=== PATIENT | female | born 1965 | race Two or more races ===

== ENCOUNTER 2020-02-09 05:54 | Inpatient (IN) | payer OTHER ==
[~2020-02-09] VITALS: Ht 160 cm; Wt 72.1 kg
[2020-02-09 06:00] VITALS: BP 135/92
--- NOTE | 2020-02-09 06:00 | NUR ---
ED Nurse Note: Pt brought into ED from [facility] by [facility] RA [facility] for c/o respiratory distress and chest pain. Pt is alert and oriented x4 but is unable to verbalized needs due to trach. Pt follows commands and continues to point to her chest indicating pain. Pt is able to mouth words and nod head yes or no to questions. Per [facility], pt was being bagged en route with BVM at 15L oxygen and saturation was 100%. Pt also became diaphoretic en route per dramatic coach. Upon ED arrival, pt is breathing normal and unlabored. Pt connected to monitor and storage bin tender and HR is elevated in 140's. ERMD is aware and bedside. Safety measures in place; will continue to closely monitor pt.
--- NOTE | 2020-02-09 06:05 | NUR ---
ED Nurse Note: RT is bedside and placing pt on mechanical ventilator. Pt vent settings are PEEP 5.0, TV 550, Fi02 30%, set RR 6.
--- NOTE | 2020-02-09 06:14 | Emergency Room Report ---
History of Present Illness General Chief Complaint: Dyspnea/Respdistress Source: Medical Record, EMS Present Illness HPI Disclaimer: Please note that this report is being documented using DRAGON technology. This can lead to erroneous entry secondary to incorrect interpretation by the dictating instrument. HPI: 54-year-old female history of breast cancer status post chemotherapy, anemia, chronic trach and vent dependent for respiratory failure, dysphagia with G-tube feeds presents for evaluation of chest pain. Per EMS, the patient motioned to nursing staff at her convalescent home that she was experiencing chest pain nonverbally approximately 30 minutes prior to arrival. She seemed to have difficulty breathing on EMS arrival causing them to disconnect her from the vent and performed bag mask maneuvers however they stated she was "fighting " in the bag. She was saturating 100% during transport and arrives in stable condition. PMH: Respiratory failure, breast cancer, anemia PSH: Tracheostomy, gastrostomy Allergies: Reviewed Social Hx: Reviewed Allergies: Coded Allergies: No Known Allergies (Unverified , 02/09/20) COVID-19 Screening Contact w/high risk pt: Yes Experienced COVID-19 symptoms?: Yes COVID-19 Testing performed INVENTORY SPECIALIST: No Review of Systems All Other Systems: negative except mentioned in HPI Physical Exam Vital Signs Date Time Temp Pulse Resp B/P (MAP) Pulse Ox O2 Delivery O2 Flow Rate FiO2 02/09/20 05:54 140 24 159/84 (109) 100 Non-Rebreather 15.0 General: Awake and alert, no acute distress HEENT: NC/AT. EOMI. Neck: Supple, trachea midline, tracheostomy tube in place Cardiovascular: Tachycardic. Resp: Trach dependent. Normal work of breathing. Abdomen: Abdomen is soft, nondistended. G-tube in place. : Arrives with Vann catheter Skin: Intact. Multiple discolorations over the face and trunk consistent with vitiligo. No abrasions, laceration or rash over the exposed skin MSK: Normal tone and bulk. No obvious deformity. Neuro: Awake and alert. Appears to be mentating appropriately though is nonverbal. Procedures Critical Care Time Critical Care Time Total critical care time: Approximately 45 minutes Due to a high probability of clinically significant, life threatening deterioration, the patient required the highest level of preparedness to intervene emergently and I personally spent this critical care time directly and personally managing the patient. This critical care time included obtaining a history, examining the patient, pulse oximetry, ordering and reviewing studies , ordering treatments, evaluating response to treatment and updating management plan as needed, frequent reassessment and discussion with other providers as well as arranging for ultimate disposition. This critical to care time was performed to assess and manage the high probability of life-threatening deterioration that could result in multiorgan failure. This critical care time is separate from the separately billable procedures and treating other patients. Medical Decision Making Diagnostic Impression: Primary Impression: Pneumonia Additional Impressions: UTI (urinary tract infection) Sepsis ER Course This a 54-year-old female presenting from convalescent home for complaints of left-sided chest pain beginning this morning. Patient was treated for dependent arrives without evidence of respiratory distress though EMS noted increased work of breathing and diaphoresis prior to arrival. She arrives tachycardic though stable condition. Concern for arrhythmia, ACS, pneumonia, pneumothorax, COVID-19 infection, UTI, sepsis among other differential diagnosis. Broad work-up initiated including cultures, lactate, chest x-ray. EKG shows sinus tachycardia without obvious ischemic changes. Chest x-ray shows patchy bilateral infiltrates concerning for COVID-19. Patient treated with broad-spectrum antibiotics, inflammatory markers and d-dimer sent. She will require admission 0720: Labs showed negative rapid test for COVID-19. Slight elevation in white count at 13.3. Anemia with a hemoglobin of 9.1 and a normal MCV. Elevated lactate at 4.0 and patient receiving 30 cc/kg IV fluid bolus per sepsis protocol. Inflammation markers elevated as is BN peptide though troponin is within normal limits. D-dimer is pending as is urinalysis. Patient received broad-spectrum antibiotics with Zosyn and vancomycin. She will be admitted to her PMD, Dr. Medina, in the SDU. Heart rate improving Sepsis reevaluation: I, Dr. Thad Vasquez, reevaluated the patient Capillary refill: Less than 2 seconds MAP:80 Heart rate: 120 Respiratory rate: 20 Initial Lactate: 4.0 Repeat Lactate: pending Pressors: Not indicated Laboratory Tests Test 02/09/20 06:00 02/09/20 06:20 02/09/20 07:10 White Blood Count 13.3 K/UL (4.8-10.8) H Red Blood Count 3.26 M/UL (4.20-5.40) L Hemoglobin 9.1 G/DL (12.0-16.0) L Hematocrit 30.3 % (37.0-47.0) L Mean Corpuscular Volume 93 FL (80-99) Mean Corpuscular Hemoglobin 28.0 PG (27.0-31.0) Mean Corpuscular Hemoglobin Concent 30.1 G/DL (32.0-36.0) L Red Cell Distribution Width 20.8 % (11.6-14.8) H Platelet Count 345 K/UL (150-450) Mean Platelet Volume 6.5 FL (6.5-10.1) Neutrophils (%) (Auto) 52.7 % (45.0-75.0) Lymphocytes (%) (Auto) 36.7 % (20.0-45.0) Monocytes (%) (Auto) 5.8 % (1.0-10.0) Eosinophils (%) (Auto) 3.4 % (0.0-3.0) H Basophils (%) (Auto) 1.4 % (0.0-2.0) Prothrombin Time 12.1 SEC (9.30-11.50) H Prothrombin Time INR 1.1 (0.9-1.1) Activated Partial Thromboplast Time 30 SEC (23-33) D-Dimer 2.31 mg/L FEU (0.00-0.49) H Sodium Level 131 MMOL/L (136-145) L Potassium Level 4.9 MMOL/L (3.5-5.1) Chloride Level 94 MMOL/L (98-107) L Carbon Dioxide Level 31 MMOL/L (21-32) Anion Gap 6 mmol/L (5-15) Blood Urea Nitrogen 19 mg/dL (7-18) H Creatinine 0.7 MG/DL (0.55-1.30) Estimated Glomerular Filtration Rate > 60 mL/min (>60) Glucose Level 194 MG/DL (74-106) H Lactic Acid Level 4.00 mmol/L (0.4-2.0) H Pending Calcium Level 8.8 MG/DL (8.5-10.1) Phosphorus Level 4.6 MG/DL (2.5-4.9) Magnesium Level 2.2 MG/DL (1.8-2.4) Ferritin 1685 NG/ML (8-388) H Total Bilirubin 0.3 MG/DL (0.2-1.0) Aspartate Amino Transferase (AST) 79 U/L (15-37) H Alanine Aminotransferase (ALT) 35 U/L (12-78) Alkaline Phosphatase 547 U/L (46-116) H Lactate Dehydrogenase 468 U/L (81-234) H Total Creatine Kinase 34 U/L (26-308) Creatine Kinase MB 2.7 NG/ML (0.0-3.6) Creatine Kinase MB Relative Index 7.9 Troponin I 0.042 ng/mL (0.000-0.056) C-Reactive Protein, Quantitative 10.7 mg/dL (0.00-0.90) H Pro-B-Type Natriuretic Peptide 58829 pg/mL (0-125) H Total Protein 9.5 G/DL (6.4-8.2) H Albumin 1.7 G/DL (3.4-5.0) L Globulin 7.8 g/dL Albumin/Globulin Ratio 0.2 (1.0-2.7) L Urine Color Yellow Urine Appearance Very cloudy Urine pH 8.0 (4.5-8.0) Urine Specific Mcclusky 1.005 (1.005-1.035) Urine Protein Negative (NEGATIVE) Urine Glucose (UA) Negative (NEGATIVE) Urine Ketones Negative (NEGATIVE) Urine Blood 2+ (NEGATIVE) H Urine Nitrite Negative (NEGATIVE) Urine Bilirubin Negative (NEGATIVE) Urine Urobilinogen Normal MG/DL (0.0-1.0) Urine Leukocyte Esterase 3+ (NEGATIVE) H Urine RBC 2-4 /HPF (0 - 2) H Urine WBC 15-20 /HPF (0 - 2) H Urine Squamous Epithelial Cells Few /LPF (NONE/OCC) Urine Triple Phosphate Crystals Many /LPF (NONE) H Urine Bacteria Moderate /HPF (NONE) H Microbiology Date/Time Source Procedure Growth Status 02/09/20 06:20 Nasopharynx SARS-CoV-2 RdRp Gene Assay - Final Complete EKG Diagnostic Results EKG Time: 05:53 Rate: tachycardiac Other Impression Sinus tachycardia, right axis deviation, precordial Q waves. No acute ST segment changes. Rhythm Strip Diag. Results Rhythm Strip Time: 05:53 EP Interpretation: yes Rate: 140s Rhythm: no PVC's, no ectopy Chest X-Ray Diagnostic Results Chest X-Ray Diagnostic Results : Chest X-Ray Ordered: Yes # of Views/Limited/Complete: 1 View Indication: Chest Pain EP Interpretation: Yes Interpretation: other - Bilateral patchy infiltrates, tracheostomy appears in place. Impression: Other - Bilateral patchy infiltrates consistent with pneumonia, trach in place Electronically Signed by: Electronically signed by Dr. Thad Vasquez Last Vital Signs Date Time Temp Pulse Resp B/P (MAP) Pulse Ox O2 Delivery O2 Flow Rate FiO2 02/09/20 05:54 140 24 159/84 (109) 100 Non-Rebreather 15.0 Disposition: ADMITTED INPATIENT Condition: Serious Thad Vasquez MD Feb 09, 2020 06:14
[2020-02-09] MEDS ORDERED: METOPROLOL TART25 MG GT (06:17)
[2020-02-09] MEDS ORDERED: BENADRYL25 M3 GT (06:17)
[2020-02-09] MEDS ORDERED: SYNTHROID25 MCG GT (06:17)
[2020-02-09] MEDS ORDERED: EPOGEN10000 UNIT SUBQ (06:17)
[2020-02-09] MEDS ORDERED: CATAPRES0.1 MG GT (06:17)
[2020-02-09] MEDS ORDERED: FAMOTIDINE20 MG GT (06:17)
[2020-02-09 06:30] VITALS: BP 101/77
[2020-02-09] MEDS ORDERED: Vancomycin 1 GM in NS 275 ML IVPB ONE (06:30)
[2020-02-09] MEDS ORDERED: Piperacillin/Tazobactam 4.5 GM in NS 110 ML IVPB ONE (06:30)
--- NOTE | 2020-02-09 06:30 | NUR ---
ED Nurse Note: Pt is tolerating mechanical ventilator well and is not pulling at tubing. Pt oxygen saturation remains at 100% at this time. See vitals flow sheet.
[2020-02-09 06:31] LABS: BASOPHILS % (AUTO) 1.4 % (0.0-2.0); EOSINOPHILS % (AUTO) 3.4 % (0.0-3.0); HEMATOCRIT 30.3 % (37.0-47.0); HEMOGLOBIN 9.1 G/DL (12.0-16.0); LYMPHOCYTES % (AUTO) 36.7 % (20.0-45.0); MEAN CORPUSCULAR VOLUME 93 FL (80-99); MONOCYTES % (AUTO) 5.8 % (1.0-10.0); NEUTROPHILS % (AUTO) 52.7 % (45.0-75.0); PLATELET COUNT 345 K/UL (150-450); RED BLOOD COUNT 3.26 M/UL (4.20-5.40); RED CELL DISTRIBUTION WIDTH 20.8 % (11.6-14.8); WHITE BLOOD COUNT 13.3 K/UL (4.8-10.8)
[2020-02-09 06:42] LABS: ANION GAP 6 mmol/L (5-15); BLOOD UREA NITROGEN 19 mg/dL (7-18); CALCIUM 8.8 MG/DL (8.5-10.1); CARBON DIOXIDE 31 MMOL/L (21-32); CHLORIDE 94 MMOL/L (98-107); CREATININE 0.7 MG/DL (0.55-1.30); POTASSIUM 4.9 MMOL/L (3.5-5.1); SODIUM 131 MMOL/L (136-145)
[2020-02-09 06:44] LABS: INR 1.1 (0.9-1.1)
[2020-02-09 06:54] LABS: ALANINE AMINOTRANSFERASE 35 U/L (12-78); ALBUMIN 1.7 G/DL (3.4-5.0); ALBUMIN/GLOBULIN RATIO 0.2 (1.0-2.7); ALKALINE PHOSPHATASE 547 U/L (46-116); ASPARTATE AMINO TRANSFERASE 79 U/L (15-37); BILIRUBIN,TOTAL 0.3 MG/DL (0.2-1.0); CKMB 2.7 NG/ML (0.0-3.6); CREATINE KINASE 34 U/L (26-308); PHOSPHORUS 4.6 MG/DL (2.5-4.9)
--- NOTE | 2020-02-09 07:08 | Diagnostic Imaging Report ---
EXAM: XR Chest, 1 View CLINICAL HISTORY: CP TECHNIQUE: Frontal view of the chest. COMPARISON: No relevant prior studies available. FINDINGS: Lungs: Patchy bilateral interstitial and airspace opacities. Pleural space: Likely small pleural effusions. Heart: Cardiomegaly. Bones/joints: Unremarkable. Tubes, lines and devices: Tracheostomy cannula in place. IMPRESSION: 1. Patchy bilateral interstitial and airspace opacities. Differential includes multifocal infection and alveolar/interstitial edema. 2. Cardiomegaly. 3. Likely small pleural effusions.
--- NOTE | 2020-02-09 07:10 | NUR ---
HAND-OFF: Report given to MAGI Flowers and endorsed plan of care.
[2020-02-09 07:11] VITALS: BP 108/74
--- NOTE | 2020-02-09 07:11 | NUR ---
ED Nurse Note: Pt VSS, considering pt baseline tachy cardia, at 115. Pt well ventilated at 100% (please view vent settings in interventions). Lactic acid reflex collected, with vre/cre, mrsa swabs. WCP taken and will be uploaded. pt has multiple pressure like ulcers all over upper and lower extremities as well as abdomen. pt has 3-4 pressure ulcers on sacrum. Pt diaper removed, pt defecated and was cleaned.
[2020-02-09 07:27] LABS: COLOR,URINE YELLOW
[2020-02-09 07:28] LABS: APPEARANCE,URINE VERY CLOUDY; BILIRUBIN, URINE NEGATIVE (NEGATIVE); GLUCOSE, URINE (UA) NEGATIVE (NEGATIVE); KETONES,URINE NEGATIVE (NEGATIVE); LEUKOCYTE ESTERASE ,URINE 3+ (NEGATIVE); NITRITE,URINE NEGATIVE (NEGATIVE); PROTEIN,URINE NEGATIVE (NEGATIVE); UROBILINOGEN,URINE NORMAL MG/DL (0.0-1.0)
--- NOTE | 2020-02-09 07:34 | NUR ---
NURSE NOTES: Received report from MAGI Flowers. Waiting for a bed and for room to be cleaned. Will call when ready.
--- NOTE | 2020-02-09 07:34 | NUR ---
ED Nurse Note: Telephone report given to MAGI Hines for continuity of care. Room still being cleaned. per RN will call back when room is availale for pt to be transferred.
[2020-02-09] MEDS ORDERED: Enoxaparin 60mg Inj SUBQ ONE (07:45)
--- NOTE | 2020-02-09 08:15 | NUR ---
ED Nurse Note: Call received will prepare to transport pt.
--- NOTE | 2020-02-09 08:30 | NUR ---
ED Nurse Note: Called RT to help transfer pt to floor
--- NOTE | 2020-02-09 08:34 | NUR ---
ED Nurse Note: RT at bedside, waiting for admission packet to be prepared.
--- NOTE | 2020-02-09 08:55 | NUR ---
NURSE NOTES: Received nurse report from MAGI Hines. Patient's in stable condition, no s/s of distress or SOB, no complains of pain, c/o itchiness all over the body. AAO x 3, dysphagia, tracheostomy noted, dressing dry and intact. IV RH 22g is saline locked, flushed, patent and asymptomatic. Patient's on ventilator , setting at: SIMV 6 VT550 PEEP 5, FiO2 30%. GT noted, flushed, patent. Bed low and locked, call light within reach, side rails x 3, bed alarm is armed, fall education given. ID band checked, ekg monitor applied, changed gown, patient's belonging list went over with two nurses and patient at bedside, signed by both nurses. Wound assessment performed and pictures taken. Suction and oral care provided. Will continue to monitor.
--- NOTE | 2020-02-09 08:55 | NUR ---
TRANSFER TO FLOOR: Patient transferred to SDU as ordered, per ERMD. Report given to jonel petty. pt belongings given to pt.
--- NOTE | 2020-02-09 08:56 | NUR ---
HAND-OFF: Report given to Kyleigh Smith RN. Patient is in bed, vss, no acute distress, and on laboratory monitor. No admitting order at this time. Patient recently transferred to SDU from ED.
--- NOTE | 2020-02-09 10:00 | NUR ---
NURSE NOTES: Called Dr. Dominguez and got admission orders from MD. Orders acknowledged and carried out. VS BP 117/78, HR 116, Temp 96.1, O2 98%, RR 18. [facility]: Glucerna 1.2 at 60cc/hr, no flu and PNA vaccination; patient refused.
--- NOTE | 2020-02-09 10:30 | NUR ---
NURSE NOTES: Left message and made DR. Medina aware that patient has one time of PSVT of 149 beats. Awaiting for response.
[2020-02-09 12:00] VITALS: BP 99/67
[2020-02-09] MEDS ORDERED: Piperacillin/Tazobactam 3.375 GM in NS 110 ML IVPB SCH (12:00)
[2020-02-09] MEDS: DiphenhydrAMINE 25mg/10ml Elixir GT PRN (12:06)
[2020-02-09] MEDS: Acetaminophen 650mg/20.3ml GT PRN (12:06)
--- NOTE | 2020-02-09 12:14 | Consultation ---
DATE OF CONSULTATION: 02/09/2020 INFECTIOUS DISEASES CONSULTATION CONSULTING PHYSICIAN: Hong Camacho MD. REFERRING PHYSICIAN: Stevenson Medina MD. REASON FOR CONSULTATION: Pneumonia. HISTORY OF PRESENTING ILLNESS: This is a 54-year-old lady with history of breast cancer, status post chemotherapy, respiratory failure, status post tracheostomy, status post G-tube placement for dysphagia, who came in from a convalescent facility with chest pain and shortness of breath. There was a concern for pneumonia and a urinary tract infection and an Infectious Diseases consultation has been obtained for antibiotics. PAST MEDICAL HISTORY: 1. History of breast cancer, status post chemotherapy. 2. Respiratory failure, status post tracheostomy. 3. Anemia. 4. Status post G-tube placement. SOCIAL HISTORY: Unknown. FAMILY HISTORY: Unknown. REVIEW OF SYSTEMS: Unable to obtain currently. MEDICATIONS: As an inpatient, she is on levothyroxine, Protonix, subcutaneous heparin, Mylanta, clonidine, Zosyn, famotidine, Benadryl, metoprolol, IV vancomycin, Tylenol. ALLERGIES: No known drug allergies. PHYSICAL EXAMINATION: VITAL SIGNS: Temperature of 98.1, T-max of 98.1, pulse of 117, respiratory rate 22, blood pressure 106/75, O2 saturation of 99%. HEENT: Pupils equally reactive to light and accommodation. Mouth appears clean without thrush. NECK: Supple. No adenopathy. No JVD. Tracheostomy site is clean CARDIOVASCULAR: Regular rate and rhythm. No murmurs. LUNGS: Clear to auscultation bilaterally. No crackles. No wheezes. ABDOMEN: Soft, nontender. G-tube site appears clean. EXTREMITIES: No cyanosis, no clubbing, no edema. LABORATORY AND DIAGNOSTIC DATA: White count 13.3, hemoglobin 9.1, hematocrit 30.3, MCV 93, platelet count 345,000 with neutrophils of %. Sodium 131, potassium 4.9, chloride 94, bicarb 31, BUN 19, creatinine 0.9, glucose 194, calcium 8.8. Ferritin 1685. Total bilirubin 0.3. AST 79, ALT 35, alkaline phosphatase 547. LDH 468. CK 34, CK-MB 2.7. Troponin 0.042. C-reactive protein 10.7. Beta-natriuretic peptide 13,872. Total protein 9.5, albumin 1.7. UA is showing 15 to 20 white cells. COVID-19 test is negative. Chest x-ray is showing patchy bilateral interstitial and airspace opacities, consists multifocal infection, cardiomegaly, likely small pleural effusion. ASSESSMENT: This is a 54-year-old lady with history of breast cancer, status post chemotherapy, who comes in with hypoxia and was found to have. 1. Likely pneumonia, her COVID-19 rapid test was negative. 2. Respiratory failure, status post tracheostomy. 3. Urinary tract infection. PLAN: 1. Continue IV vancomycin and Zosyn. 2. We will follow up cultures and adjust antibiotics accordingly. 3. We will order sputum for Gram stain and culture. I would like to thank, Dr. Medina, for this consultation. Hong Camacho M.D. DR: AUBREY JOB#: [id number] CC: Stevenson Medina MD.; Fax#: [phone]
[2020-02-09] MEDS: Metoprolol Tartrate 12.5mg TAB GT SCH ×2 (12:41→21:11)
--- NOTE | 2020-02-09 14:17 | NUR ---
CASE MANAGEMENT:INITIAL REVIEW 54 YR OLD FEMALE BIBA FROM [facility] [place] CC;DYSPNEA. RESPIRATORY DISTRESS. SI;CHEST PAIN 97.9 140 24 159/84 100% 15L FIO2 @ 30% WBC 13.3 H/H 9.1/30.3 NA 131 BUN 19 BG 194 AST 79 ALK PHOS 547 BNP 07783 ALB 1.7 PT 12.1 D-DIMER 2.31 UA+ BLOOD, LEUKOCYTE ESTERASE, RBC, WBC, TRIPLE PHOS CRYSTALS, BACTERIA COVID-19 ~ NEGATIVE CXR~1. Patchy bilateral interstitial and airspace opacities. Differential includes multifocal infection and alveolar/interstitial edema. 2. Cardiomegaly. 3. Likely small pleural effusions. IS;VANCOMYCIN IV ZOSYN IV IVF NS BOLUS LOVENOX SUBQ ADMITTED TO [facility] 02/09/20 @ 0728 [facility] STATUS DCP;FROM [facility] [place]
--- NOTE | 2020-02-09 14:38 | NUR ---
INSURANCE CLINICALS AND REVIEW HAVE BEEN FAXED TO [facility] P: [phone] F: [phone]
[2020-02-09] MEDS: Zosyn 3.375gm q8h **Extended infusion IVPB SCH ×4 (14:55→21:11)
--- NOTE | 2020-02-09 15:31 | NUR ---
NURSE NOTES:WOUND CARE NOTES:Pt presented on admission with Pressure Injuries, Tracheostomy,Alopecia, Generalized Hypopigmented Skin plaques. Few plaques noted to be open lesions but are pink and dry. Skin assessed under collar of trach and no areas of skin breakdown noted. Full thickness Pressure injury noted to R Buttocks(L)5.7cm x (W)1.7cm x (D)0.3cm. Base of wound is 90% beefy-red,10% slough. Borders are macerated . surrounding dry skin with hypopigmented plaques. Full thickness Pressure injury L Buttocks(L)4.6cm x (W)4.5cm. Base of wound has clusters wounds with intertwining bridges. Wounds have mixed slough and jack appearances. Small amt serous exudate noted. Surrounding dry hypopigmented skin plaques. Proximally and in close proximity skin is denuded. Small pustule with surrounding erythema noted L Hallux(L)0.5cm x (W)0.6cm. NO changes in skin temp periwound. An area of hyperpigmentation from previous wound noted to medial/posterior R Heel. L Heel is otherwise boggy with non-blanching erythema. Reabsorbed DTPI L Heel(L)2.2cm x (W)2cm. Dry brown eschar at base of wound. NO erythema or fluctuance periwound. Unstageable Pressure injury L lateral Malleolus(L)0.7cm x (W)0.9cm. Base of wound has 100% slough.edges dry and adherent to base of wound. No erythema,induration,or fluctuance periwound. Tx.Plan: Cleanse wounds R and L Buttocks with Saline. Apply Therahoney to wounds. Apply Moisture Barrier Paste Periwound. Cover with Optifoam drsg Daily and prn. Apply Betadine to wound R Hallux. Cover with Optifoam drsg every 3 days and prn. Apply Betadine to L lateral Malleolus. Cover with Optifoam drsg. Change every 3 days and prn. Apply Cavilon Skin Barrier to both heels. Cover each heel with Optifoam drsg. Change every 7 days and prn. Reposition at least every 2hours or as tolerated. Off-load heels with pillow. APM/ELIDIA Mattress overlay.
[2020-02-09 16:00] VITALS: BP 93/60
--- NOTE | 2020-02-09 16:00 | NUR ---
NURSE NOTES: Notified and made Dr. Medina aware again of PSVT at 1030 and patient's been sinus tach; no math professor consult. MD ordered NS bolus x1. Order acknowledged and carried out.
--- NOTE | 2020-02-09 18:26 | Consultation ---
History of Present Illness General Date patient seen: Feb 09, 2020 Chief Complaint: Dyspnea/Respdistress Present Illness HPI This is a unfortunate 54-year-old female with history of breast cancer status post chemotherapy, anemia, chronic trach and vent dependent for respiratory failure, dysphagia with G-tube feeds presents for evaluation of chest pain. Per EMS, the patient motioned to nursing staff at her convalescent home that she was experiencing chest pain nonverbally approximately 30 minutes prior to arrival. She seemed to have difficulty breathing on EMS arrival causing them to disconnect her from the vent and performed bag mask maneuvers however they stated she was "fighting" in the bag. She was saturating 100% during transport and arrives in stable condition. admitted for care and management. surgery called to evaluate and assist with care. Allergies: Coded Allergies: No Known Allergies (Unverified , 02/09/20) Medication History Scheduled Clonidine Hcl* (Catapres*), 0.1 MG GT EVERY 6 HOURS, (Reported) Epoetin Liam (Epogen), 10,000 UNIT SUBQ 3XW, (Reported) Famotidine* (Pepcid 20mg tablet*), 20 MG GT TWICE A DAY, (Reported) Levothyroxine Sodium* (Synthroid*), 75 MCG GT DAILY, (Reported) Metoprolol Tartrate* (Metoprolol Tartrate*), 12.5 MG GT EVERY 12 HOURS, ( Reported) Miscellaneous Medications Diphenhydramine HCl (Benadryl), 25 MG GT, (Reported) Patient History Limited by: medical condition History Provided By: Medical Record, PMD Healthcare decision maker N Resuscitation status Advanced Directive on File Past Medical/Surgical History Past Medical/Surgical History: (1) Sepsis (2) UTI (urinary tract infection) (3) Pneumonia Review of Systems ROS Narrative unable to obtain given medical condition Physical Exam General Appearance: no apparent distress, mild distress Lines, tubes and drains: peripheral HEENT: mucous membranes moist Neck: normal inspection, trach Respiratory/Chest: on vent Cardiovascular/Chest: normal peripheral pulses, normal rate, regularly irregular Abdomen: soft, no organomegaly, no mass, feeding tube Genitourinary/Rectal: normal rectal exam Extremities: normal inspection, slow capillary refill Skin Exam: warm/dry, rash, other Neurologic: unresponsiveness Last 24 Hour Vital Signs Date Time Temp Pulse Resp B/P (MAP) Pulse Ox O2 Delivery O2 Flow Rate FiO2 02/09/20 17:07 119 24 30 02/09/20 16:00 30 02/09/20 16:00 98.2 114 21 93/60 (71) 100 02/09/20 15:58 Mechanical Ventilator 02/09/20 15:30 118 23 30 02/09/20 15:26 112 02/09/20 13:23 118 23 100 Mechanical Ventilator 30 02/09/20 13:00 120 23 30 02/09/20 12:41 91 117/78 02/09/20 12:00 30 02/09/20 12:00 97.3 115 18 99/67 (78) 98 02/09/20 12:00 Mechanical Ventilator 02/09/20 12:00 121 02/09/20 11:30 119 22 30 02/09/20 10:36 Mechanical Ventilator 02/09/20 10:22 149 02/09/20 09:19 118 02/09/20 08:50 98.1 117 22 106/75 99 Mechanical Ventilator 15.0 30 02/09/20 08:45 118 19 30 02/09/20 07:11 97.9 115 23 108/74 100 Mechanical Ventilator 15.0 30 02/09/20 06:34 133 22 30 02/09/20 06:30 97.5 119 20 101/77 100 Mechanical Ventilator 30 02/09/20 06:00 97.8 140 24 135/92 100 Ambu-Bag 15.0 02/09/20 06:00 140 24 Ambu-Bag 15.0 02/09/20 05:54 140 24 159/84 (109) 100 Non-Rebreather 15.0 Laboratory Tests Test 02/09/20 06:00 02/09/20 06:20 02/09/20 07:10 02/09/20 11:30 White Blood Count 13.3 K/UL (4.8-10.8) H Red Blood Count 3.26 M/UL (4.20-5.40) L Hemoglobin 9.1 G/DL (12.0-16.0) L Hematocrit 30.3 % (37.0-47.0) L Mean Corpuscular Volume 93 FL (80-99) Mean Corpuscular Hemoglobin 28.0 PG (27.0-31.0) Mean Corpuscular Hemoglobin Concent 30.1 G/DL (32.0-36.0) L Red Cell Distribution Width 20.8 % (11.6-14.8) H Platelet Count 345 K/UL (150-450) Mean Platelet Volume 6.5 FL (6.5-10.1) Neutrophils (%) (Auto) 52.7 % (45.0-75.0) Lymphocytes (%) (Auto) 36.7 % (20.0-45.0) Monocytes (%) (Auto) 5.8 % (1.0-10.0) Eosinophils (%) (Auto) 3.4 % (0.0-3.0) H Basophils (%) (Auto) 1.4 % (0.0-2.0) Prothrombin Time 12.1 SEC (9.30-11.50) H Prothromb Time International Ratio 1.1 (0.9-1.1) Activated Partial Thromboplast Time 30 SEC (23-33) D-Dimer 2.31 mg/L FEU (0.00-0.49) H Sodium Level 131 MMOL/L (136-145) L Potassium Level 4.9 MMOL/L (3.5-5.1) Chloride Level 94 MMOL/L (98-107) L Carbon Dioxide Level 31 MMOL/L (21-32) Anion Gap 6 mmol/L (5-15) Blood Urea Nitrogen 19 mg/dL (7-18) H Creatinine 0.7 MG/DL (0.55-1.30) Estimat Glomerular Filtration Rate > 60 mL/min (>60) Glucose Level 194 MG/DL (74-106) H Lactic Acid Level 4.00 mmol/L (0.4-2.0) H 1.70 mmol/L (0.66-2.22) Calcium Level 8.8 MG/DL (8.5-10.1) Phosphorus Level 4.6 MG/DL (2.5-4.9) Magnesium Level 2.2 MG/DL (1.8-2.4) Ferritin 1685 NG/ML (8-388) H Total Bilirubin 0.3 MG/DL (0.2-1.0) Aspartate Amino Transf (AST/SGOT) 79 U/L (15-37) H Alanine Aminotransferase (ALT/SGPT) 35 U/L (12-78) Alkaline Phosphatase 547 U/L (46-116) H Lactate Dehydrogenase 468 U/L (81-234) H Total Creatine Kinase 34 U/L (26-308) Creatine Kinase MB 2.7 NG/ML (0.0-3.6) Creatine Kinase MB Relative Index 7.9 Troponin I 0.042 ng/mL (0.000-0.056) 0.048 ng/mL (0.000-0.056) C-Reactive Protein, Quantitative 10.7 mg/dL (0.00-0.90) H Pro-B-Type Natriuretic Peptide 28610 pg/mL (0-125) H Total Protein 9.5 G/DL (6.4-8.2) H Albumin 1.7 G/DL (3.4-5.0) L Globulin 7.8 g/dL Albumin/Globulin Ratio 0.2 (1.0-2.7) L Urine Color Yellow Urine Appearance Very cloudy Urine pH 8.0 (4.5-8.0) Urine Specific [place] 1.005 (1.005-1.035) Urine Protein Negative (NEGATIVE) Urine Glucose (UA) Negative (NEGATIVE) Urine Ketones Negative (NEGATIVE) Urine Blood 2+ (NEGATIVE) H Urine Nitrite Negative (NEGATIVE) Urine Bilirubin Negative (NEGATIVE) Urine Urobilinogen Normal MG/DL (0.0-1.0) Urine Leukocyte Esterase 3+ (NEGATIVE) H Urine RBC 2-4 /HPF (0 - 2) H Urine WBC 15-20 /HPF (0 - 2) H Urine Squamous Epithelial Cells Few /LPF (NONE/OCC) Urine Triple Phosphate Crystals Many /LPF (NONE) H Urine Bacteria Moderate /HPF (NONE) H Test 02/09/20 16:10 Troponin I 0.044 ng/mL (0.000-0.056) Microbiology Date/Time Source Procedure Growth Status 02/09/20 06:20 Nasopharynx SARS-CoV-2 RdRp Gene Assay - Final Complete 02/09/20 07:10 Rectum Received Height (Feet): 5 Height (Inches): 3.00 Weight (Pounds): 130 Medications Current Medications Medications (Trade) Dose Ordered Sig/Lucy Route PRN Reason Start Time Stop Time Status Last Admin Dose Admin Acetaminophen (Tylenol) 650 mg Q4H PRN GT Mild Pain (Pain Scale 1-3) 02/09/20 10:30 03/10/20 10:29 02/09/20 12:06 Al Hydroxide/Mg Hydroxide (Mylanta) 30 ml FOUR TIMES A DAY GT 02/09/20 13:00 03/10/20 12:59 02/09/20 18:16 Clonidine HCl (Catapres Tab) 0.1 mg Q4H PRN GT For High Blood Pressure 02/09/20 13:45 05/09/20 13:44 Diphenhydramine HCl (Benadryl) 25 mg Q6H PRN GT ITCHING 02/09/20 10:30 03/10/20 10:29 02/09/20 12:06 Famotidine (Pepcid) 20 mg TWICE A DAY GT 02/09/20 11:00 05/09/20 10:59 02/09/20 18:16 Heparin Sodium (Porcine) (Heparin 5000 units/ml) 5,000 units EVERY 12 HOURS SUBQ 02/09/20 21:00 03/25/20 20:59 Lansoprazole (Prevacid) 30 mg DAILY GT 02/10/20 09:00 03/11/20 08:59 Levothyroxine Sodium (Synthroid) 75 mcg DAILY GT 02/10/20 09:00 03/11/20 08:59 Metoprolol Tartrate (Lopressor) 12.5 mg EVERY 12 HOURS GT 02/09/20 11:15 05/09/20 11:14 02/09/20 12:41 Piperacillin Sod/ Tazobactam Sod 3.375 gm/Sodium Chloride 110 ml @ 27.5 mls/hr EVERY 8 HOURS IVPB 02/09/20 14:00 02/14/20 13:59 02/09/20 14:55 Vancomycin HCl (Vanco pharmacy to dose) 1 ea DAILY PRN MISC Per rx protocol 02/09/20 10:30 03/10/20 10:29 Vancomycin HCl 750 mg/Sodium Chloride 275 ml @ 183.333 mls/hr Q12HR@0600,1800 IVPB 02/09/20 18:00 02/14/20 17:59 Assessment/Plan Problem List: (1) Sepsis Assessment & Plan: Leukocytosis, anemia, lactic acidosis sepsis uro uti likely wounds noted and stable unlikely etiology nutritional optimization tf as tolerated vent support cxr noted ICD Codes: A41.9 - Sepsis, unspecified organism SNOMED: 55685144 (2) UTI (urinary tract infection) ICD Codes: N39.0 - Urinary tract infection, site not specified SNOMED: 68217902 (3) Pneumonia ICD Codes: J18.9 - Pneumonia, unspecified organism SNOMED: 208233795 (4) Decubitus skin ulcer Assessment & Plan: Pt presented on admission with Pressure Injuries, Tracheostomy,Alopecia, Generalized Hypopigmented Skin plaques. Few plaques noted to be open lesions but are pink and dry. Skin assessed under collar of trach and no areas of skin breakdown noted. Full thickness Pressure injury noted to R Buttocks(L)5.7cm x (W)1.7cm x (D) 0.3cm. Base of wound is 90% beefy-red,10% slough. Borders are macerated . surrounding dry skin with hypopigmented plaques. Full thickness Pressure injury L Buttocks(L)4.6cm x (W)4.5cm. Base of wound has clusters wounds with intertwining bridges. Wounds have mixed slough and jack appearances. Small amt serous exudate noted. Surrounding dry hypopigmented skin plaques. Proximally and in close proximity skin is denuded. Small pustule with surrounding erythema noted L Hallux(L)0.5cm x (W)0.6cm. NO changes in skin temp periwound. An area of hyperpigmentation from previous wound noted to medial/posterior R Heel. L Heel is otherwise boggy with non-blanching erythema. Reabsorbed DTPI L Heel(L)2.2cm x (W)2cm. Dry brown eschar at base of wound. NO erythema or fluctuance periwound. Unstageable Pressure injury L lateral Malleolus(L)0.7cm x (W)0.9cm. Base of wound has 100% slough.edges dry and adherent to base of wound. No erythema, induration,or fluctuance periwound. Tx.Plan: Cleanse wounds R and L Buttocks with Saline. Apply Therahoney to wounds. Apply Moisture Barrier Paste Periwound. Cover with Optifoam drsg Daily and prn. Apply Betadine to wound R Hallux. Cover with Optifoam drsg every 3 days and prn. Apply Betadine to L lateral Malleolus. Cover with Optifoam drsg. Change every 3 days and prn. Apply Cavilon Skin Barrier to both heels. Cover each heel with Optifoam drsg. Change every 7 days and prn. Reposition at least every 2hours or as tolerated. Off-load heels with pillow. APM/ELIDIA Mattress overlay. ICD Codes: L89.90 - Pressure ulcer of unspecified site, unspecified stage SNOMED: 483916667 Zia Chung Feb 09, 2020 18:26
[2020-02-09] MEDS: Vancomycin 750mg/NS 275ml IVPB SCH ×2 (18:59)
--- NOTE | 2020-02-09 19:15 | NUR ---
NURSE HAND-OFF REPORT: Important Events on Shift: Multiple wounds, diarrhea, 1 episode of PSVT Patient Status: Fair, anxious Diet: Glucerna 1.2 @ 60cc/hr Pending Orders: n.a Pending Results/Labs:Troponin AM, CMP/CBC AM, Chest Xray AM Pending MD notification: n.a Latest Vital Signs: Temperature 98.2 , Pulse 116 , B/P 93 /60 , Respiratory Rate 23 , O2 SAT 100 , Mechanical Ventilator, O2 Flow Rate 15.0 . Vital Sign Comment: n.a EKG Rhythm: Sinus Tachycardia Rhythm change?: N MD Notified?: - MD Response: Message left await call Latest Hope Fall Score: 35 Fall Risk: Medium Risk Safety Measures: Call light , Bed Alarm Zone 1, Side Rails Side Rails x2, Bed position Low and Locked. Fall Precautions: Report given to Ese Teresa RN
--- NOTE | 2020-02-09 19:15 | NUR ---
NURSE NOTES: Received pt's report from MAGI Iraheta. Pt is on bed with open eyes. A/O X 3, Pt is on vent but able to express what pt needs. SpO2 100%, HR 118 at this moment. Informed that Pt was on sinus tachycardia since admission. Pt is on Vann, yellow urine noted. Pt's skin, all of pt's body has small open wounds but not from the pressure. Pt's sacral-stage 3 wound noted. IV site on the left hand, intact and clean noted. Call-light within reach, bed is low and locked. Will continue to monitor with plan of care.
[2020-02-09 20:00] VITALS: BP 121/69
[2020-02-09] MEDS: Heparin 5000 units/ml inj SUBQ SCH (21:10)
[2020-02-10] VITALS: BP 112/85
--- NOTE | 2020-02-10 00:44 | Consultation ---
DATE OF CONSULTATION: 02/09/2020 CONSULTING PHYSICIAN: Luis Felipe Sorto M.D. REQUESTING PHYSICIAN: Stevenson Medina M.D. REASON FOR CONSULTATION: Cardiomyopathy, severe sepsis, tachycardia, and chest pain. HISTORY OF PRESENT ILLNESS: This 54-year-old resides at a [facility] facility. She has a tracheostomy and has chronic ventilator dependency for respiratory failure as well as a G-tube for nutrition. She apparently complained of chest pain and some shortness of breath. She was noted to have abnormal laboratory studies. She was seen in the emergency room and admitted for further management. The patient had an echocardiogram earlier this afternoon and was noted to have mild left ventricular global hypokinesis with ejection fraction of approximately 45%. I have been asked to assist with cardiovascular care. PAST MEDICAL HISTORY: Breast cancer with history of chemotherapy and anemia due to chronic disease, respiratory failure with trach, dysphagia with gastrostomy tube, and hypothyroidism. ALLERGIES: None. MEDICATIONS: Reviewed and reconciled. SOCIAL HISTORY: No record of smoking, alcohol, or substance abuse. REVIEW OF SYSTEMS: Not obtainable from the patient. According to her son, she was recently hospitalized and just discharged back to the [facility] facility couple of days ago following treatment of infection. PHYSICAL EXAMINATION: VITAL SIGNS: Blood pressure 99/67, heart rate 121, respiratory rate 18, and afebrile. HEENT: Temporal wasting. LUNGS: Bilateral breath sounds with rhonchi. CARDIAC: Regular rhythm. Rapid rate. Normal S1 and S2. ABDOMEN: Soft with G-tube. No skin site infection. EXTREMITIES: Without edema. LABORATORY DATA: White count 13 and hemoglobin 9.1. Sodium 131, potassium 4.9, chloride 94, bicarb 31, BUN 19, and creatinine 0.9. Lactic acid this morning was 4, repeated is 1.7. Troponin is 0.042. Pronatriuretic peptide is almost 14,000, albumin 1.7. IMPRESSION: 1. Probable sepsis. 2. Possible healthcare associated pneumonia. 3. Acute on chronic systolic and diastolic congestive heart failure. 4. Cardiomyopathy, etiology unknown, but may be due to chemotherapy. 5. Ventilator-dependent respiratory failure. 6. Urinary tract infection. 7. Sinus tachycardia. 8. Severe protein calorie malnutrition. 9. Hyponatremia. 10. Hypochloremia. 11. Anemia due to chronic disease. 12. Acute myocardial ischemia. PLAN: 1. Saline hydration. 2. Antimicrobials per Infectious Disease method consultant. 3. Ventilator support. 4. Cardiac monitoring. 5. Thyroid panel. 6. Initiate beta-mingo with hold parameters for low range blood pressure. 7. DVT prophylaxis. 8. Serial troponins. 9. Trend BNP and monitor volume status closely. 10. The patient is high risk. Luis Felipe Sorto M.D. DR: ANGELINA JOB#: [id number] CC: MIRNA
[2020-02-10 04:00] VITALS: BP 113/80
[2020-02-10 04:39] LABS: HEMATOCRIT 26.8 % (37.0-47.0); HEMOGLOBIN 8.1 G/DL (12.0-16.0); MEAN CORPUSCULAR VOLUME 93 FL (80-99); PLATELET COUNT 315 K/UL (150-450); RED BLOOD COUNT 2.89 M/UL (4.20-5.40); RED CELL DISTRIBUTION WIDTH 20.9 % (11.6-14.8); WHITE BLOOD COUNT 8.7 K/UL (4.8-10.8)
[2020-02-10 04:52] LABS: ANION GAP 4 mmol/L (5-15); BLOOD UREA NITROGEN 19 mg/dL (7-18); CALCIUM 8.2 MG/DL (8.5-10.1); CARBON DIOXIDE 29 MMOL/L (21-32); CHLORIDE 103 MMOL/L (98-107); CREATININE 0.7 MG/DL (0.55-1.30); POTASSIUM 4.2 MMOL/L (3.5-5.1); SODIUM 136 MMOL/L (136-145)
--- NOTE | 2020-02-10 05:50 | NUR ---
NURSE NOTES: Called Dr. Medina and left a message regarding Pt's elevated troponin level, 0.065. Awaiting for his response.
[2020-02-10] MEDS: Zosyn 3.375gm q8h **Extended infusion IVPB SCH ×6 (06:11→20:30)
[2020-02-10] MEDS: Vancomycin 750mg/NS 275ml IVPB SCH ×4 (06:11→18:07)
--- NOTE | 2020-02-10 07:32 | NUR ---
NURSE HAND-OFF REPORT: Important Events on Shift:Troponin went up. Patient Status: Sinus tachy. Diet: GT, Glucerna 1.2@60mL/HR Pending Orders: N Pending Results/Labs: Pending MD notification: Notified Dr. Medina, regarding pt's elevated troponin level 0.065. Latest Vital Signs: Temperature 97.3 , Pulse 125 , B/P 113 /80 , Respiratory Rate 23 , O2 SAT 100 , Mechanical Ventilator, O2 Flow Rate 15.0 . Vital Sign Comment: Stable, except sinus tachycardia. EKG Rhythm: Sinus Tachycardia Rhythm change?: N MD Notified?: - MD Response: Message left await call Latest Hope Fall Score: 50 Fall Risk: High Risk Safety Measures: Call light Within Reach, Bed Alarm Zone 3, Side Rails Side Rails x3, Bed position Low and Locked. Fall Precautions: Yellow Socks Yellow Gown Patient Fall Education Report given to MAGI Iraheta.
--- NOTE | 2020-02-10 07:35 | NUR ---
NURSE NOTES: Nurse report given by Shayan Silva RN. Patient's awake, AAO x3, dysphasia, trach presents with ventilator SIMV 6 VT550 FIO2 30% Peeps 5. IV on LH and RAC running fluids, no s/s of tenderness or infiltration. GT noted, tube feeding running, no residuals. Bed low and locked, call light within reach, side rails x 3. Will continue to monitor. Addendum: 02/10/20 at 0938 by Kyleigh Smith RN Continuing note: Edwar noted, draining well, yellow color. Skin assessment performed, dressing changed.
[2020-02-10 08:00] VITALS: BP 118/78
[2020-02-10] MEDS: Levothyroxine 25mcg tab GT SCH (08:29)
[2020-02-10] MEDS: Metoprolol Tartrate 12.5mg TAB GT SCH ×2 (08:29→20:31)
[2020-02-10] MEDS: Heparin 5000 units/ml inj SUBQ SCH ×2 (08:31→20:33)
--- NOTE | 2020-02-10 09:22 | Diagnostic Imaging Report ---
EXAM: XR Chest, 1 View CLINICAL HISTORY: PLEFF TECHNIQUE: Frontal view of the chest. COMPARISON: No relevant prior studies available. FINDINGS/IMPRESSION: EKG leads overlie the patient. Midline tracheostomy tube. Extensive patchy bilateral airspace opacities, consistent with severe multifocal infiltrate. No definite pleural effusion. No pneumothorax. Cardiomegaly.
--- NOTE | 2020-02-10 10:17 | General Progress Note ---
Assessment/Plan Assessment/Plan: diarrhea respiratory failure trach sinus tachycardia anemia wounds dermatitis PLAN Cdif iv antibiotics ID noted IV hydration wound care all consultants appreciated remains ill impression, plan, and exam edited and reviewed in detail care discussed with RN Subjective ROS Limited/Unobtainable: Yes Allergies: Coded Allergies: No Known Allergies (Unverified , 02/09/20) Subjective significant diarrhea Objective Last 24 Hour Vital Signs Date Time Temp Pulse Resp B/P (MAP) Pulse Ox O2 Delivery O2 Flow Rate FiO2 02/10/20 08:29 128 118/78 02/10/20 08:21 128 02/10/20 08:00 97.7 125 23 118/78 (91) 100 02/10/20 08:00 30 02/10/20 07:16 131 22 30 02/10/20 05:00 125 23 30 02/10/20 04:00 97.3 128 24 113/80 (91) 100 02/10/20 04:00 Mechanical Ventilator 02/10/20 04:00 30 02/10/20 03:33 124 02/10/20 03:22 125 23 30 02/10/20 01:10 125 27 30 02/10/20 00:00 97.7 120 25 112/85 (94) 100 02/10/20 00:00 Mechanical Ventilator 02/10/20 00:00 30 02/09/20 23:35 127 02/09/20 22:57 125 19 30 02/09/20 21:20 127 25 30 02/09/20 21:11 128 129/79 02/09/20 20:00 Mechanical Ventilator 02/09/20 20:00 30 02/09/20 20:00 99.5 110 25 121/69 (86) 99 02/09/20 19:23 114 02/09/20 19:00 116 23 30 02/09/20 17:07 119 24 30 02/09/20 16:00 30 02/09/20 16:00 98.2 114 21 93/60 (71) 100 02/09/20 15:58 Mechanical Ventilator 02/09/20 15:30 118 23 30 02/09/20 15:26 112 02/09/20 13:23 118 23 100 Mechanical Ventilator 30 02/09/20 13:00 120 23 30 02/09/20 12:41 91 117/78 8/15/20 12:00 30 02/09/20 12:00 97.3 115 18 99/67 (78) 98 02/09/20 12:00 Mechanical Ventilator 02/09/20 12:00 121 02/09/20 11:30 119 22 30 02/09/20 10:36 Mechanical Ventilator 02/09/20 10:22 149 Intake and Output 02/09/20 02/10/20 19:00 07:00 Intake Total 800 ml 1141.666 ml Output Total 375 ml Balance 800 ml 766.666 ml Intake Free Water 200 ml IV Total 421.666 ml Tube Feeding 600 ml 720 ml Output Urine Total 375 ml # Voids 1 # Bowel Movements 2 4 Laboratory Tests 02/09/20 11:30: Troponin I 0.048 02/09/20 16:10: Troponin I 0.044 02/10/20 02:30: Troponin I 0.065H, White Blood Count 8.7, Red Blood Count 2.89L, Hemoglobin 8.1L , Hematocrit 26.8L, Mean Corpuscular Volume 93, Mean Corpuscular Hemoglobin 28.2 , Mean Corpuscular Hemoglobin Concent 30.4L, Red Cell Distribution Width 20.9H, Platelet Count 315, Mean Platelet Volume 6.5, Neutrophils (%) (Auto) , Lymphocytes (%) (Auto) , Monocytes (%) (Auto) , Eosinophils (%) (Auto) , Basophils (%) (Auto) , Differential Total Cells Counted 100, Neutrophils % ( Manual) 92H, Lymphocytes % (Manual) 3L, Monocytes % (Manual) 4, Eosinophils % ( Manual) 0, Basophils % (Manual) 1, Band Neutrophils 0, Platelet Estimate Adequate, Platelet Morphology Normal, Hypochromasia 2+, Anisocytosis 2+, Sodium Level 136, Potassium Level 4.2, Chloride Level 103, Carbon Dioxide Level 29, Anion Gap 4L, Blood Urea Nitrogen 19H, Creatinine 0.7, Estimat Glomerular Filtration Rate > 60, Glucose Level 190H, Calcium Level 8.2L Height (Feet): 5 Height (Inches): 3.00 Weight (Pounds): 130 Objective WDWN NAD trach clear breath sounds bilaterally without rhonchi or wheeze [id number] without MRG NABS nontender GT no CCE nonfocal chronic rash Stevenson Medina MD Feb 10, 2020 10:17
--- NOTE | 2020-02-10 11:04 | Surgery Progress Note ---
Surgery Progress Note Subjective Additional Comments awake and responsive with movements unable to talk s/s trach looks better today labs noted Objective Last 24 Hour Vital Signs Date Time Temp Pulse Resp B/P (MAP) Pulse Ox O2 Delivery O2 Flow Rate FiO2 02/10/20 08:29 128 118/78 02/10/20 08:21 128 02/10/20 08:00 Mechanical Ventilator 02/10/20 08:00 97.7 125 23 118/78 (91) 100 02/10/20 08:00 30 02/10/20 07:16 131 22 30 02/10/20 05:00 125 23 30 02/10/20 04:00 97.3 128 24 113/80 (91) 100 02/10/20 04:00 Mechanical Ventilator 02/10/20 04:00 30 02/10/20 03:33 124 02/10/20 03:22 125 23 30 02/10/20 01:10 125 27 30 02/10/20 00:00 97.7 120 25 112/85 (94) 100 02/10/20 00:00 Mechanical Ventilator 02/10/20 00:00 30 02/09/20 23:35 127 02/09/20 22:57 125 19 30 02/09/20 21:20 127 25 30 02/09/20 21:11 128 129/79 02/09/20 20:00 Mechanical Ventilator 02/09/20 20:00 30 02/09/20 20:00 99.5 110 25 121/69 (86) 99 02/09/20 19:23 114 02/09/20 19:00 116 23 30 02/09/20 17:07 119 24 30 02/09/20 16:00 30 02/09/20 16:00 98.2 114 21 93/60 (71) 100 02/09/20 15:58 Mechanical Ventilator 02/09/20 15:30 118 23 30 02/09/20 15:26 112 02/09/20 13:23 118 23 100 Mechanical Ventilator 30 02/09/20 13:00 120 23 30 02/09/20 12:41 91 117/78 02/09/20 12:00 30 02/09/20 12:00 97.3 115 18 99/67 (78) 98 02/09/20 12:00 Mechanical Ventilator 02/09/20 12:00 121 02/09/20 11:30 119 22 30 I&O Intake and Output 02/09/20 02/10/20 19:00 07:00 Intake Total 800 ml 1141.666 ml Output Total 375 ml Balance 800 ml 766.666 ml Intake Free Water 200 ml IV Total 421.666 ml Tube Feeding 600 ml 720 ml Output Urine Total 375 ml # Voids 1 # Bowel Movements 2 4 Dressing: dry Cardiovascular: RSR Respiratory: decreased breath sounds Abdomen: soft, non-tender, present bowel sounds Extremities: no edema, no tenderness, no cyanosis, pulses, other Laboratory Tests Test 02/09/20 11:30 02/09/20 16:10 02/10/20 02:30 Troponin I 0.048 ng/mL (0.000-0.056) 0.044 ng/mL (0.000-0.056) 0.065 ng/mL (0.000-0.056) White Blood Count 8.7 K/UL (4.8-10.8) Red Blood Count 2.89 M/UL (4.20-5.40) L Hemoglobin 8.1 G/DL (12.0-16.0) L Hematocrit 26.8 % (37.0-47.0) L Mean Corpuscular Volume 93 FL (80-99) Mean Corpuscular Hemoglobin 28.2 PG (27.0-31.0) Mean Corpuscular Hemoglobin Concent 30.4 G/DL (32.0-36.0) L Red Cell Distribution Width 20.9 % (11.6-14.8) H Platelet Count 315 K/UL (150-450) Mean Platelet Volume 6.5 FL (6.5-10.1) Neutrophils (%) (Auto) % (45.0-75.0) Lymphocytes (%) (Auto) % (20.0-45.0) Monocytes (%) (Auto) % (1.0-10.0) Eosinophils (%) (Auto) % (0.0-3.0) Basophils (%) (Auto) % (0.0-2.0) Differential Total Cells Counted 100 Neutrophils % (Manual) 92 % (45-75) H Lymphocytes % (Manual) 3 % (20-45) L Monocytes % (Manual) 4 % (1-10) Eosinophils % (Manual) 0 % (0-3) Basophils % (Manual) 1 % (0-2) Band Neutrophils 0 % (0-8) Platelet Estimate Adequate Platelet Morphology Normal Hypochromasia 2+ Anisocytosis 2+ Sodium Level 136 MMOL/L (136-145) Potassium Level 4.2 MMOL/L (3.5-5.1) Chloride Level 103 MMOL/L (98-107) Carbon Dioxide Level 29 MMOL/L (21-32) Anion Gap 4 mmol/L (5-15) L Blood Urea Nitrogen 19 mg/dL (7-18) H Creatinine 0.7 MG/DL (0.55-1.30) Estimat Glomerular Filtration Rate > 60 mL/min (>60) Glucose Level 190 MG/DL (74-106) H Calcium Level 8.2 MG/DL (8.5-10.1) L Plan Problems: (1) Sepsis Assessment & Plan: Leukocytosis, anemia, lactic acidosis sepsis uro uti likely wounds noted and stable unlikely etiology nutritional optimization tf as tolerated vent support cxr noted (2) UTI (urinary tract infection) (3) Pneumonia (4) Decubitus skin ulcer Assessment & Plan: Pt presented on admission with Pressure Injuries, Tracheostomy,Alopecia, Generalized Hypopigmented Skin plaques. Few plaques noted to be open lesions but are pink and dry. Skin assessed under collar of trach and no areas of skin breakdown noted. Full thickness Pressure injury noted to R Buttocks(L)5.7cm x (W)1.7cm x (D) 0.3cm. Base of wound is 90% beefy-red,10% slough. Borders are macerated . surrounding dry skin with hypopigmented plaques. Full thickness Pressure injury L Buttocks(L)4.6cm x (W)4.5cm. Base of wound has clusters wounds with intertwining bridges. Wounds have mixed slough and jack appearances. Small amt serous exudate noted. Surrounding dry hypopigmented skin plaques. Proximally and in close proximity skin is denuded. Small pustule with surrounding erythema noted L Hallux(L)0.5cm x (W)0.6cm. NO changes in skin temp periwound. An area of hyperpigmentation from previous wound noted to medial/posterior R Heel. L Heel is otherwise boggy with non-blanching erythema. Reabsorbed DTPI L Heel(L)2.2cm x (W)2cm. Dry brown eschar at base of wound. NO erythema or fluctuance periwound. Unstageable Pressure injury L lateral Malleolus(L)0.7cm x (W)0.9cm. Base of wound has 100% slough.edges dry and adherent to base of wound. No erythema, induration,or fluctuance periwound. Tx.Plan: Cleanse wounds R and L Buttocks with Saline. Apply Therahoney to wounds. Apply Moisture Barrier Paste Periwound. Cover with Optifoam drsg Daily and prn. Apply Betadine to wound R Hallux. Cover with Optifoam drsg every 3 days and prn. Apply Betadine to L lateral Malleolus. Cover with Optifoam drsg. Change every 3 days and prn. Apply Cavilon Skin Barrier to both heels. Cover each heel with Optifoam drsg. Change every 7 days and prn. Reposition at least every 2hours or as tolerated. Off-load heels with pillow. APM/ELIDIA Mattress overlay. Zia Chung Feb 10, 2020 11:04
[2020-02-10 12:00] VITALS: BP 115/83
--- NOTE | 2020-02-10 13:23 | Infectious Diseases Prog Note ---
Assessment/Plan Assessment/Plan A: 1. Likely pneumonia, her COVID-19 rapid test was negative. 2. Respiratory failure, status post tracheostomy. 3. Urinary tract infection. 4. Bacteremia 5. Sinus tachycardia PLAN: 1. Continue IV vancomycin and Zosyn. 2. We will follow up cultures Subjective ROS Limited/Unobtainable: Yes Constitutional: Denies: fever Respiratory: Reports: no symptoms Skin: Reports: other - itching Musculoskeletal: Reports: no symptoms Allergies: Coded Allergies: No Known Allergies (Unverified , 02/09/20) Objective Last 24 Hour Vital Signs Date Time Temp Pulse Resp B/P (MAP) Pulse Ox O2 Delivery O2 Flow Rate FiO2 02/10/20 12:00 30 02/10/20 12:00 98.1 133 21 115/83 (94) 99 02/10/20 12:00 Mechanical Ventilator 02/10/20 11:41 120 02/10/20 11:30 120 24 30 02/10/20 09:01 128 28 30 02/10/20 08:29 128 118/78 02/10/20 08:21 128 02/10/20 08:00 Mechanical Ventilator 02/10/20 08:00 97.7 125 23 118/78 (91) 100 02/10/20 08:00 30 02/10/20 07:16 131 22 30 02/10/20 05:00 125 23 30 02/10/20 04:00 97.3 128 24 113/80 (91) 100 02/10/20 04:00 Mechanical Ventilator 02/10/20 04:00 30 02/10/20 03:33 124 02/10/20 03:22 125 23 30 02/10/20 01:10 125 27 30 02/10/20 00:00 97.7 120 25 112/85 (94) 100 02/10/20 00:00 Mechanical Ventilator 02/10/20 00:00 30 02/09/20 23:35 127 02/09/20 22:57 125 19 30 02/09/20 21:20 127 25 30 02/09/20 21:11 128 129/79 02/09/20 20:00 Mechanical Ventilator 02/09/20 20:00 30 02/09/20 20:00 99.5 110 25 121/69 (86) 99 02/09/20 19:23 114 02/09/20 19:00 116 23 30 02/09/20 17:07 119 24 30 02/09/20 16:00 30 02/09/20 16:00 98.2 114 21 93/60 (71) 100 02/09/20 15:58 Mechanical Ventilator 02/09/20 15:30 118 23 30 02/09/20 15:26 112 02/09/20 13:23 118 23 100 Mechanical Ventilator 30 Height (Feet): 5 Height (Inches): 3.00 Weight (Pounds): 130 HEENT: status post trach Respiratory/Chest: lungs clear, other - on ventilator Cardiovascular: tachycardia Abdomen: soft, non tender, other - GT feeding Extremities: no edema Skin: other - depigmentation, shallow ulcers Neurologic/Psychiatric: alert, responsive Microbiology Date/Time Source Procedure Growth Status 02/09/20 06:15 Blood Blood Culture - Preliminary Resulted 02/09/20 06:20 Nasopharynx SARS-CoV-2 RdRp Gene Assay - Final Complete 02/09/20 22:20 Stool Clostridium difficile Toxin Assay - Final Complete 02/09/20 06:20 Urine,Clean Catch Urine Culture - Preliminary Gram Negative Arthur Resulted 02/09/20 07:10 Rectum Received Laboratory Tests Test 02/09/20 16:10 02/10/20 02:30 Troponin I 0.044 ng/mL (0.000-0.056) 0.065 ng/mL (0.000-0.056) White Blood Count 8.7 K/UL (4.8-10.8) Red Blood Count 2.89 M/UL (4.20-5.40) L Hemoglobin 8.1 G/DL (12.0-16.0) L Hematocrit 26.8 % (37.0-47.0) L Mean Corpuscular Volume 93 FL (80-99) Mean Corpuscular Hemoglobin 28.2 PG (27.0-31.0) Mean Corpuscular Hemoglobin Concent 30.4 G/DL (32.0-36.0) L Red Cell Distribution Width 20.9 % (11.6-14.8) H Platelet Count 315 K/UL (150-450) Mean Platelet Volume 6.5 FL (6.5-10.1) Neutrophils (%) (Auto) % (45.0-75.0) Lymphocytes (%) (Auto) % (20.0-45.0) Monocytes (%) (Auto) % (1.0-10.0) Eosinophils (%) (Auto) % (0.0-3.0) Basophils (%) (Auto) % (0.0-2.0) Differential Total Cells Counted 100 Neutrophils % (Manual) 92 % (45-75) H Lymphocytes % (Manual) 3 % (20-45) L Monocytes % (Manual) 4 % (1-10) Eosinophils % (Manual) 0 % (0-3) Basophils % (Manual) 1 % (0-2) Band Neutrophils 0 % (0-8) Platelet Estimate Adequate Platelet Morphology Normal Hypochromasia 2+ Anisocytosis 2+ Sodium Level 136 MMOL/L (136-145) Potassium Level 4.2 MMOL/L (3.5-5.1) Chloride Level 103 MMOL/L (98-107) Carbon Dioxide Level 29 MMOL/L (21-32) Anion Gap 4 mmol/L (5-15) L Blood Urea Nitrogen 19 mg/dL (7-18) H Creatinine 0.7 MG/DL (0.55-1.30) Estimat Glomerular Filtration Rate > 60 mL/min (>60) Glucose Level 190 MG/DL (74-106) H Calcium Level 8.2 MG/DL (8.5-10.1) L Current Medications Medications (Trade) Dose Ordered Sig/Lucy Route PRN Reason Start Time Stop Time Status Last Admin Dose Admin Acetaminophen (Tylenol) 650 mg Q4H PRN GT Mild Pain (Pain Scale 1-3) 02/09/20 10:30 03/10/20 10:29 02/09/20 12:06 Al Hydroxide/Mg Hydroxide (Mylanta) 30 ml FOUR TIMES A DAY GT 02/09/20 13:00 03/10/20 12:59 02/10/20 08:28 Clonidine HCl (Catapres Tab) 0.1 mg Q4H PRN GT For High Blood Pressure 02/09/20 13:45 05/09/20 13:44 Diphenhydramine HCl (Benadryl) 25 mg Q6H PRN GT ITCHING 02/09/20 10:30 03/10/20 10:29 02/09/20 12:06 Famotidine (Pepcid) 20 mg TWICE A DAY GT 02/09/20 11:00 05/09/20 10:59 02/10/20 08:28 Heparin Sodium (Porcine) (Heparin 5000 units/ml) 5,000 units EVERY 12 HOURS SUBQ 02/09/20 21:00 03/25/20 20:59 02/10/20 08:31 Lansoprazole (Prevacid) 30 mg DAILY GT 02/10/20 09:00 03/11/20 08:59 02/10/20 08:28 Levothyroxine Sodium (Synthroid) 75 mcg DAILY GT 02/10/20 09:00 03/11/20 08:59 02/10/20 08:29 Metoprolol Tartrate (Lopressor) 12.5 mg EVERY 12 HOURS GT 02/09/20 11:15 05/09/20 11:14 02/10/20 08:29 Piperacillin Sod/ Tazobactam Sod 3.375 gm/Sodium Chloride 110 ml @ 27.5 mls/hr EVERY 8 HOURS IVPB 02/09/20 14:00 02/14/20 13:59 02/10/20 06:11 Vancomycin HCl (Vanco pharmacy to dose) 1 ea DAILY PRN MISC Per rx protocol 02/09/20 10:30 03/10/20 10:29 Vancomycin HCl 750 mg/Sodium Chloride 275 ml @ 183.333 mls/hr Q12HR@0600,1800 IVPB 02/09/20 18:00 02/14/20 17:59 02/10/20 06:11 Arnoldo West MD Feb 10, 2020 13:22
--- NOTE | 2020-02-10 13:55 | NUR ---
CASE MANAGEMENT:REVIEW SI;RESPIRATORY FAILURE. SINUS TACHYCARDIA. UTI. BACTEREMIA. 98.1 133 28 115/83 99% TRACH/VENT FIO2 @ 30% H/H 8.1/26.8 BUN 19 BG 190 TROP 0.065 IS;VANCOMYCIN IV Q12 ZOSYN IV Q8 PEPCID GT BID LOPRESSOR GT Q12 HEPARIN SUBQ Q12 PREVACID GT QD SYNTHROID GT QD JAMES STATUS DCP;FROM [facility]
--- NOTE | 2020-02-10 14:04 | NUR ---
INSURANCE CLINICALS AND REVIEW HAVE BEEN FAXED TO [place] [facility] P: [phone] F: [phone]
[2020-02-10] MEDS: DiphenhydrAMINE 25mg/10ml Elixir GT PRN (14:14)
[2020-02-10 16:00] VITALS: BP 100/73
--- NOTE | 2020-02-10 18:59 | NUR ---
NURSE HAND-OFF REPORT: Important Events on Shift: Rectal tube inserted, Cdiff Negative Patient Status: Fair Diet: Glucerna 1.2 at 60cc/hr Pending Orders: n/a Pending Results/Labs: n/a Pending MD notification: n/a Latest Vital Signs: Temperature 98.1 , Pulse 114 , B/P 100 /73 , Respiratory Rate 20 , O2 SAT 100 , Mechanical Ventilator, O2 Flow Rate 15.0 . Vital Sign Comment: EKG Rhythm: Sinus Tachycardia Rhythm change?: N MD Notified?: - MD Response: Message left await call Latest Hope Fall Score: 50 Fall Risk: High Risk Safety Measures: Call light Within Reach, Bed Alarm Zone 1, Side Rails Side Rails x3, Bed position Low and Locked. Fall Precautions: Yellow Socks Yellow Gown Patient Fall Education Report given to Shayan Winslow RN.
--- NOTE | 2020-02-10 19:10 | NUR ---
NURSE NOTES: Received pt's report from Dick RN. Pt is on bed with open eyes. Pt c/o hot room temp. A/O X 3, Pt is on vent. No s/s or respiratory distress noted. SpO2 100%, HR 120 at this moment. Informed that Pt was on sinus tachycardia since admission. Pt is on Vann, yellow urine noted. Pt's skin has small open wounds all over her body but not from the pressure. IV site intact noted, however, due to her rough skin condition, the IV with the tape are not fixed well on her skin. Call-light within reach, bed is low and locked. Will continue to monitor with plan of care.
[2020-02-10 20:00] VITALS: BP 99/67
--- NOTE | 2020-02-10 22:22 | Cardiology Progress Note ---
Subjective DATE OF SERVICE: Feb 10, 2020 On vent support Monitor: sinus tachycardia Troponin up to 0.065 Has moderate secretions from trach. Still with diarrhea Objective Last 24 Hour Vital Signs Date Time Temp Pulse Resp B/P (MAP) Pulse Ox O2 Delivery O2 Flow Rate FiO2 02/10/20 21:18 109 19 30 02/10/20 20:31 134 120/83 02/10/20 19:15 112 20 30 02/10/20 17:30 114 20 30 02/10/20 16:00 30 02/10/20 16:00 98.1 117 27 100/73 (82) 100 02/10/20 16:00 Mechanical Ventilator 02/10/20 15:30 89 02/10/20 14:49 135 31 30 02/10/20 13:14 128 29 30 02/10/20 12:00 30 02/10/20 12:00 98.1 133 21 115/83 (94) 99 02/10/20 12:00 Mechanical Ventilator 02/10/20 11:41 120 02/10/20 11:30 120 24 30 02/10/20 09:01 128 28 30 02/10/20 08:29 128 118/78 02/10/20 08:21 128 02/10/20 08:00 Mechanical Ventilator 02/10/20 08:00 97.7 125 23 118/78 (91) 100 02/10/20 08:00 30 02/10/20 07:16 131 22 30 02/10/20 05:00 125 23 30 02/10/20 04:00 97.3 128 24 113/80 (91) 100 02/10/20 04:00 Mechanical Ventilator 02/10/20 04:00 30 02/10/20 03:33 124 02/10/20 03:22 125 23 30 02/10/20 01:10 125 27 30 02/10/20 00:00 97.7 120 25 112/85 (94) 100 02/10/20 00:00 Mechanical Ventilator 02/10/20 00:00 30 02/09/20 23:35 127 02/09/20 22:57 125 19 30 ROS: unchanged from my note of 02/09/20 HEENT: Mechanically Ventilated, Thick Trach secretions RHYTHM: ST LUNGS: bilateral rhonchi CARDIAC: regular rhythm, normal S1 and S2, rapid rate, gallop/S4 ABDOMEN: normal bowel sounds, non tender, soft, no organomegaly, G-Tube intact EXTREMITIES: non-tender, no calf tenderness, No edema Laboratory Tests Test 02/10/20 02:30 02/10/20 17:20 White Blood Count 8.7 K/UL (4.8-10.8) Red Blood Count 2.89 M/UL (4.20-5.40) L Hemoglobin 8.1 G/DL (12.0-16.0) L Hematocrit 26.8 % (37.0-47.0) L Mean Corpuscular Volume 93 FL (80-99) Mean Corpuscular Hemoglobin 28.2 PG (27.0-31.0) Mean Corpuscular Hemoglobin Concent 30.4 G/DL (32.0-36.0) L Red Cell Distribution Width 20.9 % (11.6-14.8) H Platelet Count 315 K/UL (150-450) Mean Platelet Volume 6.5 FL (6.5-10.1) Neutrophils (%) (Auto) % (45.0-75.0) Lymphocytes (%) (Auto) % (20.0-45.0) Monocytes (%) (Auto) % (1.0-10.0) Eosinophils (%) (Auto) % (0.0-3.0) Basophils (%) (Auto) % (0.0-2.0) Differential Total Cells Counted 100 Neutrophils % (Manual) 92 % (45-75) H Lymphocytes % (Manual) 3 % (20-45) L Monocytes % (Manual) 4 % (1-10) Eosinophils % (Manual) 0 % (0-3) Basophils % (Manual) 1 % (0-2) Band Neutrophils 0 % (0-8) Platelet Estimate Adequate Platelet Morphology Normal Hypochromasia 2+ Anisocytosis 2+ Sodium Level 136 MMOL/L (136-145) Potassium Level 4.2 MMOL/L (3.5-5.1) Chloride Level 103 MMOL/L (98-107) Carbon Dioxide Level 29 MMOL/L (21-32) Anion Gap 4 mmol/L (5-15) L Blood Urea Nitrogen 19 mg/dL (7-18) H Creatinine 0.7 MG/DL (0.55-1.30) Estimat Glomerular Filtration Rate > 60 mL/min (>60) Glucose Level 190 MG/DL (74-106) H Calcium Level 8.2 MG/DL (8.5-10.1) L Troponin I 0.065 ng/mL (0.000-0.056) Vancomycin Level Trough 16.7 ug/mL (5.0-12.0) H Microbiology Date/Time Source Procedure Growth Status 02/09/20 06:15 Blood Blood Culture - Preliminary Resulted 02/09/20 06:00 Blood Blood Culture - Preliminary Resulted 02/09/20 06:20 Nasopharynx SARS-CoV-2 RdRp Gene Assay - Final Complete 02/09/20 22:20 Stool Clostridium difficile Toxin Assay - Final Complete 02/09/20 06:20 Urine,Clean Catch Urine Culture - Preliminary Gram Negative Arthur Resulted 02/09/20 07:10 Rectum Received CHEST XRAY: Bilateral patchy infiltrates Assessment/Plan Assessment/Plan Sepsis Diarrhea [facility] PNA Respiratory failure with trach Sinus tachycardia Acute myocardial ischemia with elevated troponin levels Hypovolemia/dehydration Moderate protein calorie malnutrition Vent support Abx Check CDiff Advance beta mingo DVT prophylaxis Check venous duplex for possible DVT Nutritional support by Luis Felipe Magdaleno MD Feb 10, 2020 22:22
[2020-02-11] VITALS: BP 102/72
[2020-02-11 04:00] VITALS: BP 111/76
--- NOTE | 2020-02-11 04:04 | NUR ---
NURSE NOTES: Ketan from Lab called in, Pt is positive for VRE @ [facility].
[2020-02-11] MEDS: Zosyn 3.375gm q8h **Extended infusion IVPB SCH ×6 (05:48→21:04)
[2020-02-11] MEDS: Vancomycin 750mg/NS 275ml IVPB SCH ×4 (05:50→17:40)
[2020-02-11 06:50] LABS: BASOPHILS % (AUTO) 1.1 % (0.0-2.0); EOSINOPHILS % (AUTO) 0.3 % (0.0-3.0); HEMATOCRIT 28.8 % (37.0-47.0); HEMOGLOBIN 8.3 G/DL (12.0-16.0); LYMPHOCYTES % (AUTO) 10.7 % (20.0-45.0); MEAN CORPUSCULAR VOLUME 96 FL (80-99); MONOCYTES % (AUTO) 4.9 % (1.0-10.0); PLATELET COUNT 358 K/UL (150-450); RED CELL DISTRIBUTION WIDTH 21.2 % (11.6-14.8); WHITE BLOOD COUNT 11.5 K/UL (4.8-10.8)
[2020-02-11 07:18] LABS: ALANINE AMINOTRANSFERASE 35 U/L (12-78); ALBUMIN 1.5 G/DL (3.4-5.0); ALBUMIN/GLOBULIN RATIO 0.2 (1.0-2.7); ALKALINE PHOSPHATASE 447 U/L (46-116); ANION GAP 7 mmol/L (5-15); ASPARTATE AMINO TRANSFERASE 61 U/L (15-37); BILIRUBIN,TOTAL 0.4 MG/DL (0.2-1.0); BLOOD UREA NITROGEN 22 mg/dL (7-18); CALCIUM 8.1 MG/DL (8.5-10.1); CARBON DIOXIDE 29 MMOL/L (21-32); CHLORIDE 106 MMOL/L (98-107); CREATININE 0.8 MG/DL (0.55-1.30); POTASSIUM 4.4 MMOL/L (3.5-5.1); SODIUM 142 MMOL/L (136-145)
--- NOTE | 2020-02-11 07:30 | NUR ---
NURSE HAND-OFF REPORT: Important Events on Shift:n/a Patient Status: stable,but sinus tachycardia. Diet: Glucerna 1.2@60mL/HR for 20hrs Pending Orders: Pending Results/Labs: Pending MD notification: Latest Vital Signs: Temperature 98.2 , Pulse 132 , B/P 111 /76 , Respiratory Rate 21 , O2 SAT 100 , Mechanical Ventilator, O2 Flow Rate 15.0 . Vital Sign Comment: Sinus tachycardia EKG Rhythm: Sinus Tachycardia Rhythm change?: N MD Notified?: - MD Response: Message left await call Latest Hope Fall Score: 50 Fall Risk: High Risk Safety Measures: Call light Within Reach, Bed Alarm Zone 1, Side Rails Side Rails x3, Bed position Low and Locked. Fall Precautions: Yellow Socks Yellow Gown Patient Fall Education Report given to MAGI Iraheta.
--- NOTE | 2020-02-11 07:30 | NUR ---
NURSE NOTES: Nurse report given by Shayan Winslow RN. Patient's sleeping in bed, but easily awaken, AO x 3, aphasic, no s.s of distress or SOB, no s/s of pain. Bed low and locked, call light within reach, dye maker rails x 3, HOB >30. Vent/trach noted, SIMV 6, Vt 550, FIO2 30%, PEEP5. IV is running fluid, no s/s of tenderness or infiltration. Vann noted, draining well, yellow color noted. Rectal tube present, loose stool noted in the bag. GT feeding, running at 60cc/hr, no residual noted. Wounds assessment performed, dressing changed. Suction and oral care provided. Will continue to monitor.
--- NOTE | 2020-02-11 07:45 | NUR ---
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 No new orders from MD.Will continue to monitor.
--- NOTE | 2020-02-11 07:56 | NUR ---
NURSE NOTES: Called and left message to Dr. Sorto and made MD aware that troponin is trending up. From : 0.042 - 0.048 - 0.065 -0.067. Awaiting for response.
[2020-02-11 08:00] VITALS: BP 127/95
--- NOTE | 2020-02-11 08:03 | General Progress Note ---
Assessment/Plan Assessment/Plan: diarrhea respiratory failure trach sinus tachycardia anemia wounds dermatitis bacteremia UTI MRSA and VRE colonized PLAN Cdif negative iv antibiotics ID noted IV hydration wound care all consultants appreciated remains ill monitor heart rate impression, plan, and exam edited and reviewed in detail care discussed with RN Subjective ROS Limited/Unobtainable: Yes Allergies: Coded Allergies: No Known Allergies (Unverified , 02/09/20) Subjective JAMES care reviewed Objective Last 24 Hour Vital Signs Date Time Temp Pulse Resp B/P (MAP) Pulse Ox O2 Delivery O2 Flow Rate FiO2 02/11/20 07:10 132 21 30 02/11/20 04:50 116 17 30 02/11/20 04:00 Mechanical Ventilator 02/11/20 04:00 30 02/11/20 04:00 98.2 118 22 111/76 (88) 100 02/11/20 03:42 119 18 30 02/11/20 03:42 127 02/11/20 01:00 119 18 30 02/11/20 00:00 Mechanical Ventilator 02/11/20 00:00 30 02/11/20 00:00 97.9 119 21 102/72 (82) 100 02/10/20 23:25 109 02/10/20 23:10 120 18 30 02/10/20 21:18 109 19 30 02/10/20 20:31 134 120/83 02/10/20 20:00 Mechanical Ventilator 02/10/20 20:00 97.9 120 24 99/67 (78) 100 02/10/20 20:00 30 02/10/20 19:22 118 02/10/20 19:15 112 20 30 02/10/20 17:30 114 20 30 02/10/20 16:00 30 02/10/20 16:00 98.1 117 27 100/73 (82) 100 02/10/20 16:00 Mechanical Ventilator 02/10/20 15:30 89 02/10/20 14:49 135 31 30 02/10/20 13:14 128 29 30 02/10/20 12:00 30 02/10/20 12:00 98.1 133 21 115/83 (94) 99 02/10/20 12:00 Mechanical Ventilator 02/10/20 11:41 120 02/10/20 11:30 120 24 30 02/10/20 09:01 128 28 30 02/10/20 08:29 128 118/78 02/10/20 08:21 128 Intake and Output 02/10/20 02/11/20 19:00 07:00 Intake Total 990.833 ml 180 ml Output Total 250 ml Balance 740.833 ml 180 ml Intake Free Water 350 ml IV Total 220.833 ml Tube Feeding 420 ml 180 ml Output Urine Total 250 ml # Bowel Movements 4 Laboratory Tests 02/10/20 17:20: Vancomycin Level Trough 16.7H 02/11/20 05:00: White Blood Count 11.5H, Red Blood Count 3.00L, Hemoglobin 8.3L, Hematocrit 28.8L, Mean Corpuscular Volume 96, Mean Corpuscular Hemoglobin 27.8, Mean Corpuscular Hemoglobin Concent 29.0L, Red Cell Distribution Width 21.2H, Platelet Count 358, Mean Platelet Volume 6.0L, Neutrophils (%) (Auto) 83.0H, Lymphocytes (%) (Auto) 10.7L, Monocytes (%) (Auto) 4.9, Eosinophils (%) (Auto) 0.3, Basophils (%) (Auto) 1.1, Sodium Level 142, Potassium Level 4.4, Chloride Level 106, Carbon Dioxide Level 29, Anion Gap 7, Blood Urea Nitrogen 22H, Creatinine 0.8, Estimat Glomerular Filtration Rate > 60, Glucose Level 224H, Calcium Level 8.1L, Magnesium Level 2.3, Total Bilirubin 0.4, Aspartate Amino Transf (AST/SGOT) 61H, Alanine Aminotransferase (ALT/SGPT) 35, Alkaline Phosphatase 447H, Troponin I 0.067H, Total Protein 8.8H, Albumin 1.5L, Globulin 7.3, Albumin/Globulin Ratio 0.2L Height (Feet): 5 Height (Inches): 3.00 Weight (Pounds): 130 Objective WDWN NAD trach clear breath sounds bilaterally without rhonchi or wheeze [id number] without MRG NABS nontender GT no CCE nonfocal chronic rash Stevenson Medina MD Feb 11, 2020 08:03
[2020-02-11] MEDS: Levothyroxine 25mcg tab GT SCH (08:54)
[2020-02-11] MEDS: Heparin 5000 units/ml inj SUBQ SCH ×2 (08:56→20:12)
--- NOTE | 2020-02-11 10:05 | NUR ---
RD ASSESSMENT & RECOMMENDATIONS SEE CARE ACTIVITY FOR COMPLETE ASSESSMENT DAILY ESTIMATED NEEDS: Needs based on Wound, critical care 52.3kg abw 25-30 kcals/kg 8008-7320 total kcals 1.25-2 g protein/kg 65-105 g total protein 25-30 mL/kg 0558-8520 total fluid mLs NUTRITION DIAGNOSIS: Increased kcal and pro needs r/t wound healing as evidenced by pt w/multiple full thickness wounds, refer to wound care eval, pt is bedbound trach and peg dep. CURRENT TF: Glucerna 1.2 @60ml/hr x20 hrs ENTERAL NUTRITION RECOMMENDATIONS: Maintain Glucerna 1.2 w/ goal of 60ml/hr x20 hrs to provide 1200ml, 1440 kcal, 72g pro, 966ml free H2O - Maintain current TF rate to meet 100% est needs - Rec added PROSOURCE 1 pack daily (11g pro) to better meet est pro needs - Flush per MD. HOB over 30 degrees ADDITIONAL RECOMMENDATIONS: 1) Wound care: add GT BID + Vit C 250mg BID 2) Per SNF: 61 inches (5'1") and last wt 145 lbs/65.91kg Maintain calibrated bed scale wts w/ added P200 mattress 3) Rec NISS + accuchecks for improved BG
--- NOTE | 2020-02-11 11:00 | NUR ---
NURSE NOTES: Spoke with Dr. Sorto in person and made MD aware of the troponin trending up. MD aware, no new orders.
--- NOTE | 2020-02-11 11:19 | Infectious Diseases Prog Note ---
"Assessment/Plan Assessment/Plan antibiotics : vancomycin iv, zosyn A 1. pneumonia COVID 19 negative 2. proteus | gram negative UTI 3. gram positive sepsis 4. breast cancer 5. respiratory failure P 1. continue iv vancomycin, zosyn 2. will follow up cultures Subjective ROS Limited/Unobtainable: Yes Allergies: Coded Allergies: No Known Allergies (Unverified , 02/09/20) Objective Last 24 Hour Vital Signs Date Time Temp Pulse Resp B/P (MAP) Pulse Ox O2 Delivery O2 Flow Rate FiO2 02/11/20 11:01 113 21 30 02/11/20 08:55 117 127/95 02/11/20 08:44 117 20 30 02/11/20 08:00 Mechanical Ventilator 02/11/20 08:00 97.9 123 21 127/95 (106) 100 02/11/20 08:00 30 02/11/20 08:00 131 02/11/20 07:10 132 21 30 02/11/20 04:50 116 17 30 02/11/20 04:00 Mechanical Ventilator 02/11/20 04:00 30 02/11/20 04:00 98.2 118 22 111/76 (88) 100 02/11/20 03:42 119 18 30 02/11/20 03:42 127 02/11/20 01:00 119 18 30 02/11/20 00:00 Mechanical Ventilator 02/11/20 00:00 30 02/11/20 00:00 97.9 119 21 102/72 (82) 100 02/10/20 23:25 109 02/10/20 23:10 120 18 30 02/10/20 21:18 109 19 30 02/10/20 20:31 134 120/83 02/10/20 20:00 Mechanical Ventilator 02/10/20 20:00 97.9 120 24 99/67 (78) 100 02/10/20 20:00 30 02/10/20 19:22 118 02/10/20 19:15 112 20 30 02/10/20 17:30 114 20 30 02/10/20 16:00 30 02/10/20 16:00 98.1 117 27 100/73 (82) 100 02/10/20 16:00 Mechanical Ventilator 02/10/20 15:30 89 02/10/20 14:49 135 31 30 02/10/20 13:14 128 29 30 02/10/20 12:00 30 02/10/20 12:00 98.1 133 21 115/83 (94) 99 02/10/20 12:00 Mechanical Ventilator 02/10/20 11:41 120 02/10/20 11:30 120 24 30 Height (Feet): 5 Height (Inches): 3.00 Weight (Pounds): 130 HEENT: status post trach Respiratory/Chest: lungs clear Cardiovascular: normal rate, regular rhythm, no gallop/murmur Abdomen: soft, non tender, other - GT Extremities: no edema Microbiology Date/Time Source Procedure Growth Status 02/09/20 06:15 Blood Blood Culture - Preliminary Gram Positive Cocci Resulted 02/09/20 06:00 Blood Blood Culture - Preliminary Resulted 02/09/20 18:00 Sputum Gram Stain - Final Resulted 02/09/20 18:00 Sputum Sputum Culture Pending Resulted 02/09/20 07:10 Nasal Nares MRSA Culture - Final Staphylococcus Aureus - Mrsa Complete 02/09/20 06:20 Nasopharynx SARS-CoV-2 RdRp Gene Assay - Final Complete 02/09/20 22:20 Stool Clostridium difficile Toxin Assay - Final Complete 02/09/20 06:20 Urine,Clean Catch Urine Culture - Preliminary Gram Negative Arthur Proteus Mirabilis Resulted 02/09/20 07:10 Rectum VRE Culture - Final Enterococcus Faecium - Vre Complete Laboratory Tests Test 02/10/20 17:20 02/11/20 05:00 Vancomycin Level Trough 16.7 ug/mL (5.0-12.0) H White Blood Count 11.5 K/UL (4.8-10.8) H Red Blood Count 3.00 M/UL (4.20-5.40) L Hemoglobin 8.3 G/DL (12.0-16.0) L Hematocrit 28.8 % (37.0-47.0) L Mean Corpuscular Volume 96 FL (80-99) Mean Corpuscular Hemoglobin 27.8 PG (27.0-31.0) Mean Corpuscular Hemoglobin Concent 29.0 G/DL (32.0-36.0) L Red Cell Distribution Width 21.2 % (11.6-14.8) H Platelet Count 358 K/UL (150-450) Mean Platelet Volume 6.0 FL (6.5-10.1) L Neutrophils (%) (Auto) 83.0 % (45.0-75.0) H Lymphocytes (%) (Auto) 10.7 % (20.0-45.0) L Monocytes (%) (Auto) 4.9 % (1.0-10.0) Eosinophils (%) (Auto) 0.3 % (0.0-3.0) Basophils (%) (Auto) 1.1 % (0.0-2.0) Sodium Level 142 MMOL/L (136-145) Potassium Level 4.4 MMOL/L (3.5-5.1) Chloride Level 106 MMOL/L (98-107) Carbon Dioxide Level 29 MMOL/L (21-32) Anion Gap 7 mmol/L (5-15) Blood Urea Nitrogen 22 mg/dL (7-18) H Creatinine 0.8 MG/DL (0.55-1.30) Estimat Glomerular Filtration Rate > 60 mL/min (>60) Glucose Level 224 MG/DL (74-106) H Calcium Level 8.1 MG/DL (8.5-10.1) L Magnesium Level 2.3 MG/DL (1.8-2.4) Total Bilirubin 0.4 MG/DL (0.2-1.0) Aspartate Amino Transf (AST/SGOT) 61 U/L (15-37) H Alanine Aminotransferase (ALT/SGPT) 35 U/L (12-78) Alkaline Phosphatase 447 U/L (46-116) H Troponin I 0.067 ng/mL (0.000-0.056) Total Protein 8.8 G/DL (6.4-8.2) H Albumin 1.5 G/DL (3.4-5.0) L Globulin 7.3 g/dL Albumin/Globulin Ratio 0.2 (1.0-2.7) L Current Medications Medications (Trade) Dose Ordered Sig/Lucy Route PRN Reason Start Time Stop Time Status Last Admin Dose Admin Acetaminophen (Tylenol) 650 mg Q4H PRN GT Mild Pain (Pain Scale 1-3) 02/09/20 10:30 03/10/20 10:29 02/09/20 12:06 Al Hydroxide/Mg Hydroxide (Mylanta) 30 ml FOUR TIMES A DAY GT 02/09/20 13:00 03/10/20 12:59 02/11/20 08:54 Clonidine HCl (Catapres Tab) 0.1 mg Q4H PRN GT For High Blood Pressure 02/09/20 13:45 05/09/20 13:44 Diphenhydramine HCl (Benadryl) 25 mg Q6H PRN GT ITCHING 02/09/20 10:30 03/10/20 10:29 02/10/20 14:14 Famotidine (Pepcid) 20 mg TWICE A DAY GT 02/09/20 11:00 05/09/20 10:59 02/11/20 08:54 Heparin Sodium (Porcine) (Heparin 5000 units/ml) 5,000 units EVERY 12 HOURS SUBQ 02/09/20 21:00 03/25/20 20:59 02/11/20 08:56 Lansoprazole (Prevacid) 30 mg DAILY GT 02/10/20 09:00 03/11/20 08:59 02/11/20 08:54 Levothyroxine Sodium (Synthroid) 75 mcg DAILY GT 02/10/20 09:00 03/11/20 08:59 02/11/20 08:54 Metoprolol Tartrate (Lopressor) 25 mg EVERY 12 HOURS GT 02/11/20 09:00 05/11/20 08:59 02/11/20 08:55 Piperacillin Sod/ Tazobactam Sod 3.375 gm/Sodium Chloride 110 ml @ 27.5 mls/hr EVERY 8 HOURS IVPB 02/09/20 14:00 02/14/20 13:59 02/11/20 05:48 Vancomycin HCl (Vanco pharmacy to dose) 1 ea DAILY PRN MISC Per rx protocol 02/09/20 10:30 03/10/20 10:29 Vancomycin HCl 750 mg/Sodium Chloride 275 ml @ 183.333 mls/hr Q12HR@0600,1800 IVPB 02/09/20 18:00 02/14/20 17:59 02/11/20 05:50 Hong Camacho MD Feb 11, 2020 11:19"
[2020-02-11 12:00] VITALS: BP 117/89
[2020-02-11] MEDS: DiphenhydrAMINE 25mg/10ml Elixir GT PRN (13:46)
--- NOTE | 2020-02-11 14:00 | History and Physical Report ---
DATE OF ADMISSION: 02/09/2020 REASON FOR ADMISSION: Dyspnea. HISTORY OF PRESENT ILLNESS: This is a 54-year-old chronically ill patient with history of breast cancer status post chemotherapy and multiple other medical problems. The patient apparently was having chest pain at the nursing facility. The patient was seen and evaluated. She had some leukocytosis. Troponin was 0.042. The patient does have an elevated C-reactive protein. The patient's swab negative for COVID. The patient now admitted for further care and management and further evaluation. PAST MEDICAL HISTORY: Notable for chronic respiratory failure, chronic dermatitis, history of breast cancer, history of anemia, history of tracheostomy, and history of G-tube. MEDICATIONS: Reviewed. ALLERGIES: Reviewed. REVIEW OF SYSTEMS: Difficult to obtain. PHYSICAL EXAMINATION: GENERAL: A well-developed female, chronically ill-appearing. VITAL SIGNS: Notable for heart rate of 117 to 140, blood pressure noted the patient is saturating adequately. LUNGS: With scattered rhonchi. CARDIAC: Tachycardic. ABDOMEN: Soft. G-tube in place. EXTREMITIES: No cyanosis, clubbing, or edema. LABORATORY DATA: Reviewed. Notable for an albumin of 1.7. Sodium 131. White count 13.3, hemoglobin 9.1, platelets noted IMPRESSION: 1. Tachyarrhythmia. 2. Leukocytosis. 3. Possible sepsis. 4. Anemia. 5. Chronic respiratory failure. 6. Hyponatremia. 7. Severe protein-calorie malnutrition. 8. Elevated C-reactive protein, possibly suggestive of underlying infection. RECOMMENDATION: Resume residential medications. Empiric antibiotics. ID evaluation. Cardiology evaluation. Ventilatory support. Resume residential medications, DVT prophylaxis, and discharge once cleared and stable. Stevenson Medina M.D. DR: HILL JOB#: [id number] CC: MIRNA
--- NOTE | 2020-02-11 14:25 | Surgery Progress Note ---
Surgery Progress Note Subjective Additional Comments no acute events comfortable stable Objective Last 24 Hour Vital Signs Date Time Temp Pulse Resp B/P (MAP) Pulse Ox O2 Delivery O2 Flow Rate FiO2 02/11/20 13:37 109 21 30 02/11/20 12:00 98.9 124 21 117/89 (98) 99 02/11/20 12:00 30 02/11/20 12:00 Mechanical Ventilator 02/11/20 12:00 118 02/11/20 11:01 113 21 30 02/11/20 08:55 117 127/95 02/11/20 08:44 117 20 30 02/11/20 08:00 Mechanical Ventilator 02/11/20 08:00 97.9 123 21 127/95 (106) 100 02/11/20 08:00 30 02/11/20 08:00 131 02/11/20 07:10 132 21 30 02/11/20 04:50 116 17 30 02/11/20 04:00 Mechanical Ventilator 02/11/20 04:00 30 02/11/20 04:00 98.2 118 22 111/76 (88) 100 02/11/20 03:42 119 18 30 02/11/20 03:42 127 02/11/20 01:00 119 18 30 02/11/20 00:00 Mechanical Ventilator 02/11/20 00:00 30 02/11/20 00:00 97.9 119 21 102/72 (82) 100 02/10/20 23:25 109 02/10/20 23:10 120 18 30 02/10/20 21:18 109 19 30 02/10/20 20:31 134 120/83 02/10/20 20:00 Mechanical Ventilator 02/10/20 20:00 97.9 120 24 99/67 (78) 100 02/10/20 20:00 30 02/10/20 19:22 118 02/10/20 19:15 112 20 30 02/10/20 17:30 114 20 30 02/10/20 16:00 30 02/10/20 16:00 98.1 117 27 100/73 (82) 100 02/10/20 16:00 Mechanical Ventilator 02/10/20 15:30 89 02/10/20 14:49 135 31 30 I&O Intake and Output 02/10/20 02/11/20 19:00 07:00 Intake Total 990.833 ml 780 ml Output Total 250 ml 350 ml Balance 740.833 ml 430 ml Intake Free Water 350 ml IV Total 220.833 ml Tube Feeding 420 ml 780 ml Output Urine Total 250 ml 350 ml # Bowel Movements 4 100 Dressing: saturated Wound: clean Cardiovascular: RSR Respiratory: clear, decreased breath sounds Abdomen: soft, non-tender, present bowel sounds Extremities: no edema, no tenderness, no cyanosis, pulses, other Laboratory Tests Test 02/10/20 17:20 02/11/20 05:00 Vancomycin Level Trough 16.7 ug/mL (5.0-12.0) H White Blood Count 11.5 K/UL (4.8-10.8) H Red Blood Count 3.00 M/UL (4.20-5.40) L Hemoglobin 8.3 G/DL (12.0-16.0) L Hematocrit 28.8 % (37.0-47.0) L Mean Corpuscular Volume 96 FL (80-99) Mean Corpuscular Hemoglobin 27.8 PG (27.0-31.0) Mean Corpuscular Hemoglobin Concent 29.0 G/DL (32.0-36.0) L Red Cell Distribution Width 21.2 % (11.6-14.8) H Platelet Count 358 K/UL (150-450) Mean Platelet Volume 6.0 FL (6.5-10.1) L Neutrophils (%) (Auto) 83.0 % (45.0-75.0) H Lymphocytes (%) (Auto) 10.7 % (20.0-45.0) L Monocytes (%) (Auto) 4.9 % (1.0-10.0) Eosinophils (%) (Auto) 0.3 % (0.0-3.0) Basophils (%) (Auto) 1.1 % (0.0-2.0) Sodium Level 142 MMOL/L (136-145) Potassium Level 4.4 MMOL/L (3.5-5.1) Chloride Level 106 MMOL/L (98-107) Carbon Dioxide Level 29 MMOL/L (21-32) Anion Gap 7 mmol/L (5-15) Blood Urea Nitrogen 22 mg/dL (7-18) H Creatinine 0.8 MG/DL (0.55-1.30) Estimat Glomerular Filtration Rate > 60 mL/min (>60) Glucose Level 224 MG/DL (74-106) H Calcium Level 8.1 MG/DL (8.5-10.1) L Magnesium Level 2.3 MG/DL (1.8-2.4) Total Bilirubin 0.4 MG/DL (0.2-1.0) Aspartate Amino Transf (AST/SGOT) 61 U/L (15-37) H Alanine Aminotransferase (ALT/SGPT) 35 U/L (12-78) Alkaline Phosphatase 447 U/L (46-116) H Troponin I 0.067 ng/mL (0.000-0.056) Total Protein 8.8 G/DL (6.4-8.2) H Albumin 1.5 G/DL (3.4-5.0) L Globulin 7.3 g/dL Albumin/Globulin Ratio 0.2 (1.0-2.7) L Plan Problems: (1) Sepsis Assessment & Plan: Leukocytosis, anemia, lactic acidosis sepsis uro uti likely wounds noted and stable unlikely etiology nutritional optimization tf as tolerated vent support cxr noted DAILY ESTIMATED NEEDS: Needs based on Wound, critical care 52.3kg abw 25-30 kcals/kg 0278-5526 total kcals 1.25-2 g protein/kg 65-105 g total protein 25-30 mL/kg 6673-3439 total fluid mLs NUTRITION DIAGNOSIS: Increased kcal and pro needs r/t wound healing as evidenced by pt w/multiple full thickness wounds, refer to wound care eval, pt is bedbound trach and peg dep. CURRENT TF: Glucerna 1.2 @60ml/hr x20 hrs ENTERAL NUTRITION RECOMMENDATIONS: Maintain Glucerna 1.2 w/ goal of 60ml/hr x20 hrs to provide 1200ml, 1440 kcal, 72g pro, 966ml free H2O - Maintain current TF rate to meet 100% est needs - Rec added PROSOURCE 1 pack daily (11g pro) to better meet est pro needs - Flush per MD. HOB over 30 degrees ADDITIONAL RECOMMENDATIONS: 1) Wound care: add GT BID + Vit C 250mg BID 2) Per SNF: 61 inches (5'1") and last wt 145 lbs/65.91kg Maintain calibrated bed scale wts w/ added P200 mattress 3) Rec NISS + accuchecks for improved BG (2) UTI (urinary tract infection) (3) Pneumonia (4) Decubitus skin ulcer Assessment & Plan: Pt presented on admission with Pressure Injuries, Tracheostomy,Alopecia, Generalized Hypopigmented Skin plaques. Few plaques noted to be open lesions but are pink and dry. Skin assessed under collar of trach and no areas of skin breakdown noted. Full thickness Pressure injury noted to R Buttocks(L)5.7cm x (W)1.7cm x (D) 0.3cm. Base of wound is 90% beefy-red,10% slough. Borders are macerated . surrounding dry skin with hypopigmented plaques. Full thickness Pressure injury L Buttocks(L)4.6cm x (W)4.5cm. Base of wound has clusters wounds with intertwining bridges. Wounds have mixed slough and jack appearances. Small amt serous exudate noted. Surrounding dry hypopigmented skin plaques. Proximally and in close proximity skin is denuded. Small pustule with surrounding erythema noted L Hallux(L)0.5cm x (W)0.6cm. NO changes in skin temp periwound. An area of hyperpigmentation from previous wound noted to medial/posterior R Heel. L Heel is otherwise boggy with non-blanching erythema. Reabsorbed DTPI L Heel(L)2.2cm x (W)2cm. Dry brown eschar at base of wound. NO erythema or fluctuance periwound. Unstageable Pressure injury L lateral Malleolus(L)0.7cm x (W)0.9cm. Base of wound has 100% slough.edges dry and adherent to base of wound. No erythema, induration,or fluctuance periwound. Tx.Plan: Cleanse wounds R and L Buttocks with Saline. Apply Therahoney to wounds. Apply Moisture Barrier Paste Periwound. Cover with Optifoam drsg Daily and prn. Apply Betadine to wound R Hallux. Cover with Optifoam drsg every 3 days and prn. Apply Betadine to L lateral Malleolus. Cover with Optifoam drsg. Change every 3 days and prn. Apply Cavilon Skin Barrier to both heels. Cover each heel with Optifoam drsg. Change every 7 days and prn. Reposition at least every 2hours or as tolerated. Off-load heels with pillow. APM/ELIDIA Mattress overlay. Zia Chung Feb 11, 2020 14:25
[2020-02-11] MEDS ORDERED: FERROUS SU220 MG/51 GT (14:34)
[2020-02-11] MEDS ORDERED: ACETAMINOP160 MG/5 M ORAL (14:34)
[2020-02-11] MEDS ORDERED: LEVOTHYROXINE75 MCG ORAL (14:36)
[2020-02-11] MEDS ORDERED: NORCO 5-325 TA1 EAC1 GT (14:38)
[2020-02-11] MEDS ORDERED: VITAMIN C500 M1 GT (14:40)
[2020-02-11] MEDS ORDERED: UTI-STAT L3875 MG/31 PO (14:41)
--- NOTE | 2020-02-11 15:34 | Diagnostic Imaging Report ---
Indication: Bilateral lower extremity pain and edema Technique: Grayscale and duplex images of the bilateral lower extremity veins Comparison: None Findings: Bilaterally, grayscale and duplex images demonstrate no evidence of intraluminal thrombus. Normal phasic Doppler waveforms, demonstrating normal augmentation response and no evidence of valvular insufficiency. Greater saphenous vein(s) and tibial veins are patent. Normal compressibility. Impression: Negative for evidence of lower extremity deep venous thrombosis bilaterally
[2020-02-11 16:00] VITALS: BP 116/69
--- NOTE | 2020-02-11 16:20 | NUR ---
CASE MANAGEMENT: REVIEW SI: TACHYARRHYTHMIA . ELEVATED TROPONIN I . UTI . PNA T 97.9 HR 132 RR 22 BP 111/76 SAT 100% MECH VENT FIO2 30 WBC 11.5 H/H 8.3/28.8 TROP I 0.067 IS: ZOSYN IV Q8HR VANCOMYCIN IV Q12HR LOPRESSOR GT Q12HR STEP DOWN UNIT STATUS DCP: PATIENT IS FROM [facility] Addendum: 02/11/20 at 1628 by KRYSTINA FAN CM VENOUS DUPLEX OF BLE TODAY
--- NOTE | 2020-02-11 16:29 | NUR ---
INSURANCE CLINICALS AND REVIEW HAVE BEEN FAXED TO [place] [employer] P: [phone] F: [phone]
[2020-02-11] MEDS: Ascorbic Acid 500mg tab ORAL SCH (17:40)
[2020-02-11] MEDS ORDERED: NS 275ml ONE (17:56)
--- NOTE | 2020-02-11 19:15 | NUR ---
NURSE HAND-OFF REPORT: Important Events on Shift: N/A Patient Status: FAIR Diet: GT GLUCERNA 1.2 At 60cc/hr Pending Orders: n/a Pending Results/Labs:n/a Pending MD notification:n/a Latest Vital Signs: Temperature 98.9 , Pulse 115 , B/P 116 /69 , Respiratory Rate 23 , O2 SAT 100 , Mechanical Ventilator, O2 Flow Rate 15.0 . Vital Sign Comment: EKG Rhythm: Sinus Tachycardia Rhythm change?: N MD Notified?: - MD Response: Message left await call Latest Hope Fall Score: 50 Fall Risk: High Risk Safety Measures: Call light Within Reach, Bed Alarm Zone 1, Side Rails Side Rails x3, Bed position Low and Locked. Fall Precautions: Yellow Socks Yellow Gown Patient Fall Education Report given to Shayan Winslow RN.
--- NOTE | 2020-02-11 19:17 | NUR ---
NURSE NOTES: Received patient's report from MAGI Iraheta. Pt is on bed and asleep. Pt is on vent. No s/s or respiratory distress noted. SpO2 100%, RR 22, HR 122 at this moment. Pt is on Vann, yellow urine noted. Pt is on rectal tube, yellow and brown stool noted. Pt's skin has small open wounds all over her body but not from the pressure. IV site intact noted. Call-light within reach, bed is low and locked. Will continue to monitor with plan of care.
--- NOTE | 2020-02-11 19:23 | NUR ---
RESPIRATORY NOTE: Received pt on VOLUME SIMV 6, 550VT, PS 8, 30%, PEEP +5. Pt is trach-dependent w/ a cuffed, Shiley 8 tube. Pt alert/awake, follows commands. B/S elina. rhonchi, sxn small amounts of thick, pinkish to mercado-yellow secretions. Vent plugged into red outlet, ambubag at bedside. Pt in no apparent distress at this time. Will continue plan of care.
[2020-02-11 20:00] VITALS: BP 109/75
[2020-02-12] VITALS: BP 108/78
--- NOTE | 2020-02-12 03:04 | Cardiology Progress Note ---
Subjective DATE OF SERVICE: Feb 11, 2020 On vent support Monitor: sinus tachycardia Troponin still elevated Has moderate secretions from trach. Still with diarrhea - CDiff toxin negative Venous Duplex negative for DVT Objective Last 24 Hour Vital Signs Date Time Temp Pulse Resp B/P (MAP) Pulse Ox O2 Delivery O2 Flow Rate FiO2 02/12/20 01:16 114 23 30 02/12/20 00:00 Mechanical Ventilator 02/12/20 00:00 98.6 114 20 108/78 (88) 100 02/11/20 23:32 121 02/11/20 23:04 121 25 30 02/11/20 20:55 138 23 30 02/11/20 20:26 123 117/84 02/11/20 20:00 Mechanical Ventilator 02/11/20 20:00 98.6 117 23 109/75 (86) 100 02/11/20 20:00 30 02/11/20 19:21 122 24 30 02/11/20 19:03 137 02/11/20 16:57 115 23 30 02/11/20 16:00 98.9 122 23 116/69 (85) 100 02/11/20 16:00 Mechanical Ventilator 02/11/20 16:00 30 02/11/20 16:00 119 02/11/20 15:47 118 22 30 02/11/20 13:37 109 21 30 02/11/20 12:00 98.9 124 21 117/89 (98) 99 02/11/20 12:00 30 02/11/20 12:00 Mechanical Ventilator 02/11/20 12:00 118 02/11/20 11:01 113 21 30 02/11/20 08:55 117 127/95 02/11/20 08:44 117 20 30 02/11/20 08:00 Mechanical Ventilator 02/11/20 08:00 97.9 123 21 127/95 (106) 100 02/11/20 08:00 30 02/11/20 08:00 131 02/11/20 07:10 132 21 30 02/11/20 04:50 116 17 30 02/11/20 04:00 Mechanical Ventilator 02/11/20 04:00 30 02/11/20 04:00 98.2 118 22 111/76 (88) 100 02/11/20 03:42 119 18 30 02/11/20 03:42 127 ROS: unchanged from my note of 02/09/20 HEENT: Mechanically Ventilated, Thick Trach secretions RHYTHM: ST LUNGS: bilateral rhonchi CARDIAC: regular rhythm, normal S1 and S2, rapid rate, gallop/S4 ABDOMEN: normal bowel sounds, non tender, soft, no organomegaly, G-Tube intact EXTREMITIES: non-tender, no calf tenderness, No edema Laboratory Tests Test 02/11/20 05:00 White Blood Count 11.5 K/UL (4.8-10.8) H Red Blood Count 3.00 M/UL (4.20-5.40) L Hemoglobin 8.3 G/DL (12.0-16.0) L Hematocrit 28.8 % (37.0-47.0) L Mean Corpuscular Volume 96 FL (80-99) Mean Corpuscular Hemoglobin 27.8 PG (27.0-31.0) Mean Corpuscular Hemoglobin Concent 29.0 G/DL (32.0-36.0) L Red Cell Distribution Width 21.2 % (11.6-14.8) H Platelet Count 358 K/UL (150-450) Mean Platelet Volume 6.0 FL (6.5-10.1) L Neutrophils (%) (Auto) 83.0 % (45.0-75.0) H Lymphocytes (%) (Auto) 10.7 % (20.0-45.0) L Monocytes (%) (Auto) 4.9 % (1.0-10.0) Eosinophils (%) (Auto) 0.3 % (0.0-3.0) Basophils (%) (Auto) 1.1 % (0.0-2.0) Sodium Level 142 MMOL/L (136-145) Potassium Level 4.4 MMOL/L (3.5-5.1) Chloride Level 106 MMOL/L (98-107) Carbon Dioxide Level 29 MMOL/L (21-32) Anion Gap 7 mmol/L (5-15) Blood Urea Nitrogen 22 mg/dL (7-18) H Creatinine 0.8 MG/DL (0.55-1.30) Estimat Glomerular Filtration Rate > 60 mL/min (>60) Glucose Level 224 MG/DL (74-106) H Calcium Level 8.1 MG/DL (8.5-10.1) L Magnesium Level 2.3 MG/DL (1.8-2.4) Total Bilirubin 0.4 MG/DL (0.2-1.0) Aspartate Amino Transf (AST/SGOT) 61 U/L (15-37) H Alanine Aminotransferase (ALT/SGPT) 35 U/L (12-78) Alkaline Phosphatase 447 U/L (46-116) H Troponin I 0.067 ng/mL (0.000-0.056) Total Protein 8.8 G/DL (6.4-8.2) H Albumin 1.5 G/DL (3.4-5.0) L Globulin 7.3 g/dL Albumin/Globulin Ratio 0.2 (1.0-2.7) L Microbiology Date/Time Source Procedure Growth Status 02/09/20 06:15 Blood Blood Culture - Preliminary Gram Positive Cocci Resulted 02/09/20 06:00 Blood Blood Culture - Preliminary Resulted 02/09/20 18:00 Sputum Gram Stain - Final Resulted 02/09/20 18:00 Sputum Sputum Culture Pending Resulted 02/09/20 07:10 Nasal Nares MRSA Culture - Final Staphylococcus Aureus - Mrsa Complete 02/09/20 06:20 Nasopharynx SARS-CoV-2 RdRp Gene Assay - Final Complete 02/09/20 22:20 Stool Clostridium difficile Toxin Assay - Final Complete 02/09/20 06:20 Urine,Clean Catch Urine Culture - Preliminary Gram Negative Arthur Proteus Mirabilis Resulted 02/09/20 07:10 Rectum VRE Culture - Final Enterococcus Faecium - Vre Complete Assessment/Plan Assessment/Plan Sepsis Diarrhea with negative CDiff [facility] PNA Respiratory failure with trach Sinus tachycardia Acute myocardial ischemia with elevated troponin levels Hypovolemia/dehydration Moderate protein calorie malnutrition Vent support Abx Advancing beta mingo DVT prophylaxis Nutritional support by Luis Felipe Magdaleno MD Feb 12, 2020 03:04
[2020-02-12 04:00] VITALS: BP 117/85
[2020-02-12] MEDS: Zosyn 3.375gm q8h **Extended infusion IVPB SCH ×6 (05:15→21:15)
[2020-02-12] MEDS: Vancomycin 750mg/NS 275ml IVPB SCH ×4 (05:16→17:26)
[2020-02-12 06:13] LABS: BASOPHILS % (AUTO) 1.7 % (0.0-2.0); EOSINOPHILS % (AUTO) 0.3 % (0.0-3.0); HEMATOCRIT 30.4 % (37.0-47.0); LYMPHOCYTES % (AUTO) 12.7 % (20.0-45.0); MEAN CORPUSCULAR VOLUME 96 FL (80-99); MONOCYTES % (AUTO) 6.7 % (1.0-10.0); NEUTROPHILS % (AUTO) 78.6 % (45.0-75.0); PLATELET COUNT 374 K/UL (150-450); RED BLOOD COUNT 3.16 M/UL (4.20-5.40); RED CELL DISTRIBUTION WIDTH 21.4 % (11.6-14.8); WHITE BLOOD COUNT 10.1 K/UL (4.8-10.8)
[2020-02-12 06:49] LABS: ALANINE AMINOTRANSFERASE 29 U/L (12-78); ALBUMIN 1.5 G/DL (3.4-5.0); ALBUMIN/GLOBULIN RATIO 0.2 (1.0-2.7); ALKALINE PHOSPHATASE 460 U/L (46-116); ANION GAP 8 mmol/L (5-15); ASPARTATE AMINO TRANSFERASE 59 U/L (15-37); BILIRUBIN,TOTAL 0.4 MG/DL (0.2-1.0); BLOOD UREA NITROGEN 22 mg/dL (7-18); CARBON DIOXIDE 29 MMOL/L (21-32); CHLORIDE 107 MMOL/L (98-107); CREATININE 0.7 MG/DL (0.55-1.30); POTASSIUM 4.4 MMOL/L (3.5-5.1); SODIUM 144 MMOL/L (136-145)
--- NOTE | 2020-02-12 07:06 | NUR ---
NURSE HAND-OFF REPORT: Important Events on Shift: Sinus tachycardia Patient Status: Except, HR, Pt is stable, Pt keep asking water in her mouth. Diet: Glucerna 1.2 @ 60mL/HR Pending Orders: Pending Results/Labs: Routine Lab Pending MD notification:n Latest Vital Signs: Temperature 98.5 , Pulse 122 , B/P 117 /85 , Respiratory Rate 22 , O2 SAT 99 , Mechanical Ventilator, O2 Flow Rate 15.0 . Vital Sign Comment: Except HR and RR, VS stable EKG Rhythm: Sinus Tachycardia Rhythm change?: N MD Notified?: - MD Response: Message left await call Latest Hope Fall Score: 50 Fall Risk: High Risk Safety Measures: Call light Within Reach, Bed Alarm Zone 1, Side Rails Side Rails x3, Bed position Low and Locked. Fall Precautions: Yellow Socks Yellow Gown Patient Fall Education Report given to MAGI Bernard.
--- NOTE | 2020-02-12 07:10 | NUR ---
NURSE NOTES: Received report from Brii Bailey RN.
--- NOTE | 2020-02-12 07:55 | NUR ---
NURSE NOTES: Pt. in bed, sleeping but easy arousable. Pt. on SIMV at 6L/VT550/Fi O2 at 30%/P5. No grimacing noted. HOB elevated at all times. On GTF Glucerna 1.2 at 60cc/hr. Tolerating well. F/C in placed patent/intact draining yellow with little sediments noted. Rectal tube in placed draining yellow colored liquid stool. Pt. (+) at ESBL urine. IV line at right AC #22g. and left hand #22g. in placed. Bed in low position, locked. Call light within reach. Will cont. to monitor.
[2020-02-12 08:00] VITALS: BP 117/86
[2020-02-12] MEDS: Ascorbic Acid 500mg tab ORAL SCH ×2 (09:06→17:25)
--- NOTE | 2020-02-12 09:06 | General Progress Note ---
Assessment/Plan Assessment/Plan: diarrhea respiratory failure trach sinus tachycardia anemia wounds dermatitis bacteremia UTI MRSA and VRE colonized PLAN Cdif negative iv antibiotics ID noted IV hydration wound care all consultants appreciated remains ill monitor heart rate/ still high impression, plan, and exam edited and reviewed in detail care discussed with RN Subjective Allergies: Coded Allergies: No Known Allergies (Unverified , 02/09/20) Subjective JAMES care reviewed Objective Last 24 Hour Vital Signs Date Time Temp Pulse Resp B/P (MAP) Pulse Ox O2 Delivery O2 Flow Rate FiO2 02/12/20 07:24 127 21 30 02/12/20 05:13 122 22 30 02/12/20 04:00 30 02/12/20 04:00 Mechanical Ventilator 02/12/20 04:00 98.5 124 13 117/85 (96) 99 02/12/20 03:30 130 02/12/20 03:05 124 18 30 02/12/20 01:16 114 23 30 02/12/20 00:00 30 02/12/20 00:00 Mechanical Ventilator 02/12/20 00:00 98.6 114 20 108/78 (88) 100 02/11/20 23:32 121 02/11/20 23:04 121 25 30 02/11/20 20:55 138 23 30 02/11/20 20:26 123 117/84 02/11/20 20:00 Mechanical Ventilator 02/11/20 20:00 98.6 117 23 109/75 (86) 100 02/11/20 20:00 30 02/11/20 19:21 122 24 30 02/11/20 19:03 137 02/11/20 16:57 115 23 30 02/11/20 16:00 98.9 122 23 116/69 (85) 100 02/11/20 16:00 Mechanical Ventilator 02/11/20 16:00 30 02/11/20 16:00 119 02/11/20 15:47 118 22 30 02/11/20 13:37 109 21 30 02/11/20 12:00 98.9 124 21 117/89 (98) 99 02/11/20 12:00 30 02/11/20 12:00 Mechanical Ventilator 02/11/20 12:00 118 02/11/20 11:01 113 21 30 Intake and Output 02/11/20 02/12/20 19:00 07:00 Intake Total 621.667 ml 958.333 ml Output Total 500 ml 600 ml Balance 121.667 ml 358.333 ml IV Total 201.667 ml 238.333 ml Tube Feeding 420 ml 720 ml Output Urine Total 300 ml 300 ml Stool Total 200 ml 300 ml Laboratory Tests 02/12/20 05:35: White Blood Count 10.1, Red Blood Count 3.16L, Hemoglobin 9.0L, Hematocrit 30.4L , Mean Corpuscular Volume 96, Mean Corpuscular Hemoglobin 28.5, Mean Corpuscular Hemoglobin Concent 29.6L, Red Cell Distribution Width 21.4H, Platelet Count 374, Mean Platelet Volume 6.4L, Neutrophils (%) (Auto) 78.6H, Lymphocytes (%) (Auto) 12.7L, Monocytes (%) (Auto) 6.7, Eosinophils (%) (Auto) 0.3, Basophils (%) (Auto) 1.7, Sodium Level 144, Potassium Level 4.4, Chloride Level 107, Carbon Dioxide Level 29, Anion Gap 8, Blood Urea Nitrogen 22H, Creatinine 0.7, Estimat Glomerular Filtration Rate > 60, Glucose Level 203H, Calcium Level 8.0L, Magnesium Level 2.3, Total Bilirubin 0.4, Aspartate Amino Transf (AST/SGOT) 59H, Alanine Aminotransferase (ALT/SGPT) 29, Alkaline Phosphatase 460H, Troponin I 0.074H, Pro-B-Type Natriuretic Peptide 00953S, Total Protein 8.6H, Albumin 1.5L, Globulin 7.1, Albumin/Globulin Ratio 0.2L Height (Feet): 5 Height (Inches): 3.00 Weight (Pounds): 140 Objective WDWN NAD trach clear breath sounds bilaterally without rhonchi or wheeze [id number] without MRG NABS nontender GT no CCE nonfocal chronic rash Stevenson Medina MD Feb 12, 2020 09:06
[2020-02-12] MEDS: Heparin 5000 units/ml inj SUBQ SCH ×2 (09:08→21:17)
--- NOTE | 2020-02-12 10:57 | Infectious Diseases Prog Note ---
"Assessment/Plan Assessment/Plan antibiotics : vancomycin iv, zosyn A 1. gram negative pneumonia COVID 19 negative 2. proteus | gram negative UTI 3. MRSA sepsis r/o endocarditis 4. breast cancer 5. respiratory failure P 1. continue iv vancomycin, zosyn 2. 2 d echo 3. will follow up cultures Subjective ROS Limited/Unobtainable: Yes Allergies: Coded Allergies: No Known Allergies (Unverified , 02/09/20) Objective Last 24 Hour Vital Signs Date Time Temp Pulse Resp B/P (MAP) Pulse Ox O2 Delivery O2 Flow Rate FiO2 02/12/20 09:07 118 117/85 02/12/20 08:50 116 21 30 02/12/20 08:00 98.0 94 21 117/86 (96) 98 02/12/20 08:00 Mechanical Ventilator 02/12/20 08:00 30 02/12/20 07:40 119 02/12/20 07:24 127 21 30 02/12/20 05:13 122 22 30 02/12/20 04:00 30 02/12/20 04:00 Mechanical Ventilator 02/12/20 04:00 98.5 124 13 117/85 (96) 99 02/12/20 03:30 130 02/12/20 03:05 124 18 30 02/12/20 01:16 114 23 30 02/12/20 00:00 30 02/12/20 00:00 Mechanical Ventilator 02/12/20 00:00 98.6 114 20 108/78 (88) 100 02/11/20 23:32 121 02/11/20 23:04 121 25 30 02/11/20 20:55 138 23 30 02/11/20 20:26 123 117/84 02/11/20 20:00 Mechanical Ventilator 02/11/20 20:00 98.6 117 23 109/75 (86) 100 02/11/20 20:00 30 02/11/20 19:21 122 24 30 02/11/20 19:03 137 02/11/20 16:57 115 23 30 02/11/20 16:00 98.9 122 23 116/69 (85) 100 02/11/20 16:00 Mechanical Ventilator 02/11/20 16:00 30 02/11/20 16:00 119 02/11/20 15:47 118 22 30 02/11/20 13:37 109 21 30 8/17/20 12:00 98.9 124 21 117/89 (98) 99 02/11/20 12:00 30 02/11/20 12:00 Mechanical Ventilator 02/11/20 12:00 118 02/11/20 11:01 113 21 30 Height (Feet): 5 Height (Inches): 3.00 Weight (Pounds): 140 HEENT: status post trach Respiratory/Chest: lungs clear Cardiovascular: normal rate, regular rhythm, no gallop/murmur Abdomen: soft, non tender, other - GT Extremities: no edema Microbiology Date/Time Source Procedure Growth Status 02/09/20 18:00 Sputum Gram Stain - Final Resulted 02/09/20 18:00 Sputum Culture - Preliminary Gram Negative Bacillus 1 Gram Negative Bacillus 2 Resulted 02/09/20 22:20 Stool Clostridium difficile Toxin Assay - Final Complete Laboratory Tests Test 02/12/20 05:35 White Blood Count 10.1 K/UL (4.8-10.8) Red Blood Count 3.16 M/UL (4.20-5.40) L Hemoglobin 9.0 G/DL (12.0-16.0) L Hematocrit 30.4 % (37.0-47.0) L Mean Corpuscular Volume 96 FL (80-99) Mean Corpuscular Hemoglobin 28.5 PG (27.0-31.0) Mean Corpuscular Hemoglobin Concent 29.6 G/DL (32.0-36.0) L Red Cell Distribution Width 21.4 % (11.6-14.8) H Platelet Count 374 K/UL (150-450) Mean Platelet Volume 6.4 FL (6.5-10.1) L Neutrophils (%) (Auto) 78.6 % (45.0-75.0) H Lymphocytes (%) (Auto) 12.7 % (20.0-45.0) L Monocytes (%) (Auto) 6.7 % (1.0-10.0) Eosinophils (%) (Auto) 0.3 % (0.0-3.0) Basophils (%) (Auto) 1.7 % (0.0-2.0) Sodium Level 144 MMOL/L (136-145) Potassium Level 4.4 MMOL/L (3.5-5.1) Chloride Level 107 MMOL/L (98-107) Carbon Dioxide Level 29 MMOL/L (21-32) Anion Gap 8 mmol/L (5-15) Blood Urea Nitrogen 22 mg/dL (7-18) H Creatinine 0.7 MG/DL (0.55-1.30) Estimat Glomerular Filtration Rate > 60 mL/min (>60) Glucose Level 203 MG/DL (74-106) H Calcium Level 8.0 MG/DL (8.5-10.1) L Magnesium Level 2.3 MG/DL (1.8-2.4) Total Bilirubin 0.4 MG/DL (0.2-1.0) Aspartate Amino Transf (AST/SGOT) 59 U/L (15-37) H Alanine Aminotransferase (ALT/SGPT) 29 U/L (12-78) Alkaline Phosphatase 460 U/L (46-116) H Troponin I 0.074 ng/mL (0.000-0.056) Pro-B-Type Natriuretic Peptide 29348 pg/mL (0-125) H Total Protein 8.6 G/DL (6.4-8.2) H Albumin 1.5 G/DL (3.4-5.0) L Globulin 7.1 g/dL Albumin/Globulin Ratio 0.2 (1.0-2.7) L Current Medications Medications (Trade) Dose Ordered Sig/Lucy Route PRN Reason Start Time Stop Time Status Last Admin Dose Admin Acetaminophen (Tylenol) 650 mg Q4H PRN GT Mild Pain (Pain Scale 1-3) 02/09/20 10:30 03/10/20 10:29 02/09/20 12:06 Al Hydroxide/Mg Hydroxide (Mylanta) 30 ml FOUR TIMES A DAY GT 02/09/20 13:00 03/10/20 12:59 02/12/20 09:06 Ascorbic Acid (Vitamin C) 250 mg TWICE A DAY ORAL 02/11/20 18:00 03/12/20 17:59 02/12/20 09:06 Clonidine HCl (Catapres Tab) 0.1 mg Q4H PRN GT For High Blood Pressure 02/09/20 13:45 05/09/20 13:44 Diphenhydramine HCl (Benadryl) 25 mg Q6H PRN GT ITCHING 02/09/20 10:30 03/10/20 10:29 02/11/20 13:46 Famotidine (Pepcid) 20 mg TWICE A DAY GT 02/09/20 11:00 05/09/20 10:59 02/12/20 09:06 Heparin Sodium (Porcine) (Heparin 5000 units/ml) 5,000 units EVERY 12 HOURS SUBQ 02/09/20 21:00 03/25/20 20:59 02/12/20 09:08 Lansoprazole (Prevacid) 30 mg DAILY GT 02/10/20 09:00 03/11/20 08:59 02/12/20 09:06 Levothyroxine Sodium (Synthroid) 75 mcg DAILY GT 02/12/20 09:00 03/11/20 08:59 02/12/20 09:06 Metoprolol Tartrate (Lopressor) 25 mg EVERY 12 HOURS GT 02/11/20 09:00 05/11/20 08:59 02/12/20 09:07 Piperacillin Sod/ Tazobactam Sod 3.375 gm/Sodium Chloride 110 ml @ 27.5 mls/hr EVERY 8 HOURS IVPB 02/09/20 14:00 02/14/20 13:59 02/12/20 05:15 Vancomycin HCl (Vanco pharmacy to dose) 1 ea DAILY PRN MISC Per rx protocol 02/09/20 10:30 03/10/20 10:29 Vancomycin HCl 750 mg/Sodium Chloride 275 ml @ 183.333 mls/hr Q12HR@0600,1800 IVPB 02/09/20 18:00 02/14/20 17:59 02/12/20 05:16 Hong Camacho MD Feb 12, 2020 10:57"
[2020-02-12 12:00] VITALS: BP 123/85
[2020-02-12] MEDS ORDERED: Tubing IV Secondary IV ONE (13:13)
[2020-02-12] MEDS ORDERED: NS 275ml ONE (13:13)
--- NOTE | 2020-02-12 14:41 | Surgery Progress Note ---
Surgery Progress Note Subjective Additional Comments labs improving no n/v/f/c wbc resolved lft's alk phos noted on abx Objective Last 24 Hour Vital Signs Date Time Temp Pulse Resp B/P (MAP) Pulse Ox O2 Delivery O2 Flow Rate FiO2 02/12/20 14:14 30 02/12/20 12:50 133 24 30 02/12/20 12:00 Mechanical Ventilator 02/12/20 12:00 30 02/12/20 12:00 98.3 133 18 123/85 (98) 98 02/12/20 11:00 131 21 30 02/12/20 09:07 118 117/85 02/12/20 08:50 116 21 30 02/12/20 08:00 98.0 94 21 117/86 (96) 98 02/12/20 08:00 Mechanical Ventilator 02/12/20 08:00 30 02/12/20 07:40 119 02/12/20 07:24 127 21 30 02/12/20 05:13 122 22 30 02/12/20 04:00 30 02/12/20 04:00 Mechanical Ventilator 02/12/20 04:00 98.5 124 13 117/85 (96) 99 02/12/20 03:30 130 02/12/20 03:05 124 18 30 02/12/20 01:16 114 23 30 02/12/20 00:00 30 02/12/20 00:00 Mechanical Ventilator 02/12/20 00:00 98.6 114 20 108/78 (88) 100 02/11/20 23:32 121 02/11/20 23:04 121 25 30 02/11/20 20:55 138 23 30 02/11/20 20:26 123 117/84 02/11/20 20:00 Mechanical Ventilator 02/11/20 20:00 98.6 117 23 109/75 (86) 100 02/11/20 20:00 30 02/11/20 19:21 122 24 30 02/11/20 19:03 137 02/11/20 16:57 115 23 30 02/11/20 16:00 98.9 122 23 116/69 (85) 100 02/11/20 16:00 Mechanical Ventilator 02/11/20 16:00 30 02/11/20 16:00 119 02/11/20 15:47 118 22 30 I&O Intake and Output 02/11/20 02/12/20 19:00 07:00 Intake Total 621.667 ml 958.333 ml Output Total 500 ml 600 ml Balance 121.667 ml 358.333 ml IV Total 201.667 ml 238.333 ml Tube Feeding 420 ml 720 ml Output Urine Total 300 ml 300 ml Stool Total 200 ml 300 ml Dressing: saturated Cardiovascular: RSR Respiratory: decreased breath sounds Abdomen: soft, non-tender, present bowel sounds Extremities: no cyanosis Laboratory Tests Test 02/12/20 05:35 02/12/20 14:00 White Blood Count 10.1 K/UL (4.8-10.8) Red Blood Count 3.16 M/UL (4.20-5.40) L Hemoglobin 9.0 G/DL (12.0-16.0) L Hematocrit 30.4 % (37.0-47.0) L Mean Corpuscular Volume 96 FL (80-99) Mean Corpuscular Hemoglobin 28.5 PG (27.0-31.0) Mean Corpuscular Hemoglobin Concent 29.6 G/DL (32.0-36.0) L Red Cell Distribution Width 21.4 % (11.6-14.8) H Platelet Count 374 K/UL (150-450) Mean Platelet Volume 6.4 FL (6.5-10.1) L Neutrophils (%) (Auto) 78.6 % (45.0-75.0) H Lymphocytes (%) (Auto) 12.7 % (20.0-45.0) L Monocytes (%) (Auto) 6.7 % (1.0-10.0) Eosinophils (%) (Auto) 0.3 % (0.0-3.0) Basophils (%) (Auto) 1.7 % (0.0-2.0) Sodium Level 144 MMOL/L (136-145) Potassium Level 4.4 MMOL/L (3.5-5.1) Chloride Level 107 MMOL/L (98-107) Carbon Dioxide Level 29 MMOL/L (21-32) Anion Gap 8 mmol/L (5-15) Blood Urea Nitrogen 22 mg/dL (7-18) H Creatinine 0.7 MG/DL (0.55-1.30) Estimat Glomerular Filtration Rate > 60 mL/min (>60) Glucose Level 203 MG/DL (74-106) H Calcium Level 8.0 MG/DL (8.5-10.1) L Magnesium Level 2.3 MG/DL (1.8-2.4) Total Bilirubin 0.4 MG/DL (0.2-1.0) Aspartate Amino Transf (AST/SGOT) 59 U/L (15-37) H Alanine Aminotransferase (ALT/SGPT) 29 U/L (12-78) Alkaline Phosphatase 460 U/L (46-116) H Troponin I 0.074 ng/mL (0.000-0.056) Pro-B-Type Natriuretic Peptide 71319 pg/mL (0-125) H Total Protein 8.6 G/DL (6.4-8.2) H Albumin 1.5 G/DL (3.4-5.0) L Globulin 7.1 g/dL Albumin/Globulin Ratio 0.2 (1.0-2.7) L Arterial Blood pH 7.319 (7.350-7.450) Arterial Blood Partial Pressure CO2 52.0 mmHg (35.0-45.0) H Arterial Blood Partial Pressure O2 84.9 mmHg (75.0-100.0) Arterial Blood HCO3 26.1 mmol/L (22.0-26.0) H Arterial Blood Oxygen Saturation 94.1 % (95-100) L Arterial Blood Base Excess -0.3 (-2-2) Leonel Test Positive Plan Problems: (1) Sepsis Assessment & Plan: Leukocytosis, anemia, lactic acidosis sepsis uro uti likely wounds noted and stable unlikely etiology nutritional optimization tf as tolerated vent support cxr noted DAILY ESTIMATED NEEDS: Needs based on Wound, critical care 52.3kg abw 25-30 kcals/kg 5728-2949 total kcals 1.25-2 g protein/kg 65-105 g total protein 25-30 mL/kg 8474-5743 total fluid mLs NUTRITION DIAGNOSIS: Increased kcal and pro needs r/t wound healing as evidenced by pt w/multiple full thickness wounds, refer to wound care eval, pt is bedbound trach and peg dep. CURRENT TF: Glucerna 1.2 @60ml/hr x20 hrs ENTERAL NUTRITION RECOMMENDATIONS: Maintain Glucerna 1.2 w/ goal of 60ml/hr x20 hrs to provide 1200ml, 1440 kcal, 72g pro, 966ml free H2O - Maintain current TF rate to meet 100% est needs - Rec added PROSOURCE 1 pack daily (11g pro) to better meet est pro needs - Flush per MD. HOB over 30 degrees ADDITIONAL RECOMMENDATIONS: 1) Wound care: add GT BID + Vit C 250mg BID 2) Per SNF: 61 inches (5'1") and last wt 145 lbs/65.91kg Maintain calibrated bed scale wts w/ added P200 mattress 3) Rec NISS + accuchecks for improved BG (2) UTI (urinary tract infection) (3) Pneumonia (4) Decubitus skin ulcer Assessment & Plan: Pt presented on admission with Pressure Injuries, Tracheostomy,Alopecia, Generalized Hypopigmented Skin plaques. Few plaques noted to be open lesions but are pink and dry. Skin assessed under collar of trach and no areas of skin breakdown noted. Full thickness Pressure injury noted to R Buttocks(L)5.7cm x (W)1.7cm x (D) 0.3cm. Base of wound is 90% beefy-red,10% slough. Borders are macerated . surrounding dry skin with hypopigmented plaques. Full thickness Pressure injury L Buttocks(L)4.6cm x (W)4.5cm. Base of wound has clusters wounds with intertwining bridges. Wounds have mixed slough and jack appearances. Small amt serous exudate noted. Surrounding dry hypopigmented skin plaques. Proximally and in close proximity skin is denuded. Small pustule with surrounding erythema noted L Hallux(L)0.5cm x (W)0.6cm. NO changes in skin temp periwound. An area of hyperpigmentation from previous wound noted to medial/posterior R Heel. L Heel is otherwise boggy with non-blanching erythema. Reabsorbed DTPI L Heel(L)2.2cm x (W)2cm. Dry brown eschar at base of wound. NO erythema or fluctuance periwound. Unstageable Pressure injury L lateral Malleolus(L)0.7cm x (W)0.9cm. Base of wound has 100% slough.edges dry and adherent to base of wound. No erythema, induration,or fluctuance periwound. Tx.Plan: Cleanse wounds R and L Buttocks with Saline. Apply Therahoney to wounds. Apply Moisture Barrier Paste Periwound. Cover with Optifoam drsg Daily and prn. Apply Betadine to wound R Hallux. Cover with Optifoam drsg every 3 days and prn. Apply Betadine to L lateral Malleolus. Cover with Optifoam drsg. Change every 3 days and prn. Apply Cavilon Skin Barrier to both heels. Cover each heel with Optifoam drsg. Change every 7 days and prn. Reposition at least every 2hours or as tolerated. Off-load heels with pillow. APM/ELIDIA Mattress overlay. Zia Chung Feb 12, 2020 14:41
--- NOTE | 2020-02-12 14:58 | NUR ---
CASE MANAGEMENT: REVIEW SI: TACHYARRHYTHMIA . ELEVATED TROPONIN I . UTI . PNA T 98.3 HR 133 RR 24 BP 123/85 SAT 98% MECH VENT FIO2 30 H/H 9.0/30.4 GLUCOSE 203 TROP I 0.074 BNP 99717 IS: ZOSYN IV Q8HR VANCOMYCIN IV Q12HR LOPRESSOR GT Q12HR 2D ECHO PENDING STEP DOWN UNIT STATUS DCP: PATIENT IS FROM [facility]
--- NOTE | 2020-02-12 15:08 | NUR ---
INSURANCE CLINICALS AND REVIEW HAVE BEEN FAXED TO [facility] P: [phone] F: [phone] Addendum: 02/12/20 at 1608 by KRYSTINA FAN CM [facility]# [id number]
[2020-02-12 16:00] VITALS: BP 100/68
[2020-02-12] MEDS: DiphenhydrAMINE 25mg/10ml Elixir GT PRN (17:26)
--- NOTE | 2020-02-12 18:50 | NUR ---
RESPIRATORY NOTE: Received pt on AC 14, 550VT, 30%, PEEP +5. Pt is trach-dependent w/ a cuffed, Shiley 8 tube. Pt alert/awake, follows commands. B/S elina. rhonchi, sxn small amounts of thick, pale-yellow to mercado-yellow secretions. Vent plugged into red outlet, ambubag at bedside. Pt in no apparent distress at this time. Will continue plan of care.
--- NOTE | 2020-02-12 19:26 | NUR ---
NURSE HAND-OFF REPORT: Important Events on Shift: Pt. remain stable Patient Status: Diet: Pending Orders: Pending Results/Labs: Pending MD notification: Latest Vital Signs: Temperature 98.6 , Pulse 128 , B/P 100 /68 , Respiratory Rate 18 , O2 SAT 100 , Mechanical Ventilator, O2 Flow Rate 15.0 . Vital Sign Comment: stable EKG Rhythm: Sinus Tachycardia Rhythm change?: N MD Notified?: - MD Response: Message left await call Latest Hope Fall Score: 50 Fall Risk: High Risk Safety Measures: Call light Within Reach, Bed Alarm Zone 1, Side Rails Side Rails x3, Bed position Low and Locked. Fall Precautions: Yellow Socks Yellow Gown Patient Fall Education Report given to .
--- NOTE | 2020-02-12 19:27 | NUR ---
NURSE NOTES: received pt from Keith RN., pt is awake and AOx 3 at this moment. vent is on vent, O2sat is at 100% at this time. gtube site intact, clean, and patent. rectal tube in place and cristobal cath in place, both draining well with gravity. no active bleeding noted. pt states no pain at this time.right hand 22G iv site intact, clean, and patent. bed at the lowest position, alarmed, and locked. will continue to monitor pt with plan of care.
[2020-02-12 20:00] VITALS: BP 103/72
--- NOTE | 2020-02-12 21:51 | NUR ---
NURSE NOTES: left voice mail to Dr. Sorto regarding 5seconds episode of juanito cardia 45 per min and new EKG result. EKG done right after, and results shows ST with premature supraventicular complex and Sinus tachycardia with short MT. pt is asymptomatic, VSS, pt states no pain at this time. call light within reach. will continue to monitor pt.
--- NOTE | 2020-02-12 22:27 | Cardiology Progress Note ---
Subjective DATE OF SERVICE: Feb 12, 2020 On vent support Monitor: sinus tachycardia - with short episode of bradycardia Troponin still elevated - but in low range without significant progression Has moderate secretions from trach. Still with diarrhea - CDiff toxin negative Venous Duplex negative for DVT Objective Last 24 Hour Vital Signs Date Time Temp Pulse Resp B/P (MAP) Pulse Ox O2 Delivery O2 Flow Rate FiO2 02/12/20 21:15 133 103/70 02/12/20 21:01 123 18 30 02/12/20 20:00 98.6 112 19 103/72 (82) 100 02/12/20 20:00 Mechanical Ventilator 02/12/20 18:47 128 18 30 02/12/20 16:50 132 19 30 02/12/20 16:00 128 02/12/20 16:00 98.6 95 23 100/68 (79) 100 02/12/20 16:00 30 02/12/20 16:00 Mechanical Ventilator 02/12/20 15:06 137 17 30 02/12/20 14:14 30 02/12/20 12:50 133 24 30 02/12/20 12:00 Mechanical Ventilator 02/12/20 12:00 30 02/12/20 12:00 98.3 133 18 123/85 (98) 98 02/12/20 11:44 117 02/12/20 11:00 131 21 30 02/12/20 09:07 118 117/85 02/12/20 08:50 116 21 30 02/12/20 08:00 98.0 94 21 117/86 (96) 98 02/12/20 08:00 Mechanical Ventilator 02/12/20 08:00 30 02/12/20 07:40 119 02/12/20 07:24 127 21 30 02/12/20 05:13 122 22 30 02/12/20 04:00 30 02/12/20 04:00 Mechanical Ventilator 02/12/20 04:00 98.5 124 13 117/85 (96) 99 02/12/20 03:30 130 02/12/20 03:05 124 18 30 02/12/20 01:16 114 23 30 02/12/20 00:00 30 02/12/20 00:00 Mechanical Ventilator 02/12/20 00:00 98.6 114 20 108/78 (88) 100 02/11/20 23:32 121 02/11/20 23:04 121 25 30 ROS: unchanged from my note of 02/09/20 HEENT: Mechanically Ventilated, Thick Trach secretions RHYTHM: ST LUNGS: bilateral rhonchi CARDIAC: regular rhythm, normal S1 and S2, rapid rate, gallop/S4 ABDOMEN: normal bowel sounds, non tender, soft, no organomegaly, G-Tube intact EXTREMITIES: non-tender, no calf tenderness, No edema Laboratory Tests Test 02/12/20 05:35 02/12/20 14:00 White Blood Count 10.1 K/UL (4.8-10.8) Red Blood Count 3.16 M/UL (4.20-5.40) L Hemoglobin 9.0 G/DL (12.0-16.0) L Hematocrit 30.4 % (37.0-47.0) L Mean Corpuscular Volume 96 FL (80-99) Mean Corpuscular Hemoglobin 28.5 PG (27.0-31.0) Mean Corpuscular Hemoglobin Concent 29.6 G/DL (32.0-36.0) L Red Cell Distribution Width 21.4 % (11.6-14.8) H Platelet Count 374 K/UL (150-450) Mean Platelet Volume 6.4 FL (6.5-10.1) L Neutrophils (%) (Auto) 78.6 % (45.0-75.0) H Lymphocytes (%) (Auto) 12.7 % (20.0-45.0) L Monocytes (%) (Auto) 6.7 % (1.0-10.0) Eosinophils (%) (Auto) 0.3 % (0.0-3.0) Basophils (%) (Auto) 1.7 % (0.0-2.0) Sodium Level 144 MMOL/L (136-145) Potassium Level 4.4 MMOL/L (3.5-5.1) Chloride Level 107 MMOL/L (98-107) Carbon Dioxide Level 29 MMOL/L (21-32) Anion Gap 8 mmol/L (5-15) Blood Urea Nitrogen 22 mg/dL (7-18) H Creatinine 0.7 MG/DL (0.55-1.30) Estimat Glomerular Filtration Rate > 60 mL/min (>60) Glucose Level 203 MG/DL (74-106) H Calcium Level 8.0 MG/DL (8.5-10.1) L Magnesium Level 2.3 MG/DL (1.8-2.4) Total Bilirubin 0.4 MG/DL (0.2-1.0) Aspartate Amino Transf (AST/SGOT) 59 U/L (15-37) H Alanine Aminotransferase (ALT/SGPT) 29 U/L (12-78) Alkaline Phosphatase 460 U/L (46-116) H Troponin I 0.074 ng/mL (0.000-0.056) Pro-B-Type Natriuretic Peptide 82556 pg/mL (0-125) H Total Protein 8.6 G/DL (6.4-8.2) H Albumin 1.5 G/DL (3.4-5.0) L Globulin 7.1 g/dL Albumin/Globulin Ratio 0.2 (1.0-2.7) L Arterial Blood pH 7.319 (7.350-7.450) Arterial Blood Partial Pressure CO2 52.0 mmHg (35.0-45.0) H Arterial Blood Partial Pressure O2 84.9 mmHg (75.0-100.0) Arterial Blood HCO3 26.1 mmol/L (22.0-26.0) H Arterial Blood Oxygen Saturation 94.1 % (95-100) L Arterial Blood Base Excess -0.3 (-2-2) Leonel Test Positive Assessment/Plan Assessment/Plan Sepsis Diarrhea with negative [facility] PNA Respiratory failure with trach Sinus tachycardia Acute myocardial ischemia with elevated troponin levels Hypovolemia/dehydration Moderate protein calorie malnutrition Acute on chronic respiratory acidosis Sinus node disease Vent support Abx Titrate beta mingo DVT prophylaxis Nutritional support by GTUbe Monitor acid-base parameters and adjust settings. Luis Felipe Sorto MD Feb 12, 2020 22:27
[2020-02-13] VITALS: BP 104/72
[2020-02-13 04:00] VITALS: BP 114/77
[2020-02-13] MEDS: Vancomycin 750mg/NS 275ml IVPB SCH ×4 (05:27→18:11)
[2020-02-13] MEDS: Zosyn 3.375gm q8h **Extended infusion IVPB SCH ×6 (05:27→21:03)
--- NOTE | 2020-02-13 07:43 | NUR ---
NURSE HAND-OFF REPORT: Important Events on Shift:HR went down to 45 for 5 seconds Patient Status: full code Diet:Glucerna 1.2 Pending Orders: N Pending Results/Labs:N Pending MD notification:Dr. Sorto left voice mail regarding juanito for 5 seconds. Latest Vital Signs: Temperature 98.5 , Pulse 128 , B/P 114 /77 , Respiratory Rate 16 , O2 SAT 100 , Mechanical Ventilator, O2 Flow Rate 15.0 . Vital Sign Comment: stable EKG Rhythm: Sinusbrady and ST Rhythm change?: N MD Notified?: - MD Response: Message left await call Latest Hope Fall Score: 50 Fall Risk: High Risk Safety Measures: Call light Within Reach, Bed Alarm Zone 1, Side Rails Side Rails x3, Bed position Low and Locked. Fall Precautions: Yellow Socks Yellow Gown Patient Fall Education Report given to LEIA SOW
--- NOTE | 2020-02-13 07:50 | NUR ---
NURSE NOTES: Received report from MAGI Bishop. The patient is restless, anxious, and agitated and keep asking ice chip to put in her mouth. Explained that the patient is getting feeding, water, and medications via GT but confused at this time. [facility] and communication made by facial expression and body movement. 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 Sorto was notified. [facility] and on mechanical ventilator with following setting and oxygen saturation is 100%: Shiley 8, AC 14, TV 550, FiO2 30%, PEEP 5, and pressure support 8. GT intact and patent and running Glucerna 1.2 @ 60mL/hr per order with no residual. The patient has rectal tube and light brown color diarrhea noted. The patient has Vann that is intact and draining by gravity. Skin issue noted and dressing intact. The patient has L hand 22G that is intact and patent and kept in TKO. The patient's bed in the lowest position, call light in reach, and fall and aspiration precaution reinforced. IV site intact and patent. Will follow up the lab and order. Will closely monitor the patient. Will continue plan of care.
[2020-02-13 08:00] VITALS: BP 103/71
--- NOTE | 2020-02-13 08:00 | NUR ---
NURSE NOTES: Initial vital signs taken. Initial nursing assessment done. The patient is anxious and agitated. Will closely monitor the patient. Will continue plan of care.
--- NOTE | 2020-02-13 09:18 | General Progress Note ---
Assessment/Plan Assessment/Plan: diarrhea respiratory failure trach sinus tachycardia anemia wounds dermatitis bacteremia UTI MRSA and VRE colonized PLAN Cdif negative iv antibiotics ID noted IV hydration wound care all consultants appreciated remains ill monitor heart rate/ still high/ d/w cards continue to monitor impression, plan, and exam edited and reviewed in detail care discussed with RN Subjective ROS Limited/Unobtainable: Yes Allergies: Coded Allergies: No Known Allergies (Unverified , 02/09/20) Subjective JAMES care reviewed d/w son Objective Last 24 Hour Vital Signs Date Time Temp Pulse Resp B/P (MAP) Pulse Ox O2 Delivery O2 Flow Rate FiO2 02/13/20 09:12 130 18 30 02/13/20 07:00 128 16 30 02/13/20 05:24 132 14 30 02/13/20 04:00 Mechanical Ventilator 02/13/20 04:00 98.5 126 17 114/77 (89) 100 02/13/20 04:00 30 02/13/20 03:35 122 02/13/20 03:00 121 15 30 02/13/20 00:44 120 14 30 02/13/20 00:00 30 02/13/20 00:00 98.8 118 19 104/72 (83) 100 02/13/20 00:00 Mechanical Ventilator 02/12/20 23:33 115 02/12/20 23:15 136 16 30 02/12/20 21:15 133 103/70 02/12/20 21:01 123 18 30 02/12/20 20:00 98.6 112 19 103/72 (82) 100 02/12/20 20:00 Mechanical Ventilator 02/12/20 19:24 122 02/12/20 18:47 128 18 30 02/12/20 16:50 132 19 30 02/12/20 16:00 128 02/12/20 16:00 98.6 95 23 100/68 (79) 100 02/12/20 16:00 30 02/12/20 16:00 Mechanical Ventilator 02/12/20 15:06 137 17 30 02/12/20 14:14 30 02/12/20 12:50 133 24 30 02/12/20 12:00 Mechanical Ventilator 02/12/20 12:00 30 02/12/20 12:00 98.3 133 18 123/85 (98) 98 02/12/20 11:44 117 02/12/20 11:00 131 21 30 Intake and Output 02/12/20 02/13/20 19:00 07:00 Intake Total 1089.167 ml 1190.833 ml Output Total 600 ml 850 ml Balance 489.167 ml 340.833 ml Intake Free Water 250 ml 150 ml IV Total 119.167 ml 320.833 ml Tube Feeding 720 ml 720 ml Output Urine Total 400 ml 350 ml Stool Total 200 ml 500 ml Laboratory Tests 02/12/20 14:00: Arterial Blood pH 7.319L, Arterial Blood Partial Pressure CO2 52.0H, Arterial Blood Partial Pressure O2 84.9, Arterial Blood HCO3 26.1H, Arterial Blood Oxygen Saturation 94.1L, Arterial Blood Base Excess -0.3, Leonel Test Positive Height (Feet): 5 Height (Inches): 3.00 Weight (Pounds): 141 Objective WDWN NAD trach clear breath sounds bilaterally without rhonchi or wheeze [id number] without MRG NABS nontender GT no CCE nonfocal chronic rash Stevenson Medina MD Feb 13, 2020 09:18
[2020-02-13] MEDS: Heparin 5000 units/ml inj SUBQ SCH ×2 (09:22→21:02)
[2020-02-13] MEDS: Ascorbic Acid 500mg tab ORAL SCH ×2 (09:23→18:11)
[2020-02-13] MEDS: Acetaminophen 650mg/20.3ml GT PRN ×2 (09:38→21:00)
--- NOTE | 2020-02-13 10:00 | NUR ---
NURSE NOTES: Medications administered per order. Tolerated well. Will closely monitor the patient. Will continue plan of care.
--- NOTE | 2020-02-13 10:30 | NUR ---
NURSE NOTES: Dr. Medina at the bedside assessed the patient. Dr. Medina was notified regarding continuous diarrhea. Dr. Medina ordered Lomotil PRN. Will administer as ordered. Will continue plan of care. Dr. Sequeira at the bedside assessed the patient. Notified continuous diarrhea. Will continue plan of care.
[2020-02-13] MEDS ORDERED: Lomotil 2.5mg tab GT PRN (11:00)
--- NOTE | 2020-02-13 11:07 | Infectious Diseases Prog Note ---
"Assessment/Plan Assessment/Plan antibiotics : vancomycin iv, zosyn A 1. acenitobacter, gram negative pneumonia COVID 19 negative 2. proteus | e.coli UTI 3. MRSA sepsis r/o endocarditis 4. breast cancer 5. respiratory failure P 1. continue iv vancomycin, zosyn 2. 2 d echo 3. will follow up cultures Subjective Gastrointestinal/Abdominal: Reports: diarrhea Allergies: Coded Allergies: No Known Allergies (Unverified , 02/09/20) Objective Last 24 Hour Vital Signs Date Time Temp Pulse Resp B/P (MAP) Pulse Ox O2 Delivery O2 Flow Rate FiO2 02/13/20 10:57 125 18 30 02/13/20 09:22 130 103/71 02/13/20 09:12 130 18 30 02/13/20 07:56 132 02/13/20 07:00 128 16 30 02/13/20 05:24 132 14 30 02/13/20 04:00 Mechanical Ventilator 02/13/20 04:00 98.5 126 17 114/77 (89) 100 02/13/20 04:00 30 02/13/20 03:35 122 02/13/20 03:00 121 15 30 02/13/20 00:44 120 14 30 02/13/20 00:00 30 02/13/20 00:00 98.8 118 19 104/72 (83) 100 02/13/20 00:00 Mechanical Ventilator 02/12/20 23:33 115 02/12/20 23:15 136 16 30 02/12/20 21:15 133 103/70 02/12/20 21:01 123 18 30 02/12/20 20:00 98.6 112 19 103/72 (82) 100 02/12/20 20:00 Mechanical Ventilator 02/12/20 19:24 122 02/12/20 18:47 128 18 30 02/12/20 16:50 132 19 30 02/12/20 16:00 128 02/12/20 16:00 98.6 95 23 100/68 (79) 100 02/12/20 16:00 30 02/12/20 16:00 Mechanical Ventilator 02/12/20 15:06 137 17 30 02/12/20 14:14 30 02/12/20 12:50 133 24 30 02/12/20 12:00 Mechanical Ventilator 02/12/20 12:00 30 02/12/20 12:00 98.3 133 18 123/85 (98) 98 02/12/20 11:44 117 Height (Feet): 5 Height (Inches): 3.00 Weight (Pounds): 141 HEENT: status post trach Respiratory/Chest: lungs clear Cardiovascular: normal rate, regular rhythm, no gallop/murmur Abdomen: soft, non tender, other - GT Extremities: no edema, other - right subclavian Laboratory Tests Test 02/12/20 14:00 Arterial Blood pH 7.319 (7.350-7.450) Arterial Blood Partial Pressure CO2 52.0 mmHg (35.0-45.0) H Arterial Blood Partial Pressure O2 84.9 mmHg (75.0-100.0) Arterial Blood HCO3 26.1 mmol/L (22.0-26.0) H Arterial Blood Oxygen Saturation 94.1 % (95-100) L Arterial Blood Base Excess -0.3 (-2-2) Leonel Test Positive Current Medications Medications (Trade) Dose Ordered Sig/Lucy Route PRN Reason Start Time Stop Time Status Last Admin Dose Admin Acetaminophen (Tylenol) 650 mg Q4H PRN GT Mild Pain (Pain Scale 1-3) 02/09/20 10:30 03/10/20 10:29 02/13/20 09:38 Al Hydroxide/Mg Hydroxide (Mylanta) 30 ml FOUR TIMES A DAY GT 02/09/20 13:00 03/10/20 12:59 02/13/20 09:22 Ascorbic Acid (Vitamin C) 250 mg TWICE A DAY ORAL 02/11/20 18:00 03/12/20 17:59 02/13/20 09:23 Clonidine HCl (Catapres Tab) 0.1 mg Q4H PRN GT For High Blood Pressure 02/09/20 13:45 05/09/20 13:44 Diphenhydramine HCl (Benadryl) 25 mg Q6H PRN GT ITCHING 02/09/20 10:30 03/10/20 10:29 02/12/20 17:26 Diphenoxylate HCl/ Atropine (Lomotil) 2.5 mg Q6H PRN GT Diarrhea 02/13/20 11:00 03/14/20 10:59 Famotidine (Pepcid) 20 mg TWICE A DAY GT 02/09/20 11:00 05/09/20 10:59 02/13/20 09:23 Heparin Sodium (Porcine) (Heparin 5000 units/ml) 5,000 units EVERY 12 HOURS SUBQ 02/09/20 21:00 03/25/20 20:59 02/13/20 09:22 Lansoprazole (Prevacid) 30 mg DAILY GT 02/10/20 09:00 03/11/20 08:59 02/13/20 09:23 Levothyroxine Sodium (Synthroid) 75 mcg DAILY GT 02/12/20 09:00 03/11/20 08:59 02/13/20 09:23 Metoprolol Tartrate (Lopressor) 25 mg EVERY 12 HOURS GT 02/11/20 09:00 05/11/20 08:59 02/13/20 09:22 Piperacillin Sod/ Tazobactam Sod 3.375 gm/Sodium Chloride 110 ml @ 27.5 mls/hr EVERY 8 HOURS IVPB 02/09/20 14:00 02/14/20 13:59 02/13/20 05:27 Vancomycin HCl (Vanco pharmacy to dose) 1 ea DAILY PRN MISC Per rx protocol 02/09/20 10:30 03/10/20 10:29 Vancomycin HCl 750 mg/Sodium Chloride 275 ml @ 183.333 mls/hr Q12HR@0600,1800 IVPB 02/09/20 18:00 02/14/20 17:59 02/13/20 05:27 Hong Camacho MD Feb 13, 2020 11:07"
[2020-02-13 12:00] VITALS: BP 105/72
--- NOTE | 2020-02-13 12:15 | NUR ---
NURSE NOTES: Dr. Medina and Dr. Sorto were notified regarding ST with HR of 150s and systolic BP of 80s. Dr. Medina ordered 1L NS bolus. Will administer as soon as possible. Dr. Sorto ordered stat EKG to be faxed. Completed EKG and faxed over to Dr. Sorto's office. The patient is confused but still using mouth words, and mental status same as baseline. No chest pain or shortness of breath noted. Will closely monitor the patient. Will continue plan of care. Addendum: 02/13/20 at 1559 by Mumtaz Hayward RN Dr. Medina was notified regarding abnormal lab. No new order at this time. Dr. Sorto was notified regarding uptrending Troponin. No new order at this time. Will continue plan of care.
--- NOTE | 2020-02-13 12:59 | Surgery Progress Note ---
Surgery Progress Note Subjective Additional Comments no acute events comfortable stable Objective Last 24 Hour Vital Signs Date Time Temp Pulse Resp B/P (MAP) Pulse Ox O2 Delivery O2 Flow Rate FiO2 02/13/20 12:40 122 15 30 02/13/20 10:57 125 18 30 02/13/20 09:22 130 103/71 02/13/20 09:12 130 18 30 02/13/20 08:00 98.9 130 14 103/71 (82) 100 02/13/20 08:00 30 02/13/20 08:00 Mechanical Ventilator 02/13/20 07:56 132 02/13/20 07:00 128 16 30 02/13/20 05:24 132 14 30 02/13/20 04:00 Mechanical Ventilator 02/13/20 04:00 98.5 126 17 114/77 (89) 100 02/13/20 04:00 30 02/13/20 03:35 122 02/13/20 03:00 121 15 30 02/13/20 00:44 120 14 30 02/13/20 00:00 30 02/13/20 00:00 98.8 118 19 104/72 (83) 100 02/13/20 00:00 Mechanical Ventilator 02/12/20 23:33 115 02/12/20 23:15 136 16 30 02/12/20 21:15 133 103/70 02/12/20 21:01 123 18 30 02/12/20 20:00 98.6 112 19 103/72 (82) 100 02/12/20 20:00 Mechanical Ventilator 02/12/20 19:24 122 02/12/20 18:47 128 18 30 02/12/20 16:50 132 19 30 02/12/20 16:00 128 02/12/20 16:00 98.6 95 23 100/68 (79) 100 02/12/20 16:00 30 02/12/20 16:00 Mechanical Ventilator 02/12/20 15:06 137 17 30 02/12/20 14:14 30 I&O Intake and Output 02/12/20 02/13/20 19:00 07:00 Intake Total 1089.167 ml 1190.833 ml Output Total 600 ml 850 ml Balance 489.167 ml 340.833 ml Intake Free Water 250 ml 150 ml IV Total 119.167 ml 320.833 ml Tube Feeding 720 ml 720 ml Output Urine Total 400 ml 350 ml Stool Total 200 ml 500 ml Dressing: saturated Wound: clean Cardiovascular: RSR Respiratory: clear, decreased breath sounds Abdomen: soft, non-tender, present bowel sounds Extremities: no tenderness, no cyanosis Laboratory Tests Test 02/12/20 14:00 Arterial Blood pH 7.319 (7.350-7.450) Arterial Blood Partial Pressure CO2 52.0 mmHg (35.0-45.0) H Arterial Blood Partial Pressure O2 84.9 mmHg (75.0-100.0) Arterial Blood HCO3 26.1 mmol/L (22.0-26.0) H Arterial Blood Oxygen Saturation 94.1 % (95-100) L Arterial Blood Base Excess -0.3 (-2-2) Leonel Test Positive Plan Problems: (1) Sepsis Assessment & Plan: Leukocytosis, anemia, lactic acidosis sepsis uro uti likely wounds noted and stable unlikely etiology nutritional optimization tf as tolerated vent support cxr noted DAILY ESTIMATED NEEDS: Needs based on Wound, critical care 52.3kg abw 25-30 kcals/kg 0550-1319 total kcals 1.25-2 g protein/kg 65-105 g total protein 25-30 mL/kg 2332-4971 total fluid mLs NUTRITION DIAGNOSIS: Increased kcal and pro needs r/t wound healing as evidenced by pt w/multiple full thickness wounds, refer to wound care eval, pt is bedbound trach and peg dep. CURRENT TF: Glucerna 1.2 @60ml/hr x20 hrs ENTERAL NUTRITION RECOMMENDATIONS: Maintain Glucerna 1.2 w/ goal of 60ml/hr x20 hrs to provide 1200ml, 1440 kcal, 72g pro, 966ml free H2O - Maintain current TF rate to meet 100% est needs - Rec added PROSOURCE 1 pack daily (11g pro) to better meet est pro needs - Flush per . HOB over 30 degrees ADDITIONAL RECOMMENDATIONS: 1) Wound care: add GT BID + Vit C 250mg BID 2) Per SNF: 61 inches (5'1") and last wt 145 lbs/65.91kg Maintain calibrated bed scale wts w/ added P200 mattress 3) Rec NISS + accuchecks for improved BG (2) UTI (urinary tract infection) (3) Pneumonia (4) Decubitus skin ulcer Assessment & Plan: Pt presented on admission with Pressure Injuries, Tracheostomy,Alopecia, Generalized Hypopigmented Skin plaques. Few plaques noted to be open lesions but are pink and dry. Skin assessed under collar of trach and no areas of skin breakdown noted. Full thickness Pressure injury noted to R Buttocks(L)5.7cm x (W)1.7cm x (D) 0.3cm. Base of wound is 90% beefy-red,10% slough. Borders are macerated . surrounding dry skin with hypopigmented plaques. Full thickness Pressure injury L Buttocks(L)4.6cm x (W)4.5cm. Base of wound has clusters wounds with intertwining bridges. Wounds have mixed slough and jack appearances. Small amt serous exudate noted. Surrounding dry hypopigmented skin plaques. Proximally and in close proximity skin is denuded. Small pustule with surrounding erythema noted L Hallux(L)0.5cm x (W)0.6cm. NO changes in skin temp periwound. An area of hyperpigmentation from previous wound noted to medial/posterior R Heel. L Heel is otherwise boggy with non-blanching erythema. Reabsorbed DTPI L Heel(L)2.2cm x (W)2cm. Dry brown eschar at base of wound. NO erythema or fluctuance periwound. Unstageable Pressure injury L lateral Malleolus(L)0.7cm x (W)0.9cm. Base of wound has 100% slough.edges dry and adherent to base of wound. No erythema, induration,or fluctuance periwound. Tx.Plan: Cleanse wounds R and L Buttocks with Saline. Apply Therahoney to wounds. Apply Moisture Barrier Paste Periwound. Cover with Optifoam drsg Daily and prn. Apply Betadine to wound R Hallux. Cover with Optifoam drsg every 3 days and prn. Apply Betadine to L lateral Malleolus. Cover with Optifoam drsg. Change every 3 days and prn. Apply Cavilon Skin Barrier to both heels. Cover each heel with Optifoam drsg. Change every 7 days and prn. Reposition at least every 2hours or as tolerated. Off-load heels with pillow. APM/ELIDIA Mattress overlay. Zia Chung Feb 13, 2020 12:59
--- NOTE | 2020-02-13 13:00 | NUR ---
NURSE NOTES: SBP went upto 110s at this time. Free from chest pain, shortness of breath, and mental status remains the same as baseline. Will closely monitor the patient. Will continue plan of care.
[2020-02-13] MEDS: Colistin for inhalation INH SCH ×2 (15:00→22:00)
--- NOTE | 2020-02-13 15:00 | NUR ---
NURSE NOTES: The patient is still agitated and confused. HR of 120s noted. BP stable at this time. Will closely monitor the patient. Will continue plan of care.
[2020-02-13 16:00] VITALS: BP 116/75
--- NOTE | 2020-02-13 16:43 | NUR ---
CASE MANAGEMENT: REVIEW SI: TACHYARRHYTHMIA . ELEVATED TROPONIN I . UTI . PNA T 98.1 HR 132 RR 14 BP 105/72 SAT 100% MECH VENT FIO2 30 IS: COLISTIN INH ZOSYN IV Q8HR VANCOMYCIN IV Q12HR LOPRESSOR GT Q12HR NS IVF BOLUS X1 STEP DOWN UNIT STATUS DCP: PATIENT IS FROM [facility]
--- NOTE | 2020-02-13 16:53 | NUR ---
INSURANCE CLINICALS AND REVIEW HAVE BEEN FAXED TO [facility] P: [phone] F: [phone] AUTH# [id number]
--- NOTE | 2020-02-13 17:00 | NUR ---
NURSE NOTES: Bed bath given to the patient. Tolerated well. Rectal tube BM output noted. Will closely monitor the patient. Will continue plan of care.
--- NOTE | 2020-02-13 17:30 | NUR ---
NURSE NOTES: Dr. Sorto at the bedside assessed the patient. Notified again regarding ST with HR of 150s highest, BP of 80s systolic around 1230 that was improved with bolus therapy, agitation and confusion, and uptrending Troponin. Per Dr. Sorto, he received EKG that was faxed over earlier today. Per Dr. Sorto, he will review and will put orders as needed. Will closely monitor the patient. Will continue plan of care.
--- NOTE | 2020-02-13 17:56 | General Progress Note ---
Assessment/Plan Assessment/Plan: GI CONSULT ATSP for diarrhea, C Diff (-) Sx possibly due to PO Mylanta Will hold and observe Continue TF Thank you Priti Sequeira MD Subjective Allergies: Coded Allergies: No Known Allergies (Unverified , 02/09/20) Objective Last 24 Hour Vital Signs Date Time Temp Pulse Resp B/P (MAP) Pulse Ox O2 Delivery O2 Flow Rate FiO2 02/13/20 17:06 120 15 30 02/13/20 16:00 123 02/13/20 16:00 30 02/13/20 16:00 97.9 124 14 116/75 (89) 100 02/13/20 16:00 Mechanical Ventilator 02/13/20 14:46 114 16 30 02/13/20 12:40 122 15 30 02/13/20 12:00 98.1 129 14 105/72 (83) 100 02/13/20 12:00 30 02/13/20 12:00 Mechanical Ventilator 02/13/20 11:41 129 02/13/20 10:57 125 18 30 02/13/20 09:22 130 103/71 02/13/20 09:12 130 18 30 02/13/20 08:00 98.9 130 14 103/71 (82) 100 02/13/20 08:00 30 02/13/20 08:00 Mechanical Ventilator 02/13/20 07:56 132 02/13/20 07:00 128 16 30 02/13/20 05:24 132 14 30 02/13/20 04:00 Mechanical Ventilator 02/13/20 04:00 98.5 126 17 114/77 (89) 100 02/13/20 04:00 30 02/13/20 03:35 122 02/13/20 03:00 121 15 30 02/13/20 00:44 120 14 30 02/13/20 00:00 30 02/13/20 00:00 98.8 118 19 104/72 (83) 100 02/13/20 00:00 Mechanical Ventilator 02/12/20 23:33 115 02/12/20 23:15 136 16 30 02/12/20 21:15 133 103/70 02/12/20 21:01 123 18 30 02/12/20 20:00 98.6 112 19 103/72 (82) 100 02/12/20 20:00 Mechanical Ventilator 02/12/20 19:24 122 02/12/20 18:47 128 18 30 Intake and Output 02/12/20 02/13/20 19:00 07:00 Intake Total 1089.167 ml 1190.833 ml Output Total 600 ml 850 ml Balance 489.167 ml 340.833 ml Intake Free Water 250 ml 150 ml IV Total 119.167 ml 320.833 ml Tube Feeding 720 ml 720 ml Output Urine Total 400 ml 350 ml Stool Total 200 ml 500 ml Height (Feet): 5 Height (Inches): 3.00 Weight (Pounds): 141 Priti Sequeira MD Feb 13, 2020 17:56
--- NOTE | 2020-02-13 18:00 | NUR ---
NURSE NOTES: New IV inserted on L hand 22G that is intact and patent. Will closely monitor the patient. Will continue plan of care.
--- NOTE | 2020-02-13 19:00 | NUR ---
NURSE NOTES: Dr. Medina was notified regarding pain on bladder area. Dr. Medina ordered to remove current Vann and insert new one. Will carry out as soon as possible. Will continue plan of care.
--- NOTE | 2020-02-13 19:30 | NUR ---
NURSE HAND-OFF REPORT: Important Events on Shift: ST with HR of 150s highest, Hypotensive episode, Uptrending Troponin, New IV, Diarrhea Patient Status: Stable,Full code Diet: GTF Glucerna 1.2 @ 60mL/hr with no residual Pending Orders: Remove current Vann and insert new Vann Pending Results/Labs: N Pending MD notification: N Latest Vital Signs: Temperature 97.9 , Pulse 115 , B/P 116 /75 , Respiratory Rate 16 , O2 SAT 100 , Mechanical Ventilator, O2 Flow Rate 15.0 . Vital Sign Comment: Stable EKG Rhythm: Sinus Tachycardia Rhythm change?: N MD Notified?: - MD Response: Message left await call Latest Hope Fall Score: 50 Fall Risk: High Risk Safety Measures: Call light Within Reach, Bed Alarm Zone 2, Side Rails Side Rails x3, Bed position Low and Locked. Fall Precautions: Yellow Socks Yellow Gown Door Sign Patient Fall Education Report given to MAGI Quevedo. Endorsed to remove current Vann and insert new Vann per Dr. Medina's order. The patient is stable at this time. Endorsed plan of care.
--- NOTE | 2020-02-13 19:31 | NUR ---
NURSE NOTES: Received report from MAGI Hemphill. A/Ox2. Unable to make needs known secondary to ventilation. offered pen and paper to write but pt refuses. PERRLA. Left side weakness noted. pt affect is agitated and uncooperative. pt able to perform own oral care with nurse at bedside s2 s3 heart sounds. EKG shows Sinus Tachy during start of shift. Bilateral radial pulses bounding. +2 pitting edema on all extremities and <3 cap refill. Crackles heard throughout bilateral lower lobes upon auscultation. Active bowel sounds heard RLQ. g-tube site intact with 30 mL residual. no drainage. g-tube running glucerna 1.2 @ 60 cc per order. left IV infiltrated - added new IV on left thumb and left hand. new cristobal inserted per MD request. bed left in lowest and locked position. bed alarm on and call light within reach. will continue monitoring.
[2020-02-13 20:00] VITALS: BP 109/68
--- NOTE | 2020-02-13 20:59 | Consultation ---
DATE OF CONSULTATION: 02/13/2020 GASTROENTEROLOGY CONSULTATION CONSULTING PHYSICIAN: Priti Sequeira MD REFERRING PHYSICIAN: Stevenson Medina MD CHIEF COMPLAINT: I was asked to see this patient by Dr. Stevenson Medina for evaluation of profuse diarrhea. HISTORY OF PRESENT ILLNESS: The patient is a 54-year-old woman who was chronically ill with a tracheostomy and a gastrostomy, who is a senior care resident, who was brought into the hospital from a nursing facility due to chest pain. The patient has been seen by Cardiology and has been evaluated and treated with multiple medications. She has been noted now to have profuse diarrhea, which is Clostridium difficile-negative. She is also negative for COVID-19 infection. The etiology of the diarrhea is unclear and therefore, this consultation was generated. The patient is able to respond to questions with her head nodding and lip movements. She denies any abdominal pain or previous history of diarrhea. PAST MEDICAL HISTORY: History of chronic respiratory failure, chronic dermatitis, history of breast cancer, history of anemia, status tracheostomy, status gastrostomy, and bedbound state. FAMILY HISTORY: Noncontributory. SOCIAL HISTORY: The patient is from a senior care. REVIEW OF SYSTEMS: Unobtainable. PHYSICAL EXAMINATION: GENERAL: Debilitated woman with multiple skin lesions resembling diffuse viteligo, in no distress. HEENT: Normocephalic and atraumatic. Sclerae anicteric. NECK: Supple. CHEST: Tracheostomy is in place. Chest exam revealed coarse breath sounds. CARDIOVASCULAR: Revealed regular rate. ABDOMEN: Soft with some skin breakdown with gastrostomy tube in good position. EXTREMITIES: Revealed no edema. LABORATORY DATA: Noted. ASSESSMENT: This patient presents with profuse diarrhea of unclear etiology. The onset of diarrhea as well was relatively recent and review of her medication list on admission shows that she has been started on Mylanta for her chest discomfort and it is possible that 4 times a day dosing of Mylanta may have resulted in diarrhea. If so, then the diagnosis would be easy. It should stop once the Mylanta has been discontinued. The patient has already been checked and negative for Clostridium difficile colitis. If discontinuing the Mylanta does not resolve the problem, then further workup will be indicated. This could include cultures for other pathogens and viral pathogens and will get a colonoscopy. RECOMMENDATIONS: Per above discussion and per orders written in the chart. Thank you for asking me to participate in the care of this patient. Priti Sequeira M.D. DR: Steve JOB#: [id number] CC: MIRNA
[2020-02-14] VITALS: BP 122/65
--- NOTE | 2020-02-14 01:31 | Cardiology Progress Note ---
Subjective DATE OF SERVICE: Feb 13, 2020 On vent support Monitor: sinus tachycardia persists. Episode of rapid atrial flutter noted as well. Troponin still elevated - but in low range without significant progression Has moderate secretions from trach. Still with diarrhea - CDiff toxin negative Venous Duplex negative for DVT Objective Last 24 Hour Vital Signs Date Time Temp Pulse Resp B/P (MAP) Pulse Ox O2 Delivery O2 Flow Rate FiO2 02/14/20 00:57 122 19 30 02/14/20 00:00 98.6 113 22 122/65 (84) 100 02/14/20 00:00 30 02/14/20 00:00 Mechanical Ventilator 02/13/20 23:00 118 22 30 02/13/20 20:38 98 109/68 02/13/20 20:35 121 16 30 02/13/20 20:00 Mechanical Ventilator 02/13/20 20:00 119 02/13/20 20:00 30 02/13/20 20:00 98.9 100 14 109/68 (82) 100 02/13/20 18:44 115 16 30 02/13/20 17:06 120 15 30 02/13/20 16:00 123 02/13/20 16:00 30 02/13/20 16:00 97.9 124 14 116/75 (89) 100 02/13/20 16:00 Mechanical Ventilator 02/13/20 14:46 114 16 30 02/13/20 12:40 122 15 30 02/13/20 12:00 98.1 129 14 105/72 (83) 100 02/13/20 12:00 30 02/13/20 12:00 Mechanical Ventilator 02/13/20 11:41 129 02/13/20 10:57 125 18 30 02/13/20 09:22 130 103/71 02/13/20 09:12 130 18 30 02/13/20 08:00 98.9 130 14 103/71 (82) 100 02/13/20 08:00 30 02/13/20 08:00 Mechanical Ventilator 02/13/20 07:56 132 02/13/20 07:00 128 16 30 02/13/20 05:24 132 14 30 02/13/20 04:00 Mechanical Ventilator 02/13/20 04:00 98.5 126 17 114/77 (89) 100 02/13/20 04:00 30 02/13/20 03:35 122 8/19/20 03:00 121 15 30 ROS: unchanged from my note of 02/09/20 HEENT: Mechanically Ventilated, Thick Trach secretions RHYTHM: ST LUNGS: bilateral rhonchi CARDIAC: regular rhythm, normal S1 and S2, rapid rate, gallop/S4 ABDOMEN: normal bowel sounds, non tender, soft, no organomegaly, G-Tube intact EXTREMITIES: non-tender, no calf tenderness, No edema Assessment/Plan Assessment/Plan Severe sepsis Diarrhea with negative CD[facility] polymicrobial PNA Polymicrobial UTI Respiratory failure with trach Sinus tachycardia Paroxysmal atrial flutter Acute myocardial ischemia with elevated troponin levels and possible NSTEMI Hypovolemia/dehydration Moderate protein calorie malnutrition Acute on chronic respiratory acidosis Sinus node disease CRITICAL & GUARDED Vent support Replace fluid and electrolyte losses Abx Titrate beta mingo DVT prophylaxis Nutritional support by GTUbe Monitor acid-base parameters and adjust settings. Luis Felipe Sorto MD Feb 14, 2020 01:31
[2020-02-14 04:00] VITALS: BP 101/66
--- NOTE | 2020-02-14 04:00 | NUR ---
NURSE NOTES: pt restless despite all needs met. pt constantly removes gown, pulse oximetry, and IV's despite all needs met. provided distraction and reassurance.. no respiratory or cardiac distress noted.
[2020-02-14 05:20] LABS: BASOPHILS % (AUTO) 1.7 % (0.0-2.0); EOSINOPHILS % (AUTO) 3.1 % (0.0-3.0); HEMATOCRIT 28.8 % (37.0-47.0); HEMOGLOBIN 8.7 G/DL (12.0-16.0); LYMPHOCYTES % (AUTO) 14.3 % (20.0-45.0); MEAN CORPUSCULAR VOLUME 96 FL (80-99); MONOCYTES % (AUTO) 4.8 % (1.0-10.0); NEUTROPHILS % (AUTO) 76.1 % (45.0-75.0); PLATELET COUNT 285 K/UL (150-450); RED CELL DISTRIBUTION WIDTH 24.2 % (11.6-14.8); WHITE BLOOD COUNT 6.2 K/UL (4.8-10.8)
[2020-02-14 05:37] LABS: ALANINE AMINOTRANSFERASE 26 U/L (12-78); ALBUMIN 1.3 G/DL (3.4-5.0); ALBUMIN/GLOBULIN RATIO 0.2 (1.0-2.7); ALKALINE PHOSPHATASE 451 U/L (46-116); ANION GAP 7 mmol/L (5-15); ASPARTATE AMINO TRANSFERASE 69 U/L (15-37); BILIRUBIN,TOTAL 0.4 MG/DL (0.2-1.0); BLOOD UREA NITROGEN 17 mg/dL (7-18); CALCIUM 7.6 MG/DL (8.5-10.1); CARBON DIOXIDE 29 MMOL/L (21-32); CHLORIDE 114 MMOL/L (98-107); CREATININE 0.7 MG/DL (0.55-1.30); POTASSIUM 3.2 MMOL/L (3.5-5.1); SODIUM 150 MMOL/L (136-145)
[2020-02-14] MEDS: Vancomycin 750mg/NS 275ml IVPB SCH ×4 (06:30→18:08)
[2020-02-14] MEDS: Zosyn 3.375gm q8h **Extended infusion IVPB SCH ×2 (06:30)
--- NOTE | 2020-02-14 07:20 | NUR ---
NURSE HAND-OFF REPORT: Important Events on Shift: new cristobal catheter and left IV's inserted Patient Status: aggitated, restless despite all needs met Diet: Glucerna 1.2 Pending Orders: Pending Results/Labs: Pending MD notification: Latest Vital Signs: Temperature 98.0 , Pulse 122 , B/P 101 /66 , Respiratory Rate 14 , O2 SAT 100 , Mechanical Ventilator, O2 Flow Rate 15.0 . Vital Sign Comment: EKG Rhythm: Sinus Tachycardia Rhythm change?: N MD Notified?: - MD Response: Message left await call Latest Hope Fall Score: 50 Fall Risk: High Risk Safety Measures: Call light Within Reach, Bed Alarm Zone 2, Side Rails Side Rails x3, Bed position Low and Locked. Fall Precautions: Yellow Socks Yellow Gown Door Sign Patient Fall Education Report given to MAGI Hines.
--- NOTE | 2020-02-14 07:21 | NUR ---
NURSE NOTES: Received patient from MAGI Quevedo. Patient is aaox 1, tries to speak yet incomprehensible, on care mgr, and no acute distress. Patient appears disheveled and is constantly pulling on medical devices and picking at her skin. Shiley 8, AC 14, TV 550, Fio2 30%, PEEP of 5. G-tube is patent running Glucerna 1.2 at 60mL/hr for 20 hours until 0800. Feeding starts again at 12. IV on left thumb and left hand patent and no sign of infection. Patient has a sacral stage 4, healed, closed and dry. Bilateral heel redness with protection. Bed is at its lowest position, call light in reach and x3 bed rails are up. Will continue to monitor. Addendum: 02/14/20 at 1424 by Donny Bautista RN Wound Sacral stage 2 full thickness and bilateral heel redness.
[2020-02-14 08:00] VITALS: BP 98/65
--- NOTE | 2020-02-14 08:04 | General Progress Note ---
Assessment/Plan Assessment/Plan: diarrhea respiratory failure trach sinus tachycardia anemia wounds dermatitis bacteremia UTI MRSA and VRE colonized PLAN Cdif negative; antidiarrheal agents; gi eval iv antibiotics ID noted IV hydration wound care all consultants appreciated remains ill repeat CXR and consider CT chest monitor heart rate/ still high/ d/w cards continue to monitor impression, plan, and exam edited and reviewed in detail care discussed with RN Subjective Allergies: Coded Allergies: No Known Allergies (Unverified , 02/09/20) Subjective JAMES care reviewed still tachycardic cards noted Objective Last 24 Hour Vital Signs Date Time Temp Pulse Resp B/P (MAP) Pulse Ox O2 Delivery O2 Flow Rate FiO2 02/14/20 04:35 122 14 30 02/14/20 04:00 98.0 100 21 101/66 (78) 100 02/14/20 04:00 Mechanical Ventilator 02/14/20 04:00 118 02/14/20 04:00 30 02/14/20 02:36 120 20 30 02/14/20 00:57 122 19 30 02/14/20 00:00 115 02/14/20 00:00 98.6 113 22 122/65 (84) 100 02/14/20 00:00 30 02/14/20 00:00 Mechanical Ventilator 02/13/20 23:00 118 22 30 02/13/20 20:38 98 109/68 02/13/20 20:35 121 16 30 02/13/20 20:00 Mechanical Ventilator 02/13/20 20:00 119 02/13/20 20:00 30 02/13/20 20:00 98.9 100 14 109/68 (82) 100 02/13/20 18:44 115 16 30 02/13/20 17:06 120 15 30 02/13/20 16:00 123 02/13/20 16:00 30 02/13/20 16:00 97.9 124 14 116/75 (89) 100 02/13/20 16:00 Mechanical Ventilator 02/13/20 14:46 114 16 30 02/13/20 12:40 122 15 30 02/13/20 12:00 98.1 129 14 105/72 (83) 100 02/13/20 12:00 30 02/13/20 12:00 Mechanical Ventilator 02/13/20 11:41 129 02/13/20 10:57 125 18 30 02/13/20 09:22 130 103/71 02/13/20 09:12 130 18 30 Intake and Output 02/13/20 02/14/20 19:00 07:00 Intake Total 719.167 ml 1222.791 ml Output Total 550 ml Balance 169.167 ml 1222.791 ml Intake Free Water 120 ml IV Total 119.167 ml 502.791 ml Tube Feeding 480 ml 720 ml Output Urine Total 400 ml Stool Total 150 ml Laboratory Tests 02/14/20 03:45: White Blood Count 6.2, Red Blood Count 3.00L, Hemoglobin 8.7L, Hematocrit 28.8L , Mean Corpuscular Volume 96, Mean Corpuscular Hemoglobin 29.0, Mean Corpuscular Hemoglobin Concent 30.2L, Red Cell Distribution Width 24.2H, Platelet Count 285, Mean Platelet Volume 6.2L, Neutrophils (%) (Auto) 76.1H, Lymphocytes (%) (Auto) 14.3L, Monocytes (%) (Auto) 4.8, Eosinophils (%) (Auto) 3.1H, Basophils (%) (Auto) 1.7, Sodium Level 150H, Potassium Level 3.2L, Chloride Level 114H, Carbon Dioxide Level 29, Anion Gap 7, Blood Urea Nitrogen 17, Creatinine 0.7, Estimat Glomerular Filtration Rate > 60, Glucose Level 175H , Calcium Level 7.6L, Magnesium Level 1.8, Total Bilirubin 0.4, Aspartate Amino Transf (AST/SGOT) 69H, Alanine Aminotransferase (ALT/SGPT) 26, Alkaline Phosphatase 451H, Troponin I 0.154H, Pro-B-Type Natriuretic Peptide 35465V, Total Protein 7.2, Albumin 1.3L, Globulin 5.9, Albumin/Globulin Ratio 0.2L Height (Feet): 5 Height (Inches): 3.00 Weight (Pounds): 141 Objective WDWN NAD trach clear breath sounds bilaterally without rhonchi or wheeze [id number] without MRG NABS nontender GT no CCE nonfocal chronic rash Stevenson Medina MD Feb 14, 2020 08:04
--- NOTE | 2020-02-14 08:06 | NUR ---
NURSE NOTES: X-ray tech at bedside.
--- NOTE | 2020-02-14 08:41 | NUR ---
RD ASSESSMENT & RECOMMENDATIONS SEE CARE ACTIVITY FOR COMPLETE ASSESSMENT DAILY ESTIMATED NEEDS: Needs based on Wound, critical care 52.3kg abw 25-30 kcals/kg 5119-7214 total kcals 1.25-2 g protein/kg 65-105 g total protein 25-30 mL/kg 6302-2760 total fluid mLs NUTRITION DIAGNOSIS: Increased kcal and pro needs r/t wound healing as evidenced by pt w/multiple full thickness wounds, refer to wound care eval, pt is bedbound trach and peg dep. CURRENT TF: Glucerna 1.2 @60ml/hr x20 hrs ENTERAL NUTRITION RECOMMENDATIONS: Maintain Glucerna 1.2 w/ goal of 60ml/hr x20 hrs to provide 1200ml, 1440 kcal, 72g pro, 966ml free H2O - Maintain current TF rate to meet 100% est needs - Rec added PROSOURCE 1 pack daily (11g pro) to better meet est pro needs - Flush per MD. HOB over 30 degrees ADDITIONAL RECOMMENDATIONS: 1) Wound care: add GT BID + Vit C 250mg BID 2) Per SNF: 61 inches (5'1") and last wt 145 lbs/65.91kg Maintain calibrated bed scale wts w/ added P200 mattress 3) Rec NISS + accuchecks for improved BG 4) Replete lytes w/ diarrhea (K 3.2) -> add water flushes vs added D5% for elev Na (150).
[2020-02-14] MEDS: Heparin 5000 units/ml inj SUBQ SCH ×2 (09:00→20:46)
[2020-02-14] MEDS: Metoprolol Tartrate 50mg tab GT SCH ×2 (09:00→20:18)
--- NOTE | 2020-02-14 09:00 | General Progress Note ---
Assessment/Plan Assessment/Plan: Assessment - Diarrhea - improving - Resp failure - s/p trach - dysphagia - s/p PEG Recommendations - continue TF - GT care - elevate HOB - monitor stool output Subjective Allergies: Coded Allergies: No Known Allergies (Unverified , 02/09/20) Subjective above noted no events overnight reduced BM output noted Objective Last 24 Hour Vital Signs Date Time Temp Pulse Resp B/P (MAP) Pulse Ox O2 Delivery O2 Flow Rate FiO2 02/14/20 04:35 122 14 30 02/14/20 04:00 98.0 100 21 101/66 (78) 100 02/14/20 04:00 Mechanical Ventilator 02/14/20 04:00 118 02/14/20 04:00 30 02/14/20 02:36 120 20 30 02/14/20 00:57 122 19 30 02/14/20 00:00 115 02/14/20 00:00 98.6 113 22 122/65 (84) 100 02/14/20 00:00 30 02/14/20 00:00 Mechanical Ventilator 02/13/20 23:00 118 22 30 02/13/20 20:38 98 109/68 02/13/20 20:35 121 16 30 02/13/20 20:00 Mechanical Ventilator 02/13/20 20:00 119 02/13/20 20:00 30 02/13/20 20:00 98.9 100 14 109/68 (82) 100 02/13/20 18:44 115 16 30 02/13/20 17:06 120 15 30 02/13/20 16:00 123 02/13/20 16:00 30 02/13/20 16:00 97.9 124 14 116/75 (89) 100 02/13/20 16:00 Mechanical Ventilator 02/13/20 14:46 114 16 30 02/13/20 12:40 122 15 30 02/13/20 12:00 98.1 129 14 105/72 (83) 100 02/13/20 12:00 30 02/13/20 12:00 Mechanical Ventilator 02/13/20 11:41 129 02/13/20 10:57 125 18 30 02/13/20 09:22 130 103/71 02/13/20 09:12 130 18 30 Intake and Output 02/13/20 02/14/20 19:00 07:00 Intake Total 719.167 ml 1222.791 ml Output Total 550 ml 250 ml Balance 169.167 ml 972.791 ml Intake Free Water 120 ml IV Total 119.167 ml 502.791 ml Tube Feeding 480 ml 720 ml Output Urine Total 400 ml 250 ml Stool Total 150 ml Laboratory Tests 02/14/20 03:45: White Blood Count 6.2, Red Blood Count 3.00L, Hemoglobin 8.7L, Hematocrit 28.8L , Mean Corpuscular Volume 96, Mean Corpuscular Hemoglobin 29.0, Mean Corpuscular Hemoglobin Concent 30.2L, Red Cell Distribution Width 24.2H, Platelet Count 285, Mean Platelet Volume 6.2L, Neutrophils (%) (Auto) 76.1H, Lymphocytes (%) (Auto) 14.3L, Monocytes (%) (Auto) 4.8, Eosinophils (%) (Auto) 3.1H, Basophils (%) (Auto) 1.7, Sodium Level 150H, Potassium Level 3.2L, Chloride Level 114H, Carbon Dioxide Level 29, Anion Gap 7, Blood Urea Nitrogen 17, Creatinine 0.7, Estimat Glomerular Filtration Rate > 60, Glucose Level 175H , Calcium Level 7.6L, Magnesium Level 1.8, Total Bilirubin 0.4, Aspartate Amino Transf (AST/SGOT) 69H, Alanine Aminotransferase (ALT/SGPT) 26, Alkaline Phosphatase 451H, Troponin I 0.154H, Pro-B-Type Natriuretic Peptide 04551U, Total Protein 7.2, Albumin 1.3L, Globulin 5.9, Albumin/Globulin Ratio 0.2L Height (Feet): 5 Height (Inches): 3.00 Weight (Pounds): 141 Objective debilitated AA woman NCAT (++) viteligo supple, (+) trach CTA RRR abd soft ND NT, (+) GT no edema Priti Sequeira MD Feb 14, 2020 09:00
[2020-02-14] MEDS: Ascorbic Acid 500mg tab ORAL SCH ×2 (09:06→18:09)
[2020-02-14] MEDS: Colistin for inhalation INH SCH ×2 (10:00→22:17)
--- NOTE | 2020-02-14 10:11 | Infectious Diseases Prog Note ---
Assessment/Plan Assessment/Plan A: 1. Acinetobacter pneumonia, COVID-19 rapid test was negative. 2. Respiratory failure, status post tracheostomy. 3. Urinary tract infection with ESBL E. coli & Proteus 4. MRSA sepsis 5. Sinus tachycardia PLAN: 1. Continue IV vancomycin and Colitis inhaler 2. Change Zosyn to Unasyn 2. We will follow up cultures Subjective ROS Limited/Unobtainable: Yes Respiratory: Denies: dry cough, productive cough Cardiovascular: Reports: palpitations Allergies: Coded Allergies: No Known Allergies (Unverified , 02/09/20) Objective Last 24 Hour Vital Signs Date Time Temp Pulse Resp B/P (MAP) Pulse Ox O2 Delivery O2 Flow Rate FiO2 02/14/20 09:00 124 98/65 02/14/20 04:35 122 14 30 02/14/20 04:00 98.0 100 21 101/66 (78) 100 02/14/20 04:00 Mechanical Ventilator 02/14/20 04:00 118 02/14/20 04:00 30 02/14/20 02:36 120 20 30 02/14/20 00:57 122 19 30 02/14/20 00:00 115 02/14/20 00:00 98.6 113 22 122/65 (84) 100 02/14/20 00:00 30 02/14/20 00:00 Mechanical Ventilator 02/13/20 23:00 118 22 30 02/13/20 20:38 98 109/68 02/13/20 20:35 121 16 30 02/13/20 20:00 Mechanical Ventilator 02/13/20 20:00 119 02/13/20 20:00 30 02/13/20 20:00 98.9 100 14 109/68 (82) 100 02/13/20 18:44 115 16 30 02/13/20 17:06 120 15 30 02/13/20 16:00 123 02/13/20 16:00 30 02/13/20 16:00 97.9 124 14 116/75 (89) 100 02/13/20 16:00 Mechanical Ventilator 02/13/20 14:46 114 16 30 02/13/20 12:40 122 15 30 02/13/20 12:00 98.1 129 14 105/72 (83) 100 02/13/20 12:00 30 8/19/20 12:00 Mechanical Ventilator 02/13/20 11:41 129 02/13/20 10:57 125 18 30 Height (Feet): 5 Height (Inches): 3.00 Weight (Pounds): 141 HEENT: status post trach Respiratory/Chest: lungs clear, other - on ventilator Cardiovascular: tachycardia Abdomen: soft, non tender, other - GT feeding Extremities: no edema Neurologic/Psychiatric: alert, responsive Laboratory Tests Test 02/14/20 03:45 White Blood Count 6.2 K/UL (4.8-10.8) Red Blood Count 3.00 M/UL (4.20-5.40) L Hemoglobin 8.7 G/DL (12.0-16.0) L Hematocrit 28.8 % (37.0-47.0) L Mean Corpuscular Volume 96 FL (80-99) Mean Corpuscular Hemoglobin 29.0 PG (27.0-31.0) Mean Corpuscular Hemoglobin Concent 30.2 G/DL (32.0-36.0) L Red Cell Distribution Width 24.2 % (11.6-14.8) H Platelet Count 285 K/UL (150-450) Mean Platelet Volume 6.2 FL (6.5-10.1) L Neutrophils (%) (Auto) 76.1 % (45.0-75.0) H Lymphocytes (%) (Auto) 14.3 % (20.0-45.0) L Monocytes (%) (Auto) 4.8 % (1.0-10.0) Eosinophils (%) (Auto) 3.1 % (0.0-3.0) H Basophils (%) (Auto) 1.7 % (0.0-2.0) Sodium Level 150 MMOL/L (136-145) H Potassium Level 3.2 MMOL/L (3.5-5.1) L Chloride Level 114 MMOL/L (98-107) H Carbon Dioxide Level 29 MMOL/L (21-32) Anion Gap 7 mmol/L (5-15) Blood Urea Nitrogen 17 mg/dL (7-18) Creatinine 0.7 MG/DL (0.55-1.30) Estimat Glomerular Filtration Rate > 60 mL/min (>60) Glucose Level 175 MG/DL (74-106) H Calcium Level 7.6 MG/DL (8.5-10.1) L Magnesium Level 1.8 MG/DL (1.8-2.4) Total Bilirubin 0.4 MG/DL (0.2-1.0) Aspartate Amino Transf (AST/SGOT) 69 U/L (15-37) H Alanine Aminotransferase (ALT/SGPT) 26 U/L (12-78) Alkaline Phosphatase 451 U/L (46-116) H Troponin I 0.154 ng/mL (0.000-0.056) Pro-B-Type Natriuretic Peptide 22209 pg/mL (0-125) H Total Protein 7.2 G/DL (6.4-8.2) Albumin 1.3 G/DL (3.4-5.0) L Globulin 5.9 g/dL Albumin/Globulin Ratio 0.2 (1.0-2.7) L Current Medications Medications (Trade) Dose Ordered Sig/Lucy Route PRN Reason Start Time Stop Time Status Last Admin Dose Admin Acetaminophen (Tylenol) 650 mg Q4H PRN GT Mild Pain (Pain Scale 1-3) 02/09/20 10:30 03/10/20 10:29 02/13/20 21:00 Ascorbic Acid (Vitamin C) 250 mg TWICE A DAY ORAL 02/11/20 18:00 03/12/20 17:59 02/14/20 09:06 Clonidine HCl (Catapres Tab) 0.1 mg Q4H PRN GT For High Blood Pressure 02/09/20 13:45 05/09/20 13:44 Colistimethate Sodium (Colistin *inhalation use only*) 75 mg Q12HR@,22 INH 02/13/20 15:00 02/20/20 14:59 Diphenhydramine HCl (Benadryl) 25 mg Q6H PRN GT ITCHING 02/09/20 10:30 03/10/20 10:29 02/12/20 17:26 Diphenoxylate HCl/ Atropine (Lomotil) 2.5 mg Q6H PRN GT Diarrhea 02/13/20 11:00 03/14/20 10:59 Famotidine (Pepcid) 20 mg TWICE A DAY GT 02/09/20 11:00 05/09/20 10:59 02/14/20 09:06 Heparin Sodium (Porcine) (Heparin 5000 units/ml) 5,000 units EVERY 12 HOURS SUBQ 02/09/20 21:00 03/25/20 20:59 02/13/20 21:02 Lansoprazole (Prevacid) 30 mg DAILY GT 02/10/20 09:00 03/11/20 08:59 02/14/20 09:06 Levothyroxine Sodium (Synthroid) 75 mcg DAILY GT 02/12/20 09:00 03/11/20 08:59 02/14/20 09:06 Metoprolol Tartrate (Lopressor) 50 mg EVERY 12 HOURS GT 02/14/20 09:00 05/14/20 08:59 Piperacillin Sod/ Tazobactam Sod 3.375 gm/Sodium Chloride 110 ml @ 27.5 mls/hr EVERY 8 HOURS IVPB 02/09/20 14:00 02/16/20 13:59 02/14/20 06:30 Vancomycin HCl (Vanco pharmacy to dose) 1 ea DAILY PRN MISC Per rx protocol 02/09/20 10:30 03/10/20 10:29 Vancomycin HCl 750 mg/Sodium Chloride 275 ml @ 183.333 mls/hr Q12HR@0600,1800 IVPB 02/09/20 18:00 02/16/20 17:59 02/14/20 06:30 Arnoldo West MD Feb 14, 2020 10:11
--- NOTE | 2020-02-14 10:16 | NUR ---
CASE MANAGEMENT: REVIEW SI: TACHYARRHYTHMIA . ELEVATED TROPONIN I . UTI . PNA T 98.6 HR 124 RR 14 BP 98/65 SAT 100% MECH VENT FIO2 30 H/H 8.7/28.8 NA 150 K 3.2 TROP I 0.154 IS: UNASYN IV Q6HR COLISTIN INH ZOSYN IV Q8HR VANCOMYCIN IV Q12HR LOPRESSOR 50MG GT Q12HR STEP DOWN UNIT STATUS DCP: PATIENT IS FROM [facility]
--- NOTE | 2020-02-14 11:11 | Diagnostic Imaging Report ---
Indication: Reason For Exam: ABN CHST Technique: Single AP view of the chest. Comparison: Chest radiograph dated 02/10/2020 Findings: The cardiomediastinal silhouette is unchanged. No significant change in bilateral diffuse severe airspace disease. No increasing pleural effusion. No pneumothorax. Unchanged cannulated tracheostomy. IMPRESSION: No significant change from prior examination.
[2020-02-14] MEDS: DiphenhydrAMINE 25mg/10ml Elixir GT PRN ×2 (11:42→22:50)
[2020-02-14 12:00] VITALS: BP 104/75
[2020-02-14] MEDS: Ampicillin/Sulbactam Sod 3 GM in NS 110 ML IVPB SCH ×3 (12:55→23:31)
--- NOTE | 2020-02-14 13:58 | NUR ---
NURSE NOTES: Received patient from MAGI Quevedo. 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 Patient appears disheveled and is constantly pulling on medical devices and picking at her skin. Shiley 8, AC 14, TV 550, Fio2 30%, PEEP of 5. G-tube is patent running Glucerna 1.2 at 60mL/hr for 20 hours until 0800. Feeding starts again at 12. IV on left thumb and left hand patent and no sign of infection. Patient has a sacral stage 4, healed, closed and dry. Bilateral heel redness with protection. Bed is at its lowest position, call light in reach and x3 bed rails are up. Will continue to monitor. Addendum: 02/14/20 at 1422 by Donny Bautista RN Wrong time
[2020-02-14 16:00] VITALS: BP 103/62
--- NOTE | 2020-02-14 16:17 | Surgery Progress Note ---
Surgery Progress Note Subjective Additional Comments leukocytosis improved labs noted exam stable comfortable no n/v/f/c Objective Last 24 Hour Vital Signs Date Time Temp Pulse Resp B/P (MAP) Pulse Ox O2 Delivery O2 Flow Rate FiO2 02/14/20 15:30 113 18 30 02/14/20 14:05 127 15 30 02/14/20 12:00 30 02/14/20 12:00 98.0 113 15 104/75 (85) 100 02/14/20 12:00 Mechanical Ventilator 02/14/20 11:55 117 02/14/20 11:02 117 22 30 02/14/20 09:00 124 98/65 02/14/20 08:55 122 18 30 02/14/20 08:10 114 02/14/20 08:00 Mechanical Ventilator 02/14/20 08:00 97.9 124 14 98/65 (76) 100 02/14/20 08:00 30 02/14/20 07:22 121 15 30 02/14/20 04:35 122 14 30 02/14/20 04:00 98.0 100 21 101/66 (78) 100 02/14/20 04:00 Mechanical Ventilator 02/14/20 04:00 118 02/14/20 04:00 30 02/14/20 02:36 120 20 30 02/14/20 00:57 122 19 30 02/14/20 00:00 115 02/14/20 00:00 98.6 113 22 122/65 (84) 100 02/14/20 00:00 30 02/14/20 00:00 Mechanical Ventilator 02/13/20 23:00 118 22 30 02/13/20 20:38 98 109/68 02/13/20 20:35 121 16 30 02/13/20 20:00 Mechanical Ventilator 02/13/20 20:00 119 02/13/20 20:00 30 02/13/20 20:00 98.9 100 14 109/68 (82) 100 02/13/20 18:44 115 16 30 02/13/20 17:06 120 15 30 I&O Intake and Output 02/13/20 02/14/20 19:00 07:00 Intake Total 719.167 ml 1222.791 ml Output Total 550 ml 250 ml Balance 169.167 ml 972.791 ml Intake Free Water 120 ml IV Total 119.167 ml 502.791 ml Tube Feeding 480 ml 720 ml Output Urine Total 400 ml 250 ml Stool Total 150 ml Dressing: other Wound: other Cardiovascular: RSR Respiratory: decreased breath sounds Abdomen: soft, non-tender, present bowel sounds Extremities: no cyanosis Laboratory Tests Test 02/14/20 03:45 White Blood Count 6.2 K/UL (4.8-10.8) Red Blood Count 3.00 M/UL (4.20-5.40) L Hemoglobin 8.7 G/DL (12.0-16.0) L Hematocrit 28.8 % (37.0-47.0) L Mean Corpuscular Volume 96 FL (80-99) Mean Corpuscular Hemoglobin 29.0 PG (27.0-31.0) Mean Corpuscular Hemoglobin Concent 30.2 G/DL (32.0-36.0) L Red Cell Distribution Width 24.2 % (11.6-14.8) H Platelet Count 285 K/UL (150-450) Mean Platelet Volume 6.2 FL (6.5-10.1) L Neutrophils (%) (Auto) 76.1 % (45.0-75.0) H Lymphocytes (%) (Auto) 14.3 % (20.0-45.0) L Monocytes (%) (Auto) 4.8 % (1.0-10.0) Eosinophils (%) (Auto) 3.1 % (0.0-3.0) H Basophils (%) (Auto) 1.7 % (0.0-2.0) Sodium Level 150 MMOL/L (136-145) H Potassium Level 3.2 MMOL/L (3.5-5.1) L Chloride Level 114 MMOL/L (98-107) H Carbon Dioxide Level 29 MMOL/L (21-32) Anion Gap 7 mmol/L (5-15) Blood Urea Nitrogen 17 mg/dL (7-18) Creatinine 0.7 MG/DL (0.55-1.30) Estimat Glomerular Filtration Rate > 60 mL/min (>60) Glucose Level 175 MG/DL (74-106) H Calcium Level 7.6 MG/DL (8.5-10.1) L Magnesium Level 1.8 MG/DL (1.8-2.4) Total Bilirubin 0.4 MG/DL (0.2-1.0) Aspartate Amino Transf (AST/SGOT) 69 U/L (15-37) H Alanine Aminotransferase (ALT/SGPT) 26 U/L (12-78) Alkaline Phosphatase 451 U/L (46-116) H Troponin I 0.154 ng/mL (0.000-0.056) Pro-B-Type Natriuretic Peptide 25363 pg/mL (0-125) H Total Protein 7.2 G/DL (6.4-8.2) Albumin 1.3 G/DL (3.4-5.0) L Globulin 5.9 g/dL Albumin/Globulin Ratio 0.2 (1.0-2.7) L Plan Problems: (1) Sepsis Assessment & Plan: Leukocytosis, anemia, lactic acidosis sepsis uro uti likely wounds noted and stable unlikely etiology nutritional optimization tf as tolerated vent support cxr noted DAILY ESTIMATED NEEDS: Needs based on Wound, critical care 52.3kg abw 25-30 kcals/kg 1714-2443 total kcals 1.25-2 g protein/kg 65-105 g total protein 25-30 mL/kg 6581-1172 total fluid mLs NUTRITION DIAGNOSIS: Increased kcal and pro needs r/t wound healing as evidenced by pt w/multiple full thickness wounds, refer to wound care eval, pt is bedbound trach and peg dep. CURRENT TF: Glucerna 1.2 @60ml/hr x20 hrs ENTERAL NUTRITION RECOMMENDATIONS: Maintain Glucerna 1.2 w/ goal of 60ml/hr x20 hrs to provide 1200ml, 1440 kcal, 72g pro, 966ml free H2O - Maintain current TF rate to meet 100% est needs - Rec added PROSOURCE 1 pack daily (11g pro) to better meet est pro needs - Flush per HOB over 30 degrees ADDITIONAL RECOMMENDATIONS: 1) Wound care: add GT BID + Vit C 250mg BID 2) Per SNF: 61 inches (5'1") and last wt 145 lbs/65.91kg Maintain calibrated bed scale wts w/ added P200 mattress 3) Rec NISS + accuchecks for improved BG (2) UTI (urinary tract infection) (3) Pneumonia (4) Decubitus skin ulcer Assessment & Plan: Pt presented on admission with Pressure Injuries, Tracheostomy,Alopecia, Generalized Hypopigmented Skin plaques. Few plaques noted to be open lesions but are pink and dry. Skin assessed under collar of trach and no areas of skin breakdown noted. Full thickness Pressure injury noted to R Buttocks(L)5.7cm x (W)1.7cm x (D) 0.3cm. Base of wound is 90% beefy-red,10% slough. Borders are macerated . surrounding dry skin with hypopigmented plaques. Full thickness Pressure injury L Buttocks(L)4.6cm x (W)4.5cm. Base of wound has clusters wounds with intertwining bridges. Wounds have mixed slough and jack appearances. Small amt serous exudate noted. Surrounding dry hypopigmented skin plaques. Proximally and in close proximity skin is denuded. Small pustule with surrounding erythema noted L Hallux(L)0.5cm x (W)0.6cm. NO changes in skin temp periwound. An area of hyperpigmentation from previous wound noted to medial/posterior R Heel. L Heel is otherwise boggy with non-blanching erythema. Reabsorbed DTPI L Heel(L)2.2cm x (W)2cm. Dry brown eschar at base of wound. NO erythema or fluctuance periwound. Unstageable Pressure injury L lateral Malleolus(L)0.7cm x (W)0.9cm. Base of wound has 100% slough.edges dry and adherent to base of wound. No erythema, induration,or fluctuance periwound. Tx.Plan: Cleanse wounds R and L Buttocks with Saline. Apply Therahoney to wounds. Apply Moisture Barrier Paste Periwound. Cover with Optifoam drsg Daily and prn. Apply Betadine to wound R Hallux. Cover with Optifoam drsg every 3 days and prn. Apply Betadine to L lateral Malleolus. Cover with Optifoam drsg. Change every 3 days and prn. Apply Cavilon Skin Barrier to both heels. Cover each heel with Optifoam drsg. Change every 7 days and prn. Reposition at least every 2hours or as tolerated. Off-load heels with pillow. APM/ELIDIA Mattress overlay. Zia Chung Feb 14, 2020 16:17
--- NOTE | 2020-02-14 17:36 | NUR ---
NURSE NOTES: Patient on ventilator,has been scratching chest arms-skin dry with white skin pigmentation all over body,primary nurse Donny and myself,nurses rach Carroll has been watching patient,pulling G tube,and tracheostomy,pulled out IV,place mittens but keep on taking it out,notified Dr. Medina-patient needs restraints,hard stick,pulled out IV-for antibiotics ,prevent pulling G tube for feeding,need tracheostomy to ventilator
[2020-02-14] MEDS ORDERED: dilTIAZem HCl 25mg/5ml Inj IVP SCH (18:30)
--- NOTE | 2020-02-14 19:09 | NUR ---
NURSE HAND-OFF REPORT: Important Events on Shift:Patient is restless and pulled put both IV line. Patient Status: Stable, Full code Diet: Glucerna 1.2 Pending Orders: N/A Pending Results/Labs:N/AN/A Pending MD notification:N/A Latest Vital Signs: Temperature 97.5 , Pulse 118 , B/P 103 /62 , Respiratory Rate 26 , O2 SAT 100 , Mechanical Ventilator, O2 Flow Rate 15.0 . Vital Sign Comment: stable EKG Rhythm: Sinus Tachycardia Rhythm change?: N MD Notified?: - MD Response: Message left await call Latest Hope Fall Score: 50 Fall Risk: High Risk Safety Measures: Call light Within Reach, Bed Alarm Zone 2, Side Rails Side Rails x3, Bed position Low and Locked. Fall Precautions: Yellow Socks Yellow Gown Door Sign Patient Fall Education Report given to MAGI Nieto.
--- NOTE | 2020-02-14 19:10 | NUR ---
NURSE NOTES: Pt report received from Donny SOW. pt appears stable. pt is alert and oriented 1, no change to neuro mentation. pt is trach vented, satting 98% O2, no acute resp distress noted. 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 bed is low, locked, armed, call light within reach, bed rails up times 3. will follow plan of care.
[2020-02-14 20:00] VITALS: BP 109/58
--- NOTE | 2020-02-14 22:00 | NUR ---
NURSE NOTES: Pt repositioned and cleaned, wound care followed as doctor ordered.
[2020-02-15] VITALS: BP 103/64
--- NOTE | 2020-02-15 01:00 | NUR ---
NURSE NOTES: repositioned and cleaned pt. Pt IV access assessed. bed linens changed.
--- NOTE | 2020-02-15 02:15 | Cardiology Progress Note ---
Subjective DATE OF SERVICE: Feb 14, 2020 On vent support Monitor: sinus tachycardia persists. Episodes of rapid atrial flutter noted as well - slowed with IV diltiazem. Troponin still elevated - but in low range without significant progression Has moderate secretions from trach. Still with diarrhea but decreasing - CDiff toxin negative Venous Duplex negative for DVT Objective Last 24 Hour Vital Signs Date Time Temp Pulse Resp B/P (MAP) Pulse Ox O2 Delivery O2 Flow Rate FiO2 02/15/20 00:00 116 02/15/20 00:00 30 02/15/20 00:00 97.7 113 20 103/64 (77) 99 02/15/20 00:00 Mechanical Ventilator 02/14/20 21:40 100 15 100 Mechanical Ventilator 30 113 15 30 02/14/20 20:18 112 87/69 02/14/20 20:00 98.7 99 20 109/58 (75) 100 02/14/20 20:00 30 02/14/20 20:00 Mechanical Ventilator 02/14/20 19:26 119 02/14/20 19:10 114 20 30 02/14/20 18:24 118 103/62 02/14/20 17:10 115 26 30 02/14/20 16:00 116 02/14/20 16:00 30 02/14/20 16:00 Mechanical Ventilator 02/14/20 16:00 97.5 118 18 103/62 (76) 100 02/14/20 15:30 113 18 30 02/14/20 14:05 127 15 30 02/14/20 14:00 115 20 100 Mechanical Ventilator 30 02/14/20 12:00 30 02/14/20 12:00 98.0 113 15 104/75 (85) 100 02/14/20 12:00 Mechanical Ventilator 02/14/20 11:55 117 02/14/20 11:02 117 22 30 02/14/20 09:00 124 98/65 02/14/20 08:55 122 18 30 02/14/20 08:10 114 02/14/20 08:00 Mechanical Ventilator 02/14/20 08:00 97.9 124 14 98/65 (76) 100 02/14/20 08:00 30 02/14/20 07:22 121 15 30 02/14/20 04:35 122 14 30 02/14/20 04:00 98.0 100 21 101/66 (78) 100 02/14/20 04:00 Mechanical Ventilator 02/14/20 04:00 118 02/14/20 04:00 30 02/14/20 02:36 120 20 30 ROS: unchanged from my note of 02/09/20 HEENT: Mechanically Ventilated, Thick Trach secretions RHYTHM: ST LUNGS: bilateral rhonchi CARDIAC: regular rhythm, normal S1 and S2, rapid rate, gallop/S4 ABDOMEN: normal bowel sounds, non tender, soft, no organomegaly, G-Tube intact EXTREMITIES: non-tender, no calf tenderness, No edema Laboratory Tests Test 02/14/20 03:45 White Blood Count 6.2 K/UL (4.8-10.8) Red Blood Count 3.00 M/UL (4.20-5.40) L Hemoglobin 8.7 G/DL (12.0-16.0) L Hematocrit 28.8 % (37.0-47.0) L Mean Corpuscular Volume 96 FL (80-99) Mean Corpuscular Hemoglobin 29.0 PG (27.0-31.0) Mean Corpuscular Hemoglobin Concent 30.2 G/DL (32.0-36.0) L Red Cell Distribution Width 24.2 % (11.6-14.8) H Platelet Count 285 K/UL (150-450) Mean Platelet Volume 6.2 FL (6.5-10.1) L Neutrophils (%) (Auto) 76.1 % (45.0-75.0) H Lymphocytes (%) (Auto) 14.3 % (20.0-45.0) L Monocytes (%) (Auto) 4.8 % (1.0-10.0) Eosinophils (%) (Auto) 3.1 % (0.0-3.0) H Basophils (%) (Auto) 1.7 % (0.0-2.0) Sodium Level 150 MMOL/L (136-145) H Potassium Level 3.2 MMOL/L (3.5-5.1) L Chloride Level 114 MMOL/L (98-107) H Carbon Dioxide Level 29 MMOL/L (21-32) Anion Gap 7 mmol/L (5-15) Blood Urea Nitrogen 17 mg/dL (7-18) Creatinine 0.7 MG/DL (0.55-1.30) Estimat Glomerular Filtration Rate > 60 mL/min (>60) Glucose Level 175 MG/DL (74-106) H Calcium Level 7.6 MG/DL (8.5-10.1) L Magnesium Level 1.8 MG/DL (1.8-2.4) Total Bilirubin 0.4 MG/DL (0.2-1.0) Aspartate Amino Transf (AST/SGOT) 69 U/L (15-37) H Alanine Aminotransferase (ALT/SGPT) 26 U/L (12-78) Alkaline Phosphatase 451 U/L (46-116) H Troponin I 0.154 ng/mL (0.000-0.056) Pro-B-Type Natriuretic Peptide 77095 pg/mL (0-125) H Total Protein 7.2 G/DL (6.4-8.2) Albumin 1.3 G/DL (3.4-5.0) L Globulin 5.9 g/dL Albumin/Globulin Ratio 0.2 (1.0-2.7) L Assessment/Plan Assessment/Plan Severe sepsis Diarrhea with negative CDiff [employer] [facility] polymicrobial PNA Polymicrobial UTI Respiratory failure with trach Sinus tachycardia Paroxysmal atrial flutter Acute myocardial ischemia with elevated troponin levels and possible NSTEMI Hypovolemia/dehydration Moderate protein calorie malnutrition Acute on chronic respiratory acidosis Sinus node disease CRITICAL & GUARDED Vent support Replace fluid and electrolyte losses Abx Titrate beta mingo; add diltiazem DVT prophylaxis Nutritional support by GTUbe Monitor acid-base parameters and adjust settings. Luis Felipe Sorto MD Feb 15, 2020 02:15
--- NOTE | 2020-02-15 03:00 | NUR ---
NURSE NOTES: Pt EKG done. filed in pts chart.
[2020-02-15 04:00] VITALS: BP 94/71
[2020-02-15] MEDS: Ampicillin/Sulbactam Sod 3 GM in NS 110 ML IVPB SCH ×4 (06:12→23:54)
[2020-02-15] MEDS: Vancomycin 750mg/NS 275ml IVPB SCH ×4 (06:46→18:16)
--- NOTE | 2020-02-15 07:20 | NUR ---
NURSE HAND-OFF REPORT: Important Events on Shift:NA Patient Status: STABLE Diet: TUBE FEEDING Pending Orders: NA Pending Results/Labs: TROP, Sodium Pending MD notification: LABS Latest Vital Signs: Temperature 98.5 , Pulse 120 , B/P 94 /71 , Respiratory Rate 18 , O2 SAT 99 , Mechanical Ventilator, O2 Flow Rate 15.0 . Vital Sign Comment: EKG Rhythm: Sinus Tachycardia Rhythm change?: N MD Notified?: - MD Response: Message left await call Latest Hope Fall Score: 50 Fall Risk: High Risk Safety Measures: Call light Within Reach, Bed Alarm Zone 2, Side Rails Side Rails x3, Bed position Low and Locked. Fall Precautions: Yellow Socks Yellow Gown Door Sign Patient Fall Education Report given to MAGALIS SOW.
[2020-02-15 08:00] VITALS: BP 84/59
--- NOTE | 2020-02-15 08:16 | General Progress Note ---
Assessment/Plan Assessment/Plan: diarrhea respiratory failure trach sinus tachycardia anemia wounds dermatitis bacteremia UTI MRSA and VRE colonized PLAN antidiarrheal agents; gi eval iv antibiotics ID noted IV hydration wound care all consultants appreciated remains ill repeat CXR and consider CT chest monitor heart rate/ still high/ d/w cards continue to monitor and remains ill impression, plan, and exam edited and reviewed in detail care discussed with RN Subjective ROS Limited/Unobtainable: Yes Allergies: Coded Allergies: No Known Allergies (Unverified , 02/09/20) Subjective JAMES care reviewed still tachycardic cards noted Objective Last 24 Hour Vital Signs Date Time Temp Pulse Resp B/P (MAP) Pulse Ox O2 Delivery O2 Flow Rate FiO2 02/15/20 07:08 120 18 30 02/15/20 05:44 114 18 30 02/15/20 04:00 98.5 116 20 94/71 (79) 99 02/15/20 04:00 Mechanical Ventilator 02/15/20 04:00 30 02/15/20 04:00 120 02/15/20 03:20 112 18 30 02/15/20 01:15 99 18 30 02/15/20 00:00 116 02/15/20 00:00 30 02/15/20 00:00 97.7 113 20 103/64 (77) 99 02/15/20 00:00 Mechanical Ventilator 02/14/20 23:25 105 17 30 02/14/20 21:40 100 15 100 Mechanical Ventilator 30 113 15 30 02/14/20 20:18 112 87/69 02/14/20 20:00 98.7 99 20 109/58 (75) 100 02/14/20 20:00 30 02/14/20 20:00 Mechanical Ventilator 02/14/20 19:26 119 02/14/20 19:10 114 20 30 02/14/20 18:24 118 103/62 02/14/20 17:10 115 26 30 02/14/20 16:00 116 02/14/20 16:00 30 02/14/20 16:00 Mechanical Ventilator 02/14/20 16:00 97.5 118 18 103/62 (76) 100 02/14/20 15:30 113 18 30 02/14/20 14:05 127 15 30 02/14/20 14:00 115 20 100 Mechanical Ventilator 30 02/14/20 12:00 30 02/14/20 12:00 98.0 113 15 104/75 (85) 100 02/14/20 12:00 Mechanical Ventilator 02/14/20 11:55 117 02/14/20 11:02 117 22 30 02/14/20 09:00 124 98/65 02/14/20 08:55 122 18 30 Intake and Output 02/14/20 02/15/20 19:00 07:00 Intake Total 60 ml 880 ml Output Total 700 ml Balance 60 ml 180 ml IV Total 220 ml Tube Feeding 60 ml 660 ml Output Urine Total 600 ml Stool Total 100 ml Labs Test 02/12/20 14:00 02/14/20 03:45 Arterial Blood pH 7.319 (7.350-7.450) Arterial Blood Partial Pressure CO2 52.0 mmHg (35.0-45.0) Arterial Blood Partial Pressure O2 84.9 mmHg (75.0-100.0) Arterial Blood HCO3 26.1 mmol/L (22.0-26.0) Arterial Blood Oxygen Saturation 94.1 % (95-100) Arterial Blood Base Excess -0.3 (-2-2) Leonel Test Positive White Blood Count 6.2 K/UL (4.8-10.8) Red Blood Count 3.00 M/UL (4.20-5.40) Hemoglobin 8.7 G/DL (12.0-16.0) Hematocrit 28.8 % (37.0-47.0) Mean Corpuscular Volume 96 FL (80-99) Mean Corpuscular Hemoglobin 29.0 PG (27.0-31.0) Mean Corpuscular Hemoglobin Concent 30.2 G/DL (32.0-36.0) Red Cell Distribution Width 24.2 % (11.6-14.8) Platelet Count 285 K/UL (150-450) Mean Platelet Volume 6.2 FL (6.5-10.1) Neutrophils (%) (Auto) 76.1 % (45.0-75.0) Lymphocytes (%) (Auto) 14.3 % (20.0-45.0) Monocytes (%) (Auto) 4.8 % (1.0-10.0) Eosinophils (%) (Auto) 3.1 % (0.0-3.0) Basophils (%) (Auto) 1.7 % (0.0-2.0) Sodium Level 150 MMOL/L (136-145) Potassium Level 3.2 MMOL/L (3.5-5.1) Chloride Level 114 MMOL/L (98-107) Carbon Dioxide Level 29 MMOL/L (21-32) Anion Gap 7 mmol/L (5-15) Blood Urea Nitrogen 17 mg/dL (7-18) Creatinine 0.7 MG/DL (0.55-1.30) Estimat Glomerular Filtration Rate > 60 mL/min (>60) Glucose Level 175 MG/DL (74-106) Calcium Level 7.6 MG/DL (8.5-10.1) Magnesium Level 1.8 MG/DL (1.8-2.4) Total Bilirubin 0.4 MG/DL (0.2-1.0) Aspartate Amino Transf (AST/SGOT) 69 U/L (15-37) Alanine Aminotransferase (ALT/SGPT) 26 U/L (12-78) Alkaline Phosphatase 451 U/L (46-116) Troponin I 0.154 ng/mL (0.000-0.056) Pro-B-Type Natriuretic Peptide 83262 pg/mL (0-125) Total Protein 7.2 G/DL (6.4-8.2) Albumin 1.3 G/DL (3.4-5.0) Globulin 5.9 g/dL Albumin/Globulin Ratio 0.2 (1.0-2.7) Height (Feet): 5 Height (Inches): 3.00 Weight (Pounds): 142 Objective WDWN NAD trach clear breath sounds bilaterally without rhonchi or wheeze [id number] without MRG NABS nontender GT no CCE nonfocal chronic rash Stevenson Medina MD Feb 15, 2020 08:16
[2020-02-15] MEDS: Ascorbic Acid 500mg tab ORAL SCH ×2 (08:43→17:22)
[2020-02-15] MEDS: Heparin 5000 units/ml inj SUBQ SCH ×2 (08:44→22:13)
[2020-02-15] MEDS: Metoprolol Tartrate 50mg tab GT SCH ×2 (08:45→22:15)
[2020-02-15] MEDS: Colistin for inhalation INH SCH ×2 (09:32→23:19)
--- NOTE | 2020-02-15 09:35 | NUR ---
RESPIRATORY NOTE: MAGI Herbert administered Colistin @ 2411
--- NOTE | 2020-02-15 09:56 | NUR ---
RADIOLOGY DEPT., CHEST X-RAY DONE.-P.DYE
[2020-02-15] MEDS ORDERED: NS 275ml ONE ×3 (10:11→10:14)
[2020-02-15] MEDS ORDERED: Tubing IV Secondary IV ONE ×2 (10:12→10:14)
[2020-02-15] MEDS ORDERED: NS 500ML ONE (10:14)
--- NOTE | 2020-02-15 10:48 | Infectious Diseases Prog Note ---
Assessment/Plan Assessment/Plan A: 1. Acinetobacter pneumonia, COVID-19 rapid test was negative. 2. Respiratory failure, status post tracheostomy. 3. Urinary tract infection with ESBL E. coli & Proteus 4. MRSA sepsis 5. Sinus tachycardia PLAN: 1. Continue IV vancomycin and Colistin inhaler 2. Continue Unasyn 2. We will follow up cultures Subjective ROS Limited/Unobtainable: Yes Constitutional: Denies: fever Allergies: Coded Allergies: No Known Allergies (Unverified , 02/09/20) Objective Last 24 Hour Vital Signs Date Time Temp Pulse Resp B/P (MAP) Pulse Ox O2 Delivery O2 Flow Rate FiO2 02/15/20 08:45 108 91/66 02/15/20 08:00 30 02/15/20 08:00 97.1 109 19 84/59 (67) 99 109 02/15/20 07:08 120 18 30 02/15/20 05:44 114 18 30 02/15/20 04:00 98.5 116 20 94/71 (79) 99 02/15/20 04:00 Mechanical Ventilator 02/15/20 04:00 30 02/15/20 04:00 120 02/15/20 03:20 112 18 30 02/15/20 01:15 99 18 30 02/15/20 00:00 116 02/15/20 00:00 30 02/15/20 00:00 97.7 113 20 103/64 (77) 99 02/15/20 00:00 Mechanical Ventilator 02/14/20 23:25 105 17 30 02/14/20 21:40 100 15 100 Mechanical Ventilator 30 113 15 30 02/14/20 20:18 112 87/69 02/14/20 20:00 98.7 99 20 109/58 (75) 100 02/14/20 20:00 30 02/14/20 20:00 Mechanical Ventilator 02/14/20 19:26 119 02/14/20 19:10 114 20 30 02/14/20 18:24 118 103/62 02/14/20 17:10 115 26 30 02/14/20 16:00 116 02/14/20 16:00 30 02/14/20 16:00 Mechanical Ventilator 02/14/20 16:00 97.5 118 18 103/62 (76) 100 02/14/20 15:30 113 18 30 02/14/20 14:05 127 15 30 02/14/20 14:00 115 20 100 Mechanical Ventilator 30 02/14/20 12:00 30 02/14/20 12:00 98.0 113 15 104/75 (85) 100 02/14/20 12:00 Mechanical Ventilator 02/14/20 11:55 117 02/14/20 11:02 117 22 30 Height (Feet): 5 Height (Inches): 3.00 Weight (Pounds): 142 General Appearance: no acute distress HEENT: status post trach Respiratory/Chest: lungs clear, other - on ventilator Cardiovascular: tachycardia Abdomen: soft, non tender, other - GT feeding Skin: other - vetiligo , superficial ulcers Neurologic/Psychiatric: other - sleeping Current Medications Medications (Trade) Dose Ordered Sig/Lucy Route PRN Reason Start Time Stop Time Status Last Admin Dose Admin Acetaminophen (Tylenol) 650 mg Q4H PRN GT Mild Pain (Pain Scale 1-3) 02/09/20 10:30 03/10/20 10:29 02/13/20 21:00 Ampicillin Sodium/ Sulbactam Sodium 3 gm/Sodium Chloride 110 ml @ 220 mls/hr Q6HR IVPB 02/14/20 12:00 02/21/20 11:59 02/15/20 06:12 Ascorbic Acid (Vitamin C) 250 mg TWICE A DAY ORAL 02/11/20 18:00 03/12/20 17:59 02/15/20 08:43 Clonidine HCl (Catapres Tab) 0.1 mg Q4H PRN GT For High Blood Pressure 02/09/20 13:45 05/09/20 13:44 Colistimethate Sodium (Colistin *inhalation use only*) 75 mg Q12HR@10,22 INH 02/13/20 15:00 02/20/20 14:59 02/15/20 09:32 Diltiazem HCl (Cardizem) 10 mg ONCE IVP 02/14/20 18:30 03/15/20 18:29 02/14/20 18:24 Diphenhydramine HCl (Benadryl) 25 mg Q6H PRN GT ITCHING 02/09/20 10:30 03/10/20 10:29 02/14/20 22:50 Diphenoxylate HCl/ Atropine (Lomotil) 2.5 mg Q6H PRN GT Diarrhea 02/13/20 11:00 03/14/20 10:59 Famotidine (Pepcid) 20 mg TWICE A DAY GT 02/09/20 11:00 05/09/20 10:59 02/15/20 08:43 Heparin Sodium (Porcine) (Heparin 5000 units/ml) 5,000 units EVERY 12 HOURS SUBQ 02/09/20 21:00 03/25/20 20:59 02/15/20 08:44 Lansoprazole (Prevacid) 30 mg DAILY GT 02/10/20 09:00 03/11/20 08:59 02/15/20 08:43 Levothyroxine Sodium (Synthroid) 75 mcg DAILY GT 02/12/20 09:00 03/11/20 08:59 02/15/20 08:43 Metoprolol Tartrate (Lopressor) 50 mg EVERY 12 HOURS GT 02/14/20 09:00 05/14/20 08:59 Vancomycin HCl ([facility] pharmacy to dose) 1 ea DAILY PRN MISC Per rx protocol 02/09/20 10:30 03/10/20 10:29 Vancomycin HCl 750 mg/Sodium Chloride 275 ml @ 183.333 mls/hr Q12HR@0600,1800 IVPB 02/09/20 18:00 02/16/20 17:59 02/15/20 06:46 Arnoldo West MD Feb 15, 2020 10:48
--- NOTE | 2020-02-15 11:32 | Surgery Progress Note ---
Surgery Progress Note Subjective Additional Comments no n/v comfortable no acute events Objective Last 24 Hour Vital Signs Date Time Temp Pulse Resp B/P (MAP) Pulse Ox O2 Delivery O2 Flow Rate FiO2 02/15/20 10:45 115 14 30 02/15/20 08:45 108 91/66 02/15/20 08:00 30 02/15/20 08:00 97.1 109 19 84/59 (67) 99 109 02/15/20 07:08 120 18 30 02/15/20 05:44 114 18 30 02/15/20 04:00 98.5 116 20 94/71 (79) 99 02/15/20 04:00 Mechanical Ventilator 02/15/20 04:00 30 02/15/20 04:00 120 02/15/20 03:20 112 18 30 02/15/20 01:15 99 18 30 02/15/20 00:00 116 02/15/20 00:00 30 02/15/20 00:00 97.7 113 20 103/64 (77) 99 02/15/20 00:00 Mechanical Ventilator 02/14/20 23:25 105 17 30 02/14/20 21:40 100 15 100 Mechanical Ventilator 30 113 15 30 02/14/20 20:18 112 87/69 02/14/20 20:00 98.7 99 20 109/58 (75) 100 02/14/20 20:00 30 02/14/20 20:00 Mechanical Ventilator 02/14/20 19:26 119 02/14/20 19:10 114 20 30 02/14/20 18:24 118 103/62 02/14/20 17:10 115 26 30 02/14/20 16:00 116 02/14/20 16:00 30 02/14/20 16:00 Mechanical Ventilator 02/14/20 16:00 97.5 118 18 103/62 (76) 100 02/14/20 15:30 113 18 30 02/14/20 14:05 127 15 30 02/14/20 14:00 115 20 100 Mechanical Ventilator 30 02/14/20 12:00 30 02/14/20 12:00 98.0 113 15 104/75 (85) 100 02/14/20 12:00 Mechanical Ventilator 02/14/20 11:55 117 I&O Intake and Output 02/14/20 02/15/20 19:00 07:00 Intake Total 60 ml 880 ml Output Total 700 ml Balance 60 ml 180 ml IV Total 220 ml Tube Feeding 60 ml 660 ml Output Urine Total 600 ml Stool Total 100 ml Dressing: other Wound: other Cardiovascular: RSR Respiratory: decreased breath sounds Abdomen: soft, non-tender, present bowel sounds Extremities: no tenderness, no cyanosis, other Plan Problems: (1) Sepsis Assessment & Plan: Leukocytosis, anemia, lactic acidosis sepsis uro uti likely wounds noted and stable unlikely etiology nutritional optimization tf as tolerated vent support cxr noted d/cp marry DAILY ESTIMATED NEEDS: Needs based on Wound, critical care 52.3kg abw 25-30 kcals/kg 3342-2657 total kcals 1.25-2 g protein/kg 65-105 g total protein 25-30 mL/kg 8450-9162 total fluid mLs NUTRITION DIAGNOSIS: Increased kcal and pro needs r/t wound healing as evidenced by pt w/multiple full thickness wounds, refer to wound care eval, pt is bedbound trach and peg dep. CURRENT TF: Glucerna 1.2 @60ml/hr x20 hrs ENTERAL NUTRITION RECOMMENDATIONS: Maintain Glucerna 1.2 w/ goal of 60ml/hr x20 hrs to provide 1200ml, 1440 kcal, 72g pro, 966ml free H2O - Maintain current TF rate to meet 100% est needs - Rec added PROSOURCE 1 pack daily (11g pro) to better meet est pro needs - Flush per MD. HOB over 30 degrees ADDITIONAL RECOMMENDATIONS: 1) Wound care: add GT BID + Vit C 250mg BID 2) Per SNF: 61 inches (5'1") and last wt 145 lbs/65.91kg Maintain calibrated bed scale wts w/ added P200 mattress 3) Rec NISS + accuchecks for improved BG (2) UTI (urinary tract infection) (3) Pneumonia (4) Decubitus skin ulcer Assessment & Plan: Pt presented on admission with Pressure Injuries, Tracheostomy,Alopecia, Generalized Hypopigmented Skin plaques. Few plaques noted to be open lesions but are pink and dry. Skin assessed under collar of trach and no areas of skin breakdown noted. Full thickness Pressure injury noted to R Buttocks(L)5.7cm x (W)1.7cm x (D) 0.3cm. Base of wound is 90% beefy-red,10% slough. Borders are macerated . surrounding dry skin with hypopigmented plaques. Full thickness Pressure injury L Buttocks(L)4.6cm x (W)4.5cm. Base of wound has clusters wounds with intertwining bridges. Wounds have mixed slough and jack appearances. Small amt serous exudate noted. Surrounding dry hypopigmented skin plaques. Proximally and in close proximity skin is denuded. Small pustule with surrounding erythema noted L Hallux(L)0.5cm x (W)0.6cm. NO changes in skin temp periwound. An area of hyperpigmentation from previous wound noted to medial/posterior R Heel. L Heel is otherwise boggy with non-blanching erythema. Reabsorbed DTPI L Heel(L)2.2cm x (W)2cm. Dry brown eschar at base of wound. NO erythema or fluctuance periwound. Unstageable Pressure injury L lateral Malleolus(L)0.7cm x (W)0.9cm. Base of wound has 100% slough.edges dry and adherent to base of wound. No erythema, induration,or fluctuance periwound. Tx.Plan: Cleanse wounds R and L Buttocks with Saline. Apply Therahoney to wounds. Apply Moisture Barrier Paste Periwound. Cover with Optifoam drsg Daily and prn. Apply Betadine to wound R Hallux. Cover with Optifoam drsg every 3 days and prn. Apply Betadine to L lateral Malleolus. Cover with Optifoam drsg. Change every 3 days and prn. Apply Cavilon Skin Barrier to both heels. Cover each heel with Optifoam drsg. Change every 7 days and prn. Reposition at least every 2hours or as tolerated. Off-load heels with pillow. APM/ELIDIA Mattress overlay. Zia Chung Feb 15, 2020 11:32
--- NOTE | 2020-02-15 11:49 | Diagnostic Imaging Report ---
Procedure: XRAY Chest 1v Reason for study: Shortness of breath Comparison films: 02/14/2020. FINDINGS: Tracheostomy remains in place. Bilateral alveolar infiltrates unchanged. Cardiac and mediastinal silhouette are within normal limits. CP angles are sharp. The bony thorax appear unremarkable. IMPRESSION: NO SIGNIFICANT CHANGE COMPARED TO PREVIOUS EXAM.
[2020-02-15 12:00] VITALS: BP 109/78
--- NOTE | 2020-02-15 12:25 | NUR ---
DISCHARGE PLANNING: NOTE DIARRHEA DECREASING PER NOTES. PER NURSING RECTAL TUBE IS IN PLACE GI CLEARANCE REQUESTED. CLINICALS FAXED TO [facility] FOR POSS DC TODAY TO SNF Addendum: 02/15/20 at 1611 by Sulma Vasquez CM ROOM [id number] PROVIDED AT [facility] CLEARED BY GI FOR DC NURSING TO F/U WITH MD MCKEE REGARDING NA
--- NOTE | 2020-02-15 13:39 | NUR ---
RESPIRATORY NOTE: Pt received on AC 14, 550, 30% +5. Pt trach type is Shiley size 8. Pt SpO2 96%, HR 115. B/S bilateral rhonchi. Suctioned small amount of pale yellow secretions. Trach secured and airway patent. Spare trach and ambu bag at bedside. Vent plugged in to red outlet. No distress noted at this time. Will continue to monitor.
[2020-02-15 16:00] VITALS: BP 107/78
--- NOTE | 2020-02-15 16:55 | NUR ---
CASE MANAGEMENT: REVIEW 02/15/2020 SI;SEPSIS. PNA. VS: T 97.1 HR 109 RR 20 B/P 107/78 SATS 99% ON MECH VENT FIO2 30 LABS: NONE TODAY IS:LOPRESSOR GT Q12H CARDIZEM IV X1 VANCO IV Q12H UNASYN IV Q6H SDU
--- NOTE | 2020-02-15 16:58 | NUR ---
INSURANCE 02/14 PROGRESS NOTES AND REVIEW FAXED TO FAX# [phone] REVIEWS/CLINICALS
--- NOTE | 2020-02-15 19:27 | NUR ---
NURSE HAND-OFF REPORT: Important Events on Shift: pulled out her IV line, on restraints Patient Status: full code Diet: TF glucerna 1.2 X 20 hrs off 02-05 Pending Orders: Pending Results/Labs: Pending MD notification: Latest Vital Signs: Temperature 97.1 , Pulse 120 , B/P 107 /78 , Respiratory Rate 14 , O2 SAT 99 , Mechanical Ventilator, O2 Flow Rate 15.0 . Vital Sign Comment: EKG Rhythm: Sinus Tachycardia Rhythm change?: N MD Notified?: - MD Response: Latest Hope Fall Score: 50 Fall Risk: High Risk Safety Measures: Call light Within Reach, Bed Alarm Zone 2, Side Rails Side Rails x3, Bed position Low and Locked. Fall Precautions: Yellow Socks Report given to papito remy.
--- NOTE | 2020-02-15 19:30 | NUR ---
NURSE NOTES: Received pt's report from MAGI Herbert. Pt is on bed with open eyes. Pt is on vent, SpO2 100%. Pt is on G-tube, running noted. Pt is on Vann, yellow color urine noted. Pt is on soft wrist restraints noted. IV site, clean and intact noted. Bed is low and locked. Call-light is within reach. Will continue to monitor with plan of care.
[2020-02-15 20:00] VITALS: BP 101/67
--- NOTE | 2020-02-15 21:16 | General Progress Note ---
Assessment/Plan Assessment/Plan: Assessment - Diarrhea - improved off of Mylanta - Resp failure - s/p trach - dysphagia - s/p PEG Recommendations - continue TF - GT care - elevate HOB - monitor stool output - d/c planning Subjective Allergies: Coded Allergies: No Known Allergies (Unverified , 02/09/20) Subjective above noted no events overnight reduced BM output noted d/c planning in progress Objective Last 24 Hour Vital Signs Date Time Temp Pulse Resp B/P (MAP) Pulse Ox O2 Delivery O2 Flow Rate FiO2 02/15/20 19:42 113 14 30 02/15/20 17:15 120 14 30 02/15/20 16:00 119 02/15/20 16:00 Mechanical Ventilator 02/15/20 16:00 30 02/15/20 16:00 97.1 109 20 107/78 (88) 99 109 02/15/20 15:03 123 14 30 02/15/20 12:00 98.7 109 21 109/78 (88) 99 109 02/15/20 12:00 30 02/15/20 12:00 117 02/15/20 12:00 Mechanical Ventilator 02/15/20 10:45 115 14 30 02/15/20 08:45 108 91/66 02/15/20 08:00 105 02/15/20 08:00 Mechanical Ventilator 02/15/20 08:00 30 02/15/20 08:00 97.1 109 19 84/59 (67) 99 109 02/15/20 07:08 120 18 30 02/15/20 05:44 114 18 30 02/15/20 04:00 98.5 116 20 94/71 (79) 99 02/15/20 04:00 Mechanical Ventilator 02/15/20 04:00 30 02/15/20 04:00 120 02/15/20 03:20 112 18 30 02/15/20 01:15 99 18 30 02/15/20 00:00 116 02/15/20 00:00 30 02/15/20 00:00 97.7 113 20 103/64 (77) 99 02/15/20 00:00 Mechanical Ventilator 02/14/20 23:25 105 17 30 02/14/20 21:40 100 15 100 Mechanical Ventilator 30 113 15 30 Intake and Output 02/14/20 02/15/20 19:00 07:00 Intake Total 60 ml 880 ml Output Total 700 ml Balance 60 ml 180 ml IV Total 220 ml Tube Feeding 60 ml 660 ml Output Urine Total 600 ml Stool Total 100 ml Height (Feet): 5 Height (Inches): 3.00 Weight (Pounds): 142 Objective debilitated AA woman NCAT (++) viteligo supple, (+) trach CTA RRR abd soft ND NT, (+) GT no edema Priti Sequeira MD Feb 15, 2020 21:16
--- NOTE | 2020-02-15 21:56 | Cardiology Progress Note ---
Subjective DATE OF SERVICE: Feb 15, 2020 On vent support Monitor: sinus tachycardia persists. Episodes of rapid atrial flutter noted as well - slowed with IV diltiazem. Troponin still elevated - but in low range without significant progression Has moderate secretions from trach. Still with diarrhea but decreasing - CDiff toxin negative Venous Duplex negative for DVT CXR (02/14) still with bilateral infiltrates Objective Last 24 Hour Vital Signs Date Time Temp Pulse Resp B/P (MAP) Pulse Ox O2 Delivery O2 Flow Rate FiO2 02/15/20 19:42 113 14 30 02/15/20 17:15 120 14 30 02/15/20 16:00 119 02/15/20 16:00 Mechanical Ventilator 02/15/20 16:00 30 02/15/20 16:00 97.1 109 20 107/78 (88) 99 109 02/15/20 15:03 123 14 30 02/15/20 12:00 98.7 109 21 109/78 (88) 99 109 02/15/20 12:00 30 02/15/20 12:00 117 02/15/20 12:00 Mechanical Ventilator 02/15/20 10:45 115 14 30 02/15/20 08:45 108 91/66 02/15/20 08:00 105 02/15/20 08:00 Mechanical Ventilator 02/15/20 08:00 30 02/15/20 08:00 97.1 109 19 84/59 (67) 99 109 02/15/20 07:08 120 18 30 02/15/20 05:44 114 18 30 02/15/20 04:00 98.5 116 20 94/71 (79) 99 02/15/20 04:00 Mechanical Ventilator 02/15/20 04:00 30 02/15/20 04:00 120 02/15/20 03:20 112 18 30 02/15/20 01:15 99 18 30 02/15/20 00:00 116 02/15/20 00:00 30 02/15/20 00:00 97.7 113 20 103/64 (77) 99 02/15/20 00:00 Mechanical Ventilator 02/14/20 23:25 105 17 30 ROS: unchanged from my note of 02/09/20 HEENT: Mechanically Ventilated, Thick Trach secretions RHYTHM: ST LUNGS: bilateral rhonchi CARDIAC: regular rhythm, normal S1 and S2, rapid rate, gallop/S4 ABDOMEN: normal bowel sounds, non tender, soft, no organomegaly, G-Tube intact EXTREMITIES: non-tender, no calf tenderness, No edema Assessment/Plan Assessment/Plan Severe sepsis Diarrhea with negative [facility] polymicrobial PNA Polymicrobial UTI Respiratory failure with trach Sinus tachycardia Paroxysmal atrial flutter Acute myocardial ischemia with elevated troponin levels and possible NSTEMI Hypovolemia/dehydration Moderate protein calorie malnutrition Acute on chronic respiratory acidosis Sinus node disease Dehydration/hypernatremia CRITICAL & GUARDED Vent support Replace fluid and electrolyte losses; free water replacement and potassium ordered Abx Titrate beta mingo; add diltiazem DVT prophylaxis Nutritional support by GTUbe Monitor acid-base parameters and adjust settings. Luis Felipe Sorto MD Feb 15, 2020 21:56
[2020-02-15] MEDS ORDERED: dilTIAZem HCl 30mg tab ORAL SCH (22:00)
--- NOTE | 2020-02-15 23:05 | NUR ---
NURSE NOTES: Diltiazem 30mg is non-administered and the crushed med is wasted, the order was Q6hrs but found it is scheduled 2200, 0000, 0600. Called [facility] to verify the schedule time since metoprolol @ 2100 is duplicated with the med and this is 2 hours apart from 0000 medication. They will reschedule to start to med at 0000.
[2020-02-16] VITALS: BP 97/74
[2020-02-16] MEDS: DiphenhydrAMINE 25mg/10ml Elixir GT PRN ×2 (00:03→08:18)
[2020-02-16 03:57] VITALS: BP 96/65
[2020-02-16] MEDS: dilTIAZem HCl 30mg tab ORAL SCH ×5 (06:00→23:27)
[2020-02-16] MEDS: Ampicillin/Sulbactam Sod 3 GM in NS 110 ML IVPB SCH ×4 (06:07→23:27)
[2020-02-16] MEDS: Vancomycin 750mg/NS 275ml IVPB SCH ×4 (06:07→17:56)
--- NOTE | 2020-02-16 06:46 | General Progress Note ---
Assessment/Plan Assessment/Plan: Assessment/Plan: Assessment - Diarrhea - improved off of Mylanta - Resp failure - s/p trach - dysphagia - s/p PEG Recommendations - continue TF - GT care - elevate HOB - monitor stool output - d/c planning Subjective ROS Limited/Unobtainable: No Allergies: Coded Allergies: No Known Allergies (Unverified , 02/09/20) Objective Last 24 Hour Vital Signs Date Time Temp Pulse Resp B/P (MAP) Pulse Ox O2 Delivery O2 Flow Rate FiO2 02/16/20 06:00 112 96/65 02/16/20 04:00 Mechanical Ventilator 02/16/20 04:00 30 02/16/20 03:57 98.4 111 15 96/65 (75) 100 02/16/20 03:30 110 15 30 02/16/20 00:00 112 97/74 02/16/20 00:00 Mechanical Ventilator 02/16/20 00:00 99.0 112 16 97/74 (82) 100 02/16/20 00:00 30 02/15/20 23:36 113 02/15/20 23:19 115 14 100 Mechanical Ventilator 30 116 14 30 02/15/20 22:29 115 103/72 02/15/20 22:15 117 106/77 02/15/20 20:00 30 02/15/20 20:00 98.1 115 16 101/67 (78) 100 02/15/20 20:00 Mechanical Ventilator 02/15/20 19:42 113 14 30 02/15/20 19:27 116 02/15/20 17:15 120 14 30 02/15/20 16:00 119 02/15/20 16:00 Mechanical Ventilator 02/15/20 16:00 30 02/15/20 16:00 97.1 109 20 107/78 (88) 99 109 02/15/20 15:03 123 14 30 02/15/20 12:00 98.7 109 21 109/78 (88) 99 109 02/15/20 12:00 30 02/15/20 12:00 117 02/15/20 12:00 Mechanical Ventilator 02/15/20 10:45 115 14 30 02/15/20 08:45 108 91/66 02/15/20 08:00 105 02/15/20 08:00 Mechanical Ventilator 02/15/20 08:00 30 02/15/20 08:00 97.1 109 19 84/59 (67) 99 109 02/15/20 07:08 120 18 30 Intake and Output 02/15/20 02/16/20 19:00 07:00 Intake Total 1096.666 ml 1245 ml Output Total 700 ml 500 ml Balance 396.666 ml 745 ml Intake Free Water 90 ml 100 ml IV Total 586.666 ml 485 ml Tube Feeding 420 ml 660 ml Output Urine Total 400 ml 450 ml Stool Total 300 ml 50 ml Height (Feet): 5 Height (Inches): 3.00 Weight (Pounds): 142 General Appearance: no apparent distress EENT: normal ENT inspection Neck: supple Cardiovascular: normal rate Respiratory/Chest: decreased breath sounds Abdomen: normal bowel sounds, non tender, soft Extremities: non-tender Dusty Zhang MD Feb 16, 2020 06:46
--- NOTE | 2020-02-16 07:10 | NUR ---
NURSE NOTES: Received pt from MAGI Teresa. Pt is lying in bed, eyes closed, sleeping. Pt is lying on semi-ashford's position. Gtube running glucerna 1.2 @60cc/hr. Intact and patent. Pt has left antecubital IV line, inserted 02/16/20, running patent and intact. Pt on vent o2 sat 100%. No signs of respiratory distress. No any pain noted. Pt on soft wrist restraints bilateral with no signs of any significant changes underneath the skin.Pt bed in lowest position. Call light within reach. Continue to plan of care.
--- NOTE | 2020-02-16 07:35 | NUR ---
NURSE HAND-OFF REPORT: Important Events on Shift: Sinus tachycardia. pt tents to move a lot, need to reposition the pt often Patient Status: sinus tachycardia, agitated Diet: Glucerna 1.2, @ 60ml/Hr, 20Hr ([id number] hold) Pending Orders: Pending Results/Labs: Pending MD notification: Latest Vital Signs: Temperature 98.4 , Pulse 120 , B/P 96 /65 , Respiratory Rate 20 , O2 SAT 100 , Mechanical Ventilator, O2 Flow Rate 15.0 . Vital Sign Comment: Sinus tachycardia EKG Rhythm: Sinus Tachycardia Rhythm change?: N MD Notified?: - MD Response: Message left await call Latest Hope Fall Score: 50 Fall Risk: High Risk Safety Measures: Call light Within Reach, Bed Alarm Zone 2, Side Rails Side Rails x3, Bed position Low and Locked. Fall Precautions: Yellow Socks Yellow Gown Door Sign Report given to MAGI Osullivan.
[2020-02-16 07:50] LABS: BASOPHILS % (AUTO) 3.1 % (0.0-2.0); EOSINOPHILS % (AUTO) 8.2 % (0.0-3.0); HEMATOCRIT 29.6 % (37.0-47.0); HEMOGLOBIN 8.7 G/DL (12.0-16.0); LYMPHOCYTES % (AUTO) 15.9 % (20.0-45.0); MEAN CORPUSCULAR VOLUME 100 FL (80-99); MONOCYTES % (AUTO) 7.5 % (1.0-10.0); NEUTROPHILS % (AUTO) 65.3 % (45.0-75.0); PLATELET COUNT 182 K/UL (150-450); RED BLOOD COUNT 2.97 M/UL (4.20-5.40); RED CELL DISTRIBUTION WIDTH 25.5 % (11.6-14.8)
[2020-02-16 08:00] VITALS: BP 111/70
[2020-02-16 08:17] LABS: ALANINE AMINOTRANSFERASE 55 U/L (12-78); ALBUMIN 1.3 G/DL (3.4-5.0); ALBUMIN/GLOBULIN RATIO 0.2 (1.0-2.7); ALKALINE PHOSPHATASE 426 U/L (46-116); ANION GAP 8 mmol/L (5-15); ASPARTATE AMINO TRANSFERASE 177 U/L (15-37); BILIRUBIN,TOTAL 0.5 MG/DL (0.2-1.0); BLOOD UREA NITROGEN 12 mg/dL (7-18); CALCIUM 7.6 MG/DL (8.5-10.1); CARBON DIOXIDE 28 MMOL/L (21-32); CHLORIDE 120 MMOL/L (98-107); CREATININE 0.5 MG/DL (0.55-1.30); POTASSIUM 3.7 MMOL/L (3.5-5.1); SODIUM 156 MMOL/L (136-145)
[2020-02-16] MEDS: Ascorbic Acid 500mg tab ORAL SCH ×2 (08:18→17:03)
[2020-02-16] MEDS: Metoprolol Tartrate 50mg tab GT SCH ×2 (08:19→20:21)
[2020-02-16] MEDS: Heparin 5000 units/ml inj SUBQ SCH ×2 (08:19→20:22)
--- NOTE | 2020-02-16 09:39 | Surgery Progress Note ---
Surgery Progress Note Subjective Symptoms: improved, tolerating diet, passing flatus Objective Last 24 Hour Vital Signs Date Time Temp Pulse Resp B/P (MAP) Pulse Ox O2 Delivery O2 Flow Rate FiO2 02/16/20 08:47 15.0 30 02/16/20 08:46 108 15 30 02/16/20 08:32 Mechanical Ventilator 02/16/20 08:19 115 111/70 02/16/20 08:00 110 02/16/20 08:00 98.2 115 15 111/70 (84) 100 02/16/20 07:32 120 20 30 02/16/20 06:00 112 96/65 02/16/20 04:00 Mechanical Ventilator 02/16/20 04:00 30 02/16/20 04:00 117 02/16/20 03:57 98.4 111 15 96/65 (75) 100 02/16/20 03:30 110 15 30 02/16/20 00:00 112 97/74 02/16/20 00:00 Mechanical Ventilator 02/16/20 00:00 99.0 112 16 97/74 (82) 100 02/16/20 00:00 30 02/15/20 23:36 113 02/15/20 23:19 115 14 100 Mechanical Ventilator 30 116 14 30 02/15/20 22:29 115 103/72 02/15/20 22:15 117 106/77 02/15/20 20:00 30 02/15/20 20:00 98.1 115 16 101/67 (78) 100 02/15/20 20:00 Mechanical Ventilator 02/15/20 19:42 113 14 30 02/15/20 19:27 116 02/15/20 17:15 120 14 30 02/15/20 16:00 119 02/15/20 16:00 Mechanical Ventilator 02/15/20 16:00 30 02/15/20 16:00 97.1 109 20 107/78 (88) 99 109 02/15/20 15:03 123 14 30 02/15/20 12:00 98.7 109 21 109/78 (88) 99 109 02/15/20 12:00 30 02/15/20 12:00 117 02/15/20 12:00 Mechanical Ventilator 02/15/20 10:45 115 14 30 I&O Intake and Output 02/15/20 02/16/20 19:00 07:00 Intake Total 1096.666 ml 1245 ml Output Total 700 ml 500 ml Balance 396.666 ml 745 ml Intake Free Water 90 ml 100 ml IV Total 586.666 ml 485 ml Tube Feeding 420 ml 660 ml Output Urine Total 400 ml 450 ml Stool Total 300 ml 50 ml Dressing: other Wound: other Cardiovascular: RSR Respiratory: decreased breath sounds Abdomen: soft, present bowel sounds Extremities: no cyanosis Laboratory Tests Test 02/16/20 06:10 White Blood Count 4.0 K/UL (4.8-10.8) L Red Blood Count 2.97 M/UL (4.20-5.40) L Hemoglobin 8.7 G/DL (12.0-16.0) L Hematocrit 29.6 % (37.0-47.0) L Mean Corpuscular Volume 100 FL (80-99) H Mean Corpuscular Hemoglobin 29.4 PG (27.0-31.0) Mean Corpuscular Hemoglobin Concent 29.5 G/DL (32.0-36.0) L Red Cell Distribution Width 25.5 % (11.6-14.8) H Platelet Count 182 K/UL (150-450) Mean Platelet Volume 6.8 FL (6.5-10.1) Neutrophils (%) (Auto) 65.3 % (45.0-75.0) Lymphocytes (%) (Auto) 15.9 % (20.0-45.0) L Monocytes (%) (Auto) 7.5 % (1.0-10.0) Eosinophils (%) (Auto) 8.2 % (0.0-3.0) H Basophils (%) (Auto) 3.1 % (0.0-2.0) H Sodium Level 156 MMOL/L (136-145) H Potassium Level 3.7 MMOL/L (3.5-5.1) Chloride Level 120 MMOL/L (98-107) H Carbon Dioxide Level 28 MMOL/L (21-32) Anion Gap 8 mmol/L (5-15) Blood Urea Nitrogen 12 mg/dL (7-18) Creatinine 0.5 MG/DL (0.55-1.30) L Estimat Glomerular Filtration Rate > 60 mL/min (>60) Glucose Level 132 MG/DL (74-106) H Calcium Level 7.6 MG/DL (8.5-10.1) L Magnesium Level 1.8 MG/DL (1.8-2.4) Total Bilirubin 0.5 MG/DL (0.2-1.0) Aspartate Amino Transf (AST/SGOT) 177 U/L (15-37) H Alanine Aminotransferase (ALT/SGPT) 55 U/L (12-78) Alkaline Phosphatase 426 U/L (46-116) H Pro-B-Type Natriuretic Peptide 88832 pg/mL (0-125) H Total Protein 7.4 G/DL (6.4-8.2) Albumin 1.3 G/DL (3.4-5.0) L Globulin 6.1 g/dL Albumin/Globulin Ratio 0.2 (1.0-2.7) L Plan Problems: (1) Sepsis Assessment & Plan: Leukocytosis, anemia, lactic acidosis sepsis uro uti likely wounds noted and stable unlikely etiology nutritional optimization tf as tolerated vent support cxr noted d/cp marry DAILY ESTIMATED NEEDS: Needs based on Wound, critical care 52.3kg abw 25-30 kcals/kg 9735-7649 total kcals 1.25-2 g protein/kg 65-105 g total protein 25-30 mL/kg 1274-5524 total fluid mLs NUTRITION DIAGNOSIS: Increased kcal and pro needs r/t wound healing as evidenced by pt w/multiple full thickness wounds, refer to wound care eval, pt is bedbound trach and peg dep. CURRENT TF: Glucerna 1.2 @60ml/hr x20 hrs ENTERAL NUTRITION RECOMMENDATIONS: Maintain Glucerna 1.2 w/ goal of 60ml/hr x20 hrs to provide 1200ml, 1440 kcal, 72g pro, 966ml free H2O - Maintain current TF rate to meet 100% est needs - Rec added PROSOURCE 1 pack daily (11g pro) to better meet est pro needs - Flush per HOB over 30 degrees ADDITIONAL RECOMMENDATIONS: 1) Wound care: add GT BID + Vit C 250mg BID 2) Per SNF: 61 inches (5'1") and last wt 145 lbs/65.91kg Maintain calibrated bed scale wts w/ added P200 mattress 3) Rec NISS + accuchecks for improved BG (2) UTI (urinary tract infection) (3) Pneumonia (4) Decubitus skin ulcer Assessment & Plan: Pt presented on admission with Pressure Injuries, Tracheostomy,Alopecia, Generalized Hypopigmented Skin plaques. Few plaques noted to be open lesions but are pink and dry. Skin assessed under collar of trach and no areas of skin breakdown noted. Full thickness Pressure injury noted to R Buttocks(L)5.7cm x (W)1.7cm x (D) 0.3cm. Base of wound is 90% beefy-red,10% slough. Borders are macerated . surrounding dry skin with hypopigmented plaques. Full thickness Pressure injury L Buttocks(L)4.6cm x (W)4.5cm. Base of wound has clusters wounds with intertwining bridges. Wounds have mixed slough and jack appearances. Small amt serous exudate noted. Surrounding dry hypopigmented skin plaques. Proximally and in close proximity skin is denuded. Small pustule with surrounding erythema noted L Hallux(L)0.5cm x (W)0.6cm. NO changes in skin temp periwound. An area of hyperpigmentation from previous wound noted to medial/posterior R Heel. L Heel is otherwise boggy with non-blanching erythema. Reabsorbed DTPI L Heel(L)2.2cm x (W)2cm. Dry brown eschar at base of wound. NO erythema or fluctuance periwound. Unstageable Pressure injury L lateral Malleolus(L)0.7cm x (W)0.9cm. Base of wound has 100% slough.edges dry and adherent to base of wound. No erythema, induration,or fluctuance periwound. Tx.Plan: Cleanse wounds R and L Buttocks with Saline. Apply Therahoney to wounds. Apply Moisture Barrier Paste Periwound. Cover with Optifoam drsg Daily and prn. Apply Betadine to wound R Hallux. Cover with Optifoam drsg every 3 days and prn. Apply Betadine to L lateral Malleolus. Cover with Optifoam drsg. Change every 3 days and prn. Apply Cavilon Skin Barrier to both heels. Cover each heel with Optifoam drsg. Change every 7 days and prn. Reposition at least every 2hours or as tolerated. Off-load heels with pillow. APM/ELIDIA Mattress overlay. Zia Chung Feb 16, 2020 09:39
[2020-02-16] MEDS: Colistin for inhalation INH SCH ×2 (10:36→23:06)
--- NOTE | 2020-02-16 11:38 | NUR ---
NURSE NOTES: Pt BP taken and Spoke to Dr. Busby, he is aware that recent BP of pt is 84/96,88/60.81/56,84/59 taken 4 consecutive times. Pt placed on [place] position. DR. Busby made aware and ordered 500ml bolus of NS x 1. Monitor pt closely.
--- NOTE | 2020-02-16 11:55 | NUR ---
NURSE NOTES: Rechecked BP: 98/65 GA -106 BPM. Pt is awake and responsive.
[2020-02-16 12:00] VITALS: BP 87/60
--- NOTE | 2020-02-16 13:22 | NUR ---
NURSE NOTES: Rechecked pt blood pressure after the NS 500cc Bolus BP 91/64 CT- 106. Pt is awake. No signs of decrease mental status.With palpable pulse in dorsalis pedis. Pt is awake and oriented x 1.
--- NOTE | 2020-02-16 13:31 | NUR ---
CASE MANAGEMENT:REVIEW 02/16/20 SI: SEPSIS. PNA. AMI 99.0 101 16 88/60 100% ON VENT SUPPORT W/30% FIO2 H/H-8.7/29.6 NA+156 CHL+120 GLUCOSE+132 CA-7.6 IS: IV AMPICILLIN Q6HRS IV VANCOMYCIN Q12 IVF@75/HR COLISTIN INH Q12 CARDIZEM GT Q6HRS LOPRESSOR GT Q12 HEPARIN SQ Q12 : STEP DOWN UNIT DCP: FROM [facility]
--- NOTE | 2020-02-16 13:50 | Pulmonology Progress Note ---
Subjective ROS Limited/Unobtainable: No Constitutional: Denies: fever Gastrointestinal/Abdominal: Reports: diarrhea Skin: Reports: other - itching Musculoskeletal: Reports: no symptoms Allergies: Coded Allergies: No Known Allergies (Unverified , 02/09/20) Objective Last 24 Hour Vital Signs Date Time Temp Pulse Resp B/P (MAP) Pulse Ox O2 Delivery O2 Flow Rate FiO2 02/16/20 12:37 109 15 30 02/16/20 12:14 Mechanical Ventilator 02/16/20 12:13 101 02/16/20 12:12 15.0 30 02/16/20 12:00 99.0 98 16 87/60 (69) 100 02/16/20 11:06 101 88/60 02/16/20 10:36 98 15 100 Mechanical Ventilator 30 107 17 30 02/16/20 08:47 15.0 30 02/16/20 08:46 108 15 30 02/16/20 08:32 Mechanical Ventilator 02/16/20 08:19 115 111/70 02/16/20 08:00 110 02/16/20 08:00 98.2 115 15 111/70 (84) 100 02/16/20 07:32 120 20 30 02/16/20 06:00 112 96/65 02/16/20 04:00 Mechanical Ventilator 02/16/20 04:00 30 02/16/20 04:00 117 02/16/20 03:57 98.4 111 15 96/65 (75) 100 02/16/20 03:30 110 15 30 02/16/20 00:00 112 97/74 02/16/20 00:00 Mechanical Ventilator 02/16/20 00:00 99.0 112 16 97/74 (82) 100 02/16/20 00:00 30 02/15/20 23:36 113 02/15/20 23:19 115 14 100 Mechanical Ventilator 30 116 14 30 02/15/20 22:29 115 103/72 02/15/20 22:15 117 106/77 02/15/20 20:00 30 02/15/20 20:00 98.1 115 16 101/67 (78) 100 02/15/20 20:00 Mechanical Ventilator 02/15/20 19:42 113 14 30 02/15/20 19:27 116 02/15/20 17:15 120 14 30 02/15/20 16:00 119 02/15/20 16:00 Mechanical Ventilator 02/15/20 16:00 30 02/15/20 16:00 97.1 109 20 107/78 (88) 99 109 02/15/20 15:03 123 14 30 Intake and Output 02/15/20 02/16/20 19:00 07:00 Intake Total 1096.666 ml 1245 ml Output Total 700 ml 500 ml Balance 396.666 ml 745 ml Intake Free Water 90 ml 100 ml IV Total 586.666 ml 485 ml Tube Feeding 420 ml 660 ml Output Urine Total 400 ml 450 ml Stool Total 300 ml 50 ml Laboratory Tests 02/16/20 06:10: White Blood Count 4.0L, Red Blood Count 2.97L, Hemoglobin 8.7L, Hematocrit 29.6L , Mean Corpuscular Volume 100H, Mean Corpuscular Hemoglobin 29.4, Mean Corpuscular Hemoglobin Concent 29.5L, Red Cell Distribution Width 25.5H, Platelet Count 182, Mean Platelet Volume 6.8, Neutrophils (%) (Auto) 65.3, Lymphocytes (%) (Auto) 15.9L, Monocytes (%) (Auto) 7.5, Eosinophils (%) (Auto) 8.2H, Basophils (%) (Auto) 3.1H, Sodium Level 156H, Potassium Level 3.7, Chloride Level 120H, Carbon Dioxide Level 28, Anion Gap 8, Blood Urea Nitrogen 12, Creatinine 0.5L, Estimat Glomerular Filtration Rate > 60, Glucose Level 132H , Calcium Level 7.6L, Magnesium Level 1.8, Total Bilirubin 0.5, Aspartate Amino Transf (AST/SGOT) 177H, Alanine Aminotransferase (ALT/SGPT) 55, Alkaline Phosphatase 426H, Pro-B-Type Natriuretic Peptide 00556I, Total Protein 7.4, Albumin 1.3L, Globulin 6.1, Albumin/Globulin Ratio 0.2L Current Medications Medications (Trade) Dose Ordered Sig/Lucy Route PRN Reason Start Time Stop Time Status Last Admin Dose Admin Acetaminophen (Tylenol) 650 mg Q4H PRN GT Mild Pain (Pain Scale 1-3) 02/09/20 10:30 03/10/20 10:29 02/13/20 21:00 Ampicillin Sodium/ Sulbactam Sodium 3 gm/Sodium Chloride 110 ml @ 220 mls/hr Q6HR IVPB 02/14/20 12:00 02/21/20 11:59 02/16/20 11:04 Ascorbic Acid (Vitamin C) 250 mg TWICE A DAY ORAL 02/11/20 18:00 03/12/20 17:59 02/16/20 08:18 Clonidine HCl (Catapres Tab) 0.1 mg Q4H PRN GT For High Blood Pressure 02/09/20 13:45 05/09/20 13:44 Colistimethate Sodium (Colistin *inhalation use only*) 75 mg Q12HR@10,22 INH 02/13/20 15:00 02/20/20 14:59 02/16/20 10:36 Dextrose 1,000 ml @ 75 mls/hr [id number] IV 02/15/20 22:00 03/16/20 21:59 02/16/20 12:04 Diltiazem HCl (Cardizem Tab) 30 mg EVERY 6 HOURS ORAL 02/16/20 00:00 03/17/20 00:00 Diphenhydramine HCl (Benadryl) 25 mg Q6H PRN GT ITCHING 02/09/20 10:30 03/10/20 10:29 02/16/20 08:18 Diphenoxylate HCl/ Atropine (Lomotil) 2.5 mg Q6H PRN GT Diarrhea 02/13/20 11:00 03/14/20 10:59 Famotidine (Pepcid) 20 mg TWICE A DAY GT 02/09/20 11:00 05/09/20 10:59 02/16/20 08:18 Heparin Sodium (Porcine) (Heparin 5000 units/ml) 5,000 units EVERY 12 HOURS SUBQ 02/09/20 21:00 03/25/20 20:59 02/16/20 08:19 Lansoprazole (Prevacid) 30 mg DAILY GT 02/10/20 09:00 03/11/20 08:59 02/16/20 08:20 Levothyroxine Sodium (Synthroid) 75 mcg DAILY GT 02/12/20 09:00 03/11/20 08:59 02/16/20 08:18 Metoprolol Tartrate (Lopressor) 50 mg EVERY 12 HOURS GT 02/14/20 09:00 05/14/20 08:59 02/16/20 08:19 Vancomycin HCl (Vanco pharmacy to dose) 1 ea DAILY PRN MISC Per rx protocol 02/09/20 10:30 03/10/20 10:29 Vancomycin HCl 750 mg/Sodium Chloride 275 ml @ 183.333 mls/hr Q12HR@0600,1800 IVPB 02/09/20 18:00 02/16/20 17:59 02/16/20 06:07 Assessment/Plan Assessment/Plan Pulmonary Progress Note Subjective ROS Limited/Unobtainable: No Allergies: Coded Allergies: No Known Allergies (Unverified , 02/12/13) All Systems: reviewed and negative except above Subjective care noted vitals reviewed labs noted Objective Vital Signs Noted Objective GENERAL: The patient is an ill-appearing male. off the ventilator. HEENT: Negative. NECK: Supple. Tracheostomy midline. LUNGS: With moderate breath sounds. Scattered rhonchi. CARDIAC: S1 and S2. Regular rate and rhythm without murmurs, rubs, gallops. ABDOMEN: Soft, nontender, nondistended. G-tube in place. EXTREMITIES: No cyanosis, clubbing, or edema. Vann catheter in place. NEUROLOGICAL: Poorly responsive. reviewed and edited Microbiology Date/Time Source Procedure Growth Status 02/12/20 21:00 Blood Blood Culture - Preliminary NO GROWTH AFTER 48 HOURS Resulted 02/12/20 20:55 Blood Blood Culture - Preliminary Gram Positive Cocci Resulted 02/12/20 20:50 Nasopharynx SARS-CoV-2 RdRp Gene Assay - Final Complete Laboratory Tests Noted Assessment/Plan Assessment/Plan IMPRESSION: Possible sepsis, leukocytosis, anemia, severe protein-calorie malnutrition, respiratory failure, tracheostomy, possible pneumonia, COVID negative, BPH, urinary retention. PLAN respiratory care same aspiration precautions IV antibiotics check cultures await improvement in wbc off load suction as needed monitor oxygen needs impression, plan, and exam edited and reviewed in detail care discussed with Luis Felipe Andrea MD Feb 16, 2020 13:50
--- NOTE | 2020-02-16 14:30 | NUR ---
NURSE NOTES: Seen pt in bed in semi-ashford's position. Awake. Change linens and do dyan care. Pt repositioned. Pt BP rechecked 97/64 HR: 100. O2 sat 100%. Kept comfortable.
[2020-02-16 16:00] VITALS: BP 105/76
--- NOTE | 2020-02-16 19:15 | NUR ---
NURSE HAND-OFF REPORT: Important Events on Shift: Hypotension Patient Status: Stable Diet: Gtube feeding , glucerna 1.2 @60cc/hr Pending Orders: none Pending Results/Labs: none Pending MD notification: none Latest Vital Signs: Temperature 97.5 , Pulse 105 , B/P 105 /76 , Respiratory Rate 15 , O2 SAT 100 , Mechanical Ventilator, O2 Flow Rate 15.0 . Vital Sign Comment: BP stable went up to 105/76 EKG Rhythm: Sinus Tachycardia Rhythm change?: N MD Notified?: -N, MD previously aware MD Response: Message left await call Latest Hope Fall Score: 55 Fall Risk: High Risk Safety Measures: Call light Within Reach, Bed Alarm Zone 1, Side Rails Side Rails x3, Bed position Low and Locked. Fall Precautions: Y Yellow Socks Patient Fall Education Report given to . Josias HERNANDEZ,RN
--- NOTE | 2020-02-16 19:20 | NUR ---
NURSE NOTES: Received report from MAGI Herbert/ MAGI Osullivan. Patient asleep in bed, afebrile and no respiratory distress noted. On mech vent via trache Shiley 8, AC 14, TV 550, Fi02 30%, P5 saturating at 99-100%. With left AC 22g intact, patent and asymptomatic. On Glucerna at 60cc/hr via GT intact, no residual noted and infusing well. with Vann catheter to UB draining well w/o sediments. With Rectal tube in place draining well. On both soft wrist restraints. skin is intact no breakdown or redness noted, No paresthesia, palpable pulse noted. AROM on upper extremities done withotu any discomfort or pain. HOB elevated. Call light within reach. Bed rails are up and wheels are locked. Continue plan of care.
[2020-02-16 20:00] VITALS: BP 115/74
[2020-02-17] VITALS (7 sets, daily range): BP systolic 90–128; BP diastolic 60–81
--- NOTE | 2020-02-17 00:09 | NUR ---
NURSE NOTES: Pt was noted calm and relaxed watching Tv. DC the restraint. Pt not reaching for medical devices. Both wrist skin noted without any breakdown. palpable pulse and no paresthesia noted. Passive ROM done and pt tolerated well. Continue to monitor patient. MD made aware
--- NOTE | 2020-02-17 03:00 | NUR ---
NURSE NOTES: Pt was being cleaned, changed gown and linen. Pt started to get agitated and trying to pull catheter. Pt hands were held and provided relaxation and tv watching. Diversions were unsuccessful. Initiate both soft wrist restraint. Wrist skin is intact , no breakdown. palpable pulses and no paresthesia noted. Md made aware. Continue to monitor the patient.
--- NOTE | 2020-02-17 03:07 | Cardiology Progress Note ---
Subjective DATE OF SERVICE: Feb 16, 2020 On vent support Monitor: sinus tachycardia persists. Episodes of rapid atrial flutter noted as well - slowed with IV diltiazem. Troponin in low range without significant progression Has moderate secretions from trach. Still with diarrhea but decreasing - CDiff toxin negative Venous Duplex negative for DVT CXR (02/14) still with bilateral infiltrates Sodium levels significantly increasing Objective Last 24 Hour Vital Signs Date Time Temp Pulse Resp B/P (MAP) Pulse Ox O2 Delivery O2 Flow Rate FiO2 02/17/20 02:58 125 20 30 02/17/20 01:30 105 16 30 02/17/20 00:00 Mechanical Ventilator 02/17/20 00:00 98.2 107 19 103/78 (86) 100 02/16/20 23:41 108 02/16/20 23:27 106 103/70 02/16/20 23:01 110 19 100 Mechanical Ventilator 30 112 20 30 02/16/20 20:35 100 15 30 02/16/20 20:21 101 115/74 02/16/20 20:00 15.0 30 02/16/20 20:00 98.4 101 15 115/74 (88) 100 02/16/20 20:00 Mechanical Ventilator 02/16/20 19:33 117 02/16/20 19:30 106 15 30 02/16/20 16:52 105 15 30 02/16/20 16:07 Mechanical Ventilator 02/16/20 16:00 105 02/16/20 16:00 97.5 112 15 105/76 (86) 100 02/16/20 16:00 15.0 30 02/16/20 15:16 103 15 30 02/16/20 12:37 109 15 30 02/16/20 12:14 Mechanical Ventilator 02/16/20 12:13 101 02/16/20 12:12 15.0 30 02/16/20 12:00 99.0 98 16 87/60 (69) 100 02/16/20 11:06 101 88/60 02/16/20 10:36 98 15 100 Mechanical Ventilator 30 107 17 30 02/16/20 08:47 15.0 30 02/16/20 08:46 108 15 30 02/16/20 08:32 Mechanical Ventilator 02/16/20 08:19 115 111/70 02/16/20 08:00 110 02/16/20 08:00 98.2 115 15 111/70 (84) 100 02/16/20 07:32 120 20 30 02/16/20 06:00 112 96/65 02/16/20 04:00 Mechanical Ventilator 02/16/20 04:00 30 02/16/20 04:00 117 02/16/20 03:57 98.4 111 15 96/65 (75) 100 02/16/20 03:30 110 15 30 ROS: unchanged from my note of 02/09/20 HEENT: Mechanically Ventilated, Thick Trach secretions RHYTHM: ST LUNGS: bilateral rhonchi CARDIAC: regular rhythm, normal S1 and S2, rapid rate, gallop/S4 ABDOMEN: normal bowel sounds, non tender, soft, no organomegaly, G-Tube intact EXTREMITIES: non-tender, no calf tenderness, No edema Laboratory Tests Test 02/16/20 06:10 White Blood Count 4.0 K/UL (4.8-10.8) L Red Blood Count 2.97 M/UL (4.20-5.40) L Hemoglobin 8.7 G/DL (12.0-16.0) L Hematocrit 29.6 % (37.0-47.0) L Mean Corpuscular Volume 100 FL (80-99) H Mean Corpuscular Hemoglobin 29.4 PG (27.0-31.0) Mean Corpuscular Hemoglobin Concent 29.5 G/DL (32.0-36.0) L Red Cell Distribution Width 25.5 % (11.6-14.8) H Platelet Count 182 K/UL (150-450) Mean Platelet Volume 6.8 FL (6.5-10.1) Neutrophils (%) (Auto) 65.3 % (45.0-75.0) Lymphocytes (%) (Auto) 15.9 % (20.0-45.0) L Monocytes (%) (Auto) 7.5 % (1.0-10.0) Eosinophils (%) (Auto) 8.2 % (0.0-3.0) H Basophils (%) (Auto) 3.1 % (0.0-2.0) H Sodium Level 156 MMOL/L (136-145) H Potassium Level 3.7 MMOL/L (3.5-5.1) Chloride Level 120 MMOL/L (98-107) H Carbon Dioxide Level 28 MMOL/L (21-32) Anion Gap 8 mmol/L (5-15) Blood Urea Nitrogen 12 mg/dL (7-18) Creatinine 0.5 MG/DL (0.55-1.30) L Estimat Glomerular Filtration Rate > 60 mL/min (>60) Glucose Level 132 MG/DL (74-106) H Calcium Level 7.6 MG/DL (8.5-10.1) L Magnesium Level 1.8 MG/DL (1.8-2.4) Total Bilirubin 0.5 MG/DL (0.2-1.0) Aspartate Amino Transf (AST/SGOT) 177 U/L (15-37) H Alanine Aminotransferase (ALT/SGPT) 55 U/L (12-78) Alkaline Phosphatase 426 U/L (46-116) H Pro-B-Type Natriuretic Peptide 72522 pg/mL (0-125) H Total Protein 7.4 G/DL (6.4-8.2) Albumin 1.3 G/DL (3.4-5.0) L Globulin 6.1 g/dL Albumin/Globulin Ratio 0.2 (1.0-2.7) L Assessment/Plan Assessment/Plan Severe sepsis Diarrhea with negative CDiff [facility] polymicrobial PNA Polymicrobial UTI Respiratory failure with trach Sinus tachycardia Paroxysmal atrial flutter Acute myocardial ischemia with elevated troponin levels and possible NSTEMI Moderate protein calorie malnutrition Acute on chronic respiratory acidosis Sinus node disease Dehydration/hypernatremia CRITICAL & GUARDED Vent support Replace fluid and electrolyte losses; free water replacement and potassium advanced Abx Titrate beta mingo; add diltiazem DVT prophylaxis Nutritional support by GTUbe Monitor acid-base parameters and adjust settings. Luis Felipe Sorto MD Feb 17, 2020 03:07
[2020-02-17] MEDS: Ampicillin/Sulbactam Sod 3 GM in NS 110 ML IVPB SCH ×4 (05:00→23:12)
[2020-02-17] MEDS: dilTIAZem HCl 30mg tab ORAL SCH ×3 (05:26→17:39)
[2020-02-17] MEDS: Vancomycin 750mg/NS 275ml IVPB SCH ×4 (05:39→18:52)
--- NOTE | 2020-02-17 07:10 | NUR ---
NURSE HAND-OFF REPORT: Important Events on Shift: suction PRN oral secretions Patient Status: Stable Diet: Glucerna 1.2 at 60cc/hr Pending Orders: n Pending Results/Labs:n Pending MD notification:n Latest Vital Signs: Temperature 98.2 , Pulse 113 , B/P 103 /70 , Respiratory Rate 18 , O2 SAT 100 , Mechanical Ventilator, O2 Flow Rate 15.0 . Vital Sign Comment: n EKG Rhythm: Sinus Tachycardia Rhythm change?: N MD Notified?: - MD Response: Latest Hope Fall Score: 55 Fall Risk: High Risk Safety Measures: Call light Within Reach, Bed Alarm Zone 1, Side Rails Side Rails x3, Bed position Low and Locked. Fall Precautions: Yellow Socks Patient Fall Education Report given to MAGI Frausto.
--- NOTE | 2020-02-17 07:10 | NUR ---
NURSE NOTES: Received report MAGI Burgos. Pt in bed awake and orientedx1 and able to follow the simple direction and confused at times. IV site in let AC 22G running D5W @150ml/hr patent and asymptomatic. Side railsx3 up for safety. Call light within easy each. HOB elevated with 30 degree. G-tube running as ordered, patent and intact. On P200 mattress. Will continue to plan of care,
[2020-02-17 07:40] LABS: BASOPHILS % (AUTO) 1.4 % (0.0-2.0); EOSINOPHILS % (AUTO) 8.8 % (0.0-3.0); HEMATOCRIT 27.5 % (37.0-47.0); HEMOGLOBIN 8.1 G/DL (12.0-16.0); MEAN CORPUSCULAR VOLUME 101 FL (80-99); MONOCYTES % (AUTO) 8.5 % (1.0-10.0); NEUTROPHILS % (AUTO) 58.3 % (45.0-75.0); PLATELET COUNT 155 K/UL (150-450); RED BLOOD COUNT 2.74 M/UL (4.20-5.40); RED CELL DISTRIBUTION WIDTH 25.8 % (11.6-14.8); WHITE BLOOD COUNT 4.5 K/UL (4.8-10.8)
[2020-02-17 08:04] LABS: ANION GAP 10 mmol/L (5-15); BLOOD UREA NITROGEN 11 mg/dL (7-18); CALCIUM 7.3 MG/DL (8.5-10.1); CARBON DIOXIDE 27 MMOL/L (21-32); CHLORIDE 115 MMOL/L (98-107); CREATININE 0.6 MG/DL (0.55-1.30); POTASSIUM 3.2 MMOL/L (3.5-5.1); SODIUM 152 MMOL/L (136-145)
[2020-02-17] MEDS: Ascorbic Acid 500mg tab ORAL SCH ×2 (09:28→17:39)
--- NOTE | 2020-02-17 09:39 | General Progress Note ---
Assessment/Plan Assessment/Plan: Assessment/Plan: Assessment - Diarrhea - improved off of Mylanta - Resp failure - s/p trach - dysphagia - s/p PEG Recommendations - continue TF - GT care - elevate HOB - monitor stool output - d/c planning Subjective ROS Limited/Unobtainable: No Allergies: Coded Allergies: No Known Allergies (Unverified , 02/09/20) Objective Last 24 Hour Vital Signs Date Time Temp Pulse Resp B/P (MAP) Pulse Ox O2 Delivery O2 Flow Rate FiO2 02/17/20 09:36 118 15 100 Mechanical Ventilator 30 114 18 30 02/17/20 09:00 112 30 30 30 02/17/20 08:51 106 19 30 02/17/20 08:00 30 02/17/20 08:00 114 02/17/20 08:00 97.2 102 19 101/61 (74) 100 02/17/20 07:25 107 15 30 02/17/20 05:26 113 103/70 02/17/20 05:15 113 18 30 02/17/20 04:00 104 02/17/20 04:00 98.2 119 19 103/70 (81) 100 02/17/20 04:00 15.0 30 02/17/20 04:00 Mechanical Ventilator 02/17/20 02:58 125 20 30 02/17/20 01:30 105 16 30 02/17/20 00:00 Mechanical Ventilator 02/17/20 00:00 98.2 107 19 103/78 (86) 100 02/16/20 23:41 108 02/16/20 23:27 106 103/70 02/16/20 23:01 110 19 100 Mechanical Ventilator 30 112 20 30 02/16/20 20:35 100 15 30 02/16/20 20:21 101 115/74 02/16/20 20:00 15.0 30 02/16/20 20:00 98.4 101 15 115/74 (88) 100 02/16/20 20:00 Mechanical Ventilator 02/16/20 19:33 117 02/16/20 19:30 106 15 30 02/16/20 16:52 105 15 30 02/16/20 16:07 Mechanical Ventilator 02/16/20 16:00 105 02/16/20 16:00 97.5 112 15 105/76 (86) 100 02/16/20 16:00 15.0 30 02/16/20 15:16 103 15 30 02/16/20 12:37 109 15 30 02/16/20 12:14 Mechanical Ventilator 02/16/20 12:13 101 02/16/20 12:12 15.0 30 02/16/20 12:00 99.0 98 16 87/60 (69) 100 02/16/20 11:06 101 88/60 02/16/20 10:36 98 15 100 Mechanical Ventilator 30 107 17 30 Intake and Output 02/16/20 02/17/20 19:00 07:00 Intake Total 2164.999 ml 2277.333 ml Output Total 410 ml 600 ml Balance 1754.999 ml 1677.333 ml Intake Free Water 50 ml IV Total 2054.999 ml 1557.333 ml Tube Feeding 60 ml 720 ml Output Urine Total 400 ml 600 ml Stool Total 10 ml # Bowel Movements 50 100 Laboratory Tests 02/17/20 06:45: White Blood Count 4.5L, Red Blood Count 2.74L, Hemoglobin 8.1L, Hematocrit 27.5L , Mean Corpuscular Volume 101H, Mean Corpuscular Hemoglobin 29.4, Mean Corpuscular Hemoglobin Concent 29.3L, Red Cell Distribution Width 25.8H, Platelet Count 155, Mean Platelet Volume 7.1, Neutrophils (%) (Auto) 58.3, Lymphocytes (%) (Auto) 23.0, Monocytes (%) (Auto) 8.5, Eosinophils (%) (Auto) 8.8H, Basophils (%) (Auto) 1.4, Sodium Level 152H, Potassium Level 3.2L, Chloride Level 115H, Carbon Dioxide Level 27, Anion Gap 10, Blood Urea Nitrogen 11, Creatinine 0.6, Estimat Glomerular Filtration Rate > 60, Glucose Level 141H , Uric Acid 6.2, Calcium Level 7.3L, Magnesium Level 1.8, Troponin I 0.067H Height (Feet): 5 Height (Inches): 3.00 Weight (Pounds): 150 General Appearance: no apparent distress EENT: normal ENT inspection Neck: supple Cardiovascular: normal rate Respiratory/Chest: decreased breath sounds Abdomen: hypoactive bowel sounds Extremities: non-tender Dusty Zhang MD Feb 17, 2020 09:39
--- NOTE | 2020-02-17 09:39 | Surgery Progress Note ---
Surgery Progress Note Subjective Symptoms: improved, tolerating diet, voiding well, passing flatus Objective Last 24 Hour Vital Signs Date Time Temp Pulse Resp B/P (MAP) Pulse Ox O2 Delivery O2 Flow Rate FiO2 02/17/20 09:00 112 30 30 30 02/17/20 08:51 106 19 30 02/17/20 08:00 30 02/17/20 08:00 114 02/17/20 08:00 97.2 102 19 101/61 (74) 100 02/17/20 07:25 107 15 30 02/17/20 05:26 113 103/70 02/17/20 05:15 113 18 30 02/17/20 04:00 104 02/17/20 04:00 98.2 119 19 103/70 (81) 100 02/17/20 04:00 15.0 30 02/17/20 04:00 Mechanical Ventilator 02/17/20 02:58 125 20 30 02/17/20 01:30 105 16 30 02/17/20 00:00 Mechanical Ventilator 02/17/20 00:00 98.2 107 19 103/78 (86) 100 02/16/20 23:41 108 02/16/20 23:27 106 103/70 02/16/20 23:01 110 19 100 Mechanical Ventilator 30 112 20 30 02/16/20 20:35 100 15 30 02/16/20 20:21 101 115/74 02/16/20 20:00 15.0 30 02/16/20 20:00 98.4 101 15 115/74 (88) 100 02/16/20 20:00 Mechanical Ventilator 02/16/20 19:33 117 02/16/20 19:30 106 15 30 02/16/20 16:52 105 15 30 02/16/20 16:07 Mechanical Ventilator 02/16/20 16:00 105 02/16/20 16:00 97.5 112 15 105/76 (86) 100 02/16/20 16:00 15.0 30 02/16/20 15:16 103 15 30 02/16/20 12:37 109 15 30 02/16/20 12:14 Mechanical Ventilator 02/16/20 12:13 101 02/16/20 12:12 15.0 30 02/16/20 12:00 99.0 98 16 87/60 (69) 100 02/16/20 11:06 101 88/60 02/16/20 10:36 98 15 100 Mechanical Ventilator 30 107 17 30 I&O Intake and Output 02/16/20 02/17/20 19:00 07:00 Intake Total 2164.999 ml 2277.333 ml Output Total 410 ml 600 ml Balance 1754.999 ml 1677.333 ml Intake Free Water 50 ml IV Total 2054.999 ml 1557.333 ml Tube Feeding 60 ml 720 ml Output Urine Total 400 ml 600 ml Stool Total 10 ml # Bowel Movements 50 100 Dressing: dry Wound: clean Cardiovascular: RSR Respiratory: decreased breath sounds Abdomen: soft, non-tender, present bowel sounds Extremities: no tenderness, no cyanosis, pulses, other Laboratory Tests Test 02/17/20 06:45 White Blood Count 4.5 K/UL (4.8-10.8) L Red Blood Count 2.74 M/UL (4.20-5.40) L Hemoglobin 8.1 G/DL (12.0-16.0) L Hematocrit 27.5 % (37.0-47.0) L Mean Corpuscular Volume 101 FL (80-99) H Mean Corpuscular Hemoglobin 29.4 PG (27.0-31.0) Mean Corpuscular Hemoglobin Concent 29.3 G/DL (32.0-36.0) L Red Cell Distribution Width 25.8 % (11.6-14.8) H Platelet Count 155 K/UL (150-450) Mean Platelet Volume 7.1 FL (6.5-10.1) Neutrophils (%) (Auto) 58.3 % (45.0-75.0) Lymphocytes (%) (Auto) 23.0 % (20.0-45.0) Monocytes (%) (Auto) 8.5 % (1.0-10.0) Eosinophils (%) (Auto) 8.8 % (0.0-3.0) H Basophils (%) (Auto) 1.4 % (0.0-2.0) Sodium Level 152 MMOL/L (136-145) H Potassium Level 3.2 MMOL/L (3.5-5.1) L Chloride Level 115 MMOL/L (98-107) H Carbon Dioxide Level 27 MMOL/L (21-32) Anion Gap 10 mmol/L (5-15) Blood Urea Nitrogen 11 mg/dL (7-18) Creatinine 0.6 MG/DL (0.55-1.30) Estimat Glomerular Filtration Rate > 60 mL/min (>60) Glucose Level 141 MG/DL (74-106) H Uric Acid 6.2 MG/DL (2.6-7.2) Calcium Level 7.3 MG/DL (8.5-10.1) L Magnesium Level 1.8 MG/DL (1.8-2.4) Troponin I 0.067 ng/mL (0.000-0.056) Plan Problems: (1) Sepsis Assessment & Plan: Leukocytosis, anemia, lactic acidosis sepsis uro uti likely wounds noted and stable unlikely etiology nutritional optimization tf as tolerated vent support cxr noted d/cp marry improved placement DAILY ESTIMATED NEEDS: Needs based on Wound, critical care 52.3kg abw 25-30 kcals/kg 0581-8041 total kcals 1.25-2 g protein/kg 65-105 g total protein 25-30 mL/kg 4300-6553 total fluid mLs NUTRITION DIAGNOSIS: Increased kcal and pro needs r/t wound healing as evidenced by pt w/multiple full thickness wounds, refer to wound care eval, pt is bedbound trach and peg dep. CURRENT TF: Glucerna 1.2 @60ml/hr x20 hrs ENTERAL NUTRITION RECOMMENDATIONS: Maintain Glucerna 1.2 w/ goal of 60ml/hr x20 hrs to provide 1200ml, 1440 kcal, 72g pro, 966ml free H2O - Maintain current TF rate to meet 100% est needs - Rec added PROSOURCE 1 pack daily (11g pro) to better meet est pro needs - Flush per HOB over 30 degrees ADDITIONAL RECOMMENDATIONS: 1) Wound care: add GT BID + Vit C 250mg BID 2) Per SNF: 61 inches (5'1") and last wt 145 lbs/65.91kg Maintain calibrated bed scale wts w/ added P200 mattress 3) Rec NISS + accuchecks for improved BG (2) UTI (urinary tract infection) (3) Pneumonia (4) Decubitus skin ulcer Assessment & Plan: Pt presented on admission with Pressure Injuries, Tracheostomy,Alopecia, Generalized Hypopigmented Skin plaques. Few plaques noted to be open lesions but are pink and dry. Skin assessed under collar of trach and no areas of skin breakdown noted. Full thickness Pressure injury noted to R Buttocks(L)5.7cm x (W)1.7cm x (D) 0.3cm. Base of wound is 90% beefy-red,10% slough. Borders are macerated . surrounding dry skin with hypopigmented plaques. Full thickness Pressure injury L Buttocks(L)4.6cm x (W)4.5cm. Base of wound has clusters wounds with intertwining bridges. Wounds have mixed slough and jack appearances. Small amt serous exudate noted. Surrounding dry hypopigmented skin plaques. Proximally and in close proximity skin is denuded. Small pustule with surrounding erythema noted L Hallux(L)0.5cm x (W)0.6cm. NO changes in skin temp periwound. An area of hyperpigmentation from previous wound noted to medial/posterior R Heel. L Heel is otherwise boggy with non-blanching erythema. Reabsorbed DTPI L Heel(L)2.2cm x (W)2cm. Dry brown eschar at base of wound. NO erythema or fluctuance periwound. Unstageable Pressure injury L lateral Malleolus(L)0.7cm x (W)0.9cm. Base of wound has 100% slough.edges dry and adherent to base of wound. No erythema, induration,or fluctuance periwound. Tx.Plan: Cleanse wounds R and L Buttocks with Saline. Apply Therahoney to wounds. Apply Moisture Barrier Paste Periwound. Cover with Optifoam drsg Daily and prn. Apply Betadine to wound R Hallux. Cover with Optifoam drsg every 3 days and prn. Apply Betadine to L lateral Malleolus. Cover with Optifoam drsg. Change every 3 days and prn. Apply Cavilon Skin Barrier to both heels. Cover each heel with Optifoam drsg. Change every 7 days and prn. Reposition at least every 2hours or as tolerated. Off-load heels with pillow. APM/ELIDIA Mattress overlay. Zia Chung Feb 17, 2020 09:39
[2020-02-17] MEDS: Heparin 5000 units/ml inj SUBQ SCH ×2 (09:42→21:06)
[2020-02-17] MEDS: Metoprolol Tartrate 50mg tab GT SCH ×2 (09:44→21:00)
[2020-02-17] MEDS: Colistin for inhalation INH SCH ×2 (09:45→23:18)
--- NOTE | 2020-02-17 10:08 | NUR ---
RD ASSESSMENT & RECOMMENDATIONS SEE CARE ACTIVITY FOR COMPLETE ASSESSMENT DAILY ESTIMATED NEEDS: Needs based on Wound, critical care 52.3kg abw 25-30 kcals/kg 1087-0339 total kcals 1.25-2 g protein/kg 65-105 g total protein 25-30 mL/kg 8720-0141 total fluid mLs NUTRITION DIAGNOSIS: Increased kcal and pro needs r/t wound healing as evidenced by pt w/multiple full thickness wounds, refer to wound care eval, pt is bedbound trach and peg dep. CURRENT TF: Glucerna 1.2 @60ml/hr x20 hrs ENTERAL NUTRITION RECOMMENDATIONS: Maintain Glucerna 1.2 w/ goal of 60ml/hr x20 hrs to provide 1200ml, 1440 kcal, 72g pro, 966ml free H2O - Maintain current TF rate to meet 100% est needs - Rec added PROSOURCE 1 pack daily (11g pro) to better meet est pro needs - Flush per MD. HOB over 30 degrees W/ elev Na and D5 infusion of 150ml/hr, rec to lower Glucerna 1.2 to goal of 45ml/hr to provide 1080kcal per day + D5 @150 (612 kcal) to not exceed kcal needs. -> Add PROSOURCE 1 pack qdaily to meet pro needs. ADDITIONAL RECOMMENDATIONS: 1) Wound care: add GT BID + Vit C 250mg BID 2) Per SNF: 61 inches (5'1") and last wt 145 lbs/65.91kg Maintain calibrated bed scale wts w/ added P200 mattress 3) Rec NISS + accuchecks for improved BG 4) Replete lytes w/ diarrhea (K 3.2) -> add water flushes vs added D5% for elev Na (152).
--- NOTE | 2020-02-17 10:56 | Infectious Diseases Prog Note ---
Assessment/Plan Assessment/Plan A: 1. Acinetobacter pneumonia, COVID-19 rapid test was negative. 2. Respiratory failure, status post tracheostomy. 3. Urinary tract infection with ESBL E. coli & Proteus 4. MRSA sepsis 5. Sinus tachycardia PLAN: 1. Continue IV vancomycin and Colistin inhaler 2. Continue Unasyn 2. We will follow up cultures Subjective ROS Limited/Unobtainable: Yes Neurologic: Reports: other - on restraint Allergies: Coded Allergies: No Known Allergies (Unverified , 02/09/20) Objective Last 24 Hour Vital Signs Date Time Temp Pulse Resp B/P (MAP) Pulse Ox O2 Delivery O2 Flow Rate FiO2 02/17/20 09:44 120 128/81 02/17/20 09:43 120 19 128/81 (97) 100 02/17/20 09:38 100 02/17/20 09:36 118 15 100 Mechanical Ventilator 30 114 18 30 02/17/20 09:00 112 30 30 30 02/17/20 08:51 106 19 30 02/17/20 08:00 30 02/17/20 08:00 114 02/17/20 08:00 97.2 102 19 101/61 (74) 100 02/17/20 07:25 107 15 30 02/17/20 05:26 113 103/70 02/17/20 05:15 113 18 30 02/17/20 04:00 104 02/17/20 04:00 98.2 119 19 103/70 (81) 100 02/17/20 04:00 15.0 30 02/17/20 04:00 Mechanical Ventilator 02/17/20 02:58 125 20 30 02/17/20 01:30 105 16 30 02/17/20 00:00 Mechanical Ventilator 02/17/20 00:00 98.2 107 19 103/78 (86) 100 02/16/20 23:41 108 02/16/20 23:27 106 103/70 02/16/20 23:01 110 19 100 Mechanical Ventilator 30 112 20 30 02/16/20 20:35 100 15 30 02/16/20 20:21 101 115/74 02/16/20 20:00 15.0 30 02/16/20 20:00 98.4 101 15 115/74 (88) 100 02/16/20 20:00 Mechanical Ventilator 8/22/20 19:33 117 02/16/20 19:30 106 15 30 02/16/20 16:52 105 15 30 02/16/20 16:07 Mechanical Ventilator 02/16/20 16:00 105 02/16/20 16:00 97.5 112 15 105/76 (86) 100 02/16/20 16:00 15.0 30 02/16/20 15:16 103 15 30 02/16/20 12:37 109 15 30 02/16/20 12:14 Mechanical Ventilator 02/16/20 12:13 101 02/16/20 12:12 15.0 30 02/16/20 12:00 99.0 98 16 87/60 (69) 100 02/16/20 11:06 101 88/60 Height (Feet): 5 Height (Inches): 3.00 Weight (Pounds): 150 HEENT: status post trach Respiratory/Chest: decreased breath sounds, other - on ventilator Cardiovascular: tachycardia Abdomen: soft, non tender, other - GT feeding Extremities: other - edema Skin: ulcers, other - vitiligo & superficial ulcers Neurologic/Psychiatric: alert, responsive Laboratory Tests Test 02/17/20 06:45 White Blood Count 4.5 K/UL (4.8-10.8) L Red Blood Count 2.74 M/UL (4.20-5.40) L Hemoglobin 8.1 G/DL (12.0-16.0) L Hematocrit 27.5 % (37.0-47.0) L Mean Corpuscular Volume 101 FL (80-99) H Mean Corpuscular Hemoglobin 29.4 PG (27.0-31.0) Mean Corpuscular Hemoglobin Concent 29.3 G/DL (32.0-36.0) L Red Cell Distribution Width 25.8 % (11.6-14.8) H Platelet Count 155 K/UL (150-450) Mean Platelet Volume 7.1 FL (6.5-10.1) Neutrophils (%) (Auto) 58.3 % (45.0-75.0) Lymphocytes (%) (Auto) 23.0 % (20.0-45.0) Monocytes (%) (Auto) 8.5 % (1.0-10.0) Eosinophils (%) (Auto) 8.8 % (0.0-3.0) H Basophils (%) (Auto) 1.4 % (0.0-2.0) Sodium Level 152 MMOL/L (136-145) H Potassium Level 3.2 MMOL/L (3.5-5.1) L Chloride Level 115 MMOL/L (98-107) H Carbon Dioxide Level 27 MMOL/L (21-32) Anion Gap 10 mmol/L (5-15) Blood Urea Nitrogen 11 mg/dL (7-18) Creatinine 0.6 MG/DL (0.55-1.30) Estimat Glomerular Filtration Rate > 60 mL/min (>60) Glucose Level 141 MG/DL (74-106) H Uric Acid 6.2 MG/DL (2.6-7.2) Calcium Level 7.3 MG/DL (8.5-10.1) L Magnesium Level 1.8 MG/DL (1.8-2.4) Troponin I 0.067 ng/mL (0.000-0.056) Current Medications Medications (Trade) Dose Ordered Sig/Lucy Route PRN Reason Start Time Stop Time Status Last Admin Dose Admin Acetaminophen (Tylenol) 650 mg Q4H PRN GT Mild Pain (Pain Scale 1-3) 02/09/20 10:30 03/10/20 10:29 02/13/20 21:00 Ampicillin Sodium/ Sulbactam Sodium 3 gm/Sodium Chloride 110 ml @ 220 mls/hr Q6HR IVPB 02/14/20 12:00 02/21/20 11:59 02/17/20 05:00 Ascorbic Acid (Vitamin C) 250 mg TWICE A DAY ORAL 02/11/20 18:00 03/12/20 17:59 02/17/20 09:28 Clonidine HCl (Catapres Tab) 0.1 mg Q4H PRN GT For High Blood Pressure 02/09/20 13:45 05/09/20 13:44 Colistimethate Sodium (Colistin *inhalation use only*) 75 mg Q12HR@10,22 INH 02/13/20 15:00 02/21/20 10:01 02/17/20 09:45 Dextrose 1,000 ml @ 150 mls/hr Q6H40M IV 02/17/20 03:30 03/18/20 03:29 02/17/20 09:56 Diltiazem HCl (Cardizem Tab) 30 mg EVERY 6 HOURS ORAL 02/16/20 00:00 03/17/20 00:00 Diphenhydramine HCl (Benadryl) 25 mg Q6H PRN GT ITCHING 02/09/20 10:30 03/10/20 10:29 02/16/20 08:18 Diphenoxylate HCl/ Atropine (Lomotil) 2.5 mg Q6H PRN GT Diarrhea 02/13/20 11:00 03/14/20 10:59 Heparin Sodium (Porcine) (Heparin 5000 units/ml) 5,000 units EVERY 12 HOURS SUBQ 02/09/20 21:00 03/25/20 20:59 02/17/20 09:42 Lansoprazole (Prevacid) 30 mg DAILY GT 02/10/20 09:00 03/11/20 08:59 02/17/20 09:28 Levothyroxine Sodium (Synthroid) 75 mcg DAILY GT 02/12/20 09:00 03/11/20 08:59 02/17/20 09:29 Metoprolol Tartrate (Lopressor) 50 mg EVERY 12 HOURS GT 02/14/20 09:00 05/14/20 08:59 02/17/20 09:44 Vancomycin HCl ([facility] pharmacy to dose) 1 ea DAILY PRN MISC Per rx protocol 02/09/20 10:30 03/10/20 10:29 Vancomycin HCl 750 mg/Sodium Chloride 275 ml @ 183.333 mls/hr Q12HR@0600,1800 IVPB 02/09/20 18:00 02/19/20 17:59 02/17/20 05:39 Arnoldo West MD Feb 17, 2020 10:56
--- NOTE | 2020-02-17 11:10 | Pulmonology Progress Note ---
Subjective ROS Limited/Unobtainable: No Constitutional: Denies: fever Gastrointestinal/Abdominal: Reports: diarrhea Skin: Reports: other - itching Musculoskeletal: Reports: no symptoms Allergies: Coded Allergies: No Known Allergies (Unverified , 02/09/20) Objective Last 24 Hour Vital Signs Date Time Temp Pulse Resp B/P (MAP) Pulse Ox O2 Delivery O2 Flow Rate FiO2 02/17/20 09:44 120 128/81 02/17/20 09:43 120 19 128/81 (97) 100 02/17/20 09:38 100 02/17/20 09:36 118 15 100 Mechanical Ventilator 30 114 18 30 02/17/20 09:00 112 30 30 30 02/17/20 08:51 106 19 30 02/17/20 08:00 30 02/17/20 08:00 114 02/17/20 08:00 97.2 102 19 101/61 (74) 100 02/17/20 07:25 107 15 30 02/17/20 05:26 113 103/70 02/17/20 05:15 113 18 30 02/17/20 04:00 104 02/17/20 04:00 98.2 119 19 103/70 (81) 100 02/17/20 04:00 15.0 30 02/17/20 04:00 Mechanical Ventilator 02/17/20 02:58 125 20 30 02/17/20 01:30 105 16 30 02/17/20 00:00 Mechanical Ventilator 02/17/20 00:00 98.2 107 19 103/78 (86) 100 02/16/20 23:41 108 02/16/20 23:27 106 103/70 02/16/20 23:01 110 19 100 Mechanical Ventilator 30 112 20 30 02/16/20 20:35 100 15 30 02/16/20 20:21 101 115/74 02/16/20 20:00 15.0 30 02/16/20 20:00 98.4 101 15 115/74 (88) 100 02/16/20 20:00 Mechanical Ventilator 02/16/20 19:33 117 02/16/20 19:30 106 15 30 02/16/20 16:52 105 15 30 02/16/20 16:07 Mechanical Ventilator 02/16/20 16:00 105 02/16/20 16:00 97.5 112 15 105/76 (86) 100 8/22/20 16:00 15.0 30 02/16/20 15:16 103 15 30 02/16/20 12:37 109 15 30 02/16/20 12:14 Mechanical Ventilator 02/16/20 12:13 101 02/16/20 12:12 15.0 30 02/16/20 12:00 99.0 98 16 87/60 (69) 100 Intake and Output 02/16/20 02/17/20 19:00 07:00 Intake Total 2164.999 ml 2277.333 ml Output Total 410 ml 600 ml Balance 1754.999 ml 1677.333 ml Intake Free Water 50 ml IV Total 2054.999 ml 1557.333 ml Tube Feeding 60 ml 720 ml Output Urine Total 400 ml 600 ml Stool Total 10 ml # Bowel Movements 50 100 Laboratory Tests 02/17/20 06:45: White Blood Count 4.5L, Red Blood Count 2.74L, Hemoglobin 8.1L, Hematocrit 27.5L , Mean Corpuscular Volume 101H, Mean Corpuscular Hemoglobin 29.4, Mean Corpuscular Hemoglobin Concent 29.3L, Red Cell Distribution Width 25.8H, Platelet Count 155, Mean Platelet Volume 7.1, Neutrophils (%) (Auto) 58.3, Lymphocytes (%) (Auto) 23.0, Monocytes (%) (Auto) 8.5, Eosinophils (%) (Auto) 8.8H, Basophils (%) (Auto) 1.4, Sodium Level 152H, Potassium Level 3.2L, Chloride Level 115H, Carbon Dioxide Level 27, Anion Gap 10, Blood Urea Nitrogen 11, Creatinine 0.6, Estimat Glomerular Filtration Rate > 60, Glucose Level 141H , Uric Acid 6.2, Calcium Level 7.3L, Magnesium Level 1.8, Troponin I 0.067H Current Medications Medications (Trade) Dose Ordered Sig/Lucy Route PRN Reason Start Time Stop Time Status Last Admin Dose Admin Acetaminophen (Tylenol) 650 mg Q4H PRN GT Mild Pain (Pain Scale 1-3) 02/09/20 10:30 03/10/20 10:29 02/13/20 21:00 Ampicillin Sodium/ Sulbactam Sodium 3 gm/Sodium Chloride 110 ml @ 220 mls/hr Q6HR IVPB 02/14/20 12:00 02/21/20 11:59 02/17/20 05:00 Ascorbic Acid (Vitamin C) 250 mg TWICE A DAY ORAL 02/11/20 18:00 03/12/20 17:59 02/17/20 09:28 Clonidine HCl (Catapres Tab) 0.1 mg Q4H PRN GT For High Blood Pressure 02/09/20 13:45 05/09/20 13:44 Colistimethate Sodium (Colistin *inhalation use only*) 75 mg Q12HR@10,22 INH 02/13/20 15:00 02/21/20 10:01 02/17/20 09:45 Dextrose 1,000 ml @ 150 mls/hr Q6H40M IV 02/17/20 03:30 03/18/20 03:29 02/17/20 09:56 Diltiazem HCl (Cardizem Tab) 30 mg EVERY 6 HOURS ORAL 02/16/20 00:00 03/17/20 00:00 Diphenhydramine HCl (Benadryl) 25 mg Q6H PRN GT ITCHING 02/09/20 10:30 03/10/20 10:29 02/16/20 08:18 Diphenoxylate HCl/ Atropine (Lomotil) 2.5 mg Q6H PRN GT Diarrhea 02/13/20 11:00 03/14/20 10:59 Heparin Sodium (Porcine) (Heparin 5000 units/ml) 5,000 units EVERY 12 HOURS SUBQ 02/09/20 21:00 03/25/20 20:59 02/17/20 09:42 Lansoprazole (Prevacid) 30 mg DAILY GT 02/10/20 09:00 03/11/20 08:59 02/17/20 09:28 Levothyroxine Sodium (Synthroid) 75 mcg DAILY GT 02/12/20 09:00 03/11/20 08:59 02/17/20 09:29 Metoprolol Tartrate (Lopressor) 50 mg EVERY 12 HOURS GT 02/14/20 09:00 05/14/20 08:59 02/17/20 09:44 Vancomycin HCl (Vanco pharmacy to dose) 1 ea DAILY PRN MISC Per rx protocol 02/09/20 10:30 03/10/20 10:29 Vancomycin HCl 750 mg/Sodium Chloride 275 ml @ 183.333 mls/hr Q12HR@0600,1800 IVPB 02/09/20 18:00 02/19/20 17:59 02/17/20 05:39 Assessment/Plan Assessment/Plan Pulmonary Progress Note Subjective ROS Limited/Unobtainable: No Allergies: Coded Allergies: No Known Allergies (Unverified , 02/12/13) All Systems: reviewed and negative except above Subjective care noted vitals reviewed labs noted Objective Vital Signs Noted Objective GENERAL: The patient is an ill-appearing male. off the ventilator. HEENT: Negative. NECK: Supple. Tracheostomy midline. LUNGS: With moderate breath sounds. Scattered rhonchi. CARDIAC: S1 and S2. Regular rate and rhythm without murmurs, rubs, gallops. ABDOMEN: Soft, nontender, nondistended. G-tube in place. EXTREMITIES: No cyanosis, clubbing, or edema. Vann catheter in place. NEUROLOGICAL: Poorly responsive. reviewed and edited Microbiology Date/Time Source Procedure Growth Status 02/12/20 21:00 Blood Blood Culture - Preliminary NO GROWTH AFTER 48 HOURS Resulted 02/12/20 20:55 Blood Blood Culture - Preliminary Gram Positive Cocci Resulted 02/12/20 20:50 Nasopharynx SARS-CoV-2 RdRp Gene Assay - Final Complete Laboratory Tests Noted Assessment/Plan Assessment/Plan IMPRESSION: Possible sepsis, leukocytosis, anemia, severe protein-calorie malnutrition, respiratory failure, tracheostomy, possible pneumonia, COVID negative, BPH, urinary retention. PLAN supplement K respiratory care same aspiration precautions IV antibiotics check cultures await improvement in wbc off load suction as needed monitor oxygen needs impression, plan, and exam edited and reviewed in detail care discussed with MAGI Allen,Luis Felipe GOULD Feb 17, 2020 11:10
[2020-02-17] MEDS ORDERED: Tubing IV Secondary IV ONE (14:16)
[2020-02-17] MEDS ORDERED: NS 500ML ONE (14:16)
--- NOTE | 2020-02-17 14:47 | NUR ---
CASE MANAGEMENT:REVIEW 02/16/20 SI: SEPSIS. PNA. AMI 97.0 113 18 104/81 100% ON VENT SUPPORT W/30% FIO2 VIA TRACH h/h-8.1/27.5 NA+152 K-3.2 troponin(+) 0.067 IS: IV KCL Q1HR X2 BAGS IV AMPICILLIN Q6HRS IV VANCOMYCIN Q12 IVF@150/HR COLISTIN INH Q12 CARDIZEM GT Q6HRS LOPRESSOR GT Q12 HEPARIN SQ Q12 : STEP DOWN UNIT DCP: FROM [facility]
--- NOTE | 2020-02-17 19:10 | NUR ---
NURSE HAND-OFF REPORT: Important Events on Shift: K+ 3.2 TODAY Patient Status: Stable Diet: Glucerna 1.2 @60ml/hr for 20hrs. Pending Orders: N/A Pending Results/Labs:N/A Pending MD notification: N/A Latest Vital Signs: Temperature 97.9 , Pulse 114 , B/P 104 /70 , Respiratory Rate 17 , O2 SAT 100 , Mechanical Ventilator, O2 Flow Rate 15.0 . Vital Sign Comment: Stable EKG Rhythm: Sinus Tachycardia Rhythm change?: N MD Notified?: - MD Response: Message left await call Latest Hope Fall Score: 55 Fall Risk: High Risk Safety Measures: Call light Within Reach, Bed Alarm Zone 1, Side Rails Side Rails x3, Bed position Low and Locked. Fall Precautions: y Yellow Socks Patient Fall Education Report given to MAGI Malone.
--- NOTE | 2020-02-17 19:10 | NUR ---
NURSE NOTES: Received report from MAGI Frausto. Patient asleep in bed, afebrile and no respiratory distress noted. On mech vent via trache Shiley 8, AC 14, TV 550, Fi02 30%, P5 saturating at 99-100%. With left hand 22g intact, patent and asymptomatic. On Glucerna 1.2 at 60cc/hr via GT intact, no residual noted and infusing well. with Vann catheter to UB draining well w/o sediments. With Rectal tube in place draining well. On both soft wrist restraints. skin is intact no breakdown or redness noted, No paresthesia, palpable pulse noted. AROM on upper extremities done without any discomfort or pain. HOB elevated. Call light within reach. Bed rails are up and wheels are locked. Continue plan of care.
--- NOTE | 2020-02-17 23:12 | Cardiology Progress Note ---
Subjective DATE OF SERVICE: Feb 17, 2020 On vent support Monitor: sinus tachycardia persists. Episodes of rapid atrial flutter noted as well - slowed with IV diltiazem. Troponin in low range without significant progression Has moderate secretions from trach. Still with diarrhea but decreasing - CDiff toxin negative Venous Duplex negative for DVT CXR (02/14) still with bilateral infiltrates Sodium levels significantly increased - patient on hypotonice IVF Objective Last 24 Hour Vital Signs Date Time Temp Pulse Resp B/P (MAP) Pulse Ox O2 Delivery O2 Flow Rate FiO2 02/17/20 21:00 115 90/60 02/17/20 20:00 98.1 115 17 90/60 (70) 100 02/17/20 20:00 30 02/17/20 20:00 Mechanical Ventilator 02/17/20 19:30 111 17 30 02/17/20 19:15 112 02/17/20 17:39 114 104/70 02/17/20 17:16 114 17 30 02/17/20 16:00 Mechanical Ventilator 02/17/20 16:00 30 02/17/20 16:00 106 02/17/20 16:00 97.9 103 19 104/70 (81) 100 02/17/20 15:08 106 16 30 02/17/20 12:51 113 18 30 02/17/20 12:14 99 117/69 02/17/20 12:00 97.0 105 19 104/81 (89) 100 02/17/20 12:00 Mechanical Ventilator 02/17/20 12:00 30 02/17/20 12:00 105 02/17/20 11:10 102 17 30 02/17/20 09:44 120 128/81 02/17/20 09:43 120 19 128/81 (97) 100 02/17/20 09:38 100 02/17/20 09:36 118 15 100 Mechanical Ventilator 30 114 18 30 02/17/20 09:00 112 30 30 30 02/17/20 08:51 106 19 30 02/17/20 08:00 30 02/17/20 08:00 114 02/17/20 08:00 Mechanical Ventilator 02/17/20 08:00 97.2 102 19 101/61 (74) 100 02/17/20 07:25 107 15 30 02/17/20 05:26 113 103/70 8/23/20 05:15 113 18 30 02/17/20 04:00 104 02/17/20 04:00 98.2 119 19 103/70 (81) 100 02/17/20 04:00 15.0 30 02/17/20 04:00 Mechanical Ventilator 02/17/20 02:58 125 20 30 02/17/20 01:30 105 16 30 02/17/20 00:00 Mechanical Ventilator 02/17/20 00:00 98.2 107 19 103/78 (86) 100 02/16/20 23:41 108 02/16/20 23:27 106 103/70 ROS: unchanged from my note of 02/09/20 HEENT: Mechanically Ventilated, Thick Trach secretions RHYTHM: ST LUNGS: bilateral rhonchi CARDIAC: regular rhythm, normal S1 and S2, rapid rate, gallop/S4 ABDOMEN: normal bowel sounds, non tender, soft, no organomegaly, G-Tube intact EXTREMITIES: non-tender, no calf tenderness, No edema Laboratory Tests Test 02/17/20 06:45 White Blood Count 4.5 K/UL (4.8-10.8) L Red Blood Count 2.74 M/UL (4.20-5.40) L Hemoglobin 8.1 G/DL (12.0-16.0) L Hematocrit 27.5 % (37.0-47.0) L Mean Corpuscular Volume 101 FL (80-99) H Mean Corpuscular Hemoglobin 29.4 PG (27.0-31.0) Mean Corpuscular Hemoglobin Concent 29.3 G/DL (32.0-36.0) L Red Cell Distribution Width 25.8 % (11.6-14.8) H Platelet Count 155 K/UL (150-450) Mean Platelet Volume 7.1 FL (6.5-10.1) Neutrophils (%) (Auto) 58.3 % (45.0-75.0) Lymphocytes (%) (Auto) 23.0 % (20.0-45.0) Monocytes (%) (Auto) 8.5 % (1.0-10.0) Eosinophils (%) (Auto) 8.8 % (0.0-3.0) H Basophils (%) (Auto) 1.4 % (0.0-2.0) Sodium Level 152 MMOL/L (136-145) H Potassium Level 3.2 MMOL/L (3.5-5.1) L Chloride Level 115 MMOL/L (98-107) H Carbon Dioxide Level 27 MMOL/L (21-32) Anion Gap 10 mmol/L (5-15) Blood Urea Nitrogen 11 mg/dL (7-18) Creatinine 0.6 MG/DL (0.55-1.30) Estimat Glomerular Filtration Rate > 60 mL/min (>60) Glucose Level 141 MG/DL (74-106) H Uric Acid 6.2 MG/DL (2.6-7.2) Calcium Level 7.3 MG/DL (8.5-10.1) L Magnesium Level 1.8 MG/DL (1.8-2.4) Troponin I 0.067 ng/mL (0.000-0.056) Assessment/Plan Assessment/Plan Severe sepsis Diarrhea with negative [facility] [employer] [facility] polymicrobial PNA Polymicrobial UTI Respiratory failure with trach Sinus tachycardia Paroxysmal atrial flutter Acute myocardial ischemia with elevated troponin levels and possible NSTEMI Moderate protein calorie malnutrition Acute on chronic respiratory acidosis Sinus node disease Dehydration/hypernatremia CRITICAL & GUARDED Vent support Replace fluid and electrolyte losses; free water replacement on-going. Abx Titrate beta mingo; titrate diltiazem DVT prophylaxis Nutritional support by GTUbe Monitor acid-base parameters and adjust settings. Luis Felipe Sorto MD Feb 17, 2020 23:12
[2020-02-18] VITALS: BP 106/65
--- NOTE | 2020-02-18 01:00 | NUR ---
NURSE NOTES: Pt was given bed bath. Gown and linen were changed. Pt tolerated well. PT tried to grab catheter but was prevented. Bilateral wrist skin noted without any breakdown. Continue to monitor the patient
[2020-02-18 04:00] VITALS: BP 114/60
[2020-02-18] MEDS: Ampicillin/Sulbactam Sod 3 GM in NS 110 ML IVPB SCH ×4 (05:07→23:30)
[2020-02-18] MEDS: dilTIAZem HCl 30mg tab ORAL SCH ×5 (05:56→23:31)
[2020-02-18] MEDS: Vancomycin 750mg/NS 275ml IVPB SCH ×2 (05:56)
[2020-02-18 06:54] LABS: BASOPHILS % (AUTO) 1.5 % (0.0-2.0); EOSINOPHILS % (AUTO) 9.2 % (0.0-3.0); HEMATOCRIT 27.8 % (37.0-47.0); HEMOGLOBIN 8.1 G/DL (12.0-16.0); LYMPHOCYTES % (AUTO) 20.5 % (20.0-45.0); MEAN CORPUSCULAR VOLUME 100 FL (80-99); MONOCYTES % (AUTO) 8.1 % (1.0-10.0); NEUTROPHILS % (AUTO) 60.7 % (45.0-75.0); PLATELET COUNT 135 K/UL (150-450); RED BLOOD COUNT 2.76 M/UL (4.20-5.40); RED CELL DISTRIBUTION WIDTH 25.2 % (11.6-14.8); WHITE BLOOD COUNT 4.9 K/UL (4.8-10.8)
--- NOTE | 2020-02-18 07:15 | NUR ---
NURSE NOTES: Received report MAGI Burgos. Pt in bed awake and orientedx1 or 2 and able to follow the simple direction and confused at times. IV site in left hand 22G running D5W @150ml/hr patent and asymptomatic. Side railsx3 up for safety. On P200 mattress. Call light within easy each. HOB elevated with 30 degree. G-tube running with Glucerna 1.2 @60ml/hr as ordered, patent and intact. Call light within easy reach. On rectal tube and draining with yellow brown color liquid bowel movement. Will continue to plan of care.
--- NOTE | 2020-02-18 07:15 | NUR ---
NURSE HAND-OFF REPORT: Important Events on Shift: low BP Patient Status: Stable and asleep Diet: Glucerna 1.2 at 60cc/hr Pending Orders: n Pending Results/Labs: y Pending MD notification: n ( md aware already of low bp episodes) Latest Vital Signs: Temperature 98.2 , Pulse 111 , B/P 114 /60 , Respiratory Rate 16 , O2 SAT 100 , Mechanical Ventilator, O2 Flow Rate 15.0 . Vital Sign Comment: EKG Rhythm: Sinus Tachycardia Rhythm change?: N MD Notified?: - MD Response: Latest Hope Fall Score: 55 Fall Risk: High Risk Safety Measures: Call light Within Reach, Bed Alarm Zone 1, Side Rails Side Rails x3, Bed position Low and Locked. Fall Precautions: Yellow Socks Patient Fall Education Report given to MAGI Frausto.
[2020-02-18 07:53] VITALS: BP 98/58
--- NOTE | 2020-02-18 08:00 | General Progress Note ---
Assessment/Plan Assessment/Plan: diarrhea respiratory failure trach sinus tachycardia anemia wounds dermatitis bacteremia UTI MRSA and VRE colonized PLAN gi follow up iv antibiotics ID noted IV hydration- dc wound care all consultants appreciated remains ill proceed with CT chest monitor heart rate/ still high/ d/w cards continue to monitor and remains unstable to return to SNF impression, plan, and exam edited and reviewed in detail care discussed with RN Subjective ROS Limited/Unobtainable: Yes Allergies: Coded Allergies: No Known Allergies (Unverified , 02/09/20) Subjective JAMES care reviewed still tachycardic but better still with significant infiltrates cards noted Objective Last 24 Hour Vital Signs Date Time Temp Pulse Resp B/P (MAP) Pulse Ox O2 Delivery O2 Flow Rate FiO2 02/18/20 07:53 98.2 107 16 98/58 (71) 100 02/18/20 05:56 111 114/60 02/18/20 04:00 98.2 111 16 114/60 (78) 100 02/18/20 04:00 Mechanical Ventilator 02/18/20 04:00 30 02/18/20 03:32 110 02/18/20 03:30 108 19 30 02/18/20 00:00 98 106/65 02/18/20 00:00 30 02/18/20 00:00 Mechanical Ventilator 02/18/20 00:00 98.1 98 16 106/65 (79) 100 02/17/20 23:28 101 02/17/20 23:18 103 18 100 Mechanical Ventilator 30 108 19 30 02/17/20 21:00 115 90/60 02/17/20 20:00 98.1 115 17 90/60 (70) 100 02/17/20 20:00 30 02/17/20 20:00 Mechanical Ventilator 02/17/20 19:30 111 17 30 02/17/20 19:15 112 02/17/20 17:39 114 104/70 02/17/20 17:16 114 17 30 02/17/20 16:00 Mechanical Ventilator 02/17/20 16:00 30 02/17/20 16:00 106 02/17/20 16:00 97.9 103 19 104/70 (81) 100 02/17/20 15:08 106 16 30 02/17/20 12:51 113 18 30 02/17/20 12:14 99 117/69 02/17/20 12:00 97.0 105 19 104/81 (89) 100 02/17/20 12:00 Mechanical Ventilator 02/17/20 12:00 30 02/17/20 12:00 105 02/17/20 11:10 102 17 30 02/17/20 09:44 120 128/81 02/17/20 09:43 120 19 128/81 (97) 100 02/17/20 09:38 100 02/17/20 09:36 118 15 100 Mechanical Ventilator 30 114 18 30 02/17/20 09:00 112 30 30 30 02/17/20 08:51 106 19 30 02/17/20 08:00 30 02/17/20 08:00 114 02/17/20 08:00 Mechanical Ventilator 02/17/20 08:00 97.2 102 19 101/61 (74) 100 Intake and Output 02/17/20 02/18/20 19:00 07:00 Intake Total 2716.667 ml 2822.666 ml Output Total 530 ml 400 ml Balance 2186.667 ml 2422.666 ml Intake Free Water 30 ml IV Total 2236.667 ml 2132.666 ml Tube Feeding 480 ml 660 ml Output Urine Total 450 ml 300 ml Stool Total 80 ml 100 ml Laboratory Tests 02/18/20 03:38: White Blood Count 4.9, Red Blood Count 2.76L, Hemoglobin 8.1L, Hematocrit 27.8L , Mean Corpuscular Volume 100H, Mean Corpuscular Hemoglobin 29.2, Mean Corpuscular Hemoglobin Concent 29.1L, Red Cell Distribution Width 25.2H, Platelet Count 135L, Mean Platelet Volume 6.8, Neutrophils (%) (Auto) 60.7, Lymphocytes (%) (Auto) 20.5, Monocytes (%) (Auto) 8.1, Eosinophils (%) (Auto) 9.2H, Basophils (%) (Auto) 1.5, Sodium Level [Pending], Potassium Level [Pending ], Chloride Level [Pending], Carbon Dioxide Level [Pending], Blood Urea Nitrogen [Pending], Creatinine [Pending], Estimat Glomerular Filtration Rate [ Pending], Glucose Level [Pending], Calcium Level [Pending], Magnesium Level [ Pending], Total Bilirubin [Pending], Aspartate Amino Transf (AST/SGOT) [Pending] , Alanine Aminotransferase (ALT/SGPT) [Pending], Alkaline Phosphatase [Pending] , Total Protein [Pending], Albumin [Pending], Globulin [Pending] Height (Feet): 5 Height (Inches): 3.00 Weight (Pounds): 155 Objective WDWN NAD trach clear breath sounds bilaterally without rhonchi or wheeze [id number] without MRG NABS nontender GT no CCE nonfocal chronic rash Stevenson Medina MD Feb 18, 2020 08:00
[2020-02-18 08:05] LABS: ALANINE AMINOTRANSFERASE 32 U/L (12-78); ALBUMIN 1.4 G/DL (3.4-5.0); ALBUMIN/GLOBULIN RATIO 0.2 (1.0-2.7); ALKALINE PHOSPHATASE 329 U/L (46-116); ANION GAP 16 mmol/L (5-15); ASPARTATE AMINO TRANSFERASE 69 U/L (15-37); BILIRUBIN,TOTAL 0.3 MG/DL (0.2-1.0); BLOOD UREA NITROGEN 10 mg/dL (7-18); CALCIUM 7.4 MG/DL (8.5-10.1); CARBON DIOXIDE 22 MMOL/L (21-32); CHLORIDE 108 MMOL/L (98-107); CREATININE 0.5 MG/DL (0.55-1.30); POTASSIUM 3.3 MMOL/L (3.5-5.1); SODIUM 146 MMOL/L (136-145)
--- NOTE | 2020-02-18 08:47 | NUR ---
HAND-OFF: Report given to MAGI Yang. Pt remains stable.
[2020-02-18] MEDS: Metoprolol Tartrate 50mg tab GT SCH ×2 (09:00→20:40)
[2020-02-18] MEDS: Heparin 5000 units/ml inj SUBQ SCH ×2 (09:00→21:00)
[2020-02-18] MEDS: Ascorbic Acid 500mg tab ORAL SCH ×2 (09:14→18:00)
[2020-02-18] MEDS: Colistin for inhalation INH SCH (10:58)
--- NOTE | 2020-02-18 11:38 | Infectious Diseases Prog Note ---
"Assessment/Plan Assessment/Plan antibiotics : vancomycin iv, unasyn, inhaled colistin A 1. acenitobacter pneumonia COVID 19 negative 2. proteus | e.coli UTI 3. MRSA sepsis r/o endocarditis 4. breast cancer 5. respiratory failure P 1. continue iv vancomycin 2. continue unasyn 2 more days 3. d/c inhaled colsitin 4, will follow up cultures Subjective ROS Limited/Unobtainable: Yes Allergies: Coded Allergies: No Known Allergies (Unverified , 02/09/20) Objective Last 24 Hour Vital Signs Date Time Temp Pulse Resp B/P (MAP) Pulse Ox O2 Delivery O2 Flow Rate FiO2 02/18/20 10:58 105 18 100 Mechanical Ventilator 30 110 16 30 02/18/20 09:00 101 98/58 02/18/20 08:45 101 15 30 02/18/20 08:00 Mechanical Ventilator 02/18/20 08:00 30 02/18/20 07:53 98.2 107 16 98/58 (71) 100 02/18/20 07:27 110 19 30 02/18/20 05:56 111 114/60 02/18/20 04:00 98.2 111 16 114/60 (78) 100 02/18/20 04:00 Mechanical Ventilator 02/18/20 04:00 30 02/18/20 03:32 110 02/18/20 03:30 108 19 30 02/18/20 00:00 98 106/65 02/18/20 00:00 30 02/18/20 00:00 Mechanical Ventilator 02/18/20 00:00 98.1 98 16 106/65 (79) 100 02/17/20 23:28 101 02/17/20 23:18 103 18 100 Mechanical Ventilator 30 108 19 30 02/17/20 21:00 115 90/60 02/17/20 20:00 98.1 115 17 90/60 (70) 100 02/17/20 20:00 30 02/17/20 20:00 Mechanical Ventilator 02/17/20 19:30 111 17 30 02/17/20 19:15 112 02/17/20 17:39 114 104/70 02/17/20 17:16 114 17 30 02/17/20 16:00 Mechanical Ventilator 02/17/20 16:00 30 02/17/20 16:00 106 02/17/20 16:00 97.9 103 19 104/70 (81) 100 02/17/20 15:08 106 16 30 02/17/20 12:51 113 18 30 02/17/20 12:14 99 117/69 02/17/20 12:00 97.0 105 19 104/81 (89) 100 02/17/20 12:00 Mechanical Ventilator 02/17/20 12:00 30 02/17/20 12:00 105 Height (Feet): 5 Height (Inches): 3.00 Weight (Pounds): 155 HEENT: status post trach Respiratory/Chest: lungs clear Cardiovascular: normal rate, regular rhythm, no gallop/murmur Abdomen: soft, non tender, other - GT Extremities: no edema Laboratory Tests Test 02/18/20 03:38 White Blood Count 4.9 K/UL (4.8-10.8) Red Blood Count 2.76 M/UL (4.20-5.40) L Hemoglobin 8.1 G/DL (12.0-16.0) L Hematocrit 27.8 % (37.0-47.0) L Mean Corpuscular Volume 100 FL (80-99) H Mean Corpuscular Hemoglobin 29.2 PG (27.0-31.0) Mean Corpuscular Hemoglobin Concent 29.1 G/DL (32.0-36.0) L Red Cell Distribution Width 25.2 % (11.6-14.8) H Platelet Count 135 K/UL (150-450) L Mean Platelet Volume 6.8 FL (6.5-10.1) Neutrophils (%) (Auto) 60.7 % (45.0-75.0) Lymphocytes (%) (Auto) 20.5 % (20.0-45.0) Monocytes (%) (Auto) 8.1 % (1.0-10.0) Eosinophils (%) (Auto) 9.2 % (0.0-3.0) H Basophils (%) (Auto) 1.5 % (0.0-2.0) Sodium Level 146 MMOL/L (136-145) H Potassium Level 3.3 MMOL/L (3.5-5.1) L Chloride Level 108 MMOL/L (98-107) H Carbon Dioxide Level 22 MMOL/L (21-32) Anion Gap 16 mmol/L (5-15) H Blood Urea Nitrogen 10 mg/dL (7-18) Creatinine 0.5 MG/DL (0.55-1.30) L Estimat Glomerular Filtration Rate > 60 mL/min (>60) Glucose Level 124 MG/DL (74-106) H Calcium Level 7.4 MG/DL (8.5-10.1) L Magnesium Level 1.8 MG/DL (1.8-2.4) Total Bilirubin 0.3 MG/DL (0.2-1.0) Aspartate Amino Transf (AST/SGOT) 69 U/L (15-37) H Alanine Aminotransferase (ALT/SGPT) 32 U/L (12-78) Alkaline Phosphatase 329 U/L (46-116) H Total Protein 7.6 G/DL (6.4-8.2) Albumin 1.4 G/DL (3.4-5.0) L Globulin 6.2 g/dL Albumin/Globulin Ratio 0.2 (1.0-2.7) L Current Medications Medications (Trade) Dose Ordered Sig/Lucy Route PRN Reason Start Time Stop Time Status Last Admin Dose Admin Acetaminophen (Tylenol) 650 mg Q4H PRN GT Mild Pain (Pain Scale 1-3) 02/09/20 10:30 03/10/20 10:29 02/13/20 21:00 Ampicillin Sodium/ Sulbactam Sodium 3 gm/Sodium Chloride 110 ml @ 220 mls/hr Q6HR IVPB 02/14/20 12:00 02/21/20 11:59 02/18/20 05:07 Ascorbic Acid (Vitamin C) 250 mg TWICE A DAY ORAL 02/11/20 18:00 03/12/20 17:59 02/18/20 09:14 Clonidine HCl (Catapres Tab) 0.1 mg Q4H PRN GT For High Blood Pressure 02/09/20 13:45 05/09/20 13:44 Colistimethate Sodium (Colistin *inhalation use only*) 75 mg Q12HR@10,22 INH 02/13/20 15:00 02/21/20 10:01 02/18/20 10:58 Dextrose 1,000 ml @ 150 mls/hr Q6H40M IV 02/17/20 03:30 03/18/20 03:29 02/18/20 05:57 Diltiazem HCl (Cardizem Tab) 30 mg EVERY 6 HOURS ORAL 02/16/20 00:00 03/17/20 00:00 02/17/20 17:39 Diphenhydramine HCl (Benadryl) 25 mg Q6H PRN GT ITCHING 02/09/20 10:30 03/10/20 10:29 02/16/20 08:18 Diphenoxylate HCl/ Atropine (Lomotil) 2.5 mg Q6H PRN GT Diarrhea 02/13/20 11:00 03/14/20 10:59 Heparin Sodium (Porcine) (Heparin 5000 units/ml) 5,000 units EVERY 12 HOURS SUBQ 02/09/20 21:00 03/25/20 20:59 02/17/20 21:06 Lansoprazole (Prevacid) 30 mg DAILY GT 02/10/20 09:00 03/11/20 08:59 02/18/20 09:14 Levothyroxine Sodium (Synthroid) 75 mcg DAILY GT 02/12/20 09:00 03/11/20 08:59 02/18/20 09:14 Metoprolol Tartrate (Lopressor) 50 mg EVERY 12 HOURS GT 02/14/20 09:00 05/14/20 08:59 02/17/20 09:44 Vancomycin HCl (Vanc pharmacy to dose) 1 ea DAILY PRN MISC Per rx protocol 02/09/20 10:30 03/10/20 10:29 Vancomycin HCl 750 mg/Sodium Chloride 275 ml @ 183.333 mls/hr Q12HR@0600,1800 IVPB 02/09/20 18:00 02/19/20 17:59 02/18/20 05:56 Hong Camacho MD Feb 18, 2020 11:38"
[2020-02-18 12:00] VITALS: BP 94/60
--- NOTE | 2020-02-18 12:14 | Surgery Progress Note ---
Surgery Progress Note Subjective Additional Comments no acute events comfortable stable no n/v/f/c Objective Last 24 Hour Vital Signs Date Time Temp Pulse Resp B/P (MAP) Pulse Ox O2 Delivery O2 Flow Rate FiO2 02/18/20 12:00 Mechanical Ventilator 02/18/20 12:00 30 02/18/20 10:58 105 18 100 Mechanical Ventilator 30 110 16 30 02/18/20 09:00 101 98/58 02/18/20 08:45 101 15 30 02/18/20 08:00 Mechanical Ventilator 02/18/20 08:00 30 02/18/20 08:00 104 02/18/20 07:53 98.2 107 16 98/58 (71) 100 02/18/20 07:27 110 19 30 02/18/20 05:56 111 114/60 02/18/20 04:00 98.2 111 16 114/60 (78) 100 02/18/20 04:00 Mechanical Ventilator 02/18/20 04:00 30 02/18/20 03:32 110 02/18/20 03:30 108 19 30 02/18/20 00:00 98 106/65 02/18/20 00:00 30 02/18/20 00:00 Mechanical Ventilator 02/18/20 00:00 98.1 98 16 106/65 (79) 100 02/17/20 23:28 101 02/17/20 23:18 103 18 100 Mechanical Ventilator 30 108 19 30 02/17/20 21:00 115 90/60 02/17/20 20:00 98.1 115 17 90/60 (70) 100 02/17/20 20:00 30 02/17/20 20:00 Mechanical Ventilator 02/17/20 19:30 111 17 30 02/17/20 19:15 112 02/17/20 17:39 114 104/70 02/17/20 17:16 114 17 30 02/17/20 16:00 Mechanical Ventilator 02/17/20 16:00 30 02/17/20 16:00 106 02/17/20 16:00 97.9 103 19 104/70 (81) 100 02/17/20 15:08 106 16 30 02/17/20 12:51 113 18 30 02/17/20 12:14 99 117/69 I&O Intake and Output 02/17/20 02/18/20 19:00 07:00 Intake Total 2716.667 ml 2822.666 ml Output Total 530 ml 400 ml Balance 2186.667 ml 2422.666 ml Intake Free Water 30 ml IV Total 2236.667 ml 2132.666 ml Tube Feeding 480 ml 660 ml Output Urine Total 450 ml 300 ml Stool Total 80 ml 100 ml Dressing: other Wound: other Cardiovascular: RSR Respiratory: decreased breath sounds Abdomen: soft, non-tender, present bowel sounds Extremities: no tenderness, no cyanosis Laboratory Tests Test 02/18/20 03:38 White Blood Count 4.9 K/UL (4.8-10.8) Red Blood Count 2.76 M/UL (4.20-5.40) L Hemoglobin 8.1 G/DL (12.0-16.0) L Hematocrit 27.8 % (37.0-47.0) L Mean Corpuscular Volume 100 FL (80-99) H Mean Corpuscular Hemoglobin 29.2 PG (27.0-31.0) Mean Corpuscular Hemoglobin Concent 29.1 G/DL (32.0-36.0) L Red Cell Distribution Width 25.2 % (11.6-14.8) H Platelet Count 135 K/UL (150-450) L Mean Platelet Volume 6.8 FL (6.5-10.1) Neutrophils (%) (Auto) 60.7 % (45.0-75.0) Lymphocytes (%) (Auto) 20.5 % (20.0-45.0) Monocytes (%) (Auto) 8.1 % (1.0-10.0) Eosinophils (%) (Auto) 9.2 % (0.0-3.0) H Basophils (%) (Auto) 1.5 % (0.0-2.0) Sodium Level 146 MMOL/L (136-145) H Potassium Level 3.3 MMOL/L (3.5-5.1) L Chloride Level 108 MMOL/L (98-107) H Carbon Dioxide Level 22 MMOL/L (21-32) Anion Gap 16 mmol/L (5-15) H Blood Urea Nitrogen 10 mg/dL (7-18) Creatinine 0.5 MG/DL (0.55-1.30) L Estimat Glomerular Filtration Rate > 60 mL/min (>60) Glucose Level 124 MG/DL (74-106) H Calcium Level 7.4 MG/DL (8.5-10.1) L Magnesium Level 1.8 MG/DL (1.8-2.4) Total Bilirubin 0.3 MG/DL (0.2-1.0) Aspartate Amino Transf (AST/SGOT) 69 U/L (15-37) H Alanine Aminotransferase (ALT/SGPT) 32 U/L (12-78) Alkaline Phosphatase 329 U/L (46-116) H Total Protein 7.6 G/DL (6.4-8.2) Albumin 1.4 G/DL (3.4-5.0) L Globulin 6.2 g/dL Albumin/Globulin Ratio 0.2 (1.0-2.7) L Plan Problems: (1) Sepsis Assessment & Plan: Leukocytosis, anemia, lactic acidosis sepsis uro uti likely wounds noted and stable unlikely etiology nutritional optimization tf as tolerated vent support cxr noted d/cp marry improved placement DAILY ESTIMATED NEEDS: Needs based on Wound, critical care 52.3kg abw 25-30 kcals/kg 5219-0488 total kcals 1.25-2 g protein/kg 65-105 g total protein 25-30 mL/kg 2557-3570 total fluid mLs NUTRITION DIAGNOSIS: Increased kcal and pro needs r/t wound healing as evidenced by pt w/multiple full thickness wounds, refer to wound care eval, pt is bedbound trach and peg dep. CURRENT TF: Glucerna 1.2 @60ml/hr x20 hrs ENTERAL NUTRITION RECOMMENDATIONS: Maintain Glucerna 1.2 w/ goal of 60ml/hr x20 hrs to provide 1200ml, 1440 kcal, 72g pro, 966ml free H2O - Maintain current TF rate to meet 100% est needs - Rec added PROSOURCE 1 pack daily (11g pro) to better meet est pro needs - Flush per HOB over 30 degrees ADDITIONAL RECOMMENDATIONS: 1) Wound care: add GT BID + Vit C 250mg BID 2) Per SNF: 61 inches (5'1") and last wt 145 lbs/65.91kg Maintain calibrated bed scale wts w/ added P200 mattress 3) Rec NISS + accuchecks for improved BG (2) UTI (urinary tract infection) (3) Pneumonia (4) Decubitus skin ulcer Assessment & Plan: Pt presented on admission with Pressure Injuries, Tracheostomy,Alopecia, Generalized Hypopigmented Skin plaques. Few plaques noted to be open lesions but are pink and dry. Skin assessed under collar of trach and no areas of skin breakdown noted. Full thickness Pressure injury noted to R Buttocks(L)5.7cm x (W)1.7cm x (D) 0.3cm. Base of wound is 90% beefy-red,10% slough. Borders are macerated . surrounding dry skin with hypopigmented plaques. Full thickness Pressure injury L Buttocks(L)4.6cm x (W)4.5cm. Base of wound has clusters wounds with intertwining bridges. Wounds have mixed slough and jack appearances. Small amt serous exudate noted. Surrounding dry hypopigmented skin plaques. Proximally and in close proximity skin is denuded. Small pustule with surrounding erythema noted L Hallux(L)0.5cm x (W)0.6cm. NO changes in skin temp periwound. An area of hyperpigmentation from previous wound noted to medial/posterior R Heel. L Heel is otherwise boggy with non-blanching erythema. Reabsorbed DTPI L Heel(L)2.2cm x (W)2cm. Dry brown eschar at base of wound. NO erythema or fluctuance periwound. Unstageable Pressure injury L lateral Malleolus(L)0.7cm x (W)0.9cm. Base of wound has 100% slough.edges dry and adherent to base of wound. No erythema, induration,or fluctuance periwound. Tx.Plan: Cleanse wounds R and L Buttocks with Saline. Apply Therahoney to wounds. Apply Moisture Barrier Paste Periwound. Cover with Optifoam drsg Daily and prn. Apply Betadine to wound R Hallux. Cover with Optifoam drsg every 3 days and prn. Apply Betadine to L lateral Malleolus. Cover with Optifoam drsg. Change every 3 days and prn. Apply Cavilon Skin Barrier to both heels. Cover each heel with Optifoam drsg. Change every 7 days and prn. Reposition at least every 2hours or as tolerated. Off-load heels with pillow. APM/ELIDIA Mattress overlay. Zia Chung Feb 18, 2020 12:14
--- NOTE | 2020-02-18 14:34 | NUR ---
CASE MANAGEMENT: REVIEW SI: RESP FAILURE . E-COLI UTI . T 97.7 HR 106 RR 16 BP 94/60 SAT 100% MECH VENT FIO2 30 H/H 8.1/27.8 NA 146+ K 3.3 ALK PHOS 329 TROP I 0.067 IS: D5W IVF @ 150ML/HR CARDIZEM PO Q6HR UNASYN IV Q6HR LOPRESSOR GT Q12HR VANCOMYCIN IV Q12HR STEP DOWN UNIT STATUS DCP: PATIENT IS FROM [facility]
--- NOTE | 2020-02-18 14:54 | NUR ---
INSURANCE CLINICALS AND REVIEW HAVE BEEN FAXED TO [facility] P: [phone] F: [phone] AUTH# [id number]
[2020-02-18 16:00] VITALS: BP 98/64
--- NOTE | 2020-02-18 17:57 | Diagnostic Imaging Report ---
Clinical Indication: Shortness of breath Technique: Spiral acquisitions obtained through the chest. No IV contrast utilized, reason not stated. Multiplanar reconstructions generated. Total dose length product 264 mGycm. CTDIvol(s) 7 mGy. Dose reduction achieved using automated exposure control Comparison: none Findings: There is a tracheostomy. There are large bilateral pleural effusions, right slightly larger than the left. There is compressive atelectasis of much of both lower lobes. Extensive confluent and nodular consolidative opacities are seen scattered throughout the lungs bilaterally. The underlying aerated parenchyma demonstrates hazy parenchymal opacity and there is also interstitial congestion. The heart is enlarged. There is a pericardial effusion. No mediastinal or hilar mass or adenopathy. The included thyroid is unremarkable. There is marked edema of the right breast and lateral chest wall. There is less striking but also present edema on the left. Prominent left breast axillary tail and axillary nodes are noted, less prominent nodes on the right are also noted. The included upper abdominal anatomy is unremarkable.. Impression: Cardiomegaly Large bilateral pleural effusions. Resultant compressive atelectasis of much of both lower lobes Extensive confluent and nodular consolidative opacities throughout the lungs bilaterally. Underlying hazy parenchymal opacity and interstitial congestion. Findings are most likely on the basis of pulmonary edema. Pneumonia also possible. Pericardial effusion Asymmetric chest wall edema, right greater than left Tracheostomy The CT scanner at [facility] is accredited by the [employer] and the scans are performed using protocols designed to limit radiation exposure to as low as reasonably achievable to attain images of sufficient resolution adequate for diagnostic evaluation.
--- NOTE | 2020-02-18 18:47 | Cardiology Progress Note ---
Subjective DATE OF SERVICE: Feb 18, 2020 On vent support Monitor: sinus tachycardia with improved heart rates; no recurring AFlutter today. Troponin in low range without significant progression Has moderate secretions from trach. Has decreasing diarrhea - CDiff toxin negative Venous Duplex negative for DVT CXR (02/14) still with bilateral infiltrates Sodium levels normalizing - patient on hypotonice IVF CT Chest today revealed asymm edema and bilateral effusions Objective Last 24 Hour Vital Signs Date Time Temp Pulse Resp B/P (MAP) Pulse Ox O2 Delivery O2 Flow Rate FiO2 02/18/20 17:19 103 16 30 02/18/20 16:00 107 02/18/20 16:00 Mechanical Ventilator 02/18/20 16:00 30 02/18/20 16:00 97.9 103 23 98/64 (75) 97 02/18/20 15:17 104 16 30 02/18/20 13:08 110 19 30 02/18/20 12:00 97.7 100 16 94/60 (71) 100 02/18/20 12:00 Mechanical Ventilator 02/18/20 12:00 100 94/60 02/18/20 12:00 30 02/18/20 12:00 106 02/18/20 10:58 105 18 100 Mechanical Ventilator 30 110 16 30 02/18/20 09:00 101 98/58 02/18/20 08:45 101 15 30 02/18/20 08:00 Mechanical Ventilator 02/18/20 08:00 30 02/18/20 08:00 104 02/18/20 07:53 98.2 107 16 98/58 (71) 100 02/18/20 07:27 110 19 30 02/18/20 05:56 111 114/60 02/18/20 04:00 98.2 111 16 114/60 (78) 100 02/18/20 04:00 Mechanical Ventilator 02/18/20 04:00 30 02/18/20 03:32 110 02/18/20 03:30 108 19 30 02/18/20 00:00 98 106/65 02/18/20 00:00 30 02/18/20 00:00 Mechanical Ventilator 02/18/20 00:00 98.1 98 16 106/65 (79) 100 02/17/20 23:28 101 02/17/20 23:18 103 18 100 Mechanical Ventilator 30 108 19 30 02/17/20 21:00 115 90/60 8/23/20 20:00 98.1 115 17 90/60 (70) 100 02/17/20 20:00 30 02/17/20 20:00 Mechanical Ventilator 02/17/20 19:30 111 17 30 02/17/20 19:15 112 ROS: unchanged from my note of 02/09/20 HEENT: Mechanically Ventilated, Thick Trach secretions RHYTHM: ST LUNGS: bilateral rhonchi CARDIAC: regular rhythm, normal S1 and S2, rapid rate, gallop/S4 ABDOMEN: normal bowel sounds, non tender, soft, no organomegaly, G-Tube intact EXTREMITIES: non-tender, no calf tenderness, No edema Laboratory Tests Test 02/18/20 03:38 02/18/20 16:40 White Blood Count 4.9 K/UL (4.8-10.8) Red Blood Count 2.76 M/UL (4.20-5.40) L Hemoglobin 8.1 G/DL (12.0-16.0) L Hematocrit 27.8 % (37.0-47.0) L Mean Corpuscular Volume 100 FL (80-99) H Mean Corpuscular Hemoglobin 29.2 PG (27.0-31.0) Mean Corpuscular Hemoglobin Concent 29.1 G/DL (32.0-36.0) L Red Cell Distribution Width 25.2 % (11.6-14.8) H Platelet Count 135 K/UL (150-450) L Mean Platelet Volume 6.8 FL (6.5-10.1) Neutrophils (%) (Auto) 60.7 % (45.0-75.0) Lymphocytes (%) (Auto) 20.5 % (20.0-45.0) Monocytes (%) (Auto) 8.1 % (1.0-10.0) Eosinophils (%) (Auto) 9.2 % (0.0-3.0) H Basophils (%) (Auto) 1.5 % (0.0-2.0) Sodium Level 146 MMOL/L (136-145) H Potassium Level 3.3 MMOL/L (3.5-5.1) L Chloride Level 108 MMOL/L (98-107) H Carbon Dioxide Level 22 MMOL/L (21-32) Anion Gap 16 mmol/L (5-15) H Blood Urea Nitrogen 10 mg/dL (7-18) Creatinine 0.5 MG/DL (0.55-1.30) L Estimat Glomerular Filtration Rate > 60 mL/min (>60) Glucose Level 124 MG/DL (74-106) H Calcium Level 7.4 MG/DL (8.5-10.1) L Magnesium Level 1.8 MG/DL (1.8-2.4) Total Bilirubin 0.3 MG/DL (0.2-1.0) Aspartate Amino Transf (AST/SGOT) 69 U/L (15-37) H Alanine Aminotransferase (ALT/SGPT) 32 U/L (12-78) Alkaline Phosphatase 329 U/L (46-116) H Total Protein 7.6 G/DL (6.4-8.2) Albumin 1.4 G/DL (3.4-5.0) L Globulin 6.2 g/dL Albumin/Globulin Ratio 0.2 (1.0-2.7) L Vancomycin Level Trough 24.8 ug/mL (5.0-12.0) H Assessment/Plan Assessment/Plan Severe sepsis Diarrhea with negative CDiff [employer] polymicrobial PNA Polymicrobial UTI Respiratory failure with trach Sinus tachycardia Paroxysmal atrial flutter Acute myocardial ischemia with elevated troponin levels and possible NSTEMI Moderate protein calorie malnutrition Acute on chronic respiratory acidosis Sinus node disease Dehydration/hypernatremia Hypokalemia Pleural effusions Ac/chronic diastolic CHF Vent support Replace fluid and electrolyte losses; free water replacement on-going. Diuresis Consider thorocentesis. Abx Titrate beta mingo; titrate diltiazem DVT prophylaxis Nutritional support by GTUbe Monitor acid-base parameters and adjust settings. Luis Felipe Sorto MD Feb 18, 2020 18:47
--- NOTE | 2020-02-18 19:30 | NUR ---
NURSE NOTES: received pt from Celia SOW., pt is awake and AO x2 at this time. Qatari speaker. pt's Gtube site intact, clean, and patent. rectal tube in place cristobal cath is draining well with gravity. left hand 22G intact, clean, and patent. call light within reach. bed at the lowest position, alarmed, and locked. will continue to monitor pt with plan of care.
[2020-02-18 20:00] VITALS: BP 97/51
--- NOTE | 2020-02-18 21:00 | General Progress Note ---
Assessment/Plan Assessment/Plan: Assessment - Diarrhea - improved off of Mylanta - ? component of TF diarrhea - Resp failure - s/p trach - dysphagia - s/p PEG Recommendations - continue TF - change to Vital AF - GT care - elevate HOB - monitor stool output Subjective Allergies: Coded Allergies: No Known Allergies (Unverified , 02/09/20) Subjective above noted no events overnight still with some diarrhea (+) rectal bag Objective Last 24 Hour Vital Signs Date Time Temp Pulse Resp B/P (MAP) Pulse Ox O2 Delivery O2 Flow Rate FiO2 02/18/20 20:40 108 96/50 02/18/20 20:00 Mechanical Ventilator 02/18/20 20:00 30 02/18/20 20:00 117 02/18/20 19:29 110 18 30 02/18/20 18:47 103 98/64 02/18/20 17:19 103 16 30 02/18/20 16:00 107 02/18/20 16:00 Mechanical Ventilator 02/18/20 16:00 30 02/18/20 16:00 97.9 103 23 98/64 (75) 97 02/18/20 15:17 104 16 30 02/18/20 13:08 110 19 30 02/18/20 12:00 97.7 100 16 94/60 (71) 100 02/18/20 12:00 Mechanical Ventilator 02/18/20 12:00 100 94/60 02/18/20 12:00 30 02/18/20 12:00 106 02/18/20 10:58 105 18 100 Mechanical Ventilator 30 110 16 30 02/18/20 09:00 101 98/58 02/18/20 08:45 101 15 30 02/18/20 08:00 Mechanical Ventilator 02/18/20 08:00 30 02/18/20 08:00 104 02/18/20 07:53 98.2 107 16 98/58 (71) 100 02/18/20 07:27 110 19 30 02/18/20 05:56 111 114/60 02/18/20 04:00 98.2 111 16 114/60 (78) 100 02/18/20 04:00 Mechanical Ventilator 02/18/20 04:00 30 02/18/20 03:32 110 02/18/20 03:30 108 19 30 02/18/20 00:00 98 106/65 02/18/20 00:00 30 02/18/20 00:00 Mechanical Ventilator 02/18/20 00:00 98.1 98 16 106/65 (79) 100 02/17/20 23:28 101 02/17/20 23:18 103 18 100 Mechanical Ventilator 30 108 19 30 02/17/20 21:00 115 90/60 Intake and Output 02/17/20 02/18/20 19:00 07:00 Intake Total 2716.667 ml 2882.666 ml Output Total 530 ml 400 ml Balance 2186.667 ml 2482.666 ml Intake Free Water 30 ml IV Total 2236.667 ml 2132.666 ml Tube Feeding 480 ml 720 ml Output Urine Total 450 ml 300 ml Stool Total 80 ml 100 ml Laboratory Tests 02/18/20 03:38: White Blood Count 4.9, Red Blood Count 2.76L, Hemoglobin 8.1L, Hematocrit 27.8L , Mean Corpuscular Volume 100H, Mean Corpuscular Hemoglobin 29.2, Mean Corpuscular Hemoglobin Concent 29.1L, Red Cell Distribution Width 25.2H, Platelet Count 135L, Mean Platelet Volume 6.8, Neutrophils (%) (Auto) 60.7, Lymphocytes (%) (Auto) 20.5, Monocytes (%) (Auto) 8.1, Eosinophils (%) (Auto) 9.2H, Basophils (%) (Auto) 1.5, Sodium Level 146H, Potassium Level 3.3L, Chloride Level 108H, Carbon Dioxide Level 22, Anion Gap 16H, Blood Urea Nitrogen 10, Creatinine 0.5L, Estimat Glomerular Filtration Rate > 60, Glucose Level 124H, Calcium Level 7.4L, Magnesium Level 1.8, Total Bilirubin 0.3, Aspartate Amino Transf (AST/SGOT) 69H, Alanine Aminotransferase (ALT/SGPT) 32, Alkaline Phosphatase 329H, Total Protein 7.6, Albumin 1.4L, Globulin 6.2, Albumin/Globulin Ratio 0.2L 02/18/20 16:40: Vancomycin Level Trough 24.8H Height (Feet): 5 Height (Inches): 3.00 Weight (Pounds): 155 Objective debilitated AA woman NCAT (++) viteligo supple, (+) trach CTA RRR abd soft ND NT, (+) GT no edema Khorrami,Payman MD Feb 18, 2020 21:00
[2020-02-18] MEDS: Vancomycin 500mg/D5W 110ml IVPB SCH ×2 (21:28)
[2020-02-19] VITALS: BP 93/60
--- NOTE | 2020-02-19 01:04 | NUR ---
NURSE NOTES: cleaned pt, oral care give, new gown and new blanket given. respositioned Q2hrs. no SOB noted.call light within reach. will continue to monitor pt with plan of care.
[2020-02-19 04:00] VITALS: BP 96/70
[2020-02-19] MEDS: dilTIAZem HCl 30mg tab ORAL SCH ×4 (05:02→23:57)
[2020-02-19] MEDS: Ampicillin/Sulbactam Sod 3 GM in NS 110 ML IVPB SCH ×4 (05:15→23:57)
--- NOTE | 2020-02-19 07:36 | NUR ---
NURSE HAND-OFF REPORT: Important Events on Shift: low BP SBP 90s Patient Status: stable , full code Diet: vital AF Pending Orders:none Pending Results/Labs:n/a Pending MD notification:none Latest Vital Signs: Temperature 97.0 , Pulse 102 , B/P 93 /63 , Respiratory Rate 15 , O2 SAT 100 , Mechanical Ventilator, O2 Flow Rate 15.0 . Vital Sign Comment: stable EKG Rhythm: Sinus Tachycardia Rhythm change?: N MD Notified?: - MD Response: Latest Hope Fall Score: 55 Fall Risk: High Risk Safety Measures: Call light Within Reach, Bed Alarm Zone 1, Side Rails Side Rails x3, Bed position Low and Locked. Fall Precautions: Yellow Socks Patient Fall Education Report given to Rahul SOW
--- NOTE | 2020-02-19 07:38 | NUR ---
NURSE NOTES: Patient received lying in bed, alert, awake, able to communicate needs. On trach to vent with settings: AC 14, TV-550, Fio2-30 PEEP 5, saturating at 100%, no acute distress. On g-tube feeding Vital AF at 60 ml/hr x 20hrs, no residual noted. HOB elevated for aspiration precaution. Right forearm IV , patent and intact running D5W at 60 ml/hr. Vann Catheter draining well to gravity, yellow colored urine noted. Sinus tachycardia on the monitor, rate of 100s. Bed kept in lowest position, call light within reach, bed alarm on. Skin remains intact. Will continue to monitor patient.
[2020-02-19 08:00] VITALS: BP 97/71
[2020-02-19] MEDS: Ascorbic Acid 500mg tab ORAL SCH ×2 (08:09→17:57)
[2020-02-19] MEDS: Metoprolol Tartrate 50mg tab GT SCH ×2 (08:11→20:29)
--- NOTE | 2020-02-19 08:30 | General Progress Note ---
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 3rd spacing PLAN gi follow up iv antibiotics ID noted trial of midodrine wound care tap effusion all consultants appreciated remains ill monitor heart rate/ still high/ d/w cards continue to monitor concern of snf discharge impression, plan, and exam edited and reviewed in detail care discussed with RN Subjective ROS Limited/Unobtainable: Yes Allergies: Coded Allergies: No Known Allergies (Unverified , 02/09/20) Subjective JAMES care reviewed still tachycardic and now hypotensive still with significant infiltrates ct chest with significant effusions Objective Last 24 Hour Vital Signs Date Time Temp Pulse Resp B/P (MAP) Pulse Ox O2 Delivery O2 Flow Rate FiO2 02/19/20 08:11 107 97/71 02/19/20 07:05 102 15 30 02/19/20 05:21 110 17 30 02/19/20 05:02 110 93/63 02/19/20 04:00 Mechanical Ventilator 02/19/20 04:00 30 02/19/20 04:00 97.0 103 18 96/70 (79) 100 02/19/20 03:35 108 02/19/20 03:06 109 15 30 02/19/20 01:22 111 17 30 02/19/20 00:00 Mechanical Ventilator 02/19/20 00:00 30 02/19/20 00:00 97.5 110 18 93/60 (71) 100 02/18/20 23:33 101 02/18/20 23:31 110 94/66 02/18/20 23:29 105 15 30 02/18/20 21:00 113 17 30 02/18/20 20:40 108 96/50 02/18/20 20:00 Mechanical Ventilator 02/18/20 20:00 30 02/18/20 20:00 97.9 108 23 97/51 (66) 97 02/18/20 20:00 117 02/18/20 19:29 110 18 30 02/18/20 18:47 103 98/64 02/18/20 17:19 103 16 30 02/18/20 16:00 107 02/18/20 16:00 Mechanical Ventilator 02/18/20 16:00 30 02/18/20 16:00 97.9 103 23 98/64 (75) 97 02/18/20 15:17 104 16 30 02/18/20 13:08 110 19 30 02/18/20 12:00 97.7 100 16 94/60 (71) 100 02/18/20 12:00 Mechanical Ventilator 02/18/20 12:00 100 94/60 02/18/20 12:00 30 02/18/20 12:00 106 02/18/20 10:58 105 18 100 Mechanical Ventilator 30 110 16 30 02/18/20 09:00 101 98/58 02/18/20 08:45 101 15 30 Intake and Output 02/18/20 02/19/20 19:00 07:00 Intake Total 720 ml 1991.25 ml Output Total 850 ml 1950 ml Balance -130 ml 41.25 ml Intake Free Water 100 ml IV Total 1171.25 ml Tube Feeding 720 ml 720 ml Output Urine Total 700 ml 1800 ml Stool Total 150 ml 150 ml # Voids 1 # Bowel Movements 1 Laboratory Tests 02/18/20 16:40: Vancomycin Level Trough 24.8H Height (Feet): 5 Height (Inches): 3.00 Weight (Pounds): 162 Objective WDWN NAD trach reduced breath sounds bilaterally without rhonchi or wheeze [id number] without MRG NABS nontender GT no CC noted edema nonfocal chronic rash Stevenson Medina MD Feb 19, 2020 08:30
[2020-02-19] MEDS: Vancomycin 500mg/D5W 110ml IVPB SCH ×4 (08:45→21:03)
--- NOTE | 2020-02-19 10:12 | Infectious Diseases Prog Note ---
"Assessment/Plan Assessment/Plan antibiotics : vancomycin iv, unasyn, inhaled colistin A 1. acenitobacter pneumonia COVID 19 negative 2. proteus | e.coli UTI s/p rx 3. MRSA sepsis 4. breast cancer 5. respiratory failure P 1. continue iv vancomycin 3 more days 2. continue unasyn 1 more day 3. will follow up cultures Subjective ROS Limited/Unobtainable: Yes Allergies: Coded Allergies: No Known Allergies (Unverified , 02/09/20) Objective Last 24 Hour Vital Signs Date Time Temp Pulse Resp B/P (MAP) Pulse Ox O2 Delivery O2 Flow Rate FiO2 02/19/20 08:29 111 02/19/20 08:11 107 97/71 02/19/20 08:00 30 02/19/20 08:00 98.1 107 17 97/71 (80) 100 02/19/20 07:05 102 15 30 02/19/20 05:21 110 17 30 02/19/20 05:02 110 93/63 02/19/20 04:00 Mechanical Ventilator 02/19/20 04:00 30 02/19/20 04:00 97.0 103 18 96/70 (79) 100 02/19/20 03:35 108 02/19/20 03:06 109 15 30 02/19/20 01:22 111 17 30 02/19/20 00:00 Mechanical Ventilator 02/19/20 00:00 30 02/19/20 00:00 97.5 110 18 93/60 (71) 100 02/18/20 23:33 101 02/18/20 23:31 110 94/66 02/18/20 23:29 105 15 30 02/18/20 21:00 113 17 30 02/18/20 20:40 108 96/50 02/18/20 20:00 Mechanical Ventilator 02/18/20 20:00 30 02/18/20 20:00 97.9 108 23 97/51 (66) 97 02/18/20 20:00 117 02/18/20 19:29 110 18 30 02/18/20 18:47 103 98/64 02/18/20 17:19 103 16 30 02/18/20 16:00 107 02/18/20 16:00 Mechanical Ventilator 02/18/20 16:00 30 02/18/20 16:00 97.9 103 23 98/64 (75) 97 02/18/20 15:17 104 16 30 02/18/20 13:08 110 19 30 02/18/20 12:00 97.7 100 16 94/60 (71) 100 02/18/20 12:00 Mechanical Ventilator 02/18/20 12:00 100 94/60 02/18/20 12:00 30 02/18/20 12:00 106 02/18/20 10:58 105 18 100 Mechanical Ventilator 30 110 16 30 Height (Feet): 5 Height (Inches): 3.00 Weight (Pounds): 162 HEENT: status post trach Respiratory/Chest: lungs clear Cardiovascular: normal rate, regular rhythm, no gallop/murmur Abdomen: soft, non tender, other - GT Extremities: no edema Laboratory Tests Test 02/18/20 16:40 Vancomycin Level Trough 24.8 ug/mL (5.0-12.0) H Current Medications Medications (Trade) Dose Ordered Sig/Lucy Route PRN Reason Start Time Stop Time Status Last Admin Dose Admin Acetaminophen (Tylenol) 650 mg Q4H PRN GT Mild Pain (Pain Scale 1-3) 02/09/20 10:30 03/10/20 10:29 02/13/20 21:00 Ampicillin Sodium/ Sulbactam Sodium 3 gm/Sodium Chloride 110 ml @ 220 mls/hr Q6HR IVPB 02/14/20 12:00 02/21/20 11:59 02/19/20 05:15 Ascorbic Acid (Vitamin C) 250 mg TWICE A DAY ORAL 02/11/20 18:00 03/12/20 17:59 02/19/20 08:09 Clonidine HCl (Catapres Tab) 0.1 mg Q4H PRN GT For High Blood Pressure 02/09/20 13:45 05/09/20 13:44 Dextrose 1,000 ml @ 75 mls/hr [id number] IV 02/18/20 18:45 03/19/20 18:44 02/19/20 08:09 Diltiazem HCl (Cardizem Tab) 30 mg EVERY 6 HOURS ORAL 02/16/20 00:00 03/17/20 00:00 02/18/20 18:47 Diphenhydramine HCl (Benadryl) 25 mg Q6H PRN GT ITCHING 02/09/20 10:30 03/10/20 10:29 02/16/20 08:18 Diphenoxylate HCl/ Atropine (Lomotil) 2.5 mg Q6H PRN GT Diarrhea 02/13/20 11:00 03/14/20 10:59 Lansoprazole (Prevacid) 30 mg DAILY GT 02/10/20 09:00 03/11/20 08:59 02/19/20 08:10 Levothyroxine Sodium (Synthroid) 75 mcg DAILY GT 02/12/20 09:00 03/11/20 08:59 02/19/20 08:10 Metoprolol Tartrate (Lopressor) 50 mg EVERY 12 HOURS GT 02/14/20 09:00 05/14/20 08:59 02/19/20 08:11 Midodrine (Pro-Amatine) 2.5 mg THREE TIMES A DAY ORAL 02/19/20 09:00 05/19/20 08:59 02/19/20 09:42 Vancomycin HCl (Vanco pharmacy to dose) 1 ea DAILY PRN MISC Per rx protocol 02/09/20 10:30 03/10/20 10:29 Vancomycin HCl 500 mg/Dextrose 110 ml @ 110 mls/hr Q12HR IVPB 02/18/20 21:00 02/23/20 20:59 02/19/20 08:45 Hong Camacho MD Feb 19, 2020 10:12"
[2020-02-19 12:00] VITALS: BP 110/73
--- NOTE | 2020-02-19 12:00 | NUR ---
NURSE NOTES: Patient remains stable at this time, No respiratory distress. Tolerating g-tube feeding. Will continue to monitor.
--- NOTE | 2020-02-19 12:48 | NUR ---
CASE MANAGEMENT: REVIEW 02/19/20 SI:BILATERAL PLEURAL EFFUSION . RESP FAILURE . E-COLI UTI . BLOOD CX + STAPH AUREUS/STAPH CANITIS VRE+ . MRSA+ NARES 98.1 107 17 97/71 100% MECH VENT FIO2 30 NO LABS TODAY IS: IN SURG NOW FOR US GUIDED THORACENTESIS IV D5@75ML/HR IV AMPICILLIN Q6HR IV VANCOMYCIN BID LOPRESSOR GT BID CARDIZEM PO Q6HR PRO-AMATINE PO TID SYNTHROID GT QD STEP DOWN UNIT STATUS DCP: PATIENT IS FROM [place] PLAN: CONTROL HR CONTROL BP
--- NOTE | 2020-02-19 12:54 | NUR ---
*-* INSURANCE *-* UPDATED CLINICALS AND REVIEWS HAVE BEEN FAXED TO: ROMAN ALVAREZ P: [phone] F: [phone] AUTH# [id number]
--- NOTE | 2020-02-19 13:51 | Surgery Progress Note ---
Surgery Progress Note Subjective Additional Comments no acute events labs noted exam stable dressings going well Objective Last 24 Hour Vital Signs Date Time Temp Pulse Resp B/P (MAP) Pulse Ox O2 Delivery O2 Flow Rate FiO2 02/19/20 12:17 87 110/73 02/19/20 12:00 Mechanical Ventilator 02/19/20 12:00 30 02/19/20 12:00 97.3 104 15 110/73 (85) 100 02/19/20 10:57 105 18 30 02/19/20 08:29 111 02/19/20 08:11 107 97/71 02/19/20 08:00 Mechanical Ventilator 02/19/20 08:00 30 02/19/20 08:00 98.1 107 17 97/71 (80) 100 02/19/20 07:05 102 15 30 02/19/20 05:21 110 17 30 02/19/20 05:02 110 93/63 02/19/20 04:00 Mechanical Ventilator 02/19/20 04:00 30 02/19/20 04:00 97.0 103 18 96/70 (79) 100 02/19/20 03:35 108 02/19/20 03:06 109 15 30 02/19/20 01:22 111 17 30 02/19/20 00:00 Mechanical Ventilator 02/19/20 00:00 30 02/19/20 00:00 97.5 110 18 93/60 (71) 100 02/18/20 23:33 101 02/18/20 23:31 110 94/66 02/18/20 23:29 105 15 30 02/18/20 21:00 113 17 30 02/18/20 20:40 108 96/50 02/18/20 20:00 Mechanical Ventilator 02/18/20 20:00 30 02/18/20 20:00 97.9 108 23 97/51 (66) 97 02/18/20 20:00 117 02/18/20 19:29 110 18 30 02/18/20 18:47 103 98/64 02/18/20 17:19 103 16 30 02/18/20 16:00 107 02/18/20 16:00 Mechanical Ventilator 02/18/20 16:00 30 02/18/20 16:00 97.9 103 23 98/64 (75) 97 02/18/20 15:17 104 16 30 I&O Intake and Output 02/18/20 02/19/20 19:00 07:00 Intake Total 720 ml 1991.25 ml Output Total 850 ml 1950 ml Balance -130 ml 41.25 ml Intake Free Water 100 ml IV Total 1171.25 ml Tube Feeding 720 ml 720 ml Output Urine Total 700 ml 1800 ml Stool Total 150 ml 150 ml # Voids 1 # Bowel Movements 1 Dressing: saturated Cardiovascular: RSR Respiratory: decreased breath sounds Abdomen: soft, non-tender, present bowel sounds Extremities: no tenderness, no cyanosis Laboratory Tests Test 02/18/20 16:40 Vancomycin Level Trough 24.8 ug/mL (5.0-12.0) H Plan Problems: (1) Sepsis Assessment & Plan: Leukocytosis, anemia, lactic acidosis sepsis uro uti likely wounds noted and stable unlikely etiology nutritional optimization tf as tolerated vent support cxr noted d/cp marry improved placement DAILY ESTIMATED NEEDS: Needs based on Wound, critical care 52.3kg abw 25-30 kcals/kg 9967-4026 total kcals 1.25-2 g protein/kg 65-105 g total protein 25-30 mL/kg 1637-0199 total fluid mLs NUTRITION DIAGNOSIS: Increased kcal and pro needs r/t wound healing as evidenced by pt w/multiple full thickness wounds, refer to wound care eval, pt is bedbound trach and peg dep. CURRENT TF: Glucerna 1.2 @60ml/hr x20 hrs ENTERAL NUTRITION RECOMMENDATIONS: Maintain Glucerna 1.2 w/ goal of 60ml/hr x20 hrs to provide 1200ml, 1440 kcal, 72g pro, 966ml free H2O - Maintain current TF rate to meet 100% est needs - Rec added PROSOURCE 1 pack daily (11g pro) to better meet est pro needs - Flush per HOB over 30 degrees ADDITIONAL RECOMMENDATIONS: 1) Wound care: add GT BID + Vit C 250mg BID 2) Per SNF: 61 inches (5'1") and last wt 145 lbs/65.91kg Maintain calibrated bed scale wts w/ added P200 mattress 3) Rec NISS + accuchecks for improved BG (2) UTI (urinary tract infection) (3) Pneumonia (4) Decubitus skin ulcer Assessment & Plan: Pt presented on admission with Pressure Injuries, Tracheostomy,Alopecia, Generalized Hypopigmented Skin plaques. Few plaques noted to be open lesions but are pink and dry. Skin assessed under collar of trach and no areas of skin breakdown noted. Full thickness Pressure injury noted to R Buttocks(L)5.7cm x (W)1.7cm x (D) 0.3cm. Base of wound is 90% beefy-red,10% slough. Borders are macerated . surrounding dry skin with hypopigmented plaques. Full thickness Pressure injury L Buttocks(L)4.6cm x (W)4.5cm. Base of wound has clusters wounds with intertwining bridges. Wounds have mixed slough and jack appearances. Small amt serous exudate noted. Surrounding dry hypopigmented skin plaques. Proximally and in close proximity skin is denuded. Small pustule with surrounding erythema noted L Hallux(L)0.5cm x (W)0.6cm. NO changes in skin temp periwound. An area of hyperpigmentation from previous wound noted to medial/posterior R Heel. L Heel is otherwise boggy with non-blanching erythema. Reabsorbed DTPI L Heel(L)2.2cm x (W)2cm. Dry brown eschar at base of wound. NO erythema or fluctuance periwound. Unstageable Pressure injury L lateral Malleolus(L)0.7cm x (W)0.9cm. Base of wound has 100% slough.edges dry and adherent to base of wound. No erythema, induration,or fluctuance periwound. Tx.Plan: Cleanse wounds R and L Buttocks with Saline. Apply Therahoney to wounds. Apply Moisture Barrier Paste Periwound. Cover with Optifoam drsg Daily and prn. Apply Betadine to wound R Hallux. Cover with Optifoam drsg every 3 days and prn. Apply Betadine to L lateral Malleolus. Cover with Optifoam drsg. Change every 3 days and prn. Apply Cavilon Skin Barrier to both heels. Cover each heel with Optifoam drsg. Change every 7 days and prn. Reposition at least every 2hours or as tolerated. Off-load heels with pillow. APM/ELIDIA Mattress overlay. Zia Chung Feb 19, 2020 13:51
[2020-02-19 16:00] VITALS: BP 96/69
[2020-02-19] MEDS ORDERED: NS 275ml ONE (16:15)
[2020-02-19] MEDS ORDERED: Tubing IV Secondary IV ONE (16:15)
--- NOTE | 2020-02-19 19:00 | NUR ---
NURSE NOTES: Pt report received from TOOTIE SOW. pt remains stable. pt is alert and oriented times 2, able to respond yes or no to simple questions, no acute neuro abnormalities noted. pt is Trach vented, sating 98% O2, no acute signs symptoms of resp distress noted. pt is on rn cardiac showing NSR, no acute signs/ symptoms of acute cardiac distress noted. pt bed is low, locked, armed, call light within easy reach, bed rails up times 3, will follow plan of care.
--- NOTE | 2020-02-19 19:12 | NUR ---
NURSE HAND-OFF REPORT: Important Events on Shift: tolerating restraint removal Patient Status: stable Diet: on tube feeding Pending Orders: US Asp Thoracentesis Pending Results/Labs: Pending MD notification: Latest Vital Signs: Temperature 97.3 , Pulse 95 , B/P 96 /69 , Respiratory Rate 16 , O2 SAT 100 , Mechanical Ventilator, O2 Flow Rate 15.0 . Vital Sign Comment: none EKG Rhythm: Sinus Rhythm Rhythm change?: N MD Notified?: - n/a MD Response: Message left await call Latest Hope Fall Score: 35 Fall Risk: Medium Risk Safety Measures: Call light Within Reach, Bed Alarm Zone 1, Side Rails Side Rails x3, Bed position Low and Locked. Fall Precautions: Yellow Socks Patient Fall Education Report given to MAGI Martin.
[2020-02-19 20:00] VITALS: BP 91/56
--- NOTE | 2020-02-19 20:49 | NUR ---
NURSE NOTES: Dagmar Pharmacist called, stated to continue same ordered Vanco IV med.
--- NOTE | 2020-02-19 21:23 | General Progress Note ---
Assessment/Plan Assessment/Plan: Assessment - Diarrhea - improved off of Mylanta - ? component of TF or antibiotic diarrhea - Resp failure - s/p trach - dysphagia - s/p PEG Recommendations - continue Vital AF - GT care - elevate HOB - monitor stool output Subjective Allergies: Coded Allergies: No Known Allergies (Unverified , 02/09/20) Subjective above noted no events overnight still with some diarrhea (+) rectal bag Objective Last 24 Hour Vital Signs Date Time Temp Pulse Resp B/P (MAP) Pulse Ox O2 Delivery O2 Flow Rate FiO2 02/19/20 20:29 96 91/56 02/19/20 20:00 94 02/19/20 20:00 97.7 102 17 91/56 (68) 100 02/19/20 20:00 Mechanical Ventilator 02/19/20 20:00 30 02/19/20 19:15 95 17 30 02/19/20 17:57 95 96/69 02/19/20 16:48 95 02/19/20 16:00 30 02/19/20 16:00 Mechanical Ventilator 02/19/20 16:00 97.3 106 16 96/69 (78) 100 02/19/20 15:17 102 20 30 02/19/20 15:16 102 20 100 Mechanical Ventilator 30 02/19/20 12:17 87 110/73 02/19/20 12:00 Mechanical Ventilator 02/19/20 12:00 106 02/19/20 12:00 30 02/19/20 12:00 97.3 104 15 110/73 (85) 100 02/19/20 10:57 105 18 30 02/19/20 08:29 111 02/19/20 08:11 107 97/71 02/19/20 08:00 Mechanical Ventilator 02/19/20 08:00 30 02/19/20 08:00 98.1 107 17 97/71 (80) 100 02/19/20 07:05 102 15 30 02/19/20 05:21 110 17 30 02/19/20 05:02 110 93/63 02/19/20 04:00 Mechanical Ventilator 02/19/20 04:00 30 02/19/20 04:00 97.0 103 18 96/70 (79) 100 02/19/20 03:35 108 02/19/20 03:06 109 15 30 8/25/20 01:22 111 17 30 02/19/20 00:00 Mechanical Ventilator 02/19/20 00:00 30 02/19/20 00:00 97.5 110 18 93/60 (71) 100 02/18/20 23:33 101 02/18/20 23:31 110 94/66 02/18/20 23:29 105 15 30 Intake and Output 02/18/20 02/19/20 19:00 07:00 Intake Total 720 ml 1991.25 ml Output Total 850 ml 1950 ml Balance -130 ml 41.25 ml Intake Free Water 100 ml IV Total 1171.25 ml Tube Feeding 720 ml 720 ml Output Urine Total 700 ml 1800 ml Stool Total 150 ml 150 ml # Voids 1 # Bowel Movements 1 Laboratory Tests 02/19/20 20:10: Vancomycin Level Trough 19.9H Height (Feet): 5 Height (Inches): 3.00 Weight (Pounds): 162 Objective debilitated AA woman NCAT (++) viteligo supple, (+) trach CTA RRR abd soft ND NT, (+) GT no edema Priti Sequeira MD Feb 19, 2020 21:23
[2020-02-20] VITALS: BP 90/59
--- NOTE | 2020-02-20 01:00 | NUR ---
NURSE NOTES: pt turned, repositioned and cleaned.
--- NOTE | 2020-02-20 01:55 | Cardiology Progress Note ---
Subjective DATE OF SERVICE: Feb 19, 2020 On vent support with low BP range. Monitor: sinus tachycardia with improved heart rates; no recurring AFlutter today. Troponin in low range without significant progression Has moderate secretions from trach. Has decreasing diarrhea - CDiff toxin negative Venous Duplex negative for DVT CXR (02/14) still with bilateral infiltrates Sodium levels normalizing - patient on hypotonic IVF CT Chest yesterday revealed asymm edema and bilateral effusions Objective Last 24 Hour Vital Signs Date Time Temp Pulse Resp B/P (MAP) Pulse Ox O2 Delivery O2 Flow Rate FiO2 02/20/20 00:00 30 02/20/20 00:00 Mechanical Ventilator 02/20/20 00:00 97.9 93 16 90/59 (69) 100 02/19/20 23:57 90 84/58 02/19/20 23:28 89 02/19/20 22:34 95 18 30 02/19/20 21:05 97 17 30 02/19/20 20:29 96 91/56 02/19/20 20:00 94 02/19/20 20:00 97.7 102 17 91/56 (68) 100 02/19/20 20:00 Mechanical Ventilator 02/19/20 20:00 30 02/19/20 19:15 95 17 30 02/19/20 17:57 95 96/69 02/19/20 16:48 95 02/19/20 16:00 30 02/19/20 16:00 Mechanical Ventilator 02/19/20 16:00 97.3 106 16 96/69 (78) 100 02/19/20 15:17 102 20 30 02/19/20 15:16 102 20 100 Mechanical Ventilator 30 02/19/20 12:17 87 110/73 02/19/20 12:00 Mechanical Ventilator 02/19/20 12:00 106 02/19/20 12:00 30 02/19/20 12:00 97.3 104 15 110/73 (85) 100 02/19/20 10:57 105 18 30 02/19/20 08:29 111 02/19/20 08:11 107 97/71 02/19/20 08:00 Mechanical Ventilator 02/19/20 08:00 30 02/19/20 08:00 98.1 107 17 97/71 (80) 100 02/19/20 07:05 102 15 30 02/19/20 05:21 110 17 30 02/19/20 05:02 110 93/63 02/19/20 04:00 Mechanical Ventilator 02/19/20 04:00 30 02/19/20 04:00 97.0 103 18 96/70 (79) 100 02/19/20 03:35 108 02/19/20 03:06 109 15 30 ROS: unchanged from my note of 02/09/20 HEENT: Mechanically Ventilated, Thick Trach secretions RHYTHM: ST LUNGS: bilateral rhonchi CARDIAC: regular rhythm, normal S1 and S2, rapid rate, gallop/S4 ABDOMEN: normal bowel sounds, non tender, soft, no organomegaly, G-Tube intact EXTREMITIES: non-tender, no calf tenderness, No edema Laboratory Tests Test 02/19/20 20:10 Vancomycin Level Trough 19.9 ug/mL (5.0-12.0) H Assessment/Plan Assessment/Plan Severe sepsis Diarrhea with negative [facility] polymicrobial PNA Polymicrobial UTI Respiratory failure with trach Sinus tachycardia Paroxysmal atrial flutter Acute myocardial ischemia with elevated troponin levels and possible NSTEMI Moderate protein calorie malnutrition Acute on chronic respiratory acidosis Sinus node disease Dehydration/hypernatremia Hypokalemia Pleural effusions Ac/chronic diastolic CHF Vent support Replace fluid and electrolyte losses; free water replacement as needed. Diuresis on hold Thorocentesis planned. Abx Titrate beta mingo; titrate diltiazem DVT prophylaxis Nutritional support by GTUbe Monitor acid-base parameters and adjust settings. Luis Felipe Sorto MD Feb 20, 2020 01:55
--- NOTE | 2020-02-20 03:30 | NUR ---
NURSE NOTES: Pts IV tubings replaced. pt turned and repositioned.
[2020-02-20 04:00] VITALS: BP 116/65
[2020-02-20] MEDS: Ampicillin/Sulbactam Sod 3 GM in NS 110 ML IVPB SCH (05:46)
[2020-02-20] MEDS: dilTIAZem HCl 30mg tab ORAL SCH ×3 (05:46→21:40)
--- NOTE | 2020-02-20 07:05 | NUR ---
NURSE NOTES: Received pt from Gerson Beth RN. Pt is seen lying in bed in semi-ashford's position. Pt is asleep. No any signs of respiratory distress noted. Attached to mech vent. Bed in lowest position. Call light within reach. No signs of restlessness noted. Continue to plan of care.
--- NOTE | 2020-02-20 07:20 | NUR ---
NURSE HAND-OFF REPORT: Important Events on Shift:[NA] Patient Status: [STABLE] Diet: [ DOCTOR ORDERED] Pending Orders: [DEPENDING ON LABS] Pending Results/Labs:[PENDING] Pending MD notification:[DEPENDING ON LABS] Latest Vital Signs: Temperature 98.1 , Pulse 112 , B/P 105 /72 , Respiratory Rate 17 , O2 SAT 100 , Mechanical Ventilator, O2 Flow Rate 15.0 . Vital Sign Comment: [STABLE] EKG Rhythm: Sinus Rhythm Rhythm change?: N MD Notified?: - MD Response: Message left await call Latest Hope Fall Score: 35 Fall Risk: Medium Risk Safety Measures: Call light Within Reach, Bed Alarm Zone 1, Side Rails Side Rails x3, Bed position Low and Locked. Fall Precautions: Yellow Socks Patient Fall Education Report given to [MAGALIS SOW].
[2020-02-20 07:46] LABS: BASOPHILS % (AUTO) 0.8 % (0.0-2.0); EOSINOPHILS % (AUTO) 9.3 % (0.0-3.0); HEMATOCRIT 26.6 % (37.0-47.0); MEAN CORPUSCULAR VOLUME 97 FL (80-99); MONOCYTES % (AUTO) 9.8 % (1.0-10.0); NEUTROPHILS % (AUTO) 68.1 % (45.0-75.0); PLATELET COUNT 145 K/UL (150-450); RED BLOOD COUNT 2.74 M/UL (4.20-5.40); RED CELL DISTRIBUTION WIDTH 23.8 % (11.6-14.8)
[2020-02-20 07:54] LABS: ANION GAP 7 mmol/L (5-15); BLOOD UREA NITROGEN 7 mg/dL (7-18); CALCIUM 7.5 MG/DL (8.5-10.1); CARBON DIOXIDE 26 MMOL/L (21-32); CHLORIDE 107 MMOL/L (98-107); CREATININE 0.6 MG/DL (0.55-1.30); POTASSIUM 2.8 MMOL/L (3.5-5.1); SODIUM 140 MMOL/L (136-145)
[2020-02-20 08:00] VITALS: BP 131/57
[2020-02-20 08:12] LABS: INR 1.1 (0.9-1.1)
[2020-02-20] MEDS: Metoprolol Tartrate 50mg tab GT SCH ×2 (09:01→21:00)
[2020-02-20] MEDS: Ascorbic Acid 500mg tab ORAL SCH ×2 (09:01→17:51)
[2020-02-20] MEDS: Vancomycin 500mg/D5W 110ml IVPB SCH ×4 (09:06→21:40)
--- NOTE | 2020-02-20 09:30 | General Progress Note ---
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 3rd spacing PLAN gi follow up iv antibiotics ID noted trial of midodrine wound care tap effusion ordered all consultants appreciated remains ill monitor heart rate/ still high/ d/w cards continue to monitor concern of snf discharge impression, plan, and exam edited and reviewed in detail care discussed with RN Subjective ROS Limited/Unobtainable: Yes Allergies: Coded Allergies: No Known Allergies (Unverified , 02/09/20) Subjective JAMES care reviewed still tachycardic still with significant infiltrates ct chest with significant effusions Objective Last 24 Hour Vital Signs Date Time Temp Pulse Resp B/P (MAP) Pulse Ox O2 Delivery O2 Flow Rate FiO2 02/20/20 09:01 105 131/57 02/20/20 08:00 96.8 105 14 131/57 (81) 100 02/20/20 08:00 30 02/20/20 08:00 Mechanical Ventilator 02/20/20 07:15 107 16 30 02/20/20 05:46 112 105/72 02/20/20 05:30 103 17 30 02/20/20 04:00 Mechanical Ventilator 02/20/20 04:00 30 02/20/20 04:00 98.1 94 16 116/65 (82) 100 02/20/20 03:52 130 02/20/20 02:35 92 16 30 02/20/20 01:00 91 15 30 02/20/20 00:00 30 02/20/20 00:00 Mechanical Ventilator 02/20/20 00:00 97.9 93 16 90/59 (69) 100 02/19/20 23:57 90 84/58 02/19/20 23:28 89 02/19/20 22:34 95 18 30 02/19/20 21:05 97 17 30 02/19/20 20:29 96 91/56 02/19/20 20:00 94 02/19/20 20:00 97.7 102 17 91/56 (68) 100 02/19/20 20:00 Mechanical Ventilator 02/19/20 20:00 30 02/19/20 19:15 95 17 30 02/19/20 17:57 95 96/69 02/19/20 16:48 95 02/19/20 16:00 30 02/19/20 16:00 Mechanical Ventilator 02/19/20 16:00 97.3 106 16 96/69 (78) 100 02/19/20 15:17 102 20 30 02/19/20 15:16 102 20 100 Mechanical Ventilator 30 02/19/20 12:17 87 110/73 02/19/20 12:00 Mechanical Ventilator 02/19/20 12:00 106 02/19/20 12:00 30 02/19/20 12:00 97.3 104 15 110/73 (85) 100 02/19/20 10:57 105 18 30 Intake and Output 02/19/20 02/20/20 19:00 07:00 Intake Total 915 ml 1815 ml Output Total 50 ml 900 ml Balance 865 ml 915 ml Intake Free Water 120 ml IV Total 75 ml 1155 ml Tube Feeding 720 ml 660 ml Output Urine Total 700 ml Stool Total 50 ml 200 ml # Bowel Movements 3 3 Laboratory Tests 02/19/20 20:10: Vancomycin Level Trough 19.9H 02/20/20 07:27: White Blood Count 5.0, Red Blood Count 2.74L, Hemoglobin 8.0L, Hematocrit 26.6L , Mean Corpuscular Volume 97, Mean Corpuscular Hemoglobin 29.4, Mean Corpuscular Hemoglobin Concent 30.2L, Red Cell Distribution Width 23.8H, Platelet Count 145L, Mean Platelet Volume 7.6, Neutrophils (%) (Auto) 68.1, Lymphocytes (%) (Auto) 12.0L, Monocytes (%) (Auto) 9.8, Eosinophils (%) (Auto) 9.3H, Basophils (%) (Auto) 0.8, Prothrombin Time 12.0H, Prothromb Time International Ratio 1.1, Sodium Level 140, Potassium Level 2.8L, Chloride Level 107, Carbon Dioxide Level 26, Anion Gap 7, Blood Urea Nitrogen 7, Creatinine 0.6 , Estimat Glomerular Filtration Rate > 60, Glucose Level 134H, Calcium Level 7.5L, Magnesium Level 1.5L, Pro-B-Type Natriuretic Peptide 7080H Height (Feet): 5 Height (Inches): 3.00 Weight (Pounds): 159 Objective WDWN NAD trach reduced breath sounds bilaterally without rhonchi or wheeze [id number] without MRG NABS nontender GT no CC noted edema nonfocal chronic rash Stevenson Medina MD Feb 20, 2020 09:30
--- NOTE | 2020-02-20 09:54 | NUR ---
NURSE NOTES: left a message to dr sihn regarding K level of 2.8 today. awaiting callback and new order.
--- NOTE | 2020-02-20 10:51 | Infectious Diseases Prog Note ---
"Assessment/Plan Assessment/Plan antibiotics : vancomycin iv, unasyn A 1. acenitobacter pneumonia s/p rx COVID 19 negative 2. proteus | e.coli UTI s/p rx 3. MRSA sepsis 4. breast cancer 5. respiratory failure P 1. continue iv vancomycin 2 more days 2. d/c unasyn 3. will follow up cultures Subjective ROS Limited/Unobtainable: Yes Allergies: Coded Allergies: No Known Allergies (Unverified , 02/09/20) Objective Last 24 Hour Vital Signs Date Time Temp Pulse Resp B/P (MAP) Pulse Ox O2 Delivery O2 Flow Rate FiO2 02/20/20 10:35 114 02/20/20 09:20 110 20 30 02/20/20 09:01 105 131/57 02/20/20 08:00 96.8 105 14 131/57 (81) 100 02/20/20 08:00 30 02/20/20 08:00 Mechanical Ventilator 02/20/20 07:15 107 16 30 02/20/20 05:46 112 105/72 02/20/20 05:30 103 17 30 02/20/20 04:00 Mechanical Ventilator 02/20/20 04:00 30 02/20/20 04:00 98.1 94 16 116/65 (82) 100 02/20/20 03:52 130 02/20/20 02:35 92 16 30 02/20/20 01:00 91 15 30 02/20/20 00:00 30 02/20/20 00:00 Mechanical Ventilator 02/20/20 00:00 97.9 93 16 90/59 (69) 100 02/19/20 23:57 90 84/58 02/19/20 23:28 89 02/19/20 22:34 95 18 30 02/19/20 21:05 97 17 30 02/19/20 20:29 96 91/56 02/19/20 20:00 94 02/19/20 20:00 97.7 102 17 91/56 (68) 100 02/19/20 20:00 Mechanical Ventilator 02/19/20 20:00 30 02/19/20 19:15 95 17 30 02/19/20 17:57 95 96/69 02/19/20 16:48 95 02/19/20 16:00 30 02/19/20 16:00 Mechanical Ventilator 02/19/20 16:00 97.3 106 16 96/69 (78) 100 02/19/20 15:17 102 20 30 02/19/20 15:16 102 20 100 Mechanical Ventilator 30 02/19/20 12:17 87 110/73 02/19/20 12:00 Mechanical Ventilator 02/19/20 12:00 106 02/19/20 12:00 30 02/19/20 12:00 97.3 104 15 110/73 (85) 100 02/19/20 10:57 105 18 30 Height (Feet): 5 Height (Inches): 3.00 Weight (Pounds): 159 HEENT: status post trach Respiratory/Chest: lungs clear Cardiovascular: normal rate, regular rhythm, no gallop/murmur Abdomen: soft, non tender, other - GT Extremities: no edema Laboratory Tests Test 02/19/20 20:10 02/20/20 07:27 Vancomycin Level Trough 19.9 ug/mL (5.0-12.0) H White Blood Count 5.0 K/UL (4.8-10.8) Red Blood Count 2.74 M/UL (4.20-5.40) L Hemoglobin 8.0 G/DL (12.0-16.0) L Hematocrit 26.6 % (37.0-47.0) L Mean Corpuscular Volume 97 FL (80-99) Mean Corpuscular Hemoglobin 29.4 PG (27.0-31.0) Mean Corpuscular Hemoglobin Concent 30.2 G/DL (32.0-36.0) L Red Cell Distribution Width 23.8 % (11.6-14.8) H Platelet Count 145 K/UL (150-450) L Mean Platelet Volume 7.6 FL (6.5-10.1) Neutrophils (%) (Auto) 68.1 % (45.0-75.0) Lymphocytes (%) (Auto) 12.0 % (20.0-45.0) L Monocytes (%) (Auto) 9.8 % (1.0-10.0) Eosinophils (%) (Auto) 9.3 % (0.0-3.0) H Basophils (%) (Auto) 0.8 % (0.0-2.0) Prothrombin Time 12.0 SEC (9.30-11.50) H Prothromb Time International Ratio 1.1 (0.9-1.1) Sodium Level 140 MMOL/L (136-145) Potassium Level 2.8 MMOL/L (3.5-5.1) L Chloride Level 107 MMOL/L (98-107) Carbon Dioxide Level 26 MMOL/L (21-32) Anion Gap 7 mmol/L (5-15) Blood Urea Nitrogen 7 mg/dL (7-18) Creatinine 0.6 MG/DL (0.55-1.30) Estimat Glomerular Filtration Rate > 60 mL/min (>60) Glucose Level 134 MG/DL (74-106) H Calcium Level 7.5 MG/DL (8.5-10.1) L Magnesium Level 1.5 MG/DL (1.8-2.4) L Pro-B-Type Natriuretic Peptide 7080 pg/mL (0-125) H Current Medications Medications (Trade) Dose Ordered Sig/Lucy Route PRN Reason Start Time Stop Time Status Last Admin Dose Admin Acetaminophen (Tylenol) 650 mg Q4H PRN GT Mild Pain (Pain Scale 1-3) 02/09/20 10:30 03/10/20 10:29 02/13/20 21:00 Ampicillin Sodium/ Sulbactam Sodium 3 gm/Sodium Chloride 110 ml @ 220 mls/hr Q6HR IVPB 02/14/20 12:00 02/21/20 11:59 02/20/20 05:46 Ascorbic Acid (Vitamin C) 250 mg TWICE A DAY ORAL 02/11/20 18:00 03/12/20 17:59 02/20/20 09:01 Clonidine HCl (Catapres Tab) 0.1 mg Q4H PRN GT For High Blood Pressure 02/09/20 13:45 05/09/20 13:44 Dextrose 1,000 ml @ 75 mls/hr [id number] IV 02/18/20 18:45 03/19/20 18:44 02/19/20 20:31 Diltiazem HCl (Cardizem Tab) 30 mg EVERY 8 HOURS ORAL 02/20/20 06:00 03/21/20 05:59 02/20/20 05:46 Diphenhydramine HCl (Benadryl) 25 mg Q6H PRN GT ITCHING 02/09/20 10:30 03/10/20 10:29 02/16/20 08:18 Diphenoxylate HCl/ Atropine (Lomotil) 2.5 mg Q6H PRN GT Diarrhea 02/13/20 11:00 03/14/20 10:59 Lansoprazole (Prevacid) 30 mg DAILY GT 02/10/20 09:00 03/11/20 08:59 02/20/20 09:01 Levothyroxine Sodium (Synthroid) 75 mcg DAILY GT 02/12/20 09:00 03/11/20 08:59 02/20/20 09:00 Magnesium Sulfate 100 ml @ 100 mls/hr Q1H IVPB 02/20/20 10:30 02/20/20 12:29 02/20/20 10:48 Metoprolol Tartrate (Lopressor) 50 mg EVERY 12 HOURS GT 02/14/20 09:00 05/14/20 08:59 02/20/20 09:01 Midodrine (Pro-Amatine) 2.5 mg THREE TIMES A DAY ORAL 02/19/20 09:00 05/19/20 08:59 02/20/20 09:01 Potassium Chloride (K-Dur) 40 meq ONCE ONCE NGT 02/20/20 10:30 02/20/20 10:31 UNV Vancomycin HCl (Vanco pharmacy to dose) 1 ea DAILY PRN MISC Per rx protocol 02/09/20 10:30 03/10/20 10:29 Vancomycin HCl 500 mg/Dextrose 110 ml @ 110 mls/hr Q12HR IVPB 02/18/20 21:00 02/23/20 20:59 02/20/20 09:06 Hong Camacho MD Feb 20, 2020 10:51"
--- NOTE | 2020-02-20 11:35 | NUR ---
CASE MANAGEMENT: REVIEW 02/20/20 SI:BILATERAL PLEURAL EFFUSION . RESP FAILURE . E-COLI UTI . BLOOD CX + STAPH AUREUS/STAPH CANITIS VRE+ . MRSA+ NARES 98.1 107 17 97/71 100% MECH VENT FIO2 30 NO LABS TODAY IS: IV magnesium sulfate x2 bags IV D5@75ML/HR IV AMPICILLIN Q6HR IV VANCOMYCIN BID LOPRESSOR GT BID CARDIZEM PO TID PRO-AMATINE PO TID SYNTHROID GT QD STEP DOWN UNIT STATUS DCP: PATIENT IS FROM [facility]: Thoracentesis us guided CONTROL HR
--- NOTE | 2020-02-20 11:41 | NUR ---
*-* INSURANCE *-* UPDATED CLINICALS AND REVIEWS HAVE BEEN FAXED TO: ROMAN ALVAREZ P: [phone] F: [phone] AUTH# [id number]
[2020-02-20 12:00] VITALS: BP 111/63
--- NOTE | 2020-02-20 12:46 | Surgery Progress Note ---
Surgery Progress Note Subjective Additional Comments no acute events labs noted exam stable comfortable Objective Last 24 Hour Vital Signs Date Time Temp Pulse Resp B/P (MAP) Pulse Ox O2 Delivery O2 Flow Rate FiO2 02/20/20 12:00 Mechanical Ventilator 02/20/20 12:00 30 02/20/20 11:05 114 20 30 02/20/20 10:35 114 02/20/20 09:20 110 20 30 02/20/20 09:01 105 131/57 02/20/20 08:00 96.8 105 14 131/57 (81) 100 02/20/20 08:00 30 02/20/20 08:00 Mechanical Ventilator 02/20/20 07:15 107 16 30 02/20/20 05:46 112 105/72 02/20/20 05:30 103 17 30 02/20/20 04:00 Mechanical Ventilator 02/20/20 04:00 30 02/20/20 04:00 98.1 94 16 116/65 (82) 100 02/20/20 03:52 130 02/20/20 02:35 92 16 30 02/20/20 01:00 91 15 30 02/20/20 00:00 30 02/20/20 00:00 Mechanical Ventilator 02/20/20 00:00 97.9 93 16 90/59 (69) 100 02/19/20 23:57 90 84/58 02/19/20 23:28 89 02/19/20 22:34 95 18 30 02/19/20 21:05 97 17 30 02/19/20 20:29 96 91/56 02/19/20 20:00 94 02/19/20 20:00 97.7 102 17 91/56 (68) 100 02/19/20 20:00 Mechanical Ventilator 02/19/20 20:00 30 02/19/20 19:15 95 17 30 02/19/20 17:57 95 96/69 02/19/20 16:48 95 02/19/20 16:00 30 02/19/20 16:00 Mechanical Ventilator 02/19/20 16:00 97.3 106 16 96/69 (78) 100 02/19/20 15:17 102 20 30 02/19/20 15:16 102 20 100 Mechanical Ventilator 30 I&O Intake and Output 02/19/20 02/20/20 19:00 07:00 Intake Total 915 ml 1815 ml Output Total 50 ml 900 ml Balance 865 ml 915 ml Intake Free Water 120 ml IV Total 75 ml 1155 ml Tube Feeding 720 ml 660 ml Output Urine Total 700 ml Stool Total 50 ml 200 ml # Bowel Movements 3 3 Dressing: dry Wound: clean Cardiovascular: RSR Respiratory: clear, decreased breath sounds Abdomen: non-tender, present bowel sounds Extremities: no tenderness, no cyanosis, other Laboratory Tests Test 02/19/20 20:10 02/20/20 07:27 Vancomycin Level Trough 19.9 ug/mL (5.0-12.0) H White Blood Count 5.0 K/UL (4.8-10.8) Red Blood Count 2.74 M/UL (4.20-5.40) L Hemoglobin 8.0 G/DL (12.0-16.0) L Hematocrit 26.6 % (37.0-47.0) L Mean Corpuscular Volume 97 FL (80-99) Mean Corpuscular Hemoglobin 29.4 PG (27.0-31.0) Mean Corpuscular Hemoglobin Concent 30.2 G/DL (32.0-36.0) L Red Cell Distribution Width 23.8 % (11.6-14.8) H Platelet Count 145 K/UL (150-450) L Mean Platelet Volume 7.6 FL (6.5-10.1) Neutrophils (%) (Auto) 68.1 % (45.0-75.0) Lymphocytes (%) (Auto) 12.0 % (20.0-45.0) L Monocytes (%) (Auto) 9.8 % (1.0-10.0) Eosinophils (%) (Auto) 9.3 % (0.0-3.0) H Basophils (%) (Auto) 0.8 % (0.0-2.0) Prothrombin Time 12.0 SEC (9.30-11.50) H Prothromb Time International Ratio 1.1 (0.9-1.1) Sodium Level 140 MMOL/L (136-145) Potassium Level 2.8 MMOL/L (3.5-5.1) L Chloride Level 107 MMOL/L (98-107) Carbon Dioxide Level 26 MMOL/L (21-32) Anion Gap 7 mmol/L (5-15) Blood Urea Nitrogen 7 mg/dL (7-18) Creatinine 0.6 MG/DL (0.55-1.30) Estimat Glomerular Filtration Rate > 60 mL/min (>60) Glucose Level 134 MG/DL (74-106) H Calcium Level 7.5 MG/DL (8.5-10.1) L Magnesium Level 1.5 MG/DL (1.8-2.4) L Pro-B-Type Natriuretic Peptide 7080 pg/mL (0-125) H Plan Problems: (1) Sepsis Assessment & Plan: Leukocytosis, anemia, lactic acidosis sepsis uro uti likely wounds noted and stable unlikely etiology nutritional optimization tf as tolerated vent support cxr noted d/cp marry improved placement DAILY ESTIMATED NEEDS: Needs based on Wound, critical care 52.3kg abw 25-30 kcals/kg [id number] total kcals 1.25-2 g protein/kg 65-105 g total protein 25-30 mL/kg 9465-5239 total fluid mLs NUTRITION DIAGNOSIS: Increased kcal and pro needs r/t wound healing as evidenced by pt w/multiple full thickness wounds, refer to wound care eval, pt is bedbound trach and peg dep. CURRENT TF: Glucerna 1.2 @60ml/hr x20 hrs ENTERAL NUTRITION RECOMMENDATIONS: Maintain Glucerna 1.2 w/ goal of 60ml/hr x20 hrs to provide 1200ml, 1440 kcal, 72g pro, 966ml free H2O - Maintain current TF rate to meet 100% est needs - Rec added PROSOURCE 1 pack daily (11g pro) to better meet est pro needs - Flush per HOB over 30 degrees ADDITIONAL RECOMMENDATIONS: 1) Wound care: add GT BID + Vit C 250mg BID 2) Per SNF: 61 inches (5'1") and last wt 145 lbs/65.91kg Maintain calibrated bed scale wts w/ added P200 mattress 3) Rec NISS + accuchecks for improved BG (2) UTI (urinary tract infection) (3) Pneumonia (4) Decubitus skin ulcer Assessment & Plan: Pt presented on admission with Pressure Injuries, Tracheostomy,Alopecia, Generalized Hypopigmented Skin plaques. Few plaques noted to be open lesions but are pink and dry. Skin assessed under collar of trach and no areas of skin breakdown noted. Full thickness Pressure injury noted to R Buttocks(L)5.7cm x (W)1.7cm x (D) 0.3cm. Base of wound is 90% beefy-red,10% slough. Borders are macerated . surrounding dry skin with hypopigmented plaques. Full thickness Pressure injury L Buttocks(L)4.6cm x (W)4.5cm. Base of wound has clusters wounds with intertwining bridges. Wounds have mixed slough and jack appearances. Small amt serous exudate noted. Surrounding dry hypopigmented skin plaques. Proximally and in close proximity skin is denuded. Small pustule with surrounding erythema noted L Hallux(L)0.5cm x (W)0.6cm. NO changes in skin temp periwound. An area of hyperpigmentation from previous wound noted to medial/posterior R Heel. L Heel is otherwise boggy with non-blanching erythema. Reabsorbed DTPI L Heel(L)2.2cm x (W)2cm. Dry brown eschar at base of wound. NO erythema or fluctuance periwound. Unstageable Pressure injury L lateral Malleolus(L)0.7cm x (W)0.9cm. Base of wound has 100% slough.edges dry and adherent to base of wound. No erythema, induration,or fluctuance periwound. Tx.Plan: Cleanse wounds R and L Buttocks with Saline. Apply Therahoney to wounds. Apply Moisture Barrier Paste Periwound. Cover with Optifoam drsg Daily and prn. Apply Betadine to wound R Hallux. Cover with Optifoam drsg every 3 days and prn. Apply Betadine to L lateral Malleolus. Cover with Optifoam drsg. Change every 3 days and prn. Apply Cavilon Skin Barrier to both heels. Cover each heel with Optifoam drsg. Change every 7 days and prn. Reposition at least every 2hours or as tolerated. Off-load heels with pillow. APM/ELIDIA Mattress overlay. SheldonZia Feb 20, 2020 12:46
--- NOTE | 2020-02-20 13:39 | Pre-Procedure Note/Attestation ---
Pre-Procedure Note/Attestation Complete Prior to Procedure Planned Procedure: not applicable Procedure Narrative: thoracentesis Indications for Procedure Pre-Operative Diagnosis: pleural effusion Attestation I attest that I discussed the nature of the procedure; its benefits; risks and complications; and alternatives (and the risks and benefits of such alternatives ), prior to the procedure, with the patient (or the patient's legal employment program representative). I attest that, if there was a reasonable possibility of needing a blood transfusion, the patient (or the patient's legal employment program representative) was given the [facility] standardized written summary, pursuant to the [employer] [place] Blood Safety Act ([place] Health and Safety Code # 1645, as amended). I attest that I re-evaluated the patient just prior to the surgery and that there has been no change in the patient's H&P, except as documented below: Discussed by phone with sarah Franklin at 1230 Campos Singh MD Feb 20, 2020 13:39
--- NOTE | 2020-02-20 14:39 | NUR ---
RADIOLOGY: CXR S/P THORACENTESIS PERFORMED 1430HRS. NF
[2020-02-20 16:00] VITALS: BP 129/79
--- NOTE | 2020-02-20 16:07 | Brief Operative Note ---
Immediate Post Operative Note Operative Note Pre-op Diagnosis: pleural effusion Procedure: R thoracentesis Post-op Diagnosis: same as pre-op Surgeon: Dalila Pinedo Anesthesia: local Specimen: none Complications: none Fluids: none Implant(s) used?: No Campos Pinedo MD Feb 20, 2020 16:07
--- NOTE | 2020-02-20 16:14 | Diagnostic Imaging Report ---
Indication: Postthoracentesis, shortness of breath Technique: One view of the chest Comparison: 02/15/2020 Findings: Right costophrenic angle is sharp, no residual pleural fluid demonstrated. No pneumothorax. Bilateral infiltrates are unchanged Impression: No residual pleural fluid, status post thoracentesis. No radiographically evident complication Stable bilateral infiltrates
--- NOTE | 2020-02-20 16:26 | Diagnostic Imaging Report ---
Indications: Pleural effusion Technique: Ultrasound used to localize optimal puncture site. Sterile prepping and draping right chest. Local anesthesia with 1% lidocaine. Under real-time ultrasound guidance, puncture pleural space using thoracentesis needle. Stylet removed. Catheter placed to vacuum bottle suction. Total 800 milliliters of fluid aspirated. Patient tolerated procedure well, without immediate complication. Findings: Followup sonography demonstrates near complete resolution of pleural fluid. Impression: Successful ultrasound-guided thoracentesis, yielding 800 milliliters of fluid
--- NOTE | 2020-02-20 19:30 | NUR ---
NURSE NOTES: Received pt's report from MAGI Osullivan. Pt is on the bed, open eyes. Pt is alert and requests her needs. Pt is non-verbal since pt is on vent. SpO2 100%, no s/s of respiratory distress noted. Pt is on Vann, yellow urine noted. Pt is on rectal tube. G-tube is running noted. IV site clean and intact noted. Pt is on semi ashford position, bed is low and locked. Will continue to monitor with plan of care.
--- NOTE | 2020-02-20 19:36 | NUR ---
NURSE HAND-OFF REPORT: Important Events on Shift: thoracentesis today 800ml output Patient Status: full code Diet: vital af @60ml/hr X20 Pending Orders: Pending Results/Labs: Pending MD notification: Latest Vital Signs: Temperature 97.5 , Pulse 111 , B/P 129 /79 , Respiratory Rate 20 , O2 SAT 100 , Mechanical Ventilator, O2 Flow Rate 15.0 . Vital Sign Comment: EKG Rhythm: Sinus tach Rhythm change?: N MD Notified?: - MD Response: Message left await call Latest Hope Fall Score: 35 Fall Risk: Medium Risk Safety Measures: Call light Within Reach, Bed Alarm Zone 1, Side Rails Side Rails x3, Bed position Low and Locked. Fall Precautions: Yellow Socks Patient Fall Education Report given to Brii SOW
[2020-02-20 20:00] VITALS: BP_SYST 129; BP_SYST 98; BP_DIAS 63; BP_DIAS 79
--- NOTE | 2020-02-20 20:28 | NUR ---
NURSE HAND-OFF REPORT: Important Events on Shift:N/A Patient Status: Stable Diet: GT, Vital AF 1.2 Pending Orders: N/A Pending Results/Labs:Thoracentesis culture Pending MD notification: Latest Vital Signs: Temperature 97.9 , Pulse 98 , B/P 98 /63 , Respiratory Rate 17 , O2 SAT 100 , Mechanical Ventilator, O2 Flow Rate 15.0 . Vital Sign Comment: Stable EKG Rhythm: Sinus Rhythm Rhythm change?: N MD Notified?: - MD Response: Message left await call Latest Hope Fall Score: 35 Fall Risk: Medium Risk Safety Measures: Call light Within Reach, Bed Alarm Zone 1, Side Rails Side Rails x3, Bed position Low and Locked. Fall Precautions: Yellow Socks Patient Fall Education Report given to MAGI HERNANDEZ.
--- NOTE | 2020-02-20 20:30 | NUR ---
NURSE NOTES: Received report from MAGI Teresa. Patient asleep in bed, afebrile and no respiratory distress noted. On mech vent via trache Shiley 8, AC 14, TV 550, Fi02 30%, P5 saturating at 99-100%. With Right FA 22g intact, patent and asymptomatic. On Vital AF at 60cc/hr via GT intact, no residual noted and infusing well. with Vann catheter to UB draining well w/o sediments. With Rectal tube in place draining well. HOB elevated. Call light within reach. Bed rails are up and wheels are locked. Continue plan of care.
--- NOTE | 2020-02-20 20:37 | General Progress Note ---
Assessment/Plan Assessment/Plan: Assessment - Diarrhea - improved off of Mylanta - ? component of TF or antibiotic diarrhea - Resp failure - s/p trach - dysphagia - s/p PEG Recommendations - continue Vital AF - GT care - elevate HOB - monitor stool output - trial of daily imodium Subjective Allergies: Coded Allergies: No Known Allergies (Unverified , 02/09/20) Subjective above noted no events overnight still with some diarrhea up to 300 cc per day (+) rectal bag Objective Last 24 Hour Vital Signs Date Time Temp Pulse Resp B/P (MAP) Pulse Ox O2 Delivery O2 Flow Rate FiO2 02/20/20 19:14 111 20 30 02/20/20 17:05 107 21 30 02/20/20 16:00 30 02/20/20 16:00 97.5 109 19 129/79 (96) 100 02/20/20 16:00 Mechanical Ventilator 02/20/20 15:32 111 02/20/20 15:19 110 111/63 02/20/20 15:05 110 16 30 02/20/20 12:00 Mechanical Ventilator 02/20/20 12:00 110 02/20/20 12:00 97.7 101 18 111/63 (79) 100 02/20/20 12:00 30 02/20/20 11:05 114 20 30 02/20/20 10:35 114 02/20/20 09:20 110 20 30 02/20/20 09:01 105 131/57 02/20/20 08:00 96.8 105 14 131/57 (81) 100 02/20/20 08:00 30 02/20/20 08:00 Mechanical Ventilator 02/20/20 07:15 107 16 30 02/20/20 05:46 112 105/72 02/20/20 05:30 103 17 30 02/20/20 04:00 Mechanical Ventilator 02/20/20 04:00 30 02/20/20 04:00 98.1 94 16 116/65 (82) 100 02/20/20 03:52 130 02/20/20 02:35 92 16 30 02/20/20 01:00 91 15 30 02/20/20 00:00 30 02/20/20 00:00 Mechanical Ventilator 02/20/20 00:00 97.9 93 16 90/59 (69) 100 02/19/20 23:57 90 84/58 02/19/20 23:28 89 02/19/20 22:34 95 18 30 02/19/20 21:05 97 17 30 Intake and Output 02/19/20 02/20/20 19:00 07:00 Intake Total 915 ml 1815 ml Output Total 50 ml 900 ml Balance 865 ml 915 ml Intake Free Water 120 ml IV Total 75 ml 1155 ml Tube Feeding 720 ml 660 ml Output Urine Total 700 ml Stool Total 50 ml 200 ml # Bowel Movements 3 3 Laboratory Tests 02/20/20 07:27: White Blood Count 5.0, Red Blood Count 2.74L, Hemoglobin 8.0L, Hematocrit 26.6L , Mean Corpuscular Volume 97, Mean Corpuscular Hemoglobin 29.4, Mean Corpuscular Hemoglobin Concent 30.2L, Red Cell Distribution Width 23.8H, Platelet Count 145L, Mean Platelet Volume 7.6, Neutrophils (%) (Auto) 68.1, Lymphocytes (%) (Auto) 12.0L, Monocytes (%) (Auto) 9.8, Eosinophils (%) (Auto) 9.3H, Basophils (%) (Auto) 0.8, Prothrombin Time 12.0H, Prothromb Time International Ratio 1.1, Sodium Level 140, Potassium Level 2.8L, Chloride Level 107, Carbon Dioxide Level 26, Anion Gap 7, Blood Urea Nitrogen 7, Creatinine 0.6 , Estimat Glomerular Filtration Rate > 60, Glucose Level 134H, Calcium Level 7.5L, Magnesium Level 1.5L, Pro-B-Type Natriuretic Peptide 7080H 02/20/20 13:30: Body Fluid Glucose [Pending], Body Fluid Total Protein [Pending], Body Fluid Lactate Dehydrogenase [Pending] Height (Feet): 5 Height (Inches): 3.00 Weight (Pounds): 159 Objective debilitated AA woman NCAT (++) viteligo supple, (+) trach CTA RRR abd soft ND NT, (+) GT no edema Priti Sequeira MD Feb 20, 2020 20:37
[2020-02-21] VITALS: BP 118/64
--- NOTE | 2020-02-21 01:26 | Cardiology Progress Note ---
Subjective DATE OF SERVICE: Feb 20, 2020 s/P right pleural effusion On vent support with low BP range. Monitor: sinus tachycardia with improved heart rates; no recurring AFlutter today. Troponin in low range without significant progression Has moderate secretions from trach. Has decreasing diarrhea - CDiff toxin negative Venous Duplex negative for DVT CXR (02/14) still with bilateral infiltrates Sodium levels normalized - patient on IVF repl; potassium has dropped to 2.8 Objective Last 24 Hour Vital Signs Date Time Temp Pulse Resp B/P (MAP) Pulse Ox O2 Delivery O2 Flow Rate FiO2 02/21/20 00:00 Mechanical Ventilator 02/21/20 00:00 30 02/21/20 00:00 97.6 98 19 118/64 (82) 100 02/20/20 23:28 99 02/20/20 23:22 98 17 30 02/20/20 21:40 104 98/63 02/20/20 21:00 104 98/63 02/20/20 20:58 104 17 30 02/20/20 20:00 Mechanical Ventilator 02/20/20 20:00 97.9 96 19 98/63 (75) 100 02/20/20 20:00 30 02/20/20 19:14 111 20 30 02/20/20 19:04 112 02/20/20 17:05 107 21 30 02/20/20 16:00 30 02/20/20 16:00 97.5 109 19 129/79 (96) 100 02/20/20 16:00 Mechanical Ventilator 02/20/20 15:32 111 02/20/20 15:19 110 111/63 02/20/20 15:05 110 16 30 02/20/20 12:00 Mechanical Ventilator 02/20/20 12:00 110 02/20/20 12:00 97.7 101 18 111/63 (79) 100 02/20/20 12:00 30 02/20/20 11:05 114 20 30 02/20/20 10:35 114 02/20/20 09:20 110 20 30 02/20/20 09:01 105 131/57 02/20/20 08:00 96.8 105 14 131/57 (81) 100 02/20/20 08:00 30 02/20/20 08:00 Mechanical Ventilator 02/20/20 07:15 107 16 30 02/20/20 05:46 112 105/72 02/20/20 05:30 103 17 30 02/20/20 04:00 Mechanical Ventilator 02/20/20 04:00 30 02/20/20 04:00 98.1 94 16 116/65 (82) 100 02/20/20 03:52 130 02/20/20 02:35 92 16 30 ROS: unchanged from my note of 02/09/20 HEENT: Mechanically Ventilated, Thick Trach secretions RHYTHM: ST LUNGS: bilateral rhonchi CARDIAC: regular rhythm, normal S1 and S2, rapid rate, gallop/S4 ABDOMEN: normal bowel sounds, non tender, soft, no organomegaly, G-Tube intact EXTREMITIES: non-tender, no calf tenderness, No edema Laboratory Tests Test 02/20/20 07:27 02/20/20 13:30 White Blood Count 5.0 K/UL (4.8-10.8) Red Blood Count 2.74 M/UL (4.20-5.40) L Hemoglobin 8.0 G/DL (12.0-16.0) L Hematocrit 26.6 % (37.0-47.0) L Mean Corpuscular Volume 97 FL (80-99) Mean Corpuscular Hemoglobin 29.4 PG (27.0-31.0) Mean Corpuscular Hemoglobin Concent 30.2 G/DL (32.0-36.0) L Red Cell Distribution Width 23.8 % (11.6-14.8) H Platelet Count 145 K/UL (150-450) L Mean Platelet Volume 7.6 FL (6.5-10.1) Neutrophils (%) (Auto) 68.1 % (45.0-75.0) Lymphocytes (%) (Auto) 12.0 % (20.0-45.0) L Monocytes (%) (Auto) 9.8 % (1.0-10.0) Eosinophils (%) (Auto) 9.3 % (0.0-3.0) H Basophils (%) (Auto) 0.8 % (0.0-2.0) Prothrombin Time 12.0 SEC (9.30-11.50) H Prothromb Time International Ratio 1.1 (0.9-1.1) Sodium Level 140 MMOL/L (136-145) Potassium Level 2.8 MMOL/L (3.5-5.1) L Chloride Level 107 MMOL/L (98-107) Carbon Dioxide Level 26 MMOL/L (21-32) Anion Gap 7 mmol/L (5-15) Blood Urea Nitrogen 7 mg/dL (7-18) Creatinine 0.6 MG/DL (0.55-1.30) Estimat Glomerular Filtration Rate > 60 mL/min (>60) Glucose Level 134 MG/DL (74-106) H Calcium Level 7.5 MG/DL (8.5-10.1) L Magnesium Level 1.5 MG/DL (1.8-2.4) L Pro-B-Type Natriuretic Peptide 7080 pg/mL (0-125) H Body Fluid Glucose Pending Body Fluid Total Protein Pending Body Fluid Lactate Dehydrogenase Pending Assessment/Plan Assessment/Plan Severe sepsis Diarrhea with negative [facility] polymicrobial PNA Polymicrobial UTI Respiratory failure with trach Sinus tachycardia Paroxysmal atrial flutter Acute myocardial ischemia with elevated troponin levels and possible NSTEMI Moderate protein calorie malnutrition Acute on chronic respiratory acidosis Sinus node disease Dehydration/hypernatremia Hypokalemia Pleural effusions - s/p right thorocentesis Ac/chronic diastolic CHF Vent support Replace fluid and electrolyte losses; free water replacement as needed. Resume maintenance diuretic dosing over next 24hrs. Abx Titrate beta mingo; titrate diltiazem DVT prophylaxis Nutritional support by GTUbe Monitor acid-base parameters and adjust settings. Luis Felipe Sorto MD Feb 21, 2020 01:25
--- NOTE | 2020-02-21 02:49 | NUR ---
RESPIRATORY NOTE: PT RECEIVED STABLE ON CMV WITH CURRENT SETTINGS: AC 14, 550, 30%,+5. ALARMS ARE ON AND AUDIBLE. CIRCUIT IS SECURE AND OUT OF THE WAY. NO S/S OF RESPIRATORY DISTRESS ARE NOTED AT THIS TIME. WILL CONTINUE TO MONITOR.
[2020-02-21 04:00] VITALS: BP 132/68
--- NOTE | 2020-02-21 05:15 | NUR ---
RESPIRATORY NOTE: PT REMAINED STABLE ON CMV WITH CURRENT SETTINGS. SX PRN. AIRWAY IS SECURE AND PATENT. NO S/S OF RESPIRATORY DISTRESS NOTED AT THIS TIME.
[2020-02-21] MEDS: dilTIAZem HCl 30mg tab ORAL SCH ×2 (05:50→13:41)
--- NOTE | 2020-02-21 07:15 | NUR ---
NURSE NOTES: Nurser report given by MARY RN. Patient's sleeping in bed, but easily awaken, dysphasia, AO x 2, Icelandic speaking only. Trach/Vent present, settings: AC 14, Tv 550, FIO2 30%, Peeps 5. GT feeding noted, patent, flushed, no residuals. IV running fluid, no s/s of tenderness or infiltration. Rectal tube noted. Vann noted, draining well, yellow color. Skin assessment performed. Bed low and locked, call light within reach, side rails x 3, bed alarm is armed. Will continue to monitor.
[2020-02-21 07:59] VITALS: BP 151/72
--- NOTE | 2020-02-21 08:00 | NUR ---
NURSE NOTES: Oral care and trach suction provided. Patient tolerated well.
[2020-02-21] MEDS: Metoprolol Tartrate 50mg tab GT SCH (08:14)
[2020-02-21] MEDS: Vancomycin 500mg/D5W 110ml IVPB SCH ×2 (08:15)
[2020-02-21] MEDS: Ascorbic Acid 500mg tab ORAL SCH ×2 (08:15→18:19)
--- NOTE | 2020-02-21 08:32 | General Progress Note ---
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 s/p tap 3rd spacing PLAN gi follow up iv antibiotics ID noted on midodrine wound care all consultants appreciated dc planning monitor HH impression, plan, and exam edited and reviewed in detail care discussed with RN Subjective ROS Limited/Unobtainable: Yes Allergies: Coded Allergies: No Known Allergies (Unverified , 02/09/20) Subjective JAMES care reviewed improved hemodynamics s/p tap Objective Last 24 Hour Vital Signs Date Time Temp Pulse Resp B/P (MAP) Pulse Ox O2 Delivery O2 Flow Rate FiO2 02/21/20 08:14 98 151/72 02/21/20 08:00 30 02/21/20 07:59 97.9 98 17 151/72 (98) 100 02/21/20 07:00 96 14 30 02/21/20 05:50 102 132/68 02/21/20 05:15 111 18 30 02/21/20 04:00 30 02/21/20 04:00 Mechanical Ventilator 02/21/20 04:00 Mechanical Ventilator 02/21/20 04:00 97.7 94 19 132/68 (89) 100 02/21/20 03:44 95 02/21/20 03:09 92 14 30 02/21/20 00:40 103 15 30 02/21/20 00:00 Mechanical Ventilator 02/21/20 00:00 30 02/21/20 00:00 97.6 98 19 118/64 (82) 100 02/20/20 23:28 99 02/20/20 23:22 98 17 30 02/20/20 21:40 104 98/63 02/20/20 21:00 104 98/63 02/20/20 20:58 104 17 30 02/20/20 20:00 Mechanical Ventilator 02/20/20 20:00 97.9 96 19 98/63 (75) 100 02/20/20 20:00 30 02/20/20 19:14 111 20 30 02/20/20 19:04 112 02/20/20 17:05 107 21 30 02/20/20 16:00 30 02/20/20 16:00 97.5 109 19 129/79 (96) 100 02/20/20 16:00 Mechanical Ventilator 02/20/20 15:32 111 02/20/20 15:19 110 111/63 02/20/20 15:05 110 16 30 02/20/20 12:00 Mechanical Ventilator 02/20/20 12:00 110 02/20/20 12:00 97.7 101 18 111/63 (79) 100 02/20/20 12:00 30 02/20/20 11:05 114 20 30 02/20/20 10:35 114 02/20/20 09:20 110 20 30 02/20/20 09:01 105 131/57 Intake and Output 02/20/20 02/21/20 19:00 07:00 Intake Total 1220 ml 1729 ml Output Total 500 ml Balance 1220 ml 1229 ml IV Total 860 ml 1009 ml Tube Feeding 360 ml 720 ml Output Urine Total 500 ml # Bowel Movements 3 Laboratory Tests 02/20/20 13:30: Body Fluid Glucose [Pending], Body Fluid Total Protein [Pending], Body Fluid Lactate Dehydrogenase [Pending] Height (Feet): 5 Height (Inches): 3.00 Weight (Pounds): 159 Objective WDWN NAD trach reduced breath sounds bilaterally without rhonchi or wheeze [id number] without MRG NABS nontender GT no CC noted edema nonfocal chronic rash Stevenson Medina MD Feb 21, 2020 08:32
--- NOTE | 2020-02-21 08:34 | NUR ---
RD ASSESSMENT & RECOMMENDATIONS SEE CARE ACTIVITY FOR COMPLETE ASSESSMENT DAILY ESTIMATED NEEDS: Needs based on Wound, critical care 52.3kg abw 25-30 kcals/kg 4110-7333 total kcals 1.25-2 g protein/kg 65-105 g total protein 25-30 mL/kg 8112-5016 total fluid mLs NUTRITION DIAGNOSIS: Increased kcal and pro needs r/t wound healing as evidenced by pt w/multiple full thickness wounds, refer to wound care eval, pt is bedbound trach and peg dep. CURRENT TF:Vital AF 1.2 @60ml/hr x20 hrs ENTERAL NUTRITION RECOMMENDATIONS: Vital AF 1.2 @60ml/hr x20 hrs to provide 1200ml, 1440 kcal, 90pro, 973ml free H2O - Maintain elemental TF formula of Vital AF w/ continued diarrhea - TF meets 100% est needs at goal - Flush per MD. HOB over 30 degrees ADDITIONAL RECOMMENDATIONS: 1) Wound care: add GT BID + continue Vit C 2) Per SNF: 61 inches (5'1") and last wt 145 lbs/65.91kg Maintain calibrated bed scale wts w/ added P200 mattress 3) Rec NISS + accuchecks for improved BG 4) Replete lytes w/ diarrhea (last K and mag low, s/p repletion) -> add water flushes vs added D5% for hydration for improved BG
[2020-02-21 09:20] LABS: ANION GAP 7 mmol/L (5-15); BLOOD UREA NITROGEN 6 mg/dL (7-18); CALCIUM 7.8 MG/DL (8.5-10.1); CARBON DIOXIDE 25 MMOL/L (21-32); CHLORIDE 107 MMOL/L (98-107); CREATININE 0.5 MG/DL (0.55-1.30); POTASSIUM 3.1 MMOL/L (3.5-5.1); SODIUM 139 MMOL/L (136-145)
--- NOTE | 2020-02-21 09:24 | General Progress Note ---
Assessment/Plan Assessment/Plan: Assessment - Diarrhea - improved off of Mylanta - ? component of TF or antibiotic diarrhea - Resp failure - s/p trach - dysphagia - s/p PEG Recommendations - continue Vital AF - GT care - elevate HOB - monitor stool output - trial of daily imodium Subjective Allergies: Coded Allergies: No Known Allergies (Unverified , 02/09/20) Subjective above noted no events overnight still with some diarrhea on trial of daily imodium Objective Last 24 Hour Vital Signs Date Time Temp Pulse Resp B/P (MAP) Pulse Ox O2 Delivery O2 Flow Rate FiO2 02/21/20 09:09 98 16 30 02/21/20 08:14 98 151/72 02/21/20 08:00 30 02/21/20 07:59 97.9 98 17 151/72 (98) 100 02/21/20 07:00 96 14 30 02/21/20 05:50 102 132/68 02/21/20 05:15 111 18 30 02/21/20 04:00 30 02/21/20 04:00 Mechanical Ventilator 02/21/20 04:00 Mechanical Ventilator 02/21/20 04:00 97.7 94 19 132/68 (89) 100 02/21/20 03:44 95 02/21/20 03:09 92 14 30 02/21/20 00:40 103 15 30 02/21/20 00:00 Mechanical Ventilator 02/21/20 00:00 30 02/21/20 00:00 97.6 98 19 118/64 (82) 100 02/20/20 23:28 99 02/20/20 23:22 98 17 30 02/20/20 21:40 104 98/63 02/20/20 21:00 104 98/63 02/20/20 20:58 104 17 30 02/20/20 20:00 Mechanical Ventilator 02/20/20 20:00 97.9 96 19 98/63 (75) 100 02/20/20 20:00 30 02/20/20 19:14 111 20 30 02/20/20 19:04 112 02/20/20 17:05 107 21 30 02/20/20 16:00 30 02/20/20 16:00 97.5 109 19 129/79 (96) 100 02/20/20 16:00 Mechanical Ventilator 02/20/20 15:32 111 02/20/20 15:19 110 111/63 02/20/20 15:05 110 16 30 02/20/20 12:00 Mechanical Ventilator 02/20/20 12:00 110 02/20/20 12:00 97.7 101 18 111/63 (79) 100 02/20/20 12:00 30 02/20/20 11:05 114 20 30 02/20/20 10:35 114 Intake and Output 02/20/20 02/21/20 19:00 07:00 Intake Total 1220 ml 1729 ml Output Total 500 ml Balance 1220 ml 1229 ml IV Total 860 ml 1009 ml Tube Feeding 360 ml 720 ml Output Urine Total 500 ml # Bowel Movements 3 Laboratory Tests 02/20/20 13:30: Body Fluid Glucose [Pending], Body Fluid Total Protein [Pending], Body Fluid Lactate Dehydrogenase [Pending] 02/21/20 08:35: Sodium Level 139, Potassium Level 3.1L, Chloride Level 107, Carbon Dioxide Level 25, Anion Gap 7, Blood Urea Nitrogen 6L, Creatinine 0.5L, Estimat Glomerular Filtration Rate > 60, Glucose Level 141H, Calcium Level 7.8L, Magnesium Level 1.9 Height (Feet): 5 Height (Inches): 3.00 Weight (Pounds): 159 Objective debilitated AA woman NCAT (++) viteligo supple, (+) trach CTA RRR abd soft ND NT, (+) GT no edema Priti Sequeira MD Feb 21, 2020 09:24
--- NOTE | 2020-02-21 10:35 | Infectious Diseases Prog Note ---
Assessment/Plan Assessment/Plan A: 1. Acinetobacter pneumonia,treated COVID-19 rapid test was negative. 2. Respiratory failure, status post tracheostomy. 3. Urinary tract infection with ESBL E. coli & Proteus 4. MRSA sepsis 5. Sinus tachycardia PLAN: 1. Continue IV vancomycin X 1 day 2. We will follow up cultures Subjective ROS Limited/Unobtainable: Yes Constitutional: Denies: fever Respiratory: Reports: other - had thoracentesis , 800cc fluid was removed Gastrointestinal/Abdominal: Reports: other - Pain Allergies: Coded Allergies: No Known Allergies (Unverified , 02/09/20) Objective Last 24 Hour Vital Signs Date Time Temp Pulse Resp B/P (MAP) Pulse Ox O2 Delivery O2 Flow Rate FiO2 02/21/20 09:09 98 16 30 02/21/20 08:14 98 151/72 02/21/20 08:00 Mechanical Ventilator 02/21/20 08:00 103 02/21/20 08:00 30 02/21/20 07:59 97.9 98 17 151/72 (98) 100 02/21/20 07:00 96 14 30 02/21/20 05:50 102 132/68 02/21/20 05:15 111 18 30 02/21/20 04:00 30 02/21/20 04:00 Mechanical Ventilator 02/21/20 04:00 Mechanical Ventilator 02/21/20 04:00 97.7 94 19 132/68 (89) 100 02/21/20 03:44 95 02/21/20 03:09 92 14 30 02/21/20 00:40 103 15 30 02/21/20 00:00 Mechanical Ventilator 02/21/20 00:00 30 02/21/20 00:00 97.6 98 19 118/64 (82) 100 02/20/20 23:28 99 02/20/20 23:22 98 17 30 02/20/20 21:40 104 98/63 02/20/20 21:00 104 98/63 02/20/20 20:58 104 17 30 02/20/20 20:00 Mechanical Ventilator 02/20/20 20:00 97.9 96 19 98/63 (75) 100 02/20/20 20:00 30 02/20/20 19:14 111 20 30 02/20/20 19:04 112 8/26/20 17:05 107 21 30 02/20/20 16:00 30 02/20/20 16:00 97.5 109 19 129/79 (96) 100 02/20/20 16:00 Mechanical Ventilator 02/20/20 15:32 111 02/20/20 15:19 110 111/63 02/20/20 15:05 110 16 30 02/20/20 12:00 Mechanical Ventilator 02/20/20 12:00 110 02/20/20 12:00 97.7 101 18 111/63 (79) 100 02/20/20 12:00 30 02/20/20 11:05 114 20 30 02/20/20 10:35 114 Height (Feet): 5 Height (Inches): 3.00 Weight (Pounds): 159 HEENT: status post trach Respiratory/Chest: rhonchi - bilaterally, other - on ventilator Cardiovascular: normal rate Abdomen: soft, non tender, other - GT feeding Extremities: other - edema Skin: other - superficial skin ulcers & Vitiligo Neurologic/Psychiatric: alert, responsive Microbiology Date/Time Source Procedure Growth Status 02/20/20 13:30 Body Fluid Gram Stain - Final Resulted 02/20/20 13:30 Body Fluid Body Fluid Culture - Preliminary NO GROWTH Resulted Laboratory Tests Test 02/20/20 13:30 02/21/20 08:35 Body Fluid Glucose Pending Body Fluid Total Protein Pending Body Fluid Lactate Dehydrogenase Pending Sodium Level 139 MMOL/L (136-145) Potassium Level 3.1 MMOL/L (3.5-5.1) L Chloride Level 107 MMOL/L (98-107) Carbon Dioxide Level 25 MMOL/L (21-32) Anion Gap 7 mmol/L (5-15) Blood Urea Nitrogen 6 mg/dL (7-18) L Creatinine 0.5 MG/DL (0.55-1.30) L Estimat Glomerular Filtration Rate > 60 mL/min (>60) Glucose Level 141 MG/DL (74-106) H Calcium Level 7.8 MG/DL (8.5-10.1) L Magnesium Level 1.9 MG/DL (1.8-2.4) Current Medications Medications (Trade) Dose Ordered Sig/Lucy Route PRN Reason Start Time Stop Time Status Last Admin Dose Admin Acetaminophen (Tylenol) 650 mg Q4H PRN GT Mild Pain (Pain Scale 1-3) 02/09/20 10:30 03/10/20 10:29 02/13/20 21:00 Ascorbic Acid (Vitamin C) 250 mg TWICE A DAY ORAL 02/11/20 18:00 03/12/20 17:59 02/21/20 08:15 Clonidine HCl (Catapres Tab) 0.1 mg Q4H PRN GT For High Blood Pressure 02/09/20 13:45 05/09/20 13:44 Clotrimazole (Lotrimin) 1 applic THREE TIMES A DAY TOPIC 02/20/20 21:00 05/20/20 20:59 02/21/20 08:15 Diltiazem HCl (Cardizem Tab) 30 mg EVERY 8 HOURS ORAL 02/20/20 06:00 03/21/20 05:59 02/21/20 05:50 Diphenhydramine HCl (Benadryl) 25 mg Q6H PRN GT ITCHING 02/09/20 10:30 03/10/20 10:29 02/16/20 08:18 Diphenoxylate HCl/ Atropine (Lomotil) 2.5 mg Q6H PRN GT Diarrhea 02/13/20 11:00 03/14/20 10:59 Lansoprazole (Prevacid) 30 mg DAILY GT 02/10/20 09:00 03/11/20 08:59 02/21/20 08:15 Levothyroxine Sodium (Synthroid) 75 mcg DAILY GT 02/12/20 09:00 03/11/20 08:59 02/21/20 08:14 Loperamide HCl (Imodium) 2 mg DAILY GT 02/21/20 09:00 03/22/20 08:59 02/21/20 08:14 Metoprolol Tartrate (Lopressor) 50 mg EVERY 12 HOURS GT 02/14/20 09:00 05/14/20 08:59 02/21/20 08:14 Midodrine (Pro-Amatine) 2.5 mg THREE TIMES A DAY ORAL 02/19/20 09:00 05/19/20 08:59 02/21/20 08:15 Vancomycin HCl (Vanco pharmacy to dose) 1 ea DAILY PRN MISC Per rx protocol 02/09/20 10:30 03/10/20 10:29 Vancomycin HCl 500 mg/Dextrose 110 ml @ 110 mls/hr Q12HR IVPB 02/18/20 21:00 02/23/20 20:59 02/21/20 08:15 Arnoldo West MD Feb 21, 2020 10:35
[2020-02-21 12:00] VITALS: BP 119/65
[2020-02-21] MEDS ORDERED: D5NS 1000ml IV ONE (12:09)
[2020-02-21] MEDS ORDERED: Tubing IV Secondary IV ONE (12:09)
[2020-02-21] MEDS ORDERED: NS 275ml ONE ×2 (12:09→13:39)
--- NOTE | 2020-02-21 12:16 | NUR ---
NURSE NOTES: Oral care and trach suction provided. Patient tolerated well.
--- NOTE | 2020-02-21 13:06 | NUR ---
DISCHARGE PLANNING: NOTE CM CONSULT ORDER NOTED [facility] IS ACCEPTING THIS PT BACK. OFELIA MADE MD MCKEE AWARE. AWAITING DC ORDER UPDATED CLINICALS FAXED TO [facility] FOR REVIEW Addendum: 02/21/20 at 1608 by Sulma Vasquez CM CLEARED BY CARDIO OFELIA MADE DR MCKEE AWARE. DC ORDER GIVEN ROOM REQUESTED FROM [facility] ROOM 208 PROVIDED
--- NOTE | 2020-02-21 13:08 | NUR ---
CASE MANAGEMENT: REVIEW 02/21/2020 SI:SEPSIS. PNA. VS: T 97.9 HR 97 RR 17 B/P 119/65 SATS 100% ON MECH VENT FIO2 30 LABS: K 3.1 BUN 6 CR 0.5 GLU 141 CA 7.8 IS:CARDIZEM PO Q8H LOPRESSOR GT Q12H PREVACID GT QD IMODIUM GT QD VANCO IV Q12H SDU DCP: [facility]
--- NOTE | 2020-02-21 13:12 | NUR ---
INSURANCE UPDATED CLINICALS AND REVIEW HAVE BEEN FAXED TO: [facility] P: [phone] F: [phone] AUTH# [id number]
[2020-02-21] MEDS: DiphenhydrAMINE 25mg/10ml Elixir GT PRN (13:41)
[2020-02-21 16:00] VITALS: BP 98/55
--- NOTE | 2020-02-21 16:17 | NUR ---
DISCHARGE DISPOSITION: PLEASE READ PATIENT TO BE DISCHARGED TO [facility] [address] [facility] ROOM [address] A T: [phone]>>> CALL FOR REPORT LIFELINE W/ RT ETA 1830 VM LEFT FOR ISAAC TIAN [phone] AND ALLEGRA TIAN T: [phone] TRANSFER REPORT TO BE PROVIDED Addendum: 02/21/20 at 1724 by Sulma Vasquez CM OFELIA S/W ISAAC DINH REGARDING DC. PT WANTS TO SEE HIS MOTHER DURING VISITING HOURS. SON IS AGREEABLE AND UNDERSTANDS THAT DC CANNOT BE HELD UNLESS THERES A MEDICAL NECESSITY. NURSING UPDATED
--- NOTE | 2020-02-21 17:00 | Surgery Progress Note ---
Surgery Progress Note Subjective Additional Comments seems placement found possible transfer soon comfortable exam stable improved cont with care plan as below up on d c Objective Last 24 Hour Vital Signs Date Time Temp Pulse Resp B/P (MAP) Pulse Ox O2 Delivery O2 Flow Rate FiO2 02/21/20 14:46 104 16 30 02/21/20 13:41 113 119/65 02/21/20 13:21 113 21 30 02/21/20 12:00 97 02/21/20 12:00 30 02/21/20 12:00 Mechanical Ventilator 02/21/20 12:00 97.9 97 17 119/65 (83) 100 02/21/20 11:27 100 16 30 02/21/20 09:09 98 16 30 02/21/20 08:14 98 151/72 02/21/20 08:00 Mechanical Ventilator 02/21/20 08:00 103 02/21/20 08:00 30 02/21/20 07:59 97.9 98 17 151/72 (98) 100 02/21/20 07:00 96 14 30 02/21/20 05:50 102 132/68 02/21/20 05:15 111 18 30 02/21/20 04:00 30 02/21/20 04:00 Mechanical Ventilator 02/21/20 04:00 Mechanical Ventilator 02/21/20 04:00 97.7 94 19 132/68 (89) 100 02/21/20 03:44 95 02/21/20 03:09 92 14 30 02/21/20 00:40 103 15 30 02/21/20 00:00 Mechanical Ventilator 02/21/20 00:00 30 02/21/20 00:00 97.6 98 19 118/64 (82) 100 02/20/20 23:28 99 02/20/20 23:22 98 17 30 02/20/20 21:40 104 98/63 02/20/20 21:00 104 98/63 02/20/20 20:58 104 17 30 02/20/20 20:00 Mechanical Ventilator 02/20/20 20:00 97.9 96 19 98/63 (75) 100 02/20/20 20:00 30 02/20/20 19:14 111 20 30 02/20/20 19:04 112 02/20/20 17:05 107 21 30 I&O Intake and Output 02/20/20 02/21/20 19:00 07:00 Intake Total 1220 ml 1729 ml Output Total 500 ml Balance 1220 ml 1229 ml IV Total 860 ml 1009 ml Tube Feeding 360 ml 720 ml Output Urine Total 500 ml # Bowel Movements 3 Dressing: dry Wound: clean Cardiovascular: RSR Respiratory: clear, decreased breath sounds Abdomen: soft, non-tender, present bowel sounds Extremities: no tenderness, no cyanosis Laboratory Tests Test 02/21/20 08:35 Sodium Level 139 MMOL/L (136-145) Potassium Level 3.1 MMOL/L (3.5-5.1) L Chloride Level 107 MMOL/L (98-107) Carbon Dioxide Level 25 MMOL/L (21-32) Anion Gap 7 mmol/L (5-15) Blood Urea Nitrogen 6 mg/dL (7-18) L Creatinine 0.5 MG/DL (0.55-1.30) L Estimat Glomerular Filtration Rate > 60 mL/min (>60) Glucose Level 141 MG/DL (74-106) H Calcium Level 7.8 MG/DL (8.5-10.1) L Magnesium Level 1.9 MG/DL (1.8-2.4) Plan Problems: (1) Sepsis Assessment & Plan: Leukocytosis, anemia, lactic acidosis sepsis uro uti likely wounds noted and stable unlikely etiology nutritional optimization tf as tolerated vent support cxr noted d/cp marry improved placement DAILY ESTIMATED NEEDS: Needs based on Wound, critical care 52.3kg abw 25-30 kcals/kg 5351-9107 total kcals 1.25-2 g protein/kg 65-105 g total protein 25-30 mL/kg 8036-5899 total fluid mLs NUTRITION DIAGNOSIS: Increased kcal and pro needs r/t wound healing as evidenced by pt w/multiple full thickness wounds, refer to wound care eval, pt is bedbound trach and peg dep. CURRENT TF: Glucerna 1.2 @60ml/hr x20 hrs ENTERAL NUTRITION RECOMMENDATIONS: Maintain Glucerna 1.2 w/ goal of 60ml/hr x20 hrs to provide 1200ml, 1440 kcal, 72g pro, 966ml free H2O - Maintain current TF rate to meet 100% est needs - Rec added PROSOURCE 1 pack daily (11g pro) to better meet est pro needs - Flush per HOB over 30 degrees ADDITIONAL RECOMMENDATIONS: 1) Wound care: add GT BID + Vit C 250mg BID 2) Per SNF: 61 inches (5'1") and last wt 145 lbs/65.91kg Maintain calibrated bed scale wts w/ added P200 mattress 3) Rec NISS + accuchecks for improved BG (2) UTI (urinary tract infection) (3) Pneumonia (4) Decubitus skin ulcer Assessment & Plan: Pt presented on admission with Pressure Injuries, Tracheostomy,Alopecia, Generalized Hypopigmented Skin plaques. Few plaques noted to be open lesions but are pink and dry. Skin assessed under collar of trach and no areas of skin breakdown noted. Full thickness Pressure injury noted to R Buttocks(L)5.7cm x (W)1.7cm x (D) 0.3cm. Base of wound is 90% beefy-red,10% slough. Borders are macerated . surrounding dry skin with hypopigmented plaques. Full thickness Pressure injury L Buttocks(L)4.6cm x (W)4.5cm. Base of wound has clusters wounds with intertwining bridges. Wounds have mixed slough and jack appearances. Small amt serous exudate noted. Surrounding dry hypopigmented skin plaques. Proximally and in close proximity skin is denuded. Small pustule with surrounding erythema noted L Hallux(L)0.5cm x (W)0.6cm. NO changes in skin temp periwound. An area of hyperpigmentation from previous wound noted to medial/posterior R Heel. L Heel is otherwise boggy with non-blanching erythema. Reabsorbed DTPI L Heel(L)2.2cm x (W)2cm. Dry brown eschar at base of wound. NO erythema or fluctuance periwound. Unstageable Pressure injury L lateral Malleolus(L)0.7cm x (W)0.9cm. Base of wound has 100% slough.edges dry and adherent to base of wound. No erythema, induration,or fluctuance periwound. Tx.Plan: Cleanse wounds R and L Buttocks with Saline. Apply Therahoney to wounds. Apply Moisture Barrier Paste Periwound. Cover with Optifoam drsg Daily and prn. Apply Betadine to wound R Hallux. Cover with Optifoam drsg every 3 days and prn. Apply Betadine to L lateral Malleolus. Cover with Optifoam drsg. Change every 3 days and prn. Apply Cavilon Skin Barrier to both heels. Cover each heel with Optifoam drsg. Change every 7 days and prn. Reposition at least every 2hours or as tolerated. Off-load heels with pillow. APM/ELIDIA Mattress overlay. Zia Chung Feb 21, 2020 17:00
--- NOTE | 2020-02-21 18:53 | NUR ---
NURSE NOTES: Patient's discharged per Dr. Medina's order. Spoke to MAGI Dye from [facility] to give nurse report. [facility] pickup driver time at 1830.
--- NOTE | 2020-02-21 19:07 | NUR ---
NURSE NOTES: [facility] arrived, spoke to MAGI Chappell at bedside to give nurse report. Patient's going back to [facility].; already spoke with MAGI Dye at the SNF. Patient's in stable condition, no s/s of distress or SOB. Patient's going back to SNF with IV for last dose of Vancomycin tomorrow; discharge with [facility].
--- NOTE | 2020-02-21 19:18 | NUR ---
NURSE NOTES: Patient's off the floor. Charge nurse Aleena aware regarding the discharge.
--- NOTE | 2020-02-22 00:20 | Cardiology Progress Note ---
Subjective DATE OF SERVICE: Feb 21, 2020 S/P right pleural effusion thorocentesis yesterday. On vent support with low BP range. Monitor: sinus tachycardia with improved heart rates; no recurring AFlutter. Troponin in low range without significant progression Has fewer secretions from trach. Has decreasing diarrhea - CDiff toxin negative Venous Duplex negative for DVT CXR (02/14) still with bilateral infiltrates Sodium levels normalized - patient on IVF repl; potassium replaced yesterday. Objective Last 24 Hour Vital Signs Date Time Temp Pulse Resp B/P (MAP) Pulse Ox O2 Delivery O2 Flow Rate FiO2 02/21/20 16:58 98 17 30 02/21/20 16:00 109 02/21/20 16:00 30 02/21/20 16:00 97.9 110 17 98/55 (69) 100 02/21/20 16:00 Mechanical Ventilator 02/21/20 14:46 104 16 30 02/21/20 13:41 113 119/65 02/21/20 13:21 113 21 30 02/21/20 12:00 97 02/21/20 12:00 30 02/21/20 12:00 Mechanical Ventilator 02/21/20 12:00 97.9 97 17 119/65 (83) 100 02/21/20 11:27 100 16 30 02/21/20 09:09 98 16 30 02/21/20 08:14 98 151/72 02/21/20 08:00 Mechanical Ventilator 02/21/20 08:00 103 02/21/20 08:00 30 02/21/20 07:59 97.9 98 17 151/72 (98) 100 02/21/20 07:00 96 14 30 02/21/20 05:50 102 132/68 02/21/20 05:15 111 18 30 02/21/20 04:00 30 02/21/20 04:00 Mechanical Ventilator 02/21/20 04:00 Mechanical Ventilator 02/21/20 04:00 97.7 94 19 132/68 (89) 100 02/21/20 03:44 95 02/21/20 03:09 92 14 30 02/21/20 00:40 103 15 30 ROS: unchanged from my note of 02/09/20 HEENT: Mechanically Ventilated, Thick Trach secretions RHYTHM: ST LUNGS: bilateral rhonchi CARDIAC: regular rhythm, normal S1 and S2, rapid rate, gallop/S4 ABDOMEN: normal bowel sounds, non tender, soft, no organomegaly, G-Tube intact EXTREMITIES: non-tender, no calf tenderness, No edema Laboratory Tests Test 02/21/20 08:35 Sodium Level 139 MMOL/L (136-145) Potassium Level 3.1 MMOL/L (3.5-5.1) L Chloride Level 107 MMOL/L (98-107) Carbon Dioxide Level 25 MMOL/L (21-32) Anion Gap 7 mmol/L (5-15) Blood Urea Nitrogen 6 mg/dL (7-18) L Creatinine 0.5 MG/DL (0.55-1.30) L Estimat Glomerular Filtration Rate > 60 mL/min (>60) Glucose Level 141 MG/DL (74-106) H Calcium Level 7.8 MG/DL (8.5-10.1) L Magnesium Level 1.9 MG/DL (1.8-2.4) Microbiology Date/Time Source Procedure Growth Status 02/20/20 13:30 Body Fluid Gram Stain - Final Resulted 02/20/20 13:30 Body Fluid Body Fluid Culture - Preliminary NO GROWTH Resulted Assessment/Plan Assessment/Plan Severe sepsis Diarrhea with negative CDi Healthcare assoc polymicrobial PNA Polymicrobial UTI Respiratory failure with trach Sinus tachycardia Paroxysmal atrial flutter Acute myocardial ischemia with elevated troponin levels and possible NSTEMI Moderate protein calorie malnutrition Acute on chronic respiratory acidosis Sinus node disease Dehydration/hypernatremia Hypokalemia Pleural effusions - s/p right thorocentesis Ac/chronic diastolic CHF Vent support Replace fluid and electrolyte losses; free water replacement as needed. Resume maintenance diuretic dosing at SNF Maintain beta imngo and diltiazem at current dosing. DVT prophylaxis Nutritional support by GTUbe Monitor acid-base parameters and adjust vent settings accordingly. Discharge medication regimen reviewed and reconciled. Luis Felipe Sorto MD Feb 22, 2020 00:20
== END 2020-02-21 19:22 | DRG 720 ==
LOC: EDBD 05:54 → EDBEDREQ 06:07 → EMR 06:19 → EDBEDREQ 08:01 → 2W 08:40
PROC: 5A1955Z Respiratory Ventilation, Greater than 96 Consecutive Hours (ICD-10-PCS; principal; 2020-02-09)
PROC: 0W993ZZ Drainage of Right Pleural Cavity, Percutaneous Approach (ICD-10-PCS; 2020-02-20)
DX: A41.02 Sepsis due to Methicillin resistant Staphylococcus aureus (principal); R65.20 Severe sepsis without septic shock; N39.0 Urinary tract infection, site not specified; L89.529 Pressure ulcer of left ankle, unspecified stage; E44.0 Moderate protein-calorie malnutrition; R13.10 Dysphagia, unspecified; J96.11 Chronic respiratory failure with hypoxia; E87.1 Hypo-osmolality and hyponatremia; D64.9 Anemia, unspecified; Z20.828 Contact with and (suspected) exposure to other viral communicable diseases; Z93.0 Tracheostomy status; Z93.1 Gastrostomy status; B96.20 Unspecified Escherichia coli [E. coli] as the cause of diseases classified elsewhere; J15.6 Pneumonia due to other Gram-negative bacteria; L89.329 Pressure ulcer of left buttock, unspecified stage; L89.319 Pressure ulcer of right buttock, unspecified stage; I50.43 Acute on chronic combined systolic (congestive) and diastolic (congestive) heart failure; Z99.11 Dependence on respirator [ventilator] status; E87.8 Other disorders of electrolyte and fluid balance, not elsewhere classified; I25.9 Chronic ischemic heart disease, unspecified; R19.7 Diarrhea, unspecified; Z74.01 Bed confinement status; J90 Pleural effusion, not elsewhere classified; L30.9 Dermatitis, unspecified; I48.92 Unspecified atrial flutter; E87.0 Hyperosmolality and hypernatremia; E87.6 Hypokalemia
CPT/HCPCS: 36415; 36600; 71045; 71250; 76942; 80048; 80053; 80202; 81003; 82550; 82553; 82728; 82803; 83605; 83615; 83735; 83880; 84100; 84484; 84550; 85007; 85025; 85379; 85610; 85730; 86140; 87040; 87070; 87081; 87086; 87181; 87205; 87324; 88104; 93005; 93306; 93970; 94002; 94003; 94664; 96361; 96365; 96367; 96372; 99291; J7030; J8499; U0002

== ENCOUNTER 2020-03-04 09:33 | Inpatient (IN) | payer OTHER ==
[~2020-03-04] VITALS: Ht 170.2 cm; Wt 85.1 kg
[~2020-03-04 09:33] MED LIST: ACETAMINOP160 MG/5 M ORAL; BENADRYL25 M3 GT; CATAPRES0.1 MG GT; EPOGEN10000 UNIT SUBQ; FAMOTIDINE20 MG GT; FERROUS SU220 MG/51 GT; LEVOTHYROXINE75 MCG ORAL; METOPROLOL TART25 MG GT; NORCO 5-325 TA1 EAC1 GT; SYNTHROID25 MCG GT; UTI-STAT L3875 MG/31 PO; VITAMIN C500 M1 GT
--- NOTE | 2020-03-04 09:45 | Emergency Room Report ---
History of Present Illness General Chief Complaint: Abnormal Labs Source: Patient, Medical Record Present Illness HPI 54-year-old female with history of anemia sent by Dr. Medina due to symptomatic anemia. Routine blood labs taken yesterday showed a hemoglobin of 6.9. The patient's symptoms were gradual onset, severity was moderate, duration since 3 days. Quality: Weak Past medical history: Chronically trach. Nonverbal Past surgical history: Tracheostomy Smoking: Denies Alcohol use: Denies Drug use: Denies Review of systems: CONST: No fevers or chills, No night sweats PULMONARY: No productive cough, ++ shortness of breath CARDIAC: No chest pain, No palpitations GI: ++ vomiting, No diarrhea , No melena_or_BRBPR : No dysuria, No hematuria, No discharge NEURO: No new_focal_weakness_or_numbness, No confusion, No vision changes 14 point Review of Systems is otherwise negative except per HPI Physical Exam: GENERAL: Awake, chronically ill-appearing, no acute distress; spo2 100 FIO2 40 EYES: Pupils reactive. Conjunctiva clear. ENT: External nose and ear appear normal. Oropharynx clear. Head atraumatic. NECK: No thyromegaly. No midline tenderness. Trach in place, c/d/i, no discharge or bleeding. LUNGS: Normal respiratory effort. Clear to auscultation. No stridor. No rales. No wheezes. CARDIAC: Regular rate and rhythm. Normal radial pulses bilaterally. No significant pedal edema. ABDOMEN: Soft, nontender, and nondistended. No rebound/guarding. No hepatosplenomegaly. G-tube in place, epigastrium, c/d/i, no discharge or tenderness. MSK: Poor muscle tone, contractures with rigidity in extremities. Extremities without asymmetric deformity or swelling. NEUROLOGIC: Awake. Does not follow commands for motor and sensory exam. No truncal ataxia. GCS 2-4-2, protecting airway, intact gag reflex. Withdraws to pain in extremities, groans and opens eyes to sternal rub. SKIN: Warm and dry. Diffuse dermatitis. Negative Nikolsky No palpable crepitus - COORDINATION OF CARE Case was discussed with: Patient , Patient's Physician Any labs and imaging that were ordered were interpreted as part of the medical decision making: Medical Decision Making/Plan: Differential diagnosis includes sepsis / severe sepsis , cellulitis UTI, pneumonia , viral syndrome, gastroenteritis, emergent abdominal infection, among others. Vitals show tachycardia. Otherwise stable blood pressure. She is afebrile.. Patient abdomen is benign, no evidence of emergent abdominal condition. UA shows UTI CXR shows multifocal pneumonia. Tracheostomy is in place. No pneumothorax. Sepsis bundle initiated on arrival. Blood cultures, lactate drawn. Lactate was not elevated, patient was not given 30 cc/kg IV fluids by bolus because she refused. Empiric antibiotics were started. Labs show hemoglobin of 7.3, normocytic. Iron deficiency is one etiology, versus chronic disease. She appears hypovolemic on examination and is tachycardic. She was given gentle fluids. I anticipate that the hemoglobin will drop to less than 7 when she is fluid resuscitated, therefore 1 PRBC was given. Hemoccult is negative. Patient will be admitted to the hospital for further care and evaluation. I spoke with Dr. Medina , and reviewed the patients presentation, workup, results, and treatment. They will admit the patient for further care and evaluation, and assume care of the patient at this time. - CRITICAL CARE STATEMENT - Critical care performed 55 minutes) Time is exclusive of separately billable procedures. Time includes: direct patient care, patient reassessment, coordination of patient care, review of patient's medical records, medical consultation, family consultation regarding treatment decisions and documentation of patient care. Organ systems at risk: Cardiac / Circulatory /pulmonary Allergies: Coded Allergies: No Known Allergies (Unverified , 02/09/20) COVID-19 Screening Contact w/high risk pt: No Experienced COVID-19 symptoms?: No COVID-19 Testing performed SMELTER CHARGER: No Nursing Documentation-PMH Hx Hypertension: Yes Hx COPD: Yes - pneumonia Hx Diabetes: Yes Physical Exam Vital Signs Date Time Temp Pulse Resp B/P (MAP) Pulse Ox O2 Delivery O2 Flow Rate FiO2 03/04/20 09:27 98.8 108 20 146/100 (115) 99 Mechanical Ventilator 5.0 Sp02 EP Interpretation: reviewed, abnormal Procedures Critical Care Time Critical Care Time Critical Care Statement Organ systems at risk include: [cardiac / circulatory] Critical care performed for 45 minutes. Time is exclusive of separately billable procedures. Time includes: direct patient care, continuous monitoring and multiple patient reassessment, coordination of patient care, review of patient's medical records , medical consultation, family consultation regarding treatment decisions and documentation of patient care. Blood transfusion was initiated from the emergency department secondary to critically low hemoglobin. Medical Decision Making Diagnostic Impression: Primary Impression: Anemia Additional Impressions: Multifocal pneumonia Tracheostomy care G tube feedings Dermatitis Hypoxia Generalized weakness EKG Diagnostic Results JEFFRY Jung 12-lead EKG (interpreted by ) Time: 108 Indication: Sinus tachycardia Tracing visualized and Interpreted by me. Rhythm: Rhythm analysis Rate: 108 bpm QTc: 399 Morphology: No_significant_ST_elevations_or_depressions, No STEMI Impression: Sinus tachycardia, low QRS voltage. Rhythm Strip Diag. Results Rhythm Strip Time: 11:17 EP Interpretation: yes Rate: 105 Rhythm: no PVC's, no ectopy Chest X-Ray Diagnostic Results Chest X-Ray Diagnostic Results : JEFFRY Jung Chest X-Ray: Views: 1 view(s) Indication: Shortness of breath Findings: Normal heart size. Mediastinum normal. No infiltrate. Impression: Focal pneumonia, trach in place. No pneumothorax The X-ray(s) were independently viewed and interpreted contemporaneously Electronically signed by Colleen burkett DO Reevaluation Time: 11:18 Last Vital Signs Date Time Temp Pulse Resp B/P (MAP) Pulse Ox O2 Delivery O2 Flow Rate FiO2 03/04/20 09:27 98.8 108 20 146/100 (115) 99 Mechanical Ventilator 5.0 Status: improved Disposition: ADMITTED INPATIENT Admit Decision Time: 11:00 Condition: Stable Colleen Cai D.O. Mar 04, 2020 09:45
[2020-03-04 09:55] VITALS: BP 119/79
[2020-03-04] MEDS ORDERED: Vancomycin 750 MG in NS 275 ML IVPB ONE (10:00)
[2020-03-04 10:13] LABS: HEMATOCRIT 23.7 % (37.0-47.0); HEMOGLOBIN 7.3 G/DL (12.0-16.0); MEAN CORPUSCULAR VOLUME 93 FL (80-99); PLATELET COUNT 175 K/UL (150-450); RED BLOOD COUNT 2.55 M/UL (4.20-5.40); RED CELL DISTRIBUTION WIDTH 20.2 % (11.6-14.8); WHITE BLOOD COUNT 4.9 K/UL (4.8-10.8)
[2020-03-04 10:14] LABS: APPEARANCE,URINE CLEAR; BILIRUBIN, URINE NEGATIVE (NEGATIVE); GLUCOSE, URINE (UA) NEGATIVE (NEGATIVE); KETONES,URINE 1+ (NEGATIVE); LEUKOCYTE ESTERASE ,URINE 3+ (NEGATIVE); NITRITE,URINE POSITIVE (NEGATIVE); PH,URINE 7 (4.5-8.0); PROTEIN,URINE 1+ (NEGATIVE); UROBILINOGEN,URINE NORMAL MG/DL (0.0-1.0)
[2020-03-04 10:20] LABS: ANION GAP 3 mmol/L (5-15); BLOOD UREA NITROGEN 16 mg/dL (7-18); CALCIUM 7.9 MG/DL (8.5-10.1); CARBON DIOXIDE 30 MMOL/L (21-32); CHLORIDE 104 MMOL/L (98-107); CREATININE 0.4 MG/DL (0.55-1.30); POTASSIUM 4.1 MMOL/L (3.5-5.1); SODIUM 137 MMOL/L (136-145)
[2020-03-04 10:21] LABS: COLOR,URINE YELLOW; INR 1.2 (0.9-1.1)
[2020-03-04 10:24] LABS: ALANINE AMINOTRANSFERASE 15 U/L (12-78); ALBUMIN 1.4 G/DL (3.4-5.0); ALBUMIN/GLOBULIN RATIO 0.2 (1.0-2.7); ALKALINE PHOSPHATASE 239 U/L (46-116); ASPARTATE AMINO TRANSFERASE 51 U/L (15-37); BILIRUBIN,TOTAL 0.3 MG/DL (0.2-1.0)
[2020-03-04 10:25] LABS: % IRON SATURATION 19 % (15-50); IRON 21 ug/dL (50-175); TOTAL IRON BINDING CAPACITY 111 ug/dL (250-450)
[2020-03-04] MEDS: cefTRIAXone 1 GM in NS 55 ML IVPB ONE (10:57)
[2020-03-04] MEDS ORDERED: MULTI-DELYN237 ML GT (11:03)
[2020-03-04] MEDS ORDERED: LANSOPRAZOLE30 M2 GT (11:03)
[2020-03-04] MEDS ORDERED: PRO-AMATINE2.5 MG GT (11:03)
[2020-03-04] MEDS ORDERED: LOPERAMIDE2 MG GT (11:03)
[2020-03-04] MEDS ORDERED: ZINC SULFATE220 M2 GT (11:03)
[2020-03-04] MEDS ORDERED: DILTIAZEM HCL30 MG GT (11:03)
[2020-03-04] MEDS ORDERED: PRO-STAT LIQUID30 ML GT (11:03)
[2020-03-04 11:42] VITALS: BP 112/75
--- NOTE | 2020-03-04 15:13 | Diagnostic Imaging Report ---
Indication: Cough Technique: One view of the chest Comparison: 02/20/2020 Findings: Bilateral interstitial and airspace opacities are again demonstrated. Tracheostomy remains. The heart size is normal. There is a left pleural effusion again demonstrated. Impression: Bilateral interstitial and airspace disease, unchanged since prior exam of 02/20/2020
[2020-03-04 16:00] VITALS: BP 116/55
[2020-03-04] MEDS ORDERED: Lomotil 2.5mg tab GT PRN (16:00)
[2020-03-04] MEDS ORDERED: DiphenhydrAMINE 25mg/10ml Elixir GT PRN (16:00)
[2020-03-04] MEDS ORDERED: Acetaminophen 650mg/20.3ml GT PRN (16:00)
[2020-03-04 19:59] VITALS: BP 124/90
[2020-03-04] MEDS: Metoprolol Tartrate 50mg tab GT SCH (20:03)
[2020-03-04] MEDS: dilTIAZem HCl 30mg tab GT SCH (21:14)
[2020-03-05] VITALS: BP 130/68
[2020-03-05 03:52] VITALS: BP 113/70
[2020-03-05] MEDS: dilTIAZem HCl 30mg tab GT SCH ×3 (05:32→21:58)
[2020-03-05 08:00] VITALS: BP 114/67
[2020-03-05] MEDS: Metoprolol Tartrate 50mg tab GT SCH ×2 (09:00→20:05)
[2020-03-05] MEDS: Zinc Sulfate 220mg GT SCH (09:19)
[2020-03-05] MEDS: cefTRIAXone 1 GM in D5W 55 ML IVPB SCH (09:21)
[2020-03-05] MEDS: Multivitamins W/Minerals 15 ML UDC GT SCH (09:21)
[2020-03-05 09:29] LABS: HEMATOCRIT 32.1 % (37.0-47.0); HEMOGLOBIN 10.2 G/DL (12.0-16.0); MEAN CORPUSCULAR VOLUME 91 FL (80-99); PLATELET COUNT 147 K/UL (150-450); RED BLOOD COUNT 3.54 M/UL (4.20-5.40); RED CELL DISTRIBUTION WIDTH 18.7 % (11.6-14.8); WHITE BLOOD COUNT 3.4 K/UL (4.8-10.8)
[2020-03-05 09:50] LABS: ANION GAP 4 mmol/L (5-15); BLOOD UREA NITROGEN 14 mg/dL (7-18); CALCIUM 7.6 MG/DL (8.5-10.1); CARBON DIOXIDE 30 MMOL/L (21-32); CHLORIDE 106 MMOL/L (98-107); CREATININE 0.4 MG/DL (0.55-1.30); POTASSIUM 3.7 MMOL/L (3.5-5.1); SODIUM 140 MMOL/L (136-145)
[2020-03-05 12:00] VITALS: BP 113/78
--- NOTE | 2020-03-05 15:03 | Consultation ---
History of Present Illness General Date patient seen: Mar 05, 2020 Chief Complaint: Abnormal Labs Present Illness HPI This is a 54-year-old female well-known to me from recent admission who was discharged safely and in care facility at which time was recently developed worsening anemia on routine blood work. Admitted for further care and management work-up and evaluation. On admission continues to have abnormal labs multiple decubitus ulcers malnutrition surgery called to eval and assist with care. Patient seen, patient evaluated, chart reviewed. Care management reinitiated during admission. Patient limited in history and cooperation with exam Allergies: Coded Allergies: No Known Allergies (Unverified , 02/09/20) Medication History Scheduled Amino Acids/Protein Hydrolys (Pro-Stat Liquid), 30 ML GT TWICE A DAY, (Reported) Ascorbic Acid* (Vitamin C*), 500 MG GT DAILY, (Reported) Cran/Vitc/Mannose/Inulin/Brom (Uti-Stat Liquid), 30 ML PO DAILY, (Reported) Epoetin Liam (Epogen), 10,000 UNIT SUBQ 3XW, (Reported) Famotidine* (Pepcid 20mg tablet*), 20 MG GT TWICE A DAY, (Reported) Ferrous Sulfate (Ferrous Sulfate), 7.5 ML GT THREE TIMES A DAY, (Reported) Levothyroxine Sodium* (Levothyroxine Sodium*), 75 MCG ORAL DAILY, (Reported) Metoprolol Tartrate* (Metoprolol Tartrate*), 12.5 MG GT EVERY 12 HOURS, ( Reported) Midodrine (Midodrine HCl), 2.5 MG GT THREE TIMES A DAY, (Reported) Multivitamin Liquid* (Multi-Delyn*), 15 ML GT DAILY, (Reported) Zinc Sulfate (Zinc Sulfate), 220 MG GT DAILY, (Reported) Scheduled PRN Acetaminophen 160MG/5ML* (Acetaminophen*), 20 ML ORAL Q4HR PRN for For Pain, ( Reported) Clonidine Hcl* (Catapres*), 0.1 MG GT EVERY 6 HOURS PRN for For High Blood Pressure, (Reported) Diphenhydramine HCl (Benadryl), 25 MG GT for Itching, (Reported) Hydrocodone Bit/Acetaminophen 5-325* ([place] 5-325 Tablet*), 1 TAB GT for Pain from Changing Dressing, (Reported) Miscellaneous Medications Diltiazem Hcl (Diltiazem Hcl), 30 MG GT, (Reported) Lansoprazole (Lansoprazole), 30 MG GT, (Reported) Loperamide Hcl (Loperamide), 2 MG GT, (Reported) Patient History Limited by: medical condition History Provided By: Medical Record, PMD Healthcare decision maker Resuscitation status Advanced Directive on File Past Medical/Surgical History Past Medical/Surgical History: (1) Pneumonia (2) Decubitus skin ulcer (3) Generalized weakness (4) Dermatitis (5) Hypoxia (6) Tracheostomy care (7) G tube feedings (8) Multifocal pneumonia (9) Anemia (10) Symptomatic anemia Review of Systems All Other Systems: negative except mentioned in HPI Physical Exam General Appearance: no apparent distress, alert Lines, tubes and drains: peripheral HEENT: mucous membranes moist Neck: supple, normal inspection, other Respiratory/Chest: no respiratory distress, no accessory muscle use, other Abdomen: soft, no organomegaly, no mass, feeding tube Genitourinary/Rectal: heme negative stool Extremities: normal inspection, no calf tenderness, slow capillary refill Skin Exam: warm/dry Neurologic: alert Last 24 Hour Vital Signs Date Time Temp Pulse Resp B/P (MAP) Pulse Ox O2 Delivery O2 Flow Rate FiO2 03/05/20 12:39 Mechanical Ventilator 03/05/20 12:20 103 14 40 03/05/20 12:00 98.4 97 20 113/78 (90) 100 03/05/20 12:00 40 03/05/20 11:31 94 03/05/20 08:00 83 03/05/20 08:00 97.9 92 19 114/67 (83) 100 03/05/20 08:00 40 03/05/20 08:00 Mechanical Ventilator 03/05/20 07:37 87 14 40 03/05/20 05:32 76 124/66 03/05/20 04:00 40 03/05/20 04:00 Mechanical Ventilator 03/05/20 03:52 98.0 91 18 113/70 (84) 100 03/05/20 03:30 86 03/05/20 02:43 85 14 40 03/05/20 00:00 97.9 88 20 130/68 (88) 100 03/05/20 00:00 40 03/05/20 00:00 Mechanical Ventilator 03/04/20 23:19 88 14 40 03/04/20 21:14 95 122/78 03/04/20 20:28 97 03/04/20 20:03 100 124/90 03/04/20 20:00 40 03/04/20 19:59 97.8 100 20 124/90 (101) 100 03/04/20 18:51 96 14 40 03/04/20 16:23 Mechanical Ventilator 03/04/20 16:00 97.7 94 20 116/55 (75) 100 03/04/20 16:00 40 03/04/20 15:53 80 Intake and Output 03/04/20 03/05/20 19:00 07:00 Intake Total 720 ml 650 ml Output Total 301 ml 550 ml Balance 419 ml 100 ml Intake Free Water 20 ml 50 ml IV Total 330 ml Tube Feeding 120 ml 600 ml Blood Product 250 ml Output Urine Total 301 ml 550 ml # Bowel Movements 5 5 Laboratory Tests Test 03/05/20 09:00 White Blood Count 3.4 K/UL (4.8-10.8) L Red Blood Count 3.54 M/UL (4.20-5.40) L Hemoglobin 10.2 G/DL (12.0-16.0) #L Hematocrit 32.1 % (37.0-47.0) #L Mean Corpuscular Volume 91 FL (80-99) Mean Corpuscular Hemoglobin 28.8 PG (27.0-31.0) Mean Corpuscular Hemoglobin Concent 31.8 G/DL (32.0-36.0) L Red Cell Distribution Width 18.7 % (11.6-14.8) H Platelet Count 147 K/UL (150-450) L Mean Platelet Volume 6.1 FL (6.5-10.1) L Neutrophils (%) (Auto) % (45.0-75.0) Lymphocytes (%) (Auto) % (20.0-45.0) Monocytes (%) (Auto) % (1.0-10.0) Eosinophils (%) (Auto) % (0.0-3.0) Basophils (%) (Auto) % (0.0-2.0) Differential Total Cells Counted 100 Neutrophils % (Manual) 74 % (45-75) Lymphocytes % (Manual) 11 % (20-45) L Monocytes % (Manual) 6 % (1-10) Eosinophils % (Manual) 9 % (0-3) H Basophils % (Manual) 0 % (0-2) Band Neutrophils 0 % (0-8) Platelet Estimate Decreased L Platelet Morphology Normal Anisocytosis 1+ Sodium Level 140 MMOL/L (136-145) Potassium Level 3.7 MMOL/L (3.5-5.1) Chloride Level 106 MMOL/L (98-107) Carbon Dioxide Level 30 MMOL/L (21-32) Anion Gap 4 mmol/L (5-15) L Blood Urea Nitrogen 14 mg/dL (7-18) Creatinine 0.4 MG/DL (0.55-1.30) L Estimat Glomerular Filtration Rate > 60 mL/min (>60) Glucose Level 97 MG/DL (74-106) Calcium Level 7.6 MG/DL (8.5-10.1) L Height (Feet): 5 Height (Inches): 7.00 Weight (Pounds): 140 Medications Current Medications Medications (Trade) Dose Ordered Sig/Lucy Route PRN Reason Start Time Stop Time Status Last Admin Dose Admin Acetaminophen (Tylenol) 650 mg Q6H PRN GT Mild Pain (Pain Scale 1-3) 03/04/20 16:00 04/03/20 15:59 Ceftriaxone Sodium 1 gm/ Dextrose 55 ml @ 110 mls/hr Q24H IVPB 03/05/20 09:00 03/12/20 08:59 03/05/20 09:21 Diltiazem HCl (Cardizem Tab) 30 mg EVERY 8 HOURS GT 03/04/20 22:00 04/03/20 21:59 03/05/20 05:32 Diphenhydramine HCl (Benadryl) 25 mg Q6H PRN GT Itching 03/04/20 16:00 04/03/20 15:59 Diphenoxylate HCl/ Atropine (Lomotil) 2.5 mg Q6H PRN GT Diarrhea 03/04/20 16:00 04/03/20 15:59 Levothyroxine Sodium (Synthroid) 75 mcg DAILY@0630 GT 03/05/20 06:30 04/04/20 06:29 03/05/20 05:32 Loperamide HCl (Imodium) 2 mg DAILYPRN PRN ORAL Diarrhea 03/04/20 16:00 04/03/20 15:59 9/9/20 02:45 Metoprolol Tartrate (Lopressor) 50 mg Q12HR GT 03/04/20 21:00 06/02/20 20:59 03/04/20 20:03 Multivitamins (Multivitamins W/ Minerals 15ml Liquid) 15 ml DAILY GT 03/05/20 09:00 04/04/20 08:59 03/05/20 09:21 Zinc Sulfate (Zinc Sulfate) 220 mg DAILY GT 03/05/20 09:00 06/03/20 08:59 03/05/20 09:19 Assessment/Plan Problem List: (1) Generalized weakness ICD Codes: R53.1 - Weakness SNOMED: 71842611, 355959738, 395347287 (2) Dermatitis ICD Codes: L30.9 - Dermatitis, unspecified SNOMED: 955851387, 797858261, 656718152 (3) Hypoxia ICD Codes: R09.02 - Hypoxemia SNOMED: 634085495, 995978747, 848178132 (4) Tracheostomy care ICD Codes: Z43.0 - Encounter for attention to tracheostomy SNOMED: 703479702, 712598325, 830012637 (5) G tube feedings Assessment & Plan: DAILY ESTIMATED NEEDS: Needs based on Wound, critical care, DM 54kg abw 25-30 kcals/kg 8586-5467 total kcals 1.25-2 g protein/kg 68-108 g total protein 25-30 mL/kg 2998-7911 total fluid mLs NUTRITION DIAGNOSIS: Increased kcal and pro needs r/t wound healing as evidenced by pt w/ h/o multiple full thickness wounds, pending WC eval, pt is bedbound, trach and peg dep. CURRENT TF:Vital AF 1.2 @60ml/hr x20 hrs ENTERAL NUTRITION RECOMMENDATIONS: Glucerna 1.2 @60ml/hr x20 hrs to provide 1200ml, 1440 kcal, 72g pro, 966ml free H2O - Rec carb control formula, Glucerna 1.2. - TF meets 100% est needs at goal - Flush per MD. HOB over 30 degrees ADDITIONAL RECOMMENDATIONS: 1) Wound care: add GT BID, f/up w/ WC eval 2) Per SNF: 61 inches (5'1") and last wt 162 lbs, 73.6kg Maintain calibrated bed scale wts if adding P200 mattress 3) Rec NISS + accuchecks for improved BG ICD Codes: Z93.1 - Gastrostomy status SNOMED: 782262010, 520945484, 599084915 (6) Multifocal pneumonia ICD Codes: J18.9 - Pneumonia, unspecified organism SNOMED: 938062438, 402897362, 955336354 (7) Anemia ICD Codes: D64.9 - Anemia, unspecified SNOMED: 223795322 (8) Decubitus skin ulcer Assessment & Plan: Pt presented on admission with Pressure Injuries, Tracheostomy,Alopecia, Generalized Hypopigmented Skin plaques. Few plaques noted to be open lesions but are pink and dry. Skin assessed under collar of trach and no areas of skin breakdown noted. Full thickness Pressure injury noted to R Buttocks(L)5.7cm x (W)1.7cm x (D) 0.3cm. Base of wound is 90% beefy-red,10% slough. Borders are macerated . surrounding dry skin with hypopigmented plaques. Full thickness Pressure injury L Buttocks(L)4.6cm x (W)4.5cm. Base of wound has clusters wounds with intertwining bridges. Wounds have mixed slough and jack appearances. Small amt serous exudate noted. Surrounding dry hypopigmented skin plaques. Proximally and in close proximity skin is denuded. Small pustule with surrounding erythema noted L Hallux(L)0.5cm x (W)0.6cm. NO changes in skin temp periwound. An area of hyperpigmentation from previous wound noted to medial/posterior R Heel. L Heel is otherwise boggy with non-blanching erythema. Reabsorbed DTPI L Heel(L)2.2cm x (W)2cm. Dry brown eschar at base of wound. NO erythema or fluctuance periwound. Unstageable Pressure injury L lateral Malleolus(L)0.7cm x (W)0.9cm. Base of wound has 100% slough.edges dry and adherent to base of wound. No erythema, induration,or fluctuance periwound. Tx.Plan: Cleanse wounds R and L Buttocks with Saline. Apply Therahoney to wounds. Apply Moisture Barrier Paste Periwound. Cover with Optifoam drsg Daily and prn. Apply Betadine to wound R Hallux. Cover with Optifoam drsg every 3 days and prn. Apply Betadine to L lateral Malleolus. Cover with Optifoam drsg. Change every 3 days and prn. Apply Cavilon Skin Barrier to both heels. Cover each heel with Optifoam drsg. Change every 7 days and prn. Apply moisture barrier paste to R and L Buttocks. Cover with Optiform dressing Q3 days and prn. Apply Cavilon skin barrier both heels cover each with Optiform dressing change Q 7 days and prn. Apply Phytoplex antifungal lotion for itching three times/day Reposition at least every 2hours or as tolerated. Off-load heels with pillow. APM/ELIDIA Mattress overlay. ICD Codes: L89.90 - Pressure ulcer of unspecified site, unspecified stage SNOMED: 132678337 (9) Pneumonia Assessment & Plan: Bilateral interstitial and airspace opacities are again demonstrated. Tracheostomy remains. The heart size is normal. There is a left pleural effusion again demonstrated. ICD Codes: J18.9 - Pneumonia, unspecified organism SNOMED: 459757452 (10) Symptomatic anemia ICD Codes: D64.9 - Anemia, unspecified SNOMED: 391354130 Zia Chung Mar 05, 2020 15:03
[2020-03-05 16:00] VITALS: BP 120/76
--- NOTE | 2020-03-05 17:21 | Diagnostic Imaging Report ---
Indication: Bilateral lower extremity edema Technique: Grayscale and duplex images of the bilateral lower extremity veins Comparison: 2019 Findings: Bilaterally, grayscale and duplex images demonstrate no evidence of intraluminal thrombus. Normal phasic Doppler waveforms, demonstrating normal augmentation response and no evidence of valvular insufficiency. Greater saphenous vein(s) and tibial veins are patent. Normal compressibility. No significant change Impression: Negative for evidence of lower extremity deep venous thrombosis bilaterally
--- NOTE | 2020-03-05 17:59 | History & Physical ---
History and Physical History & Physicial HISTORY OF PRESENT ILLNESS: This is a 54-year-old chronically ill patient with history of breast cancer status post chemotherapy and multiple other medical problems. The patient transferred for worsening anemia. NO evidence of GIB noted. The patient now admitted for further care and management and further evaluation. PAST MEDICAL HISTORY: Notable for chronic respiratory failure, chronic dermatitis, history of breast cancer, history of anemia, history of tracheostomy, and history of G-tube. MEDICATIONS: Reviewed. ALLERGIES: Reviewed. REVIEW OF SYSTEMS: Difficult to obtain. PHYSICAL EXAMINATION: GENERAL: A well-developed female, chronically ill-appearing. VITAL SIGNS: reviewed LUNGS: With scattered rhonchi. CARDIAC: Tachycardic. ABDOMEN: Soft. G-tube in place. EXTREMITIES: No cyanosis, clubbing, or edema. LABORATORY DATA: Labs Test 03/04/20 09:30 03/04/20 09:42 03/05/20 09:00 White Blood Count 4.9 K/UL (4.8-10.8) 3.4 K/UL (4.8-10.8) Red Blood Count 2.55 M/UL (4.20-5.40) 3.54 M/UL (4.20-5.40) Hemoglobin 7.3 G/DL (12.0-16.0) 10.2 G/DL (12.0-16.0) Hematocrit 23.7 % (37.0-47.0) 32.1 % (37.0-47.0) Mean Corpuscular Volume 93 FL (80-99) 91 FL (80-99) Mean Corpuscular Hemoglobin 28.7 PG (27.0-31.0) 28.8 PG (27.0-31.0) Mean Corpuscular Hemoglobin Concent 30.9 G/DL (32.0-36.0) 31.8 G/DL (32.0-36.0) Red Cell Distribution Width 20.2 % (11.6-14.8) 18.7 % (11.6-14.8) Platelet Count 175 K/UL (150-450) 147 K/UL (150-450) Mean Platelet Volume 6.2 FL (6.5-10.1) 6.1 FL (6.5-10.1) Neutrophils (%) (Auto) % (45.0-75.0) % (45.0-75.0) Lymphocytes (%) (Auto) % (20.0-45.0) % (20.0-45.0) Monocytes (%) (Auto) % (1.0-10.0) % (1.0-10.0) Eosinophils (%) (Auto) % (0.0-3.0) % (0.0-3.0) Basophils (%) (Auto) % (0.0-2.0) % (0.0-2.0) Differential Total Cells Counted 100 100 Neutrophils % (Manual) 72 % (45-75) 74 % (45-75) Lymphocytes % (Manual) 13 % (20-45) 11 % (20-45) Monocytes % (Manual) 9 % (1-10) 6 % (1-10) Eosinophils % (Manual) 5 % (0-3) 9 % (0-3) Basophils % (Manual) 1 % (0-2) 0 % (0-2) Band Neutrophils 0 % (0-8) 0 % (0-8) Platelet Estimate Adequate Decreased Platelet Morphology Normal Normal Polychromasia 1+ Hypochromasia 2+ Anisocytosis 2+ 1+ Prothrombin Time 12.7 SEC (9.30-11.50) Prothromb Time International Ratio 1.2 (0.9-1.1) Activated Partial Thromboplast Time 31 SEC (23-33) Urine Color Yellow Urine Appearance Clear Urine pH 7 (4.5-8.0) Urine Specific Matthews 1.005 (1.005-1.035) Urine Protein 1+ (NEGATIVE) Urine Glucose (UA) Negative (NEGATIVE) Urine Ketones 1+ (NEGATIVE) Urine Blood 1+ (NEGATIVE) Urine Nitrite Positive (NEGATIVE) Urine Bilirubin Negative (NEGATIVE) Urine Urobilinogen Normal MG/DL (0.0-1.0) Urine Leukocyte Esterase 3+ (NEGATIVE) Urine RBC 0-2 /HPF (0 - 2) Urine WBC 5-10 /HPF (0 - 2) Urine Squamous Epithelial Cells Few /LPF (NONE/OCC) Urine Triple Phosphate Crystals Few /LPF (NONE) Urine Bacteria Moderate /HPF (NONE) Iron Level 21 ug/dL (50-175) Total Iron Binding Capacity 111 ug/dL (250-450) Percent Iron Saturation 19 % (15-50) Unsaturated Iron Binding 90 ug/dL (112-346) Troponin I 0.004 ng/mL (0.000-0.056) Sodium Level 137 MMOL/L (136-145) 140 MMOL/L (136-145) Potassium Level 4.1 MMOL/L (3.5-5.1) 3.7 MMOL/L (3.5-5.1) Chloride Level 104 MMOL/L (98-107) 106 MMOL/L (98-107) Carbon Dioxide Level 30 MMOL/L (21-32) 30 MMOL/L (21-32) Anion Gap 3 mmol/L (5-15) 4 mmol/L (5-15) Blood Urea Nitrogen 16 mg/dL (7-18) 14 mg/dL (7-18) Creatinine 0.4 MG/DL (0.55-1.30) 0.4 MG/DL (0.55-1.30) Estimat Glomerular Filtration Rate > 60 mL/min (>60) > 60 mL/min (>60) Glucose Level 85 MG/DL (74-106) 97 MG/DL (74-106) Calcium Level 7.9 MG/DL (8.5-10.1) 7.6 MG/DL (8.5-10.1) Total Bilirubin 0.3 MG/DL (0.2-1.0) Aspartate Amino Transf (AST/SGOT) 51 U/L (15-37) Alanine Aminotransferase (ALT/SGPT) 15 U/L (12-78) Alkaline Phosphatase 239 U/L (46-116) Total Protein 7.4 G/DL (6.4-8.2) Albumin 1.4 G/DL (3.4-5.0) Globulin 6.0 g/dL Albumin/Globulin Ratio 0.2 (1.0-2.7) Lipase 183 U/L (73-393) IMPRESSION: 1. Anemia 2. possible UTI 3. H/o sepsis. 4. Chronic dermatitis 5. Chronic respiratory failure. 6. Hyponatremia. PLAN transfuse monitor HH conservative management check cultures dc to snf if stable and vital stable impression, plan, and exam edited and reviewed in detail care discussed with Stevenson Emerson MD Mar 05, 2020 17:59
[2020-03-05 20:00] VITALS: BP 133/72
[2020-03-06] VITALS: BP 130/90
[2020-03-06 04:00] VITALS: BP 115/72
[2020-03-06] MEDS: dilTIAZem HCl 30mg tab GT SCH ×2 (05:33→14:00)
[2020-03-06 07:35] LABS: INR 1.1 (0.9-1.1)
[2020-03-06 07:46] LABS: HEMOGLOBIN 10.3 G/DL (12.0-16.0); MEAN CORPUSCULAR VOLUME 91 FL (80-99); PLATELET COUNT 136 K/UL (150-450); RED BLOOD COUNT 3.63 M/UL (4.20-5.40); RED CELL DISTRIBUTION WIDTH 18.9 % (11.6-14.8)
--- NOTE | 2020-03-06 07:52 | General Progress Note ---
Assessment/Plan Assessment/Plan: IMPRESSION: 1. Anemia 2. possible UTI 3. H/o sepsis. 4. Chronic dermatitis 5. Chronic respiratory failure. 6. Hyponatremia. PLAN transfused monitor HH- stable conservative management check cultures- negative so far dc to snf today impression, plan, and exam edited and reviewed in detail care discussed with RN Subjective Allergies: Coded Allergies: No Known Allergies (Unverified , 02/09/20) Subjective no distress overnight overall stable Objective Last 24 Hour Vital Signs Date Time Temp Pulse Resp B/P (MAP) Pulse Ox O2 Delivery O2 Flow Rate FiO2 03/06/20 07:13 88 14 40 03/06/20 05:33 93 113/67 03/06/20 04:00 111 03/06/20 04:00 40 03/06/20 04:00 98.1 105 20 115/72 (86) 100 03/06/20 04:00 Mechanical Ventilator 03/06/20 03:20 88 16 40 03/06/20 00:00 102 03/06/20 00:00 98.4 104 18 130/90 (103) 100 03/06/20 00:00 40 03/06/20 00:00 Mechanical Ventilator 03/05/20 23:19 99 18 40 03/05/20 21:58 100 125/96 03/05/20 20:05 103 133/72 03/05/20 20:00 40 03/05/20 20:00 Mechanical Ventilator 03/05/20 20:00 96.8 100 19 133/72 (92) 98 03/05/20 20:00 113 03/05/20 19:05 103 14 40 03/05/20 16:00 98.1 102 20 120/76 (91) 100 03/05/20 16:00 40 03/05/20 16:00 112 03/05/20 16:00 Mechanical Ventilator 03/05/20 14:50 105 17 40 03/05/20 14:00 105 113/78 03/05/20 12:39 Mechanical Ventilator 03/05/20 12:20 103 14 40 03/05/20 12:00 98.4 97 20 113/78 (90) 100 03/05/20 12:00 40 03/05/20 11:31 94 03/05/20 08:00 83 03/05/20 08:00 97.9 92 19 114/67 (83) 100 03/05/20 08:00 40 03/05/20 08:00 Mechanical Ventilator Intake and Output 03/05/20 03/06/20 19:00 07:00 Intake Total 660 ml 480 ml Output Total 300 ml 300 ml Balance 360 ml 180 ml Intake Free Water 60 ml Tube Feeding 600 ml 480 ml Output Urine Total 300 ml 300 ml # Bowel Movements 4 1 Laboratory Tests 03/05/20 09:00: White Blood Count 3.4L, Red Blood Count 3.54L, Hemoglobin 10.2#L, Hematocrit 32.1#L, Mean Corpuscular Volume 91, Mean Corpuscular Hemoglobin 28.8, Mean Corpuscular Hemoglobin Concent 31.8L, Red Cell Distribution Width 18.7H, Platelet Count 147L, Mean Platelet Volume 6.1L, Neutrophils (%) (Auto) , Lymphocytes (%) (Auto) , Monocytes (%) (Auto) , Eosinophils (%) (Auto) , Basophils (%) (Auto) , Differential Total Cells Counted 100, Neutrophils % ( Manual) 74, Lymphocytes % (Manual) 11L, Monocytes % (Manual) 6, Eosinophils % ( Manual) 9H, Basophils % (Manual) 0, Band Neutrophils 0, Platelet Estimate DecreasedL, Platelet Morphology Normal, Anisocytosis 1+, Sodium Level 140, Potassium Level 3.7, Chloride Level 106, Carbon Dioxide Level 30, Anion Gap 4L, Blood Urea Nitrogen 14, Creatinine 0.4L, Estimat Glomerular Filtration Rate > 60 , Glucose Level 97, Calcium Level 7.6L 03/06/20 06:36: White Blood Count 4.0L, Red Blood Count 3.63L, Hemoglobin 10.3L, Hematocrit 33.0L, Mean Corpuscular Volume 91, Mean Corpuscular Hemoglobin 28.5, Mean Corpuscular Hemoglobin Concent 31.4L, Red Cell Distribution Width 18.9H, Platelet Count 136L, Mean Platelet Volume 6.4L, Neutrophils (%) (Auto) , Lymphocytes (%) (Auto) , Monocytes (%) (Auto) , Eosinophils (%) (Auto) , Basophils (%) (Auto) , Neutrophils % (Manual) [Pending], Lymphocytes % (Manual) [Pending], Platelet Estimate [Pending], Platelet Morphology [Pending], Sodium Level [Pending], Potassium Level [Pending], Chloride Level [Pending], Carbon Dioxide Level [Pending], Blood Urea Nitrogen [Pending], Creatinine [Pending], Estimat Glomerular Filtration Rate [Pending], Glucose Level [Pending], Calcium Level [Pending], Erythrocyte Sedimentation Rate [Pending], Prothrombin Time 12.4H, Prothromb Time International Ratio 1.1, Activated Partial Thromboplast Time 30, Total Bilirubin [Pending], Aspartate Amino Transf (AST/SGOT) [Pending] , Alanine Aminotransferase (ALT/SGPT) [Pending], Alkaline Phosphatase [Pending] , C-Reactive Protein, Quantitative [Pending], Total Protein [Pending], Albumin [ Pending], Globulin [Pending], Amylase Level [Pending], Lipase [Pending] Height (Feet): 5 Height (Inches): 7.00 Weight (Pounds): 140 Objective WDWN NAD trach clear breath sounds bilaterally without rhonchi or wheeze [id number] without MRG NABS nontender no HSM no CCE reduced LOC Stevenson Medina MD Mar 06, 2020 07:52
[2020-03-06 08:00] VITALS: BP 134/74
[2020-03-06 08:01] LABS: ALANINE AMINOTRANSFERASE 13 U/L (12-78); ALBUMIN 1.4 G/DL (3.4-5.0); ALBUMIN/GLOBULIN RATIO 0.2 (1.0-2.7); ALKALINE PHOSPHATASE 261 U/L (46-116); AMYLASE 31 U/L (25-115); ANION GAP 5 mmol/L (5-15); ASPARTATE AMINO TRANSFERASE 49 U/L (15-37); BILIRUBIN,TOTAL 0.2 MG/DL (0.2-1.0); BLOOD UREA NITROGEN 11 mg/dL (7-18); CALCIUM 8.3 MG/DL (8.5-10.1); CARBON DIOXIDE 30 MMOL/L (21-32); CHLORIDE 107 MMOL/L (98-107); CREATININE 0.5 MG/DL (0.55-1.30); POTASSIUM 3.9 MMOL/L (3.5-5.1); SODIUM 142 MMOL/L (136-145)
[2020-03-06] MEDS: Multivitamins W/Minerals 15 ML UDC GT SCH (10:23)
[2020-03-06] MEDS: Metoprolol Tartrate 50mg tab GT SCH (10:23)
[2020-03-06] MEDS: Zinc Sulfate 220mg GT SCH (10:24)
[2020-03-06] MEDS: cefTRIAXone 1 GM in D5W 55 ML IVPB SCH (10:24)
--- NOTE | 2020-03-06 10:29 | Surgery Progress Note ---
Surgery Progress Note Subjective Additional Comments afebrile HD stable comfortable appearing transfused and stable venous duplex negative Objective Last 24 Hour Vital Signs Date Time Temp Pulse Resp B/P (MAP) Pulse Ox O2 Delivery O2 Flow Rate FiO2 03/06/20 10:23 102 134/74 03/06/20 07:38 89 03/06/20 07:13 88 14 40 03/06/20 05:33 93 113/67 03/06/20 04:00 111 03/06/20 04:00 40 03/06/20 04:00 98.1 105 20 115/72 (86) 100 03/06/20 04:00 Mechanical Ventilator 03/06/20 03:20 88 16 40 03/06/20 00:00 102 03/06/20 00:00 98.4 104 18 130/90 (103) 100 03/06/20 00:00 40 03/06/20 00:00 Mechanical Ventilator 03/05/20 23:19 99 18 40 03/05/20 21:58 100 125/96 03/05/20 20:05 103 133/72 03/05/20 20:00 40 03/05/20 20:00 Mechanical Ventilator 03/05/20 20:00 96.8 100 19 133/72 (92) 98 03/05/20 20:00 113 03/05/20 19:05 103 14 40 03/05/20 16:00 98.1 102 20 120/76 (91) 100 03/05/20 16:00 40 03/05/20 16:00 112 03/05/20 16:00 Mechanical Ventilator 03/05/20 14:50 105 17 40 03/05/20 14:00 105 113/78 03/05/20 12:39 Mechanical Ventilator 03/05/20 12:20 103 14 40 03/05/20 12:00 98.4 97 20 113/78 (90) 100 03/05/20 12:00 40 03/05/20 11:31 94 I&O Intake and Output 03/05/20 03/06/20 19:00 07:00 Intake Total 660 ml 480 ml Output Total 300 ml 300 ml Balance 360 ml 180 ml Intake Free Water 60 ml Tube Feeding 600 ml 480 ml Output Urine Total 300 ml 300 ml # Bowel Movements 4 1 Dressing: other Wound: other Cardiovascular: RSR Respiratory: decreased breath sounds Abdomen: soft, non-tender, present bowel sounds Extremities: no edema, no tenderness, no cyanosis Laboratory Tests Test 03/06/20 06:36 White Blood Count 4.0 K/UL (4.8-10.8) L Red Blood Count 3.63 M/UL (4.20-5.40) L Hemoglobin 10.3 G/DL (12.0-16.0) L Hematocrit 33.0 % (37.0-47.0) L Mean Corpuscular Volume 91 FL (80-99) Mean Corpuscular Hemoglobin 28.5 PG (27.0-31.0) Mean Corpuscular Hemoglobin Concent 31.4 G/DL (32.0-36.0) L Red Cell Distribution Width 18.9 % (11.6-14.8) H Platelet Count 136 K/UL (150-450) L Mean Platelet Volume 6.4 FL (6.5-10.1) L Neutrophils (%) (Auto) % (45.0-75.0) Lymphocytes (%) (Auto) % (20.0-45.0) Monocytes (%) (Auto) % (1.0-10.0) Eosinophils (%) (Auto) % (0.0-3.0) Basophils (%) (Auto) % (0.0-2.0) Differential Total Cells Counted 100 Neutrophils % (Manual) 73 % (45-75) Lymphocytes % (Manual) 11 % (20-45) L Monocytes % (Manual) 8 % (1-10) Eosinophils % (Manual) 8 % (0-3) H Basophils % (Manual) 0 % (0-2) Band Neutrophils 0 % (0-8) Platelet Estimate Decreased L Platelet Morphology Normal Hypochromasia 1+ Anisocytosis 2+ Erythrocyte Sedimentation Rate 106 MM/HR (0-30) H Prothrombin Time 12.4 SEC (9.30-11.50) H Prothromb Time International Ratio 1.1 (0.9-1.1) Activated Partial Thromboplast Time 30 SEC (23-33) Sodium Level 142 MMOL/L (136-145) Potassium Level 3.9 MMOL/L (3.5-5.1) Chloride Level 107 MMOL/L (98-107) Carbon Dioxide Level 30 MMOL/L (21-32) Anion Gap 5 mmol/L (5-15) Blood Urea Nitrogen 11 mg/dL (7-18) Creatinine 0.5 MG/DL (0.55-1.30) L Estimat Glomerular Filtration Rate > 60 mL/min (>60) Glucose Level 97 MG/DL (74-106) Calcium Level 8.3 MG/DL (8.5-10.1) L Total Bilirubin 0.2 MG/DL (0.2-1.0) Aspartate Amino Transf (AST/SGOT) 49 U/L (15-37) H Alanine Aminotransferase (ALT/SGPT) 13 U/L (12-78) Alkaline Phosphatase 261 U/L (46-116) H C-Reactive Protein, Quantitative 7.3 mg/dL (0.00-0.90) H Total Protein 7.7 G/DL (6.4-8.2) Albumin 1.4 G/DL (3.4-5.0) L Globulin 6.3 g/dL Albumin/Globulin Ratio 0.2 (1.0-2.7) L Amylase Level 31 U/L (25-115) Lipase 114 U/L (73-393) Plan Problems: (1) Generalized weakness (2) Dermatitis (3) Hypoxia (4) Tracheostomy care (5) G tube feedings Assessment & Plan: DAILY ESTIMATED NEEDS: Needs based on Wound, critical care, DM 54kg abw 25-30 kcals/kg 9154-8503 total kcals 1.25-2 g protein/kg 68-108 g total protein 25-30 mL/kg 5975-3771 total fluid mLs NUTRITION DIAGNOSIS: Increased kcal and pro needs r/t wound healing as evidenced by pt w/ h/o multiple full thickness wounds, pending WC eval, pt is bedbound, trach and peg dep. CURRENT TF:Vital AF 1.2 @60ml/hr x20 hrs ENTERAL NUTRITION RECOMMENDATIONS: Glucerna 1.2 @60ml/hr x20 hrs to provide 1200ml, 1440 kcal, 72g pro, 966ml free H2O - Rec carb control formula, Glucerna 1.2. - TF meets 100% est needs at goal - Flush per MD. HOB over 30 degrees ADDITIONAL RECOMMENDATIONS: 1) Wound care: add GT BID, f/up w/ WC eval 2) Per SNF: 61 inches (5'1") and last wt 162 lbs, 73.6kg Maintain calibrated bed scale wts if adding P200 mattress 3) Rec NISS + accuchecks for improved BG (6) Multifocal pneumonia (7) Anemia (8) Decubitus skin ulcer Assessment & Plan: Pt presented on admission with Pressure Injuries, Tracheostomy,Alopecia, Generalized Hypopigmented Skin plaques. Few plaques noted to be open lesions but are pink and dry. Skin assessed under collar of trach and no areas of skin breakdown noted. Full thickness Pressure injury noted to R Buttocks(L)5.7cm x (W)1.7cm x (D) 0.3cm. Base of wound is 90% beefy-red,10% slough. Borders are macerated . surrounding dry skin with hypopigmented plaques. Full thickness Pressure injury L Buttocks(L)4.6cm x (W)4.5cm. Base of wound has clusters wounds with intertwining bridges. Wounds have mixed slough and jack appearances. Small amt serous exudate noted. Surrounding dry hypopigmented skin plaques. Proximally and in close proximity skin is denuded. Small pustule with surrounding erythema noted L Hallux(L)0.5cm x (W)0.6cm. NO changes in skin temp periwound. An area of hyperpigmentation from previous wound noted to medial/posterior R Heel. L Heel is otherwise boggy with non-blanching erythema. Reabsorbed DTPI L Heel(L)2.2cm x (W)2cm. Dry brown eschar at base of wound. NO erythema or fluctuance periwound. Unstageable Pressure injury L lateral Malleolus(L)0.7cm x (W)0.9cm. Base of wound has 100% slough.edges dry and adherent to base of wound. No erythema, induration,or fluctuance periwound. Tx.Plan: Cleanse wounds R and L Buttocks with Saline. Apply Therahoney to wounds. Apply Moisture Barrier Paste Periwound. Cover with Optifoam drsg Daily and prn. Apply Betadine to wound R Hallux. Cover with Optifoam drsg every 3 days and prn. Apply Betadine to L lateral Malleolus. Cover with Optifoam drsg. Change every 3 days and prn. Apply Cavilon Skin Barrier to both heels. Cover each heel with Optifoam drsg. Change every 7 days and prn. Apply moisture barrier paste to R and L Buttocks. Cover with Optiform dressing Q3 days and prn. Apply Cavilon skin barrier both heels cover each with Optiform dressing change Q 7 days and prn. Apply Phytoplex antifungal lotion for itching three times/day Reposition at least every 2hours or as tolerated. Off-load heels with pillow. APM/ELIDIA Mattress overlay. (9) Pneumonia Assessment & Plan: Bilateral interstitial and airspace opacities are again demonstrated. Tracheostomy remains. The heart size is normal. There is a left pleural effusion again demonstrated. (10) Symptomatic anemia Zia Chung Mar 06, 2020 10:29
[2020-03-06 12:00] VITALS: BP 121/76
--- NOTE | 2020-03-06 12:04 | Diagnostic Imaging Report ---
Indication: Abdominal pain Technique: Supine view of the abdomen Comparison: none Findings: There is a gastrostomy present. There are right upper quadrant surgical clips and right pelvic surgical. Bowel gas pattern is unremarkable. No masses or unusual calcifications Impression: Findings as noted. No acute process
[2020-03-06 16:00] VITALS: BP 120/76
--- NOTE | 2020-03-07 12:06 | Discharge Summary ---
Discharge Summary Discharge Summary _ DATE OF ADMISSION: 03/04/2020 DATE OF DISCHARGE: 03/06/2020 DISCHARGED BY: Dr. Medina REASON FOR ADMISSION: 54 years old female with past medical history of hypertension, COPD, breast cancer, status post chemotherapy, dysphagia, feeding by G-tube, chronic respiratory failure, ventilator dependent, with tracheostomy status, was sent for evaluation due to worsening anemia. Upon evaluation, patient had low tachycardia ; pulse oximetry was stable on current ventilator settings. EKG revealed sinus tachycardia , no acute ischemic changes. Chest x-ray revealed f bilateral interstitial airspace disease , unchanged since prior exam. Laboratory work-up revealed no leukocytosis ,hemoglobin 7.2, hematocrit 23.7 . Troponin negative Stable electrolytes and renal parameters. Albumin 1.4. Patient typed and crossed in emergency department. Stool for occult blood was negative. Patient subsequently admitted to [facility] for further management. CONSULTANTS: Surgery Dr. Chung [facility]: Patient admitted to [facility]. Patient received transfusion of 2 units of packed red blood cells. Prior to discharge hemoglobin 10.3, hematocrit 33. Rapid COVID-19 was negative. Urine culture revealed Texline and Klebsiella ESBL . Stool for C. difficile was negative . Antibiotics provided. SNF medication resumed, including antihypertensive. Ventilator support , tracheostomy care and pulmonary toilet provided. Strict aspiration precaution maintained. Tube feeding formula with goal rate provided as per registered dietitian recommendation. Venous duplex bilateral lower extremity was negative. Antidiarrheal provided , diarrhea significantly improved . Patient presented on admission with multiply pressure injuries. Wound care provided as per surgeon recommendation . Continue wound care at the facility. Supportive care provided . Patient clinically stabilized and was ready for transfer back to intermediate facility for continuation of care. FINAL DIAGNOSES: Anemia, status post blood transfusion UTI Chronic respiratory failure , ventilator dependent with tracheostomy status Dysphagia, feeding by G-tube History of sepsis Decubitus skin ulcer present on admission Chronic dermatitis DISCHARGE MEDICATIONS: See Medication Reconciliation list. DISCHARGE INSTRUCTIONS: Patient was discharged to the intermediate facility. Follow up with medical doctor at the facility. I have been assigned to dictate discharge summary for this account. I was not involved in the patient's management. Zaida Flaherty NP Mar 07, 2020 12:06
== END 2020-03-06 15:58 | DRG 663 ==
LOC: EDBD 09:33 → EMR 09:50 → 2W 11:34 → EDBEDREQ 12:10
PROC: 5A1945Z Respiratory Ventilation, 24-96 Consecutive Hours (ICD-10-PCS; principal; 2020-03-04)
PROC: 30233N1 Transfusion of Nonautologous Red Blood Cells into Peripheral Vein, Percutaneous Approach (ICD-10-PCS; 2020-03-04)
DX: D64.9 Anemia, unspecified (principal); J18.9 Pneumonia, unspecified organism; N39.0 Urinary tract infection, site not specified; Z85.3 Personal history of malignant neoplasm of breast; J96.10 Chronic respiratory failure, unspecified whether with hypoxia or hypercapnia; Z43.1 Encounter for attention to gastrostomy; Z43.0 Encounter for attention to tracheostomy; B96.1 Klebsiella pneumoniae [K. pneumoniae] as the cause of diseases classified elsewhere; B96.89 Other specified bacterial agents as the cause of diseases classified elsewhere; Z16.12 Extended spectrum beta lactamase (ESBL) resistance; L30.9 Dermatitis, unspecified; E87.1 Hypo-osmolality and hyponatremia; L89.323 Pressure ulcer of left buttock, stage 3; L89.313 Pressure ulcer of right buttock, stage 3; L89.520 Pressure ulcer of left ankle, unstageable; Z99.11 Dependence on respirator [ventilator] status; Z92.21 Personal history of antineoplastic chemotherapy
CPT/HCPCS: 36415; 71045; 74018; 80048; 80053; 81003; 82150; 83540; 83550; 83690; 84484; 85007; 85025; 85610; 85651; 85730; 86140; 86850; 86900; 86901; 86920; 87081; 87086; 87181; 87324; 93970; 94003; 94664; 96365; 96368; 99291; U0002

== ENCOUNTER 2020-05-16 10:25 | Inpatient (IN) | payer OTHER ==
[~2020-05-16] VITALS: Ht 157.5 cm; Wt 56.7 kg
[~2020-05-16 10:25] MED LIST changes: +DILTIAZEM HCL30 MG GT; +LANSOPRAZOLE30 M2 GT; +LOPERAMIDE2 MG GT; +MULTI-DELYN237 ML GT; +PRO-AMATINE2.5 MG GT; +PRO-STAT LIQUID30 ML GT; +UTI-STAT L3875 MG/31 GT; -UTI-STAT L3875 MG/31 PO; +ZINC SULFATE220 M2 GT
[2020-05-16] MEDS ORDERED: BACTRIM-DS1 EA GT (10:32)
[2020-05-16 10:40] VITALS: BP 72/60
--- NOTE | 2020-05-16 10:40 | NUR ---
ED Nurse Note: Patient was BIBA from [facility] due to abnormal labs. Patient vent dependent, AAO x3, VSS at this time. Patient has skin disease, has with severe itchiness.
--- NOTE | 2020-05-16 11:01 | Emergency Room Report ---
History of Present Illness General Chief Complaint: Abnormal Labs Source: EMS Present Illness HPI Disclaimer: Please note that this report is being documented using Tyto technology. This can lead to erroneous entry secondary to incorrect interpretation by the dictating instrument. HPI: 54-year-old female history of COPD who is trach and G-tube dependent for respiratory failure, breast cancer status post chemotherapy presents for anemia. Seen for anemia approximately 3 months ago requiring transfusion. Outpatient labs showed hemoglobin of 6.6. Also currently being treated for pneumonia according to accompanying records. Tested negative for COVID-19 on 05/14. Arrives with respiratory therapist on vent. Afebrile. Reports global weakness and fatigue. Denies pain or discomfort. Denies difficulty breathing. PMH: Cancer, COPD PSH: Trach, gastrostomy tube Allergies: Reviewed Social Hx: Reviewed Allergies: Coded Allergies: No Known Allergies (Unverified , 02/09/20) COVID-19 Screening Contact w/high risk pt: No Experienced COVID-19 symptoms?: No COVID-19 Testing performed [employer]: Yes - 05/14 COVID-19 Screening: Negative COVID-19 COVID-19 Testing Source: nasal Nursing Documentation-PMH Past Medical History: No History, Except For Hx Cardiac Problems: Yes Hx Hypertension: Yes Hx COPD: Yes - pneumonia Hx Diabetes: Yes Hx Neurological Problems: Yes - dementia Hx Cerebrovascular Accident: No Hx Dementia: Yes Hx Weakness: Yes Review of Systems All Other Systems: negative except mentioned in HPI Physical Exam Vital Signs Date Time Temp Pulse Resp B/P (MAP) Pulse Ox O2 Delivery O2 Flow Rate FiO2 05/16/20 10:27 99.0 96 18 90/60 (70) 100 General: Awake and alert, no acute distress, afebrile HEENT: NC/AT. EOMI. Neck: Tracheostomy in place. No signs of surrounding infection or leak Cardiovascular: Tachycardic. S1 and S2 normal. No murmur appreciated Resp: Vent dependent through tracheostomy. 100 % saturation. Bilateral breath sounds. Abdomen: Abdomen is soft, nondistended. G-tube in place without surrounding signs of infection or occlusion Skin: Diffuse hypopigmentation over the skin. Patient is itchy MSK: Normal tone and bulk. Moving all extremities. No obvious deformity. Neuro: Awake and alert. Mentating appropriately. Procedures Critical Care Time Critical Care Time Total critical care time: Approximately 31 minutes Due to a high probability of clinically significant, life threatening deterioration, the patient required the highest level of preparedness to intervene emergently and I personally spent this critical care time directly and personally managing the patient. This critical care time included obtaining a history, examining the patient, pulse oximetry, ordering and reviewing studies, ordering treatments, evaluating response to treatment and updating management plan as needed, frequent reassessment and discussion with other providers as well as arranging for ultimate disposition. This critical to care time was performed to assess and manage the high probability of life-threatening deterioration that could result in multiorgan failure. This critical care time is separate from the separately billable procedures and treating other patients. Medical Decision Making Diagnostic Impression: Primary Impression: Pneumonia Additional Impression: Symptomatic anemia ER Course 54-year-old female history of anemia, trach and vent dependent, cancer presents for evaluation of anemia. Also being treated for pneumonia according to paperwork. She arrives tachycardic but blood pressure is stable. Chest x-ray shows bilateral infiltrates consistent with history. She appears to be receiving antibiotics already. Hemoglobin confirmed to low at 7.1. Transfusion ongoing. Other labs within normal limits. Patient will be admitted to her PMD, Dr. Medina. SDU bed given her vent status. Laboratory Tests Test 05/16/20 11:23 White Blood Count 7.9 K/UL (4.8-10.8) Red Blood Count 2.66 M/UL (4.20-5.40) L Hemoglobin 7.1 G/DL (12.0-16.0) L Hematocrit 24.3 % (37.0-47.0) L Mean Corpuscular Volume 91 FL (80-99) Mean Corpuscular Hemoglobin 26.6 PG (27.0-31.0) L Mean Corpuscular Hemoglobin Concent 29.1 G/DL (32.0-36.0) L Red Cell Distribution Width 18.6 % (11.6-14.8) H Platelet Count 271 K/UL (150-450) Mean Platelet Volume 6.0 FL (6.5-10.1) L Neutrophils (%) (Auto) % (45.0-75.0) Lymphocytes (%) (Auto) % (20.0-45.0) Monocytes (%) (Auto) % (1.0-10.0) Eosinophils (%) (Auto) % (0.0-3.0) Basophils (%) (Auto) % (0.0-2.0) Neutrophils % (Manual) Pending Lymphocytes % (Manual) Pending Platelet Estimate Pending Platelet Morphology Pending Prothrombin Time 12.8 SEC (9.30-11.50) H Prothrombin Time INR 1.2 (0.9-1.1) H Activated Partial Thromboplast Time 34 SEC (23-33) H Sodium Level 134 MMOL/L (136-145) L Potassium Level 4.4 MMOL/L (3.5-5.1) Chloride Level 100 MMOL/L (98-107) Carbon Dioxide Level 32 MMOL/L (21-32) Anion Gap 2 mmol/L (5-15) L Blood Urea Nitrogen 28 mg/dL (7-18) H Creatinine 0.6 MG/DL (0.55-1.30) Estimated Glomerular Filtration Rate > 60 mL/min (>60) Glucose Level 95 MG/DL (74-106) Calcium Level 8.2 MG/DL (8.5-10.1) L Total Bilirubin Pending Aspartate Amino Transferase (AST) Pending Alanine Aminotransferase (ALT) Pending Alkaline Phosphatase Pending Troponin I Pending Total Protein Pending Albumin Pending Globulin Pending EKG Diagnostic Results Troponin ordered: Yes When was troponin ordered?: May 16, 2020 EKG Time: 11:05 Rate: normal Rhythm: NSR ST Segments: no acute changes Other Impression Sinus rhythm, normal axis, normal intervals, QTC 469 ms, no ST segment changes Rhythm Strip Diag. Results Rhythm Strip Time: 11:05 EP Interpretation: yes Rate: 90s Rhythm: NSR, no PVC's, no ectopy Chest X-Ray Diagnostic Results Chest X-Ray Diagnostic Results : Chest X-Ray Ordered: Yes # of Views/Limited/Complete: 1 View Indication: Shortness of Breath EP Interpretation: Yes Interpretation: no effusion, no pneumothorax, other - Tracheostomy in place. Bilateral infiltrates Impression: Other - Bilateral pneumonia, tracheostomy in place Electronically Signed by: Electronically signed by Dr. Thad Vasquez MD Last Vital Signs Date Time Temp Pulse Resp B/P (MAP) Pulse Ox O2 Delivery O2 Flow Rate FiO2 05/16/20 10:27 99.0 96 18 90/60 (70) 100 Disposition: ADMITTED INPATIENT Condition: Serious Thad Vasquez MD May 16, 2020 11:01
[2020-05-16] MEDS ORDERED: DiphenhydrAMINE 50mg/ml Inj IVP ONE (11:45)
[2020-05-16 11:54] LABS: HEMATOCRIT 24.3 % (37.0-47.0); HEMOGLOBIN 7.1 G/DL (12.0-16.0); MEAN CORPUSCULAR VOLUME 91 FL (80-99); PLATELET COUNT 271 K/UL (150-450); RED BLOOD COUNT 2.66 M/UL (4.20-5.40); RED CELL DISTRIBUTION WIDTH 18.6 % (11.6-14.8); WHITE BLOOD COUNT 7.9 K/UL (4.8-10.8)
[2020-05-16] MEDS ORDERED: DiphenhydrAMINE & Zinc 28g Cream TOPIC ONE (12:00)
[2020-05-16 12:12] LABS: ANION GAP 2 mmol/L (5-15); BLOOD UREA NITROGEN 28 mg/dL (7-18); CALCIUM 8.2 MG/DL (8.5-10.1); CARBON DIOXIDE 32 MMOL/L (21-32); CHLORIDE 100 MMOL/L (98-107); CREATININE 0.6 MG/DL (0.55-1.30); INR 1.2 (0.9-1.1); POTASSIUM 4.4 MMOL/L (3.5-5.1); SODIUM 134 MMOL/L (136-145)
[2020-05-16 12:17] LABS: ALBUMIN 1.7 G/DL (3.4-5.0); ALBUMIN/GLOBULIN RATIO 0.2 (1.0-2.7); ALKALINE PHOSPHATASE 383 U/L (46-116); ASPARTATE AMINO TRANSFERASE 30 U/L (15-37); BILIRUBIN,TOTAL 0.4 MG/DL (0.2-1.0)
--- NOTE | 2020-05-16 12:34 | History & Physical ---
History and Physical History & Physicial HISTORY OF PRESENT ILLNESS: This is a 54-year-old chronically ill patient with history of breast cancer status post chemotherapy and multiple other medical problems. The patient transferred for worsening anemia once again with associated hypotension. NO evidence of GIB noted. The patient now admitted for further care and management and further evaluation. PAST MEDICAL HISTORY: Notable for chronic respiratory failure, chronic dermatitis, history of breast cancer, history of anemia, history of tracheostomy, and history of G-tube. MEDICATIONS: Reviewed. ALLERGIES: Reviewed. REVIEW OF SYSTEMS: Difficult to obtain. PHYSICAL EXAMINATION: GENERAL: A well-developed female, chronically ill-appearing. VITAL SIGNS: reviewed LUNGS: With scattered rhonchi. CARDIAC: Tachycardic. ABDOMEN: Soft. G-tube in place. EXTREMITIES: No cyanosis, clubbing, or edema. Labs Test 05/16/20 11:23 White Blood Count 7.9 K/UL (4.8-10.8) Red Blood Count 2.66 M/UL (4.20-5.40) Hemoglobin 7.1 G/DL (12.0-16.0) Hematocrit 24.3 % (37.0-47.0) Mean Corpuscular Volume 91 FL (80-99) Mean Corpuscular Hemoglobin 26.6 PG (27.0-31.0) Mean Corpuscular Hemoglobin Concent 29.1 G/DL (32.0-36.0) Red Cell Distribution Width 18.6 % (11.6-14.8) Platelet Count 271 K/UL (150-450) Mean Platelet Volume 6.0 FL (6.5-10.1) Neutrophils (%) (Auto) % (45.0-75.0) Lymphocytes (%) (Auto) % (20.0-45.0) Monocytes (%) (Auto) % (1.0-10.0) Eosinophils (%) (Auto) % (0.0-3.0) Basophils (%) (Auto) % (0.0-2.0) Differential Total Cells Counted 100 Neutrophils % (Manual) 70 % (45-75) Lymphocytes % (Manual) 17 % (20-45) Monocytes % (Manual) 6 % (1-10) Eosinophils % (Manual) 4 % (0-3) Basophils % (Manual) 0 % (0-2) Band Neutrophils 3 % (0-8) Platelet Estimate Adequate Platelet Morphology Normal Polychromasia 1+ Hypochromasia 1+ Anisocytosis 1+ Prothrombin Time 12.8 SEC (9.30-11.50) Prothromb Time International Ratio 1.2 (0.9-1.1) Activated Partial Thromboplast Time 34 SEC (23-33) Sodium Level 134 MMOL/L (136-145) Potassium Level 4.4 MMOL/L (3.5-5.1) Chloride Level 100 MMOL/L (98-107) Carbon Dioxide Level 32 MMOL/L (21-32) Anion Gap 2 mmol/L (5-15) Blood Urea Nitrogen 28 mg/dL (7-18) Creatinine 0.6 MG/DL (0.55-1.30) Estimat Glomerular Filtration Rate > 60 mL/min (>60) Glucose Level 95 MG/DL (74-106) Calcium Level 8.2 MG/DL (8.5-10.1) Total Bilirubin 0.4 MG/DL (0.2-1.0) Aspartate Amino Transf (AST/SGOT) 30 U/L (15-37) Alkaline Phosphatase 383 U/L (46-116) Troponin I 0.005 ng/mL (0.000-0.056) Total Protein 9.8 G/DL (6.4-8.2) Albumin 1.7 G/DL (3.4-5.0) Globulin 8.1 g/dL Albumin/Globulin Ratio 0.2 (1.0-2.7) Anemia, status post blood transfusion history of UTI Chronic respiratory failure , ventilator dependent with tracheostomy status Dysphagia, feeding by G-tube History of sepsis Decubitus skin ulcer present on admission Chronic dermatitis Hypotension PLAN Transfuse gi eval maintain snf meds nutrition care reviewed vent support impression, plan, and exam edited and reviewed in detail care discussed with Stevenson Emerson MD May 16, 2020 12:34
[2020-05-16 12:52] LABS: ALANINE AMINOTRANSFERASE 8 U/L (12-78)
--- NOTE | 2020-05-16 13:07 | NUR ---
ED Nurse Note: blood transfusion was started at 1307 at rate 100mL/hr
--- NOTE | 2020-05-16 13:32 | NUR ---
ED Nurse Note: first 15 min pass after blood transfusion was started, no blood transfusion reaction noted, patient's VSS at this time
[2020-05-16 14:42] VITALS: BP 120/70
--- NOTE | 2020-05-16 15:10 | NUR ---
ED Nurse Note: blood transfusion was done at 1510, VSS at this time
--- NOTE | 2020-05-16 15:11 | Diagnostic Imaging Report ---
Indication: Shortness of breath Technique: XRAY Chest 1v Comparison: 03/04/2020 Findings: Heart size and mediastinal contours are stable. Tracheostomy tube again noted. There is bilateral interstitial and subtle patchy perihilar alveolar opacities. No significant pleural effusion. No pneumothorax. No acute osseous abnormality. IMPRESSION: Interstitial and patchy perihilar airspace opacities. Findings may be related to CHF with interstitial and foci of developing alveolar edema. Additional consideration would include multifocal pneumonia. Clinical correlation and follow-up recommended.
--- NOTE | 2020-05-16 16:56 | Consultation ---
History of Present Illness General Date patient seen: May 16, 2020 Reason for Hospitalization: Abnormal Labs Present Illness HPI 54 year old very unfortunate female known to me from prior presented with abnormal labs, anemia, eval pna, noted to still have considerable concerning decubitus ulcers, malnutrition, declining. surgery called to evaluate and assist with care. patient seen, chart reviewed, patient examined. limited exam and history. emr reviewed. albs reviewed, imaging reviewed. Allergies: Coded Allergies: No Known Allergies (Unverified , 02/09/20) COVID-19 Screening Contact w/high risk pt: No Experienced COVID-19 symptoms?: No Medication History Scheduled Amino Acids/Protein Hydrolys (Pro-Stat Liquid), 30 ML GT TWICE A DAY, (Reported) Ascorbic Acid* (Vitamin C*), 500 MG GT DAILY, (Reported) Cran/Vitc/Mannose/Inulin/Brom (Uti-Stat Liquid), 30 ML PO DAILY, (Reported) Epoetin Liam (Epogen), 10,000 UNIT SUBQ 3XW, (Reported) Famotidine* (Pepcid 20mg tablet*), 20 MG GT TWICE A DAY, (Reported) Ferrous Sulfate (Ferrous Sulfate), 7.5 ML GT THREE TIMES A DAY, (Reported) Levothyroxine Sodium* (Synthorid*), 75 MCG ORAL DAILY, (Reported) Metoprolol Tartrate* (Metoprolol Tartrate*), 12.5 MG GT EVERY 12 HOURS, (Reported) Midodrine (Midodrine HCl), 2.5 MG GT THREE TIMES A DAY, (Reported) Multivitamin Liquid* (Multi-Delyn*), 15 ML GT DAILY, (Reported) Trimethoprim/Sulfamethoxazole (Bactrim Ds Tablet), 1 TAB GT TWICE A DAY, (Reported) Zinc Sulfate (Zinc Sulfate), 220 MG GT DAILY, (Reported) Scheduled PRN Acetaminophen 160MG/5ML* (Acetaminophen*), 20 ML ORAL Q4HR PRN for For Pain, (Reported) Clonidine Hcl* (Catapres*), 0.1 MG GT EVERY 6 HOURS PRN for For High Blood Pressure, (Reported) Diphenhydramine HCl (Benadryl), 25 MG GT for Itching, (Reported) Hydrocodone Bit/Acetaminophen 5-325* (Dixon 5-325 Tablet*), 1 TAB GT for Pain from Changing Dressing, (Reported) Miscellaneous Medications Diltiazem Hcl (Diltiazem Hcl), 30 MG GT, (Reported) Lansoprazole (Lansoprazole), 30 MG GT, (Reported) Loperamide Hcl (Loperamide), 2 MG GT, (Reported) Patient History Limited by: medical condition History Provided By: Medical Record, PMD Healthcare decision maker Resuscitation status Advanced Directive on File Past Medical/Surgical History Past Medical/Surgical History: (1) Decubitus skin ulcer (2) Pneumonia (3) Symptomatic anemia Review of Systems Review of Symptoms General ROS: no weight loss or fever Psychological ROS: no depression or mood changes, no memory loss Ophthalmic ROS: no visual changes or eye irritation ENT ROS: no nasal congestion, hearing loss, dizziness Allergy and Immunology ROS: no allergic symptoms or urticaria Hematological and Lymphatic ROS: no swollen glands, unusual bleeding or bruising Endocrine ROS: no polyuria, polydipsia, weight changes, temperature intolerance Respiratory ROS: no cough, shortness of breath, or wheezing Cardiovascular ROS: no chest pain or dyspnea on exertion Gastrointestinal ROS: denies abdominal pain, bright red blood in stool. Musculoskeletal ROS: no myalgias or arthralgias Neurological ROS: no TIA or stroke symptoms Dermatological ROS: no new or changing skin lesions, rashes or pruritis limited given medical condition Physical Exam Physical Exam General appearance: ill apperaing, no distress, appears stated age Head: Normocephalic, without obvious abnormality, atraumatic Eyes: conjunctivae/corneas clear. PERRL, EOM's intact. Fundi benign Throat: Lips, mucosa, and tongue normal. Teeth and gums normal Neck: supple, symmetrical, trachea midline, no adenopathy, thyroid: not enlarged, symmetric, no tenderness/mass/nodules, no carotid bruit and no JVD Lungs: dec to auscultation bilaterally Heart: regular rate and rhythm, S1, S2 normal, no murmur, click, rub or gallop Abdomen: soft, non-tender. Bowel sounds normal. No masses, no organomegaly Extremities: extremities normal, atraumatic, no cyanosis or edema Pulses: 2+ and symmetric Skin: Skin see below Neurologic: Grossly normal Last 24 Hour Vital Signs Date Time Temp Pulse Resp B/P (MAP) Pulse Ox O2 Delivery O2 Flow Rate FiO2 05/16/20 15:10 98.5 92 18 05/16/20 14:42 98.7 96 15 120/70 100 Mechanical Ventilator 36 05/16/20 13:50 103 15 36 05/16/20 13:32 98.7 95 20 05/16/20 13:07 98.7 107 20 05/16/20 10:50 99 18 36 05/16/20 10:50 99 18 100 Mechanical Ventilator 36 05/16/20 10:40 99.0 114 18 72/60 100 05/16/20 10:27 99.0 96 18 90/60 (70) 100 Laboratory Tests Test 05/16/20 11:23 White Blood Count 7.9 K/UL (4.8-10.8) Red Blood Count 2.66 M/UL (4.20-5.40) L Hemoglobin 7.1 G/DL (12.0-16.0) L Hematocrit 24.3 % (37.0-47.0) L Mean Corpuscular Volume 91 FL (80-99) Mean Corpuscular Hemoglobin 26.6 PG (27.0-31.0) L Mean Corpuscular Hemoglobin Concent 29.1 G/DL (32.0-36.0) L Red Cell Distribution Width 18.6 % (11.6-14.8) H Platelet Count 271 K/UL (150-450) Mean Platelet Volume 6.0 FL (6.5-10.1) L Neutrophils (%) (Auto) % (45.0-75.0) Lymphocytes (%) (Auto) % (20.0-45.0) Monocytes (%) (Auto) % (1.0-10.0) Eosinophils (%) (Auto) % (0.0-3.0) Basophils (%) (Auto) % (0.0-2.0) Differential Total Cells Counted 100 Neutrophils % (Manual) 70 % (45-75) Lymphocytes % (Manual) 17 % (20-45) L Monocytes % (Manual) 6 % (1-10) Eosinophils % (Manual) 4 % (0-3) H Basophils % (Manual) 0 % (0-2) Band Neutrophils 3 % (0-8) Platelet Estimate Adequate Platelet Morphology Normal Polychromasia 1+ Hypochromasia 1+ Anisocytosis 1+ Prothrombin Time 12.8 SEC (9.30-11.50) H Prothromb Time International Ratio 1.2 (0.9-1.1) H Activated Partial Thromboplast Time 34 SEC (23-33) H Sodium Level 134 MMOL/L (136-145) L Potassium Level 4.4 MMOL/L (3.5-5.1) Chloride Level 100 MMOL/L (98-107) Carbon Dioxide Level 32 MMOL/L (21-32) Anion Gap 2 mmol/L (5-15) L Blood Urea Nitrogen 28 mg/dL (7-18) H Creatinine 0.6 MG/DL (0.55-1.30) Estimat Glomerular Filtration Rate > 60 mL/min (>60) Glucose Level 95 MG/DL (74-106) Calcium Level 8.2 MG/DL (8.5-10.1) L Total Bilirubin 0.4 MG/DL (0.2-1.0) Aspartate Amino Transf (AST/SGOT) 30 U/L (15-37) Alanine Aminotransferase (ALT/SGPT) 8 U/L (12-78) L Alkaline Phosphatase 383 U/L (46-116) H Troponin I 0.005 ng/mL (0.000-0.056) Total Protein 9.8 G/DL (6.4-8.2) H Albumin 1.7 G/DL (3.4-5.0) L Globulin 8.1 g/dL Albumin/Globulin Ratio 0.2 (1.0-2.7) L Height (Feet): 5 Height (Inches): 2.00 Weight (Pounds): 125 Assessment/Plan Problem List: (1) Pneumonia ICD Codes: J18.9 - Pneumonia, unspecified organism SNOMED: 351558186 (2) Symptomatic anemia ICD Codes: D64.9 - Anemia, unspecified SNOMED: 408017570 (3) Decubitus skin ulcer Assessment & Plan: Pt presented on admission with Pressure Injuries, Tracheostomy,Alopecia, Generalized Hypopigmented Skin plaques. Few plaques noted to be open lesions but are pink and dry. Skin assessed under collar of trach and no areas of skin breakdown noted. Full thickness Pressure injury noted to R Buttocks(L)5.7cm x (W)1.7cm x (D)0.3cm. Base of wound is 90% beefy-red,10% slough. Borders are macerated . surrounding dry skin with hypopigmented plaques. Full thickness Pressure injury L Buttocks(L)4.6cm x (W)4.5cm. Base of wound has clusters wounds with intertwining bridges. Wounds have mixed slough and jack appearances. Small amt serous exudate noted. Surrounding dry hypopigmented skin plaques. Proximally and in close proximity skin is denuded. Small pustule with surrounding erythema noted L Hallux(L)0.5cm x (W)0.6cm. NO changes in skin temp periwound. An area of hyperpigmentation from previous wound noted to medial/posterior R Heel. L Heel is otherwise boggy with non-blanching erythema. Reabsorbed DTPI L Heel(L)2.2cm x (W)2cm. Dry brown eschar at base of wound. NO erythema or fluctuance periwound. Unstageable Pressure injury L lateral Malleolus(L)0.7cm x (W)0.9cm. Base of wound has 100% slough.edges dry and adherent to base of wound. No erythema,induration,or fluctuance periwound. Tx.Plan: Cleanse wounds R and L Buttocks with Saline. Apply Therahoney to wounds. Apply Moisture Barrier Paste Periwound. Cover with Optifoam drsg Daily and prn. Apply Betadine to wound R Hallux. Cover with Optifoam drsg every 3 days and prn. Apply Betadine to L lateral Malleolus. Cover with Optifoam drsg. Change every 3 days and prn. Apply Cavilon Skin Barrier to both heels. Cover each heel with Optifoam drsg. Change every 7 days and prn. Apply moisture barrier paste to R and L Buttocks. Cover with Optiform dressing Q3 days and prn. Apply Cavilon skin barrier both heels cover each with Optiform dressing change Q 7 days and prn. Apply Phytoplex antifungal lotion for itching three times/day Reposition at least every 2hours or as tolerated. Off-load heels with pillow. APM/ELIDIA Mattress overlay. ICD Codes: L89.90 - Pressure ulcer of unspecified site, unspecified stage SNOMED: 695220945 Zia Chung May 16, 2020 16:56
--- NOTE | 2020-05-16 17:06 | NUR ---
ED Nurse Note: report given to SinghRN
[2020-05-16 17:30] VITALS: BP 113/68
--- NOTE | 2020-05-16 17:45 | NUR ---
NURSE NOTES: Received patient from ED Nurse Chary SOW. Patient is awake, alert and oriented x4, Sinus Rhythm on the heart monitor, HR 96. Receiving oxygen via trache to vent, vent settings: AC 14, TV 550, FiO2 35%. G-tube is patent and intact. IV site is Left AC 22g and Right AC 20g both patent and intact. Vann catheter is intact and draining. General skin appearance is discolored and dry, multiple scabs on general skin area. Bed is locked, placed in lowest position, side rails up x3, bed alarm on, head of bed elevated, call light within reach. Will continue to monitor.
[2020-05-16 18:00] VITALS: BP 136/61
--- NOTE | 2020-05-16 18:04 | NUR ---
ED Nurse Note: Patient was admited to SDU due to low hemoglobin level and pneumonia. Patient is vent dependent, AAO x2, VSS at this time. Patient was transfered to the unit via gurney by ACLS protocol, with all belongings
[2020-05-16 19:00] VITALS: BP 112/64
[2020-05-16] MEDS: Acetaminophen 650mg/20.3ml GT PRN (19:11)
--- NOTE | 2020-05-16 19:43 | NUR ---
NURSE HAND-OFF REPORT: Latest Vital Signs: Temperature 101.1 , Pulse 96 , B/P 112 /64 , Respiratory Rate 14 , O2 SAT 100 , Mechanical Ventilator, O2 Flow Rate . Vital Sign Comment: EKG Rhythm: Sinus Rhythm Rhythm change?: MD Notified?: - MD Response: Latest Hope Fall Score: 70 Fall Risk: High Risk Safety Measures: Call light Within Reach, Bed Alarm Zone 1, Side Rails Side Rails x3, Bed position Low and Locked. Fall Precautions: Yellow Socks Report given to Khushi SOW.
--- NOTE | 2020-05-16 19:44 | NUR ---
NURSE NOTES: Patient received from MAGI Winters. patient awake alert oriented x3 follow simple commands speech muffled with trach on ventilator AC14 [id number] FiO2 35% PEEP 5. moderate amount of thick mercado secretions noted. BP 112/48 HR 109 Sinus tachy on monitor and afebrile. left AC and Right AC #20 SL. gtube clamped patent with no residual but abdomen soft round with hyperactive bowel sounds. Vann catheter draining light brooke urine. skin discoloration pink red warm to touch with bleeding noted from scratching behind left ear, sacral stage II covered with Optifoam. patient repositioned and oral care provided. bed locked lowest position call light within reach.
[2020-05-16] MEDS ORDERED: HYDROcodone/Acetamin 5/325 tab GT PRN (19:45)
--- NOTE | 2020-05-16 19:55 | NUR ---
NURSE NOTES: Spoke with sarah Celis Jr to confirm code status is Full code.
[2020-05-16 20:00] VITALS: BP 115/45
[2020-05-16] MEDS: Vancomycin 750 MG in NS 275 ML IVPB SCH (20:06)
--- NOTE | 2020-05-16 20:29 | General Progress Note ---
Subjective Allergies: Coded Allergies: No Known Allergies (Unverified , 02/09/20) Objective Last 24 Hour Vital Signs Date Time Temp Pulse Resp B/P (MAP) Pulse Ox O2 Delivery O2 Flow Rate FiO2 05/16/20 19:33 96 14 36 05/16/20 19:00 96 14 112/64 (80) 100 05/16/20 18:52 36 05/16/20 18:52 Mechanical Ventilator 05/16/20 18:00 101 15 136/61 (86) 100 05/16/20 17:55 104 15 36 05/16/20 17:55 98.5 96 18 100/65 100 Mechanical Ventilator 36 05/16/20 17:30 101.1 105 17 113/68 (83) 100 05/16/20 15:10 98.5 92 18 05/16/20 14:42 98.7 96 15 120/70 100 Mechanical Ventilator 36 05/16/20 13:50 103 15 36 05/16/20 13:32 98.7 95 20 05/16/20 13:07 98.7 107 20 05/16/20 10:50 99 18 36 05/16/20 10:50 99 18 100 Mechanical Ventilator 36 05/16/20 10:40 99.0 114 18 72/60 100 05/16/20 10:27 99.0 96 18 90/60 (70) 100 Laboratory Tests 05/16/20 11:23: White Blood Count 7.9, Red Blood Count 2.66L, Hemoglobin 7.1L, Hematocrit 24.3L, Mean Corpuscular Volume 91, Mean Corpuscular Hemoglobin 26.6L, Mean Corpuscular Hemoglobin Concent 29.1L, Red Cell Distribution Width 18.6H, Platelet Count 271, Mean Platelet Volume 6.0L, Neutrophils (%) (Auto) , Lymphocytes (%) (Auto) , Monocytes (%) (Auto) , Eosinophils (%) (Auto) , Basophils (%) (Auto) , Differential Total Cells Counted 100, Neutrophils % (Manual) 70, Lymphocytes % (Manual) 17L, Monocytes % (Manual) 6, Eosinophils % (Manual) 4H, Basophils % (Manual) 0, Band Neutrophils 3, Platelet Estimate Adequate, Platelet Morphology Normal, Polychromasia 1+, Hypochromasia 1+, Anisocytosis 1+, Prothrombin Time 12.8H, Prothromb Time International Ratio 1.2H, Activated Partial Thromboplast Time 34H, Sodium Level 134L, Potassium Level 4.4, Chloride Level 100, Carbon Dioxide Level 32, Anion Gap 2L, Blood Urea Nitrogen 28H, Creatinine 0.6, Estimat Glomerular Filtration Rate > 60, Glucose Level 95, Calcium Level 8.2L, Total Bilirubin 0.4, Aspartate Amino Transf (AST/SGOT) 30, Alanine Aminotransferase (ALT/SGPT) 8L, Alkaline Phosphatase 383H, Troponin I 0.005, Total Protein 9.8H, Albumin 1.7L, Globulin 8.1, Albumin/Globulin Ratio 0.2L 05/16/20 18:15: Stool Occult Blood [Pending] Height (Feet): 5 Height (Inches): 2.00 Weight (Pounds): 125 Assessment/Plan Assessment/Plan: Assessment - Anemia, but with brown stools - Fever, PNA - Respiratory failure - Dysphagia / GT - h/o BRCA - skin disorder Recommendations - transfuse PRN - check OB - monitor labs - abx Priti Sequeira MD May 16, 2020 20:29
[2020-05-16] MEDS: Metoprolol Tartrate 12.5mg TAB GT SCH (21:00)
--- NOTE | 2020-05-16 21:24 | NUR ---
NURSE HAND-OFF REPORT: Important Events on Shift:WNL Patient Status: no signs of bleeding Diet: Pending Orders: Pending Results/Labs: Pending MD notification: Latest Vital Signs: Temperature 98.9 , Pulse 110 , B/P 115 /45 , Respiratory Rate 18 , O2 SAT 100 , Mechanical Ventilator, O2 Flow Rate . Vital Sign Comment: EKG Rhythm: Sinus Tachycardia Rhythm change?: N MD Notified?: - MD Response: Latest Hope Fall Score: 70 Fall Risk: High Risk Safety Measures: Call light Within Reach, Bed Alarm Zone 1, Side Rails Side Rails x3, Bed position Low and Locked. Fall Precautions: Yellow Socks Report given to MAGI HERNANDEZ.
[2020-05-16] MEDS: Epoetin Alfa-EPBX (NON ESRD)10,000 unit/ml vial SUBQ SCH (21:50)
[2020-05-16] MEDS: dilTIAZem HCl 30mg tab GT SCH (21:50)
--- NOTE | 2020-05-16 22:00 | NUR ---
NURSE NOTES: Pt transferred to the unit at 2119. Report received from MAGI Berry. Observed pt lying in the bed, c/o itchiness, prn med received from . A/O x 2. ST noted, HR 120. Trach to vent, AC 14/550/36%/5, tolerating vent setting at this time. GT intact, NPO at this time, left a message to regarding diet order, awaiting call back. F/C intact, draining light brooke color urine. IV on R AC 20G, intact. Pt pulled out L AC 20G. Bed bath given. Noted pt skin dry and easily peeled off, pt continuously scratching her body, bleeding from scratching noted on left head area, right head area. Sacral S2 noted, cleansed and covered with optifoam. Bed in the lowest position. Side rails up x3. Call light within reach. Will continue to monitor.
--- NOTE | 2020-05-16 22:15 | Consultation ---
DATE OF CONSULTATION: 05/16/2020 GASTROENTEROLOGY CONSULTATION CONSULTING PHYSICIAN: Priti Sequeira MD CHIEF COMPLAINT: I was asked to see this patient by Dr. Stevenson Medina for evaluation of anemia. HISTORY OF PRESENT ILLNESS: The patient is a debilitated 54-year-old woman, who has a tracheostomy and gastrostomy due to chronic ventilatory failure, who was brought into the hospital due to severe anemia. The patient denies any abdominal complaints. I believe she had a colonoscopy perhaps about a year ago although she cannot remember the details or location. The patient now is in the monitored unit and being evaluated by multiple specialties. PAST MEDICAL HISTORY: History of chronic respiratory failure, chronic hepatitis, history of breast cancer, history of anemia, status post tracheostomy, status gastrostomy, and bedbound state. FAMILY HISTORY: Noncontributory. SOCIAL HISTORY: Unavailable. ALLERGIES: Noted. PHYSICAL EXAMINATION: GENERAL: The patient is a debilitated woman with diffuse dermatitis, seen in the ICU. HEENT: Normocephalic and atraumatic. NECK: Showed a tracheostomy catheter. CARDIOVASCULAR: Regular rate and rhythm. ABDOMEN: Soft and flat with gastrostomy tube. EXTREMITIES: Revealed trace edema. LABORATORY DATA: Noted. ASSESSMENT: This patient presents with severe anemia of unclear etiology. The patient's stools are brown, and there is no obvious melena or hematochezia at this point. However, her blood count will be followed closely, and she will be transfused as needed. The patient should receive a proton pump inhibitor. The patient states she has had a colonoscopy about a year ago, the results are not available. She may require another examination and to evaluate the lower GI tract as well. RECOMMENDATIONS: Per above discussion and per orders written in the chart. Thank you for asking me to participate in the care of this patient. Priti Sequeira M.D. DR: Marlon JOB#: [id number] CC:
[2020-05-16] MEDS: Piperacillin/Tazobactam 3.375 GM in NS 110 ML IVPB SCH (22:24)
[2020-05-17] VITALS: BP 135/60
[2020-05-17 04:00] VITALS: BP 133/59
--- NOTE | 2020-05-17 04:31 | NUR ---
NURSE NOTES: Pt sleeping in the bed. SR noted. Tolerating current vent setting. No acute distress noted at this time. Bed bath given. Normal bm x1 noted. Will continue to monitor.
[2020-05-17 04:42] LABS: INR 1.2 (0.9-1.1)
[2020-05-17 04:54] LABS: HEMOGLOBIN 7.9 G/DL (12.0-16.0); MEAN CORPUSCULAR VOLUME 91 FL (80-99); PLATELET COUNT 262 K/UL (150-450); RED BLOOD COUNT 2.84 M/UL (4.20-5.40); RED CELL DISTRIBUTION WIDTH 18.1 % (11.6-14.8); WHITE BLOOD COUNT 7.8 K/UL (4.8-10.8)
[2020-05-17 05:35] LABS: ALANINE AMINOTRANSFERASE 8 U/L (12-78); ALBUMIN 1.5 G/DL (3.4-5.0); ALBUMIN/GLOBULIN RATIO 0.2 (1.0-2.7); ALKALINE PHOSPHATASE 307 U/L (46-116); AMYLASE 44 U/L (25-115); ANION GAP 8 mmol/L (5-15); ASPARTATE AMINO TRANSFERASE 39 U/L (15-37); BILIRUBIN,TOTAL 0.6 MG/DL (0.2-1.0); BLOOD UREA NITROGEN 20 mg/dL (7-18); CALCIUM 8.5 MG/DL (8.5-10.1); CARBON DIOXIDE 25 MMOL/L (21-32); CHLORIDE 105 MMOL/L (98-107); POTASSIUM 4.1 MMOL/L (3.5-5.1); SODIUM 138 MMOL/L (136-145)
[2020-05-17 05:41] LABS: CREATININE 0.6 MG/DL (0.55-1.30)
[2020-05-17] MEDS: Piperacillin/Tazobactam 3.375 GM in NS 110 ML IVPB SCH ×3 (06:34→22:00)
[2020-05-17] MEDS: dilTIAZem HCl 30mg tab GT SCH ×4 (06:35→21:10)
--- NOTE | 2020-05-17 07:30 | NUR ---
NURSE NOTES:Handoff received from MAGI Mckay. Patient received awake and alert and resting in bed, no acute signs of distress noted. patient is on trach to vent with settings: AC 14, TV550, FI02 36% and PEEP5. Patient is also on epic [facility] with HR of 90 SR. Patient is on isolation precaution for PUI COVID and history of MRSA, VRE and MDR as well as aspiration and fall risk. Patient also has G-tube patent and running glucerna 1.5 with goal of 60ML/HR currently at 20ML/HR. Bed in the low and locked position with call light within reach, IV site is clean dry and intact running antibiotic. Will follow plan of care.
[2020-05-17 08:00] VITALS: BP 116/70
[2020-05-17] MEDS: Vancomycin 750 MG in NS 275 ML IVPB SCH ×2 (08:00→21:01)
--- NOTE | 2020-05-17 08:04 | NUR ---
NURSE HAND-OFF REPORT: Important Events on Shift:c/o itchiness, prn order received. Patient Status: Vitals stable. SR on patient monitor. Diet: Glucerna 1.5 , 60cc/hr. now at 20cc/hr. Pending Orders: 2prbc for Hgb 7.9 Pending Results/Labs:[] Pending MD notification:[] Latest Vital Signs: Temperature 99.0 , Pulse 110 , B/P 120 /62 , Respiratory Rate 14 , O2 SAT 100 , Mechanical Ventilator, O2 Flow Rate . Vital Sign Comment: [] EKG Rhythm: Sinus Rhythm Rhythm change?: N MD Notified?: - MD Response: Latest Hope Fall Score: 70 Fall Risk: High Risk Safety Measures: Call light Within Reach, Bed Alarm Zone 1, Side Rails Side Rails x2, Bed position Low and Locked. Fall Precautions: Yellow Socks Yellow Gown Door Sign Patient Fall Education Report given to [].
--- NOTE | 2020-05-17 08:40 | Diagnostic Imaging Report ---
EXAM: XR Chest, 1 View CLINICAL HISTORY: F/U TECHNIQUE: Frontal view of the chest. COMPARISON: Chest radiograph May 24, 2020 FINDINGS/IMPRESSION: Midline tracheostomy tube. Worsening, patchy bilateral airspace opacities, consistent with worsening infiltrates. Small left pleural effusion, unchanged. No pneumothorax. Stable cardiomegaly.
--- NOTE | 2020-05-17 08:41 | Diagnostic Imaging Report ---
EXAM: XR Abdomen, 2 Views CLINICAL HISTORY: F/U TECHNIQUE: Frontal view of the abdomen/pelvis with upright view of the abdomen. COMPARISON: Abdominal radiograph March 06, 2020 FINDINGS/IMPRESSION: Stable gastrostomy tube. Nonobstructed bowel gas pattern. No free intraperitoneal air. Cholecystectomy clips. The lung bases are clear. Degenerative changes of the spine. Diffuse osseous demineralization.
[2020-05-17] MEDS: Zinc Sulfate 220mg GT SCH (09:07)
[2020-05-17] MEDS: Metoprolol Tartrate 12.5mg TAB GT SCH ×2 (09:07→21:10)
[2020-05-17] MEDS: Multivitamins W/Minerals 15 ML UDC GT SCH (09:08)
[2020-05-17] MEDS: Pantoprazole Inj IVP SCH (09:08)
[2020-05-17] MEDS: Ascorbic Acid 500mg tab GT SCH (09:08)
--- NOTE | 2020-05-17 09:09 | NUR ---
NURSE NOTES:Vann found on the bed with the balloon still inflated, no bleeding noted. Will notify
[2020-05-17] MEDS: DiphenhydrAMINE 25mg/10ml Elixir NG PRN (09:12)
--- NOTE | 2020-05-17 09:15 | Pulmonology Progress Note ---
Subjective ROS Limited/Unobtainable: Yes Allergies: Coded Allergies: No Known Allergies (Unverified , 02/09/20) Subjective care noted anemic elevated CRP Objective Last 24 Hour Vital Signs Date Time Temp Pulse Resp B/P (MAP) Pulse Ox O2 Delivery O2 Flow Rate FiO2 05/17/20 09:07 94 116/70 05/17/20 08:56 Mechanical Ventilator 05/17/20 08:00 99.1 94 16 116/70 (85) 100 05/17/20 07:07 110 14 36 05/17/20 06:35 88 120/62 05/17/20 04:00 Mechanical Ventilator 05/17/20 04:00 99 05/17/20 04:00 99.0 99 18 133/59 (83) 100 05/17/20 03:40 101 15 36 05/17/20 00:00 111 05/17/20 00:00 Mechanical Ventilator 05/17/20 00:00 98.9 96 18 135/60 (85) 100 05/16/20 23:08 106 14 36 05/16/20 21:50 115 112/65 05/16/20 20:00 Mechanical Ventilator 05/16/20 20:00 98.9 110 18 115/45 (68) 100 05/16/20 20:00 110 05/16/20 19:41 98.9 05/16/20 19:33 96 14 36 05/16/20 19:00 96 14 112/64 (80) 100 05/16/20 18:52 36 05/16/20 18:52 Mechanical Ventilator 05/16/20 18:00 101 15 136/61 (86) 100 05/16/20 17:55 104 15 36 05/16/20 17:55 98.5 96 18 100/65 100 Mechanical Ventilator 36 05/16/20 17:30 101.1 105 17 113/68 (83) 100 05/16/20 15:10 98.5 92 18 05/16/20 14:42 98.7 96 15 120/70 100 Mechanical Ventilator 36 05/16/20 13:50 103 15 36 05/16/20 13:32 98.7 95 20 05/16/20 13:07 98.7 107 20 05/16/20 10:50 99 18 36 05/16/20 10:50 99 18 100 Mechanical Ventilator 36 05/16/20 10:40 99.0 114 18 72/60 100 05/16/20 10:27 99.0 96 18 90/60 (70) 100 l Intake and Output 05/16/20 05/17/20 19:00 07:00 Intake Total 333.333 ml Output Total 700 ml 540 ml Balance -700 ml -206.667 ml Intake Free Water 50 ml IV Total 183.333 ml Tube Feeding 100 ml Output Urine Total 700 ml 540 ml # Bowel Movements 2 1 Objective WDWN NAD trach reduced breath sounds bilaterally without rhonchi or wheeze [id number] without MRG NABS nontender Gt no CCE nonfocal Laboratory Tests 05/16/20 11:23: White Blood Count 7.9, Red Blood Count 2.66L, Hemoglobin 7.1L, Hematocrit 24.3L, Mean Corpuscular Volume 91, Mean Corpuscular Hemoglobin 26.6L, Mean Corpuscular Hemoglobin Concent 29.1L, Red Cell Distribution Width 18.6H, Platelet Count 271, Mean Platelet Volume 6.0L, Neutrophils (%) (Auto) , Lymphocytes (%) (Auto) , Monocytes (%) (Auto) , Eosinophils (%) (Auto) , Basophils (%) (Auto) , Differential Total Cells Counted 100, Neutrophils % (Manual) 70, Lymphocytes % (Manual) 17L, Monocytes % (Manual) 6, Eosinophils % (Manual) 4H, Basophils % (Manual) 0, Band Neutrophils 3, Platelet Estimate Adequate, Platelet Morphology Normal, Polychromasia 1+, Hypochromasia 1+, Anisocytosis 1+, Prothrombin Time 12.8H, Prothromb Time International Ratio 1.2H, Activated Partial Thromboplast Time 34H, Sodium Level 134L, Potassium Level 4.4, Chloride Level 100, Carbon Dioxide Level 32, Anion Gap 2L, Blood Urea Nitrogen 28H, Creatinine 0.6, Estimat Glomerular Filtration Rate > 60, Glucose Level 95, Calcium Level 8.2L, Total Bilirubin 0.4, Aspartate Amino Transf (AST/SGOT) 30, Alanine Aminotransferase (ALT/SGPT) 8L, Alkaline Phosphatase 383H, Troponin I 0.005, Total Protein 9.8H, Albumin 1.7L, Globulin 8.1, Albumin/Globulin Ratio 0.2L 05/16/20 18:15: Stool Occult Blood [Pending] 11/21/20 03:45: White Blood Count 7.8, Red Blood Count 2.84L, Hemoglobin 7.9L, Hematocrit 26.0L, Mean Corpuscular Volume 91, Mean Corpuscular Hemoglobin 27.6, Mean Corpuscular Hemoglobin Concent 30.2L, Red Cell Distribution Width 18.1H, Platelet Count 262, Mean Platelet Volume 6.3L, Neutrophils (%) (Auto) , Lymphocytes (%) (Auto) , Monocytes (%) (Auto) , Eosinophils (%) (Auto) , Basophils (%) (Auto) , Neutrophils % (Manual) [Pending], Lymphocytes % (Manual) [Pending], Platelet Estimate [Pending], Platelet Morphology [Pending], Prothrombin Time 13.3H, Prothromb Time International Ratio 1.2H, Activated Partial Thromboplast Time 32, Sodium Level 138, Potassium Level 4.1, Chloride Level 105, Carbon Dioxide Level 25, Anion Gap 8, Blood Urea Nitrogen 20H, Creatinine 0.6, Estimat Glomerular Filtration Rate > 60, Glucose Level 60L, Calcium Level 8.5, Total Bilirubin 0.6, Aspartate Amino Transf (AST/SGOT) 39H, Alanine Aminotransferase (ALT/SGPT) 8L, Alkaline Phosphatase 307H, Total Protein 9.0H, Albumin 1.5L, Globulin 7.5, Albumin/Globulin Ratio 0.2L, Erythrocyte Sedimentation Rate 129H, Lactic Acid Level 1.00, C-Reactive Protein, Quantitative 19.9H, Amylase Level 44, Lipase 209 Current Medications Medications (Trade) Dose Ordered Sig/Lucy Route PRN Reason Start Time Stop Time Status Last Admin Dose Admin Acetaminophen (Tylenol) 650 mg Q4H PRN GT Mild Pain, Temp >100.5 05/16/20 17:45 06/15/20 17:44 05/16/20 19:11 Acetaminophen/ Hydrocodone Bitart ([place] 5/325) 1 tab Q8H PRN GT For Pain 05/16/20 19:45 05/23/20 19:44 Al Hydroxide/Mg Hydroxide (Mylanta) 30 ml Q4H PRN GT Abdominal cramps 05/16/20 17:45 06/15/20 17:44 Ascorbic Acid (Vitamin C) 500 mg DAILY GT 05/17/20 09:00 06/16/20 08:59 05/17/20 09:08 Clonidine HCl (Catapres Tab) 0.1 mg Q6H PRN GT SBP>160 or DBP>90 05/16/20 19:45 08/14/20 19:44 Diltiazem HCl (Cardizem Tab) 30 mg EVERY 8 HOURS GT 05/16/20 22:00 06/15/20 21:59 05/17/20 06:35 Diphenhydramine HCl (Benadryl) 25 mg Q6H PRN NG Itching 05/16/20 21:45 06/15/20 21:44 Epoetin Liam (Epoetin Liam-EPBX(NON ESRD)) 10,000 unit TUE-TUE-TUE SUBQ 05/16/20 21:00 08/14/20 20:59 05/16/20 21:50 Famotidine (Pepcid) 20 mg BID GT 05/17/20 09:00 08/15/20 08:59 05/17/20 09:07 Levothyroxine Sodium (Synthroid) 100 mcg DAILY@0630 GT 05/17/20 06:30 06/16/20 06:29 05/17/20 06:35 Metoprolol Tartrate (Lopressor) 12.5 mg Q12HR GT 05/16/20 21:00 08/14/20 20:59 05/17/20 09:07 Multivitamins (Multivitamins W/ Minerals 15ml Liquid) 15 ml DAILY GT 05/17/20 09:00 06/16/20 08:59 05/17/20 09:08 Pantoprazole (Protonix) 40 mg DAILY IVP 05/17/20 09:00 06/16/20 08:59 05/17/20 09:08 Piperacillin Sod/ Tazobactam Sod 3.375 gm/Sodium Chloride 110 ml @ 27.5 mls/hr Q8HR IVPB 05/16/20 22:00 05/23/20 21:59 05/17/20 06:34 Vancomycin HCl ([facility] pharmacy to dose) 1 ea DAILY PRN MISC Per rx protocol 05/16/20 17:45 06/15/20 17:44 Vancomycin HCl 750 mg/Sodium Chloride 275 ml @ 183.333 mls/hr Q12H IVPB 05/16/20 20:00 05/21/20 19:59 05/16/20 20:06 Zinc Sulfate (Zinc Sulfate) 220 mg DAILY GT 05/17/20 09:00 08/15/20 08:59 05/17/20 09:07 Assessment/Plan Assessment/Plan Anemia, status post blood transfusion history of UTI Chronic respiratory failure , ventilator dependent with tracheostomy status Dysphagia, feeding by G-tube History of sepsis Decubitus skin ulcer present on admission Chronic dermatitis Hypotension pericardial effusion PLAN Transfuse further gi eval maintain snf meds nutrition care reviewed vent support repeat CT chest obtain echo impression, plan, and exam edited and reviewed in detail care discussed with Stevenson Emerson MD May 17, 2020 09:15
--- NOTE | 2020-05-17 09:21 | NUR ---
CASE MANAGEMENT:REVIEW 54 YR OLD FEMALE BIBA FROM [facility] CC; ABNORMAL LABS PMH: TRACH/VENT/GTUBE SI:SYMPTOMATIC ANEMIA. BILATERAL PNA 99.0 96 18 90/60 100% ON VENT SUPPORT H/H-7.1/24.3 BUN+28 IS: TRANSFUSE 1 UNIT PRBC'S IV BENADRYL : TO STEP DOWN UNIT IS: IV ZOSYN Q8HRS
--- NOTE | 2020-05-17 10:21 | NUR ---
NURSE NOTES:Returned phone call to daughter Durga Rider and updated her on patient condition, she asked to be notified when the COVID result comes back so that they can visit.
--- NOTE | 2020-05-17 10:22 | NUR ---
NURSE NOTES:Called patient's son to verify he gave prior consent for blood transfusion, patient stated he had previously consented to blood transfusion and agrees to 2 more units of PRBC's. Telephone consent witnessed with second RN Marisol. Son also asked to be notified of COVID result so that he can visit, result still pending.
--- NOTE | 2020-05-17 11:05 | NUR ---
RESPIRATORY NOTE: PT RECEIVED STABLE ON AC/VC: 14, 550, 36%, +5. ALARMS ARE ON AND AUDIBLE. VENT CIRCUIT IS SECURE AND OUT OF THE WAY. NO S/S OF RESPIRATORY DISTRESS NOTED AT THIS TIME. WILL CONTINUE TO CLOSELY MONITOR.
--- NOTE | 2020-05-17 11:08 | NUR ---
RD ASSESSMENT & RECOMMENDATIONS SEE CARE ACTIVITY FOR COMPLETE ASSESSMENT DAILY ESTIMATED NEEDS: Needs based on Wound, critical care, wt loss, [employer]OR TF/ 52kg 25-35 kcals/kg 8972-3980 total kcals 1.25-2 g protein/kg 65-104 g total protein 25-30 mL/kg 1783-0609 total fluid mLs NUTRITION DIAGNOSIS: Increased kcal and pro needs r/t wound healing as evidenced by admitted w/ wounds @ BL buttocks, pending eval, suspected significant wt loss of 17lbs/10.5% in <3 months. CURRENT TF:Glucerna 1.5 @ 60ml/hr x 20 hrs ENTERAL NUTRITION RECOMMENDATIONS: Glucerna 1.5 @ 50ml/hr x 24 hrs to provide 1200ml, 1800 kcal, 99g pro, 911ml free H2O - Rec 24 hour continuous TF to prevent hypoglycemia - Rec goal rate of 50ml/hr x 24 hrs - Flush per MD. HOB over 30 degrees ADDITIONAL RECOMMENDATIONS: 1) Wound care: add GT BID, continue Vit C and ZnSO4 2) Per SNF: 61 inches (5'1") and wt= 145lbs (05/02/20) -> daily calibrated bedscale wt 3) Monitor BGs, need for NISS- h/o DM 4) Monitor lytes, replete as needed . .
--- NOTE | 2020-05-17 11:25 | NUR ---
NURSE NOTES:Blood collected and verified against patient using ID band with second RNKeith. Transfusion started.
--- NOTE | 2020-05-17 11:40 | NUR ---
NURSE NOTES:transfusion increased from 75ML/HR to 125ML/HR after 15 minutes, patient tolerating well, vitals remain stable and in range. no increase in temperature or decrease in BP noted.
--- NOTE | 2020-05-17 11:50 | NUR ---
NURSE NOTES:Vann inserted, patient tolerated well.
--- NOTE | 2020-05-17 11:56 | NUR ---
NURSE NOTES:Contacted Dr Medina as patient removed Cristobal. gave order to replace cristobal.
[2020-05-17 12:00] VITALS: BP 114/64
--- NOTE | 2020-05-17 12:10 | NUR ---
NURSE NOTES:patient given bed bath and linens changed.
--- NOTE | 2020-05-17 12:59 | Surgery Progress Note ---
Surgery Progress Note Subjective Additional Comments labs noted exam stable no n/v Objective Last 24 Hour Vital Signs Date Time Temp Pulse Resp B/P (MAP) Pulse Ox O2 Delivery O2 Flow Rate FiO2 05/17/20 12:00 98.4 94 18 114/64 (81) 100 05/17/20 11:59 Mechanical Ventilator 05/17/20 09:07 94 116/70 05/17/20 08:56 Mechanical Ventilator 05/17/20 08:00 95 05/17/20 08:00 99.1 94 16 116/70 (85) 100 05/17/20 07:07 110 14 36 05/17/20 06:35 88 120/62 05/17/20 04:00 Mechanical Ventilator 05/17/20 04:00 99 05/17/20 04:00 99.0 99 18 133/59 (83) 100 05/17/20 03:40 101 15 36 05/17/20 00:00 111 05/17/20 00:00 Mechanical Ventilator 05/17/20 00:00 98.9 96 18 135/60 (85) 100 05/16/20 23:08 106 14 36 05/16/20 21:50 115 112/65 05/16/20 20:00 Mechanical Ventilator 05/16/20 20:00 98.9 110 18 115/45 (68) 100 05/16/20 20:00 110 05/16/20 19:41 98.9 05/16/20 19:33 96 14 36 05/16/20 19:00 96 14 112/64 (80) 100 05/16/20 18:52 36 05/16/20 18:52 Mechanical Ventilator 05/16/20 18:00 101 15 136/61 (86) 100 05/16/20 17:55 104 15 36 05/16/20 17:55 98.5 96 18 100/65 100 Mechanical Ventilator 36 05/16/20 17:30 101.1 105 17 113/68 (83) 100 05/16/20 15:10 98.5 92 18 05/16/20 14:42 98.7 96 15 120/70 100 Mechanical Ventilator 36 05/16/20 13:50 103 15 36 05/16/20 13:32 98.7 95 20 05/16/20 13:07 98.7 107 20 I&O Intake and Output 05/16/20 05/17/20 19:00 07:00 Intake Total 333.333 ml Output Total 700 ml 540 ml Balance -700 ml -206.667 ml Intake Free Water 50 ml IV Total 183.333 ml Tube Feeding 100 ml Output Urine Total 700 ml 540 ml # Bowel Movements 2 1 Dressing: saturated Cardiovascular: RSR Respiratory: decreased breath sounds Abdomen: soft, non-tender, present bowel sounds Extremities: no tenderness, no cyanosis Laboratory Tests Test 05/16/20 18:15 05/17/20 03:45 Stool Occult Blood Positive (NEGATIVE) White Blood Count 7.8 K/UL (4.8-10.8) Red Blood Count 2.84 M/UL (4.20-5.40) L Hemoglobin 7.9 G/DL (12.0-16.0) L Hematocrit 26.0 % (37.0-47.0) L Mean Corpuscular Volume 91 FL (80-99) Mean Corpuscular Hemoglobin 27.6 PG (27.0-31.0) Mean Corpuscular Hemoglobin Concent 30.2 G/DL (32.0-36.0) L Red Cell Distribution Width 18.1 % (11.6-14.8) H Platelet Count 262 K/UL (150-450) Mean Platelet Volume 6.3 FL (6.5-10.1) L Neutrophils (%) (Auto) % (45.0-75.0) Lymphocytes (%) (Auto) % (20.0-45.0) Monocytes (%) (Auto) % (1.0-10.0) Eosinophils (%) (Auto) % (0.0-3.0) Basophils (%) (Auto) % (0.0-2.0) Differential Total Cells Counted 100 Neutrophils % (Manual) 88 % (45-75) H Lymphocytes % (Manual) 7 % (20-45) L Monocytes % (Manual) 3 % (1-10) Eosinophils % (Manual) 2 % (0-3) Basophils % (Manual) 0 % (0-2) Band Neutrophils 0 % (0-8) Platelet Estimate Adequate Platelet Morphology Normal Polychromasia 1+ Hypochromasia 1+ Anisocytosis 1+ Erythrocyte Sedimentation Rate 129 MM/HR (0-30) H Prothrombin Time 13.3 SEC (9.30-11.50) H Prothromb Time International Ratio 1.2 (0.9-1.1) H Activated Partial Thromboplast Time 32 SEC (23-33) Sodium Level 138 MMOL/L (136-145) Potassium Level 4.1 MMOL/L (3.5-5.1) Chloride Level 105 MMOL/L (98-107) Carbon Dioxide Level 25 MMOL/L (21-32) Anion Gap 8 mmol/L (5-15) Blood Urea Nitrogen 20 mg/dL (7-18) H Creatinine 0.6 MG/DL (0.55-1.30) Estimat Glomerular Filtration Rate > 60 mL/min (>60) Glucose Level 60 MG/DL (74-106) L Lactic Acid Level 1.00 mmol/L (0.4-2.0) Calcium Level 8.5 MG/DL (8.5-10.1) Total Bilirubin 0.6 MG/DL (0.2-1.0) Aspartate Amino Transf (AST/SGOT) 39 U/L (15-37) H Alanine Aminotransferase (ALT/SGPT) 8 U/L (12-78) L Alkaline Phosphatase 307 U/L (46-116) H C-Reactive Protein, Quantitative 19.9 mg/dL (0.00-0.90) H Total Protein 9.0 G/DL (6.4-8.2) H Albumin 1.5 G/DL (3.4-5.0) L Globulin 7.5 g/dL Albumin/Globulin Ratio 0.2 (1.0-2.7) L Amylase Level 44 U/L (25-115) Lipase 209 U/L (73-393) Plan Problems: (1) Pneumonia (2) Symptomatic anemia (3) Decubitus skin ulcer Assessment & Plan: Pt presented on admission with Pressure Injuries, Tracheostomy,Alopecia, Generalized Hypopigmented Skin plaques. Few plaques noted to be open lesions but are pink and dry. Skin assessed under collar of trach and no areas of skin breakdown noted. Full thickness Pressure injury noted to R Buttocks(L)5.7cm x (W)1.7cm x (D)0.3cm. Base of wound is 90% beefy-red,10% slough. Borders are macerated . surrounding dry skin with hypopigmented plaques. Full thickness Pressure injury L Buttocks(L)4.6cm x (W)4.5cm. Base of wound has clusters wounds with intertwining bridges. Wounds have mixed slough and jack appearances. Small amt serous exudate noted. Surrounding dry hypopigmented skin plaques. Proximally and in close proximity skin is denuded. Small pustule with surrounding erythema noted L Hallux(L)0.5cm x (W)0.6cm. NO changes in skin temp periwound. An area of hyperpigmentation from previous wound noted to medial/posterior R Heel. L Heel is otherwise boggy with non-blanching erythema. Reabsorbed DTPI L Heel(L)2.2cm x (W)2cm. Dry brown eschar at base of wound. NO erythema or fluctuance periwound. Unstageable Pressure injury L lateral Malleolus(L)0.7cm x (W)0.9cm. Base of wound has 100% slough.edges dry and adherent to base of wound. No erythema,induration,or fluctuance periwound. Tx.Plan: Cleanse wounds R and L Buttocks with Saline. Apply Therahoney to wounds. Apply Moisture Barrier Paste Periwound. Cover with Optifoam drsg Daily and prn. Apply Betadine to wound R Hallux. Cover with Optifoam drsg every 3 days and prn. Apply Betadine to L lateral Malleolus. Cover with Optifoam drsg. Change every 3 days and prn. Apply Cavilon Skin Barrier to both heels. Cover each heel with Optifoam drsg. Change every 7 days and prn. Apply moisture barrier paste to R and L Buttocks. Cover with Optiform dressing Q3 days and prn. Apply Cavilon skin barrier both heels cover each with Optiform dressing change Q 7 days and prn. Apply Phytoplex antifungal lotion for itching three times/day Reposition at least every 2hours or as tolerated. Off-load heels with pillow. APM/ELIDIA Mattress overlay. DAILY ESTIMATED NEEDS: Needs based on Wound, critical care, wt loss, MANAGER AIR TF/ 52kg 25-35 kcals/kg 3678-1197 total kcals 1.25-2 g protein/kg 65-104 g total protein 25-30 mL/kg 7334-2410 total fluid mLs NUTRITION DIAGNOSIS: Increased kcal and pro needs r/t wound healing as evidenced by admitted w/ wounds @ BL buttocks, pending eval, suspected significant wt loss of 17lbs/10.5% in <3 months. CURRENT TF:Glucerna 1.5 @ 60ml/hr x 20 hrs ENTERAL NUTRITION RECOMMENDATIONS: Glucerna 1.5 @ 50ml/hr x 24 hrs to provide 1200ml, 1800 kcal, 99g pro, 911ml free H2O - Rec 24 hour continuous TF to prevent hypoglycemia - Rec goal rate of 50ml/hr x 24 hrs - Flush per MD. HOB over 30 degrees ADDITIONAL RECOMMENDATIONS: 1) Wound care: add GT BID, continue Vit C and ZnSO4 2) Per SNF: 61 inches (5'1") and wt= 145lbs (05/02/20) -> daily calibrated bedscale wt 3) Monitor BGs, need for NISS- h/o DM 4) Monitor lytes, replete as needed Zia Chung May 17, 2020 12:59
--- NOTE | 2020-05-17 14:12 | NUR ---
NURSE NOTES:1400 IV antibiotic non-administered as blood is transfusing.
--- NOTE | 2020-05-17 14:30 | NUR ---
NURSE NOTES:First unit of PRBC's administered, patient tolerated well.
[2020-05-17 16:00] VITALS: BP 124/67
--- NOTE | 2020-05-17 16:22 | NUR ---
NURSE NOTES:2nd bag of PRBC's administered, verified with second RN, Marisol.
--- NOTE | 2020-05-17 16:37 | NUR ---
NURSE NOTES:Blood transfusion rate increased to 125ML/HR after 15 minutes, patient vitals stable.
--- NOTE | 2020-05-17 17:05 | General Progress Note ---
Subjective Allergies: Coded Allergies: No Known Allergies (Unverified , 02/09/20) Subjective Above noted d/w RN s/p transfusion Stools OB (+) message left with son to discuss Objective Last 24 Hour Vital Signs Date Time Temp Pulse Resp B/P (MAP) Pulse Ox O2 Delivery O2 Flow Rate FiO2 05/17/20 16:44 90 05/17/20 16:00 Mechanical Ventilator 05/17/20 15:54 36 05/17/20 15:05 90 14 36 05/17/20 14:34 85 114/64 05/17/20 13:00 85 05/17/20 12:00 98.4 94 18 114/64 (81) 100 05/17/20 12:00 105 05/17/20 11:59 Mechanical Ventilator 05/17/20 11:05 102 15 36 05/17/20 09:07 94 116/70 05/17/20 08:56 Mechanical Ventilator 05/17/20 08:00 95 05/17/20 08:00 99.1 94 16 116/70 (85) 100 05/17/20 07:07 110 14 36 05/17/20 06:35 88 120/62 05/17/20 04:00 Mechanical Ventilator 05/17/20 04:00 99 05/17/20 04:00 99.0 99 18 133/59 (83) 100 05/17/20 03:40 101 15 36 05/17/20 00:00 111 05/17/20 00:00 Mechanical Ventilator 05/17/20 00:00 98.9 96 18 135/60 (85) 100 05/16/20 23:08 106 14 36 05/16/20 21:50 115 112/65 05/16/20 20:00 Mechanical Ventilator 05/16/20 20:00 98.9 110 18 115/45 (68) 100 05/16/20 20:00 110 05/16/20 19:41 98.9 05/16/20 19:33 96 14 36 05/16/20 19:00 96 14 112/64 (80) 100 05/16/20 18:52 36 05/16/20 18:52 Mechanical Ventilator 05/16/20 18:00 101 15 136/61 (86) 100 05/16/20 17:55 104 15 36 05/16/20 17:55 98.5 96 18 100/65 100 Mechanical Ventilator 36 05/16/20 17:30 101.1 105 17 113/68 (83) 100 l Intake and Output 05/16/20 05/17/20 19:00 07:00 Intake Total 353.333 ml Output Total 700 ml 540 ml Balance -700 ml -186.667 ml Intake Free Water 50 ml IV Total 183.333 ml Tube Feeding 120 ml Output Urine Total 700 ml 540 ml # Bowel Movements 2 1 Laboratory Tests 05/16/20 18:15: Stool Occult Blood Positive 05/17/20 03:45: White Blood Count 7.8, Red Blood Count 2.84L, Hemoglobin 7.9L, Hematocrit 26.0L, Mean Corpuscular Volume 91, Mean Corpuscular Hemoglobin 27.6, Mean Corpuscular Hemoglobin Concent 30.2L, Red Cell Distribution Width 18.1H, Platelet Count 262, Mean Platelet Volume 6.3L, Neutrophils (%) (Auto) , Lymphocytes (%) (Auto) , Monocytes (%) (Auto) , Eosinophils (%) (Auto) , Basophils (%) (Auto) , Differential Total Cells Counted 100, Neutrophils % (Manual) 88H, Lymphocytes % (Manual) 7L, Monocytes % (Manual) 3, Eosinophils % (Manual) 2, Basophils % (Manual) 0, Band Neutrophils 0, Platelet Estimate Adequate, Platelet Morphology Normal, Polychromasia 1+, Hypochromasia 1+, Anisocytosis 1+, Erythrocyte Sedimentation Rate 129H, Prothrombin Time 13.3H, Prothromb Time International Ratio 1.2H, Activated Partial Thromboplast Time 32, Sodium Level 138, Potassium Level 4.1, Chloride Level 105, Carbon Dioxide Level 25, Anion Gap 8, Blood Urea Nitrogen 20H, Creatinine 0.6, Estimat Glomerular Filtration Rate > 60, Glucose Level 60L, Lactic Acid Level 1.00, Calcium Level 8.5, Total Bilirubin 0.6, Aspartate Amino Transf (AST/SGOT) 39H, Alanine Aminotransferase (ALT/SGPT) 8L, Alkaline Phosphatase 307H, C-Reactive Protein, Quantitative 19.9H, Total Protein 9.0H, Albumin 1.5L, Globulin 7.5, Albumin/Globulin Ratio 0.2L, Amylase Level 44, Lipase 209 Height (Feet): 5 Height (Inches): 2.00 Weight (Pounds): 125 Objective Thin woman in JAMES on r/o COVID isolation no distress NCAT (+) trach abd not distended Assessment/Plan Assessment/Plan: Assessment - Anemia, but with brown OB (+) stoolss - Fever, PNA - Respiratory failure - Dysphagia / GT - h/o BRCA - skin disorder Recommendations - transfuse PRN - will discuss with family - PPI - monitor labs - x Priti Sequeira MD May 17, 2020 17:05
[2020-05-17] MEDS ORDERED: SYNTHROID100 MCG GT (17:58)
[2020-05-17] MEDS ORDERED: VITAMIN C500 MG/11 GT (17:58)
--- NOTE | 2020-05-17 19:35 | NUR ---
NURSE NOTES:Blood transfusion completed, 2 units total administered today. Patient tolerated well. No adverse reactions.
--- NOTE | 2020-05-17 19:43 | NUR ---
NURSE HAND-OFF REPORT: Important Events on Shift: Patient received 2 units of PRBC's today Patient Status: Stable Diet: Glucerna 1.5@60ML/HR Pending Orders: COVID-19 pending Pending Results/Labs: Pending MD notification: Latest Vital Signs: Temperature 99.3 , Pulse 90 , B/P 124 /67 , Respiratory Rate 17 , O2 SAT 100 , Mechanical Ventilator, O2 Flow Rate . Vital Sign Comment: EKG Rhythm: Sinus Rhythm Rhythm change?: N MD Notified?: - MD Response: Latest Hope Fall Score: 70 Fall Risk: High Risk Safety Measures: Call light Within Reach, Bed Alarm Zone 1, Side Rails Side Rails x2, Bed position Low and Locked. Fall Precautions: Yellow Socks Yellow Gown Door Sign Patient Fall Education Report given to MAGI Cortez.
--- NOTE | 2020-05-17 19:45 | NUR ---
NURSE NOTES: Patient received from MAGI Salinas under the care of Dr. Medina for the admitting dx. of anemia. Patient NKA and full code status. On PUI isolation. Fall, isolation, and aspiration precaution observed and maintained at all times. Patient is alert and oriented x2-3, responsive with gestures and mouthing words in Sinhala. Patient tolerating vent settings well. No apparent distress or discomfort noted. Denies pain at this time. Will continue to monitor.
[2020-05-17 20:00] VITALS: BP 123/64
[2020-05-18] VITALS: BP 127/77
--- NOTE | 2020-05-18 00:10 | NUR ---
NURSE NOTES: Patient cleaned and perineal/perianal care provided. Noted excoriation on the perianal skin, rectal tube inserted, kept clean and dry at times. Will continue to monitor.
--- NOTE | 2020-05-18 03:00 | NUR ---
NURSE NOTES: Patient noted awake and watching TV. Tolerating vent settings well. Tolerating rectal tube well. Denies pain at this time. Will continue to monitor.
[2020-05-18 04:00] VITALS: BP 123/78
[2020-05-18 05:13] LABS: BASOPHILS % (AUTO) 1.1 % (0.0-2.0); EOSINOPHILS % (AUTO) 7.7 % (0.0-3.0); HEMOGLOBIN 12.1 G/DL (12.0-16.0); LYMPHOCYTES % (AUTO) 8.3 % (20.0-45.0); MEAN CORPUSCULAR VOLUME 93 FL (80-99); NEUTROPHILS % (AUTO) 75.8 % (45.0-75.0); PLATELET COUNT 268 K/UL (150-450); RED BLOOD COUNT 4.21 M/UL (4.20-5.40); RED CELL DISTRIBUTION WIDTH 16.8 % (11.6-14.8); WHITE BLOOD COUNT 5.4 K/UL (4.8-10.8)
[2020-05-18 05:35] LABS: ALANINE AMINOTRANSFERASE < 6 U/L (12-78); ALBUMIN 1.8 G/DL (3.4-5.0); ALBUMIN/GLOBULIN RATIO 0.2 (1.0-2.7); ALKALINE PHOSPHATASE 359 U/L (46-116); ANION GAP 8 mmol/L (5-15); ASPARTATE AMINO TRANSFERASE 41 U/L (15-37); BILIRUBIN,TOTAL 0.7 MG/DL (0.2-1.0); BLOOD UREA NITROGEN 20 mg/dL (7-18); CALCIUM 8.5 MG/DL (8.5-10.1); CARBON DIOXIDE 26 MMOL/L (21-32); CHLORIDE 108 MMOL/L (98-107); CREATININE 0.7 MG/DL (0.55-1.30); POTASSIUM 3.8 MMOL/L (3.5-5.1); SODIUM 142 MMOL/L (136-145)
[2020-05-18] MEDS: dilTIAZem HCl 30mg tab GT SCH ×3 (06:44→22:21)
[2020-05-18] MEDS: Piperacillin/Tazobactam 3.375 GM in NS 110 ML IVPB SCH ×3 (06:45→22:21)
--- NOTE | 2020-05-18 07:20 | NUR ---
NURSE HAND-OFF REPORT: Important Events on Shift: Inserted rectal tube Patient Status: stable Diet: GT Pending Orders: Pending Results/Labs: Pending MD notification: Latest Vital Signs: Temperature 99.1 , Pulse 92 , B/P 123 /78 , Respiratory Rate 18 , O2 SAT 100 , Mechanical Ventilator, O2 Flow Rate . Vital Sign Comment: SR-ST EKG Rhythm: Sinus Tachycardia Rhythm change?: N MD Notified?: N - MD Response: Latest Hope Fall Score: 70 Fall Risk: High Risk Safety Measures: Call light Within Reach, Bed Alarm Zone 1, Side Rails Side Rails x2, Bed position Low and Locked. Fall Precautions: Yellow Socks Yellow Gown Door Sign Patient Fall Education Report given to MAGI Hemphill.
--- NOTE | 2020-05-18 07:30 | NUR ---
NURSE NOTES: Received report from MAGI Cortez. The patient is resting on the bed but agitated, irritated, and resistant in medical care. The patient is AO x3 and able to make needs known via mouth words, facial expression, and body movement. SR to ST w/ HR of 100s on the cardiac cath technologist. The patient is trach'ed and on ventilator on following setting and oxygen saturation is 100%: Shiley 8, AC 14, TV 550, FiO2 36%, and PEEP 5. The patient's GT intact and patent and running Glucerna 1.5 @ 40mL/hr with the goal of 60mL/hr and no residual noted. Vann and rectal tube intact and draining by gravity. The patient's skin issue noted and dressing intact. The patient has L hand 22G that is intact and patent. New IV just inserted on L AC 20G that is intact and patent. The patient's bed in the lowest position, call light in reach, and fall and aspiration precaution reinforced. IV site intact and patent. Will follow up the lab and order. Will closely monitor the patient. Will continue plan of care.
[2020-05-18 08:00] VITALS: BP 108/73
--- NOTE | 2020-05-18 08:00 | NUR ---
NURSE NOTES: Morning vital signs taken. Morning nursing assessment done. Mild grade fever noted. Will administer Tylenol as PRN order. Will closely monitor the patient. Will continue plan of care.
[2020-05-18] MEDS: Vancomycin 750 MG in NS 275 ML IVPB SCH ×2 (08:45→20:25)
[2020-05-18] MEDS: Metoprolol Tartrate 12.5mg TAB GT SCH ×2 (09:00→20:26)
[2020-05-18] MEDS ORDERED: Tubing IV Secondary IV ONE (09:01)
[2020-05-18] MEDS ORDERED: NS 275ml ONE (09:01)
[2020-05-18] MEDS: Multivitamins W/Minerals 15 ML UDC GT SCH (09:15)
[2020-05-18] MEDS: Zinc Sulfate 220mg GT SCH (09:15)
[2020-05-18] MEDS: Ascorbic Acid 500mg tab GT SCH (09:15)
[2020-05-18] MEDS: Acetaminophen 650mg/20.3ml GT PRN (09:16)
[2020-05-18] MEDS: Pantoprazole Inj IVP SCH (09:16)
--- NOTE | 2020-05-18 10:00 | NUR ---
NURSE NOTES: Medications administered per order. The patient tolerated well. Metoprolol was on hold since parameter was out of range. Tylenol administered per PRN order for fever. Will closely monitor the patient. Will continue plan of care.
--- NOTE | 2020-05-18 10:02 | Pulmonology Progress Note ---
Subjective ROS Limited/Unobtainable: Yes Allergies: Coded Allergies: No Known Allergies (Unverified , 02/09/20) Subjective care noted anemic elevated CRP Objective Last 24 Hour Vital Signs Date Time Temp Pulse Resp B/P (MAP) Pulse Ox O2 Delivery O2 Flow Rate FiO2 05/18/20 09:46 99.3 05/18/20 09:00 99 108/73 05/18/20 08:55 104 05/18/20 07:29 92 18 36 05/18/20 06:44 105 123/78 05/18/20 04:00 99.1 93 18 123/78 (93) 100 05/18/20 04:00 36 05/18/20 04:00 Mechanical Ventilator 05/18/20 04:00 105 05/18/20 02:50 98 16 36 05/18/20 00:00 106 05/18/20 00:00 Mechanical Ventilator 05/18/20 00:00 36 05/18/20 00:00 98.2 118 18 127/77 (94) 100 05/17/20 23:10 95 16 36 05/17/20 21:10 96 123/64 05/17/20 21:10 98 123/64 05/17/20 20:00 Mechanical Ventilator 05/17/20 20:00 92 05/17/20 20:00 99.5 98 18 123/64 (83) 100 05/17/20 20:00 36 05/17/20 19:10 91 16 36 05/17/20 16:44 90 05/17/20 16:00 99.3 93 17 124/67 (86) 100 05/17/20 16:00 Mechanical Ventilator 05/17/20 15:54 36 05/17/20 15:05 90 14 36 05/17/20 14:34 85 114/64 05/17/20 13:00 85 05/17/20 12:00 98.4 94 18 114/64 (81) 100 05/17/20 12:00 105 05/17/20 11:59 Mechanical Ventilator 05/17/20 11:05 102 15 36 Intake and Output 05/17/20 05/18/20 19:00 07:00 Intake Total 590 ml 410 ml Balance 590 ml 410 ml Intake Free Water 180 ml Tube Feeding 160 ml 230 ml Blood Product 250 ml 180 ml # Bowel Movements 1 Objective WDWN NAD trach reduced breath sounds bilaterally without rhonchi or wheeze [id number] without MRG NABS nontender Gt no CCE nonfocal Microbiology Date/Time Source Procedure Growth Status 05/18/20 05:00 Stool Clostridium difficile Toxin Assay - Final Complete 05/16/20 16:53 Rectum VRE Culture - Final Enterococcus Faecium - Vre Complete 05/16/20 16:53 Nasal Nares MRSA Culture - Final Staphylococcus Aureus - Mrsa Complete Laboratory Tests 05/17/20 19:07: Vancomycin Level Trough 2.6L 05/18/20 03:36: White Blood Count 5.4, Red Blood Count 4.21, Hemoglobin 12.1#, Hematocrit 39.0#, Mean Corpuscular Volume 93, Mean Corpuscular Hemoglobin 28.7, Mean Corpuscular Hemoglobin Concent 31.0L, Red Cell Distribution Width 16.8H, Platelet Count 268, Mean Platelet Volume 6.0L, Neutrophils (%) (Auto) 75.8H, Lymphocytes (%) (Auto) 8.3L, Monocytes (%) (Auto) 7.0, Eosinophils (%) (Auto) 7.7H, Basophils (%) (Auto) 1.1, Sodium Level 142, Potassium Level 3.8, Chloride Level 108H, Carbon Dioxide Level 26, Anion Gap 8, Blood Urea Nitrogen 20H, Creatinine 0.7, Estimat Glomerular Filtration Rate > 60, Glucose Level 103, Calcium Level 8.5, Total Bilirubin 0.7, Aspartate Amino Transf (AST/SGOT) 41H, Alanine Aminotransferase (ALT/SGPT) < 6L, Alkaline Phosphatase 359H, Total Protein 9.9H, Albumin 1.8L, Globulin 8.1, Albumin/Globulin Ratio 0.2L Current Medications Medications (Trade) Dose Ordered Sig/Lucy Route PRN Reason Start Time Stop Time Status Last Admin Dose Admin Acetaminophen (Tylenol) 650 mg Q4H PRN GT Mild Pain, Temp >100.5 05/16/20 17:45 06/15/20 17:44 05/18/20 09:16 Acetaminophen/ Hydrocodone Bitart (Davis 5/325) 1 tab Q8H PRN GT For Pain 05/16/20 19:45 05/23/20 19:44 Al Hydroxide/Mg Hydroxide (Mylanta) 30 ml Q4H PRN GT Abdominal cramps 05/16/20 17:45 12/20/20 17:44 Ascorbic Acid (Vitamin C) 500 mg DAILY GT 05/17/20 09:00 06/16/20 08:59 05/18/20 09:15 Clonidine HCl (Catapres Tab) 0.1 mg Q6H PRN GT SBP>160 or DBP>90 05/16/20 19:45 08/14/20 19:44 Diltiazem HCl (Cardizem Tab) 30 mg EVERY 8 HOURS GT 05/16/20 22:00 06/15/20 21:59 05/18/20 06:44 Diphenhydramine HCl (Benadryl) 25 mg Q6H PRN NG Itching 05/16/20 21:45 06/15/20 21:44 05/17/20 09:12 Epoetin Liam (Epoetin Liam-EPBX(NON ESRD)) 10,000 unit TUE-TUE-TUE SUBQ 05/16/20 21:00 08/14/20 20:59 05/16/20 21:50 Famotidine (Pepcid) 20 mg BID GT 05/17/20 09:00 08/15/20 08:59 05/18/20 09:15 Levothyroxine Sodium (Synthroid) 100 mcg DAILY@0630 GT 05/17/20 06:30 06/16/20 06:29 05/18/20 06:44 Metoprolol Tartrate (Lopressor) 12.5 mg Q12HR GT 05/16/20 21:00 08/14/20 20:59 05/17/20 21:10 Multivitamins (Multivitamins W/ Minerals 15ml Liquid) 15 ml DAILY GT 05/17/20 09:00 06/16/20 08:59 05/18/20 09:15 Pantoprazole (Protonix) 40 mg DAILY IVP 05/17/20 09:00 06/16/20 08:59 05/18/20 09:16 Piperacillin Sod/ Tazobactam Sod 3.375 gm/Sodium Chloride 110 ml @ 27.5 mls/hr Q8HR IVPB 05/16/20 22:00 05/23/20 21:59 05/18/20 06:45 Vancomycin HCl (Vanco pharmacy to dose) 1 ea DAILY PRN MISC Per rx protocol 05/16/20 17:45 06/15/20 17:44 Vancomycin HCl 750 mg/Sodium Chloride 275 ml @ 183.333 mls/hr Q12H IVPB 05/16/20 20:00 05/21/20 19:59 05/18/20 08:45 Zinc Sulfate (Zinc Sulfate) 220 mg DAILY GT 05/17/20 09:00 08/15/20 08:59 05/18/20 09:15 Assessment/Plan Assessment/Plan Anemia, status post blood transfusion history of UTI Chronic respiratory failure , ventilator dependent with tracheostomy status Dysphagia, feeding by G-tube History of sepsis Decubitus skin ulcer present on admission Chronic dermatitis Hypotension pericardial effusion elevated CRP PLAN Transfused with improved HH gi eval maintain snf meds nutrition care reviewed vent support repeat CT chest obtain echo impression, plan, and exam edited and reviewed in detail care discussed with Stevenson Emerson MD May 18, 2020 10:02
--- NOTE | 2020-05-18 11:00 | NUR ---
NURSE NOTES: Dr. Medina at the bedside assessed the patient. Notified abnormal lab and the patient's agitation No new order at this time. Will closely monitor the patient. Will continue plan of care.
--- NOTE | 2020-05-18 11:08 | NUR ---
CASE MANAGEMENT:REVIEW 05/18/20 SI: SYMPTOMATIC ANEMIA.S/P 3 UNITS PRBC'S BILATERAL PNA. TRACH/VENT/GTUBE 100.6 104 14 108/73 100% ON VENT SUPPORT W/36% FIO2 H/H=12.1/39.0 BUN+20 IS: IV ZOSYN Q8HRS IV VANCOMYCIN Q12 PEPCID GT BID ZINC GT QD VIT C GT QD SYNTHROID GT QD CARDIZEM GT Q8HRS IV PROTONIX QD LOPRESSOR GT Q12 : SDU DCP: FROM [facility] PLAN: CT ABD/PELVIS
--- NOTE | 2020-05-18 11:22 | Infectious Diseases Prog Note ---
Assessment/Plan Assessment/Plan antibiotics : vancomycin iv, zosyn A 1. pneumonia 2. breast cancer 3. respiratory failure s/p tracheostomy 4. 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 continue iv vancomycin, zosyn 2. will follow up cultures Subjective ROS Limited/Unobtainable: Yes Allergies: Coded Allergies: No Known Allergies (Unverified , 02/09/20) Objective Last 24 Hour Vital Signs Date Time Temp Pulse Resp B/P (MAP) Pulse Ox O2 Delivery O2 Flow Rate FiO2 05/18/20 09:46 99.3 05/18/20 09:00 99 108/73 05/18/20 08:55 104 05/18/20 08:00 100.6 99 14 108/73 (85) 100 05/18/20 07:29 92 18 36 05/18/20 06:44 105 123/78 05/18/20 04:00 99.1 93 18 123/78 (93) 100 05/18/20 04:00 36 05/18/20 04:00 Mechanical Ventilator 05/18/20 04:00 105 05/18/20 02:50 98 16 36 05/18/20 00:00 106 05/18/20 00:00 Mechanical Ventilator 05/18/20 00:00 36 05/18/20 00:00 98.2 118 18 127/77 (94) 100 05/17/20 23:10 95 16 36 05/17/20 21:10 96 123/64 05/17/20 21:10 98 123/64 05/17/20 20:00 Mechanical Ventilator 05/17/20 20:00 92 05/17/20 20:00 99.5 98 18 123/64 (83) 100 05/17/20 20:00 36 05/17/20 19:10 91 16 36 05/17/20 16:44 90 05/17/20 16:00 99.3 93 17 124/67 (86) 100 05/17/20 16:00 Mechanical Ventilator 05/17/20 15:54 36 05/17/20 15:05 90 14 36 05/17/20 14:34 85 114/64 05/17/20 13:00 85 05/17/20 12:00 98.4 94 18 114/64 (81) 100 05/17/20 12:00 105 05/17/20 11:59 Mechanical Ventilator Height (Feet): 5 Height (Inches): 2.00 Weight (Pounds): 125 HEENT: status post trach Respiratory/Chest: lungs clear Cardiovascular: normal rate, regular rhythm, no gallop/murmur Abdomen: soft, non tender, other - GT Extremities: no edema Microbiology Date/Time Source Procedure Growth Status 05/18/20 05:00 Stool Clostridium difficile Toxin Assay - Final Complete 05/16/20 16:53 Rectum VRE Culture - Final Enterococcus Faecium - Vre Complete 05/16/20 16:53 Nasal Nares MRSA Culture - Final Staphylococcus Aureus - Mrsa Complete Laboratory Tests Test 05/17/20 19:07 05/18/20 03:36 Vancomycin Level Trough 2.6 ug/mL (5.0-12.0) L White Blood Count 5.4 K/UL (4.8-10.8) Red Blood Count 4.21 M/UL (4.20-5.40) Hemoglobin 12.1 G/DL (12.0-16.0) # Hematocrit 39.0 % (37.0-47.0) # Mean Corpuscular Volume 93 FL (80-99) Mean Corpuscular Hemoglobin 28.7 PG (27.0-31.0) Mean Corpuscular Hemoglobin Concent 31.0 G/DL (32.0-36.0) L Red Cell Distribution Width 16.8 % (11.6-14.8) H Platelet Count 268 K/UL (150-450) Mean Platelet Volume 6.0 FL (6.5-10.1) L Neutrophils (%) (Auto) 75.8 % (45.0-75.0) H Lymphocytes (%) (Auto) 8.3 % (20.0-45.0) L Monocytes (%) (Auto) 7.0 % (1.0-10.0) Eosinophils (%) (Auto) 7.7 % (0.0-3.0) H Basophils (%) (Auto) 1.1 % (0.0-2.0) Sodium Level 142 MMOL/L (136-145) Potassium Level 3.8 MMOL/L (3.5-5.1) Chloride Level 108 MMOL/L (98-107) H Carbon Dioxide Level 26 MMOL/L (21-32) Anion Gap 8 mmol/L (5-15) Blood Urea Nitrogen 20 mg/dL (7-18) H Creatinine 0.7 MG/DL (0.55-1.30) Estimat Glomerular Filtration Rate > 60 mL/min (>60) Glucose Level 103 MG/DL (74-106) Calcium Level 8.5 MG/DL (8.5-10.1) Total Bilirubin 0.7 MG/DL (0.2-1.0) Aspartate Amino Transf (AST/SGOT) 41 U/L (15-37) H Alanine Aminotransferase (ALT/SGPT) < 6 U/L (12-78) L Alkaline Phosphatase 359 U/L (46-116) H Total Protein 9.9 G/DL (6.4-8.2) H Albumin 1.8 G/DL (3.4-5.0) L Globulin 8.1 g/dL Albumin/Globulin Ratio 0.2 (1.0-2.7) L Current Medications Medications (Trade) Dose Ordered Sig/Lucy Route PRN Reason Start Time Stop Time Status Last Admin Dose Admin Acetaminophen (Tylenol) 650 mg Q4H PRN GT Mild Pain, Temp >100.5 05/16/20 17:45 06/15/20 17:44 05/18/20 09:16 Acetaminophen/ Hydrocodone Bitart ([place] 5/325) 1 tab Q8H PRN GT For Pain 05/16/20 19:45 05/23/20 19:44 Al Hydroxide/Mg Hydroxide (Mylanta) 30 ml Q4H PRN GT Abdominal cramps 05/16/20 17:45 06/15/20 17:44 Ascorbic Acid (Vitamin C) 500 mg DAILY GT 05/17/20 09:00 06/16/20 08:59 05/18/20 09:15 Barium Sulfate (Readi-Cat 2) 450 ml NOW PRN ORAL Radiology Procedure 05/18/20 10:15 05/20/20 10:14 Clonidine HCl (Catapres Tab) 0.1 mg Q6H PRN GT SBP>160 or DBP>90 05/16/20 19:45 08/14/20 19:44 Diltiazem HCl (Cardizem Tab) 30 mg EVERY 8 HOURS GT 05/16/20 22:00 06/15/20 21:59 05/18/20 06:44 Diphenhydramine HCl (Benadryl) 25 mg Q6H PRN NG Itching 05/16/20 21:45 06/15/20 21:44 05/17/20 09:12 Epoetin Liam (Epoetin Liam-EPBX(NON ESRD)) 10,000 unit MON-TUE-TUE SUBQ 05/16/20 21:00 08/14/20 20:59 05/16/20 21:50 Famotidine (Pepcid) 20 mg BID GT 05/17/20 09:00 08/15/20 08:59 05/18/20 09:15 Levothyroxine Sodium (Synthroid) 100 mcg DAILY@0630 GT 05/17/20 06:30 06/16/20 06:29 05/18/20 06:44 Metoprolol Tartrate (Lopressor) 12.5 mg Q12HR GT 05/16/20 21:00 08/14/20 20:59 05/17/20 21:10 Multivitamins (Multivitamins W/ Minerals 15ml Liquid) 15 ml DAILY GT 05/17/20 09:00 06/16/20 08:59 05/18/20 09:15 Pantoprazole (Protonix) 40 mg DAILY IVP 05/17/20 09:00 06/16/20 08:59 05/18/20 09:16 Piperacillin Sod/ Tazobactam Sod 3.375 gm/Sodium Chloride 110 ml @ 27.5 mls/hr Q8HR IVPB 05/16/20 22:00 05/23/20 21:59 05/18/20 06:45 Vancomycin HCl (Vanco pharmacy to dose) 1 ea DAILY PRN MISC Per rx protocol 05/16/20 17:45 06/15/20 17:44 Vancomycin HCl 750 mg/Sodium Chloride 275 ml @ 183.333 mls/hr Q12H IVPB 05/16/20 20:00 05/21/20 19:59 05/18/20 08:45 Zinc Sulfate (Zinc Sulfate) 220 mg DAILY GT 05/17/20 09:00 08/15/20 08:59 05/18/20 09:15 Hong Camacho MD May 18, 2020 11:22
[2020-05-18 12:00] VITALS: BP_SYST 104; BP_SYST 115; BP_DIAS 57; BP_DIAS 78
--- NOTE | 2020-05-18 12:00 | NUR ---
NURSE NOTES: The patient is resting on the bed without acute distress or shortness of breath. Still agitated and resistant in medical care. Will closely monitor the patient. Will continue plan of care.
--- NOTE | 2020-05-18 14:00 | NUR ---
NURSE NOTES: Fever subsided. The patient is resting on the bed and tolerating tube feeding and vent setting well. Still agitated. Bed alarm on. Will closely monitor the patient. Will continue plan of care.
[2020-05-18 16:00] VITALS: BP 130/80
--- NOTE | 2020-05-18 16:00 | NUR ---
NURSE NOTES: Bed bath given to the patient. The patient tolerated well. Tolerating tube feeding and vent setting well. Will closely monitor the patient. Will continue plan of care.
--- NOTE | 2020-05-18 16:31 | General Progress Note ---
Subjective Allergies: Coded Allergies: No Known Allergies (Unverified , 02/09/20) Subjective Above noted d/w RN s/p transfusion Stools OB (+) message left with son to discuss Objective Last 24 Hour Vital Signs Date Time Temp Pulse Resp B/P (MAP) Pulse Ox O2 Delivery O2 Flow Rate FiO2 05/18/20 16:27 81 05/18/20 13:37 101 115/78 05/18/20 12:34 101 05/18/20 12:00 36 05/18/20 12:00 Mechanical Ventilator 05/18/20 12:00 97.9 99 14 115/78 (90) 100 05/18/20 10:31 108 22 50 05/18/20 09:46 99.3 05/18/20 09:00 99 108/73 05/18/20 08:55 104 05/18/20 08:00 Mechanical Ventilator 05/18/20 08:00 100.6 99 14 108/73 (85) 100 05/18/20 08:00 36 05/18/20 07:29 92 18 36 05/18/20 06:44 105 123/78 05/18/20 04:00 99.1 93 18 123/78 (93) 100 05/18/20 04:00 36 05/18/20 04:00 Mechanical Ventilator 05/18/20 04:00 105 05/18/20 02:50 98 16 36 05/18/20 00:00 106 05/18/20 00:00 Mechanical Ventilator 05/18/20 00:00 36 05/18/20 00:00 98.2 118 18 127/77 (94) 100 05/17/20 23:10 95 16 36 05/17/20 21:10 96 123/64 05/17/20 21:10 98 123/64 05/17/20 20:00 Mechanical Ventilator 05/17/20 20:00 92 05/17/20 20:00 99.5 98 18 123/64 (83) 100 05/17/20 20:00 36 05/17/20 19:10 91 16 36 05/17/20 16:44 90 Intake and Output 05/17/20 05/18/20 19:00 07:00 Intake Total 590 ml 410 ml Balance 590 ml 410 ml Intake Free Water 180 ml Tube Feeding 160 ml 230 ml Blood Product 250 ml 180 ml # Bowel Movements 1 Laboratory Tests 05/17/20 19:07: Vancomycin Level Trough 2.6L 05/18/20 03:36: White Blood Count 5.4, Red Blood Count 4.21, Hemoglobin 12.1#, Hematocrit 39.0#, Mean Corpuscular Volume 93, Mean Corpuscular Hemoglobin 28.7, Mean Corpuscular Hemoglobin Concent 31.0L, Red Cell Distribution Width 16.8H, Platelet Count 268, Mean Platelet Volume 6.0L, Neutrophils (%) (Auto) 75.8H, Lymphocytes (%) (Auto) 8.3L, Monocytes (%) (Auto) 7.0, Eosinophils (%) (Auto) 7.7H, Basophils (%) (Auto) 1.1, Sodium Level 142, Potassium Level 3.8, Chloride Level 108H, Carbon Dioxide Level 26, Anion Gap 8, Blood Urea Nitrogen 20H, Creatinine 0.7, Estimat Glomerular Filtration Rate > 60, Glucose Level 103, Calcium Level 8.5, Total Bilirubin 0.7, Aspartate Amino Transf (AST/SGOT) 41H, Alanine Aminotransferase (ALT/SGPT) < 6L, Alkaline Phosphatase 359H, Total Protein 9.9H, Albumin 1.8L, Globulin 8.1, Albumin/Globulin Ratio 0.2L Height (Feet): 5 Height (Inches): 2.00 Weight (Pounds): 125 Objective Thin woman in JAMES on r/o COVID isolation no distress NCAT (+) trach abd not distended Assessment/Plan Assessment/Plan: Assessment - Anemia, but with brown OB (+) stoolss - Fever, PNA - Respiratory failure - Dysphagia / GT - h/o BRCA - skin disorder Recommendations - transfuse PRN - will discuss with family - PPI - monitor labs - Priti Justice MD May 18, 2020 16:31
--- NOTE | 2020-05-18 16:41 | General Progress Note ---
Subjective Allergies: Coded Allergies: No Known Allergies (Unverified , 02/09/20) Subjective Above noted d/w RN -said stool OB (+) but contaminated from blood from excoriated perianal skin d/w son, Rigoberto, re reported colonoscopy a year ago - said will investigate and get back to me Objective Last 24 Hour Vital Signs Date Time Temp Pulse Resp B/P (MAP) Pulse Ox O2 Delivery O2 Flow Rate FiO2 05/18/20 16:27 81 05/18/20 13:37 101 115/78 05/18/20 12:34 101 05/18/20 12:00 36 05/18/20 12:00 Mechanical Ventilator 05/18/20 12:00 97.9 99 14 115/78 (90) 100 05/18/20 10:31 108 22 50 05/18/20 09:46 99.3 05/18/20 09:00 99 108/73 05/18/20 08:55 104 05/18/20 08:00 Mechanical Ventilator 05/18/20 08:00 100.6 99 14 108/73 (85) 100 05/18/20 08:00 36 05/18/20 07:29 92 18 36 05/18/20 06:44 105 123/78 05/18/20 04:00 99.1 93 18 123/78 (93) 100 05/18/20 04:00 36 05/18/20 04:00 Mechanical Ventilator 05/18/20 04:00 105 05/18/20 02:50 98 16 36 05/18/20 00:00 106 05/18/20 00:00 Mechanical Ventilator 05/18/20 00:00 36 05/18/20 00:00 98.2 118 18 127/77 (94) 100 05/17/20 23:10 95 16 36 05/17/20 21:10 96 123/64 05/17/20 21:10 98 123/64 05/17/20 20:00 Mechanical Ventilator 05/17/20 20:00 92 05/17/20 20:00 99.5 98 18 123/64 (83) 100 05/17/20 20:00 36 05/17/20 19:10 91 16 36 05/17/20 16:44 90 Intake and Output 05/17/20 05/18/20 19:00 07:00 Intake Total 590 ml 410 ml Balance 590 ml 410 ml Intake Free Water 180 ml Tube Feeding 160 ml 230 ml Blood Product 250 ml 180 ml # Bowel Movements 1 Laboratory Tests 05/17/20 19:07: Vancomycin Level Trough 2.6L 05/18/20 03:36: White Blood Count 5.4, Red Blood Count 4.21, Hemoglobin 12.1#, Hematocrit 39.0#, Mean Corpuscular Volume 93, Mean Corpuscular Hemoglobin 28.7, Mean Corpuscular Hemoglobin Concent 31.0L, Red Cell Distribution Width 16.8H, Platelet Count 268, Mean Platelet Volume 6.0L, Neutrophils (%) (Auto) 75.8H, Lymphocytes (%) (Auto) 8.3L, Monocytes (%) (Auto) 7.0, Eosinophils (%) (Auto) 7.7H, Basophils (%) (Auto) 1.1, Sodium Level 142, Potassium Level 3.8, Chloride Level 108H, Carbon Dioxide Level 26, Anion Gap 8, Blood Urea Nitrogen 20H, Creatinine 0.7, Estimat Glomerular Filtration Rate > 60, Glucose Level 103, Calcium Level 8.5, Total Bilirubin 0.7, Aspartate Amino Transf (AST/SGOT) 41H, Alanine Aminotransferase (ALT/SGPT) < 6L, Alkaline Phosphatase 359H, Total Protein 9.9H, Albumin 1.8L, G lobulin 8.1, Albumin/Globulin Ratio 0.2L Height (Feet): 5 Height (Inches): 2.00 Weight (Pounds): 125 Objective Thin woman in JAMES on r/o COVID isolation no distress (+) diffuse skin disease NCAT neck supple , (+) Trach CTA RR abd soft NT ND no edema Assessment/Plan Assessment/Plan: Assessment - Anemia, but with brown OB (+) stools - Fever, PNA - Respiratory failure - Dysphagia / GT - h/o BRCA - skin disorder Recommendations - transfuse PRN - await feedback from family - PPI - monitor labs - x Priti Sequeira MD May 18, 2020 16:41
--- NOTE | 2020-05-18 17:35 | Surgery Progress Note ---
Surgery Progress Note Subjective Additional Comments gi input appreciated no n/v breakdown sacral care nursing doing great job Objective Last 24 Hour Vital Signs Date Time Temp Pulse Resp B/P (MAP) Pulse Ox O2 Delivery O2 Flow Rate FiO2 05/18/20 16:27 81 05/18/20 16:00 98.2 102 14 130/80 (97) 100 05/18/20 16:00 50 05/18/20 16:00 Mechanical Ventilator 05/18/20 15:48 94 18 50 05/18/20 13:37 101 115/78 05/18/20 12:34 101 05/18/20 12:00 36 05/18/20 12:00 Mechanical Ventilator 05/18/20 12:00 97.9 99 14 115/78 (90) 100 05/18/20 10:31 108 22 50 05/18/20 09:46 99.3 05/18/20 09:00 99 108/73 05/18/20 08:55 104 05/18/20 08:00 Mechanical Ventilator 05/18/20 08:00 100.6 99 14 108/73 (85) 100 05/18/20 08:00 36 05/18/20 07:29 92 18 36 05/18/20 06:44 105 123/78 05/18/20 04:00 99.1 93 18 123/78 (93) 100 05/18/20 04:00 36 05/18/20 04:00 Mechanical Ventilator 05/18/20 04:00 105 05/18/20 02:50 98 16 36 05/18/20 00:00 106 05/18/20 00:00 Mechanical Ventilator 05/18/20 00:00 36 05/18/20 00:00 98.2 118 18 127/77 (94) 100 05/17/20 23:10 95 16 36 05/17/20 21:10 96 123/64 05/17/20 21:10 98 123/64 05/17/20 20:00 Mechanical Ventilator 05/17/20 20:00 92 05/17/20 20:00 99.5 98 18 123/64 (83) 100 05/17/20 20:00 36 05/17/20 19:10 91 16 36 I&O Intake and Output 05/17/20 05/18/20 19:00 07:00 Intake Total 590 ml 410 ml Balance 590 ml 410 ml Intake Free Water 180 ml Tube Feeding 160 ml 230 ml Blood Product 250 ml 180 ml # Bowel Movements 1 Dressing: saturated Cardiovascular: RSR Respiratory: decreased breath sounds Abdomen: non-tender, present bowel sounds, non-distended Extremities: no tenderness, no cyanosis Laboratory Tests Test 05/17/20 19:07 05/18/20 03:36 Vancomycin Level Trough 2.6 ug/mL (5.0-12.0) L White Blood Count 5.4 K/UL (4.8-10.8) Red Blood Count 4.21 M/UL (4.20-5.40) Hemoglobin 12.1 G/DL (12.0-16.0) # Hematocrit 39.0 % (37.0-47.0) # Mean Corpuscular Volume 93 FL (80-99) Mean Corpuscular Hemoglobin 28.7 PG (27.0-31.0) Mean Corpuscular Hemoglobin Concent 31.0 G/DL (32.0-36.0) L Red Cell Distribution Width 16.8 % (11.6-14.8) H Platelet Count 268 K/UL (150-450) Mean Platelet Volume 6.0 FL (6.5-10.1) L Neutrophils (%) (Auto) 75.8 % (45.0-75.0) H Lymphocytes (%) (Auto) 8.3 % (20.0-45.0) L Monocytes (%) (Auto) 7.0 % (1.0-10.0) Eosinophils (%) (Auto) 7.7 % (0.0-3.0) H Basophils (%) (Auto) 1.1 % (0.0-2.0) Sodium Level 142 MMOL/L (136-145) Potassium Level 3.8 MMOL/L (3.5-5.1) Chloride Level 108 MMOL/L (98-107) H Carbon Dioxide Level 26 MMOL/L (21-32) Anion Gap 8 mmol/L (5-15) Blood Urea Nitrogen 20 mg/dL (7-18) H Creatinine 0.7 MG/DL (0.55-1.30) Estimat Glomerular Filtration Rate > 60 mL/min (>60) Glucose Level 103 MG/DL (74-106) Calcium Level 8.5 MG/DL (8.5-10.1) Total Bilirubin 0.7 MG/DL (0.2-1.0) Aspartate Amino Transf (AST/SGOT) 41 U/L (15-37) H Alanine Aminotransferase (ALT/SGPT) < 6 U/L (12-78) L Alkaline Phosphatase 359 U/L (46-116) H Total Protein 9.9 G/DL (6.4-8.2) H Albumin 1.8 G/DL (3.4-5.0) L Globulin 8.1 g/dL Albumin/Globulin Ratio 0.2 (1.0-2.7) L Plan Problems: (1) Pneumonia (2) Symptomatic anemia (3) Decubitus skin ulcer Assessment & Plan: Pt presented on admission with Pressure Injuries, Trache ostomy,Alopecia, Generalized Hypopigmented Skin plaques. Few plaques noted to be open lesions but are pink and dry. Skin assessed under collar of trach and no areas of skin breakdown noted. Full thickness Pressure injury noted to R Buttocks(L)5.7cm x (W)1.7cm x (D)0.3cm. Base of wound is 90% beefy-red,10% slough. Borders are macerated . surrounding dry skin with hypopigmented plaques. Full thickness Pressure injury L Buttocks(L)4.6cm x (W)4.5cm. Base of wound has clusters wounds with intertwining bridges. Wounds have mixed slough and jack appearances. Small amt serous exudate noted. Surrounding dry hypopigmented skin plaques. Proximally and in close proximity skin is denuded. Small pustule with surrounding erythema noted L Hallux(L)0.5cm x (W)0.6cm. NO changes in skin temp periwound. An area of hyperpigmentation from previous wound noted to medial/posterior R Heel. L Heel is otherwise boggy with non-blanching erythema. Reabsorbed DTPI L Heel(L)2.2cm x (W)2cm. Dry brown eschar at base of wound. NO erythema or fluctuance periwound. Unstageable Pressure injury L lateral Malleolus(L)0.7cm x (W)0.9cm. Base of wound has 100% slough.edges dry and adherent to base of wound. No erythema,induration,or fluctuance periwound. Tx.Plan: Cleanse wounds R and L Buttocks with Saline. Apply Therahoney to wounds. Apply Moisture Barrier Paste Periwound. Cover with Optifoam drsg Daily and prn. Apply Betadine to wound R Hallux. Cover with Optifoam drsg every 3 days and prn. Apply Betadine to L lateral Malleolus. Cover with Optifoam drsg. Change every 3 days and prn. Apply Cavilon Skin Barrier to both heels. Cover each heel with Optifoam drsg. Change every 7 days and prn. Apply moisture barrier paste to R and L Buttocks. Cover with Optiform dressing Q3 days and prn. Apply Cavilon skin barrier both heels cover each with Optiform dressing change Q 7 days and prn. Apply Phytoplex antifungal lotion for itching three times/day Reposition at least every 2hours or as tolerated. Off-load heels with pillow. APM/ELIDIA Mattress overlay. DAILY ESTIMATED NEEDS: Needs based on Wound, critical care, wt loss, IT TECHNICIAN TF/ 52kg 25-35 kcals/kg 2055-5184 total kcals 1.25-2 g protein/kg 65-104 g total protein 25-30 mL/kg 4113-3698 total fluid mLs NUTRITION DIAGNOSIS: Increased kcal and pro needs r/t wound healing as evidenced by admitted w/ wounds @ BL buttocks, pending eval, suspected significant wt loss of 17lbs/10.5% in <3 months. CURRENT TF:Glucerna 1.5 @ 60ml/hr x 20 hrs ENTERAL NUTRITION RECOMMENDATIONS: Glucerna 1.5 @ 50ml/hr x 24 hrs to provide 1200ml, 1800 kcal, 99g pro, 911ml fr ee H2O - Rec 24 hour continuous TF to prevent hypoglycemia - Rec goal rate of 50ml/hr x 24 hrs - Flush per MD. HOB over 30 degrees ADDITIONAL RECOMMENDATIONS: 1) Wound care: add GT BID, continue Vit C and ZnSO4 2) Per SNF: 61 inches (5'1") and wt= 145lbs (05/02/20) -> daily calibrated bedscale wt 3) Monitor BGs, need for NISS- h/o DM 4) Monitor lytes, replete as needed Zia Chung May 18, 2020 17:35
--- NOTE | 2020-05-18 18:00 | NUR ---
NURSE NOTES: The patient is resting comfortably without acute distress or shortness of breath. Degree of agitation diminished at this time. Tolerating vent setting and tube feeding well. Increased tube feeding rate as the patient tolerated well. Will closely monitor the patient. Will continue plan of care.
--- NOTE | 2020-05-18 18:55 | NUR ---
NURSE HAND-OFF REPORT: Important Events on Shift: Fever, COVID 19 Swab pending Patient Status: Stable, Full code Diet: GTF Glucerna 1.2 @ 50mL/hr with goal of 60mL/hr Pending Orders: CT chest after COVID result Pending Results/Labs: COVID result Pending MD notification: N Latest Vital Signs: Temperature 98.2 , Pulse 81 , B/P 130 /80 , Respiratory Rate 14 , O2 SAT 100 , Mechanical Ventilator, O2 Flow Rate . Vital Sign Comment: Stable EKG Rhythm: Sinus Rhythm Rhythm change?: N MD Notified?: N - MD Response: Latest Hope Fall Score: 50 Fall Risk: High Risk Safety Measures: Call light Within Reach, Bed Alarm Zone 1, Side Rails Side Rails x2, Bed position Low and Locked. Fall Precautions: Yellow Socks Yellow Gown Door Sign Patient Fall Education Report given to MAGI Herbert. The patient is stable at this time. Endorsed plan of care.
--- NOTE | 2020-05-18 19:35 | NUR ---
NURSE NOTES: Received report MAGI Hemphill. Pt is sleeping in bed in semi ashford's position. Pt has no signs of apparent respiratory distress. Pt on trach to vent- with setting as ordered. No signs of pain noted. SR in the threat monitoring analyst but there is episode of STAC per morning shift. HR- 92. Pt is resting well comfortably in bed. With LAC and RAC g20 still patent and intact. Bed in lowest position. Call light within reach. Continue to plan of care.
[2020-05-18 20:00] VITALS: BP 150/68
--- NOTE | 2020-05-18 20:43 | Cardiology Report ---
APPROVED REPORT EKG Measurement Heart [id number] <Conclusion> Normal sinus rhythm Left posterior fascicular block Abnormal ECG
--- NOTE | 2020-05-18 22:00 | NUR ---
NURSE NOTES: Spoke to Alireza from CT scan, per Alireza thet can do the CT scan but if they can have the result of PCR swab test in the morning, they will probably wait till 8-9am to do the procedure. No preparation per Ct scan dept.
[2020-05-19] VITALS: BP 130/84
[2020-05-19] MEDS: DiphenhydrAMINE 25mg/10ml Elixir NG PRN (00:24)
[2020-05-19] MEDS: Acetaminophen 650mg/20.3ml GT PRN (00:37)
[2020-05-19 04:00] VITALS: BP 135/69
--- NOTE | 2020-05-19 04:00 | NUR ---
NURSE NOTES: Pt is seen lying in bed. Anxious. Sponge bath given. Denies pain. Not in apparent distres. Bed in lowest position, call light within reach. Continue to plan of care.
[2020-05-19] MEDS: Piperacillin/Tazobactam 3.375 GM in NS 110 ML IVPB SCH ×3 (05:12→22:41)
[2020-05-19] MEDS: dilTIAZem HCl 30mg tab GT SCH ×3 (05:42→22:43)
--- NOTE | 2020-05-19 06:05 | NUR ---
NURSE NOTES: Pt is seen lying in bed. Anxious.Denies pain. Not in apparent distres. Bed in lowest position, call light within reach. Continue to plan of care.
--- NOTE | 2020-05-19 07:15 | NUR ---
NURSE HAND-OFF REPORT: Important Events on Shift: Fever 100.6 Patient Status: Stable Diet: Glucerna 1.5 @ 60cc /hr- goal Pending Orders: None Pending Results/Labs: None Pending MD notification: None Latest Vital Signs: Temperature 98.1 , Pulse 108 , B/P 120 /68 , Respiratory Rate 20 , O2 SAT 100 , Mechanical Ventilator, O2 Flow Rate . Vital Sign Comment: Tachycardia EKG Rhythm: Sinus Tachycardia Rhythm change?: N MD Notified?: N - MD Response: Latest Hope Fall Score: 50 Fall Risk: High Risk Safety Measures: Call light Within Reach, Bed Alarm Zone 1, Side Rails Side Rails x2, Bed position Low and Locked. Fall Precautions: Yellow Socks Yellow Gown Door Sign Patient Fall Education Report given to [MAGI Damon].
--- NOTE | 2020-05-19 07:20 | NUR ---
NURSE NOTES: Received report from MAGI Herbert. Pt is lying in bed awake, alert x 2-3, not in distress, nonverbal but communicates by facial expression and body language. Constantly scratching. Trach to vent tolerating setting of AC 14, TV 550, FiO2 50%, PEEP 5 saturating 98-100%. Gtube is intact and patent running Glucerna 1.5 @ 50cc/hr. with goal of 60cc/hr. Rectal tube is intact and patent. Vann catheter is intact and patent draining yellowish urine. Bed is locked and in lowest position, bed alarm on, call light is with the patient. Will continue to monitor pt. Will continue with the plan of care.
[2020-05-19 07:47] LABS: HEMATOCRIT 33.3 % (37.0-47.0); HEMOGLOBIN 10.5 G/DL (12.0-16.0); LYMPHOCYTES % (AUTO) 10.5 % (20.0-45.0); MEAN CORPUSCULAR VOLUME 92 FL (80-99); MONOCYTES % (AUTO) 4.6 % (1.0-10.0); PLATELET COUNT 227 K/UL (150-450); RED CELL DISTRIBUTION WIDTH 17.4 % (11.6-14.8); WHITE BLOOD COUNT 4.9 K/UL (4.8-10.8)
[2020-05-19 07:52] LABS: ALANINE AMINOTRANSFERASE < 6 U/L (12-78); ALBUMIN 1.6 G/DL (3.4-5.0); ALBUMIN/GLOBULIN RATIO 0.2 (1.0-2.7); ALKALINE PHOSPHATASE 320 U/L (46-116); ANION GAP 5 mmol/L (5-15); ASPARTATE AMINO TRANSFERASE 33 U/L (15-37); BILIRUBIN,TOTAL 0.6 MG/DL (0.2-1.0); BLOOD UREA NITROGEN 20 mg/dL (7-18); CALCIUM 8.1 MG/DL (8.5-10.1); CARBON DIOXIDE 28 MMOL/L (21-32); CHLORIDE 114 MMOL/L (98-107); CREATININE 0.7 MG/DL (0.55-1.30); POTASSIUM 3.4 MMOL/L (3.5-5.1); SODIUM 147 MMOL/L (136-145)
[2020-05-19 08:00] VITALS: BP 127/68
[2020-05-19] MEDS: Ascorbic Acid 500mg tab GT SCH (08:56)
[2020-05-19] MEDS: Metoprolol Tartrate 12.5mg TAB GT SCH ×2 (08:57→21:33)
[2020-05-19] MEDS: Zinc Sulfate 220mg GT SCH (08:57)
[2020-05-19] MEDS: Multivitamins W/Minerals 15 ML UDC GT SCH (08:57)
[2020-05-19] MEDS: Pantoprazole Inj IVP SCH (08:57)
--- NOTE | 2020-05-19 10:28 | Cardiology Report ---
APPROVED REPORT EXAM: Two-dimensional and M-mode echocardiogram with Doppler and color Doppler. INDICATION Pericardial effusion M-Mode DIMENSIONS IVSd0.9 (0.7-1.1cm)Left Atrium (MM)3.5 (1.6-4.0cm) LVDd5.2 (3.5-5.6cm)Aortic Root2.4 (2.0-3.7cm) PWd0.8 (0.7-1.1cm)Aortic Cusp Exc.1.8 (1.5-2.0cm) IVSs1.4 cmEPSS1.0 (>1.0cm) LVDs3.9 (2.5-4.0cm) PWs1.2 cm <Conclusion> Technically difficult study due to patients wounds on chest. Study quality precludes accurate assessment of regional wall motion. Normal left ventricular chamber size. normal systolic function and wall motion. Left ventricular ejection fraction estimated to be 55 %. No evidence of left ventricular hypertrophy. Small circumferential pericardial effusion. No pleural effusion seen. All other cardiac chamber sizes are within normal limits. Focal aortic valve sclerosis with adequate cusp excursion. Thickened mitral valve leaflets with normal excursion. Mild mitral annulus and aortic root calcification. Pulmonic valve not well visualized. Normal tricuspid valve structure. IVC dilated at 2.3 cm without physiological collapse, suggestive of increased RA pressure. A color flow and spectral Doppler study was performed and revealed: No aortic regurgitation. Mild mitral regurgitation. Mitral inflow velocities indicates possible pseudo normalization pattern implying significant left ventricular diastolic dysfunction (Grade II). Trace tricuspid regurgitation. Tricuspid systolic velocities suggests peak right ventricular systolic pressure of 45 mmHg, consistent with moderate pulmonary hypertension. No pulmonic regurgitation present.
[2020-05-19 12:00] VITALS: BP 119/66
[2020-05-19] MEDS ORDERED: Vancomycin 500mg/D5W 110ml IVPB SCH ×2 (12:00)
--- NOTE | 2020-05-19 12:04 | Infectious Diseases Prog Note ---
Assessment/Plan Assessment/Plan antibiotics : vancomycin iv, zosyn A 1. pneumonia COVID 19 negative 2. breast cancer 3. respiratory failure s/p tracheostomy 4. 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 d/c iv vancomycin 2. continue zosyn 3. sputum culture 4. will follow up cultures Subjective ROS Limited/Unobtainable: Yes Allergies: Coded Allergies: No Known Allergies (Unverified , 02/09/20) Objective Last 24 Hour Vital Signs Date Time Temp Pulse Resp B/P (MAP) Pulse Ox O2 Delivery O2 Flow Rate FiO2 05/19/20 08:57 97 127/68 05/19/20 08:00 50 05/19/20 08:00 103 05/19/20 08:00 94.8 106 18 127/68 (87) 100 05/19/20 08:00 Mechanical Ventilator 05/19/20 06:41 108 20 50 05/19/20 05:42 103 120/68 05/19/20 04:00 98.1 106 15 135/69 (91) 100 05/19/20 04:00 Mechanical Ventilator 05/19/20 04:00 50 05/19/20 03:28 111 05/19/20 02:41 111 21 50 05/19/20 01:07 98.1 05/19/20 00:10 113 05/19/20 00:00 100.6 110 16 130/84 (99) 100 05/19/20 00:00 Mechanical Ventilator 05/19/20 00:00 50 05/18/20 22:52 118 16 50 05/18/20 22:21 110 140/78 05/18/20 20:26 105 150/68 05/18/20 20:00 50 05/18/20 20:00 99.0 115 15 150/68 (95) 100 05/18/20 20:00 Mechanical Ventilator 05/18/20 20:00 96 05/18/20 20:00 Mechanical Ventilator 05/18/20 18:43 88 14 50 05/18/20 16:27 81 05/18/20 16:00 98.2 102 14 130/80 (97) 100 05/18/20 16:00 50 05/18/20 16:00 Mechanical Ventilator 05/18/20 15:48 94 18 50 05/18/20 13:37 101 115/78 05/18/20 12:34 101 Height (Feet): 5 Height (Inches): 2.00 Weight (Pounds): 125 HEENT: status post trach Respiratory/Chest: lungs clear Cardiovascular: normal rate, regular rhythm, regularly irregular Abdomen: soft, non tender, other - GT Extremities: other - + edema Microbiology Date/Time Source Procedure Growth Status 05/18/20 05:00 Stool Clostridium difficile Toxin Assay - Final Complete 05/16/20 16:57 Nasopharynx Coronavirus COVID-19 PCR (RAD[facility]) - Final Complete 05/16/20 16:53 Rectum - Final NO CARBAPENEM-RESISTANT ENTEROBACTERI... Complete 05/16/20 16:53 Rectum VRE Culture - Final Enterococcus Faecium - Vre Complete 05/16/20 16:53 Nasal Nares MRSA Culture - Final Staphylococcus Aureus - Mrsa Complete Laboratory Tests Test 05/19/20 07:05 White Blood Count 4.9 K/UL (4.8-10.8) Red Blood Count 3.60 M/UL (4.20-5.40) L Hemoglobin 10.5 G/DL (12.0-16.0) L Hematocrit 33.3 % (37.0-47.0) L Mean Corpuscular Volume 92 FL (80-99) Mean Corpuscular Hemoglobin 29.1 PG (27.0-31.0) Mean Corpuscular Hemoglobin Concent 31.5 G/DL (32.0-36.0) L Red Cell Distribution Width 17.4 % (11.6-14.8) H Platelet Count 227 K/UL (150-450) Mean Platelet Volume 6.0 FL (6.5-10.1) L Neutrophils (%) (Auto) 71.0 % (45.0-75.0) Lymphocytes (%) (Auto) 10.5 % (20.0-45.0) L Monocytes (%) (Auto) 4.6 % (1.0-10.0) Eosinophils (%) (Auto) 13.0 % (0.0-3.0) H Basophils (%) (Auto) 1.0 % (0.0-2.0) Erythrocyte Sedimentation Rate 42 MM/HR (0-30) H Sodium Level 147 MMOL/L (136-145) H Potassium Level 3.4 MMOL/L (3.5-5.1) L Chloride Level 114 MMOL/L (98-107) H Carbon Dioxide Level 28 MMOL/L (21-32) Anion Gap 5 mmol/L (5-15) Blood Urea Nitrogen 20 mg/dL (7-18) H Creatinine 0.7 MG/DL (0.55-1.30) Estimat Glomerular Filtration Rate > 60 mL/min (>60) Glucose Level 137 MG/DL (74-106) H Calcium Level 8.1 MG/DL (8.5-10.1) L Total Bilirubin 0.6 MG/DL (0.2-1.0) Aspartate Amino Transf (AST/SGOT) 33 U/L (15-37) Alanine Aminotransferase (ALT/SGPT) < 6 U/L (12-78) L Alkaline Phosphatase 320 U/L (46-116) H C-Reactive Protein, Quantitative 15.0 mg/dL (0.00-0.90) H Total Protein 9.4 G/DL (6.4-8.2) H Albumin 1.6 G/DL (3.4-5.0) L Globulin 7.8 g/dL Albumin/Globulin Ratio 0.2 (1.0-2.7) L Vancomycin Level Trough 23.3 ug/mL (5.0-12.0) H Current Medications Medications (Trade) Dose Ordered Sig/Lucy Route PRN Reason Start Time Stop Time Status Last Admin Dose Admin Acetaminophen (Tylenol) 650 mg Q4H PRN GT Mild Pain, Temp >100.5 05/16/20 17:45 06/15/20 17:44 05/19/20 00:37 Acetaminophen/ Hydrocodone Bitart ([place] 5/325) 1 tab Q8H PRN GT For Pain 05/16/20 19:45 05/23/20 19:44 Al Hydroxide/Mg Hydroxide (Mylanta) 30 ml Q4H PRN GT Abdominal cramps 05/16/20 17:45 06/15/20 17:44 Ascorbic Acid (Vitamin C) 500 mg DAILY GT 05/17/20 09:00 06/16/20 08:59 05/19/20 08:56 Barium Sulfate (Readi-Cat 2) 450 ml NOW PRN ORAL Radiology Procedure 05/18/20 10:15 05/20/20 10:14 Clonidine HCl (Catapres Tab) 0.1 mg Q6H PRN GT SBP>160 or DBP>90 05/16/20 19:45 08/14/20 19:44 Diltiazem HCl (Cardizem Tab) 30 mg EVERY 8 HOURS GT 05/16/20 22:00 06/15/20 21:59 05/19/20 05:42 Diphenhydramine HCl (Benadryl) 25 mg Q6H PRN NG Itching 05/16/20 21:45 06/15/20 21:44 05/19/20 00:24 Epoetin Liam (Epoetin Liam-EPBX(NON ESRD)) 10,000 unit TUE-TUE-TUE SUBQ 05/16/20 21:00 08/14/20 20:59 05/16/20 21:50 Famotidine (Pepcid) 20 mg BID GT 05/17/20 09:00 08/15/20 08:59 05/19/20 08:57 Levothyroxine Sodium (Synthroid) 100 mcg DAILY@0630 GT 05/17/20 06:30 06/16/20 06:29 05/19/20 05:42 Metoprolol Tartrate (Lopressor) 12.5 mg Q12HR GT 05/16/20 21:00 08/14/20 20:59 05/19/20 08:57 Multivitamins (Multivitamins W/ Minerals 15ml Liquid) 15 ml DAILY GT 05/17/20 09:00 06/16/20 08:59 05/19/20 08:57 Pantoprazole (Protonix) 40 mg DAILY IVP 05/17/20 09:00 06/16/20 08:59 05/19/20 08:57 Piperacillin Sod/ Tazobactam Sod 3.375 gm/Sodium Chloride 110 ml @ 27.5 mls/hr Q8HR IVPB 05/16/20 22:00 05/23/20 21:59 05/19/20 05:12 Vancomycin HCl (Vanco pharmacy to dose) 1 ea DAILY PRN MISC Per rx protocol 05/16/20 17:45 06/15/20 17:44 Vancomycin HCl 500 mg/Dextrose 110 ml @ 110 mls/hr Q12HR@0000,1200 IVPB 05/19/20 12:00 05/24/20 11:59 05/19/20 11:53 Zinc Sulfate (Zinc Sulfate) 220 mg DAILY GT 05/17/20 09:00 08/15/20 08:59 05/19/20 08:57 Hong Camacho MD May 19, 2020 12:04
--- NOTE | 2020-05-19 12:18 | Pulmonology Progress Note ---
Subjective ROS Limited/Unobtainable: Yes Allergies: Coded Allergies: No Known Allergies (Unverified , 02/09/20) Subjective care noted anemic elevated CRP awaiting CT body Objective Last 24 Hour Vital Signs Date Time Temp Pulse Resp B/P (MAP) Pulse Ox O2 Delivery O2 Flow Rate FiO2 05/19/20 12:13 104 20 50 05/19/20 08:57 97 127/68 05/19/20 08:00 50 05/19/20 08:00 103 05/19/20 08:00 94.8 106 18 127/68 (87) 100 05/19/20 08:00 Mechanical Ventilator 05/19/20 06:41 108 20 50 05/19/20 05:42 103 120/68 05/19/20 04:00 98.1 106 15 135/69 (91) 100 05/19/20 04:00 Mechanical Ventilator 05/19/20 04:00 50 05/19/20 03:28 111 05/19/20 02:41 111 21 50 05/19/20 01:07 98.1 05/19/20 00:10 113 05/19/20 00:00 100.6 110 16 130/84 (99) 100 05/19/20 00:00 Mechanical Ventilator 05/19/20 00:00 50 05/18/20 22:52 118 16 50 05/18/20 22:21 110 140/78 05/18/20 20:26 105 150/68 05/18/20 20:00 50 05/18/20 20:00 99.0 115 15 150/68 (95) 100 05/18/20 20:00 Mechanical Ventilator 05/18/20 20:00 96 05/18/20 20:00 Mechanical Ventilator 05/18/20 18:43 88 14 50 05/18/20 16:27 81 05/18/20 16:00 98.2 102 14 130/80 (97) 100 05/18/20 16:00 50 05/18/20 16:00 Mechanical Ventilator 05/18/20 15:48 94 18 50 05/18/20 13:37 101 115/78 05/18/20 12:34 101 Intake and Output 05/18/20 05/19/20 19:00 07:00 Intake Total 730 ml 1104.166 ml Output Total 520 ml 500 ml Balance 210 ml 604.166 ml Intake Free Water 300 ml IV Total 504.166 ml Tube Feeding 430 ml 600 ml Output Urine Total 500 ml 500 ml Stool Total 20 ml # Bowel Movements 50 Objective WDWN NAD trach reduced breath sounds bilaterally without rhonchi or wheeze [id number] without MRG NABS nontender Gt no CCE nonfocal Microbiology Date/Time Source Procedure Growth Status 05/18/20 05:00 Stool Clostridium difficile Toxin Assay - Final Complete 05/16/20 16:57 Nasopharynx Coronavirus COVID-19 PCR ([facility]) - Final Complete 05/16/20 16:53 Rectum - Final NO CARBAPENEM-RESISTANT ENTEROBACTERI... Complete 05/16/20 16:53 Rectum VRE Culture - Final Enterococcus Faecium - Vre Complete 05/16/20 16:53 Nasal Nares MRSA Culture - Final Staphylococcus Aureus - Mrsa Complete Laboratory Tests 05/19/20 07:05: White Blood Count 4.9, Red Blood Count 3.60L, Hemoglobin 10.5L, Hematocrit 33.3L , Mean Corpuscular Volume 92, Mean Corpuscular Hemoglobin 29.1, Mean Corpuscular Hemoglobin Concent 31.5L, Red Cell Distribution Width 17.4H, Platelet Count 227, Mean Platelet Volume 6.0L, Neutrophils (%) (Auto) 71.0, Lymphocytes (%) (Auto) 10.5L, Monocytes (%) (Auto) 4.6, Eosinophils (%) (Auto) 13.0H, Basophils (%) (Auto) 1.0, Erythrocyte Sedimentation Rate 42H, Sodium Level 147H, Potassium Level 3.4L, Chloride Level 114H, Carbon Dioxide Level 28, Anion Gap 5, Blood Urea Nitrogen 20H, Creatinine 0.7, Estimat Glomerular Filtration Rate > 60, Glu cose Level 137H, Calcium Level 8.1L, Total Bilirubin 0.6, Aspartate Amino Transf (AST/SGOT) 33, Alanine Aminotransferase (ALT/SGPT) < 6L, Alkaline Phosphatase 320H, C-Reactive Protein, Quantitative 15.0H, Total Protein 9.4H, Albumin 1.6L, Globulin 7.8, Albumin/Globulin Ratio 0.2L, Vancomycin Level Trough 23.3H Current Medications Medications (Trade) Dose Ordered Sig/Lucy Route PRN Reason Start Time Stop Time Status Last Admin Dose Admin Acetaminophen (Tylenol) 650 mg Q4H PRN GT Mild Pain, Temp >100.5 05/16/20 17:45 06/15/20 17:44 05/19/20 00:37 Acetaminophen/ Hydrocodone Bitart ([place] 5/325) 1 tab Q8H PRN GT For Pain 05/16/20 19:45 05/23/20 19:44 Al Hydroxide/Mg Hydroxide (Mylanta) 30 ml Q4H PRN GT Abdominal cramps 05/16/20 17:45 06/15/20 17:44 Ascorbic Acid (Vitamin C) 500 mg DAILY GT 05/17/20 09:00 06/16/20 08:59 05/19/20 08:56 Barium Sulfate (Readi-Cat 2) 450 ml NOW PRN ORAL Radiology Procedure 05/18/20 10:15 05/20/20 10:14 Clonidine HCl (Catapres Tab) 0.1 mg Q6H PRN GT SBP>160 or DBP>90 05/16/20 19:45 08/14/20 19:44 Diltiazem HCl (Cardizem Tab) 30 mg EVERY 8 HOURS GT 05/16/20 22:00 06/15/20 21:59 05/19/20 05:42 Diphenhydramine HCl (Benadryl) 25 mg Q6H PRN NG Itching 05/16/20 21:45 06/15/20 21:44 05/19/20 00:24 Epoetin Liam (Epoetin Liam-EPBX(NON ESRD)) 10,000 unit TUE-TUE-TUE SUBQ 05/16/20 21:00 08/14/20 20:59 05/16/20 21:50 Famotidine (Pepcid) 20 mg BID GT 05/17/20 09:00 08/15/20 08:59 05/19/20 08:57 Levothyroxine Sodium (Synthroid) 100 mcg DAILY@0630 GT 05/17/20 06:30 06/16/20 06:29 05/19/20 05:42 Metoprolol Tartrate (Lopressor) 12.5 mg Q12HR GT 05/16/20 21:00 08/14/20 20:59 05/19/20 08:57 Multivitamins (Multivitamins W/ Minerals 15ml Liquid) 15 ml DAILY GT 05/17/20 09:00 06/16/20 08:59 05/19/20 08:57 Pantoprazole (Protonix) 40 mg DAILY IVP 05/17/20 09:00 06/16/20 08:59 05/19/20 08:57 Piperacillin Sod/ Tazobactam Sod 3.375 gm/Sodium Chloride 110 ml @ 27.5 mls/hr Q8HR IVPB 05/16/20 22:00 05/23/20 21:59 05/19/20 05:12 Zinc Sulfate (Zinc Sulfate) 220 mg DAILY GT 05/17/20 09:00 08/15/20 08:59 05/19/20 08:57 Assessment/Plan Assessment/Plan Anemia, status post blood transfusion history of UTI Chronic respiratory failure , ventilator dependent with tracheostomy status Dysphagia, feeding by G-tube History of sepsis Decubitus skin ulcer present on admission Chronic dermatitis Hypotension pericardial effusion small elevated CRP pulmonary hypertension PLAN Transfused with improved HH gi eval noted maintain snf meds nutrition care reviewed vent support CT body reviewed echo impression, plan, and exam edited and reviewed in detail care discussed with Stevenson Emerson MD May 19, 2020 12:18
--- NOTE | 2020-05-19 13:51 | Surgery Progress Note ---
Surgery Progress Note Subjective Additional Comments esr/crp improved no n/v pending CT C/A/P Objective Last 24 Hour Vital Signs Date Time Temp Pulse Resp B/P (MAP) Pulse Ox O2 Delivery O2 Flow Rate FiO2 05/19/20 13:34 99 119/66 05/19/20 12:13 104 20 50 05/19/20 12:00 106 05/19/20 12:00 Mechanical Ventilator 05/19/20 12:00 99.5 99 19 119/66 (83) 100 05/19/20 12:00 50 05/19/20 08:57 97 127/68 05/19/20 08:00 50 05/19/20 08:00 103 05/19/20 08:00 94.8 106 18 127/68 (87) 100 05/19/20 08:00 Mechanical Ventilator 05/19/20 06:41 108 20 50 05/19/20 05:42 103 120/68 05/19/20 04:00 98.1 106 15 135/69 (91) 100 05/19/20 04:00 Mechanical Ventilator 05/19/20 04:00 50 05/19/20 03:28 111 05/19/20 02:41 111 21 50 05/19/20 01:07 98.1 05/19/20 00:10 113 05/19/20 00:00 100.6 110 16 130/84 (99) 100 05/19/20 00:00 Mechanical Ventilator 05/19/20 00:00 50 05/18/20 22:52 118 16 50 05/18/20 22:21 110 140/78 05/18/20 20:26 105 150/68 05/18/20 20:00 50 05/18/20 20:00 99.0 115 15 150/68 (95) 100 05/18/20 20:00 Mechanical Ventilator 05/18/20 20:00 96 05/18/20 20:00 Mechanical Ventilator 05/18/20 18:43 88 14 50 05/18/20 16:27 81 05/18/20 16:00 98.2 102 14 130/80 (97) 100 05/18/20 16:00 50 05/18/20 16:00 Mechanical Ventilator 05/18/20 15:48 94 18 50 I&O Intake and Output 05/18/20 05/19/20 19:00 07:00 Intake Total 730 ml 1104.166 ml Output Total 520 ml 500 ml Balance 210 ml 604.166 ml Intake Free Water 300 ml IV Total 504.166 ml Tube Feeding 430 ml 600 ml Output Urine Total 500 ml 500 ml Stool Total 20 ml # Bowel Movements 50 Dressing: saturated Cardiovascular: RSR Respiratory: decreased breath sounds Abdomen: soft, non-tender, present bowel sounds Extremities: no tenderness, no cyanosis Laboratory Tests Test 05/19/20 07:05 White Blood Count 4.9 K/UL (4.8-10.8) Red Blood Count 3.60 M/UL (4.20-5.40) L Hemoglobin 10.5 G/DL (12.0-16.0) L Hematocrit 33.3 % (37.0-47.0) L Mean Corpuscular Volume 92 FL (80-99) Mean Corpuscular Hemoglobin 29.1 PG (27.0-31.0) Mean Corpuscular Hemoglobin Concent 31.5 G/DL (32.0-36.0) L Red Cell Distribution Width 17.4 % (11.6-14.8) H Platelet Count 227 K/UL (150-450) Mean Platelet Volume 6.0 FL (6.5-10.1) L Neutrophils (%) (Auto) 71.0 % (45.0-75.0) Lymphocytes (%) (Auto) 10.5 % (20.0-45.0) L Monocytes (%) (Auto) 4.6 % (1.0-10.0) Eosinophils (%) (Auto) 13.0 % (0.0-3.0) H Basophils (%) (Auto) 1.0 % (0.0-2.0) Erythrocyte Sedimentation Rate 42 MM/HR (0-30) H Sodium Level 147 MMOL/L (136-145) H Potassium Level 3.4 MMOL/L (3.5-5.1) L Chloride Level 114 MMOL/L (98-107) H Carbon Dioxide Level 28 MMOL/L (21-32) Anion Gap 5 mmol/L (5-15) Blood Urea Nitrogen 20 mg/dL (7-18) H Creatinine 0.7 MG/DL (0.55-1.30) Estimat Glomerular Filtration Rate > 60 mL/min (>60) Glucose Level 137 MG/DL (74-106) H Calcium Level 8.1 MG/DL (8.5-10.1) L Total Bilirubin 0.6 MG/DL (0.2-1.0) Aspartate Amino Transf (AST/SGOT) 33 U/L (15-37) Alanine Aminotransferase (ALT/SGPT) < 6 U/L (12-78) L Alkaline Phosphatase 320 U/L (46-116) H C-Reactive Protein, Quantitative 15.0 mg/dL (0.00-0.90) H Total Protein 9.4 G/DL (6.4-8.2) H Albumin 1.6 G/DL (3.4-5.0) L Globulin 7.8 g/dL Albumin/Globulin Ratio 0.2 (1.0-2.7) L Vancomycin Level Trough 23.3 ug/mL (5.0-12.0) H Plan Problems: (1) Pneumonia (2) Symptomatic anemia (3) Decubitus skin ulcer Assessment & Plan: Pt presented on admission with Pressure Injuries, Tracheostomy,Alopecia, Generalized Hypopigmented Skin plaques. Few plaques noted to be open lesions but are pink and dry. Skin assessed under collar of trach and no areas of skin breakdown noted. Full thickness Pressure injury noted to R Buttocks(L)5.7cm x (W)1.7cm x (D)0.3cm. Base of wound is 90% beefy-red,10% slough. Borders are macerated . surrounding dry skin with hypopigmented plaques. Full thickness Pressure injury L Buttocks(L)4.6cm x (W)4.5cm. Base of wound has clusters wounds with intertwining bridges. Wounds have mixed slough and jack appearances. Small amt serous exudate noted. Surrounding dry hypopigmented skin plaques. Proximally and in close proximity skin is denuded. Small pustule with surrounding erythema noted L Hallux(L)0.5cm x (W)0.6cm. NO changes in skin temp periwound. An area of hyperpigmentation from previous wound noted to medial/posterior R Heel. L Heel is otherwise boggy with non-blanching erythema. Reabsorbed DTPI L Heel(L)2.2cm x (W)2cm. Dry brown eschar at base of wound. NO erythema or fluctuance periwound. Unstageable Pressure injury L lateral Malleolus(L)0.7cm x (W)0.9cm. Base of wound has 100% slough.edges dry and adherent to base of wound. No erythema,induration,or fluctuance periwound. Tx.Plan: Cleanse wounds R and L Buttocks with Saline. Apply Therahoney to wounds. Apply Moisture Barrier Paste Periwound. Cover with Optifoam drsg Daily and prn. Apply Betadine to wound R Hallux. Cover with Optifoam drsg every 3 days and prn. Apply Betadine to L lateral Malleolus. Cover with Optifoam drsg. Change every 3 days and prn. Apply Cavilon Skin Barrier to both heels. Cover each heel with Optifoam drsg. Change every 7 days and prn. Apply moisture barrier paste to R and L Buttocks. Cover with Optiform dressing Q3 days and prn. Apply Cavilon skin barrier both heels cover each with Optiform dressing change Q 7 days and prn. Apply Phytoplex antifungal lotion for itching three times/day Reposition at least every 2hours or as tolerated. Off-load heels with pillow. APM/ELIDIA Mattress overlay. DAILY ESTIMATED NEEDS: Needs based on Wound, critical care, wt loss, MEDICAL STAFF SPECIALIST TF/ 52kg 25-35 kcals/kg 9338-5034 total kcals 1.25-2 g protein/kg 65-104 g total protein 25-30 mL/kg 5092-7392 total fluid mLs NUTRITION DIAGNOSIS: Increased kcal and pro needs r/t wound healing as evidenced by admitted w/ wounds @ BL buttocks, pending eval, suspected significant wt loss of 17lbs/10.5% in <3 months. CURRENT TF:Glucerna 1.5 @ 60ml/hr x 20 hrs ENTERAL NUTRITION RECOMMENDATIONS: Glucerna 1.5 @ 50ml/hr x 24 hrs to provide 1200ml, 1800 kcal, 99g pro, 911ml free H2O - Rec 24 hour continuous TF to prevent hypoglycemia - Rec goal rate of 50ml/hr x 24 hrs - Flush per MD. HOB over 30 degrees ADDITIONAL RECOMMENDATIONS: 1) Wound care: add GT BID, continue Vit C and ZnSO4 2) Per SNF: 61 inches (5'1") and wt= 145lbs (05/02/20) -> daily calibrated bedscale wt 3) Monitor BGs, need for NISS- h/o DM 4) Monitor lytes, replete as needed Zia Chung May 19, 2020 13:51
--- NOTE | 2020-05-19 14:53 | NUR ---
INSURANCE CLINICALS/REVIEWS/ HP FAXED TO [facility] [phone]
--- NOTE | 2020-05-19 15:04 | NUR ---
CASE MANAGEMENT:REVIEW 05/19/20 SI: BILATERAL PNA. ANEMIA TRACH/VENT/GTUBE 99.5 106 19 119/66 100% ON VENT SUPPORT W/50% FIO2 H/H-10.5/33.3 ESR+42 NA+147 IS: IV VANCO Q12 IV ZOSYN Q8HRS PEPCID GT BID ZINC GT QD VIT C GT QD LOPRESSOR GT Q12 EPOETIN SQ MWF : STEP DOWN UNIT DCP: FROM [facility] [place]
--- NOTE | 2020-05-19 15:20 | NUR ---
NURSE NOTES: CT without contrast of abdomen and CT done. Vitals remain stable. Will continue to monitor pt.
[2020-05-19 16:00] VITALS: BP 120/71
--- NOTE | 2020-05-19 17:16 | Diagnostic Imaging Report ---
CLINICAL INDICATION:Shortness of breath. Abdominal pain TECHNIQUE: Patient ingested amount of enteric contrast gastrostomy. No IV contrast, per referring physician request. Spiral acquisitions obtained through the chest, abdomen, and pelvis. Multiplanar reconstructions were generated. Total dose length product 331 mGycm. CTDIvol(s) 5 mGy. Radiation dose was minimized using automated exposure control COMPARISON: Chest CT dated 02/18/2020. No comparison abdomen pelvis studies FINDINGS Chest: Lungs diffusely demonstrate a mixture of mosaic attenuation and groundglass opacity with an upper lobe predominance, interspersed with areas of denser consolidation in a patchy distribution, the latter with a lower lobe predominance. There is also some interstitial septal thickening. There are bilateral pleural effusions. The heart is enlarged. There is a small pericardial effusion. There is bilateral hilar and mediastinal lymphadenopathy, with numerous enlarged mediastinal lymph nodes measuring up to 2 cm long axis dimension. There is also bilateral axillary adenopathy, with some infiltration of the axillary fat on the left. There is a tracheostomy. The thyroid is atrophic. The bones are unremarkable. When compared to the previous exam, there is considerably less pleural fluid. There is also less dense parenchymal consolidation. Background groundglass opacity is similar, however. The cardiomegaly and pericardial fluid were previously evident. The mediastinal lymphadenopathy is a new finding. The axillary nodes have also increased in size. There is much less edema of the subcutaneous fat Abdomen pelvis: There is a gastrostomy. Stomach and duodenum are otherwise unremarkable. The appendix is normal. No evidence of diverticulosis or diverticulitis. There is a small amount of free intraperitoneal fluid, predominantly in the pelvis. This is somewhat high in attenuation, measuring up to 21 Hounsfield units. No small bowel distention. No free intraperitoneal gas. There is a rectal tube in place. The lack of IV contrast limits assessment of the solid organs. The liver demonstrates a low-attenuation lesion in segment 6 which demonstrates nonspecific soft tissue attenuation, is ill-defined but measures approximately 2 cm in diameter. The liver is also enlarged. Patient is status post cholecystectomy. No biliary ductal dilatation. The pancreas is unremarkable. Spleen is mildly enlarged, measuring up to 13.5 cm long axis dimension. The adrenals and kidneys are unremarkable. There are prominent but not frankly enlarged retroperitoneal nodes. No pelvic mass or adenopathy. The uterus and adnexal structures are unremarkable. There is a Vann catheter in place. Small amount of air within the bladder presumably is related to the Vann catheterization. There is mild diffuse edema of the subcutaneous fat. The bones are unremarkable. IMPRESSION: Mediastinal and bilateral hilar lymphadenopathy. This is a new finding since previous study of 02/18/2020. This could indicate inflammatory lymphadenopathy, metastatic lymphadenopathy, or lymphoproliferative disorder. Splenomegaly. This is also probably new since the previous 02/18/2020 exam, although the spleen was incompletely included on that study Bilateral parenchymal opacities, as described. Most likely on the basis of pulmonary edema, although pneumonia also possible. This is less severe than on the previous study Low-attenuation right lobe liver lesion. This could represent primary neoplasm, metastatic neoplasm, benign hemangioma, among other possibilities. Consider further evaluation with multiphasic contrast enhanced CT Bilateral pleural effusions, much decreased since the previous exam Tracheostomy Diffuse edema of the subcutaneous fat, improved since 02/18/2020 Free intraperitoneal fluid. High attenuation of this indicates that it could be bloody Rectal tube Gastrostomy Vann catheter The CT scanner at [facility] is accredited by the [employer] and the scans are performed using protocols designed to limit radiation exposure to as low as reasonably achievable to attain images of sufficient resolution adequate for diagnostic evaluation.
--- NOTE | 2020-05-19 18:00 | NUR ---
NURSE NOTES: Pt is awake, not in distress. Vital remain stable. Pt is given complete bed bath. Beddings change, Dressing done. Pt tolerated. Vitals remain stable. Will continue to monitor pt.
--- NOTE | 2020-05-19 19:30 | NUR ---
NURSE NOTES: Received pt and report from MAGI Damon. Observed pt resting in bed with both eyes open. Pt is A/Ox3; able to make needs known. monitoring specialist is in placed; pt is ST (106 bpm). IV site intact, asymptomatic, and patent. Pt has a trach Shiley 8 and is connected to a ventilator; settings: AC 14, TV 550, FiO2 50%, and PEEP 5. Pt's O2 sat is at 100%. Pt has a GT in placed; intact and patent running Glucerna 1.5 @ 50mL/hr (goal of 60mL/hr), no residual noted. Vann and rectal tube intact and draining by gravity. Bed is in the lowest position and locked. Call light and bedside table is within reach. No signs/symptoms of acute distress noted. Will continue plan of care.
--- NOTE | 2020-05-19 19:47 | NUR ---
NURSE HAND-OFF REPORT: Important Events on Shift:CT of abdomen and chest done Patient Status: stable, full code Diet: Glucerna 1.5 @ 50cc/hr Pending Orders: N Pending Results/Labs:N Pending MD notification:N Latest Vital Signs: Temperature 96.7 , Pulse 100 , B/P 120 /71 , Respiratory Rate 18 , O2 SAT 100 , Mechanical Ventilator, O2 Flow Rate . Vital Sign Comment: stable EKG Rhythm: Sinus Tachycardia Rhythm change?: N MD Notified?: N - MD Response: Latest Hope Fall Score: 50 Fall Risk: High Risk Safety Measures: Call light Within Reach, Bed Alarm Zone 1, Side Rails Side Rails x2, Bed position Low and Locked. Fall Precautions: Yellow Socks Yellow Gown Door Sign Patient Fall Education Report given to gely Forbes RN.
[2020-05-19 20:00] VITALS: BP 116/69
--- NOTE | 2020-05-19 20:54 | NUR ---
NURSE NOTES: Notified Dr. Medina that pt's potassium was 3.4; Dr. Medina ordered KCL 20meq GT ONCE. Will note and carry out.
[2020-05-19] MEDS: Epoetin Alfa-EPBX (NON ESRD)10,000 unit/ml vial SUBQ SCH (21:32)
--- NOTE | 2020-05-19 23:16 | General Progress Note ---
Subjective Allergies: Coded Allergies: No Known Allergies (Unverified , 02/09/20) Subjective Above noted d/w RN -said stool OB (+) but contaminated from blood from excoriated perianal skin d/w son, Rigoberto, re reported colonoscopy a year ago - said will investigate and get back to me Objective Last 24 Hour Vital Signs Date Time Temp Pulse Resp B/P (MAP) Pulse Ox O2 Delivery O2 Flow Rate FiO2 05/19/20 22:53 110 16 50 05/19/20 22:43 109 126/78 05/19/20 21:33 114 116/69 05/19/20 20:00 50 05/19/20 20:00 Mechanical Ventilator 05/19/20 20:00 99.4 114 20 116/69 (85) 98 05/19/20 20:00 107 05/19/20 19:30 109 16 50 05/19/20 16:00 96.7 100 18 120/71 (87) 100 05/19/20 16:00 Mechanical Ventilator 05/19/20 16:00 50 05/19/20 15:37 108 05/19/20 14:55 107 18 50 05/19/20 13:34 99 119/66 05/19/20 12:13 104 20 50 05/19/20 12:00 106 05/19/20 12:00 Mechanical Ventilator 05/19/20 12:00 99.5 99 19 119/66 (83) 100 05/19/20 12:00 50 05/19/20 08:57 97 127/68 05/19/20 08:00 50 05/19/20 08:00 103 05/19/20 08:00 94.8 106 18 127/68 (87) 100 05/19/20 08:00 Mechanical Ventilator 05/19/20 06:41 108 20 50 05/19/20 05:42 103 120/68 05/19/20 04:00 98.1 106 15 135/69 (91) 100 05/19/20 04:00 Mechanical Ventilator 05/19/20 04:00 50 05/19/20 03:28 111 05/19/20 02:41 111 21 50 05/19/20 01:07 98.1 05/19/20 00:10 113 05/19/20 00:00 100.6 110 16 130/84 (99) 100 05/19/20 00:00 Mechanical Ventilator 05/19/20 00:00 50 l Intake and Output 05/18/20 05/19/20 19:00 07:00 Intake Total 730 ml 1104.166 ml Output Total 520 ml 500 ml Balance 210 ml 604.166 ml Intake Free Water 300 ml IV Total 504.166 ml Tube Feeding 430 ml 600 ml Output Urine Total 500 ml 500 ml Stool Total 20 ml # Bowel Movements 50 Laboratory Tests 05/19/20 07:05: White Blood Count 4.9, Red Blood Count 3.60L, Hemoglobin 10.5L, Hematocrit 33.3L , Mean Corpuscular Volume 92, Mean Corpuscular Hemoglobin 29.1, Mean Corpuscular Hemoglobin Concent 31.5L, Red Cell Distribution Width 17.4H, Platelet Count 227, Mean Platelet Volume 6.0L, Neutrophils (%) (Auto) 71.0, Lymphocytes (%) (Auto) 10.5L, Monocytes (%) (Auto) 4.6, Eosinophils (%) (Auto) 13.0H, Basophils (%) (Auto) 1.0, Erythrocyte Sedimentation Rate 42H, Sodium Level 147H, Potassium Level 3.4L, Chloride Level 114H, Carbon Dioxide Level 28, Anion Gap 5, Blood Urea Nitrogen 20H, Creatinine 0.7, Estimat Glomerular Filtration Rate > 60, Glucose Level 137H, Calcium Level 8.1L, Total Bilirubin 0.6, Aspartate Amino Transf (AST/SGOT) 33, Alanine Aminotransferase (ALT/SGPT) < 6L, Alkaline Phosphatase 320H, C-Reactive Protein, Quantitative 15.0H, Total Protein 9.4H, Albumin 1.6L, Globulin 7.8, Albumin/Globulin Ratio 0.2L, Vancomycin Level Trough 23.3H Height (Feet): 5 Height (Inches): 2.00 Weight (Pounds): 125 Objective Thin woman in JAMES on r/o COVID isolation no distress (+) diffuse skin disease NCAT neck supple , (+) Trach CTA RR abd soft NT ND no edema Assessment/Plan Assessment/Plan: Assessment - Anemia, but with brown OB (+) stools - Fever, PNA - Respiratory failure - Dysphagia / GT - h/o BRCA - skin disorder Recommendations - transfuse PRN - await feedback from family - PPI - monitor labs - Priti Justice MD May 19, 2020 23:16
[2020-05-20] VITALS: BP 106/62
--- NOTE | 2020-05-20 01:32 | NUR ---
NURSE NOTES: Observed pt resting in bed with both eyes open. Pt is restless and keeps asking for water and ice. Pt is NPO. Provided oral care.
[2020-05-20 04:00] VITALS: BP 108/67
[2020-05-20 05:47] LABS: BASOPHILS % (AUTO) 0.9 % (0.0-2.0); EOSINOPHILS % (AUTO) 10.4 % (0.0-3.0); HEMATOCRIT 35.1 % (37.0-47.0); HEMOGLOBIN 10.4 G/DL (12.0-16.0); LYMPHOCYTES % (AUTO) 15.9 % (20.0-45.0); MEAN CORPUSCULAR VOLUME 95 FL (80-99); MONOCYTES % (AUTO) 7.2 % (1.0-10.0); NEUTROPHILS % (AUTO) 65.6 % (45.0-75.0); PLATELET COUNT 211 K/UL (150-450); RED BLOOD COUNT 3.69 M/UL (4.20-5.40); RED CELL DISTRIBUTION WIDTH 17.6 % (11.6-14.8); WHITE BLOOD COUNT 4.6 K/UL (4.8-10.8)
[2020-05-20] MEDS: Piperacillin/Tazobactam 3.375 GM in NS 110 ML IVPB SCH ×3 (05:56→21:20)
[2020-05-20] MEDS: dilTIAZem HCl 30mg tab GT SCH ×3 (05:56→21:20)
[2020-05-20 06:12] LABS: ALANINE AMINOTRANSFERASE 7 U/L (12-78); ALBUMIN 1.6 G/DL (3.4-5.0); ALBUMIN/GLOBULIN RATIO 0.2 (1.0-2.7); ALKALINE PHOSPHATASE 277 U/L (46-116); ANION GAP 5 mmol/L (5-15); ASPARTATE AMINO TRANSFERASE 31 U/L (15-37); BILIRUBIN,TOTAL 0.5 MG/DL (0.2-1.0); BLOOD UREA NITROGEN 21 mg/dL (7-18); CALCIUM 7.8 MG/DL (8.5-10.1); CARBON DIOXIDE 28 MMOL/L (21-32); CHLORIDE 118 MMOL/L (98-107); CREATININE 0.7 MG/DL (0.55-1.30); POTASSIUM 3.8 MMOL/L (3.5-5.1); SODIUM 151 MMOL/L (136-145)
--- NOTE | 2020-05-20 06:35 | NUR ---
NURSE NOTES: Notified Dr. Camacho that pt's COVID-19 PCR swab came back NOT DETECTED.
--- NOTE | 2020-05-20 07:25 | NUR ---
NURSE NOTES: Received pt report from MAGI Murphy. Pt. in bed, awake AOx3. Pt. able to make needs known. living specialist in place. IV site on L AC 20G patent and intact, with no signs of infection or infiltration. Pt. on Ventilator Shiley 8 AC 14 VT 550 FiO2 50% PEEP 5. Breathing is even and unlabored with no signs of respiratory distress. No pain or discomfort noted Pt. GT in place patent and intact on glucerna 1.5 @ 60mL/hr. Pt. with F/C 16 Fr draining well. Urine color yellow. Bed in lowest position, locked with side rails x2 up. Call light within reach.
--- NOTE | 2020-05-20 07:51 | NUR ---
NURSE HAND-OFF REPORT: Important Events on Shift: Pt's potassium was 3.4 last night. Administered ordered KCL 20 meq GT ONCE to pt. Patient Status: Stable Diet: Glucerna 1.5 Pending Orders: N Pending Results/Labs: AM Labs Pending MD notification: N Latest Vital Signs: Temperature 99.5 , Pulse 109 , B/P 129 /88 , Respiratory Rate 19 , O2 SAT 100 , Mechanical Ventilator, O2 Flow Rate . EKG Rhythm: Sinus Tachycardia Rhythm change?: N Latest Hope Fall Score: 50 Fall Risk: High Risk Safety Measures: Call light Within Reach, Bed Alarm Zone 1, Side Rails Side Rails x2, Bed position Low and Locked. Fall Precautions: Yellow Socks Yellow Gown Door Sign Patient Fall Education Report given to MAGI Aragon.
[2020-05-20 08:00] VITALS: BP 134/74
--- NOTE | 2020-05-20 08:31 | NUR ---
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 (CURRENT TF:Glucerna 1.5 @ 60ml/hr x 20 hrs) ENTERAL NUTRITION RECOMMENDATIONS: Glucerna 1.5 @ 55ml/hr x 22 hrs to provide 1210ml, 1815 kcal, 100g pro, 918ml free H2O - Rec 22 hour TF to prevent hypoglycemia - HOLD one hour before and after synthroid meds - Flush per MD. HOB over 30 degrees ADDITIONAL RECOMMENDATIONS: 1) Wound care: add GT BID, continue Vit C and ZnSO4 2) Per SNF: 61 inches (5'1") and wt= 145lbs (05/02/20) -> daily calibrated bedscale wt 3) Monitor BGs, need for NISS- h/o DM 4) Monitor lytes, replete as needed-> NA trending up, add water flushes 100ml q4-6 hrs to meet free fluid needs (without IVF) .
--- NOTE | 2020-05-20 08:39 | Pulmonology Progress Note ---
Subjective ROS Limited/Unobtainable: Yes Allergies: Coded Allergies: No Known Allergies (Unverified , 02/09/20) Subjective care noted anemic elevated CRP ++ lymphadenopathy enlarged spleen and liver lesion Objective Last 24 Hour Vital Signs Date Time Temp Pulse Resp B/P (MAP) Pulse Ox O2 Delivery O2 Flow Rate FiO2 05/20/20 07:20 76 12 50 05/20/20 05:56 109 129/88 05/20/20 04:00 118 05/20/20 04:00 Mechanical Ventilator 05/20/20 04:00 50 05/20/20 04:00 99.5 101 19 108/67 (81) 100 05/20/20 03:24 104 16 50 05/20/20 00:00 Mechanical Ventilator 05/20/20 00:00 98.2 100 20 106/62 (77) 100 05/20/20 00:00 97 05/19/20 22:53 110 16 50 05/19/20 22:43 109 126/78 05/19/20 21:33 114 116/69 05/19/20 20:00 50 05/19/20 20:00 Mechanical Ventilator 05/19/20 20:00 99.4 114 20 116/69 (85) 98 05/19/20 20:00 107 05/19/20 19:30 109 16 50 05/19/20 16:00 96.7 100 18 120/71 (87) 100 05/19/20 16:00 Mechanical Ventilator 05/19/20 16:00 50 05/19/20 15:37 108 05/19/20 14:55 107 18 50 05/19/20 13:34 99 119/66 05/19/20 12:13 104 20 50 05/19/20 12:00 106 05/19/20 12:00 Mechanical Ventilator 05/19/20 12:00 99.5 99 19 119/66 (83) 100 05/19/20 12:00 50 05/19/20 08:57 97 127/68 Intake and Output 05/19/20 05/20/20 19:00 07:00 Intake Total 700.0 ml 620 ml Output Total 500 ml Balance 200.0 ml 620 ml Intake Free Water 90 ml 100 ml IV Total 110.0 ml Tube Feeding 500 ml 520 ml Output Urine Total 500 ml Objective WDWN NAD trach reduced breath sounds bilaterally without rhonchi or wheeze [id number] without MRG NABS nontender Gt no CCE nonfocal Microbiology Date/Time Source Procedure Growth Status 05/18/20 05:00 Stool Clostridium difficile Toxin Assay - Final Complete Laboratory Tests 05/20/20 04:30: White Blood Count 4.6L, Red Blood Count 3.69L, Hemoglobin 10.4L, Hematocrit 35.1L, Mean Corpuscular Volume 95, Mean Corpuscular Hemoglobin 28.3, Mean Corpuscular Hemoglobin Concent 29.7L, Red Cell Distribution Width 17.6H, Platelet Count 211, Mean Platelet Volume 5.9L, Neutrophils (%) (Auto) 65.6, Lymphocytes (%) (Auto) 15.9L, Monocytes (%) (Auto) 7.2, Eosinophils (%) (Auto) 10.4H, Basophils (%) (Auto) 0.9, Sodium Level 151H, Potassium Level 3.8, Chloride Level 118H, Carbon Dioxide Level 28, Anion Gap 5, Blood Urea Nitrogen 21H, Creatinine 0.7, Estimat Glomerular Filtration Rate > 60, Glucose Level 128H , Calcium Level 7.8L, Total Bilirubin 0.5, Aspartate Amino Transf (AST/SGOT) 31, Alanine Aminotransferase (ALT/SGPT) 7L, Alkaline Phosphatase 277H, Total Protein 9.6H, Albumin 1.6L, Globulin 8.0, Albumin/Globulin Ratio 0.2L Current Medications Medications (Trade) Dose Ordered Sig/Lucy Route PRN Reason Start Time Stop Time Status Last Admin Dose Admin Acetaminophen (Tylenol) 650 mg Q4H PRN GT Mild Pain, Temp >100.5 05/16/20 17:45 06/15/20 17:44 05/19/20 00:37 Acetaminophen/ Hydrocodone Bitart ([place] 5/325) 1 tab Q8H PRN GT For Pain 05/16/20 19:45 05/23/20 19:44 Al Hydroxide/Mg Hydroxide (Mylanta) 30 ml Q4H PRN GT Abdominal cramps 05/16/20 17:45 06/15/20 17:44 Ascorbic Acid (Vitamin C) 500 mg DAILY GT 05/17/20 09:00 06/16/20 08:59 05/19/20 08:56 Barium Sulfate (Readi-Cat 2) 450 ml NOW PRN ORAL Radiology Procedure 05/18/20 10:15 05/20/20 10:14 Clonidine HCl (Catapres Tab) 0.1 mg Q6H PRN GT SBP>160 or DBP>90 05/16/20 19:45 08/14/20 19:44 Diltiazem HCl (Cardizem Tab) 30 mg EVERY 8 HOURS GT 05/16/20 22:00 06/15/20 21:59 05/20/20 05:56 Diphenhydramine HCl (Benadryl) 25 mg Q6H PRN NG Itching 05/16/20 21:45 06/15/20 21:44 05/19/20 00:24 Epoetin Liam (Epoetin Liam-EPBX(NON ESRD)) 10,000 unit TUE-TUE-TUE SUBQ 05/16/20 21:00 08/14/20 20:59 05/19/20 21:32 Famotidine (Pepcid) 20 mg BID GT 05/17/20 09:00 08/15/20 08:59 05/19/20 19:21 Levothyroxine Sodium (Synthroid) 100 mcg DAILY@0630 GT 05/17/20 06:30 06/16/20 06:29 05/20/20 05:57 Metoprolol Tartrate (Lopressor) 12.5 mg Q12HR GT 05/16/20 21:00 08/14/20 20:59 05/19/20 21:33 Multivitamins (Multivitamins W/ Minerals 15ml Liquid) 15 ml DAILY GT 05/17/20 09:00 06/16/20 08:59 05/19/20 08:57 Pantoprazole (Protonix) 40 mg DAILY ORAL 05/20/20 09:00 06/19/20 08:59 Piperacillin Sod/ Tazobactam Sod 3.375 gm/Sodium Chloride 110 ml @ 27.5 mls/hr Q8HR IVPB 05/16/20 22:00 05/23/20 21:59 05/20/20 05:56 Zinc Sulfate (Zinc Sulfate) 220 mg DAILY GT 05/17/20 09:00 08/15/20 08:59 05/19/20 08:57 Assessment/Plan Assessment/Plan Anemia, status post blood transfusion history of UTI Chronic respiratory failure , ventilator dependent with tracheostomy status Dysphagia, feeding by G-tube History of sepsis Decubitus skin ulcer present on admission Chronic dermatitis Hypotension pericardial effusion small elevated CRP pulmonary hypertension ++lymphadenopathy splenomegaly liver lesion PLAN heme/onc eval nutrition care reviewed vent support CT body reviewed reviewed echo update family once further d/w oncology impression, plan, and exam edited and reviewed in detail care discussed with Stevenson Emerson MD May 20, 2020 08:38
[2020-05-20] MEDS: Metoprolol Tartrate 12.5mg TAB GT SCH ×2 (09:02→21:19)
[2020-05-20] MEDS: Ascorbic Acid 500mg tab GT SCH (09:02)
[2020-05-20] MEDS: Multivitamins W/Minerals 15 ML UDC GT SCH (09:02)
[2020-05-20] MEDS: Zinc Sulfate 220mg GT SCH (09:02)
[2020-05-20] MEDS ORDERED: Omnipaque-300 100ml vial INJ PRN (11:00)
--- NOTE | 2020-05-20 11:04 | Surgery Progress Note ---
Surgery Progress Note Subjective Additional Comments CT reviewed +lesions new onc eval repeat ct with contrast pending Objective Last 24 Hour Vital Signs Date Time Temp Pulse Resp B/P (MAP) Pulse Ox O2 Delivery O2 Flow Rate FiO2 05/20/20 09:02 101 134/74 05/20/20 09:00 50 05/20/20 08:00 Mechanical Ventilator 05/20/20 08:00 96 05/20/20 08:00 99.5 101 18 134/74 (94) 100 05/20/20 07:20 76 12 50 05/20/20 05:56 109 129/88 05/20/20 04:00 118 05/20/20 04:00 Mechanical Ventilator 05/20/20 04:00 50 05/20/20 04:00 99.5 101 19 108/67 (81) 100 05/20/20 03:24 104 16 50 05/20/20 00:00 Mechanical Ventilator 05/20/20 00:00 98.2 100 20 106/62 (77) 100 05/20/20 00:00 97 05/19/20 22:53 110 16 50 05/19/20 22:43 109 126/78 05/19/20 21:33 114 116/69 05/19/20 20:00 50 05/19/20 20:00 Mechanical Ventilator 05/19/20 20:00 99.4 114 20 116/69 (85) 98 05/19/20 20:00 107 05/19/20 19:30 109 16 50 05/19/20 16:00 96.7 100 18 120/71 (87) 100 05/19/20 16:00 Mechanical Ventilator 05/19/20 16:00 50 05/19/20 15:37 108 05/19/20 14:55 107 18 50 05/19/20 13:34 99 119/66 05/19/20 12:13 104 20 50 05/19/20 12:00 106 05/19/20 12:00 Mechanical Ventilator 05/19/20 12:00 99.5 99 19 119/66 (83) 100 05/19/20 12:00 50 I&O Intake and Output 05/19/20 05/20/20 19:00 07:00 Intake Total 700.0 ml 620 ml Output Total 500 ml Balance 200.0 ml 620 ml Intake Free Water 90 ml 100 ml IV Total 110.0 ml Tube Feeding 500 ml 520 ml Output Urine Total 500 ml Cardiovascular: RSR, other Respiratory: decreased breath sounds, other Abdomen: non-tender, present bowel sounds, non-distended Extremities: no tenderness, no cyanosis Laboratory Tests Test 05/20/20 04:30 White Blood Count 4.6 K/UL (4.8-10.8) L Red Blood Count 3.69 M/UL (4.20-5.40) L Hemoglobin 10.4 G/DL (12.0-16.0) L Hematocrit 35.1 % (37.0-47.0) L Mean Corpuscular Volume 95 FL (80-99) Mean Corpuscular Hemoglobin 28.3 PG (27.0-31.0) Mean Corpuscular Hemoglobin Concent 29.7 G/DL (32.0-36.0) L Red Cell Distribution Width 17.6 % (11.6-14.8) H Platelet Count 211 K/UL (150-450) Mean Platelet Volume 5.9 FL (6.5-10.1) L Neutrophils (%) (Auto) 65.6 % (45.0-75.0) Lymphocytes (%) (Auto) 15.9 % (20.0-45.0) L Monocytes (%) (Auto) 7.2 % (1.0-10.0) Eosinophils (%) (Auto) 10.4 % (0.0-3.0) H Basophils (%) (Auto) 0.9 % (0.0-2.0) Sodium Level 151 MMOL/L (136-145) H Potassium Level 3.8 MMOL/L (3.5-5.1) Chloride Level 118 MMOL/L (98-107) H Carbon Dioxide Level 28 MMOL/L (21-32) Anion Gap 5 mmol/L (5-15) Blood Urea Nitrogen 21 mg/dL (7-18) H Creatinine 0.7 MG/DL (0.55-1.30) Estimat Glomerular Filtration Rate > 60 mL/min (>60) Glucose Level 128 MG/DL (74-106) H Calcium Level 7.8 MG/DL (8.5-10.1) L Total Bilirubin 0.5 MG/DL (0.2-1.0) Aspartate Amino Transf (AST/SGOT) 31 U/L (15-37) Alanine Aminotransferase (ALT/SGPT) 7 U/L (12-78) L Alkaline Phosphatase 277 U/L (46-116) H Total Protein 9.6 G/DL (6.4-8.2) H Albumin 1.6 G/DL (3.4-5.0) L Globulin 8.0 g/dL Albumin/Globulin Ratio 0.2 (1.0-2.7) L Hepatitis A IgM Antibody Pending Hepatitis B Surface Antigen Pending Hepatitis B Core IgM Antibody Pending Hepatitis C Antibody Pending HIV (1&2) Antibody Rapid Pending Plan Problems: (1) Pneumonia (2) Symptomatic anemia (3) Decubitus skin ulcer Assessment & Plan: Pt presented on admission with Pressure Injuries, Tracheostomy,Alopecia, Generalized Hypopigmented Skin plaques. Few plaques noted to be open lesions but are pink and dry. Skin assessed under collar of trach and no areas of skin breakdown noted. Full thickness Pressure injury noted to R Buttocks(L)5.7cm x (W)1.7cm x (D)0.3cm. Base of wound is 90% beefy-red,10% slough. Borders are macerated . surrounding dry skin with hypopigmented plaques. Full thickness Pressure injury L Buttocks(L)4.6cm x (W)4.5cm. Base of wound has clusters wounds with intertwining bridges. Wounds have mixed slough and jack appearances. Small amt serous exudate noted. Surrounding dry hypopigmented skin plaques. Proximally and in close proximity skin is denuded. Small pustule with surrounding erythema noted L Hallux(L)0.5cm x (W)0.6cm. NO changes in skin temp periwound. An area of hyperpigmentation from previous wound noted to medial/posterior R Heel. L Heel is otherwise boggy with non-blanching erythema. Reabsorbed DTPI L Heel(L)2.2cm x (W)2cm. Dry brown eschar at base of wound. NO erythema or fluctuance periwound. Unstageable Pressure injury L lateral Malleolus(L)0.7cm x (W)0.9cm. Base of wound has 100% slough.edges dry and adherent to base of wound. No erythema,induration,or fluctuance periwound. Tx.Plan: Cleanse wounds R and L Buttocks with Saline. Apply Therahoney to wounds. Apply Moisture Barrier Paste Periwound. Cover with Optifoam drsg Daily and prn. Apply Betadine to wound R Hallux. Cover with Optifoam drsg every 3 days and prn. Apply Betadine to L lateral Malleolus. Cover with Optifoam drsg. Change every 3 days and prn. Apply Cavilon Skin Barrier to both heels. Cover each heel with Optifoam drsg. Change every 7 days and prn. Apply moisture barrier paste to R and L Buttocks. Cover with Optiform dressing Q3 days and prn. Apply Cavilon skin barrier both heels cover each with Optiform dressing change Q 7 days and prn. Apply Phytoplex antifungal lotion for itching three times/day Reposition at least every 2hours or as tolerated. Off-load heels with pillow. APM/ELIDIA Mattress overlay. 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 CURRENT TF:Glucerna 1.5 @ 60ml/hr x 20 hrs ENTERAL NUTRITION RECOMMENDATIONS: Glucerna 1.5 @ 50ml/hr x 24 hrs to provide 1200ml, 1800 kcal, 99g pro, 911ml free H2O - Rec 24 hour continuous TF to prevent hypoglycemia - Rec goal rate of 50ml/hr x 24 hrs - Flush per MD. HOB over 30 degrees ADDITIONAL RECOMMENDATIONS: 1) Wound care: add GT BID, continue Vit C and ZnSO4 2) Per SNF: 61 inches (5'1") and wt= 145lbs (05/02/20) -> daily calibrated bedscale wt 3) Monitor BGs, need for NISS- h/o DM 4) Monitor lytes, replete as needed (4) Lymphadenopathy Assessment & Plan: Chest: Lungs diffusely demonstrate a mixture of mosaic attenuation and groundglass opacity with an upper lobe predominance, interspersed with areas of denser consolidation in a patchy distribution, the latter with a lower lobe predominance. There is also some interstitial septal thickening. There are bilateral pleural effusions. The heart is enlarged. There is a small pericardial effusion. There is bilateral hilar and mediastinal lymphadenopathy, with numerous enlarged mediastinal lymph nodes measuring up to 2 cm long axis dimension. There is also bilateral axillary adenopathy, with some infiltration of the axillary fat on the left. There is a tracheostomy. The thyroid is atrophic. The bones are unremarkable. When compared to the previous exam, there is considerably less pleural fluid. There is also less dense parenchymal consolidation. Background groundglass opacity is similar, however. The cardiomegaly and pericardial fluid were previously evident. The mediastinal lymphadenopathy is a new finding. The axillary nodes have also increased in size. There is much less edema of the subcutaneous fat Abdomen pelvis: There is a gastrostomy. Stomach and duodenum are otherwise unremarkable. The appendix is normal. No evidence of diverticulosis or diverticulitis. There is a small amount of free intraperitoneal fluid, predominantly in the pelvis. This is somewhat high in attenuation, measuring up to 21 Hounsfield units. No small bowel distention. No free intraperitoneal gas. There is a rectal tube in place. The lack of IV contrast limits assessment of the solid organs. The liver demonstrates a low-attenuation lesion in segment 6 which demonstrates nonspecific soft tissue attenuation, is ill-defined but measures approximately 2 cm in diameter. The liver is also enlarged. Patient is status post cholecystectomy. No biliary ductal dilatation. The pancreas is unremarkable. Spleen is mildly enlarged, measuring up to 13.5 cm long axis dimension. The adrenals and kidneys are unremarkable. There are prominent but not frankly enlarged retroperitoneal nodes. No pelvic mass or adenopathy. The uterus and adnexal structures are unremarkable. There is a Vann catheter in place. Small amount of air within the bladder presumably is related to the Vann catheterization. There is mild diffuse edema of the subcutaneous fat. The bones are unremarkable. IMPRESSION: Mediastinal and bilateral hilar lymphadenopathy. This is a new finding since previous study of 02/18/2020. This could indicate inflammatory lymphadenopathy, metastatic lymphadenopathy, or lymphoproliferative disorder. Splenomegaly. This is also probably new since the previous 02/18/2020 exam, although the spleen was incompletely included on that study Bilateral parenchymal opacities, as described. Most likely on the basis of pulmonary edema, although pneumonia also possible. This is less severe than on the previou s study Low-attenuation right lobe liver lesion. This could represent primary neoplasm, metastatic neoplasm, benign hemangioma, among other possibilities. Consider further evaluation with multiphasic contrast enhanced CT Bilateral pleural effusions, much decreased since the previous exam Tracheostomy Diffuse edema of the subcutaneous fat, improved since 02/18/2020 Free intraperitoneal fluid. High attenuation of this indicates that it could be bloody Rectal tube Gastrostomy Vann catheter (5) Liver mass Assessment & Plan: noted on CT pending repeat CT with contrast Zia Chung May 20, 2020 11:04
--- NOTE | 2020-05-20 11:15 | Infectious Diseases Prog Note ---
Assessment/Plan Assessment/Plan antibiotics : zosyn 20 - A 1. pneumonia COVID 19 negative 2. breast cancer 3. respiratory failure s/p tracheostomy 4. 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 continue zosyn 2 more days 2. will follow up cultures Subjective ROS Limited/Unobtainable: Yes Allergies: Coded Allergies: No Known Allergies (Unverified , 02/09/20) Objective Last 24 Hour Vital Signs Date Time Temp Pulse Resp B/P (MAP) Pulse Ox O2 Delivery O2 Flow Rate FiO2 05/20/20 09:02 101 134/74 05/20/20 09:00 50 05/20/20 08:00 Mechanical Ventilator 05/20/20 08:00 96 05/20/20 08:00 99.5 101 18 134/74 (94) 100 05/20/20 07:20 76 12 50 05/20/20 05:56 109 129/88 05/20/20 04:00 118 05/20/20 04:00 Mechanical Ventilator 05/20/20 04:00 50 05/20/20 04:00 99.5 101 19 108/67 (81) 100 05/20/20 03:24 104 16 50 05/20/20 00:00 Mechanical Ventilator 05/20/20 00:00 98.2 100 20 106/62 (77) 100 05/20/20 00:00 97 05/19/20 22:53 110 16 50 05/19/20 22:43 109 126/78 05/19/20 21:33 114 116/69 05/19/20 20:00 50 05/19/20 20:00 Mechanical Ventilator 05/19/20 20:00 99.4 114 20 116/69 (85) 98 05/19/20 20:00 107 05/19/20 19:30 109 16 50 05/19/20 16:00 96.7 100 18 120/71 (87) 100 05/19/20 16:00 Mechanical Ventilator 05/19/20 16:00 50 05/19/20 15:37 108 05/19/20 14:55 107 18 50 05/19/20 13:34 99 119/66 05/19/20 12:13 104 20 50 05/19/20 12:00 106 05/19/20 12:00 Mechanical Ventilator 05/19/20 12:00 99.5 99 19 119/66 (83) 100 05/19/20 12:00 50 Height (Feet): 5 Height (Inches): 2.00 Weight (Pounds): 125 HEENT: status post trach Respiratory/Chest: lungs clear Cardiovascular: normal rate, regular rhythm, no gallop/murmur Abdomen: soft, non tender, other - GT Extremities: other - + edema Microbiology Date/Time Source Procedure Growth Status 05/18/20 05:00 Stool Clostridium difficile Toxin Assay - Final Complete Laboratory Tests Test 05/20/20 04:30 White Blood Count 4.6 K/UL (4.8-10.8) L Red Blood Count 3.69 M/UL (4.20-5.40) L Hemoglobin 10.4 G/DL (12.0-16.0) L Hematocrit 35.1 % (37.0-47.0) L Mean Corpuscular Volume 95 FL (80-99) Mean Corpuscular Hemoglobin 28.3 PG (27.0-31.0) Mean Corpuscular Hemoglobin Concent 29.7 G/DL (32.0-36.0) L Red Cell Distribution Width 17.6 % (11.6-14.8) H Platelet Count 211 K/UL (150-450) Mean Platelet Volume 5.9 FL (6.5-10.1) L Neutrophils (%) (Auto) 65.6 % (45.0-75.0) Lymphocytes (%) (Auto) 15.9 % (20.0-45.0) L Monocytes (%) (Auto) 7.2 % (1.0-10.0) Eosinophils (%) (Auto) 10.4 % (0.0-3.0) H Basophils (%) (Auto) 0.9 % (0.0-2.0) Sodium Level 151 MMOL/L (136-145) H Potassium Level 3.8 MMOL/L (3.5-5.1) Chloride Level 118 MMOL/L (98-107) H Carbon Dioxide Level 28 MMOL/L (21-32) Anion Gap 5 mmol/L (5-15) Blood Urea Nitrogen 21 mg/dL (7-18) H Creatinine 0.7 MG/DL (0.55-1.30) Estimat Glomerular Filtration Rate > 60 mL/min (>60) Glucose Level 128 MG/DL (74-106) H Calcium Level 7.8 MG/DL (8.5-10.1) L Total Bilirubin 0.5 MG/DL (0.2-1.0) Aspartate Amino Transf (AST/SGOT) 31 U/L (15-37) Alanine Aminotransferase (ALT/SGPT) 7 U/L (12-78) L Alkaline Phosphatase 277 U/L (46-116) H Total Protein 9.6 G/DL (6.4-8.2) H Albumin 1.6 G/DL (3.4-5.0) L Globulin 8.0 g/dL Albumin/Globulin Ratio 0.2 (1.0-2.7) L Hepatitis A IgM Antibody Pending Hepatitis B Surface Antigen Pending Hepatitis B Core IgM Antibody Pending Hepatitis C Antibody Pending HIV (1&2) Antibody Rapid Pending Current Medications Medications (Trade) Dose Ordered Sig/Lucy Route PRN Reason Start Time Stop Time Status Last Admin Dose Admin Acetaminophen (Tylenol) 650 mg Q4H PRN GT Mild Pain, Temp >100.5 05/16/20 17:45 06/15/20 17:44 05/19/20 00:37 Acetaminophen/ Hydrocodone Bitart ([place] 5/325) 1 tab Q8H PRN GT For Pain 05/16/20 19:45 05/23/20 19:44 Al Hydroxide/Mg Hydroxide (Mylanta) 30 ml Q4H PRN GT Abdominal cramps 05/16/20 17:45 06/15/20 17:44 Ascorbic Acid (Vitamin C) 500 mg DAILY GT 05/17/20 09:00 06/16/20 08:59 05/20/20 09:02 Barium Sulfate (Readi-Cat 2) 450 ml NOW PRN ORAL Radiology Procedure 05/20/20 11:00 05/22/20 10:59 Clonidine HCl (Catapres Tab) 0.1 mg Q6H PRN GT SBP>160 or DBP>90 05/16/20 19:45 08/14/20 19:44 Diltiazem HCl (Cardizem Tab) 30 mg EVERY 8 HOURS GT 05/16/20 22:00 06/15/20 21:59 05/20/20 05:56 Diphenhydramine HCl (Benadryl) 25 mg Q6H PRN NG Itching 05/16/20 21:45 06/15/20 21:44 05/19/20 00:24 Epoetin Liam (Epoetin Liam-EPBX(NON ESRD)) 10,000 unit TUE-TUE-TUE SUBQ 05/16/20 21:00 08/14/20 20:59 05/19/20 21:32 Famotidine (Pepcid) 20 mg BID GT 05/17/20 09:00 08/15/20 08:59 05/20/20 09:01 Iohexol (OMNIPAQUE-300 100ml) 100 ml NOW PRN INJ Radiology Procedure 05/20/20 11:00 05/22/20 10:59 Levothyroxine Sodium (Synthroid) 100 mcg DAILY@0630 GT 05/17/20 06:30 06/16/20 06:29 05/20/20 05:57 Metoprolol Tartrate (Lopressor) 12.5 mg Q12HR GT 05/16/20 21:00 08/14/20 20:59 05/20/20 09:02 Multivitamins (Multivitamins W/ Minerals 15ml Liquid) 15 ml DAILY GT 05/17/20 09:00 06/16/20 08:59 05/20/20 09:02 Pantoprazole (Protonix) 40 mg DAILY ORAL 05/20/20 09:00 06/19/20 08:59 05/20/20 09:02 Piperacillin Sod/ Tazobactam Sod 3.375 gm/Sodium Chloride 110 ml @ 27.5 mls/hr Q8HR IVPB 05/16/20 22:00 05/23/20 21:59 05/20/20 05:56 Zinc Sulfate (Zinc Sulfate) 220 mg DAILY GT 05/17/20 09:00 08/15/20 08:59 05/20/20 09:02 Hong Camacho MD May 20, 2020 11:15
[2020-05-20 12:00] VITALS: BP 115/63
--- NOTE | 2020-05-20 14:25 | NUR ---
NURSE NOTES: Patient went downstairs with RT and RN for CT scan, came back with out incident, in stable condition. post procedure Vital taken BP- 115/73, HR 105, O2-100%, RR-20. Will continue to monitor.
--- NOTE | 2020-05-20 15:25 | NUR ---
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 99.5 HR 101 RR 15 B/P 115/63 AC 16 TV 550 FIO2 50% PEEP 5 WBC 4.6 NA 151 IS: ZOSYN IV CARDIZEM GT PEPCID GT STEP DOWN STATUS
--- NOTE | 2020-05-20 15:28 | NUR ---
WINDOWS ARCHITECT NOTES CLINICALS REVIEWED AND FAXED.
--- NOTE | 2020-05-20 15:49 | Diagnostic Imaging Report ---
Indication: Reason For Exam: ABD PAIN Technique: Precontrast spiral acquisitions obtained through the abdomen and pelvis. IV administration nonionic contrast. Arterial phase, venous phase, 5 and 10 minute delayed phase acquisitions obtained through the abdomen and pelvis. Multiplanar reconstructions were generated. Total dose length product 1182 mGycm. CTDIvol(s) 5 x 5, 4, 63 mGy. Radiation dose was minimized using automated exposure control Comparison: Reference made to a noncontrast CT chest abdomen and pelvis 05/19/2020 Findings: Precontrast images demonstrate a low attenuation area in segment 6 of the liver. This measures 3 x 2 cm in diameter. On the arterial phase images, this demonstrates questionable subtle peripheral nodular enhancement. However, on the venous phase images, this demonstrates a thin rim of peripheral enhancement and central low attenuation. Similar findings are demonstrated on the delayed phase images, without evidence of significant filling in. This isn't immediately adjacent to the periphery of the right kidney. No other liver lesions are demonstrated. Liver is somewhat enlarged. The right kidney demonstrates an ill-defined mixed, mostly low, attenuation lesion coming off of the lower pole. This is exophytic, demonstrates peripheral enhancement and central low enhancement. There is some fluid or inflammatory change tracking along Mika's fascia. There is also an ill-defined area of low-attenuation involving the upper pole of the right kidney, best appreciated on the venous phase images. There is a lesion of the left renal interpolar region which measures approximately 2.1 cm, which demonstrates peripheral enhancement and central low attenuation as well as a possible septation. There is a probable upper pole cyst. There are two wedge-shaped areas of peripheral low attenuation in the lower pole of the left kidney as well as an area in the renal sinus region. The bladder contains a Vann catheter. There is some gas within the bladder which is presumably related to the Vann catheterization. The spleen is again demonstrated to be mildly enlarged. The pancreas, adrenals are unremarkable. No retroperitoneal or mesenteric mass demonstrated. There are prominent but not frankly enlarged retroperitoneal lymph nodes. No pelvic mass or adenopathy. There is a rectal tube in place. Ascites fluid is seen in the pelvis and adjacent to the right hepatic lobe. There is a gastrostomy. The stomach is otherwise unremarkable. No small bowel distention. No free intraperitoneal gas. Infiltrates are seen at both lung bases. The heart is enlarged. Impression: Abnormal right kidney, with areas of low attenuation as described likely representing areas of nephritis. There is a complex lesion coming off the lower pole of the right kidney. This could represent a renal neoplasm, but findings are somewhat suspicious for a small abscess. Hepatic abnormality described previously is demonstrated to have mostly low attenuation with some rim enhancement. As this is contiguous with an area of apparent inflammatory change in the right kidney, this could represent a small liver abscess secondary to hepatic invasion of renal infection. This could also represent a complex cyst or an infected cyst. Given the contiguity to the right kidney, it is also possible but less likely that this represents an exophytic renal abscess indenting the liver. Abnormal low-attenuation areas in the left kidney likewise are suspicious for areas of multifocal nephritis. There is a complex low-attenuation lesion with rim enhancement and septation. This could represent a complicated cyst or could represent a small renal abscess. Cystic neoplasm also possible although less likely. Sonography may be useful to better characterize if clinically indicated. Bilateral basilar pulmonary parenchymal infiltrates, likely pneumonia or pulmonary edema secondary to congestive heart failure Trace left pleural effusion also noted Hepatomegaly Thyromegaly Ascites fluid Rectal tube and gastrostomy noted. Cardiomegaly Nonspecific prominent retroperitoneal lymph nodes The CT scanner at [facility] is accredited by the [employer] and the scans are performed using protocols designed to limit radiation exposure to as low as reasonably achievable to attain images of sufficient resolution adequate for diagnostic evaluation.
[2020-05-20 16:00] VITALS: BP 132/83
--- NOTE | 2020-05-20 19:21 | NUR ---
NURSE HAND-OFF REPORT: Important Events on Shift: CT ABD/PELVIS with contrast Done Patient Status: Stable Diet: Tube feeding Pending Orders: N/A Pending Results/Labs:N/A Pending MD notification: Latest Vital Signs: Temperature 99.3 , Pulse 89 , B/P 132 /83 , Respiratory Rate 17 , O2 SAT 100 , Mechanical Ventilator, O2 Flow Rate . Vital Sign Comment: Stable EKG Rhythm: Sinus Rhythm Rhythm change?: N MD Notified?: N - MD Response: Latest Hope Fall Score: 50 Fall Risk: High Risk Safety Measures: Call light Within Reach, Bed Alarm Zone 1, Side Rails Side Rails x2, Bed position Low and Locked. Fall Precautions: Yellow Socks Yellow Gown Door Sign Patient Fall Education Report given to Katherine/RN.
--- NOTE | 2020-05-20 19:22 | NUR ---
NURSE NOTES: Received pt AOX3; comfortable in bed; denies any pain; monitor tech in place; on ventilator; GT site on abdomen on enteral feeding Glucerna 1.5 elizabeth @ 60 ml/hr; tolerating well; remains with rectal tube in place; also with f/c 16 fr draining clear yellow urine; call light within reach; bed locked and in low position side railsx3; will continue to monitor.
[2020-05-20 20:00] VITALS: BP 147/77
--- NOTE | 2020-05-20 21:17 | General Progress Note ---
Subjective Allergies: Coded Allergies: No Known Allergies (Unverified , 02/09/20) Subjective Above noted no events COVID (-) d/w son again - states cannot find colonoscopy location, but it was done about a year ago son agreed to hold off on GI evaluation at this time given overall health advised to re-consider as oupatient, if recurrent anemia Objective Last 24 Hour Vital Signs Date Time Temp Pulse Resp B/P (MAP) Pulse Ox O2 Delivery O2 Flow Rate FiO2 05/20/20 20:00 97.0 105 20 147/77 (100) 100 107 05/20/20 19:02 89 17 50 05/20/20 16:00 50 05/20/20 16:00 Mechanical Ventilator 05/20/20 16:00 99.3 105 17 132/83 (99) 100 05/20/20 16:00 96 05/20/20 15:20 86 20 50 05/20/20 14:41 104 115/63 05/20/20 12:00 98.6 99 15 115/63 (80) 100 05/20/20 12:00 50 05/20/20 12:00 Mechanical Ventilator 05/20/20 12:00 104 05/20/20 10:40 83 17 50 05/20/20 09:02 101 134/74 05/20/20 09:00 50 05/20/20 08:00 Mechanical Ventilator 05/20/20 08:00 96 05/20/20 08:00 99.5 101 18 134/74 (94) 100 05/20/20 07:20 76 12 50 05/20/20 05:56 109 129/88 05/20/20 04:00 118 05/20/20 04:00 Mechanical Ventilator 05/20/20 04:00 50 05/20/20 04:00 99.5 101 19 108/67 (81) 100 05/20/20 03:24 104 16 50 05/20/20 00:00 Mechanical Ventilator 05/20/20 00:00 98.2 100 20 106/62 (77) 100 05/20/20 00:00 97 05/19/20 22:53 110 16 50 05/19/20 22:43 109 126/78 05/19/20 21:33 114 116/69 Intake and Output 05/19/20 05/20/20 19:00 07:00 Intake Total 700.0 ml 620 ml Output Total 500 ml Balance 200.0 ml 620 ml Intake Free Water 90 ml 100 ml IV Total 110.0 ml Tube Feeding 500 ml 520 ml Output Urine Total 500 ml Laboratory Tests 05/20/20 04:30: White Blood Count 4.6L, Red Blood Count 3.69L, Hemoglobin 10.4L, Hematocrit 35.1 L, Mean Corpuscular Volume 95, Mean Corpuscular Hemoglobin 28.3, Mean Corpuscular Hemoglobin Concent 29.7L, Red Cell Distribution Width 17.6H, Platelet Count 211, Mean Platelet Volume 5.9L, Neutrophils (%) (Auto) 65.6, Lymphocytes (%) (Auto) 15.9L, Monocytes (%) (Auto) 7.2, Eosinophils (%) (Auto) 10.4H, Basophils (%) (Auto) 0.9, Sodium Level 151H, Potassium Level 3.8, Chloride Level 118H, Carbon Dioxide Level 28, Anion Gap 5, Blood Urea Nitrogen 21H, Creatinine 0.7, Estimat Glomerular Filtration Rate > 60, Glucose Level 128H , Calcium Level 7.8L, Total Bilirubin 0.5, Aspartate Amino Transf (AST/SGOT) 31, Alanine Aminotransferase (ALT/SGPT) 7L, Alkaline Phosphatase 277H, Total Protein 9.6H, Albumin 1.6L, Globulin 8.0, Albumin/Globulin Ratio 0.2L, Hepatitis A IgM Antibody [Pending], Hepatitis B Surface Antigen [Pending], Hepatitis B Core IgM Antibody [Pending], Hepatitis C Antibody [Pending], HIV (1&2) Antibody Rapid Negative Height (Feet): 5 Height (Inches): 2.00 Weight (Pounds): 125 Objective Thin woman in [place] no distress (+) diffuse skin disease NCAT neck supple , (+) Trach CTA RR abd soft NT ND no edema Assessment/Plan Assessment/Plan: Assessment - Anemia, but with brown OB (+) stools - H&H stable - Fever, PNA - Respiratory failure - Dysphagia / GT - h/o BRCA - skin disorder Recommendations - transfuse PRN - conservative f/u per discussion with son - PPI - monitor labs - abx Priti Sequeira MD May 20, 2020 21:17
[2020-05-21] VITALS: BP 106/66
[2020-05-21 04:00] VITALS: BP 113/69
--- NOTE | 2020-05-21 04:00 | NUR ---
NURSE NOTES: Per library monitor, pt refused blood draw; phelobotomist will try again later in AM.
[2020-05-21] MEDS: dilTIAZem HCl 30mg tab GT SCH ×3 (06:04→22:27)
[2020-05-21] MEDS: Piperacillin/Tazobactam 3.375 GM in NS 110 ML IVPB SCH ×3 (06:05→21:01)
--- NOTE | 2020-05-21 06:32 | Consultation ---
History of Present Illness General Chief Complaint: Abnormal Labs Present Illness Allergies: Coded Allergies: No Known Allergies (Unverified , 02/09/20) Medication History Scheduled Amino Acids/Protein Hydrolys (Pro-Stat Liquid), 30 ML GT TWICE A DAY, (Reported) Cran/Vitc/Mannose/Inulin/Brom (Uti-Stat Liquid), 30 ML GT BID, (Reported) Diltiazem Hcl (Diltiazem Hcl), 30 MG GT Q8HR, (Reported) Epoetin Liam (Epogen), 10,000 UNIT SUBQ 3XW, (Reported) Famotidine* (Pepcid 20mg tablet*), 20 MG GT TWICE A DAY, (Reported) Levothyroxine Sodium* (Synthroid*), 100 MCG GT DAILY, (Reported) Metoprolol Tartrate* (Metoprolol Tartrate*), 12.5 MG GT EVERY 12 HOURS, (Reported) Multivitamin Liquid* (Multi-Delyn*), 15 ML GT DAILY, (Reported) Trimethoprim/Sulfamethoxazole (Bactrim Ds Tablet), 1 TAB GT TWICE A DAY, (Reported) Vit C/Ascorbate Ca/Ascorb Sod (Vitamin C 500 Mg/15 Ml Liquid), 500 MG GT DAILY, (Reported) Zinc Sulfate (Zinc Sulfate), 250 MG GT DAILY, (Reported) Scheduled PRN Clonidine Hcl* (Catapres*), 0.1 MG GT EVERY 6 HOURS PRN for For High Blood Pressure, (Reported) Diphenhydramine HCl (Benadryl), 25 MG GT BID PRN for Itching, (Reported) Hydrocodone Bit/Acetaminophen 5-325* ([place] 5-325 Tablet*), 1 TAB GT for Pain from Changing Dressing, (Reported) Discontinued Medications Acetaminophen 160MG/5ML* (Acetaminophen*), 20 ML ORAL Q4HR PRN for For Pain, (Reported) Discontinued Reason: Therapy completed Ascorbic Acid* (Vitamin C*), 500 MG GT DAILY, (Reported) Discontinued Reason: Prescription changed Ferrous Sulfate (Ferrous Sulfate), 7.5 ML GT THREE TIMES A DAY, (Reported) Discontinued Reason: Therapy completed Lansoprazole (Lansoprazole), 30 MG GT, (Reported) Discontinued Reason: Therapy completed Levothyroxine Sodium* (Synthorid*), 75 MCG ORAL DAILY, (Reported) Discontinued Reason: Prescription changed Loperamide Hcl (Loperamide), 2 MG GT, (Reported) Discontinued Reason: Therapy completed Midodrine (Midodrine HCl), 2.5 MG GT THREE TIMES A DAY, (Reported) Discontinued Reason: Therapy completed Patient History Healthcare decision maker Resuscitation status Advanced Directive on File Physical Exam Last 24 Hour Vital Signs Date Time Temp Pulse Resp B/P (MAP) Pulse Ox O2 Delivery O2 Flow Rate FiO2 05/21/20 06:04 117 145/92 05/21/20 04:00 112 05/21/20 04:00 Mechanical Ventilator 05/21/20 04:00 97.9 108 16 113/69 (84) 100 05/21/20 04:00 50 05/21/20 03:25 105 16 50 05/21/20 00:00 Mechanical Ventilator 05/21/20 00:00 99.5 106 18 106/66 (79) 100 05/21/20 00:00 109 05/20/20 23:46 83 18 50 05/20/20 21:20 111 147/77 05/20/20 21:19 111 147/77 05/20/20 20:00 97.0 105 20 147/77 (100) 100 107 05/20/20 20:00 50 05/20/20 20:00 Mechanical Ventilator 05/20/20 20:00 109 05/20/20 19:02 89 17 50 05/20/20 16:00 50 05/20/20 16:00 Mechanical Ventilator 05/20/20 16:00 99.3 105 17 132/83 (99) 100 05/20/20 16:00 96 05/20/20 15:20 86 20 50 05/20/20 14:41 104 115/63 05/20/20 12:00 98.6 99 15 115/63 (80) 100 05/20/20 12:00 50 05/20/20 12:00 Mechanical Ventilator 05/20/20 12:00 104 05/20/20 10:40 83 17 50 05/20/20 09:02 101 134/74 05/20/20 09:00 50 05/20/20 08:00 Mechanical Ventilator 05/20/20 08:00 96 05/20/20 08:00 99.5 101 18 134/74 (94) 100 05/20/20 07:20 76 12 50 Intake and Output 05/20/20 05/21/20 19:00 07:00 Intake Total 120 ml 750.0 ml Balance 120 ml 750.0 ml Intake Free Water 40 ml IV Total 110.0 ml Tube Feeding 120 ml 600 ml Height (Feet): 5 Height (Inches): 2.00 Weight (Pounds): 125 Medications Current Medications Medications (Trade) Dose Ordered Sig/Lucy Route PRN Reason Start Time Stop Time Status Last Admin Dose Admin Acetaminophen (Tylenol) 650 mg Q4H PRN GT Mild Pain, Temp >100.5 05/16/20 17:45 06/15/20 17:44 05/19/20 00:37 Acetaminophen/ Hydrocodone Bitart ([place] 5/325) 1 tab Q8H PRN GT For Pain 05/16/20 19:45 05/23/20 19:44 Al Hydroxide/Mg Hydroxide (Mylanta) 30 ml Q4H PRN GT Abdominal cramps 05/16/20 17:45 06/15/20 17:44 Ascorbic Acid (Vitamin C) 500 mg DAILY GT 05/17/20 09:00 06/16/20 08:59 05/20/20 09:02 Barium Sulfate (Readi-Cat 2) 450 ml NOW PRN ORAL Radiology Procedure 05/20/20 11:00 05/22/20 10:59 Clonidine HCl (Catapres Tab) 0.1 mg Q6H PRN GT SBP>160 or DBP>90 05/16/20 19:45 08/14/20 19:44 Diltiazem HCl (Cardizem Tab) 30 mg EVERY 8 HOURS GT 05/16/20 22:00 06/15/20 21:59 05/21/20 06:04 Diphenhydramine HCl (Benadryl) 25 mg Q6H PRN NG Itching 05/16/20 21:45 06/15/20 21:44 05/19/20 00:24 Epoetin Liam (Epoetin Liam-EPBX(NON ESRD)) 10,000 unit TUE-TUE-TUE SUBQ 05/16/20 21:00 08/14/20 20:59 05/19/20 21:32 Famotidine (Pepcid) 20 mg BID GT 05/17/20 09:00 08/15/20 08:59 05/20/20 17:45 Iohexol (OMNIPAQUE-300 100ml) 100 ml NOW PRN INJ Radiology Procedure 05/20/20 11:00 05/22/20 10:59 Levothyroxine Sodium (Synthroid) 100 mcg DAILY@0630 GT 05/17/20 06:30 06/16/20 06:29 05/21/20 06:04 Metoprolol Tartrate (Lopressor) 12.5 mg Q12HR GT 05/16/20 21:00 08/14/20 20:59 05/20/20 21:19 Multivitamins (Multivitamins W/ Minerals 15ml Liquid) 15 ml DAILY GT 05/17/20 09:00 06/16/20 08:59 05/20/20 09:02 Pantoprazole (Protonix) 40 mg DAILY ORAL 05/20/20 09:00 06/19/20 08:59 05/20/20 09:02 Piperacillin Sod/ Tazobactam Sod 3.375 gm/Sodium Chloride 110 ml @ 27.5 mls/hr Q8HR IVPB 05/16/20 22:00 05/23/20 21:59 05/21/20 06:05 Zinc Sulfate (Zinc Sulfate) 220 mg DAILY GT 05/17/20 09:00 08/15/20 08:59 05/20/20 09:02 Assessment/Plan Assessment/Plan: Hematology Consultation REQ MD: Ignacia Medina DOS: 05/21/2020 RFC: Anemia and lymphadenopathy HPI: 54-year-old female history of COPD who is trach and G-tube dependent for respiratory failure, breast cancer status post chemotherapy presents for anemia. Seen for anemia approximately 3 months ago requiring transfusion. Outpatient labs showed hemoglobin of 6.6. Also currently being treated for pneumonia according to accompanying records. Tested negative for COVID-19 on 05/14. Arrives with respiratory therapist on vent. Afebrile. Reports global weakness and fatigue. Denies pain or discomfort. Denies difficulty breathing. Here is s/p transfusion and heme consulted given breast cancer hx. 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 EOMI. Neck: Tracheostomy in place. Cardiovascular: Tachycardic. S1 and S2 normal. Resp: Vent dependent through tracheostomy. Abdomen: Abdomen is soft, nondistended. G-tube in place Skin: Diffuse hypopigmentation over the skin. Patient is itchy MSK: Normal tone and bulk. Moving all extremities. Neuro: Awake and alert. Mentating appropriately. Labs: reviewed Imaging: noted Assessment and Recs # Breast cancer, stage IV, on chemotherapy as outpatient --> obtain further records, order placed --> katie explain lymphadenopathy as seen on ct --> Ct repeated with contrast shows no significant lad # Pancytopenia is due to recent chemo and infection --> imaging has been reviewed, does have splenomegaly --> hep and hiv are neg --> imaging abd reviewed # Pneumonia with b/l infiltrates --> s/p abx --> per ID # Symptomatic anemia -> s/p tranfusion # Resp failure s/p trach/vent # Splenomegaly. 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
--- NOTE | 2020-05-21 07:20 | NUR ---
NURSE NOTES: Received report from Leidy Auguste RN. Pt is awake, alert 2-3, nonverbal but communicates via facial expression, not in distress. Tolerating vent setting of AC 14, TV 550, FiO2 50%, PEEP 5, and saturating 100%. Vital signs are within normal. G-tube is intact and patent and running Glucerna 1.5 @ 60cc/hr x 20hrs. IV in L AC 20G is intact and patent. Vann catheter is intact and patent and draining yellowish urine. Rectal tube is intact and patent. Bed is locked and in lowest position, bed alarm on, call light is with the pt., head of bed is elevated at all times. Will continue to monitor pt. Will continue with the plan of care.
--- NOTE | 2020-05-21 07:30 | NUR ---
NURSE HAND-OFF REPORT: Important Events on Shift: Physician consult with Dr. Mauricio for breast cancer and anemia, 24 hr urine electrophoresis and serum electrophoresis per Dr. Ivey; follow up with family when and where pt had chemotherapy, refused blood draw per tankman @ 0400 Patient Status: stable Diet: Glucerna 1.5 @ 60 cc/hr enteral feeding Pending Orders: 24 hr urine electrophoresis and serum electrophoresis Pending Results/Labs: 24 hr urine electrophoresis and serum electrophoresis Pending MD notification: n/a Latest Vital Signs: Temperature 97.9 , Pulse 117 , B/P 145 /92 , Respiratory Rate 16 , O2 SAT 100 , Mechanical Ventilator, O2 Flow Rate . Vital Sign Comment: stable EKG Rhythm: Sinus Tachycardia Rhythm change?: N MD Notified?: N - MD Response: Latest Hope Fall Score: 50 Fall Risk: High Risk Safety Measures: Call light Within Reach, Bed Alarm Zone 1, Side Rails Side Rails x2, Bed position Low and Locked. Fall Precautions: Yellow Socks Yellow Gown Door Sign Patient Fall Education Report given to MAGI Damon[].
--- NOTE | 2020-05-21 07:51 | General Progress Note ---
Subjective Allergies: Coded Allergies: No Known Allergies (Unverified , 02/09/20) Subjective Above noted no events c/o skin itching Objective Last 24 Hour Vital Signs Date Time Temp Pulse Resp B/P (MAP) Pulse Ox O2 Delivery O2 Flow Rate FiO2 05/21/20 06:04 117 145/92 05/21/20 04:00 112 05/21/20 04:00 Mechanical Ventilator 05/21/20 04:00 97.9 108 16 113/69 (84) 100 05/21/20 04:00 50 05/21/20 03:25 105 16 50 05/21/20 00:00 Mechanical Ventilator 05/21/20 00:00 99.5 106 18 106/66 (79) 100 05/21/20 00:00 109 05/20/20 23:46 83 18 50 05/20/20 21:20 111 147/77 05/20/20 21:19 111 147/77 05/20/20 20:00 97.0 105 20 147/77 (100) 100 107 05/20/20 20:00 50 05/20/20 20:00 Mechanical Ventilator 05/20/20 20:00 109 05/20/20 19:02 89 17 50 05/20/20 16:00 50 05/20/20 16:00 Mechanical Ventilator 05/20/20 16:00 99.3 105 17 132/83 (99) 100 05/20/20 16:00 96 05/20/20 15:20 86 20 50 05/20/20 14:41 104 115/63 05/20/20 12:00 98.6 99 15 115/63 (80) 100 05/20/20 12:00 50 05/20/20 12:00 Mechanical Ventilator 05/20/20 12:00 104 05/20/20 10:40 83 17 50 05/20/20 09:02 101 134/74 05/20/20 09:00 50 05/20/20 08:00 Mechanical Ventilator 05/20/20 08:00 96 05/20/20 08:00 99.5 101 18 134/74 (94) 100 Intake and Output 05/20/20 05/21/20 19:00 07:00 Intake Total 120 ml 810.0 ml Output Total 1100 ml Balance 120 ml -290.0 ml Intake Free Water 100 ml IV Total 110.0 ml Tube Feeding 120 ml 600 ml Output Urine Total 1100 ml Height (Feet): 5 Height (Inches): 2.00 Weight (Pounds): 125 Objective Thin woman in [place] no distress (+) diffuse skin disease NCAT neck supple , (+) Trach CTA RR abd soft NT ND, GT no edema Assessment/Plan Assessment/Plan: Assessment - Anemia, but with brown OB (+) stools - H&H stable - Fever, PNA - Respiratory failure - Dysphagia / GT - h/o BRCA - skin disorder Recommendations - transfuse PRN - conservative f/u per discussion with son - PPI - monitor labs - abx Priti Sequeira MD May 21, 2020 07:51
[2020-05-21 08:00] VITALS: BP 141/92
[2020-05-21] MEDS: Metoprolol Tartrate 12.5mg TAB GT SCH ×2 (08:41→20:59)
[2020-05-21] MEDS: Ascorbic Acid 500mg tab GT SCH (08:42)
[2020-05-21] MEDS: Zinc Sulfate 220mg GT SCH (08:42)
[2020-05-21] MEDS: DiphenhydrAMINE 25mg/10ml Elixir NG PRN (08:51)
[2020-05-21] MEDS: Multivitamins W/Minerals 15 ML UDC GT SCH (08:51)
[2020-05-21 09:39] LABS: BASOPHILS % (AUTO) 0.9 % (0.0-2.0); EOSINOPHILS % (AUTO) 6.6 % (0.0-3.0); HEMATOCRIT 35.2 % (37.0-47.0); HEMOGLOBIN 10.8 G/DL (12.0-16.0); LYMPHOCYTES % (AUTO) 14.8 % (20.0-45.0); MEAN CORPUSCULAR VOLUME 91 FL (80-99); MONOCYTES % (AUTO) 4.9 % (1.0-10.0); NEUTROPHILS % (AUTO) 72.8 % (45.0-75.0); PLATELET COUNT 211 K/UL (150-450); RED BLOOD COUNT 3.89 M/UL (4.20-5.40); RED CELL DISTRIBUTION WIDTH 18.1 % (11.6-14.8); WHITE BLOOD COUNT 6.5 K/UL (4.8-10.8)
[2020-05-21 09:56] LABS: ANION GAP 2 mmol/L (5-15); BLOOD UREA NITROGEN 20 mg/dL (7-18); CALCIUM 8.3 MG/DL (8.5-10.1); CARBON DIOXIDE 33 MMOL/L (21-32); CHLORIDE 115 MMOL/L (98-107); CREATININE 0.7 MG/DL (0.55-1.30); POTASSIUM 3.5 MMOL/L (3.5-5.1); SODIUM 150 MMOL/L (136-145)
[2020-05-21 10:38] LABS: ASPARTATE AMINO TRANSFERASE 34 U/L (15-37); BILIRUBIN,TOTAL 0.5 MG/DL (0.2-1.0)
[2020-05-21 10:39] LABS: ALBUMIN 1.8 G/DL (3.4-5.0); ALKALINE PHOSPHATASE 336 U/L (46-116)
[2020-05-21 10:40] LABS: ALANINE AMINOTRANSFERASE < 6 U/L (12-78)
[2020-05-21 10:41] LABS: ALBUMIN/GLOBULIN RATIO 0.2 (1.0-2.7)
--- NOTE | 2020-05-21 11:23 | Infectious Diseases Prog Note ---
Assessment/Plan Assessment/Plan antibiotics : zosyn 05.16.20 - A 1. gram negative pneumonia COVID 19 negative 2. breast cancer 3. respiratory failure s/p tracheostomy 4. ? 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 ? liver abscess P 1. continue zosyn 2. will follow up cultures Subjective ROS Limited/Unobtainable: Yes Allergies: Coded Allergies: No Known Allergies (Unverified , 02/09/20) Objective Last 24 Hour Vital Signs Date Time Temp Pulse Resp B/P (MAP) Pulse Ox O2 Delivery O2 Flow Rate FiO2 05/21/20 08:41 120 141/86 05/21/20 08:00 110 05/21/20 08:00 Mechanical Ventilator 05/21/20 08:00 50 05/21/20 08:00 98.6 111 18 141/92 (108) 100 05/21/20 07:14 96 16 50 05/21/20 06:04 117 145/92 05/21/20 04:00 112 05/21/20 04:00 Mechanical Ventilator 05/21/20 04:00 97.9 108 16 113/69 (84) 100 05/21/20 04:00 50 05/21/20 03:25 105 16 50 05/21/20 00:00 Mechanical Ventilator 05/21/20 00:00 99.5 106 18 106/66 (79) 100 05/21/20 00:00 109 05/20/20 23:46 83 18 50 05/20/20 21:20 111 147/77 05/20/20 21:19 111 147/77 05/20/20 20:00 97.0 105 20 147/77 (100) 100 107 05/20/20 20:00 50 05/20/20 20:00 Mechanical Ventilator 05/20/20 20:00 109 05/20/20 19:02 89 17 50 05/20/20 16:00 50 05/20/20 16:00 Mechanical Ventilator 05/20/20 16:00 99.3 105 17 132/83 (99) 100 05/20/20 16:00 96 05/20/20 15:20 86 20 50 05/20/20 14:41 104 115/63 05/20/20 12:00 98.6 99 15 115/63 (80) 100 11/24/20 12:00 50 05/20/20 12:00 Mechanical Ventilator 05/20/20 12:00 104 Height (Feet): 5 Height (Inches): 2.00 Weight (Pounds): 125 HEENT: status post trach Respiratory/Chest: lungs clear Cardiovascular: normal rate, regular rhythm, no gallop/murmur Abdomen: soft, non tender, other - GT Extremities: other - + edema Microbiology Date/Time Source Procedure Growth Status 05/20/20 03:40 Sputum Gram Stain - Final Resulted 05/20/20 03:40 Sputum Culture - Preliminary Gram Negative Bacillus 1 Gram Negative Bacillus 2 Resulted Laboratory Tests Test 05/21/20 09:00 White Blood Count 6.5 K/UL (4.8-10.8) Red Blood Count 3.89 M/UL (4.20-5.40) L Hemoglobin 10.8 G/DL (12.0-16.0) L Hematocrit 35.2 % (37.0-47.0) L Mean Corpuscular Volume 91 FL (80-99) Mean Corpuscular Hemoglobin 27.7 PG (27.0-31.0) Mean Corpuscular Hemoglobin Concent 30.5 G/DL (32.0-36.0) L Red Cell Distribution Width 18.1 % (11.6-14.8) H Platelet Count 211 K/UL (150-450) Mean Platelet Volume 6.1 FL (6.5-10.1) L Neutrophils (%) (Auto) 72.8 % (45.0-75.0) Lymphocytes (%) (Auto) 14.8 % (20.0-45.0) L Monocytes (%) (Auto) 4.9 % (1.0-10.0) Eosinophils (%) (Auto) 6.6 % (0.0-3.0) H Basophils (%) (Auto) 0.9 % (0.0-2.0) Sodium Level 150 MMOL/L (136-145) H Potassium Level 3.5 MMOL/L (3.5-5.1) Chloride Level 115 MMOL/L (98-107) H Carbon Dioxide Level 33 MMOL/L (21-32) H Anion Gap 2 mmol/L (5-15) L Blood Urea Nitrogen 20 mg/dL (7-18) H Creatinine 0.7 MG/DL (0.55-1.30) Estimat Glomerular Filtration Rate > 60 mL/min (>60) Glucose Level 115 MG/DL (74-106) H Calcium Level 8.3 MG/DL (8.5-10.1) L Total Bilirubin 0.5 MG/DL (0.2-1.0) Aspartate Amino Transf (AST/SGOT) 34 U/L (15-37) Alanine Aminotransferase (ALT/SGPT) < 6 U/L (12-78) L Alkaline Phosphatase 336 U/L (46-116) H Total Protein 10.4 G/DL (6.4-8.2) H Total Protein (PEP) Pending Albumin 1.8 G/DL (3.4-5.0) L Albumin (PEP) Pending Globulin 8.6 g/dL Globulin (PEP) Pending Albumin/Globulin Ratio 0.2 (1.0-2.7) L Moimm-0-Uvcadxoux Pending Tzprh-5-Aqtvpwtgp Pending Beta Globulins Pending Beta Gamma Globulin Pending PEP Abnormal Protein Bands Pending Protein Electrophoresis Interpret Pending Current Medications Medications (Trade) Dose Ordered Sig/Lucy Route PRN Reason Start Time Stop Time Status Last Admin Dose Admin Acetaminophen (Tylenol) 650 mg Q4H PRN GT Mild Pain, Temp >100.5 05/16/20 17:45 06/15/20 17:44 05/19/20 00:37 Acetaminophen/ Hydrocodone Bitart ([place] 5/325) 1 tab Q8H PRN GT For Pain 05/16/20 19:45 05/23/20 19:44 Al Hydroxide/Mg Hydroxide (Mylanta) 30 ml Q4H PRN GT Abdominal cramps 05/16/20 17:45 06/15/20 17:44 Ascorbic Acid (Vitamin C) 500 mg DAILY GT 05/17/20 09:00 06/16/20 08:59 05/21/20 08:42 Barium Sulfate (Readi-Cat 2) 450 ml NOW PRN ORAL Radiology Procedure 05/20/20 11:00 05/22/20 10:59 Clonidine HCl (Catapres Tab) 0.1 mg Q6H PRN GT SBP>160 or DBP>90 05/16/20 19:45 08/14/20 19:44 Diltiazem HCl (Cardizem Tab) 30 mg EVERY 8 HOURS GT 05/16/20 22:00 06/15/20 21:59 05/21/20 06:04 Diphenhydramine HCl (Benadryl) 25 mg Q6H PRN NG Itching 05/16/20 21:45 06/15/20 21:44 05/21/20 08:51 Epoetin Liam (Epoetin Liam-EPBX(NON ESRD)) 10,000 unit TUE-TUE-TUE SUBQ 05/16/20 21:00 08/14/20 20:59 05/19/20 21:32 Famotidine (Pepcid) 20 mg BID GT 05/17/20 09:00 08/15/20 08:59 05/21/20 08:42 Iohexol (OMNIPAQUE-300 100ml) 100 ml NOW PRN INJ Radiology Procedure 05/20/20 11:00 05/22/20 10:59 Levothyroxine Sodium (Synthroid) 100 mcg DAILY@0630 GT 05/17/20 06:30 06/16/20 06:29 05/21/20 06:04 Metoprolol Tartrate (Lopressor) 12.5 mg Q12HR GT 05/16/20 21:00 08/14/20 20:59 05/21/20 08:41 Multivitamins (Multivitamins W/ Minerals 15ml Liquid) 15 ml DAILY GT 05/17/20 09:00 06/16/20 08:59 05/21/20 08:51 Pantoprazole (Protonix) 40 mg DAILY ORAL 05/20/20 09:00 06/19/20 08:59 05/21/20 08:42 Piperacillin Sod/ Tazobactam Sod 3.375 gm/Sodium Chloride 110 ml @ 27.5 mls/hr Q8HR IVPB 05/16/20 22:00 05/23/20 21:59 05/21/20 06:05 Zinc Sulfate (Zinc Sulfate) 220 mg DAILY GT 05/17/20 09:00 08/15/20 08:59 05/21/20 08:42 Hong Camacho MD May 21, 2020 11:23
[2020-05-21 12:00] VITALS: BP 119/76
--- NOTE | 2020-05-21 13:49 | Pulmonology Progress Note ---
Subjective ROS Limited/Unobtainable: Yes Allergies: Coded Allergies: No Known Allergies (Unverified , 02/09/20) Subjective care noted anemic elevated CRP ++ lymphadenopathy enlarged spleen and liver lesion Objective Last 24 Hour Vital Signs Date Time Temp Pulse Resp B/P (MAP) Pulse Ox O2 Delivery O2 Flow Rate FiO2 05/21/20 08:41 120 141/86 05/21/20 08:00 110 05/21/20 08:00 Mechanical Ventilator 05/21/20 08:00 50 05/21/20 08:00 98.6 111 18 141/92 (108) 100 05/21/20 07:14 96 16 50 05/21/20 06:04 117 145/92 05/21/20 04:00 112 05/21/20 04:00 Mechanical Ventilator 05/21/20 04:00 97.9 108 16 113/69 (84) 100 05/21/20 04:00 50 05/21/20 03:25 105 16 50 05/21/20 00:00 Mechanical Ventilator 05/21/20 00:00 99.5 106 18 106/66 (79) 100 05/21/20 00:00 109 05/20/20 23:46 83 18 50 05/20/20 21:20 111 147/77 05/20/20 21:19 111 147/77 05/20/20 20:00 97.0 105 20 147/77 (100) 100 107 05/20/20 20:00 50 05/20/20 20:00 Mechanical Ventilator 05/20/20 20:00 109 05/20/20 19:02 89 17 50 05/20/20 16:00 50 05/20/20 16:00 Mechanical Ventilator 05/20/20 16:00 99.3 105 17 132/83 (99) 100 05/20/20 16:00 96 05/20/20 15:20 86 20 50 05/20/20 14:41 104 115/63 Intake and Output 05/20/20 05/21/20 19:00 07:00 Intake Total 120 ml 810.0 ml Output Total 1100 ml Balance 120 ml -290.0 ml Intake Free Water 100 ml IV Total 110.0 ml Tube Feeding 120 ml 600 ml Output Urine Total 1100 ml Objective WDWN NAD trach reduced breath sounds bilaterally without rhonchi or wheeze [id number] without MRG NABS nontender Gt no CCE nonfocal Microbiology Date/Time Source Procedure Growth Status 05/20/20 03:40 Sputum Gram Stain - Final Resulted 05/20/20 03:40 Sputum Culture - Preliminary Gram Negative Bacillus 1 Gram Negative Bacillus 2 Resulted Laboratory Tests 05/21/20 09:00: White Blood Count 6.5, Red Blood Count 3.89L, Hemoglobin 10.8L, Hematocrit 35.2L , Mean Corpuscular Volume 91, Mean Corpuscular Hemoglobin 27.7, Mean Corpuscular Hemoglobin Concent 30.5L, Red Cell Distribution Width 18.1H, Platelet Count 211, Mean Platelet Volume 6.1L, Neutrophils (%) (Auto) 72.8, Lymphocytes (%) (Auto) 14.8L, Monocytes (%) (Auto) 4.9, Eosinophils (%) (Auto) 6.6H, Basophils (%) (A uto) 0.9, Sodium Level 150H, Potassium Level 3.5, Chloride Level 115H, Carbon Dioxide Level 33H, Anion Gap 2L, Blood Urea Nitrogen 20H, Creatinine 0.7, Estimat Glomerular Filtration Rate > 60, Glucose Level 115H, Calcium Level 8.3L, Total Bilirubin 0.5, Aspartate Amino Transf (AST/SGOT) 34, Alanine Aminotransferase (ALT/SGPT) < 6L, Alkaline Phosphatase 336H, Total Protein 10.4H , Total Protein (PEP) [Pending], Albumin 1.8L, Albumin (PEP) [Pending], Globulin 8.6, Globulin (PEP) [Pending], Albumin/Globulin Ratio 0.2L, Zvlcr-4-Dcddworlq [Pending], Svwgv-7-Mkhdhozhi [Pending], Beta Globulins [Pending], Beta Gamma Globulin [Pending], PEP Abnormal Protein Bands [Pending], Protein Electrophoresis Interpret [Pending] Current Medications Medications (Trade) Dose Ordered Sig/Lucy Route PRN Reason Start Time Stop Time Status Last Admin Dose Admin Acetaminophen (Tylenol) 650 mg Q4H PRN GT Mild Pain, Temp >100.5 05/16/20 17:45 06/15/20 17:44 05/19/20 00:37 Acetaminophen/ Hydrocodone Bitart ([place] 5/325) 1 tab Q8H PRN GT For Pain 05/16/20 19:45 05/23/20 19:44 Al Hydroxide/Mg Hydroxide (Mylanta) 30 ml Q4H PRN GT Abdominal cramps 05/16/20 17:45 06/15/20 17:44 Ascorbic Acid (Vitamin C) 500 mg DAILY GT 05/17/20 09:00 06/16/20 08:59 05/21/20 08:42 Barium Sulfate (Readi-Cat 2) 450 ml NOW PRN ORAL Radiology Procedure 05/20/20 11:00 05/22/20 10:59 Clonidine HCl (Catapres Tab) 0.1 mg Q6H PRN GT SBP>160 or DBP>90 05/16/20 19:45 08/14/20 19:44 Diltiazem HCl (Cardizem Tab) 30 mg EVERY 8 HOURS GT 05/16/20 22:00 06/15/20 21:59 05/21/20 06:04 Diphenhydramine HCl (Benadryl) 25 mg Q6H PRN NG Itching 05/16/20 21:45 06/15/20 21:44 05/21/20 08:51 Epoetin Liam (Epoetin Liam-EPBX(NON ESRD)) 10,000 unit TUE-TUE-TUE SUBQ 05/16/20 21:00 08/14/20 20:59 05/19/20 21:32 Famotidine (Pepcid) 20 mg BID GT 05/17/20 09:00 08/15/20 08:59 05/21/20 08:42 Iohexol (OMNIPAQUE-300 100ml) 100 ml NOW PRN INJ Radiology Procedure 05/20/20 11:00 05/22/20 10:59 Levothyroxine Sodium (Synthroid) 100 mcg DAILY@0630 GT 05/17/20 06:30 06/16/20 06:29 05/21/20 06:04 Metoprolol Tartrate (Lopressor) 12.5 mg Q12HR GT 05/16/20 21:00 08/14/20 20:59 05/21/20 08:41 Multivitamins (Multivitamins W/ Minerals 15ml Liquid) 15 ml DAILY GT 05/17/20 09:00 06/16/20 08:59 05/21/20 08:51 Pantoprazole (Protonix) 40 mg DAILY ORAL 05/20/20 09:00 06/19/20 08:59 05/21/20 08:42 Piperacillin Sod/ Tazobactam Sod 3.375 gm/Sodium Chloride 110 ml @ 27.5 mls/hr Q8HR IVPB 05/16/20 22:00 05/23/20 21:59 05/21/20 06:05 Zinc Sulfate (Zinc Sulfate) 220 mg DAILY GT 05/17/20 09:00 08/15/20 08:59 05/21/20 08:42 Assessment/Plan Assessment/Plan Anemia, status post blood transfusion history of UTI Chronic respiratory failure , ventilator dependent with tracheostomy status Dysphagia, feeding by G-tube History of sepsis Decubitus skin ulcer present on admission Chronic dermatitis Hypotension pericardial effusion small elevated CRP pulmonary hypertension ++lymphadenopathy splenomegaly liver lesion Breast cancer PLAN heme/onc eval noted nutrition care reviewed vent support CT body reviewed reviewed echo update family once further d/w oncology impression, plan, and exam edited and reviewed in detail care discussed with Stevenson Emerson MD May 21, 2020 13:49
--- NOTE | 2020-05-21 13:50 | NUR ---
NURSE NOTES: Contacted Dr. Sequeira regarding pt medication, Pantoprazole 40 mg enteric coated to change to something that can be given via G-tube. Awaiting reply.
--- NOTE | 2020-05-21 15:05 | NUR ---
NURSE NOTES: Contacted Dr. Mauricio regarding pt's chemotherapy treatment. SonRigoberto said pt's last chemo treatment was beginning of March 2019, and that pt had 5 sessions.
--- NOTE | 2020-05-21 15:20 | NUR ---
CASE MANAGEMENT:REVIEW 05/21/20 SI: BILATERAL PNA. ANEMIA TRACH/VENT/GTUBE 99.1 110 20 119/76 100% ON VENT SUPPORT W/50% FIO2 H/H-10.8/35.2 NA+150 ALB-1.8 IS: IV VANCO Q12 IV ZOSYN Q8HRS PEPCID GT BID ZINC GT QD VIT C GT QD LOPRESSOR GT Q12 EPOETIN SQ MWF : STEP DOWN UNIT DCP: FROM [facility]
[2020-05-21 16:00] VITALS: BP 130/71
--- NOTE | 2020-05-21 16:00 | NUR ---
NURSE NOTES: Pt given bed bath. turned and repositioned. Oral care and suctioning done. Vital signs remain stable. Tolerating vent setting saturating 100%. Will continue to monitor pt.
--- NOTE | 2020-05-21 16:17 | NUR ---
INSURANCE CLINICALS/REVIEWS/ HP FAXED TO [facility] [phone]
--- NOTE | 2020-05-21 18:01 | Surgery Progress Note ---
Surgery Progress Note Subjective Additional Comments ct noted onc eval noted itching skin but does not want to use cream for dry skin labs noted no n/v Objective Last 24 Hour Vital Signs Date Time Temp Pulse Resp B/P (MAP) Pulse Ox O2 Delivery O2 Flow Rate FiO2 05/21/20 16:00 99.0 107 18 130/71 (90) 100 05/21/20 16:00 Mechanical Ventilator 05/21/20 16:00 50 05/21/20 15:26 103 21 50 05/21/20 14:33 110 118/73 05/21/20 12:00 97 05/21/20 12:00 50 05/21/20 12:00 99.1 110 20 119/76 (90) 100 05/21/20 12:00 Mechanical Ventilator 05/21/20 11:37 110 14 97 Mechanical Ventilator 50 05/21/20 11:28 110 14 50 05/21/20 08:41 120 141/86 05/21/20 08:00 110 05/21/20 08:00 Mechanical Ventilator 05/21/20 08:00 50 05/21/20 08:00 98.6 111 18 141/92 (108) 100 05/21/20 07:14 96 16 50 05/21/20 06:04 117 145/92 05/21/20 04:00 112 05/21/20 04:00 Mechanical Ventilator 05/21/20 04:00 97.9 108 16 113/69 (84) 100 05/21/20 04:00 50 05/21/20 03:25 105 16 50 05/21/20 00:00 Mechanical Ventilator 05/21/20 00:00 99.5 106 18 106/66 (79) 100 05/21/20 00:00 109 05/20/20 23:46 83 18 50 05/20/20 21:20 111 147/77 05/20/20 21:19 111 147/77 05/20/20 20:00 97.0 105 20 147/77 (100) 100 107 05/20/20 20:00 50 05/20/20 20:00 Mechanical Ventilator 05/20/20 20:00 109 05/20/20 19:02 89 17 50 I&O Intake and Output 05/20/20 05/21/20 19:00 07:00 Intake Total 120 ml 810.0 ml Output Total 1100 ml Balance 120 ml -290.0 ml Intake Free Water 100 ml IV Total 110.0 ml Tube Feeding 120 ml 600 ml Output Urine Total 1100 ml Wound: dry Cardiovascular: RSR Respiratory: clear Abdomen: soft, non-tender, present bowel sounds Extremities: no tenderness, no cyanosis Laboratory Tests Test 05/21/20 09:00 White Blood Count 6.5 K/UL (4.8-10.8) Red Blood Count 3.89 M/UL (4.20-5.40) L Hemoglobin 10.8 G/DL (12.0-16.0) L Hematocrit 35.2 % (37.0-47.0) L Mean Corpuscular Volume 91 FL (80-99) Mean Corpuscular Hemoglobin 27.7 PG (27.0-31.0) Mean Corpuscular Hemoglobin Concent 30.5 G/DL (32.0-36.0) L Red Cell Distribution Width 18.1 % (11.6-14.8) H Platelet Count 211 K/UL (150-450) Mean Platelet Volume 6.1 FL (6.5-10.1) L Neutrophils (%) (Auto) 72.8 % (45.0-75.0) Lymphocytes (%) (Auto) 14.8 % (20.0-45.0) L Monocytes (%) (Auto) 4.9 % (1.0-10.0) Eosinophils (%) (Auto) 6.6 % (0.0-3.0) H Basophils (%) (Auto) 0.9 % (0.0-2.0) Sodium Level 150 MMOL/L (136-145) H Potassium Level 3.5 MMOL/L (3.5-5.1) Chloride Level 115 MMOL/L (98-107) H Carbon Dioxide Level 33 MMOL/L (21-32) H Anion Gap 2 mmol/L (5-15) L Blood Urea Nitrogen 20 mg/dL (7-18) H Creatinine 0.7 MG/DL (0.55-1.30) Estimat Glomerular Filtration Rate > 60 mL/min (>60) Glucose Level 115 MG/DL (74-106) H Calcium Level 8.3 MG/DL (8.5-10.1) L Total Bilirubin 0.5 MG/DL (0.2-1.0) Aspartate Amino Transf (AST/SGOT) 34 U/L (15-37) Alanine Aminotransferase (ALT/SGPT) < 6 U/L (12-78) L Alkaline Phosphatase 336 U/L (46-116) H Total Protein 10.4 G/DL (6.4-8.2) H Total Protein (PEP) Pending Albumin 1.8 G/DL (3.4-5.0) L Albumin (PEP) Pending Globulin 8.6 g/dL Globulin (PEP) Pending Albumin/Globulin Ratio 0.2 (1.0-2.7) L [id number] Pending [id number] Pending Beta Globulins Pending Beta Gamma Globulin Pending PEP Abnormal Protein Bands Pending Protein Electrophoresis Interpret Pending Plan Problems: (1) Pneumonia (2) Symptomatic anemia (3) Decubitus skin ulcer Assessment & Plan: Pt presented on admission with Pressure Injuries, Tracheostomy,Alopecia, Generalized Hypopigmented Skin plaques. Few plaques noted to be open lesions but are pink and dry. Skin assessed under collar of trach and no areas of skin breakdown noted. Full thickness Pressure injury noted to R Buttocks(L)5.7cm x (W)1.7cm x (D)0.3cm. Base of wound is 90% beefy-red,10% slough. Borders are macerated . surrounding dry skin with hypopigmented plaques. Full thickness Pressure injury L Buttocks(L)4.6cm x (W)4.5cm. Base of wound has clusters wounds with intertwining bridges. Wounds have mixed slough and jack appearances. Small amt serous exudate noted. Surrounding dry hypopigmented skin plaques. Proximally and in close proximity skin is denuded. Small pustule with surrounding erythema noted L Hallux(L)0.5cm x (W)0.6cm. NO changes in skin temp periwound. An area of hyperpigmentation from previous wound noted to medial/posterior R Heel. L Heel is otherwise boggy with non-blanching erythema. Reabsorbed DTPI L Heel(L)2.2cm x (W)2cm. Dry brown eschar at base of wound. NO erythema or fluctuance periwound. Unstageable Pressure injury L lateral Malleolus(L)0.7cm x (W)0.9cm. Base of wound has 100% slough.edges dry and adherent to base of wound. No erythema,induration,or fluctuance periwound. Tx.Plan: Cleanse wounds R and L Buttocks with Saline. Apply Therahoney to wounds. Apply Moisture Barrier Paste Periwound. Cover with Optifoam drsg Daily and prn. Apply Betadine to wound R Hallux. Cover with Optifoam drsg every 3 days and prn. Apply Betadine to L lateral Malleolus. Cover with Optifoam drsg. Change every 3 days and prn. Apply Cavilon Skin Barrier to both heels. Cover each heel with Optifoam drsg. Change every 7 days and prn. Apply moisture barrier paste to R and L Buttocks. Cover with Optiform dressing Q3 days and prn. Apply Cavilon skin barrier both heels cover each with Optiform dressing change Q 7 days and prn. Apply Phytoplex antifungal lotion for itching three times/day Reposition at least every 2hours or as tolerated. Off-load heels with pillow. APM/ELIDIA Mattress overlay. DAILY ESTIMATED NEEDS: Needs based on Wound, critical care, wt loss, GASOLINE FINISHER TF/ 52kg 25-35 kcals/kg 1536-3661 total kcals 1.25-2 g protein/kg 65-104 g total protein 25-30 mL/kg 0646-3218 total fluid mLs NUTRITION DIAGNOSIS: Increased kcal and pro needs r/t wound healing as evidenced by admitted w/ wounds @ BL buttocks, pending eval, suspected significant wt loss of 17lbs/10.5% in <3 months. CURRENT TF:Glucerna 1.5 @ 60ml/hr x 20 hrs ENTERAL NUTRITION RECOMMENDATIONS: Glucerna 1.5 @ 50ml/hr x 24 hrs to provide 1200ml, 1800 kcal, 99g pro, 911ml free H2O - Rec 24 hour continuous TF to prevent hypoglycemia - Rec goal rate of 50ml/hr x 24 hrs - Flush per MD. HOB over 30 degrees ADDITIONAL RECOMMENDATIONS: 1) Wound care: add GT BID, continue Vit C and ZnSO4 2) Per SNF: 61 inches (5'1") and wt= 145lbs (05/02/20) -> daily calibrated bedscale wt 3) Monitor BGs, need for NISS- h/o DM 4) Monitor lytes, replete as needed (4) Lymphadenopathy Assessment & Plan: Chest: Lungs diffusely demonstrate a mixture of mosaic attenuation and groundglass opacity with an upper lobe predominance, interspersed with areas of denser consolidation in a patchy distribution, the latter with a lower lobe predominance. There is also some interstitial septal thickening. There are bilateral pleural effusions. The heart is enlarged. There is a small pericardial effusion. There is bilateral hilar and mediastinal lymphadenopathy, with numerous enlarged mediastinal lymph nodes measuring up to 2 cm long axis dimension. There is also bilateral axillary adenopathy, with some infiltration of the axillary fat on the left. There is a tracheostomy. The thyroid is atrophic. The bones are unremarkable. When compared to the previous exam, there is considerably less pleural fluid. There is also less dense parenchymal consolidation. Background groundglass opacity is similar, however. The cardiomegaly and pericardial fluid were previously evident. The mediastinal lymphadenopathy is a new finding. The axillary nodes have also increased in size. There is much less edema of the subcutaneous fat Abdomen pelvis: There is a gastrostomy. Stomach and duodenum are otherwise unremarkable. The appendix is normal. No evidence of diverticulosis or diverticulitis. There is a small amount of free intraperitoneal fluid, predominantly in the pelvis. This is somewhat high in attenuation, measuring up to 21 Hounsfield units. No small bowel distention. No free intraperitoneal gas. There is a rectal tube in place. The lack of IV contrast limits assessment of the solid organs. The liver demo nstrates a low-attenuation lesion in segment 6 which demonstrates nonspecific soft tissue attenuation, is ill-defined but measures approximately 2 cm in diameter. The liver is also enlarged. Patient is status post cholecystectomy. No biliary ductal dilatat ion. The pancreas is unremarkable. Spleen is mildly enlarged, measuring up to 13.5 cm long axis dimension. The adrenals and kidneys are unremarkable. There are prominent but not frankly enlarged retroperitoneal nodes. No pelvic mass or adenopathy. The uterus and adnexal structures are unremarkable. There is a Vann catheter in place. Small amount of air within the bladder presumably is related to the Vann catheterization. There is mild diffuse edema of the subcutaneous fat. The bones are unremarkable. IMPRESSION: Mediastinal and bilateral hilar lymphadenopathy. This is a new finding since previous study of 02/18/2020. This could indicate inflammatory lymphadenopathy, metastatic lymphadenopathy, or lymphoproliferative disorder. Splenomegaly. This is also probably new since the previous 02/18/2020 exam, although the spleen was incompletely included on that study Bilateral parenchymal opacities, as described. Most likely on the basis of pulmonary edema, although pneumonia also possible. This is less severe than on the previous study Low-attenuation right lobe liver lesion. This could represent primary neoplasm, metastatic neoplasm, benign hemangioma, among other possibilities. Consider further evaluation with multiphasic contrast enhanced CT Bilateral pleural effusions, much decreased since the previous exam Tracheostomy Diffuse edema of the subcutaneous fat, improved since 02/18/2020 Free intraperitoneal fluid. High attenuation of this indicates that it could be bloody Rectal tube Gastrostomy Vann catheter (5) Liver mass Assessment & Plan: noted on CT pending repeat CT with contrast - noted ? infection vs abscess? ?mets? Abnormal right kidney, with areas of low attenuation as described likely representing areas of nephritis. There is a complex lesion coming off the lower pole of the right kidney. This could represent a renal neoplasm, but findings are somewhat suspicious for a small abscess. Hepatic abnormality described previously is demonstrated to have mostly low attenuation with some rim enhancement. As this is contiguous with an area of apparent inflammatory change in the right kidney, this could represent a small liver abscess secondary to hepatic invasion of renal infection. This could also represent a complex cyst or an infected cyst. Given the contiguity to the right kidney, it is also possible but less likely that this represents an exophytic renal abscess indenting the liver. Abnormal low-attenuation areas in the left kidney likewise are suspicious for areas of multifocal nephritis. There is a complex low-attenuation lesion with rim enhancement and septation. This could represent a complicated cyst or could represent a small renal abscess. Cystic neoplasm also possible although less likely. Sonography may be useful to better characterize if clinically indicated. Bilateral basilar pulmonary parenchymal infiltrates, likely pneumonia or pulmonary edema secondary to congestive heart failure Trace left pleural effusion also noted Hepatomegaly Thyromegaly Ascites fluid Rectal tube and gastrostomy noted. Cardiomegaly Zia Chung May 21, 2020 18:01
--- NOTE | 2020-05-21 19:00 | NUR ---
NURSE HAND-OFF REPORT: Important Events on Shift:None Patient Status: stable, full code Diet: Glucerna 1.5 @ 60cc/hr Pending Orders: N Pending Results/Labs:N Pending MD notification:N Latest Vital Signs: Temperature 99.0 , Pulse 106 , B/P 130 /71 , Respiratory Rate 24 , O2 SAT 100 , Mechanical Ventilator, O2 Flow Rate . Vital Sign Comment: stable EKG Rhythm: Sinus Tachycardia Rhythm change?: N MD Notified?: N - MD Response: N Latest Hope Fall Score: 50 Fall Risk: High Risk Safety Measures: Call light Within Reach, Bed Alarm Zone 1, Side Rails Side Rails x2, Bed position Low and Locked. Fall Precautions: Yellow Socks Yellow Gown Door Sign Patient Fall Education Report given to MAGI Caba.
--- NOTE | 2020-05-21 19:01 | NUR ---
NURSE NOTES: Report received from MAGI Damon. Pt appears disheveled and anxious upon assessment. German speaking and vent dependent, able to make needs known. Pt Vitals WNL, lowgrade temp of 99.5. 5-lead EKG shows ST at 111 BPM. Saturating 98% on prescribed vent settings of A/C 14, Vt 550, fiO2 50%. G-tube running 1.5 @ 60 with 0 residual noted. Vann draining well to gravity. On 24 hr urine clearance with collection canister at bedside. Made aware of alterations in skin integrity. Bed kept in lowest and locked position. Bed alarm on. Side rails up x3. Will monitor.
[2020-05-21 20:00] VITALS: BP 112/73
--- NOTE | 2020-05-21 20:10 | NUR ---
NURSE NOTES: Patient continues to remove medical devices, cry out, and slam on bed despite reorientation, repositioning, oral care, and ADL's offered/performed. Continues to request ice chips despite temperature decreasing to 98.4. Will monitor
[2020-05-21] MEDS: Epoetin Alfa-EPBX (NON ESRD)10,000 unit/ml vial SUBQ SCH (20:59)
[2020-05-21] MEDS: Acetaminophen 650mg/20.3ml GT PRN (21:00)
--- NOTE | 2020-05-21 22:00 | NUR ---
NURSE NOTES: Awaiting response from Dr. Medina and Dr. Mauricio with requests for PRN for pt. Pt observed continuously crying out despite all needs met. When asked if patient had pain, no pain noted.
[2020-05-22] VITALS: BP 114/69
--- NOTE | 2020-05-22 01:32 | NUR ---
NURSE NOTES: Upon rounding pt observed to have pulled out IV and 3rd pulse oximeter despite reorientation and distraction. Will request restraints from MD.
[2020-05-22] MEDS: DiphenhydrAMINE 25mg/10ml Elixir NG PRN (02:30)
--- NOTE | 2020-05-22 03:30 | NUR ---
NURSE NOTES: Bilateral soft wrist restraints applied for attempting to remove medical devices. Pt combative against phlebotomy and nursing staff despite reorientation. Will monitor.
[2020-05-22 04:00] VITALS: BP 127/82
[2020-05-22] MEDS: Piperacillin/Tazobactam 3.375 GM in NS 110 ML IVPB SCH (05:39)
[2020-05-22] MEDS: dilTIAZem HCl 30mg tab GT SCH ×3 (05:44→21:43)
--- NOTE | 2020-05-22 06:34 | NUR ---
NURSE NOTES: Pt continuously removes BiPAP throughout night despite all needs met. Desaturates to 80's on room air. Reminded pt to utilize call light if needing assistance. Pt requesting, "the pill to help her relax." PRN given. Offered nutrition and hydration as needed. Pt in stable condition. Addendum: 05/22/20 at 0635 by Emy Castillo RN Wrong patient.
[2020-05-22 06:38] LABS: BASOPHILS % (AUTO) 1.5 % (0.0-2.0); EOSINOPHILS % (AUTO) 6.7 % (0.0-3.0); HEMATOCRIT 36.8 % (37.0-47.0); HEMOGLOBIN 10.8 G/DL (12.0-16.0); LYMPHOCYTES % (AUTO) 15.7 % (20.0-45.0); MEAN CORPUSCULAR VOLUME 94 FL (80-99); MONOCYTES % (AUTO) 5.4 % (1.0-10.0); NEUTROPHILS % (AUTO) 70.7 % (45.0-75.0); PLATELET COUNT 203 K/UL (150-450); RED CELL DISTRIBUTION WIDTH 17.8 % (11.6-14.8); WHITE BLOOD COUNT 6.8 K/UL (4.8-10.8)
--- NOTE | 2020-05-22 07:08 | Hematology/Onc Progress Note ---
Assessment/Plan Assessment/Plan Assessment and Recs # Breast cancer, stage IV, on chemotherapy as outpatient --> obtain further records, order placed-->last chemo was march 2019, s/p 5 cycles --> katie explain lymphadenopathy as seen on ct --> Ct repeated with contrast shows no significant lad # Pancytopenia is due to recent chemo and infection --> imaging has been reviewed, does have splenomegaly --> hep and hiv are neg --> imaging abd reviewed # Pneumonia with b/l infiltrates --> s/p abx --> per ID # Symptomatic anemia -> s/p tranfusion # Resp failure s/p trach/vent # Splenomegaly. 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 Appreciate consultation and jelly Rn/Md Subjective Constitutional: Denies: no symptoms, chills, fever, malaise, weakness, other Cardiovascular: Denies: no symptoms, chest pain, edema, irregular heart rate, lightheadedness, palpitations, syncope, other Respiratory: Denies: no symptoms, cough, shortness of breath, SOB with excertion, SOB at rest, sputum, wheezing, other Gastrointestinal/Abdominal: Denies: no symptoms, abdomen distended, abdominal pain, black stools, tarry stools, blood in stool, constipated, diarrhea, difficulty swallowing, nausea, poor appetite, poor fluid intake, rectal bleeding, vomiting, other Genitourinary: Denies: no symptoms, burning, discharge, frequency, flank pain, hematuria, incontinence, pain, urgency, other Neurologic/Psychiatric: Denies: no symptoms, anxiety, depressed, emotional problems, headache, numbness, paresthesia, pre-existing deficit, seizure, tingling, tremors, weakness, other Endocrine: Denies: no symptoms, excessive sweating, flushing, intolerance to cold, intolerance to heat, increased hunger, increased thirst, increased urine, unexplained weight gain, unexplained weight loss, other Allergies: Coded Allergies: No Known Allergies (Unverified , 02/09/20) Subjective 05/22 on bipap, desaturates overnight, no bleeding, smear reviewed Objective Objective Current Medications Medications (Trade) Dose Ordered Sig/Lucy Route PRN Reason Start Time Stop Time Status Last Admin Dose Admin Acetaminophen (Tylenol) 650 mg Q4H PRN GT Mild Pain, Temp >100.5 05/16/20 17:45 06/15/20 17:44 05/21/20 21:00 Acetaminophen/ Hydrocodone Bitart (Fitzhugh 5/325) 1 tab Q8H PRN GT For Pain 05/16/20 19:45 05/23/20 19:44 Al Hydroxide/Mg Hydroxide (Mylanta) 30 ml Q4H PRN GT Abdominal cramps 05/16/20 17:45 06/15/20 17:44 Ascorbic Acid (Vitamin C) 500 mg DAILY GT 05/17/20 09:00 06/16/20 08:59 05/21/20 08:42 Barium Sulfate (Readi-Cat 2) 450 ml NOW PRN ORAL Radiology Procedure 05/20/20 11:00 05/22/20 10:59 Clonidine HCl (Catapres Tab) 0.1 mg Q6H PRN GT SBP>160 or DBP>90 05/16/20 19:45 08/14/20 19:44 Diltiazem HCl (Cardizem Tab) 30 mg EVERY 8 HOURS GT 05/16/20 22:00 06/15/20 21:59 05/22/20 05:44 Diphenhydramine HCl (Benadryl) 25 mg Q6H PRN NG Itching 05/16/20 21:45 06/15/20 21:44 05/22/20 02:30 Epoetin Liam (Epoetin Liam-EPBX(NON ESRD)) 10,000 unit TUE-TUE-TUE SUBQ 05/16/20 21:00 08/14/20 20:59 05/21/20 20:59 Famotidine (Pepcid) 20 mg BID GT 05/17/20 09:00 08/15/20 08:59 05/21/20 17:50 Iohexol (OMNIPAQUE-300 100ml) 100 ml NOW PRN INJ Radiology Procedure 05/20/20 11:00 05/22/20 10:59 Levothyroxine Sodium (Synthroid) 100 mcg DAILY@0630 GT 05/17/20 06:30 06/16/20 06:29 05/22/20 05:44 Metoprolol Tartrate (Lopressor) 12.5 mg Q12HR GT 05/16/20 21:00 08/14/20 20:59 05/21/20 20:59 Multivitamins (Multivitamins W/ Minerals 15ml Liquid) 15 ml DAILY GT 05/17/20 09:00 06/16/20 08:59 05/21/20 08:51 Piperacillin Sod/ Tazobactam Sod 3.375 gm/Sodium Chloride 110 ml @ 27.5 mls/hr Q8HR IVPB 05/16/20 22:00 05/23/20 21:59 05/22/20 05:39 Zinc Sulfate (Zinc Sulfate) 220 mg DAILY GT 05/17/20 09:00 08/15/20 08:59 05/21/20 08:42 Last 24 Hour Vital Signs Date Time Temp Pulse Resp B/P (MAP) Pulse Ox O2 Delivery O2 Flow Rate FiO2 05/22/20 05:44 100 122/72 05/22/20 04:00 Mechanical Ventilator 05/22/20 04:00 50 05/22/20 04:00 98.2 100 17 127/82 (97) 100 05/22/20 03:27 99 05/22/20 02:44 94 18 50 05/22/20 00:00 98.4 104 17 114/69 (84) 100 05/22/20 00:00 Mechanical Ventilator 05/21/20 23:30 112 05/21/20 22:40 89 19 50 05/21/20 22:27 111 110/78 05/21/20 21:30 98.9 05/21/20 20:59 116 112/73 05/21/20 20:00 99.5 104 18 112/73 (86) 100 05/21/20 20:00 Mechanical Ventilator 05/21/20 20:00 50 05/21/20 19:06 119 05/21/20 19:05 106 24 50 05/21/20 16:00 99.0 107 18 130/71 (90) 100 05/21/20 16:00 Mechanical Ventilator 05/21/20 16:00 50 05/21/20 15:26 103 21 50 05/21/20 15:14 112 05/21/20 14:33 110 118/73 05/21/20 12:00 97 05/21/20 12:00 50 05/21/20 12:00 99.1 110 20 119/76 (90) 100 05/21/20 12:00 Mechanical Ventilator 05/21/20 11:37 110 14 97 Mechanical Ventilator 50 05/21/20 11:28 110 14 50 05/21/20 08:41 120 141/86 05/21/20 08:00 110 05/21/20 08:00 Mechanical Ventilator 05/21/20 08:00 50 05/21/20 08:00 98.6 111 18 141/92 (108) 100 05/21/20 07:14 96 16 50 05/21/20 06:04 117 145/92 05/21/20 04:00 112 05/21/20 04:00 Mechanical Ventilator 05/21/20 04:00 97.9 108 16 113/69 (84) 100 05/21/20 04:00 50 05/21/20 03:25 105 16 50 05/21/20 00:00 Mechanical Ventilator 05/21/20 00:00 99.5 106 18 106/66 (79) 100 05/21/20 00:00 109 05/20/20 23:46 83 18 50 05/20/20 21:20 111 147/77 05/20/20 21:19 111 147/77 05/20/20 20:00 97.0 105 20 147/77 (100) 100 107 05/20/20 20:00 50 05/20/20 20:00 Mechanical Ventilator 05/20/20 20:00 109 05/20/20 19:02 89 17 50 05/20/20 16:00 50 05/20/20 16:00 Mechanical Ventilator 05/20/20 16:00 99.3 105 17 132/83 (99) 100 05/20/20 16:00 96 05/20/20 15:20 86 20 50 05/20/20 14:41 104 115/63 05/20/20 12:00 98.6 99 15 115/63 (80) 100 05/20/20 12:00 50 05/20/20 12:00 Mechanical Ventilator 05/20/20 12:00 104 05/20/20 10:40 83 17 50 05/20/20 09:02 101 134/74 05/20/20 09:00 50 05/20/20 08:00 Mechanical Ventilator 05/20/20 08:00 96 05/20/20 08:00 99.5 101 18 134/74 (94) 100 05/20/20 07:20 76 12 50 Intake and Output 05/21/20 05/22/20 19:00 07:00 Intake Total 850 ml 677.0 ml Balance 850 ml 677.0 ml Intake Free Water 190 ml IV Total 137.0 ml Tube Feeding 660 ml 540 ml Labs Test 05/20/20 04:30 05/21/20 09:00 05/22/20 05:15 White Blood Count 4.6 K/UL (4.8-10.8) 6.5 K/UL (4.8-10.8) 6.8 K/UL (4.8-10.8) Red Blood Count 3.69 M/UL (4.20-5.40) 3.89 M/UL (4.20-5.40) 3.90 M/UL (4.20-5.40) Hemoglobin 10.4 G/DL (12.0-16.0) 10.8 G/DL (12.0-16.0) 10.8 G/DL (12.0-16.0) Hematocrit 35.1 % (37.0-47.0) 35.2 % (37.0-47.0) 36.8 % (37.0-47.0) Mean Corpuscular Volume 95 FL (80-99) 91 FL (80-99) 94 FL (80-99) Mean Corpuscular Hemoglobin 28.3 PG (27.0-31.0) 27.7 PG (27.0-31.0) 27.6 PG (27.0-31.0) Mean Corpuscular Hemoglobin Concent 29.7 G/DL (32.0-36.0) 30.5 G/DL (32.0-36.0) 29.3 G/DL (32.0-36.0) Red Cell Distribution Width 17.6 % (11.6-14.8) 18.1 % (11.6-14.8) 17.8 % (11.6-14.8) Platelet Count 211 K/UL (150-450) 211 K/UL (150-450) 203 K/UL (150-450) Mean Platelet Volume 5.9 FL (6.5-10.1) 6.1 FL (6.5-10.1) 6.1 FL (6.5-10.1) Neutrophils (%) (Auto) 65.6 % (45.0-75.0) 72.8 % (45.0-75.0) 70.7 % (45.0-75.0) Lymphocytes (%) (Auto) 15.9 % (20.0-45.0) 14.8 % (20.0-45.0) 15.7 % (20.0-45.0) Monocytes (%) (Auto) 7.2 % (1.0-10.0) 4.9 % (1.0-10.0) 5.4 % (1.0-10.0) Eosinophils (%) (Auto) 10.4 % (0.0-3.0) 6.6 % (0.0-3.0) 6.7 % (0.0-3.0) Basophils (%) (Auto) 0.9 % (0.0-2.0) 0.9 % (0.0-2.0) 1.5 % (0.0-2.0) Sodium Level 151 MMOL/L (136-145) 150 MMOL/L (136-145) Potassium Level 3.8 MMOL/L (3.5-5.1) 3.5 MMOL/L (3.5-5.1) Chloride Level 118 MMOL/L (98-107) 115 MMOL/L (98-107) Carbon Dioxide Level 28 MMOL/L (21-32) 33 MMOL/L (21-32) Anion Gap 5 mmol/L (5-15) 2 mmol/L (5-15) Blood Urea Nitrogen 21 mg/dL (7-18) 20 mg/dL (7-18) Creatinine 0.7 MG/DL (0.55-1.30) 0.7 MG/DL (0.55-1.30) Estimat Glomerular Filtration Rate > 60 mL/min (>60) > 60 mL/min (>60) Glucose Level 128 MG/DL (74-106) 115 MG/DL (74-106) Calcium Level 7.8 MG/DL (8.5-10.1) 8.3 MG/DL (8.5-10.1) Total Bilirubin 0.5 MG/DL (0.2-1.0) 0.5 MG/DL (0.2-1.0) Aspartate Amino Transf (AST/SGOT) 31 U/L (15-37) 34 U/L (15-37) Alanine Aminotransferase (ALT/SGPT) 7 U/L (12-78) < 6 U/L (12-78) Alkaline Phosphatase 277 U/L (46-116) 336 U/L (46-116) Total Protein 9.6 G/DL (6.4-8.2) 10.4 G/DL (6.4-8.2) Albumin 1.6 G/DL (3.4-5.0) 1.8 G/DL (3.4-5.0) Globulin 8.0 g/dL 8.6 g/dL Albumin/Globulin Ratio 0.2 (1.0-2.7) 0.2 (1.0-2.7) Hepatitis A IgM Antibody Negative (Negative) Hepatitis B Surface Antigen Negative (Negative) Hepatitis B Core IgM Antibody Negative (Negative) Hepatitis C Antibody 0.2 s/co ratio (0.0-0.9) HIV (1&2) Antibody Rapid Negative (NEGATIVE) Height (Feet): 5 Height (Inches): 2.00 Weight (Pounds): 125 Objective PE General: Awake and alert, nad HEENT: NC/AT. EOMI. Neck: Tracheostomy in place. Cardiovascular: Tachycardic. S1 and S2 normal. Resp: Vent dependent through tracheostomy. Abdomen: Abdomen is soft, nondistended. G-tube in place Skin: Diffuse hypopigmentation over the skin. Patient is itchy MSK: Normal tone and bulk. Moving all extremities. Neuro: Awake and alert. Mentating appropriately. Toby Mauricio MD May 22, 2020 07:08
--- NOTE | 2020-05-22 07:20 | NUR ---
NURSE HAND-OFF REPORT: Important Events on Shift: Bilateral Soft Wrist Restraints for pulling out medical devices Patient Status: Stable Diet: Glucerna 1.5 Pending Orders: N Pending Results/Labs: N Pending MD notification: Y; GI for Lomotil Latest Vital Signs: Temperature 98.2 , Pulse 100 , B/P 122 /72 , Respiratory Rate 17 , O2 SAT 100 , Mechanical Ventilator, O2 Flow Rate . Vital Sign Comment: WNL EKG Rhythm: Sinus Rhythm Rhythm change?: N MD Notified?: N - MD Response: Latest Hope Fall Score: 50 Fall Risk: High Risk Safety Measures: Call light Within Reach, Bed Alarm Zone 1, Side Rails Side Rails x2, Bed position Low and Locked. Fall Precautions: Yellow Socks Yellow Gown Door Sign Patient Fall Education Report given to MAGI Salinas.
--- NOTE | 2020-05-22 07:40 | NUR ---
NURSE NOTES:Handoff received from MAGI Caba. Patient received resting in bed, no acute signs of distress noted. Patient is on trach to vent with settings: Shiley 8, AC 14, FI02 50% and peep of 5, communicates via facial expressions, body movements and mouthing words. Patient has g tube being held as patient received synthroid, will turn on again at 0900 per MD order. Vann is patent and draining to gravity, patient also has rectal tube patent and draining, Patient skin is dry and flaking. L hand IV site site is clean dry and intact, saline locked. Patient is on supervisor crack off. Isolation precautions for MRSA as well as fall and aspiration precautions being followed. Will follow plan of care.
[2020-05-22 08:00] VITALS: BP 120/71
--- NOTE | 2020-05-22 08:10 | NUR ---
NURSE NOTES:RT titrated FI02 to 40% patient still saturating at 100%.
[2020-05-22] MEDS: Multivitamins W/Minerals 15 ML UDC GT SCH (08:39)
[2020-05-22] MEDS: Metoprolol Tartrate 12.5mg TAB GT SCH ×2 (08:39→21:44)
[2020-05-22] MEDS: Zinc Sulfate 220mg GT SCH (08:40)
[2020-05-22] MEDS: Ascorbic Acid 500mg tab GT SCH (08:40)
--- NOTE | 2020-05-22 08:44 | Pulmonology Progress Note ---
Subjective ROS Limited/Unobtainable: Yes Allergies: Coded Allergies: No Known Allergies (Unverified , 02/09/20) Subjective care noted anemic elevated CRP ++ lymphadenopathy enlarged spleen and liver lesion Objective Last 24 Hour Vital Signs Date Time Temp Pulse Resp B/P (MAP) Pulse Ox O2 Delivery O2 Flow Rate FiO2 05/22/20 08:39 110 120/71 05/22/20 08:00 98.8 110 18 120/71 (87) 100 05/22/20 08:00 Mechanical Ventilator 05/22/20 08:00 40 05/22/20 05:44 100 122/72 05/22/20 04:00 Mechanical Ventilator 05/22/20 04:00 50 05/22/20 04:00 98.2 100 17 127/82 (97) 100 05/22/20 03:27 99 05/22/20 02:44 94 18 50 05/22/20 00:00 98.4 104 17 114/69 (84) 100 05/22/20 00:00 Mechanical Ventilator 05/21/20 23:30 112 05/21/20 22:40 89 19 50 05/21/20 22:27 111 110/78 05/21/20 21:30 98.9 05/21/20 20:59 116 112/73 05/21/20 20:00 99.5 104 18 112/73 (86) 100 05/21/20 20:00 Mechanical Ventilator 05/21/20 20:00 50 05/21/20 19:06 119 05/21/20 19:05 106 24 50 05/21/20 16:00 99.0 107 18 130/71 (90) 100 05/21/20 16:00 Mechanical Ventilator 05/21/20 16:00 50 05/21/20 15:26 103 21 50 05/21/20 15:14 112 05/21/20 14:33 110 118/73 05/21/20 12:00 97 05/21/20 12:00 50 05/21/20 12:00 99.1 110 20 119/76 (90) 100 05/21/20 12:00 Mechanical Ventilator 05/21/20 11:37 110 14 97 Mechanical Ventilator 50 05/21/20 11:28 110 14 50 Intake and Output 05/21/20 05/22/20 19:00 07:00 Intake Total 850 ml 704.5 ml Balance 850 ml 704.5 ml Intake Free Water 190 ml IV Total 164.5 ml Tube Feeding 660 ml 540 ml Objective WDWN NAD trach reduced breath sounds bilaterally without rhonchi or wheeze [id number] without MRG NABS nontender Gt no CCE nonfocal Microbiology Date/Time Source Procedure Growth Status 05/20/20 03:40 Sputum Gram Stain - Final Resulted 05/20/20 03:40 Sputum Culture - Preliminary Gram Negative Bacillus 1 Gram Negative Bacillus 2 Resulted Laboratory Tests 05/21/20 09:00: White Blood Count 6.5, Red Blood Count 3.89L, Hemoglobin 10.8L, Hematocrit 35.2L , Mean Corpuscular Volume 91, Mean Corpuscular Hemoglobin 27.7, Mean Corpuscular Hemoglobin Concent 30.5L, Red Cell Distribution Width 18.1H, Platelet Count 211, Mean Platelet Volume 6.1L, Neutrophils (%) (Auto) 72.8, Lymphocytes (%) (Auto) 14.8L, Monocytes (%) (Auto) 4.9, Eosinophils (%) (Auto) 6.6H, Basophils (%) (Auto) 0.9, Sodium Level 150H, Potassium Level 3.5, Chloride Level 115H, Carbon Dioxide Level 33H, Anion Gap 2L, Blood Urea Nitrogen 20H, Creatinine 0.7, Estimat Glomerular Filtration Rate > 60, Glucose Level 115H, Calcium Level 8.3L, Total Bilirubin 0.5, Aspartate Amino Transf (AST/SGOT) 34, Alanine Aminotransferase (ALT/SGPT) < 6L, Alkaline Phosphatase 336H, Total Protein 10.4H , Total Protein (PEP) [Pending], Albumin 1.8L, Albumin (PEP) [Pending], Globulin 8.6, Globulin (PEP) [Pending], Albumin/Globulin Ratio 0.2L, Rwzcr-5-Okwnnetdx [Pending], Ivgig-4-Omstvmtjq [Pending], Beta Globulins [Pending], Beta Gamma Globulin [Pending], PEP Abnormal Protein Bands [Pending], Protein Electrophoresis Interpret [Pending] 05/22/20 05:15: White Blood Count 6.8, Red Blood Count 3.90L, Hemoglobin 10.8L, Hematocrit 36.8L , Mean Corpuscular Volume 94, Mean Corpuscular Hemoglobin 27.6, Mean Corpuscular Hemoglobin Concent 29.3L, Red Cell Distribution Width 17.8H, Platelet Count 203, Mean Platelet Volume 6.1L, Neutrophils (%) (Auto) 70.7, Lymphocytes (%) (Auto) 15.7L, Monocytes (%) (Auto) 5.4, Eosinophils (%) (Auto) 6.7H, Basophils (%) (Auto) 1.5 Current Medications Medications (Trade) Dose Ordered Sig/Lucy Route PRN Reason Start Time Stop Time Status Last Admin Dose Admin Acetaminophen (Tylenol) 650 mg Q4H PRN GT Mild Pain, Temp >100.5 05/16/20 17:45 06/15/20 17:44 05/21/20 21:00 Acetaminophen/ Hydrocodone Bitart ([place] 5/325) 1 tab Q8H PRN GT For Pain 05/16/20 19:45 05/23/20 19:44 Al Hydroxide/Mg Hydroxide (Mylanta) 30 ml Q4H PRN GT Abdominal cramps 05/16/20 17:45 06/15/20 17:44 Ascorbic Acid (Vitamin C) 500 mg DAILY GT 05/17/20 09:00 06/16/20 08:59 05/22/20 08:40 Barium Sulfate (Readi-Cat 2) 450 ml NOW PRN ORAL Radiology Procedure 05/20/20 11:00 05/22/20 10:59 Clonidine HCl (Catapres Tab) 0.1 mg Q6H PRN GT SBP>160 or DBP>90 05/16/20 19:45 08/14/20 19:44 Diltiazem HCl (Cardizem Tab) 30 mg EVERY 8 HOURS GT 05/16/20 22:00 06/15/20 21:59 05/22/20 05:44 Diphenhydramine HCl (Benadryl) 25 mg Q6H PRN NG Itching 05/16/20 21:45 06/15/20 21:44 05/22/20 02:30 Epoetin Liam (Epoetin Liam-EPBX(NON ESRD)) 10,000 unit TUE-TUE-TUE SUBQ 05/16/20 21:00 08/14/20 20:59 05/21/20 20:59 Famotidine (Pepcid) 20 mg BID GT 05/17/20 09:00 08/15/20 08:59 05/22/20 08:40 Iohexol (OMNIPAQUE-300 100ml) 100 ml NOW PRN INJ Radiology Procedure 05/20/20 11:00 05/22/20 10:59 Levothyroxine Sodium (Synthroid) 100 mcg DAILY@0630 GT 05/17/20 06:30 06/16/20 06:29 05/22/20 05:44 Metoprolol Tartrate (Lopressor) 12.5 mg Q12HR GT 05/16/20 21:00 08/14/20 20:59 05/22/20 08:39 Multivitamins (Multivitamins W/ Minerals 15ml Liquid) 15 ml DAILY GT 05/17/20 09:00 06/16/20 08:59 05/22/20 08:39 Piperacillin Sod/ Tazobactam Sod 3.375 gm/Sodium Chloride 110 ml @ 27.5 mls/hr Q8HR IVPB 05/16/20 22:00 05/23/20 21:59 05/22/20 05:39 Zinc Sulfate (Zinc Sulfate) 220 mg DAILY GT 05/17/20 09:00 08/15/20 08:59 05/22/20 08:40 Assessment/Plan Assessment/Plan Anemia, status post blood transfusion history of UTI Chronic respiratory failure , ventilator dependent with tracheostomy status Dysphagia, feeding by G-tube History of sepsis Decubitus skin ulcer present on admission Chronic dermatitis Hypotension pericardial effusion small elevated CRP pulmonary hypertension ++lymphadenopathy splenomegaly liver lesion Breast cancer PLAN heme/onc eval noted and discussed nutrition care reviewed vent support CT body reviewed reviewed echo update family once further d/w oncology impression, plan, and exam edited and reviewed in detail care discussed with Stevenson Emerson MD May 22, 2020 08:44
--- NOTE | 2020-05-22 08:53 | NUR ---
NURSE NOTES:restraints removed whilst I was in the room performing assessment and administering medications. Patient supervised at all times, active range of motion performed.
--- NOTE | 2020-05-22 08:59 | NUR ---
NURSE NOTES:Natalia Rosas stated patient refused lab draw.
--- NOTE | 2020-05-22 09:10 | NUR ---
NURSE NOTES:G tube feed restarted as order to hold [id number].
--- NOTE | 2020-05-22 11:31 | NUR ---
NURSE NOTES:RT titrated FI02 down to 40% to try wean patient in anticipation for discharge. Addendum: 05/22/20 at 1154 by Brad Bourgeois RN wrong patient chart
--- NOTE | 2020-05-22 11:33 | Surgery Progress Note ---
Surgery Progress Note Subjective Symptoms: improved, pain absent, tolerating diet, passing flatus, BM Objective Last 24 Hour Vital Signs Date Time Temp Pulse Resp B/P (MAP) Pulse Ox O2 Delivery O2 Flow Rate FiO2 05/22/20 08:39 110 120/71 05/22/20 08:00 98.8 110 18 120/71 (87) 100 05/22/20 08:00 Mechanical Ventilator 05/22/20 08:00 107 05/22/20 08:00 40 05/22/20 05:44 100 122/72 05/22/20 04:00 Mechanical Ventilator 05/22/20 04:00 50 05/22/20 04:00 98.2 100 17 127/82 (97) 100 05/22/20 03:27 99 05/22/20 02:44 94 18 50 05/22/20 00:00 98.4 104 17 114/69 (84) 100 05/22/20 00:00 Mechanical Ventilator 05/21/20 23:30 112 05/21/20 22:40 89 19 50 05/21/20 22:27 111 110/78 05/21/20 21:30 98.9 05/21/20 20:59 116 112/73 05/21/20 20:00 99.5 104 18 112/73 (86) 100 05/21/20 20:00 Mechanical Ventilator 05/21/20 20:00 50 05/21/20 19:06 119 05/21/20 19:05 106 24 50 05/21/20 16:00 99.0 107 18 130/71 (90) 100 05/21/20 16:00 Mechanical Ventilator 05/21/20 16:00 50 05/21/20 15:26 103 21 50 05/21/20 15:14 112 05/21/20 14:33 110 118/73 05/21/20 12:00 97 05/21/20 12:00 50 05/21/20 12:00 99.1 110 20 119/76 (90) 100 05/21/20 12:00 Mechanical Ventilator 05/21/20 11:37 110 14 97 Mechanical Ventilator 50 I&O Intake and Output 05/21/20 05/22/20 19:00 07:00 Intake Total 850 ml 704.5 ml Balance 850 ml 704.5 ml Intake Free Water 190 ml IV Total 164.5 ml Tube Feeding 660 ml 540 ml Dressing: dry Cardiovascular: RSR Respiratory: decreased breath sounds Abdomen: soft, non-tender, present bowel sounds Extremities: no tenderness, no cyanosis, other Laboratory Tests Test 05/22/20 05:15 05/22/20 10:30 White Blood Count 6.8 K/UL (4.8-10.8) Red Blood Count 3.90 M/UL (4.20-5.40) L Hemoglobin 10.8 G/DL (12.0-16.0) L Hematocrit 36.8 % (37.0-47.0) L Mean Corpuscular Volume 94 FL (80-99) Mean Corpuscular Hemoglobin 27.6 PG (27.0-31.0) Mean Corpuscular Hemoglobin Concent 29.3 G/DL (32.0-36.0) L Red Cell Distribution Width 17.8 % (11.6-14.8) H Platelet Count 203 K/UL (150-450) Mean Platelet Volume 6.1 FL (6.5-10.1) L Neutrophils (%) (Auto) 70.7 % (45.0-75.0) Lymphocytes (%) (Auto) 15.7 % (20.0-45.0) L Monocytes (%) (Auto) 5.4 % (1.0-10.0) Eosinophils (%) (Auto) 6.7 % (0.0-3.0) H Basophils (%) (Auto) 1.5 % (0.0-2.0) Urine Total Volume 24 Hours Pending Urine Creatinine 24 Hour Pending Urine Total Protein Timed Pending Urine Protein/Creatinine Ratio Pending Urine Albumin (%) Pending Urine Hesgw-1-Qhquwqonh (%) Pending Urine Qcndk-1-Eloqrumyu (%) Pending Urine Beta-Globulin (%) Pending Urine Gamma Globulin (%) Pending Urine Protein Electrophoresis Intrp Pending Plan Problems: (1) Pneumonia (2) Symptomatic anemia (3) Decubitus skin ulcer Assessment & Plan: Pt presented on admission with Pressure Injuries, Tracheostomy,Alopecia, Generalized Hypopigmented Skin plaques. Few plaques noted to be open lesions but are pink and dry. Skin assessed under collar of trach and no areas of skin breakdown noted. Full thickness Pressure injury noted to R Buttocks(L)5.7cm x (W)1.7cm x (D)0.3cm. Base of wound is 90% beefy-red,10% slough. Borders are macerated . surrounding dry skin with hypopigmented plaques. Full thickness Pressure injury L Buttocks(L)4.6cm x (W)4.5cm. Base of wound has clusters wounds with intertwining bridges. Wounds have mixed slough and jack appearances. Small amt serous exudate noted. Surrounding dry hypopigmented skin plaques. Proximally and in close proximity skin is denuded. Small pustule with surrounding erythema noted L Hallux(L)0.5cm x (W)0.6cm. NO changes in skin temp periwound. An area of hyperpigmentation from previous wound noted to medial/posterior R Heel. L Heel is otherwise boggy with non-blanching erythema. Reabsorbed DTPI L Heel(L)2.2cm x (W)2cm. Dry brown eschar at base of wound. NO erythema or fluctuance periwound. Unstageable Pressure injury L lateral Malleolus(L)0.7cm x (W)0.9cm. Base of wound has 100% slough.edges dry and adherent to base of wound. No erythema,induration,or fluctuance periwound. Tx.Plan: Cleanse wounds R and L Buttocks with Saline. Apply Therahoney to wounds. Apply Moisture Barrier Paste Periwound. Cover with Optifoam drsg Daily and prn. Apply Betadine to wound R Hallux. Cover with Optifoam drsg every 3 days and prn. Apply Betadine to L lateral Malleolus. Cover with Optifoam drsg. Change every 3 days and prn. Apply Cavilon Skin Barrier to both heels. Cover each heel with Optifoam drsg. Change every 7 days and prn. Apply moisture barrier paste to R and L Buttocks. Cover with Optiform dressing Q3 days and prn. Apply Cavilon skin barrier both heels cover each with Optiform dressing change Q 7 days and prn. Apply Phytoplex antifungal lotion for itching three times/day Reposition at least every 2hours or as tolerated. Off-load heels with pillow. APM/ELIDIA Mattress overlay. DAILY ESTIMATED NEEDS: Needs based on Wound, critical care, wt loss, STAFF TOXICOLOGIST TF/ 52kg 25-35 kcals/kg 2064-6898 total kcals 1.25-2 g protein/kg 65-104 g total protein 25-30 mL/kg 2726-0580 total fluid mLs NUTRITION DIAGNOSIS: Increased kcal and pro needs r/t wound healing as evidenced by admitted w/ wounds @ BL buttocks, pending eval, suspected significant wt loss of 17lbs/10.5% in <3 months. CURRENT TF:Glucerna 1.5 @ 60ml/hr x 20 hrs ENTERAL NUTRITION RECOMMENDATIONS: Glucerna 1.5 @ 50ml/hr x 24 hrs to provide 1200ml, 1800 kcal, 99g pro, 911ml free H2O - Rec 24 hour continuous TF to prevent hypoglycemia - Rec goal rate of 50ml/hr x 24 hrs - Flush per MD. HOB over 30 degrees ADDITIONAL RECOMMENDATIONS: 1) Wound care: add GT BID, continue Vit C and ZnSO4 2) Per SNF: 61 inches (5'1") and wt= 145lbs (05/02/20) -> daily calibrated bedscale wt 3) Monitor BGs, need for NISS- h/o DM 4) Monitor lytes, replete as needed (4) Lymphadenopathy Assessment & Plan: Chest: Lungs diffusely demonstrate a mixture of mosaic attenuation and groundglass opacity with an upper lobe predominance, interspersed with areas of denser consolidation in a patchy distribution, the latter with a lower lobe predominance. There is also some interstitial septal thickening. There are bilateral pleural effusions. The heart is enlarged. There is a small pericardial effusion. There is bilateral hilar and mediastinal lymphadenopathy, with numerous enlarged mediastinal lymph nodes measuring up to 2 cm long axis dimension. There is also bilateral axillary adenopathy, with some infiltration of the axillary fat on the left. There is a tracheostomy. The thyroid is atrophic. The bones are unremarkable. When compared to the previous exam, there is considerably less pleural fluid. There is also less dense parenchymal consolidation. Background groundglass opacity is similar, however. The cardiomegaly and pericardial fluid were previously evident. The mediastinal lymphadenopathy is a new finding. The axillary nodes have also increased in size. There is much less edema of the subcutaneous fat Abdomen pelvis: There is a gastrostomy. Stomach and duodenum are otherwise unremarkable. The appendix is normal. No evidence of diverticulosis or diverticulitis. There is a small amount of free intraperitoneal fluid, predominantly in the pelvis. This is somewhat high in attenuation, measuring up to 21 Hounsfield units. No small bowel distention. No free intraperitoneal gas. There is a rectal tube in place. The lack of IV contrast limits assessment of the solid organs. The liver demonstrates a low-attenuation lesion in segment 6 which demonstrates nonspecific soft tissue attenuation, is ill-defined but measures approximately 2 cm in diameter. The liver is also enlarged. Patient is status post cholecystectomy. No biliary ductal dilatation. The pancreas is unremarkable. Spleen is mildly enlarged, measuring up to 13.5 cm long axis dimension. The adrenals and kidneys are unremarkable. There are prominent b ut not frankly enlarged retroperitoneal nodes. No pelvic mass or adenopathy. The uterus and adnexal structures are unremarkable. There is a Vann catheter in place. Small amount of air within the bladder presumably is related to the Vann catheterization. There is mild diffuse edema of the subcutaneous fat. The bones are unremarkable. IMPRESSION: Mediastinal and bilateral hilar lymphadenopathy. This is a new finding since previous study of 02/18/2020. This could indicate inflammatory lymphadenopathy, metastatic lymphadenopathy, or lymphoproliferative disorder. Splenomegaly. This is also probably new since the previous 02/18/2020 exam, although the spleen was incompletely included on that study Bilateral parenchymal opacities, as described. Most likely on the basis of pulmonary edema, although pneumonia also possible. This is less severe than on the prev ious study Low-attenuation right lobe liver lesion. This could represent primary neoplasm, metastatic neoplasm, benign hemangioma, among other possibilities. Consider further evaluation with multiphasic contrast enhanced CT Bilateral pleural effusions, much decreased since the previous exam Tracheostomy Diffuse edema of the subcutaneous fat, improved since 02/18/2020 Free intraperitoneal fluid. High attenuation of this indicates that it could be bloody Rectal tube Gastrostomy Vann catheter (5) Liver mass Assessment & Plan: noted on CT pending repeat CT with contrast - noted ? infection vs abscess? ?mets? Abnormal right kidney, with areas of low attenuation as described likely representing areas of nephritis. There is a complex lesion coming off the lower pole of the right kidney. This could represent a renal neoplasm, but findings are somewhat suspicious for a small abscess. Hepatic abnormality described previously is demonstrated to have mostly low attenuation with some rim enhancement. As this is contiguous with an area of apparent inflammatory change in the right kidney, this could represent a small liver abscess secondary to hepatic invasion of renal infection. This could also represent a complex cyst or an infected cyst. Given the contiguity to the right kidney, it is also possible but less likely that this represents an exophytic renal abscess indenting the liver. Abnormal low-attenuation areas in the left kidney likewise are suspicious for areas of multifocal nephritis. There is a complex low-attenuation lesion with rim enhancement and septation. This could represent a complicated cyst or could represent a small renal abscess. Cystic neoplasm also possible although less likely. Sonography may be useful to better characterize if clinically indicated. Bilateral basilar pulmonary parenchymal infiltrates, likely pneumonia or pulmonary edema secondary to congestive heart failure Trace left pleural effusion also noted Hepatomegaly Thyromegaly Ascites fluid Rectal tube and gastrostomy noted. Cardiomegaly Zia Chung May 22, 2020 11:33
[2020-05-22 11:40] VITALS: BP 105/62
--- NOTE | 2020-05-22 11:52 | NUR ---
NURSE NOTES:Patient unable to tolerate FI02 of 40% due to desaturation, RT aware and titrated FI02 up to 50%, patient o2 saturation now 94%. Addendum: 05/22/20 at 1154 by Brad Bourgeois RN WRONG patient chart
--- NOTE | 2020-05-22 12:07 | Infectious Diseases Prog Note ---
Assessment/Plan Assessment/Plan A 1. Pseudomonas, proteus & Acinetobacter pneumonia COVID19 negative 2. breast cancer 3. Ventilator dependent respiratory failure s/p tracheostomy 4. 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 ? liver abscess P 1. change Zosyn to Meropenem 2. will follow up cultures Subjective ROS Limited/Unobtainable: Yes Constitutional: Denies: fever Allergies: Coded Allergies: No Known Allergies (Unverified , 02/09/20) Objective Last 24 Hour Vital Signs Date Time Temp Pulse Resp B/P (MAP) Pulse Ox O2 Delivery O2 Flow Rate FiO2 05/22/20 12:01 40 05/22/20 12:00 Mechanical Ventilator 05/22/20 11:40 99.1 109 20 105/62 (76) 100 05/22/20 10:56 100 14 50 05/22/20 08:39 110 120/71 05/22/20 08:00 98.8 110 18 120/71 (87) 100 05/22/20 08:00 Mechanical Ventilator 05/22/20 08:00 107 05/22/20 08:00 40 05/22/20 07:00 104 15 50 05/22/20 05:44 100 122/72 05/22/20 04:00 Mechanical Ventilator 05/22/20 04:00 50 05/22/20 04:00 98.2 100 17 127/82 (97) 100 05/22/20 03:27 99 05/22/20 02:44 94 18 50 05/22/20 00:00 98.4 104 17 114/69 (84) 100 05/22/20 00:00 Mechanical Ventilator 05/21/20 23:30 112 05/21/20 22:40 89 19 50 05/21/20 22:27 111 110/78 05/21/20 21:30 98.9 05/21/20 20:59 116 112/73 05/21/20 20:00 99.5 104 18 112/73 (86) 100 05/21/20 20:00 Mechanical Ventilator 05/21/20 20:00 50 05/21/20 19:06 119 05/21/20 19:05 106 24 50 05/21/20 16:00 99.0 107 18 130/71 (90) 100 05/21/20 16:00 Mechanical Ventilator 05/21/20 16:00 50 05/21/20 15:26 103 21 50 05/21/20 15:14 112 05/21/20 14:33 110 118/73 Height (Feet): 5 Height (Inches): 2.00 Weight (Pounds): 125 HEENT: status post trach Respiratory/Chest: lungs clear, other - on ventilator Cardiovascular: tachycardia Abdomen: soft, non tender, other - GT & rectal tube, pasty stool Extremities: no edema Skin: other - hair loss, areas of depigmentation Neurologic/Psychiatric: alert, responsive Microbiology Date/Time Source Procedure Growth Status 05/20/20 03:40 Sputum Gram Stain - Final Resulted 05/20/20 03:40 Sputum Culture - Preliminary Acinetobacter Baumannii Complx Pseudomonas Aeruginosa Proteus Mirabilis Resulted Laboratory Tests Test 05/22/20 05:15 05/22/20 10:30 White Blood Count 6.8 K/UL (4.8-10.8) Red Blood Count 3.90 M/UL (4.20-5.40) L Hemoglobin 10.8 G/DL (12.0-16.0) L Hematocrit 36.8 % (37.0-47.0) L Mean Corpuscular Volume 94 FL (80-99) Mean Corpuscular Hemoglobin 27.6 PG (27.0-31.0) Mean Corpuscular Hemoglobin Concent 29.3 G/DL (32.0-36.0) L Red Cell Distribution Width 17.8 % (11.6-14.8) H Platelet Count 203 K/UL (150-450) Mean Platelet Volume 6.1 FL (6.5-10.1) L Neutrophils (%) (Auto) 70.7 % (45.0-75.0) Lymphocytes (%) (Auto) 15.7 % (20.0-45.0) L Monocytes (%) (Auto) 5.4 % (1.0-10.0) Eosinophils (%) (Auto) 6.7 % (0.0-3.0) H Basophils (%) (Auto) 1.5 % (0.0-2.0) Urine Total Volume 24 Hours Pending Urine Creatinine 24 Hour Pending Urine Total Protein Timed Pending Urine Protein/Creatinine Ratio Pending Urine Albumin (%) Pending Urine Uwict-2-Ocayjexwo (%) Pending Urine Tyrqr-9-Dbpbzucwt (%) Pending Urine Beta-Globulin (%) Pending Urine Gamma Globulin (%) Pending Urine Protein Electrophoresis Intrp Pending Current Medications Medications (Trade) Dose Ordered Sig/Lucy Route PRN Reason Start Time Stop Time Status Last Admin Dose Admin Acetaminophen (Tylenol) 650 mg Q4H PRN GT Mild Pain, Temp >100.5 05/16/20 17:45 06/15/20 17:44 05/21/20 21:00 Acetaminophen/ Hydrocodone Bitart ([place] 5/325) 1 tab Q8H PRN GT For Pain 05/16/20 19:45 05/23/20 19:44 Al Hydroxide/Mg Hydroxide (Mylanta) 30 ml Q4H PRN GT Abdominal cramps 05/16/20 17:45 06/15/20 17:44 Ascorbic Acid (Vitamin C) 500 mg DAILY GT 05/17/20 09:00 06/16/20 08:59 05/22/20 08:40 Clonidine HCl (Catapres Tab) 0.1 mg Q6H PRN GT SBP>160 or DBP>90 05/16/20 19:45 08/14/20 19:44 Diltiazem HCl (Cardizem Tab) 30 mg EVERY 8 HOURS GT 05/16/20 22:00 06/15/20 21:59 05/22/20 05:44 Diphenhydramine HCl (Benadryl) 25 mg Q6H PRN NG Itching 05/16/20 21:45 06/15/20 21:44 05/22/20 02:30 Epoetin Liam (Epoetin Liam-EPBX(NON ESRD)) 10,000 unit TUE-TUE-TUE SUBQ 05/16/20 21:00 08/14/20 20:59 05/21/20 20:59 Famotidine (Pepcid) 20 mg BID GT 05/17/20 09:00 08/15/20 08:59 05/22/20 08:40 Levothyroxine Sodium (Synthroid) 100 mcg DAILY@0630 GT 05/17/20 06:30 06/16/20 06:29 05/22/20 05:44 Metoprolol Tartrate (Lopressor) 12.5 mg Q12HR GT 05/16/20 21:00 08/14/20 20:59 05/22/20 08:39 Multivitamins (Multivitamins W/ Minerals 15ml Liquid) 15 ml DAILY GT 05/17/20 09:00 06/16/20 08:59 05/22/20 08:39 Piperacillin Sod/ Tazobactam Sod 3.375 gm/Sodium Chloride 110 ml @ 27.5 mls/hr Q8HR IVPB 05/16/20 22:00 05/23/20 21:59 05/22/20 05:39 Zinc Sulfate (Zinc Sulfate) 220 mg DAILY GT 05/17/20 09:00 08/15/20 08:59 05/22/20 08:40 Arnoldo West MD May 22, 2020 12:07
--- NOTE | 2020-05-22 13:18 | General Progress Note ---
Subjective Allergies: Coded Allergies: No Known Allergies (Unverified , 02/09/20) Subjective Above noted no events tolerating feeds stools liquid - via rectal tube Objective Last 24 Hour Vital Signs Date Time Temp Pulse Resp B/P (MAP) Pulse Ox O2 Delivery O2 Flow Rate FiO2 05/22/20 12:01 40 05/22/20 12:00 113 05/22/20 12:00 Mechanical Ventilator 05/22/20 11:40 99.1 109 20 105/62 (76) 100 05/22/20 10:56 100 14 50 05/22/20 08:39 110 120/71 05/22/20 08:00 98.8 110 18 120/71 (87) 100 05/22/20 08:00 Mechanical Ventilator 05/22/20 08:00 107 05/22/20 08:00 40 05/22/20 07:00 104 15 50 05/22/20 05:44 100 122/72 05/22/20 04:00 Mechanical Ventilator 05/22/20 04:00 50 05/22/20 04:00 98.2 100 17 127/82 (97) 100 05/22/20 03:27 99 05/22/20 02:44 94 18 50 05/22/20 00:00 98.4 104 17 114/69 (84) 100 05/22/20 00:00 Mechanical Ventilator 05/21/20 23:30 112 05/21/20 22:40 89 19 50 05/21/20 22:27 111 110/78 05/21/20 21:30 98.9 05/21/20 20:59 116 112/73 05/21/20 20:00 99.5 104 18 112/73 (86) 100 05/21/20 20:00 Mechanical Ventilator 05/21/20 20:00 50 05/21/20 19:06 119 05/21/20 19:05 106 24 50 05/21/20 16:00 99.0 107 18 130/71 (90) 100 05/21/20 16:00 Mechanical Ventilator 05/21/20 16:00 50 05/21/20 15:26 103 21 50 05/21/20 15:14 112 05/21/20 14:33 110 118/73 Intake and Output 05/21/20 05/22/20 19:00 07:00 Intake Total 850 ml 704.5 ml Balance 850 ml 704.5 ml Intake Free Water 190 ml IV Total 164.5 ml Tube Feeding 660 ml 540 ml Laboratory Tests 05/22/20 05:15: White Blood Count 6.8, Red Blood Count 3.90L, Hemoglobin 10.8L, Hematocrit 36.8L , Mean Corpuscular Volume 94, Mean Corpuscular Hemoglobin 27.6, Mean Corpuscular Hemoglobin Concent 29.3L, Red Cell Distribution Width 17.8H, Platelet Count 203, Mean Platelet Volume 6.1L, Neutrophils (%) (Auto) 70.7, Lymphocytes (%) (Auto) 15.7L, Monocytes (%) (Auto) 5.4, Eosinophils (%) (Auto) 6.7H, Basophils (%) (Auto) 1.5 05/22/20 10:30: Urine Total Volume 24 Hours [Pending], Urine Creatinine 24 Hour [Pending], Urine Total Protein Timed [Pending], Urine Protein/Creatinine Ratio [Pending], Urine Albumin (%) [Pending], Urine Swrmn-0-Bsbnnctvi (%) [Pending], Urine Oqddj-2-Pwqbozozn (%) [Pending], Urine Beta-Globulin (%) [Pending], Urine Gamma Globulin (%) [Pending], Urine Protein Electrophoresis Intrp [Pending] Height (Feet): 5 Height (Inches): 2.00 Weight (Pounds): 125 Objective Thin woman in J[place] no distress (+) diffuse skin disease NCAT neck supple , (+) Trach CTA RR abd soft NT ND, GT no edema Assessment/Plan Assessment/Plan: Assessment - Anemia, but with brown OB (+) stools - Diarrhea - C Diff (-) , ? tube feed related - H&H stable - Fever, PNA - Respiratory failure - Dysphagia / GT - h/o BRCA - skin disorder Recommendations - transfuse PRN - change TF to Vital AF trial - conservative f/u per discussion with son - PPI - monitor labs - Priti Justice MD May 22, 2020 13:18
[2020-05-22] MEDS: Meropenem 1 GM in NS 55 ML IVPB SCH ×2 (13:49→21:46)
--- NOTE | 2020-05-22 14:05 | NUR ---
NURSE NOTES:G tube feeding and tubing changed per MD order to run Vital A.F @70ML hour for 20 hours, hold [id number].
[2020-05-22] MEDS ORDERED: NS 275ml ONE (14:21)
[2020-05-22] MEDS ORDERED: Sterile Water Irrig 1000ml IRRIG ONE (14:21)
[2020-05-22] MEDS ORDERED: Tubing IV Secondary IV ONE ×2 (14:21→21:22)
[2020-05-22 16:00] VITALS: BP 133/77
--- NOTE | 2020-05-22 16:21 | NUR ---
NURSE NOTES:Patient bathed and changed, optifoam replaced on sacral area.
--- NOTE | 2020-05-22 16:30 | NUR ---
NURSE NOTES:Patient taken off of restraints as patient is calm and cooperative, no need for restraints at this time. Patient has not attempted to remove IV lines or trach, will monitor closely.
--- NOTE | 2020-05-22 19:27 | NUR ---
NURSE HAND-OFF REPORT: Important Events on Shift:Restraints removed, patient follows commands. Patient Status: stable Diet: Vital A.F @70Ml/HR for 20 hours hold [id number] Pending Orders: Pending Results/Labs: Pending MD notification: Latest Vital Signs: Temperature 99.1 , Pulse 105 , B/P 133 /77 , Respiratory Rate 20 , O2 SAT 100 , Mechanical Ventilator, O2 Flow Rate . Vital Sign Comment: EKG Rhythm: Sinus Tachycardia Rhythm change?: N MD Notified?: N - MD Response: Latest Hope Fall Score: 35 Fall Risk: Medium Risk Safety Measures: Call light Within Reach, Bed Alarm Zone 1, Side Rails Side Rails x2, Bed position Low and Locked. Fall Precautions: Yellow Socks Yellow Gown Door Sign Patient Fall Education Report given to MAGI Zimmerman.
--- NOTE | 2020-05-22 19:30 | NUR ---
NURSE NOTES: Patient received from MAGI Salinas under the care of Dr. Medina for the admitting dx. of anemia. Patient NKA and full code status. On PUI isolation. Fall, isolation, and aspiration precaution observed and maintained at all times. Patient is alert and oriented x2-3, responsive with gestures and mouthing words in [place]. Patient tolerating vent settings well. No apparent distress or discomfort noted. Denies pain at this time. Will continue to monitor. Addendum: 05/22/20 at 2001 by Erasmo Iraheta RN RN Patient no longer on PUI isolation
[2020-05-22 20:00] VITALS: BP 120/75
[2020-05-22] MEDS ORDERED: NS 500ML ONE (21:22)
--- NOTE | 2020-05-22 22:00 | NUR ---
NURSE NOTES: Patient asleep, but easily arousable. Tolerating vent settings well. No acute distress noted. Will continue to monitor.
[2020-05-23] VITALS: BP 111/65
[2020-05-23] MEDS: DiphenhydrAMINE 25mg/10ml Elixir NG PRN (00:44)
[2020-05-23] MEDS: Acetaminophen 650mg/20.3ml GT PRN ×2 (00:45→08:30)
--- NOTE | 2020-05-23 01:00 | NUR ---
NURSE NOTES: Patient awake complaining of pain a dn itching. non-pharmacological interventions provided for pain but were ineffective. PRN medications provided. Will continue to monitor.
[2020-05-23 04:00] VITALS: BP 128/70
[2020-05-23] MEDS: dilTIAZem HCl 30mg tab GT SCH ×3 (05:13→22:00)
[2020-05-23] MEDS: Meropenem 1 GM in NS 55 ML IVPB SCH ×3 (05:13→22:03)
[2020-05-23 05:33] LABS: BASOPHILS % (AUTO) 1.3 % (0.0-2.0); EOSINOPHILS % (AUTO) 8.2 % (0.0-3.0); HEMATOCRIT 30.1 % (37.0-47.0); HEMOGLOBIN 9.7 G/DL (12.0-16.0); LYMPHOCYTES % (AUTO) 11.4 % (20.0-45.0); MEAN CORPUSCULAR VOLUME 87 FL (80-99); NEUTROPHILS % (AUTO) 75.2 % (45.0-75.0); PLATELET COUNT 179 K/UL (150-450); RED BLOOD COUNT 3.48 M/UL (4.20-5.40); RED CELL DISTRIBUTION WIDTH 18.7 % (11.6-14.8); WHITE BLOOD COUNT 6.3 K/UL (4.8-10.8)
--- NOTE | 2020-05-23 06:00 | NUR ---
RD ASSESSMENT & RECOMMENDATIONS SEE CARE ACTIVITY FOR COMPLETE ASSESSMENT DAILY ESTIMATED NEEDS: Needs based on Wound, critical care, wt loss, [employer] TF/ 52kg 25-35 kcals/kg 8726-0906 total kcals 1.25-2 g protein/kg 65-104 g total protein 25-30 mL/kg 1839-3371 total fluid mLs NUTRITION DIAGNOSIS: Increased kcal and pro needs r/t wound healing as evidenced by admitted w/ wounds @ BL buttocks, pending eval, suspected significant wt loss of 17lbs/10.5% in <3 months. CURRENT TF:Now Vital AF 1.2 @ 70ml/hr x 20 hrs ENTERAL NUTRITION RECOMMENDATIONS: Continue Vital AF 1.2 @ 70ml/hr x 20 hrs to provide 1400ml, 1680kcal, 105g prot, 1135ml free water - Rec to continue elemental TF formula to help w/ diarrhea - TF @ goal meets 100% est kcal/prot needs - HOB over 30 degrees/ H2O flush of 100ml q 6 hrs ADDITIONAL RECOMMENDATIONS: 1) Wound care: add GT BID, continue Vit C and ZnSO4 2) Per SNF: 61 inches (5'1") and wt= 145lbs (05/02/20) -> daily calibrated bedscale wt 3) Monitor BGs, need for NISS- h/o DM 4) Monitor lytes, replete as needed 5) Updated CMP, monitor hydration status (elev Na + BUN) .
--- NOTE | 2020-05-23 07:08 | Hematology/Onc Progress Note ---
Assessment/Plan Assessment/Plan Assessment and Recs # Breast cancer, stage IV, on chemotherapy as outpatient --> obtain further records, order placed-->last chemo was march 2019, s/p 5 cycles --> katie explain lymphadenopathy as seen on ct --> Ct repeated with contrast shows no significant lad # Pancytopenia is due to recent chemo and infection --> imaging has been reviewed, does have splenomegaly --> hep and hiv are neg --> imaging abd reviewed # Pneumonia with b/l infiltrates --> s/p abx --> per ID # Symptomatic anemia -> s/p tranfusion --> hgb 10.8-->9.7 # Resp failure s/p trach/vent # Splenomegaly. 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 Appreciate consultation and jelly Rn/Md Subjective Constitutional: Denies: no symptoms, chills, fever, malaise, weakness, other HEENT: Denies: no symptoms, eye pain, blurred vision, tearing, double vision, ear pain, ear discharge, nose pain, nose congestion, throat pain, throat swelling, mouth pain, mouth swelling, other Cardiovascular: Denies: no symptoms, chest pain, edema, irregular heart rate, lightheadedness, palpitations, syncope, other Respiratory: Denies: no symptoms, cough, shortness of breath, SOB with excertion, SOB at rest, sputum, wheezing, other Genitourinary: Denies: no symptoms, burning, discharge, frequency, flank pain, hematuria, incontinence, pain, urgency, other Neurologic/Psychiatric: Denies: no symptoms, anxiety, depressed, emotional problems, headache, numbness, paresthesia, pre-existing deficit, seizure, tingling, tremors, weakness, other Endocrine: Denies: no symptoms, excessive sweating, flushing, intolerance to cold, intolerance to heat, increased hunger, increased thirst, increased urine, unexplained weight gain, unexplained weight loss, other Hematologic/Lymphatic: Denies: no symptoms, anemia, easy bleeding, easy bruising, adenopathy, other Allergies: Coded Allergies: No Known Allergies (Unverified , 02/09/20) Subjective 05/22 on bipap, desaturates overnight, no bleeding, smear reviewed 05/23 is awake, with itching, meds noted, no bleeding, dw rn Objective Objective Current Medications Medications (Trade) Dose Ordered Sig/Lucy Route PRN Reason Start Time Stop Time Status Last Admin Dose Admin Acetaminophen (Tylenol) 650 mg Q4H PRN GT Mild Pain, Temp >100.5 05/16/20 17:45 06/15/20 17:44 05/23/20 00:45 Acetaminophen/ Hydrocodone Bitart ([place] 5/325) 1 tab Q8H PRN GT For Pain 05/16/20 19:45 05/23/20 19:44 Al Hydroxide/Mg Hydroxide (Mylanta) 30 ml Q4H PRN GT Abdominal cramps 05/16/20 17:45 06/15/20 17:44 Ascorbic Acid (Vitamin C) 500 mg DAILY GT 05/17/20 09:00 06/16/20 08:59 05/22/20 08:40 Clonidine HCl (Catapres Tab) 0.1 mg Q6H PRN GT SBP>160 or DBP>90 05/16/20 19:45 08/14/20 19:44 Diltiazem HCl (Cardizem Tab) 30 mg EVERY 8 HOURS GT 05/16/20 22:00 06/15/20 21:59 05/23/20 05:13 Diphenhydramine HCl (Benadryl) 25 mg Q6H PRN NG Itching 05/16/20 21:45 06/15/20 21:44 05/23/20 00:44 Epoetin Liam (Epoetin Liam-EPBX(NON ESRD)) 10,000 unit TUE-TUE-TUE SUBQ 05/16/20 21:00 08/14/20 20:59 05/21/20 20:59 Famotidine (Pepcid) 20 mg BID GT 05/17/20 09:00 08/15/20 08:59 05/22/20 17:34 Levothyroxine Sodium (Synthroid) 100 mcg DAILY@0630 GT 05/17/20 06:30 06/16/20 06:29 05/23/20 05:13 Meropenem 1 gm/ Sodium Chloride 55 ml @ 110 mls/hr Q8HR IVPB 05/22/20 13:00 05/27/20 12:59 05/23/20 05:13 Metoprolol Tartrate (Lopressor) 12.5 mg Q12HR GT 05/16/20 21:00 08/14/20 20:59 05/22/20 21:44 Multivitamins (Multivitamins W/ Minerals 15ml Liquid) 15 ml DAILY GT 05/17/20 09:00 06/16/20 08:59 05/22/20 08:39 Zinc Sulfate (Zinc Sulfate) 220 mg DAILY GT 05/17/20 09:00 08/15/20 08:59 05/22/20 08:40 Last 24 Hour Vital Signs Date Time Temp Pulse Resp B/P (MAP) Pulse Ox O2 Delivery O2 Flow Rate FiO2 05/23/20 05:13 121 128/70 05/23/20 04:00 40 05/23/20 04:00 Mechanical Ventilator 05/23/20 04:00 98.6 114 18 128/70 (89) 100 05/23/20 04:00 121 05/23/20 03:00 100 17 50 05/23/20 00:00 Mechanical Ventilator 05/23/20 00:00 100.3 103 20 111/65 (80) 100 05/23/20 00:00 100 05/22/20 23:00 107 17 50 05/22/20 21:44 109 133/77 05/22/20 21:43 109 133/77 05/22/20 20:00 109 05/22/20 20:00 Mechanical Ventilator 05/22/20 20:00 40 05/22/20 20:00 99.8 121 20 120/75 (90) 100 05/22/20 19:35 105 16 50 05/22/20 16:24 105 05/22/20 16:00 40 05/22/20 16:00 99.1 101 20 133/77 (95) 100 05/22/20 16:00 Mechanical Ventilator 05/22/20 15:40 98 15 50 05/22/20 13:49 113 105/62 05/22/20 12:01 40 05/22/20 12:00 113 05/22/20 12:00 Mechanical Ventilator 05/22/20 11:40 99.1 109 20 105/62 (76) 100 05/22/20 10:56 100 14 50 05/22/20 08:39 110 120/71 05/22/20 08:00 98.8 110 18 120/71 (87) 100 05/22/20 08:00 Mechanical Ventilator 05/22/20 08:00 107 05/22/20 08:00 40 05/22/20 07:00 104 15 50 05/22/20 05:44 100 122/72 05/22/20 04:00 Mechanical Ventilator 05/22/20 04:00 50 05/22/20 04:00 98.2 100 17 127/82 (97) 100 05/22/20 03:27 99 05/22/20 02:44 94 18 50 05/22/20 00:00 98.4 104 17 114/69 (84) 100 05/22/20 00:00 Mechanical Ventilator 05/21/20 23:30 112 05/21/20 22:40 89 19 50 05/21/20 22:27 111 110/78 05/21/20 21:30 98.9 05/21/20 20:59 116 112/73 05/21/20 20:00 99.5 104 18 112/73 (86) 100 05/21/20 20:00 Mechanical Ventilator 05/21/20 20:00 50 05/21/20 19:06 119 05/21/20 19:05 106 24 50 05/21/20 16:00 99.0 107 18 130/71 (90) 100 05/21/20 16:00 Mechanical Ventilator 05/21/20 16:00 50 05/21/20 15:26 103 21 50 05/21/20 15:14 112 05/21/20 14:33 110 118/73 05/21/20 12:00 97 05/21/20 12:00 50 05/21/20 12:00 99.1 110 20 119/76 (90) 100 05/21/20 12:00 Mechanical Ventilator 05/21/20 11:37 110 14 97 Mechanical Ventilator 50 05/21/20 11:28 110 14 50 05/21/20 08:41 120 141/86 05/21/20 08:00 110 05/21/20 08:00 Mechanical Ventilator 05/21/20 08:00 50 05/21/20 08:00 98.6 111 18 141/92 (108) 100 05/21/20 07:14 96 16 50 Intake and Output 05/22/20 05/23/20 19:00 07:00 Intake Total 660 ml 690 ml Output Total 400 ml Balance 260 ml 690 ml Intake Free Water 120 ml 150 ml Tube Feeding 540 ml 540 ml Output Urine Total 300 ml Stool Total 100 ml Labs Test 05/21/20 09:00 05/22/20 05:15 05/22/20 10:30 05/23/20 04:24 White Blood Count 6.5 K/UL (4.8-10.8) 6.8 K/UL (4.8-10.8) 6.3 K/UL (4.8-10.8) Red Blood Count 3.89 M/UL (4.20-5.40) 3.90 M/UL (4.20-5.40) 3.48 M/UL (4.20-5.40) Hemoglobin 10.8 G/DL (12.0-16.0) 10.8 G/DL (12.0-16.0) 9.7 G/DL (12.0-16.0) Hematocrit 35.2 % (37.0-47.0) 36.8 % (37.0-47.0) 30.1 % (37.0-47.0) Mean Corpuscular Volume 91 FL (80-99) 94 FL (80-99) 87 FL (80-99) Mean Corpuscular Hemoglobin 27.7 PG (27.0-31.0) 27.6 PG (27.0-31.0) 27.8 PG (27.0-31.0) Mean Corpuscular Hemoglobin Concent 30.5 G/DL (32.0-36.0) 29.3 G/DL (32.0-36.0) 32.1 G/DL (32.0-36.0) Red Cell Distribution Width 18.1 % (11.6-14.8) 17.8 % (11.6-14.8) 18.7 % (11.6-14.8) Platelet Count 211 K/UL (150-450) 203 K/UL (150-450) 179 K/UL (150-450) Mean Platelet Volume 6.1 FL (6.5-10.1) 6.1 FL (6.5-10.1) 7.1 FL (6.5-10.1) Neutrophils (%) (Auto) 72.8 % (45.0-75.0) 70.7 % (45.0-75.0) 75.2 % (45.0-75.0) Lymphocytes (%) (Auto) 14.8 % (20.0-45.0) 15.7 % (20.0-45.0) 11.4 % (20.0-45.0) Monocytes (%) (Auto) 4.9 % (1.0-10.0) 5.4 % (1.0-10.0) 4.0 % (1.0-10.0) Eosinophils (%) (Auto) 6.6 % (0.0-3.0) 6.7 % (0.0-3.0) 8.2 % (0.0-3.0) Basophils (%) (Auto) 0.9 % (0.0-2.0) 1.5 % (0.0-2.0) 1.3 % (0.0-2.0) Sodium Level 150 MMOL/L (136-145) Potassium Level 3.5 MMOL/L (3.5-5.1) Chloride Level 115 MMOL/L (98-107) Carbon Dioxide Level 33 MMOL/L (21-32) Anion Gap 2 mmol/L (5-15) Blood Urea Nitrogen 20 mg/dL (7-18) Creatinine 0.7 MG/DL (0.55-1.30) Estimat Glomerular Filtration Rate > 60 mL/min (>60) Glucose Level 115 MG/DL (74-106) Calcium Level 8.3 MG/DL (8.5-10.1) Total Bilirubin 0.5 MG/DL (0.2-1.0) Aspartate Amino Transf (AST/SGOT) 34 U/L (15-37) Alanine Aminotransferase (ALT/SGPT) < 6 U/L (12-78) Alkaline Phosphatase 336 U/L (46-116) Total Protein 10.4 G/DL (6.4-8.2) Albumin 1.8 G/DL (3.4-5.0) Globulin 8.6 g/dL Albumin/Globulin Ratio 0.2 (1.0-2.7) Height (Feet): 5 Height (Inches): 2.00 Weight (Pounds): 125 Objective PE General: Awake and alert, nad HEENT: NC/AT. EOMI. Neck: Tracheostomy in place. Cardiovascular: Tachycardic. S1 and S2 normal. Resp: Vent dependent through tracheostomy. Abdomen: Abdomen is soft, nondistended. G-tube in place Skin: Diffuse hypopigmentation over the skin. Patient is itchy MSK: Normal tone and bulk. Moving all extremities. Neuro: Awake and alert. Mentating appropriately. Toby Mauricio MD May 23, 2020 07:08
--- NOTE | 2020-05-23 07:12 | NUR ---
NURSE HAND-OFF REPORT: Important Events on Shift: Feeding held for GI rest x 4 hours Patient Status: Stable Diet: GT Pending Orders: Pending Results/Labs: Pending MD notification: Latest Vital Signs: Temperature 98.6 , Pulse 121 , B/P 128 /70 , Respiratory Rate 18 , O2 SAT 100 , Mechanical Ventilator, O2 Flow Rate . Vital Sign Comment: EKG Rhythm: Sinus Tachycardia Rhythm change?: N MD Notified?: N - MD Response: Latest Hope Fall Score: 35 Fall Risk: Medium Risk Safety Measures: Call light Within Reach, Bed Alarm Zone 1, Side Rails Side Rails x2, Bed position Low and Locked. Fall Precautions: Yellow Socks Yellow Gown Door Sign Patient Fall Education Report given to MAGI Salinas.
--- NOTE | 2020-05-23 07:42 | NUR ---
NURSE NOTES:Handoff received from MAGI Cortez. Patient received resting in bed, no acute signs of distress noted. Patient is on trach to vent with settings: Shiley 8, AC 14, FI02 50% and peep of 5, communicates via facial expressions, body movements and mouthing words. Patient has g tube being held as patient received synthroid, will turn on again at 0900 per MD order. Vann is patent and draining to gravity, patient also has rectal tube patent and draining, Patient skin is dry and flaking. L hand IV site site is clean dry and intact, saline locked. Patient is on teletypesetter monitor. Isolation precautions for MRSA as well as fall and aspiration precautions being followed, bed in the low and locked position with call light within reach. Will follow plan of care.
[2020-05-23 08:00] VITALS: BP 125/64
[2020-05-23] MEDS: Metoprolol Tartrate 12.5mg TAB GT SCH ×2 (08:30→20:59)
[2020-05-23] MEDS: Multivitamins W/Minerals 15 ML UDC GT SCH (08:30)
[2020-05-23] MEDS: Ascorbic Acid 500mg tab GT SCH (08:30)
[2020-05-23] MEDS: Zinc Sulfate 220mg GT SCH (08:31)
--- NOTE | 2020-05-23 09:00 | NUR ---
NURSE NOTES:G tube feeding resumed per order to hold [id number].
--- NOTE | 2020-05-23 09:28 | Pulmonology Progress Note ---
Subjective ROS Limited/Unobtainable: Yes Constitutional: Denies: fever Allergies: Coded Allergies: No Known Allergies (Unverified , 02/09/20) Subjective care noted anemic elevated CRP ++ lymphadenopathy enlarged spleen and liver lesion Objective Last 24 Hour Vital Signs Date Time Temp Pulse Resp B/P (MAP) Pulse Ox O2 Delivery O2 Flow Rate FiO2 05/23/20 08:30 107 125/64 05/23/20 08:00 40 05/23/20 08:00 Mechanical Ventilator 05/23/20 08:00 101.8 107 19 125/64 (84) 100 05/23/20 07:05 101 17 50 05/23/20 05:13 121 128/70 05/23/20 04:00 40 05/23/20 04:00 Mechanical Ventilator 05/23/20 04:00 98.6 114 18 128/70 (89) 100 05/23/20 04:00 121 05/23/20 03:00 100 17 50 05/23/20 00:00 Mechanical Ventilator 05/23/20 00:00 100.3 103 20 111/65 (80) 100 05/23/20 00:00 100 05/22/20 23:00 107 17 50 05/22/20 21:44 109 133/77 05/22/20 21:43 109 133/77 05/22/20 20:00 109 05/22/20 20:00 Mechanical Ventilator 05/22/20 20:00 40 05/22/20 20:00 99.8 121 20 120/75 (90) 100 05/22/20 19:35 105 16 50 05/22/20 16:24 105 05/22/20 16:00 40 05/22/20 16:00 99.1 101 20 133/77 (95) 100 05/22/20 16:00 Mechanical Ventilator 05/22/20 15:40 98 15 50 05/22/20 13:49 113 105/62 05/22/20 12:01 40 05/22/20 12:00 113 05/22/20 12:00 Mechanical Ventilator 05/22/20 11:40 99.1 109 20 105/62 (76) 100 05/22/20 10:56 100 14 50 Intake and Output 05/22/20 05/23/20 19:00 07:00 Intake Total 660 ml 690 ml Output Total 400 ml Balance 260 ml 690 ml Intake Free Water 120 ml 150 ml Tube Feeding 540 ml 540 ml Output Urine Total 300 ml Stool Total 100 ml Objective WDWN NAD trach reduced breath sounds bilaterally without rhonchi or wheeze [id number] without MRG NABS nontender Gt no CCE nonfocal Laboratory Tests 05/22/20 10:30: Urine Total Volume 24 Hours [Pending], Urine Creatinine 24 Hour [Pending], Urine Total Protein Timed [Pending], Urine Protein/Creatinine Ratio [Pending], Urine Albumin (%) [Pending], Urine Vfcbc-6-Vgqxtdaka (%) [Pending], Urine Txkqd-3-Skvzscwkz (%) [Pending], Urine Beta-Globulin (%) [Pending], Urine Gamma Globulin (%) [Pending], Urine Protein Electrophoresis Intrp [Pending] 05/23/20 04:24: White Blood Count 6.3, Red Blood Count 3.48L, Hemoglobin 9.7L, Hematocrit 30.1L, Mean Corpuscular Volume 87, Mean Corpuscular Hemoglobin 27.8, Mean Corpuscular Hemoglobin Concent 32.1, Red Cell Distribution Width 18.7H, Platelet Count 179, Mean Platelet Volume 7.1, Neutrophils (%) (Auto) 75.2H, Lymphocytes (%) (Auto) 11.4L, Monocytes (%) (Auto) 4.0, Eosinophils (%) (Auto) 8.2H, Basophils (%) (Auto) 1.3 Current Medications Medications (Trade) Dose Ordered Sig/Lucy Route PRN Reason Start Time Stop Time Status Last Admin Dose Admin Acetaminophen (Tylenol) 650 mg Q4H PRN GT Mild Pain, Temp >100.5 05/16/20 17:45 06/15/20 17:44 05/23/20 08:30 Acetaminophen/ Hydrocodone Bitart ([place] 5/325) 1 tab Q8H PRN GT For Pain 05/16/20 19:45 05/23/20 19:44 Al Hydroxide/Mg Hydroxide (Mylanta) 30 ml Q4H PRN GT Abdominal cramps 05/16/20 17:45 06/15/20 17:44 Ascorbic Acid (Vitamin C) 500 mg DAILY GT 05/17/20 09:00 06/16/20 08:59 05/23/20 08:30 Clonidine HCl (Catapres Tab) 0.1 mg Q6H PRN GT SBP>160 or DBP>90 05/16/20 19:45 08/14/20 19:44 Diltiazem HCl (Cardizem Tab) 30 mg EVERY 8 HOURS GT 05/16/20 22:00 06/15/20 21:59 05/23/20 05:13 Diphenhydramine HCl (Benadryl) 25 mg Q6H PRN NG Itching 05/16/20 21:45 06/15/20 21:44 05/23/20 00:44 Epoetin Liam (Epoetin Liam-EPBX(NON ESRD)) 10,000 unit TUE-TUE-TUE SUBQ 05/16/20 21:00 08/14/20 20:59 05/21/20 20:59 Famotidine (Pepcid) 20 mg BID GT 05/17/20 09:00 08/15/20 08:59 05/23/20 08:30 Levothyroxine Sodium (Synthroid) 100 mcg DAILY@0630 GT 05/17/20 06:30 06/16/20 06:29 05/23/20 05:13 Meropenem 1 gm/ Sodium Chloride 55 ml @ 110 mls/hr Q8HR IVPB 05/22/20 13:00 05/27/20 12:59 05/23/20 05:13 Metoprolol Tartrate (Lopressor) 12.5 mg Q12HR GT 05/16/20 21:00 08/14/20 20:59 05/23/20 08:30 Multivitamins (Multivitamins W/ Minerals 15ml Liquid) 15 ml DAILY GT 05/17/20 09:00 06/16/20 08:59 05/23/20 08:30 Zinc Sulfate (Zinc Sulfate) 220 mg DAILY GT 05/17/20 09:00 08/15/20 08:59 05/23/20 08:31 Assessment/Plan Assessment/Plan Anemia, status post blood transfusion history of UTI Chronic respiratory failure , ventilator dependent with tracheostomy status Dysphagia, feeding by G-tube History of sepsis Decubitus skin ulcer present on admission Chronic dermatitis Hypotension pericardial effusion small elevated CRP pulmonary hypertension ++lymphadenopathy splenomegaly liver lesion Breast cancer PLAN heme/onc eval noted and discussed nutrition care reviewed vent support CT body reviewed reviewed echo update family once further evaluate by oncology impression, plan, and exam edited and reviewed in detail care discussed with Stevenson Eemrson MD May 23, 2020 09:28
--- NOTE | 2020-05-23 10:13 | General Progress Note ---
Subjective Allergies: Coded Allergies: No Known Allergies (Unverified , 02/09/20) Subjective Above noted no events tolerating feeds stools liquid - via rectal tube (100 cc) Objective Last 24 Hour Vital Signs Date Time Temp Pulse Resp B/P (MAP) Pulse Ox O2 Delivery O2 Flow Rate FiO2 05/23/20 08:30 107 125/64 05/23/20 08:00 112 05/23/20 08:00 40 05/23/20 08:00 Mechanical Ventilator 05/23/20 08:00 101.8 107 19 125/64 (84) 100 05/23/20 07:05 101 17 50 05/23/20 05:13 121 128/70 05/23/20 04:00 40 05/23/20 04:00 Mechanical Ventilator 05/23/20 04:00 98.6 114 18 128/70 (89) 100 05/23/20 04:00 121 05/23/20 03:00 100 17 50 05/23/20 00:00 Mechanical Ventilator 05/23/20 00:00 100.3 103 20 111/65 (80) 100 05/23/20 00:00 100 05/22/20 23:00 107 17 50 05/22/20 21:44 109 133/77 05/22/20 21:43 109 133/77 05/22/20 20:00 109 05/22/20 20:00 Mechanical Ventilator 05/22/20 20:00 40 05/22/20 20:00 99.8 121 20 120/75 (90) 100 05/22/20 19:35 105 16 50 05/22/20 16:24 105 05/22/20 16:00 40 05/22/20 16:00 99.1 101 20 133/77 (95) 100 05/22/20 16:00 Mechanical Ventilator 05/22/20 15:40 98 15 50 05/22/20 13:49 113 105/62 05/22/20 12:01 40 05/22/20 12:00 113 05/22/20 12:00 Mechanical Ventilator 05/22/20 11:40 99.1 109 20 105/62 (76) 100 05/22/20 10:56 100 14 50 Intake and Output 0 05/22/20 05/23/20 19:00 07:00 Intake Total 660 ml 690 ml Output Total 400 ml Balance 260 ml 690 ml Intake Free Water 120 ml 150 ml Tube Feeding 540 ml 540 ml Output Urine Total 300 ml Stool Total 100 ml Laboratory Tests 05/22/20 10:30: Urine Total Volume 24 Hours [Pending], Urine Creatinine 24 Hour [Pending], Urine Total Protein Timed [Pending], Urine Protein/Creatinine Ratio [Pending], Urine Albumin (%) [Pending], Urine Zkmoc-6-Lazqidcft (%) [Pending], Urine Sjcbx-9-Gmhfzuvqf (%) [Pending], Urine Beta-Globulin (%) [Pending], Urine Gamma Globulin (%) [Pending], Urine Protein Electrophoresis Intrp [Pending] 05/23/20 04:24: White Blood Count 6.3, Red Blood Count 3.48L, Hemoglobin 9.7L, Hematocrit 30.1L, Mean Corpuscular Volume 87, Mean Corpuscular Hemoglobin 27.8, Mean Corpuscular Hemoglobin Concent 32.1, Red Cell Distribution Width 18.7H, Platelet Count 179, Mean Platelet Volume 7.1, Neutrophils (%) (Auto) 75.2H, Lymphocytes (%) (Auto) 1 1.4L, Monocytes (%) (Auto) 4.0, Eosinophils (%) (Auto) 8.2H, Basophils (%) (Auto) 1.3 Height (Feet): 5 Height (Inches): 2.00 Weight (Pounds): 125 Objective Thin woman in JAMES no distress (+) diffuse skin disease NCAT neck supple , (+) Trach CTA RR abd soft NT ND, GT no edema Assessment/Plan Assessment/Plan: Assessment - Anemia, but with brown OB (+) stools - Diarrhea - C Diff (-) , ? tube feed related - H&H stable - Fever, PNA - Respiratory failure - Dysphagia / GT - h/o BRCA - skin disorder - lymphadenopathy on CT - liver / renal lesions on CT - infectious vs malignant Recommendations - transfuse PRN - Vital AF trial - follow stool output - conservative f/u per discussion with son - PPI - monitor labs - abx per ID - Onc f/u - repeat CT imaging at later date Priti Sequeira MD May 23, 2020 10:13
--- NOTE | 2020-05-23 10:20 | NUR ---
NURSE NOTES:Gm tube feeding replaced with new bottle, lines also changed.
--- NOTE | 2020-05-23 11:21 | NUR ---
CASE MANAGEMENT:REVIEW 05/23/20 SI: BILATERAL PNA. 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
--- NOTE | 2020-05-23 11:31 | Infectious Diseases Prog Note ---
Assessment/Plan Assessment/Plan antibiotics : meropenem A 1. acenitobacter, proteus, pseudomonas pneumonia COVID 19 negative 2. breast cancer 3. respiratory failure s/p tracheostomy 4. ? 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 ? liver abscess P 1. continue meropenem 5 more days 2. will follow up cultures Subjective ROS Limited/Unobtainable: Yes Allergies: Coded Allergies: No Known Allergies (Unverified , 02/09/20) Objective Last 24 Hour Vital Signs Date Time Temp Pulse Resp B/P (MAP) Pulse Ox O2 Delivery O2 Flow Rate FiO2 05/23/20 08:30 107 125/64 05/23/20 08:00 112 05/23/20 08:00 40 05/23/20 08:00 Mechanical Ventilator 05/23/20 08:00 101.8 107 19 125/64 (84) 100 05/23/20 07:05 101 17 50 05/23/20 05:13 121 128/70 05/23/20 04:00 40 05/23/20 04:00 Mechanical Ventilator 05/23/20 04:00 98.6 114 18 128/70 (89) 100 05/23/20 04:00 121 05/23/20 03:00 100 17 50 05/23/20 00:00 Mechanical Ventilator 05/23/20 00:00 100.3 103 20 111/65 (80) 100 05/23/20 00:00 100 05/22/20 23:00 107 17 50 05/22/20 21:44 109 133/77 05/22/20 21:43 109 133/77 05/22/20 20:00 109 05/22/20 20:00 Mechanical Ventilator 05/22/20 20:00 40 05/22/20 20:00 99.8 121 20 120/75 (90) 100 05/22/20 19:35 105 16 50 05/22/20 16:24 105 05/22/20 16:00 40 05/22/20 16:00 99.1 101 20 133/77 (95) 100 05/22/20 16:00 Mechanical Ventilator 05/22/20 15:40 98 15 50 05/22/20 13:49 113 105/62 05/22/20 12:01 40 05/22/20 12:00 113 05/22/20 12:00 Mechanical Ventilator 05/22/20 11:40 99.1 109 20 105/62 (76) 100 Height (Feet): 5 Height (Inches): 2.00 Weight (Pounds): 125 HEENT: status post trach Respiratory/Chest: lungs clear Cardiovascular: normal rate, regular rhythm, no gallop/murmur Abdomen: soft, non tender, other - GT Extremities: other - + edema Laboratory Tests Test 05/23/20 04:24 White Blood Count 6.3 K/UL (4.8-10.8) Red Blood Count 3.48 M/UL (4.20-5.40) L Hemoglobin 9.7 G/DL (12.0-16.0) L Hematocrit 30.1 % (37.0-47.0) L Mean Corpuscular Volume 87 FL (80-99) Mean Corpuscular Hemoglobin 27.8 PG (27.0-31.0) Mean Corpuscular Hemoglobin Concent 32.1 G/DL (32.0-36.0) Red Cell Distribution Width 18.7 % (11.6-14.8) H Platelet Count 179 K/UL (150-450) Mean Platelet Volume 7.1 FL (6.5-10.1) Neutrophils (%) (Auto) 75.2 % (45.0-75.0) H Lymphocytes (%) (Auto) 11.4 % (20.0-45.0) L Monocytes (%) (Auto) 4.0 % (1.0-10.0) Eosinophils (%) (Auto) 8.2 % (0.0-3.0) H Basophils (%) (Auto) 1.3 % (0.0-2.0) Current Medications Medications (Trade) Dose Ordered Sig/Lucy Route PRN Reason Start Time Stop Time Status Last Admin Dose Admin Acetaminophen (Tylenol) 650 mg Q4H PRN GT Mild Pain, Temp >100.5 05/16/20 17:45 06/15/20 17:44 05/23/20 08:30 Acetaminophen/ Hydrocodone Bitart ([place] 5/325) 1 tab Q8H PRN GT For Pain 05/16/20 19:45 05/23/20 19:44 Al Hydroxide/Mg Hydroxide (Mylanta) 30 ml Q4H PRN GT Abdominal cramps 05/16/20 17:45 06/15/20 17:44 Ascorbic Acid (Vitamin C) 500 mg DAILY GT 05/17/20 09:00 06/16/20 08:59 05/23/20 08:30 Clonidine HCl (Catapres Tab) 0.1 mg Q6H PRN GT SBP>160 or DBP>90 05/16/20 19:45 08/14/20 19:44 Diltiazem HCl (Cardizem Tab) 30 mg EVERY 8 HOURS GT 05/16/20 22:00 06/15/20 21:59 05/23/20 05:13 Diphenhydramine HCl (Benadryl) 25 mg Q6H PRN NG Itching 05/16/20 21:45 06/15/20 21:44 05/23/20 00:44 Epoetin Liam (Epoetin Liam-EPBX(NON ESRD)) 10,000 unit TUE-TUE-TUE SUBQ 05/16/20 21:00 08/14/20 20:59 05/21/20 20:59 Famotidine (Pepcid) 20 mg BID GT 05/17/20 09:00 08/15/20 08:59 05/23/20 08:30 Levothyroxine Sodium (Synthroid) 100 mcg DAILY@0630 GT 05/17/20 06:30 06/16/20 06:29 05/23/20 05:13 Meropenem 1 gm/ Sodium Chloride 55 ml @ 110 mls/hr Q8HR IVPB 05/22/20 13:00 05/27/20 12:59 05/23/20 05:13 Metoprolol Tartrate (Lopressor) 12.5 mg Q12HR GT 05/16/20 21:00 08/14/20 20:59 05/23/20 08:30 Multivitamins (Multivitamins W/ Minerals 15ml Liquid) 15 ml DAILY GT 05/17/20 09:00 06/16/20 08:59 05/23/20 08:30 Zinc Sulfate (Zinc Sulfate) 220 mg DAILY GT 05/17/20 09:00 08/15/20 08:59 05/23/20 08:31 Hong Camacho MD May 23, 2020 11:31
[2020-05-23 12:00] VITALS: BP 115/68
--- NOTE | 2020-05-23 13:58 | Surgery Progress Note ---
Surgery Progress Note Subjective Additional Comments scratching skin will not use cream no n/v labs noted exam stable Objective Last 24 Hour Vital Signs Date Time Temp Pulse Resp B/P (MAP) Pulse Ox O2 Delivery O2 Flow Rate FiO2 05/23/20 12:00 40 05/23/20 12:00 97.4 114 18 115/68 (84) 99 05/23/20 12:00 Mechanical Ventilator 05/23/20 11:06 100 17 50 05/23/20 08:30 107 125/64 05/23/20 08:00 112 05/23/20 08:00 40 05/23/20 08:00 Mechanical Ventilator 05/23/20 08:00 101.8 107 19 125/64 (84) 100 05/23/20 07:05 101 17 50 05/23/20 05:13 121 128/70 05/23/20 04:00 40 05/23/20 04:00 Mechanical Ventilator 05/23/20 04:00 98.6 114 18 128/70 (89) 100 05/23/20 04:00 121 05/23/20 03:00 100 17 50 05/23/20 00:00 Mechanical Ventilator 05/23/20 00:00 100.3 103 20 111/65 (80) 100 05/23/20 00:00 100 05/22/20 23:00 107 17 50 05/22/20 21:44 109 133/77 05/22/20 21:43 109 133/77 05/22/20 20:00 109 05/22/20 20:00 Mechanical Ventilator 05/22/20 20:00 40 05/22/20 20:00 99.8 121 20 120/75 (90) 100 05/22/20 19:35 105 16 50 05/22/20 16:24 105 05/22/20 16:00 40 05/22/20 16:00 99.1 101 20 133/77 (95) 100 05/22/20 16:00 Mechanical Ventilator 05/22/20 15:40 98 15 50 I&O Intake and Output 05/22/20 05/23/20 19:00 07:00 Intake Total 660 ml 690 ml Output Total 400 ml Balance 260 ml 690 ml Intake Free Water 120 ml 150 ml Tube Feeding 540 ml 540 ml Output Urine Total 300 ml Stool Total 100 ml Dressing: dry Cardiovascular: RSR Respiratory: decreased breath sounds Abdomen: soft, non-tender, present bowel sounds Extremities: no tenderness, no cyanosis, other Laboratory Tests Test 05/23/20 04:24 White Blood Count 6.3 K/UL (4.8-10.8) Red Blood Count 3.48 M/UL (4.20-5.40) L Hemoglobin 9.7 G/DL (12.0-16.0) L Hematocrit 30.1 % (37.0-47.0) L Mean Corpuscular Volume 87 FL (80-99) Mean Corpuscular Hemoglobin 27.8 PG (27.0-31.0) Mean Corpuscular Hemoglobin Concent 32.1 G/DL (32.0-36.0) Red Cell Distribution Width 18.7 % (11.6-14.8) H Platelet Count 179 K/UL (150-450) Mean Platelet Volume 7.1 FL (6.5-10.1) Neutrophils (%) (Auto) 75.2 % (45.0-75.0) H Lymphocytes (%) (Auto) 11.4 % (20.0-45.0) L Monocytes (%) (Auto) 4.0 % (1.0-10.0) Eosinophils (%) (Auto) 8.2 % (0.0-3.0) H Basophils (%) (Auto) 1.3 % (0.0-2.0) Plan Problems: (1) Pneumonia (2) Symptomatic anemia (3) Decubitus skin ulcer Assessment & Plan: Pt presented on admission with Pressure Injuries, Tracheostomy,Alopecia, Generalized Hypopigmented Skin plaques. Few plaques noted to be open lesions but are pink and dry. Skin assessed under collar of trach and no areas of skin breakdown noted. Full thickness Pressure injury noted to R Buttocks(L)5.7cm x (W)1.7cm x (D)0.3cm. Base of wound is 90% beefy-red,10% slough. Borders are macerated . surrounding dry skin with hypopigmented plaques. Full thickness Pressure injury L Buttocks(L)4.6cm x (W)4.5cm. Base of wound has clusters wounds with intertwining bridges. Wounds have mixed slough and jack appearances. Small amt serous exudate noted. Surrounding dry hypopigmented skin plaques. Proximally and in close proximity skin is denuded. Small pustule with surrounding erythema noted L Hallux(L)0.5cm x (W)0.6cm. NO changes in skin temp periwound. An area of hyperpigmentation from previous wound noted to medial/posterior R Heel. L Heel is otherwise boggy with non-blanching erythema. Reabsorbed DTPI L Heel(L)2.2cm x (W)2cm. Dry brown eschar at base of wound. NO erythema or fluctuance periwound. Unstageable Pressure injury L lateral Malleolus(L)0.7cm x (W)0.9cm. Base of wound has 100% slough.edges dry and adherent to base of wound. No erythema,induration,or fluctuance periwound. Tx.Plan: Cleanse wounds R and L Buttocks with Saline. Apply Therahoney to wounds. Apply Moisture Barrier Paste Periwound. Cover with Optifoam drsg Daily and prn. Apply Betadine to wound R Hallux. Cover with Optifoam drsg every 3 days and prn. Apply Betadine to L lateral Malleolus. Cover with Optifoam drsg. Change every 3 days and prn. Apply Cavilon Skin Barrier to both heels. Cover each heel with Optifoam drsg. Change every 7 days and prn. Apply moisture barrier paste to R and L Buttocks. Cover with Optiform dressing Q3 days and prn. Apply Cavilon skin barrier both heels cover each with Optiform dressing change Q 7 days and prn. Apply Phytoplex antifungal lotion for itching three times/day Reposition at least every 2hours or as tolerated. Off-load heels with pillow. APM/ELIDIA Mattress overlay. DAILY ESTIMATED NEEDS: Needs based on Wound, critical care, wt loss, REPAIRER RECREATIONAL VEHICLE TF/ 52kg 25-35 kcals/kg 9003-7541 total kcals 1.25-2 g protein/kg 65-104 g total protein 25-30 mL/kg 3856-8738 total fluid mLs NUTRITION DIAGNOSIS: Increased kcal and pro needs r/t wound healing as evidenced by admitted w/ wounds @ BL buttocks, pending eval, suspected significant wt loss of 17lbs/10.5% in <3 months. CURRENT TF:Glucerna 1.5 @ 60ml/hr x 20 hrs ENTERAL NUTRITION RECOMMENDATIONS: Glucerna 1.5 @ 50ml/hr x 24 hrs to provide 1200ml, 1800 kcal, 99g pro, 911ml free H2O - Rec 24 hour continuous TF to prevent hypoglycemia - Rec goal rate of 50ml/hr x 24 hrs - Flush per MD. HOB over 30 degrees ADDITIONAL RECOMMENDATIONS: 1) Wound care: add GT BID, continue Vit C and ZnSO4 2) Per SNF: 61 inches (5'1") and wt= 145lbs (05/02/20) -> daily calibrated bedscale wt 3) Monitor BGs, need for NISS- h/o DM 4) Monitor lytes, replete as needed (4) Lymphadenopathy Assessment & Plan: Chest: Lungs diffusely demonstrate a mixture of mosaic attenuation and groundglass opacity with an upper lobe predominance, interspersed with areas of denser consolidation in a patchy distribution, the latter with a lower lobe predominance. There is also some interstitial septal thickening. There are bilateral pleural effusions. The heart is enlarged. There is a small pericardial effusion. There is bilateral hilar and mediastinal lymphadenopathy, with numerous enlarged mediastinal lymph nodes measuring up to 2 cm long axis dimension. There is also bilateral axillary adenopathy, with some infiltration of the axillary fat on the left. There is a tracheostomy. The thyroid is atrophic. The bones are unremarkable. When compared to the previous exam, there is considerably less pleural fluid. There is also less dense parenchymal consolidation. Background groundglass opacity is similar, however. The cardiomegaly and pericardial fluid were previously evident. The mediastinal lymphadenopathy is a new finding. The axillary nodes have also increased in size. There is much less edema of the subcutaneous fat Abdomen pelvis: There is a gastrostomy. Stomach and duodenum are otherwise unremarkable. The appendix is normal. No evidence of diverticulosis or diverticulitis. There is a small amount of free intraperitoneal fluid, pred ominantly in the pelvis. This is somewhat high in attenuation, measuring up to 21 Hounsfield units. No small bowel distention. No free intraperitoneal gas. There is a rectal tube in place. The lack of IV contrast limits assessment of the solid organs. The liver demonstrates a low-attenuation lesion in segment 6 which demonstrates nonspecific soft tissue attenuation, is ill-defined but measures approximately 2 cm in diameter. The liver is also enlarged. Patient is status post cholecystectomy. No biliary ductal dilatation. The pancreas is unremarkable. Spleen is mildly enlarged, measuring up to 13.5 cm long axis dimension. The adrenals and kidneys are unremarkable. There are prominent but not frankly enlarged retroperitoneal nodes. No pelvic mass or adenopathy. The uterus and adnexal structures are unremarkable. There is a Vann catheter in place. Small amount of air within the bladder presumably is related to the Vann catheterization. There is mild diffuse edema of the subcutaneous fat. The bones are unremarkable. IMPRESSION: Mediastinal and bilateral hilar lymphadenopathy. This is a new finding since previous study of 02/18/2020. This could indicate inflammatory lymphadenopathy, metastatic lymphadenopathy, or lymphoproliferative disorder. Splenomegaly. This is also probably new since the previous 02/18/2020 exam, although the spleen was incompletely included on that study Bilateral parenchymal opacities, as described. Most likely on the basis of pulmonary edema, although pneumonia also possible. This is less severe than on the previous study Low-attenuation right lobe liver lesion. This could represent primary neoplasm, metastatic neoplasm, benign hemangioma, among other possibilities. Consider further evaluation with multiphasic contrast enhanced CT Bilateral pleural effusions, much decreased since the previous exam Tracheostomy Diffuse edema of the subcutaneous fat, improved since 02/18/2020 Free intraperitoneal fluid. High attenuation of this indicates that it could be bloody Rectal tube Gastrostomy Vann catheter (5) Liver mass Assessment & Plan: noted on CT pending repeat CT with contrast - noted ? infection vs abscess? ?mets? Abnormal right kidney, with areas of low attenuation as described likely representing areas of nephritis. There is a complex lesion coming off the lower pole of the right kidney. This could represent a renal neoplasm, but findings are somewhat suspicious for a small abscess. Hepatic abnormality described previously is demonstrated to have mostly low attenuation with some rim enhancement. As this is contiguous with an area of apparent inflammatory change in the right kidney, this could represent a small liver abscess secondary to hepatic invasion of renal infection. This could also represent a complex cyst or an infected cyst. Given the contiguity to the right kidney, it is also possible but less likely that this represents an exophytic renal abscess indenting the liver. Abnormal low-attenuation areas in the left kidney likewise are suspicious for areas of multifocal nephritis. There is a complex low-attenuation lesion with rim enhancement and septation. This could represent a complicated cyst or could represent a small renal abscess. Cystic neoplasm also possible although less likely. Sonography may be useful to better characterize if clinically indicated. Bilateral basilar pulmonary parenchymal infiltrates, likely pneumonia or pulmonary edema secondary to congestive heart failure Trace left pleural effusion also noted Hepatomegaly Thyromegaly Ascites fluid Rectal tube and gastrostomy noted. Cardiomegaly Zia Chung May 23, 2020 13:58
[2020-05-23 16:00] VITALS: BP 121/72
--- NOTE | 2020-05-23 19:15 | NUR ---
NURSE NOTES: Received report from Tonia Salinas, Pt in bed, awake, no signs or symptoms of acute cardiac or respiratory distress noted. On vent -trach with prescribed setting. Appears to be saturating @ 99%. Able to make needs known via hand gesture and mouthing words. With G tube running Vital AF @70cc/hr- no residual noted. Vann catheter intact and draining to gravity with color yellow urine , with rectal tube patent, draining via gravity. IV line on R Hand #[id number], patent and flushed well, TKO. Pt has a scaly and dry skin, noted scratching. Aspiration precautions observed- HOB elevated, skin precautions observed. Safety measures in place, bed in lowest positioned and safety brakes engaged, call light within easy reach. Will continue plan of care.
--- NOTE | 2020-05-23 19:16 | NUR ---
NURSE HAND-OFF REPORT: Important Events on Shift Patient Status: stable Diet: Vital A.F @70ML/HR hold [id number] Pending Orders: Pending Results/Labs: Pending MD notification: Latest Vital Signs: Temperature 98.7 , Pulse 100 , B/P 121 /72 , Respiratory Rate 17 , O2 SAT 97 , Mechanical Ventilator, O2 Flow Rate . Vital Sign Comment: EKG Rhythm: Sinus Rhythm Rhythm change?: N MD Notified?: N - MD Response: Latest Hope Fall Score: 35 Fall Risk: Medium Risk Safety Measures: Call light Within Reach, Bed Alarm Zone 1, Side Rails Side Rails x2, Bed position Low and Locked. Fall Precautions: Yellow Socks Yellow Gown Door Sign Patient Fall Education Report given to MAGI Guajardo.
[2020-05-23 20:00] VITALS: BP 119/76
[2020-05-23] MEDS: Epoetin Alfa-EPBX (NON ESRD)10,000 unit/ml vial SUBQ SCH (21:53)
[2020-05-24] VITALS: BP 107/64
--- NOTE | 2020-05-24 | NUR ---
NURSE NOTES: Pt sleeping comfortably in bed. In no apparent cardiac and respiratory distress. Will continue to monitor
--- NOTE | 2020-05-24 | NUR ---
NURSE NOTES: Pt sleeping comfortably, in no apparent acute respiratory and cardiac distress noted. Turned and repositioned per protocol. Will continue plan of care.
--- NOTE | 2020-05-24 03:58 | NUR ---
NURSE NOTES: Sponge bath given, oral care provided. Wound dressings changed.Turned and reposition pt. Will continue to monitor
[2020-05-24 04:00] VITALS: BP 125/85
[2020-05-24] MEDS: dilTIAZem HCl 30mg tab GT SCH ×3 (05:45→21:27)
[2020-05-24] MEDS: Meropenem 1 GM in NS 55 ML IVPB SCH ×3 (05:45→21:27)
--- NOTE | 2020-05-24 07:16 | NUR ---
NURSE HAND-OFF REPORT: Important Events on Shift: None Patient Status: Diet: Vital AF @70 Pending Orders: Pending Results/Labs: Pending MD notification: Latest Vital Signs: Temperature 98.2 , Pulse 112 , B/P 125 /85 , Respiratory Rate 19 , O2 SAT 100 , Mechanical Ventilator, O2 Flow Rate . Vital Sign Comment: EKG Rhythm: Sinus Tachycardia Rhythm change?: N MD Notified?: N - MD Response: Latest Hope Fall Score: 35 Fall Risk: Medium Risk Safety Measures: Call light Within Reach, Bed Alarm Zone 1, Side Rails Side Rails x2, Bed position Low and Locked. Fall Precautions: Yellow Socks Yellow Gown Door Sign Patient Fall Education Report given to Ashwin RN.
--- NOTE | 2020-05-24 07:45 | NUR ---
NURSE HAND-OFF REPORT: Important Events on Shift:None Patient Status: Stable Diet: Vital AF @70 Pending Orders: Pending Results/Labs: Pending MD notification: Latest Vital Signs: Temperature 98.2 , Pulse 112 , B/P 125 /85 , Respiratory Rate 19 , O2 SAT 100 , Mechanical Ventilator, O2 Flow Rate . Vital Sign Comment: EKG Rhythm: Sinus Tachycardia Rhythm change?: N MD Notified?: N - MD Response: Latest Hope Fall Score: 35 Fall Risk: Medium Risk Safety Measures: Call light Within Reach, Bed Alarm Zone 1, Side Rails Side Rails x2, Bed position Low and Locked. Fall Precautions: Yellow Socks Yellow Gown Door Sign Patient Fall Education Report given to MAGI Aragon.
--- NOTE | 2020-05-24 07:47 | NUR ---
NURSE NOTES: Received report from Casandra/RN, Observed Patient in bed, awake, lying semi-ashford's, resting comfortably. On vent -trach with prescribed setting, no signs or symptoms of acute cardiac or respiratory distress noted. Able to make needs known via hand gesture and mouthing words. G-tube feeding running on hold. Vann catheter intact and draining to gravity with color yellow urine , with rectal tube patent, draining well via gravity. IV line on R Hand #24G, patent and flushed well, TKO. Aspiration precautions in place, observed- HOB elevated. Bed in lowest positioned and locked, safety brakes engaged, call light within easy reach, Encouraged to use call light when needed. Will continue plan of care.
[2020-05-24 08:00] VITALS: BP 109/67
[2020-05-24] MEDS: Metoprolol Tartrate 12.5mg TAB GT SCH ×2 (08:54→21:00)
[2020-05-24] MEDS: Zinc Sulfate 220mg GT SCH (08:54)
[2020-05-24] MEDS: Ascorbic Acid 500mg tab GT SCH (08:54)
[2020-05-24] MEDS: Multivitamins W/Minerals 15 ML UDC GT SCH (08:54)
--- NOTE | 2020-05-24 11:50 | Pulmonology Progress Note ---
Subjective ROS Limited/Unobtainable: Yes Constitutional: Denies: fever Allergies: Coded Allergies: No Known Allergies (Unverified , 02/09/20) Objective Last 24 Hour Vital Signs Date Time Temp Pulse Resp B/P (MAP) Pulse Ox O2 Delivery O2 Flow Rate FiO2 05/24/20 08:54 105 109/67 05/24/20 08:00 110 05/24/20 08:00 40 05/24/20 08:00 Mechanical Ventilator 05/24/20 08:00 99.0 105 18 109/67 (81) 98 05/24/20 07:02 108 18 50 05/24/20 05:45 112 125/85 05/24/20 04:00 40 05/24/20 04:00 Mechanical Ventilator 05/24/20 04:00 112 05/24/20 04:00 98.2 112 19 125/85 (98) 100 05/24/20 03:33 109 20 50 05/24/20 00:00 Mechanical Ventilator 05/24/20 00:00 114 05/24/20 00:00 97.3 111 20 107/64 (78) 100 05/23/20 22:53 102 16 50 05/23/20 22:00 109 101/64 05/23/20 20:59 96 119/76 05/23/20 20:00 40 05/23/20 20:00 97.0 96 16 119/76 (90) 100 05/23/20 20:00 95 05/23/20 20:00 Mechanical Ventilator 05/23/20 19:16 107 19 50 05/23/20 16:00 98.7 79 17 121/72 (88) 97 05/23/20 16:00 100 05/23/20 15:50 Mechanical Ventilator 05/23/20 15:49 40 05/23/20 15:24 114 115/68 05/23/20 15:02 94 16 50 05/23/20 12:00 40 05/23/20 12:00 97.4 114 18 115/68 (84) 99 05/23/20 12:00 99 05/23/20 12:00 Mechanical Ventilator Intake and Output 05/23/20 05/24/20 19:00 07:00 Intake Total 1080 ml 1140 ml Output Total 500 ml 800 ml Balance 580 ml 340 ml Intake Free Water 240 ml 400 ml IV Total 110 ml Tube Feeding 840 ml 630 ml Output Urine Total 500 ml 600 ml Stool Total 200 ml Current Medications Medications (Trade) Dose Ordered Sig/Lucy Route PRN Reason Start Time Stop Time Status Last Admin Dose Admin Acetaminophen (Tylenol) 650 mg Q4H PRN GT Mild Pain, Temp >100.5 05/16/20 17:45 06/15/20 17:44 05/23/20 08:30 Al Hydroxide/Mg Hydroxide (Mylanta) 30 ml Q4H PRN GT Abdominal cramps 05/16/20 17:45 06/15/20 17:44 Ascorbic Acid (Vitamin C) 500 mg DAILY GT 05/17/20 09:00 06/16/20 08:59 05/24/20 08:54 Clonidine HCl (Catapres Tab) 0.1 mg Q6H PRN GT SBP>160 or DBP>90 05/16/20 19:45 08/14/20 19:44 Diltiazem HCl (Cardizem Tab) 30 mg EVERY 8 HOURS GT 05/16/20 22:00 06/15/20 21:59 05/24/20 05:45 Diphenhydramine HCl (Benadryl) 25 mg Q6H PRN NG Itching 05/16/20 21:45 06/15/20 21:44 05/23/20 00:44 Epoetin Liam (Epoetin Liam-EPBX(NON ESRD)) 10,000 unit TUE-TUE-TUE SUBQ 05/16/20 21:00 08/14/20 20:59 05/23/20 21:53 Famotidine (Pepcid) 20 mg BID GT 05/17/20 09:00 08/15/20 08:59 05/24/20 08:54 Levothyroxine Sodium (Synthroid) 100 mcg DAILY@0630 GT 05/17/20 06:30 06/16/20 06:29 05/24/20 06:26 Meropenem 1 gm/ Sodium Chloride 55 ml @ 110 mls/hr Q8HR IVPB 05/22/20 13:00 05/27/20 12:59 05/24/20 05:45 Metoprolol Tartrate (Lopressor) 12.5 mg Q12HR GT 05/16/20 21:00 08/14/20 20:59 05/24/20 08:54 Multivitamins (Multivitamins W/ Minerals 15ml Liquid) 15 ml DAILY GT 05/17/20 09:00 06/16/20 08:59 05/24/20 08:54 Zinc Sulfate (Zinc Sulfate) 220 mg DAILY GT 05/17/20 09:00 08/15/20 08:59 05/24/20 08:54 Assessment/Plan Assessment/Plan Pulmonary Progress Note Subjective ROS Limited/Unobtainable: Yes Constitutional: Denies: fever Allergies: Coded Allergies: No Known Allergies (Unverified , 02/09/20) Subjective care noted anemic elevated CRP ++ lymphadenopathy Oncology following enlarged spleen and liver lesion Focal nephritis-possible infection- ID following Objective Vital Signs noted Objective WDWN NAD trach reduced breath sounds bilaterally without rhonchi or wheeze [id number] without MRG NABS nontender Gt no CCE nonfocal Laboratory Tests noted Medications noted Assessment/Plan Assessment/Plan Anemia, status post blood transfusion history of UTI Chronic respiratory failure , ventilator dependent with tracheostomy status Dysphagia, feeding by G-tube History of sepsis Decubitus skin ulcer present on admission Chronic dermatitis Hypotension pericardial effusion small elevated CRP pulmonary hypertension ++lymphadenopathy splenomegaly liver lesion Breast cancer PLAN ID noted heme/onc eval noted and discussed nutrition care reviewed vent support CT body reviewed reviewed echo update family once further evaluate by oncology impression, plan, and exam edited and reviewed in detail care discussed with Luis Felipe Andrea MD May 24, 2020 11:50
[2020-05-24 12:00] VITALS: BP 103/63
--- NOTE | 2020-05-24 13:20 | NUR ---
NURSE NOTES: Patient awake in bed , watching TV. No respiratory distress/SOB noted. will continue to monitor.
[2020-05-24] MEDS: Acetaminophen 650mg/20.3ml GT PRN (13:30)
[2020-05-24] MEDS ORDERED: Tubing IV Secondary IV ONE (13:33)
--- NOTE | 2020-05-24 14:41 | Surgery Progress Note ---
Surgery Progress Note Subjective Additional Comments no acute events comfortable stable Objective Last 24 Hour Vital Signs Date Time Temp Pulse Resp B/P (MAP) Pulse Ox O2 Delivery O2 Flow Rate FiO2 05/24/20 14:00 99.8 05/24/20 13:30 93 103/63 05/24/20 12:00 104 05/24/20 12:00 Mechanical Ventilator 05/24/20 12:00 40 05/24/20 12:00 100.4 93 20 103/63 (76) 98 05/24/20 11:02 105 20 50 05/24/20 08:54 105 109/67 05/24/20 08:00 110 05/24/20 08:00 40 05/24/20 08:00 Mechanical Ventilator 05/24/20 08:00 99.0 105 18 109/67 (81) 98 05/24/20 07:02 108 18 50 05/24/20 05:45 112 125/85 05/24/20 04:00 40 05/24/20 04:00 Mechanical Ventilator 05/24/20 04:00 112 05/24/20 04:00 98.2 112 19 125/85 (98) 100 05/24/20 03:33 109 20 50 05/24/20 00:00 Mechanical Ventilator 05/24/20 00:00 114 05/24/20 00:00 97.3 111 20 107/64 (78) 100 05/23/20 22:53 102 16 50 05/23/20 22:00 109 101/64 05/23/20 20:59 96 119/76 05/23/20 20:00 40 05/23/20 20:00 97.0 96 16 119/76 (90) 100 05/23/20 20:00 95 05/23/20 20:00 Mechanical Ventilator 05/23/20 19:16 107 19 50 05/23/20 16:00 98.7 79 17 121/72 (88) 97 05/23/20 16:00 100 05/23/20 15:50 Mechanical Ventilator 05/23/20 15:49 40 05/23/20 15:24 114 115/68 05/23/20 15:02 94 16 50 I&O Intake and Output 05/23/20 05/24/20 19:00 07:00 Intake Total 1080 ml 1140 ml Output Total 500 ml 800 ml Balance 580 ml 340 ml Intake Free Water 240 ml 400 ml IV Total 110 ml Tube Feeding 840 ml 630 ml Output Urine Total 500 ml 600 ml Stool Total 200 ml Dressing: dry Cardiovascular: RSR Respiratory: decreased breath sounds Abdomen: non-tender, present bowel sounds Extremities: no edema, no tenderness, no cyanosis, pulses, other Plan Problems: (1) Pneumonia (2) Symptomatic anemia (3) Decubitus skin ulcer Assessment & Plan: Pt presented on admission with Pressure Injuries, Tracheostomy,Alopecia, Generalized Hypopigmented Skin plaques. Few plaques noted to be open lesions but are pink and dry. Skin assessed under collar of trach and no areas of skin breakdown noted. Full thickness Pressure injury noted to R Buttocks(L)5.7cm x (W)1.7cm x (D)0.3cm. Base of wound is 90% beefy-red,10% slough. Borders are macerated . surrounding dry skin with hypopigmented plaques. Full thickness Pressure injury L Buttocks(L)4.6cm x (W)4.5cm. Base of wound has clusters wounds with intertwining bridges. Wounds have mixed slough and jack appearances. Small amt serous exudate noted. Surrounding dry hypopigmented skin plaques. Proximally and in close proximity skin is denuded. Small pustule with surrounding erythema noted L Hallux(L)0.5cm x (W)0.6cm. NO changes in skin temp periwound. An area of hyperpigmentation from previous wound noted to medial/posterior R Heel. L Heel is otherwise boggy with non-blanching erythema. Reabsorbed DTPI L Heel(L)2.2cm x (W)2cm. Dry brown eschar at base of wound. NO erythema or fluctuance periwound. Unstageable Pressure injury L lateral Malleolus(L)0.7cm x (W)0.9cm. Base of wound has 100% slough.edges dry and adherent to base of wound. No erythema,induration,or fluctuance periwound. Tx.Plan: Cleanse wounds R and L Buttocks with Saline. Apply Therahoney to wounds. Apply Moisture Barrier Paste Periwound. Cover with Optifoam drsg Daily and prn. Apply Betadine to wound R Hallux. Cover with Optifoam drsg every 3 days and prn. Apply Betadine to L lateral Malleolus. Cover with Optifoam drsg. Change every 3 days and prn. Apply Cavilon Skin Barrier to both heels. Cover each heel with Optifoam drsg. Change every 7 days and prn. Apply moisture barrier paste to R and L Buttocks. Cover with Optiform dressing Q3 days and prn. Apply Cavilon skin barrier both heels cover each with Optiform dressing change Q 7 days and prn. Apply Phytoplex antifungal lotion for itching three times/day Reposition at least every 2hours or as tolerated. Off-load heels with pillow. APM/ELIDIA Mattress overlay. DAILY ESTIMATED NEEDS: Needs based on Wound, critical care, wt loss, [employer] TF/ 52kg 25-35 kcals/kg 4527-4635 total kcals 1.25-2 g protein/kg 65-104 g total protein 25-30 mL/kg 7727-0509 total fluid mLs NUTRITION DIAGNOSIS: Increased kcal and pro needs r/t wound healing as evidenced by admitted w/ wounds @ BL buttocks, pending eval, suspected significant wt loss of 17lbs/10.5% in <3 months. CURRENT TF:Glucerna 1.5 @ 60ml/hr x 20 hrs ENTERAL NUTRITION RECOMMENDATIONS: Glucerna 1.5 @ 50ml/hr x 24 hrs to provide 1200ml, 1800 kcal, 99g pro, 911ml free H2O - Rec 24 hour continuous TF to prevent hypoglycemia - Rec goal rate of 50ml/hr x 24 hrs - Flush per MD. HOB over 30 degrees ADDITIONAL RECOMMENDATIONS: 1) Wound care: add GT BID, continue Vit C and ZnSO4 2) Per SNF: 61 inches (5'1") and wt= 145lbs (05/02/20) -> daily calibrated bedscale wt 3) Monitor BGs, need for NISS- h/o DM 4) Monitor lytes, replete as needed (4) Lymphadenopathy Assessment & Plan: Chest: Lungs diffusely demonstrate a mixture of mosaic attenuation and groundglass opacity with an upper lobe predominance, interspersed with areas of denser consolidation in a patchy distribution, the latter with a lower lobe predominance. There is also some interstitial septal thickening. There are bilateral pleural effusions. The heart is enlarged. There is a small pericardial effusion. There is bilateral hilar and mediastinal lymphadenopathy, with numerous enlarged mediastinal lymph nodes measuring up to 2 cm long axis dimension. There is also bilateral axillary adenopathy, with some infiltration of the axillary fat on the left. There is a tracheostomy. The thyroid is atrophic. The bones are unremarkable. When compared to the previous exam, there is considerably less pleural fluid. There is also less dense parenchymal consolidation. Background groundglass opacity is similar, however. The cardiomegaly and pericardial fluid were previously evident. The mediastinal lymphadenopathy is a new finding. The axillary nodes have also increased in size. There is much less edema of the subcutaneous fat Abdomen pelvis: There is a gastrostomy. Stomach and duodenum are otherwise unremarkable. The appendix is normal. No evidence of diverticulosis or diverticulitis. There is a small amount of free intraperitoneal fluid, predominantly in the pelvis. This is somewhat high in attenuation, measuring up to 21 Houns field units. No small bowel distention. No free intraperitoneal gas. There is a rectal tube in place. The lack of IV contrast limits assessment of the solid organs. The liver demonstrates a low-attenuation lesion in segment 6 which demonstrates nonspecific soft tissue attenuation, is ill-defined but measures approximately 2 cm in diameter. The liver is also enlarged. Patient is status post cholecystectomy. No biliary ductal dilatation. The pancreas is unremarkable. Spleen is mildly enlarged, measuring up to 13.5 cm long axis dimension. The adrenals and kidneys are unremarkable. There are prominent but not frankly enlarged retroperitoneal nodes. No pelvic mass or adenopathy. The uterus and adnexal structures are unremarkable. There is a Vann catheter in place. Small amount of air within the bladder presumably is related to the Vann catheterization. There is mild diffuse edema of the subcutaneous fat. The bones are unremarkable. IMPRESSION: Mediastinal and bilateral hilar lymphadenopathy. This is a new finding since previous study of 02/18/2020. This could indicate inflammatory lymphadenopathy, metastatic lymphadenopathy, or lymphoproliferative disorder. Splenomegaly. This is also probably new since the previous 02/18/2020 exam, although the spleen was incompletely included on that study Bilateral parenchymal opacities, as described. Most likely on the basis of pulmonary edema, although pneumonia also possible. This is less severe than on the previous study Low-attenuation right lobe liver lesion. This could represent primary neoplasm, metastatic neoplasm, benign hemangioma, among other possibilities. Consider further evaluation with multiphasic contrast enhanced CT Bilateral pleural effusions, much decreased since the previous exam Tracheostomy Diffuse edema of the subcutaneous fat, improved since 02/18/2020 Free intraperitoneal fluid. High attenuation of this indicates that it could be bloody Rectal tube Gastrostomy Vann catheter (5) Liver mass Assessment & Plan: noted on CT pending repeat CT with contrast - noted ? infection vs abscess? ?mets? Abnormal right kidney, with areas of low attenuation as described likely representing areas of nephritis. There is a complex lesion coming off the lower pole of the right kidney. This could represent a renal neoplasm, but findings are somewhat suspicious for a small abscess. Hepatic abnormality described previously is demonstrated to have mostly low attenuation with some rim enhancement. As this is contiguous with an area of apparent inflammatory change in the right kidney, this could represent a small liver abscess secondary to hepatic invasion of renal infection. This could also represent a complex cyst or an infected cyst. Given the contiguity to the right kidney, it is also possible but less likely that this represents an exophytic renal abscess inden ting the liver. Abnormal low-attenuation areas in the left kidney likewise are suspicious for areas of multifocal nephritis. There is a complex low-attenuation lesion with rim enhancement and septation. This could represent a complicated cyst or could re present a small renal abscess. Cystic neoplasm also possible although less likely. Sonography may be useful to better characterize if clinically indicated. Bilateral basilar pulmonary parenchymal infiltrates, likely pneumonia or pulmonary edema secondary to congestive heart failure Trace left pleural effusion also noted Hepatomegaly Thyromegaly Ascites fluid Rectal tube and gastrostomy noted. Cardiomegaly Zia Chung May 24, 2020 14:41
[2020-05-24 16:00] VITALS: BP 110/66
--- NOTE | 2020-05-24 16:35 | Infectious Diseases Prog Note ---
Assessment/Plan Assessment/Plan A 1. Pseudomonas, proteus & Acinetobacter pneumonia COVID19 negative 2. breast cancer 3. Ventilator dependent respiratory failure s/p tracheostomy 4. 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 ? liver abscess P 1. change Meropenem X 4 days 2. will follow up cultures Subjective ROS Limited/Unobtainable: Yes Constitutional: Reports: fever, other - Pe=590.4 Allergies: Coded Allergies: No Known Allergies (Unverified , 02/09/20) Objective Last 24 Hour Vital Signs Date Time Temp Pulse Resp B/P (MAP) Pulse Ox O2 Delivery O2 Flow Rate FiO2 05/24/20 16:00 98.2 98 20 110/66 (81) 100 05/24/20 16:00 96 05/24/20 16:00 Mechanical Ventilator 05/24/20 16:00 40 05/24/20 15:07 100 20 50 05/24/20 14:00 99.8 05/24/20 13:30 93 103/63 05/24/20 12:00 104 05/24/20 12:00 Mechanical Ventilator 05/24/20 12:00 40 05/24/20 12:00 100.4 93 20 103/63 (76) 98 05/24/20 11:02 105 20 50 05/24/20 08:54 105 109/67 05/24/20 08:00 110 05/24/20 08:00 40 05/24/20 08:00 Mechanical Ventilator 05/24/20 08:00 99.0 105 18 109/67 (81) 98 05/24/20 07:02 108 18 50 05/24/20 05:45 112 125/85 05/24/20 04:00 40 05/24/20 04:00 Mechanical Ventilator 05/24/20 04:00 112 05/24/20 04:00 98.2 112 19 125/85 (98) 100 05/24/20 03:33 109 20 50 05/24/20 00:00 Mechanical Ventilator 05/24/20 00:00 114 05/24/20 00:00 97.3 111 20 107/64 (78) 100 05/23/20 22:53 102 16 50 05/23/20 22:00 109 101/64 05/23/20 20:59 96 119/76 05/23/20 20:00 40 05/23/20 20:00 97.0 96 16 119/76 (90) 100 05/23/20 20:00 95 05/23/20 20:00 Mechanical Ventilator 05/23/20 19:16 107 19 50 Height (Feet): 5 Height (Inches): 2.00 Weight (Pounds): 125 HEENT: mucous membranes moist, status post trach Respiratory/Chest: lungs clear, other - on ventilator Cardiovascular: normal rate Abdomen: soft, non tender, other - GT feeding Extremities: no edema Skin: rash, other - chronic skin lesios wth areas of depigmentation Neurologic/Psychiatric: alert, responsive Current Medications Medications (Trade) Dose Ordered Sig/Lucy Route PRN Reason Start Time Stop Time Status Last Admin Dose Admin Acetaminophen (Tylenol) 650 mg Q4H PRN GT Mild Pain, Temp >100.5 05/16/20 17:45 06/15/20 17:44 05/24/20 13:30 Al Hydroxide/Mg Hydroxide (Mylanta) 30 ml Q4H PRN GT Abdominal cramps 05/16/20 17:45 06/15/20 17:44 Ascorbic Acid (Vitamin C) 500 mg DAILY GT 05/17/20 09:00 06/16/20 08:59 05/24/20 08:54 Clonidine HCl (Catapres Tab) 0.1 mg Q6H PRN GT SBP>160 or DBP>90 05/16/20 19:45 08/14/20 19:44 Diltiazem HCl (Cardizem Tab) 30 mg EVERY 8 HOURS GT 05/16/20 22:00 06/15/20 21:59 05/24/20 13:30 Diphenhydramine HCl (Benadryl) 25 mg Q6H PRN NG Itching 05/16/20 21:45 06/15/20 21:44 05/23/20 00:44 Epoetin Liam (Epoetin Liam-EPBX(NON ESRD)) 10,000 unit TUE-TUE-TUE SUBQ 05/16/20 21:00 08/14/20 20:59 05/23/20 21:53 Famotidine (Pepcid) 20 mg BID GT 05/17/20 09:00 08/15/20 08:59 05/24/20 08:54 Levothyroxine Sodium (Synthroid) 100 mcg DAILY@0630 GT 05/17/20 06:30 06/16/20 06:29 05/24/20 06:26 Meropenem 1 gm/ Sodium Chloride 55 ml @ 110 mls/hr Q8HR IVPB 05/22/20 13:00 05/27/20 12:59 05/24/20 13:30 Metoprolol Tartrate (Lopressor) 12.5 mg Q12HR GT 05/16/20 21:00 08/14/20 20:59 05/24/20 08:54 Multivitamins (Multivitamins W/ Minerals 15ml Liquid) 15 ml DAILY GT 05/17/20 09:00 06/16/20 08:59 05/24/20 08:54 Zinc Sulfate (Zinc Sulfate) 220 mg DAILY GT 05/17/20 09:00 08/15/20 08:59 05/24/20 08:54 Arnoldo West MD May 24, 2020 16:35
--- NOTE | 2020-05-24 19:20 | NUR ---
NURSE HAND-OFF REPORT: Important Events on Shift: SVT of 201, Dr. Sorto aware Patient Status: Stable Diet: Tube feeding Pending Orders: N/A Pending Results/Labs: refused lab this morning Pending MD notification:N/A Latest Vital Signs: Temperature 98.2 , Pulse 89 , B/P 110 /66 , Respiratory Rate 18 , O2 SAT 100 , Mechanical Ventilator, O2 Flow Rate . Vital Sign Comment: stable EKG Rhythm: Sinus Rhythm Rhythm change?: N MD Notified?: Y -Dr. Noreen GOULD Response: Latest Hope Fall Score: 35 Fall Risk: Medium Risk Safety Measures: Call light Within Reach, Bed Alarm Zone 1, Side Rails Side Rails x2, Bed position Low and Locked. Fall Precautions: Yellow Socks Yellow Gown Door Sign Patient Fall Education Report given to Erasmo Iraheta/MAGI.
--- NOTE | 2020-05-24 19:25 | NUR ---
NURSE NOTES: Patient received from MAGI Aragon under the care of Dr. Medina for the admitting dx. of anemia and PNA. Patient NKA and full code status. On contact isolation. Fall, isolation, and aspiration precaution observed and maintained at all times. Patient is alert and oriented x3, responsive with gestures and mouthing words. Patient tolerating vent settings well. No apparent distress or discomfort noted. Denies pain at this time. Will continue to monitor.
[2020-05-24 20:00] VITALS: BP 111/74
--- NOTE | 2020-05-24 21:30 | NUR ---
NURSE NOTES: Patient noted awake scratching herself, PRN benadryl for itching offered but refused. House lotion provided to relieve itching. Patient in calm disposition. Tolerating Vent settings well. No acute distress noted at this time. Will continue to monitor.
--- NOTE | 2020-05-24 22:00 | General Progress Note ---
Subjective Allergies: Coded Allergies: No Known Allergies (Unverified , 02/09/20) Subjective Above noted no events tolerating feeds stools liquid - via rectal tube Objective Last 24 Hour Vital Signs Date Time Temp Pulse Resp B/P (MAP) Pulse Ox O2 Delivery O2 Flow Rate FiO2 05/24/20 21:27 89 110/66 05/24/20 21:00 89 110/66 05/24/20 19:13 89 18 50 05/24/20 16:00 98.2 98 20 110/66 (81) 100 05/24/20 16:00 96 05/24/20 16:00 Mechanical Ventilator 05/24/20 16:00 40 05/24/20 15:07 100 20 50 05/24/20 14:00 99.8 05/24/20 13:30 93 103/63 05/24/20 13:03 201 05/24/20 12:00 104 05/24/20 12:00 Mechanical Ventilator 05/24/20 12:00 40 05/24/20 12:00 100.4 93 20 103/63 (76) 98 05/24/20 11:02 105 20 50 05/24/20 08:54 105 109/67 05/24/20 08:00 110 05/24/20 08:00 40 05/24/20 08:00 Mechanical Ventilator 05/24/20 08:00 99.0 105 18 109/67 (81) 98 05/24/20 07:02 108 18 50 05/24/20 05:45 112 125/85 05/24/20 04:00 40 05/24/20 04:00 Mechanical Ventilator 05/24/20 04:00 112 05/24/20 04:00 98.2 112 19 125/85 (98) 100 05/24/20 03:33 109 20 50 05/24/20 00:00 Mechanical Ventilator 05/24/20 00:00 114 05/24/20 00:00 97.3 111 20 107/64 (78) 100 05/23/20 22:53 102 16 50 05/23/20 22:00 109 101/64 Intake and Output 05/23/20 05/24/20 19:00 07:00 Intake Total 1080 ml 1140 ml Output Total 500 ml 800 ml Balance 580 ml 340 ml Intake Free Water 240 ml 400 ml IV Total 110 ml Tube Feeding 840 ml 630 ml Output Urine Total 500 ml 600 ml Stool Total 200 ml Height (Feet): 5 Height (Inches): 2.00 Weight (Pounds): 125 Objective Thin woman in JAMES no distress (+) diffuse skin disease NCAT neck supple , (+) Trach CTA RR abd soft NT ND, GT no edema Assessment/Plan Assessment/Plan: Assessment - Anemia, but with brown OB (+) stools - Diarrhea - C Diff (-) , ? tube feed related - H&H stable - Fever, PNA - Respiratory failure - Dysphagia / GT - h/o BRCA - skin disorder - lymphadenopathy on CT - liver / renal lesions on CT - infectious vs malignant Recommendations - transfuse PRN - Vital AF trial - follow stool output - conservative f/u per discussion with son - PPI - monitor labs - abx per ID - Onc f/u - repeat CT imaging later next week Priti Sequeira MD May 24, 2020 22:00
[2020-05-24] MEDS ORDERED: NS 275ml ONE (22:18)
[2020-05-25] VITALS: BP 117/73
[2020-05-25] MEDS: Acetaminophen 650mg/20.3ml GT PRN ×2 (03:24→22:07)
[2020-05-25] MEDS: DiphenhydrAMINE 25mg/10ml Elixir NG PRN ×2 (03:25→22:07)
[2020-05-25 04:00] VITALS: BP 127/80
[2020-05-25] MEDS: dilTIAZem HCl 30mg tab GT SCH ×3 (05:52→21:25)
[2020-05-25] MEDS: Meropenem 1 GM in NS 55 ML IVPB SCH ×3 (05:53→21:26)
--- NOTE | 2020-05-25 07:50 | NUR ---
NURSE HAND-OFF REPORT: Important Events on Shift:IV change Patient Status: Stable Diet: GT Pending Orders: Pending Results/Labs: Pending MD notification: Latest Vital Signs: Temperature 99.0 , Pulse 101 , B/P 127 /80 , Respiratory Rate 18 , O2 SAT 100 , Mechanical Ventilator, O2 Flow Rate . Vital Sign Comment: EKG Rhythm: Sinus Tachycardia Rhythm change?: N MD Notified?: Juan Sorto MD Response: Latest Hope Fall Score: 35 Fall Risk: Medium Risk Safety Measures: Call light Within Reach, Bed Alarm Zone 1, Side Rails Side Rails x2, Bed position Low and Locked. Fall Precautions: Yellow Socks Yellow Gown Door Sign Patient Fall Education Report given to MAGI Damon.
--- NOTE | 2020-05-25 07:50 | NUR ---
NURSE NOTES: Received report from MAGI Cortez. Pt is lying in bed, awake, A/O x2-3, not in distress. Vital signs are stable, ST on the satellite project site monitor. Tolerating vent setting of AC 14, TV500, FiO2 40%, PEEP 5 saturating 100%. Gtube is intact and patent. Peripheral line in L forearm 22 G is intact and patent. Vann catheter is intact and patent draining light brooke colored urine. Rectal tube is intact and patent. Bed is locked and in lowest position, bed alarm on, call light is with the pt., head of bed is elevated at all times. Will continue to monitor pt. Will continue with the plan of care.
[2020-05-25 08:00] VITALS: BP 119/69
[2020-05-25] MEDS: Metoprolol Tartrate 12.5mg TAB GT SCH ×2 (09:00→21:00)
[2020-05-25] MEDS: Zinc Sulfate 220mg GT SCH (09:01)
[2020-05-25] MEDS: Multivitamins W/Minerals 15 ML UDC GT SCH (09:01)
[2020-05-25] MEDS: Ascorbic Acid 500mg tab GT SCH (09:01)
--- NOTE | 2020-05-25 09:41 | Hematology/Onc Progress Note ---
Assessment/Plan Assessment/Plan Assessment and Recs # Breast cancer, stage IV, on chemotherapy as outpatient --> obtain further records, order placed-->last chemo was march 2019, s/p 5 cycles --> katie explain lymphadenopathy as seen on ct --> Ct repeated with contrast shows no significant lad # Pancytopenia is due to recent chemo and infection --> imaging has been reviewed, does have splenomegaly --> hep and hiv are neg --> imaging abd reviewed --> hgb 9.7 --> sp transfusion prbc # Pneumonia with b/l infiltrates --> s/p abx --> per ID # Resp failure s/p trach/vent # Splenomegaly. 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 Appreciate consultation and jelly Randall/Md Subjective Allergies: Coded Allergies: No Known Allergies (Unverified , 02/09/20) Subjective 05/22 on bipap, desaturates overnight, no bleeding, smear reviewed 05/23 is awake, with itching, meds noted, no bleeding, jelly randall 05/25 labs are reviewed, meds noted, no major changes, hgb 9.7 Objective Objective Current Medications Medications (Trade) Dose Ordered Sig/Lucy Route PRN Reason Start Time Stop Time Status Last Admin Dose Admin Acetaminophen (Tylenol) 650 mg Q4H PRN GT Mild Pain, Temp >100.5 05/16/20 17:45 06/15/20 17:44 05/25/20 03:24 Al Hydroxide/Mg Hydroxide (Mylanta) 30 ml Q4H PRN GT Abdominal cramps 05/16/20 17:45 06/15/20 17:44 Ascorbic Acid (Vitamin C) 500 mg DAILY GT 05/17/20 09:00 06/16/20 08:59 05/25/20 09:01 Clonidine HCl (Catapres Tab) 0.1 mg Q6H PRN GT SBP>160 or DBP>90 05/16/20 19:45 08/14/20 19:44 Diltiazem HCl (Cardizem Tab) 30 mg EVERY 8 HOURS GT 05/16/20 22:00 06/15/20 21:59 05/25/20 05:52 Diphenhydramine HCl (Benadryl) 25 mg Q6H PRN NG Itching 05/16/20 21:45 06/15/20 21:44 05/25/20 03:25 Epoetin Liam (Epoetin Liam-EPBX(NON ESRD)) 10,000 unit TUE-TUE-TUE SUBQ 05/16/20 21:00 08/14/20 20:59 05/23/20 21:53 Famotidine (Pepcid) 20 mg BID GT 05/17/20 09:00 08/15/20 08:59 05/25/20 09:01 Levothyroxine Sodium (Synthroid) 100 mcg DAILY@0630 GT 05/17/20 06:30 06/16/20 06:29 05/25/20 05:52 Meropenem 1 gm/ Sodium Chloride 55 ml @ 110 mls/hr Q8HR IVPB 05/22/20 13:00 05/27/20 12:59 05/25/20 05:53 Metoprolol Tartrate (Lopressor) 12.5 mg Q12HR GT 05/16/20 21:00 08/14/20 20:59 05/25/20 09:00 Multivitamins (Multivitamins W/ Minerals 15ml Liquid) 15 ml DAILY GT 05/17/20 09:00 06/16/20 08:59 05/25/20 09:01 Zinc Sulfate (Zinc Sulfate) 220 mg DAILY GT 05/17/20 09:00 08/15/20 08:59 05/25/20 09:01 Last 24 Hour Vital Signs Date Time Temp Pulse Resp B/P (MAP) Pulse Ox O2 Delivery O2 Flow Rate FiO2 05/25/20 09:00 109 119/69 05/25/20 07:07 107 18 50 05/25/20 05:52 101 127/80 05/25/20 04:00 99.0 101 18 127/80 (96) 100 05/25/20 04:00 Mechanical Ventilator 05/25/20 04:00 40 05/25/20 04:00 101 05/25/20 03:27 102 17 50 05/25/20 00:00 98.8 100 16 117/73 (88) 100 05/25/20 00:00 109 05/25/20 00:00 Mechanical Ventilator 05/25/20 00:00 40 05/24/20 22:37 108 19 50 11/28/20 21:27 89 110/66 05/24/20 21:00 89 110/66 05/24/20 20:00 Mechanical Ventilator 05/24/20 20:00 98.8 103 21 111/74 (86) 100 05/24/20 20:00 106 05/24/20 20:00 40 05/24/20 19:13 89 18 50 05/24/20 16:00 98.2 98 20 110/66 (81) 100 05/24/20 16:00 96 05/24/20 16:00 Mechanical Ventilator 05/24/20 16:00 40 05/24/20 15:07 100 20 50 05/24/20 14:00 99.8 05/24/20 13:30 93 103/63 05/24/20 13:03 201 05/24/20 12:00 104 05/24/20 12:00 Mechanical Ventilator 05/24/20 12:00 40 05/24/20 12:00 100.4 93 20 103/63 (76) 98 05/24/20 11:02 105 20 50 05/24/20 08:54 105 109/67 05/24/20 08:00 110 05/24/20 08:00 40 05/24/20 08:00 Mechanical Ventilator 05/24/20 08:00 99.0 105 18 109/67 (81) 98 05/24/20 07:02 108 18 50 05/24/20 05:45 112 125/85 05/24/20 04:00 40 05/24/20 04:00 Mechanical Ventilator 05/24/20 04:00 112 05/24/20 04:00 98.2 112 19 125/85 (98) 100 05/24/20 03:33 109 20 50 05/24/20 00:00 Mechanical Ventilator 05/24/20 00:00 114 05/24/20 00:00 97.3 111 20 107/64 (78) 100 05/23/20 22:53 102 16 50 05/23/20 22:00 109 101/64 05/23/20 20:59 96 119/76 05/23/20 20:00 40 05/23/20 20:00 97.0 96 16 119/76 (90) 100 05/23/20 20:00 95 05/23/20 20:00 Mechanical Ventilator 05/23/20 19:16 107 19 50 05/23/20 16:00 98.7 79 17 121/72 (88) 97 05/23/20 16:00 100 05/23/20 15:50 Mechanical Ventilator 05/23/20 15:49 40 05/23/20 15:24 114 115/68 05/23/20 15:02 94 16 50 05/23/20 12:00 40 05/23/20 12:00 97.4 114 18 115/68 (84) 99 05/23/20 12:00 99 05/23/20 12:00 Mechanical Ventilator 05/23/20 11:06 100 17 50 Intake and Output 05/24/20 05/25/20 19:00 07:00 Intake Total 1240 ml 1090 ml Output Total 600 ml 750 ml Balance 640 ml 340 ml Intake Free Water 400 ml 250 ml Tube Feeding 840 ml 840 ml Output Urine Total 450 ml 650 ml Stool Total 150 ml 100 ml Labs Test 05/22/20 10:30 05/23/20 04:24 White Blood Count 6.3 K/UL (4.8-10.8) Red Blood Count 3.48 M/UL (4.20-5.40) Hemoglobin 9.7 G/DL (12.0-16.0) Hematocrit 30.1 % (37.0-47.0) Mean Corpuscular Volume 87 FL (80-99) Mean Corpuscular Hemoglobin 27.8 PG (27.0-31.0) Mean Corpuscular Hemoglobin Concent 32.1 G/DL (32.0-36.0) Red Cell Distribution Width 18.7 % (11.6-14.8) Platelet Count 179 K/UL (150-450) Mean Platelet Volume 7.1 FL (6.5-10.1) Neutrophils (%) (Auto) 75.2 % (45.0-75.0) Lymphocytes (%) (Auto) 11.4 % (20.0-45.0) Monocytes (%) (Auto) 4.0 % (1.0-10.0) Eosinophils (%) (Auto) 8.2 % (0.0-3.0) Basophils (%) (Auto) 1.3 % (0.0-2.0) Height (Feet): 5 Height (Inches): 2.00 Weight (Pounds): 125 Objective PE General: Awake and alert, nad HEENT: NC/AT. EOMI. Neck: Tracheostomy in place. Cardiovascular: Tachycardic. S1 and S2 normal. Resp: Vent dependent through tracheostomy. Abdomen: Abdomen is soft, nondistended. G-tube in place Skin: Diffuse hypopigmentation over the skin. Patient is itchy MSK: Normal tone and bulk. Moving all extremities. Neuro: Awake and alert. Mentating appropriately. Toby Mauricio MD May 25, 2020 09:41
--- NOTE | 2020-05-25 10:30 | NUR ---
NURSE NOTES: Initial assessment done. Morning medications given. Gtube with no residue. Pt tolerated well. Vital signs remain stable. Tolerating vent setting. Will continue to monitor pt.
[2020-05-25 12:00] VITALS: BP 106/80
--- NOTE | 2020-05-25 13:25 | General Progress Note ---
Subjective Allergies: Coded Allergies: No Known Allergies (Unverified , 02/09/20) Subjective Above noted no events tolerating feeds stools liquid - via rectal tube Objective Last 24 Hour Vital Signs Date Time Temp Pulse Resp B/P (MAP) Pulse Ox O2 Delivery O2 Flow Rate FiO2 05/25/20 12:00 40 05/25/20 12:00 Mechanical Ventilator 05/25/20 12:00 109 05/25/20 12:00 98.1 69 29 106/80 (89) 100 05/25/20 11:03 68 19 50 05/25/20 09:00 109 119/69 05/25/20 08:00 Mechanical Ventilator 05/25/20 08:00 116 05/25/20 08:00 40 05/25/20 08:00 98.9 109 20 119/69 (86) 100 05/25/20 07:07 107 18 50 05/25/20 05:52 101 127/80 05/25/20 04:00 99.0 101 18 127/80 (96) 100 05/25/20 04:00 Mechanical Ventilator 05/25/20 04:00 40 05/25/20 04:00 101 05/25/20 03:27 102 17 50 05/25/20 00:00 98.8 100 16 117/73 (88) 100 05/25/20 00:00 109 05/25/20 00:00 Mechanical Ventilator 05/25/20 00:00 40 05/24/20 22:37 108 19 50 05/24/20 21:27 89 110/66 05/24/20 21:00 89 110/66 05/24/20 20:00 Mechanical Ventilator 05/24/20 20:00 98.8 103 21 111/74 (86) 100 05/24/20 20:00 106 05/24/20 20:00 40 05/24/20 19:13 89 18 50 05/24/20 16:00 98.2 98 20 110/66 (81) 100 05/24/20 16:00 96 05/24/20 16:00 Mechanical Ventilator 05/24/20 16:00 40 05/24/20 15:07 100 20 50 05/24/20 14:00 99.8 05/24/20 13:30 93 103/63 Intake and Output 05/24/20 05/25/20 19:00 07:00 Intake Total 1240 ml 1090 ml Output Total 600 ml 750 ml Balance 640 ml 340 ml Intake Free Water 400 ml 250 ml Tube Feeding 840 ml 840 ml Output Urine Total 450 ml 650 ml Stool Total 150 ml 100 ml Height (Feet): 5 Height (Inches): 2.00 Weight (Pounds): 125 Objective Thin woman in JAMES no distress (+) diffuse skin disease NCAT neck supple , (+) Trach CTA RR abd soft NT ND, GT no edema Assessment/Plan Assessment/Plan: Assessment - Anemia, but with brown OB (+) stools - Diarrhea, small volume - C Diff (-) , ? tube feed related - H&H stable - Fever, PNA - Respiratory failure - Dysphagia / GT - h/o BRCA - skin disorder - lymphadenopathy on CT - liver / renal lesions on CT - infectious vs malignant Recommendations - transfuse PRN - Vital AF trial - follow stool output - conservative f/u per discussion with son - PPI - monitor labs - abx per ID - Onc f/u - repeat CT imaging later next week Priti Sequeira MD May 25, 2020 13:25
--- NOTE | 2020-05-25 14:44 | Surgery Progress Note ---
Surgery Progress Note Subjective Symptoms: improved, tolerating diet, passing flatus Objective Last 24 Hour Vital Signs Date Time Temp Pulse Resp B/P (MAP) Pulse Ox O2 Delivery O2 Flow Rate FiO2 05/25/20 13:29 105 109/71 05/25/20 12:00 40 05/25/20 12:00 Mechanical Ventilator 05/25/20 12:00 109 05/25/20 12:00 98.1 69 29 106/80 (89) 100 05/25/20 11:03 68 19 50 05/25/20 09:00 109 119/69 05/25/20 08:00 Mechanical Ventilator 05/25/20 08:00 116 05/25/20 08:00 40 05/25/20 08:00 98.9 109 20 119/69 (86) 100 05/25/20 07:07 107 18 50 05/25/20 05:52 101 127/80 05/25/20 04:00 99.0 101 18 127/80 (96) 100 05/25/20 04:00 Mechanical Ventilator 05/25/20 04:00 40 05/25/20 04:00 101 05/25/20 03:27 102 17 50 05/25/20 00:00 98.8 100 16 117/73 (88) 100 05/25/20 00:00 109 05/25/20 00:00 Mechanical Ventilator 05/25/20 00:00 40 05/24/20 22:37 108 19 50 05/24/20 21:27 89 110/66 05/24/20 21:00 89 110/66 05/24/20 20:00 Mechanical Ventilator 05/24/20 20:00 98.8 103 21 111/74 (86) 100 05/24/20 20:00 106 05/24/20 20:00 40 05/24/20 19:13 89 18 50 05/24/20 16:00 98.2 98 20 110/66 (81) 100 05/24/20 16:00 96 05/24/20 16:00 Mechanical Ventilator 05/24/20 16:00 40 05/24/20 15:07 100 20 50 I&O Intake and Output 05/24/20 05/25/20 19:00 07:00 Intake Total 1240 ml 1090 ml Output Total 600 ml 750 ml Balance 640 ml 340 ml Intake Free Water 400 ml 250 ml Tube Feeding 840 ml 840 ml Output Urine Total 450 ml 650 ml Stool Total 150 ml 100 ml Dressing: saturated Cardiovascular: RSR Respiratory: decreased breath sounds Abdomen: non-tender, present bowel sounds Extremities: no tenderness, no cyanosis Plan Problems: (1) Pneumonia (2) Symptomatic anemia (3) Decubitus skin ulcer Assessment & Plan: Pt presented on admission with Pressure Injuries, Tracheostomy,Alopecia, Generalized Hypopigmented Skin plaques. Few plaques noted to be open lesions but are pink and dry. Skin assessed under collar of trach and no areas of skin breakdown noted. Full thickness Pressure injury noted to R Buttocks(L)5.7cm x (W)1.7cm x (D)0.3cm. Base of wound is 90% beefy-red,10% slough. Borders are macerated . genna rounding dry skin with hypopigmented plaques. Full thickness Pressure injury L Buttocks(L)4.6cm x (W)4.5cm. Base of wound has clusters wounds with intertwining bridges. Wounds have mixed slough and jack appearances. Small amt serous exudate noted. Surrounding dry hypopigmented skin plaques. Proximally and in close proximity skin is denuded. Small pustule with surrounding erythema noted L Hallux(L)0.5cm x (W)0.6cm. NO changes in skin temp periwound. An area of hyperpigmentation from previous wound noted to medial/posterior R Heel. L Heel is otherwise boggy with non-blanching erythema. Reabsorbed DTPI L Heel(L)2.2cm x (W)2cm. Dry brown eschar at base of wound. NO erythema or fluctuance periwound. Unstageable Pressure injury L lateral Malleolus(L)0.7cm x (W)0.9cm. Base of wound has 100% slough.edges dry and adherent to base of wound. No erythema,induration,or fluctuance periwound. Tx.Plan: Cleanse wounds R and L Buttocks with Saline. Apply Therahoney to wounds. Apply Moisture Barrier Paste Periwound. Cover with Optifoam drsg Daily and prn. Apply Betadine to wound R Hallux. Cover with Optifoam drsg every 3 days and prn. Apply Betadine to L lateral Malleolus. Cover with Optifoam drsg. Change every 3 days and prn. Apply Cavilon Skin Barrier to both heels. Cover each heel with Optifoam drsg. Change every 7 days and prn. Apply moisture barrier paste to R and L Buttocks. Cover with Optiform dressing Q3 days and prn. Apply Cavilon skin barrier both heels cover each with Optiform dressing change Q 7 days and prn. Apply Phytoplex antifungal lotion for itching three times/day Reposition at least every 2hours or as tolerated. Off-load heels with pillow. APM/ELIDIA Mattress overlay. DAILY ESTIMATED NEEDS: Needs based on Wound, critical care, wt loss, [employer] IN [employer] TF/ 52kg 25-35 kcals/kg 2149-0465 total kcals 1.25-2 g protein/kg 65-104 g total protein 25-30 mL/kg 5497-2406 total fluid mLs NUTRITION DIAGNOSIS: Increased kcal and pro needs r/t wound healing as evidenced by admitted w/ wounds @ BL buttocks, pending eval, suspected significant wt loss of 17lbs/10.5% in <3 months. CURRENT TF:Glucerna 1.5 @ 60ml/hr x 20 hrs ENTERAL NUTRITION RECOMMENDATIONS: Glucerna 1.5 @ 50ml/hr x 24 hrs to provide 1200ml, 1800 kcal, 99g pro, 911ml free H2O - Rec 24 hour continuous TF to prevent hypoglycemia - Rec goal rate of 50ml/hr x 24 hrs - Flush per MD. HOB over 30 degrees ADDITIONAL RECOMMENDATIONS: 1) Wound care: add GT BID, continue Vit C and ZnSO4 2) Per SNF: 61 inches (5'1") and wt= 145lbs (05/02/20) -> daily calibrated bedscale wt 3) Monitor BGs, need for NISS- h/o DM 4) Monitor lytes, replete as needed (4) Lymphadenopathy Assessment & Plan: Chest: Lungs diffusely demonstrate a mixture of mosaic attenuation and groundglass opacity with an upper lobe predominance, interspersed with areas of denser consolidation in a patchy distribution, the latter with a lower lobe predominance. There is also some interstitial septal thickening. There are bilateral pleural effusions. The heart is enlarged. There is a small pericardial effusion. There is bilateral hilar and mediastinal lymphadenopathy, with numerous enlarged mediastinal lymph nodes measuring up to 2 cm long axis dimension. There is also bilateral axillary adenopathy, with some infiltration of the axillary fat on the left. There is a tracheostomy. The thyroid is atrophic. The bones are unremarkable. When compared to the previous exam, there is considerably less pleural fluid. There is also less dense parenchymal consolidation. Background groundglass opacity is similar, however. The cardiomegaly and pericardial fluid were previously evident. The mediastinal lymphadenopathy is a new finding. The axillary nodes have also increased in size. There is much less edema of the subcutaneous fat Abdomen pelvis: There is a gastrostomy. Stomach and duodenum are otherwise unremarkable. The appendix is normal. No evidence of diverticulosis or diverticulitis. There is a small amount of free intraperitoneal fluid, predominantly in the pelvis. This is somewhat high in attenuation, measuring up to 21 Hounsfield units. No small bowel distention. No free intraperitoneal gas. There is a rectal tube in place. The lack of IV contrast limits assessment of the solid organs. The liver demonstrates a low-attenuation lesion in segment 6 which demonstrates nonspecific soft tissue attenuation, is ill-defined but measures approximately 2 cm in diameter. The liver is also enlarged. Patient is status post cholecystectomy. No biliary ductal dilatation. The pancreas is unremarkable. Spleen is mildly enlarged, measuring up to 13.5 cm long axis dimension. The adrenals and kidneys are unremarkable. There are prominent but not frankly enlarged retroperitoneal nodes. No pelvic mass or adenopathy. The uterus and adnexal structures are unremarkable. There is a Vann catheter in place. Small amount of air within the bladder presumably is related to the Vann catheterization. There is mild diffuse edema of the subcutaneous fat. The bones are unremarkable. IMPRESSION: Mediastinal and bilateral hilar lymphadenopathy. This is a new finding since previous study of 02/18/2020. This could indicate inflammatory lymphadenopathy, metastatic lymphadenopathy, or lymphoproliferative disorder. Splenomegaly. This is also probably new since the previous 02/18/2020 exam, although the spleen was incompletely included on that study Bilateral parenchymal opacities, as described. Most likely on the basis of pulmonary edema, although pneumonia also possible. This is less severe than on the previous study Low-attenuation right lobe liver lesion. This could represent primary neoplasm, metastatic neoplasm, benign hemangioma, among other possibilities. Consider further evaluation with multiphasic contrast enhanced CT Bilateral pleural effusions, much decreased since the previous exam Tracheostomy Diffuse edema of the subcutaneous fat, improved since 02/18/2020 Free intraperitoneal fluid. High attenuation of this indicates that it could be bloody Rectal tube Gastrostomy Vann catheter (5) Liver mass Assessment & Plan: noted on CT pending repeat CT with contrast - noted ? infection vs abscess? ?mets? Abnormal right kidney, with areas of low attenuation as described likely representing areas of nephritis. There is a complex lesion coming off the lower pole of the right kidney. This could represent a renal neoplasm, but findings are somewhat suspicious for a small abscess. Hepatic abnormality described previously is demonstrated to have mostly low attenuation with some rim enhancement. As this is contiguous with an area of apparent inflammatory change in the right kidney, this could represent a small liver abscess secondary to hepatic invasion of renal infection. This could also represent a complex cyst or an infected cyst. Given the contiguity to the right kidney, it is also possible but less likely that this represents an exophytic renal abscess indenting the liver. Abnormal low-attenuation areas in the left kidney likewise are suspicious for areas of multifocal nephritis. There is a complex low-attenuation lesion with rim enhancement and septation. This could represent a complicated cyst or could represent a small renal abscess. Cystic neoplasm also possible although less likely. Sonography may be useful to better characterize if clinically indicated. Bilateral basilar pulmonary parenchymal infiltrates, likely pneumonia or pulmonary edema secondary to congestive heart failure Trace left pleural effusion also noted Hepatomegaly Thyromegaly Ascites fluid Rectal tube and gastrostomy noted. Cardiomegaly Zia Chung May 25, 2020 14:44
--- NOTE | 2020-05-25 15:29 | Pulmonology Progress Note ---
Subjective ROS Limited/Unobtainable: Yes Constitutional: Reports: fever, other - Fs=759.4 Allergies: Coded Allergies: No Known Allergies (Unverified , 02/09/20) Objective Last 24 Hour Vital Signs Date Time Temp Pulse Resp B/P (MAP) Pulse Ox O2 Delivery O2 Flow Rate FiO2 05/25/20 13:29 105 109/71 05/25/20 12:00 40 05/25/20 12:00 Mechanical Ventilator 05/25/20 12:00 109 05/25/20 12:00 98.1 69 29 106/80 (89) 100 05/25/20 11:03 68 19 50 05/25/20 09:00 109 119/69 05/25/20 08:00 Mechanical Ventilator 05/25/20 08:00 116 05/25/20 08:00 40 05/25/20 08:00 98.9 109 20 119/69 (86) 100 05/25/20 07:07 107 18 50 05/25/20 05:52 101 127/80 05/25/20 04:00 99.0 101 18 127/80 (96) 100 05/25/20 04:00 Mechanical Ventilator 05/25/20 04:00 40 05/25/20 04:00 101 05/25/20 03:27 102 17 50 05/25/20 00:00 98.8 100 16 117/73 (88) 100 05/25/20 00:00 109 05/25/20 00:00 Mechanical Ventilator 05/25/20 00:00 40 05/24/20 22:37 108 19 50 05/24/20 21:27 89 110/66 05/24/20 21:00 89 110/66 05/24/20 20:00 Mechanical Ventilator 05/24/20 20:00 98.8 103 21 111/74 (86) 100 05/24/20 20:00 106 05/24/20 20:00 40 05/24/20 19:13 89 18 50 05/24/20 16:00 98.2 98 20 110/66 (81) 100 05/24/20 16:00 96 05/24/20 16:00 Mechanical Ventilator 05/24/20 16:00 40 Intake and Output 05/24/20 05/25/20 19:00 07:00 Intake Total 1240 ml 1090 ml Output Total 600 ml 750 ml Balance 640 ml 340 ml Intake Free Water 400 ml 250 ml Tube Feeding 840 ml 840 ml Output Urine Total 450 ml 650 ml Stool Total 150 ml 100 ml Current Medications Medications (Trade) Dose Ordered Sig/Lucy Route PRN Reason Start Time Stop Time Status Last Admin Dose Admin Acetaminophen (Tylenol) 650 mg Q4H PRN GT Mild Pain, Temp >100.5 05/16/20 17:45 06/15/20 17:44 05/25/20 03:24 Al Hydroxide/Mg Hydroxide (Mylanta) 30 ml Q4H PRN GT Abdominal cramps 05/16/20 17:45 06/15/20 17:44 Ascorbic Acid (Vitamin C) 500 mg DAILY GT 05/17/20 09:00 06/16/20 08:59 05/25/20 09:01 Clonidine HCl (Catapres Tab) 0.1 mg Q6H PRN GT SBP>160 or DBP>90 05/16/20 19:45 08/14/20 19:44 Diltiazem HCl (Cardizem Tab) 30 mg EVERY 8 HOURS GT 05/16/20 22:00 06/15/20 21:59 05/25/20 05:52 Diphenhydramine HCl (Benadryl) 25 mg Q6H PRN NG Itching 05/16/20 21:45 06/15/20 21:44 05/25/20 03:25 Epoetin Liam (Epoetin Liam-EPBX(NON ESRD)) 10,000 unit TUE-TUE-TUE SUBQ 05/16/20 21:00 08/14/20 20:59 05/23/20 21:53 Famotidine (Pepcid) 20 mg BID GT 05/17/20 09:00 08/15/20 08:59 05/25/20 09:01 Levothyroxine Sodium (Synthroid) 100 mcg DAILY@0630 GT 05/17/20 06:30 06/16/20 06:29 05/25/20 05:52 Meropenem 1 gm/ Sodium Chloride 55 ml @ 110 mls/hr Q8HR IVPB 05/22/20 13:00 05/27/20 12:59 05/25/20 13:29 Metoprolol Tartrate (Lopressor) 12.5 mg Q12HR GT 05/16/20 21:00 08/14/20 20:59 05/25/20 09:00 Multivitamins (Multivitamins W/ Minerals 15ml Liquid) 15 ml DAILY GT 05/17/20 09:00 06/16/20 08:59 05/25/20 09:01 Zinc Sulfate (Zinc Sulfate) 220 mg DAILY GT 05/17/20 09:00 08/15/20 08:59 05/25/20 09:01 Assessment/Plan Assessment/Plan Pulmonary Progress Note Subjective ROS Limited/Unobtainable: Yes Constitutional: Denies: fever Allergies: Coded Allergies: No Known Allergies (Unverified , 02/09/20) Subjective care noted anemic elevated CRP ++ lymphadenopathy Oncology following enlarged spleen and liver lesion Focal nephritis-possible infection- ID following Objective Vital Signs noted Objective WDWN NAD trach reduced breath sounds bilaterally without rhonchi or wheeze [id number] without MRG NABS nontender Gt no CCE nonfocal Laboratory Tests noted Medications noted Assessment/Plan Assessment/Plan Anemia, status post blood transfusion history of UTI Chronic respiratory failure , ventilator dependent with tracheostomy status Dysphagia, feeding by G-tube History of sepsis Decubitus skin ulcer present on admission Chronic dermatitis Hypotension pericardial effusion small elevated CRP pulmonary hypertension ++lymphadenopathy splenomegaly liver lesion Breast cancer PLAN ID noted heme/onc eval noted and discussed nutrition care reviewed vent support CT body reviewed reviewed echo impression, plan, and exam edited and reviewed in detail care discussed with Luis Felipe Andrea MD May 25, 2020 15:29
[2020-05-25 16:00] VITALS: BP 105/73
--- NOTE | 2020-05-25 16:30 | NUR ---
NURSE NOTES: Pt is given sponge bath. Pt is turned and repositioned, wounds cleaned and dressed. Pt tolerated. Vital signs remain stable. Tolerating vent setting with O2 sat 99-100%. Vann cath is intact and patent. Tolerating G-tube feeding of Vital AF 2 70cc/hr. Will continue to monitor pt.
--- NOTE | 2020-05-25 19:47 | NUR ---
NURSE HAND-OFF REPORT: Important Events on Shift:None Patient Status: Full code Diet: Vital AF @ 70cc/hr Pending Orders: N Pending Results/Labs:N Pending MD notification:N Latest Vital Signs: Temperature 99.5 , Pulse 114 , B/P 105 /73 , Respiratory Rate 20 , O2 SAT 100 , Mechanical Ventilator, O2 Flow Rate . Vital Sign Comment: Stable EKG Rhythm: Sinus Tachycardia Rhythm change?: N MD Notified?: Juan Sorto MD Response: Latest Hope Fall Score: 35 Fall Risk: Medium Risk Safety Measures: Call light Within Reach, Bed Alarm Zone 1, Side Rails Side Rails x2, Bed position Low and Locked. Fall Precautions: Yellow Socks Yellow Gown Door Sign Patient Fall Education Report given to MAGI Cortez.
[2020-05-25 20:00] VITALS: BP 113/94
--- NOTE | 2020-05-25 22:00 | NUR ---
NURSE NOTES: Patient noted itching and scratching and c/o pain on scratch padilla. House lotion provided and PRN pain and itching medications provided and tolerated well. Will continue to monitor.
[2020-05-26] VITALS: BP 122/70
--- NOTE | 2020-05-26 01:00 | NUR ---
NURSE NOTES: Noted patient asleep. No acute distress noted at this time. Will continue to monitor.
--- NOTE | 2020-05-26 01:40 | Cardiology Progress Note ---
Subjective DATE OF SERVICE: May 25, 2020 Baseline mentation; noncommunicative Monitor: sinus with PAC's; no sustained runs of atrial arrhythmias Labs notable for elevated sodium level. Remains on vent support via trach. Objective Last 24 Hour Vital Signs Date Time Temp Pulse Resp B/P (MAP) Pulse Ox O2 Delivery O2 Flow Rate FiO2 05/26/20 00:00 Mechanical Ventilator 05/26/20 00:00 40 05/26/20 00:00 117 05/26/20 00:00 99.1 113 20 122/70 (87) 100 05/25/20 22:45 109 17 40 05/25/20 21:25 111 113/94 05/25/20 21:00 111 113/94 05/25/20 20:00 100.3 111 20 113/94 (100) 100 05/25/20 20:00 Mechanical Ventilator 05/25/20 20:00 100 05/25/20 20:00 40 05/25/20 19:28 114 20 40 05/25/20 16:00 40 05/25/20 16:00 99.5 98 20 105/73 (84) 100 05/25/20 16:00 117 05/25/20 16:00 Mechanical Ventilator 05/25/20 15:03 105 17 50 05/25/20 13:29 105 109/71 05/25/20 12:00 40 05/25/20 12:00 Mechanical Ventilator 05/25/20 12:00 109 05/25/20 12:00 98.1 69 29 106/80 (89) 100 05/25/20 11:03 68 19 50 05/25/20 09:00 109 119/69 05/25/20 08:00 Mechanical Ventilator 05/25/20 08:00 116 05/25/20 08:00 40 05/25/20 08:00 98.9 109 20 119/69 (86) 100 05/25/20 07:07 107 18 50 05/25/20 05:52 101 127/80 05/25/20 04:00 99.0 101 18 127/80 (96) 100 05/25/20 04:00 Mechanical Ventilator 05/25/20 04:00 40 05/25/20 04:00 101 05/25/20 03:27 102 17 50 HEENT: Thick Trach secretions RHYTHM: NSR, Afib LUNGS: bilateral rhonchi CARDIAC: normal rate, regular rhythm, normal S1 and S2, other - ectopic beats ABDOMEN: normal bowel sounds, non tender, soft, hepatomegaly, splenomegaly, G- Tube intact EXTREMITIES: non-tender, no calf tenderness, trace edema Assessment/Plan Assessment/Plan Polymicrobial healthcare associated PNA Vent dep respiratory failure Paroxysmal AFib/SVT Hx breast CA Lymphadenopathy with splenomegaly Dehydration/hypernatremia Hypokalemia Vent support Avoid beta agonist Abx Monitor volume status; free water replacement Maintain therapeutic K+/Mg++ levels Titrate beta mingo dose Recheck thyroid panel Luis Felipe Sorto MD May 26, 2020 01:40
--- NOTE | 2020-05-26 02:59 | Consultation ---
DATE OF CONSULTATION: 05/24/2020 CONSULTING PHYSICIAN: Luis Felipe Sorto M.D. REQUESTING PHYSICIAN: Stevenson Medina M.D. REASON FOR CONSULTATION: Arrhythmia. HISTORY OF PRESENT ILLNESS: This 54-year-old female with tracheostomy and ventilator dependence was admitted to the hospital on 05/16/2020 with acute pneumonia. Her course has been complicated with polymicrobial pathogen, worsening respiratory failure, lymphadenopathy, and splenomegaly. She has also had episodes of tachyarrhythmias today prompting this consultation. The patient is nonverbal. PAST MEDICAL HISTORY: Includes hypertension, breast cancer, respiratory failure with trach, anemia of chronic disease, and dysphagia with G-tube. ALLERGIES: None known. MEDICATIONS: Reviewed and reconciled. SOCIAL HISTORY: Not obtainable. FAMILY HISTORY: Not obtainable. PHYSICAL EXAMINATION: VITAL SIGNS: Blood pressure 103/63, pulse 93, respirations 20, temperature 100.4, heart rate ranging from 93 to 112. CARDIAC: Monitored rhythm sinus. Sinus tachycardia. Paroxysm of atrial fibrillation is noted with some short runs of SVT. Rapid rhythm rapid rate. Normal S1 and S2. LUNGS: Bilateral breath sounds with rhonchi. Thick secretions from the trach. ABDOMEN: Soft. G-tube is intact. EXTREMITIES: Trace edema. LABORATORY DATA: Echocardiogram on 05/17/2020 was performed and notable for ejection fraction of 55%, mild mitral regurgitation and moderate pulmonary hypertension with PA systolic of 45 mmHg. No recent chemistry panel available. IMPRESSION: 1. Ventilator-dependent respiratory failure. 2. Dehydration. 3. ____. 4. Hospital-acquired pneumonia. 5. Paroxysmal atrial tachyarrhythmias. 6. Severe protein-calorie malnutrition. 7. History of breast cancer. 8. Anemia of chronic disease. 9. Hypothyroidism, on replacement therapy. PLAN: 1. Antimicrobials. 2. Recheck laboratory studies. 3. Continue low-dose beta-mingo. 4. Check thyroid function. 5. Limit use of beta-agonist. 6. DVT prophylaxis. 7. We will follow. Luis Felipe Sorto M.D. DR: ANGELINA JOB#: [id number] CC:
--- NOTE | 2020-05-26 03:00 | NUR ---
NURSE NOTES: Patient asleep, Tolerating vent settings well. No sign of acute distress noted. Will continue to monitor.
[2020-05-26 04:00] VITALS: BP 119/77
[2020-05-26] MEDS: dilTIAZem HCl 30mg tab GT SCH ×3 (06:16→21:12)
[2020-05-26] MEDS: Meropenem 1 GM in NS 55 ML IVPB SCH ×3 (06:17→21:19)
--- NOTE | 2020-05-26 06:50 | Hematology/Onc Progress Note ---
Assessment/Plan Assessment/Plan Assessment and Recs # Breast cancer, stage IV, on chemotherapy as outpatient --> obtain further records, order placed-->last chemo was march 2019, s/p 5 cycles --> katie explain lymphadenopathy as seen on ct --> Ct repeated with contrast shows no significant lad # Pancytopenia is due to recent chemo and infection --> imaging has been reviewed, does have splenomegaly --> hep and hiv are neg --> imaging abd reviewed --> hgb 9.7 --> EPOGEN started --> sp transfusion prbc # Pneumonia with b/l infiltrates --> s/p abx meropenem --> per ID # Resp failure s/p trach/vent # Splenomegaly. 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 Appreciate consultation and jelly Rn/Md Subjective Constitutional: Denies: no symptoms, chills, fever, malaise, weakness, other HEENT: Denies: no symptoms, eye pain, blurred vision, tearing, double vision, ear pain, ear discharge, nose pain, nose congestion, throat pain, throat swelling, mouth pain, mouth swelling, other Cardiovascular: Denies: no symptoms, chest pain, edema, irregular heart rate, lightheadedness, palpitations, syncope, other Respiratory: Denies: no symptoms, cough, shortness of breath, SOB with excertion, SOB at rest, sputum, wheezing, other Genitourinary: Denies: no symptoms, burning, discharge, frequency, flank pain, hematuria, incontinence, pain, urgency, other Neurologic/Psychiatric: Denies: no symptoms, anxiety, depressed, emotional problems, headache, numbness, paresthesia, pre-existing deficit, seizure, tingling, tremors, weakness, other Endocrine: Denies: no symptoms, excessive sweating, flushing, intolerance to cold, intolerance to heat, increased hunger, increased thirst, increased urine, unexplained weight gain, unexplained weight loss, other Allergies: Coded Allergies: No Known Allergies (Unverified , 02/09/20) Subjective 05/22 on bipap, desaturates overnight, no bleeding, smear reviewed 05/23 is awake, with itching, meds noted, no bleeding, jelly remy 05/25 labs are reviewed, meds noted, no major changes, hgb 9.7 05/26 itching, scratching and on mech vent, no bleeding Objective Objective Current Medications Medications (Trade) Dose Ordered Sig/Lucy Route PRN Reason Start Time Stop Time Status Last Admin Dose Admin Acetaminophen (Tylenol) 650 mg Q4H PRN GT Mild Pain, Temp >100.5 05/16/20 17:45 06/15/20 17:44 05/25/20 22:07 Al Hydroxide/Mg Hydroxide (Mylanta) 30 ml Q4H PRN GT Abdominal cramps 05/16/20 17:45 06/15/20 17:44 Ascorbic Acid (Vitamin C) 500 mg DAILY GT 05/17/20 09:00 06/16/20 08:59 05/25/20 09:01 Clonidine HCl (Catapres Tab) 0.1 mg Q6H PRN GT SBP>160 or DBP>90 05/16/20 19:45 08/14/20 19:44 Diltiazem HCl (Cardizem Tab) 30 mg EVERY 8 HOURS GT 05/16/20 22:00 06/15/20 21:59 05/26/20 06:16 Diphenhydramine HCl (Benadryl) 25 mg Q6H PRN NG Itching 05/16/20 21:45 06/15/20 21:44 05/25/20 22:07 Epoetin Liam (Epoetin Liam-EPBX(NON ESRD)) 10,000 unit TUE-TUE-TUE SUBQ 05/16/20 21:00 08/14/20 20:59 05/23/20 21:53 Famotidine (Pepcid) 20 mg BID GT 05/17/20 09:00 08/15/20 08:59 05/25/20 17:41 Levothyroxine Sodium (Synthroid) 100 mcg DAILY@0630 GT 05/17/20 06:30 06/16/20 06:29 05/26/20 06:16 Meropenem 1 gm/ Sodium Chloride 55 ml @ 110 mls/hr Q8HR IVPB 05/22/20 13:00 05/27/20 12:59 05/26/20 06:17 Metoprolol Tartrate (Lopressor) 12.5 mg Q12HR GT 05/16/20 21:00 08/14/20 20:59 05/25/20 09:00 Multivitamins (Multivitamins W/ Minerals 15ml Liquid) 15 ml DAILY GT 05/17/20 09:00 06/16/20 08:59 05/25/20 09:01 Zinc Sulfate (Zinc Sulfate) 220 mg DAILY GT 05/17/20 09:00 08/15/20 08:59 05/25/20 09:01 Last 24 Hour Vital Signs Date Time Temp Pulse Resp B/P (MAP) Pulse Ox O2 Delivery O2 Flow Rate FiO2 05/26/20 06:16 122 122/70 05/26/20 04:00 Mechanical Ventilator 05/26/20 04:00 99.0 112 16 119/77 (91) 100 05/26/20 04:00 40 05/26/20 04:00 111 05/26/20 03:34 122 17 40 05/26/20 00:00 Mechanical Ventilator 05/26/20 00:00 40 05/26/20 00:00 117 05/26/20 00:00 99.1 113 20 122/70 (87) 100 05/25/20 22:45 109 17 40 05/25/20 21:25 111 113/94 05/25/20 21:00 111 113/94 05/25/20 20:00 100.3 111 20 113/94 (100) 100 05/25/20 20:00 Mechanical Ventilator 05/25/20 20:00 100 05/25/20 20:00 40 05/25/20 19:28 114 20 40 05/25/20 16:00 40 05/25/20 16:00 99.5 98 20 105/73 (84) 100 05/25/20 16:00 117 05/25/20 16:00 Mechanical Ventilator 05/25/20 15:03 105 17 50 05/25/20 13:29 105 109/71 05/25/20 12:00 40 05/25/20 12:00 Mechanical Ventilator 05/25/20 12:00 109 05/25/20 12:00 98.1 69 29 106/80 (89) 100 05/25/20 11:03 68 19 50 05/25/20 09:00 109 119/69 05/25/20 08:00 Mechanical Ventilator 05/25/20 08:00 116 05/25/20 08:00 40 05/25/20 08:00 98.9 109 20 119/69 (86) 100 05/25/20 07:07 107 18 50 05/25/20 05:52 101 127/80 05/25/20 04:00 99.0 101 18 127/80 (96) 100 05/25/20 04:00 Mechanical Ventilator 05/25/20 04:00 40 05/25/20 04:00 101 05/25/20 03:27 102 17 50 05/25/20 00:00 98.8 100 16 117/73 (88) 100 05/25/20 00:00 109 05/25/20 00:00 Mechanical Ventilator 05/25/20 00:00 40 05/24/20 22:37 108 19 50 05/24/20 21:27 89 110/66 05/24/20 21:00 89 110/66 05/24/20 20:00 Mechanical Ventilator 05/24/20 20:00 98.8 103 21 111/74 (86) 100 05/24/20 20:00 106 05/24/20 20:00 40 05/24/20 19:13 89 18 50 05/24/20 16:00 98.2 98 20 110/66 (81) 100 05/24/20 16:00 96 05/24/20 16:00 Mechanical Ventilator 05/24/20 16:00 40 05/24/20 15:07 100 20 50 05/24/20 14:00 99.8 05/24/20 13:30 93 103/63 05/24/20 13:03 201 05/24/20 12:00 104 05/24/20 12:00 Mechanical Ventilator 05/24/20 12:00 40 05/24/20 12:00 100.4 93 20 103/63 (76) 98 05/24/20 11:02 105 20 50 05/24/20 08:54 105 109/67 05/24/20 08:00 110 05/24/20 08:00 40 05/24/20 08:00 Mechanical Ventilator 05/24/20 08:00 99.0 105 18 109/67 (81) 98 05/24/20 07:02 108 18 50 l Intake and Output 05/25/20 05/26/20 19:00 07:00 Intake Total 1055 ml 900 ml Output Total 650 ml 650 ml Balance 405 ml 250 ml Intake Free Water 230 ml 200 ml IV Total 55 ml Tube Feeding 770 ml 700 ml Output Urine Total 650 ml 650 ml Height (Feet): 5 Height (Inches): 2.00 Weight (Pounds): 125 Objective PE General: Awake and alert, nad HEENT: NC/AT. EOMI. Neck: Tracheostomy in place. Cardiovascular: Tachycardic. S1 and S2 normal. Resp: Vent dependent through tracheostomy. Abdomen: Abdomen is soft, nondistended. G-tube in place Skin: Diffuse hypopigmentation over the skin. Patient is itchy MSK: Normal tone and bulk. Moving all extremities. Neuro: Awake and alert. Mentating appropriately. Toby Mauricio MD May 26, 2020 06:50
--- NOTE | 2020-05-26 07:30 | NUR ---
NURSE HAND-OFF REPORT: Important Events on Shift:IV ATB Patient Status: Stable Diet: GT Pending Orders: Pending Results/Labs: Pending MD notification: Latest Vital Signs: Temperature 99.0 , Pulse 122 , B/P 122 /70 , Respiratory Rate 16 , O2 SAT 100 , Mechanical Ventilator, O2 Flow Rate . Vital Sign Comment: EKG Rhythm: Sinus Tachycardia Rhythm change?: N MD Notified?: Juan Sorto MD Response: Latest Hope Fall Score: 35 Fall Risk: Medium Risk Safety Measures: Call light Within Reach, Bed Alarm Zone 1, Side Rails Side Rails x2, Bed position Low and Locked. Fall Precautions: Yellow Socks Yellow Gown Door Sign Patient Fall Education Report given to MAGI Harris.
--- NOTE | 2020-05-26 07:35 | NUR ---
NURSE NOTES: Report received from Erasmo Iraheta RN.Pt awake,alert able to follow simple commands,noted no resp distress with trach tube to vent ,ordered vent settings tolerated ,no signs of pain or discomfort,S-Tach on the monitor,GTF Vital AF 1.2 at 70 ml/hr,no residual noted, Vann cath draining yellow urine,skin warm,very dry scaly and with vitiligo ,IV site to LFA intact ,SR up x2 HOB elevated bed lock in lowest position will continue with plans of care.
[2020-05-26 08:00] VITALS: BP 112/66
--- NOTE | 2020-05-26 08:43 | Pulmonology Progress Note ---
Subjective ROS Limited/Unobtainable: Yes Constitutional: Reports: fever, other - Ye=301.4 Allergies: Coded Allergies: No Known Allergies (Unverified , 02/09/20) Subjective care noted anemic tachycardic elevated CRP ++ lymphadenopathy enlarged spleen and liver lesion Objective Last 24 Hour Vital Signs Date Time Temp Pulse Resp B/P (MAP) Pulse Ox O2 Delivery O2 Flow Rate FiO2 05/26/20 06:16 122 122/70 05/26/20 04:00 Mechanical Ventilator 05/26/20 04:00 99.0 112 16 119/77 (91) 100 05/26/20 04:00 40 05/26/20 04:00 111 05/26/20 03:34 122 17 40 05/26/20 00:00 Mechanical Ventilator 05/26/20 00:00 40 05/26/20 00:00 117 05/26/20 00:00 99.1 113 20 122/70 (87) 100 05/25/20 22:45 109 17 40 05/25/20 21:25 111 113/94 05/25/20 21:00 111 113/94 05/25/20 20:00 100.3 111 20 113/94 (100) 100 05/25/20 20:00 Mechanical Ventilator 05/25/20 20:00 100 05/25/20 20:00 40 05/25/20 19:28 114 20 40 05/25/20 16:00 40 05/25/20 16:00 99.5 98 20 105/73 (84) 100 05/25/20 16:00 117 05/25/20 16:00 Mechanical Ventilator 05/25/20 15:03 105 17 50 05/25/20 13:29 105 109/71 05/25/20 12:00 40 05/25/20 12:00 Mechanical Ventilator 05/25/20 12:00 109 05/25/20 12:00 98.1 69 29 106/80 (89) 100 05/25/20 11:03 68 19 50 05/25/20 09:00 109 119/69 Intake and Output 05/25/20 05/26/20 19:00 07:00 Intake Total 1055 ml 900 ml Output Total 650 ml 650 ml Balance 405 ml 250 ml Intake Free Water 230 ml 200 ml IV Total 55 ml Tube Feeding 770 ml 700 ml Output Urine Total 650 ml 650 ml Objective WDWN NAD trach reduced breath sounds bilaterally without rhonchi or wheeze [id number] tachy without MRG NABS nontender Gt no CCE nonfocal Current Medications Medications (Trade) Dose Ordered Sig/Lucy Route PRN Reason Start Time Stop Time Status Last Admin Dose Admin Acetaminophen (Tylenol) 650 mg Q4H PRN GT Mild Pain, Temp >100.5 05/16/20 17:45 06/15/20 17:44 05/25/20 22:07 Al Hydroxide/Mg Hydroxide (Mylanta) 30 ml Q4H PRN GT Abdominal cramps 05/16/20 17:45 06/15/20 17:44 Ascorbic Acid (Vitamin C) 500 mg DAILY GT 05/17/20 09:00 06/16/20 08:59 05/25/20 09:01 Clonidine HCl (Catapres Tab) 0.1 mg Q6H PRN GT SBP>160 or DBP>90 05/16/20 19:45 08/14/20 19:44 Diltiazem HCl (Cardizem Tab) 30 mg EVERY 8 HOURS GT 05/16/20 22:00 06/15/20 21:59 05/26/20 06:16 Diphenhydramine HCl (Benadryl) 25 mg Q6H PRN NG Itching 05/16/20 21:45 06/15/20 21:44 05/25/20 22:07 Epoetin Liam (Epoetin Liam-EPBX(NON ESRD)) 10,000 unit TUE-TUE-TUE SUBQ 05/16/20 21:00 08/14/20 20:59 05/23/20 21:53 Famotidine (Pepcid) 20 mg BID GT 05/17/20 09:00 08/15/20 08:59 05/25/20 17:41 Levothyroxine Sodium (Synthroid) 100 mcg DAILY@0630 GT 05/17/20 06:30 06/16/20 06:29 05/26/20 06:16 Meropenem 1 gm/ Sodium Chloride 55 ml @ 110 mls/hr Q8HR IVPB 05/22/20 13:00 05/27/20 12:59 05/26/20 06:17 Metoprolol Tartrate (Lopressor) 12.5 mg Q12HR GT 05/16/20 21:00 08/14/20 20:59 05/25/20 09:00 Multivitamins (Multivitamins W/ Minerals 15ml Liquid) 15 ml DAILY GT 05/17/20 09:00 06/16/20 08:59 05/25/20 09:01 Zinc Sulfate (Zinc Sulfate) 220 mg DAILY GT 05/17/20 09:00 08/15/20 08:59 05/25/20 09:01 Assessment/Plan Assessment/Plan Anemia, status post blood transfusion history of UTI Chronic respiratory failure , ventilator dependent with tracheostomy status Dysphagia, feeding by G-tube History of sepsis Decubitus skin ulcer present on admission Chronic dermatitis Hypotension pericardial effusion small elevated CRP pulmonary hypertension ++lymphadenopathy splenomegaly liver lesion Breast cancer PLAN heme/onc eval noted and discussed nutrition care reviewed vent support CT body reviewed reviewed echo update family once further evaluate by oncology dc planning prognosis overall poor impression, plan, and exam edited and reviewed in detail care discussed with Stevenson Emerson MD May 26, 2020 08:43
[2020-05-26] MEDS: Zinc Sulfate 220mg GT SCH (09:30)
[2020-05-26] MEDS: Multivitamins W/Minerals 15 ML UDC GT SCH (09:30)
[2020-05-26] MEDS: Metoprolol Tartrate 12.5mg TAB GT SCH ×2 (09:30→21:11)
[2020-05-26] MEDS: Ascorbic Acid 500mg tab GT SCH (09:30)
--- NOTE | 2020-05-26 10:00 | NUR ---
NURSE NOTES: Pt pulled up turned and repositioned,tracheal secretions suctioned PRN HOB elevated
--- NOTE | 2020-05-26 11:18 | Infectious Diseases Prog Note ---
Assessment/Plan Assessment/Plan antibiotics : meropenem A 1. acenitobacter, proteus, pseudomonas pneumonia COVID 19 negative 2. breast cancer 3. respiratory failure s/p tracheostomy 4. ? 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 continue meropenem 2 more days 2. will follow up cultures Subjective ROS Limited/Unobtainable: Yes Allergies: Coded Allergies: No Known Allergies (Unverified , 02/09/20) Objective Last 24 Hour Vital Signs Date Time Temp Pulse Resp B/P (MAP) Pulse Ox O2 Delivery O2 Flow Rate FiO2 05/26/20 09:30 111 112/66 05/26/20 08:00 105 05/26/20 08:00 40 05/26/20 08:00 Mechanical Ventilator 05/26/20 08:00 97.7 111 16 112/66 (81) 97 05/26/20 07:10 111 16 40 05/26/20 06:16 122 122/70 05/26/20 04:00 Mechanical Ventilator 05/26/20 04:00 99.0 112 16 119/77 (91) 100 05/26/20 04:00 40 05/26/20 04:00 111 05/26/20 03:34 122 17 40 05/26/20 00:00 Mechanical Ventilator 05/26/20 00:00 40 05/26/20 00:00 117 05/26/20 00:00 99.1 113 20 122/70 (87) 100 05/25/20 22:45 109 17 40 05/25/20 21:25 111 113/94 05/25/20 21:00 111 113/94 05/25/20 20:00 100.3 111 20 113/94 (100) 100 05/25/20 20:00 Mechanical Ventilator 05/25/20 20:00 100 05/25/20 20:00 40 05/25/20 19:28 114 20 40 05/25/20 16:00 40 05/25/20 16:00 99.5 98 20 105/73 (84) 100 05/25/20 16:00 117 05/25/20 16:00 Mechanical Ventilator 05/25/20 15:03 105 17 50 05/25/20 13:29 105 109/71 05/25/20 12:00 40 05/25/20 12:00 Mechanical Ventilator 05/25/20 12:00 109 05/25/20 12:00 98.1 69 29 106/80 (89) 100 Height (Feet): 5 Height (Inches): 2.00 Weight (Pounds): 125 HEENT: status post trach Respiratory/Chest: lungs clear Cardiovascular: normal rate, regular rhythm, no gallop/murmur Abdomen: soft, non tender, other - GT Extremities: no edema Current Medications Medications (Trade) Dose Ordered Sig/Lucy Route PRN Reason Start Time Stop Time Status Last Admin Dose Admin Acetaminophen (Tylenol) 650 mg Q4H PRN GT Mild Pain, Temp >100.5 05/16/20 17:45 06/15/20 17:44 05/25/20 22:07 Al Hydroxide/Mg Hydroxide (Mylanta) 30 ml Q4H PRN GT Abdominal cramps 05/16/20 17:45 06/15/20 17:44 Ascorbic Acid (Vitamin C) 500 mg DAILY GT 05/17/20 09:00 06/16/20 08:59 05/26/20 09:30 Clonidine HCl (Catapres Tab) 0.1 mg Q6H PRN GT SBP>160 or DBP>90 05/16/20 19:45 08/14/20 19:44 Diltiazem HCl (Cardizem Tab) 30 mg EVERY 8 HOURS GT 05/16/20 22:00 06/15/20 21:59 05/26/20 06:16 Diphenhydramine HCl (Benadryl) 25 mg Q6H PRN NG Itching 05/16/20 21:45 06/15/20 21:44 05/25/20 22:07 Epoetin Liam (Epoetin Liam-EPBX(NON ESRD)) 10,000 unit TUE-TUE-TUE SUBQ 05/16/20 21:00 08/14/20 20:59 05/23/20 21:53 Famotidine (Pepcid) 20 mg BID GT 05/17/20 09:00 08/15/20 08:59 05/26/20 09:30 Levothyroxine Sodium (Synthroid) 100 mcg DAILY@0630 GT 05/17/20 06:30 06/16/20 06:29 05/26/20 06:16 Meropenem 1 gm/ Sodium Chloride 55 ml @ 110 mls/hr Q8HR IVPB 05/22/20 13:00 05/27/20 12:59 05/26/20 06:17 Metoprolol Tartrate (Lopressor) 12.5 mg Q12HR GT 05/16/20 21:00 08/14/20 20:59 05/26/20 09:30 Multivitamins (Multivitamins W/ Minerals 15ml Liquid) 15 ml DAILY GT 05/17/20 09:00 06/16/20 08:59 05/26/20 09:30 Zinc Sulfate (Zinc Sulfate) 220 mg DAILY GT 05/17/20 09:00 08/15/20 08:59 05/26/20 09:30 Hong Camacho MD May 26, 2020 11:18
[2020-05-26 12:00] VITALS: BP 128/81
--- NOTE | 2020-05-26 12:39 | NUR ---
RD ASSESSMENT & RECOMMENDATIONS SEE CARE ACTIVITY FOR COMPLETE ASSESSMENT DAILY ESTIMATED NEEDS: Needs based on Wound, critical care, wt loss, OTR VAN [employer] TF/ 52kg 25-35 kcals/kg 7683-9277 total kcals 1.25-2 g protein/kg 65-104 g total protein 25-30 mL/kg 4215-2574 total fluid mLs NUTRITION DIAGNOSIS: Increased kcal and pro needs r/t wound healing as evidenced by admitted w/ wounds @ BL buttocks, pending eval, suspected significant wt loss of 17lbs/10.5% in <3 months. CURRENT TF:Now Vital AF 1.2 @ 70ml/hr x 20 hrs ENTERAL NUTRITION RECOMMENDATIONS: Continue Vital AF 1.2 @ 70ml/hr x 20 hrs to provide 1400ml, 1680kcal, 105g prot, 1135ml free water - Rec to continue elemental TF formula to help alleviate diarrhea - TF @ goal meets 100% est kcal/prot needs - HOB over 30 degrees/ H2O flush of 100ml q 6 hrs ADDITIONAL RECOMMENDATIONS: 1) Wound care: add GT BID, continue Vit C and ZnSO4 2) Per SNF: 61 inches (5'1") and wt= 145lbs (05/02/20) -> daily calibrated bedscale wt 3) Monitor BGs, need for NISS- h/o DM 4) Monitor lytes daily w/ diarrhea, replete as needed 5) Updated CMP, monitor hydration status (elev Na + BUN) -> last CMP done on 05/21
--- NOTE | 2020-05-26 13:08 | Surgery Progress Note ---
Surgery Progress Note Subjective Additional Comments no acute events labs noted exam stable on support Objective Last 24 Hour Vital Signs Date Time Temp Pulse Resp B/P (MAP) Pulse Ox O2 Delivery O2 Flow Rate FiO2 05/26/20 12:00 Mechanical Ventilator 05/26/20 12:00 40 05/26/20 12:00 98.2 109 19 128/81 (97) 100 05/26/20 12:00 109 05/26/20 11:05 109 16 100 Mechanical Ventilator 40 05/26/20 11:05 109 16 40 05/26/20 09:30 111 112/66 05/26/20 08:00 105 05/26/20 08:00 40 05/26/20 08:00 Mechanical Ventilator 05/26/20 08:00 97.7 111 16 112/66 (81) 97 05/26/20 07:10 111 16 40 05/26/20 06:16 122 122/70 05/26/20 04:00 Mechanical Ventilator 05/26/20 04:00 99.0 112 16 119/77 (91) 100 05/26/20 04:00 40 05/26/20 04:00 111 05/26/20 03:34 122 17 40 05/26/20 00:00 Mechanical Ventilator 05/26/20 00:00 40 05/26/20 00:00 117 05/26/20 00:00 99.1 113 20 122/70 (87) 100 05/25/20 22:45 109 17 40 05/25/20 21:25 111 113/94 05/25/20 21:00 111 113/94 05/25/20 20:00 100.3 111 20 113/94 (100) 100 05/25/20 20:00 Mechanical Ventilator 05/25/20 20:00 100 05/25/20 20:00 40 05/25/20 19:28 114 20 40 05/25/20 16:00 40 05/25/20 16:00 99.5 98 20 105/73 (84) 100 05/25/20 16:00 117 05/25/20 16:00 Mechanical Ventilator 05/25/20 15:03 105 17 50 05/25/20 13:29 105 109/71 I&O Intake and Output 05/25/20 05/26/20 19:00 07:00 Intake Total 1055 ml 900 ml Output Total 650 ml 650 ml Balance 405 ml 250 ml Intake Free Water 230 ml 200 ml IV Total 55 ml Tube Feeding 770 ml 700 ml Output Urine Total 650 ml 650 ml Dressing: dry Cardiovascular: RSR Respiratory: decreased breath sounds Abdomen: flat, non-tender, present bowel sounds, non-distended Extremities: no edema, no tenderness, no cyanosis, other Plan Problems: (1) Pneumonia (2) Symptomatic anemia (3) Decubitus skin ulcer Assessment & Plan: Pt presented on admission with Pressure Injuries, Tracheostomy,Alopecia, Generalized Hypopigmented Skin plaques. Few plaques noted to be open lesions but are pink and dry. Skin assessed under collar of trach and no areas of skin breakdown noted. Full thickness Pressure injury noted to R Buttocks(L)5.7cm x (W)1.7cm x (D)0.3cm. Base of wound is 90% beefy-red,10% slough. Borders are macerated . surrounding dry skin with hypopigmented plaques. Full thickness Pressure injury L Buttocks(L)4.6cm x (W)4.5cm. Base of wound has clusters wounds with intertwining bridges. Wounds have mixed slough and jack appearances. Small amt serous exudate noted. Surrounding dry hypopigmented skin plaques. Proximally and in close proximity skin is denuded. Small pustule with surrounding erythema noted L Hallux(L)0.5cm x (W)0.6cm. NO changes in skin temp periwound. An area of hyperpigmentation from previous wound noted to medial/posterior R Heel. L Heel is otherwise boggy with non-blanching erythema. Reabsorbed DTPI L Heel(L)2.2cm x (W)2cm. Dry brown eschar at base of wound. NO erythema or fluctuance periwound. Unstageable Pressure injury L lateral Malleolus(L)0.7cm x (W)0.9cm. Base of wound has 100% slough.edges dry and adherent to base of wound. No erythema,induration,or fluctuance periwound. Tx.Plan: Cleanse wounds R and L Buttocks with Saline. Apply Therahoney to wounds. Apply Moisture Barrier Paste Periwound. Cover with Optifoam drsg Daily and prn. Apply Betadine to wound R Hallux. Cover with Optifoam drsg every 3 days and prn. Apply Betadine to L lateral Malleolus. Cover with Optifoam drsg. Change every 3 days and prn. Apply Cavilon Skin Barrier to both heels. Cover each heel with Optifoam drsg. Change every 7 days and prn. Apply moisture barrier paste to R and L Buttocks. Cover with Optiform dressing Q3 days and prn. Apply Cavilon skin barrier both heels cover each with Optiform dressing change Q 7 days and prn. Apply Phytoplex antifungal lotion for itching three times/day Reposition at least every 2hours or as tolerated. Off-load heels with pillow. APM/ELIDIA Mattress overlay. 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 CURRENT TF:Glucerna 1.5 @ 60ml/hr x 20 hrs ENTERAL NUTRITION RECOMMENDATIONS: Glucerna 1.5 @ 50ml/hr x 24 hrs to provide 1200ml, 1800 kcal, 99g pro, 911ml free H2O - Rec 24 hour continuous TF to prevent hypoglycemia - Rec goal rate of 50ml/hr x 24 hrs - Flush per MD. HOB over 30 degrees ADDITIONAL RECOMMENDATIONS: 1) Wound care: add GT BID, continue Vit C and ZnSO4 2) Per SNF: 61 inches (5'1") and wt= 145lbs (05/02/20) -> daily calibrated bedscale wt 3) Monitor BGs, need for NISS- h/o DM 4) Monitor lytes, replete as needed (4) Lymphadenopathy Assessment & Plan: Chest: Lungs diffusely demonstrate a mixture of mosaic attenuation and groundglass opacity with an upper lobe predominance, interspersed with areas of denser consolidation in a patchy distribution, the latter with a lower lobe predominance. There is also some interstitial septal thickening. There are bilateral pleural effusions. The heart is enlarged. There is a small pericardial effusion. There is bilateral hilar and mediastinal lymphadenopathy, with numerous enlarged mediastinal lymph nodes measuring up to 2 cm long axis dimension. There is also bilateral axillary adenopathy, with some infiltration of the axillary fat on the left. There is a tracheostomy. The thyroid is atrophic. The bones are unremarkable. When compared to the previous exam, there is considerably less pleural fluid. There is also less dense parenchymal consolidation. Background groundglass opacity is similar, however. The cardiomegaly and pericardial fluid were previously evident. The mediastinal lymphadenopathy is a new finding. The axillary nodes have also increased in size. There is much less edema of the subcutaneous fat Abdomen pelvis: There is a gastrostomy. Stomach and duodenum are otherwise unremarkable. The appendix is normal. No evidence of diverticulosis or diverticulitis. There is a small amount of free intraperitoneal fluid, predominantly in the pelvis. This is somewhat high in attenuation, measuring up to 21 Hounsfield units. No small bowel distention. No free intraperitoneal gas. There is a rectal tube in place. The lack of IV contrast limits assessment of the solid organs. The liver demonstrates a low-attenuation lesion in segment 6 which demonstrates nonspecific soft tissue attenuation, is ill-defined but measures approximately 2 cm in diameter. The faina er is also enlarged. Patient is status post cholecystectomy. No biliary ductal dilatation. The pancreas is unremarkable. Spleen is mildly enlarged, measuring up to 13.5 cm long axis dimension. The adrenals and kidneys are unremarkable. There are prominent but not frankly enlarged retroperitoneal nodes. No pelvic mass or adenopathy. The uterus and adnexal structures are unremarkable. There is a Vann catheter in place. Small amount of air within the bladder presumably is related to the Vann catheterization. There is mild diffuse edema of the subcutaneous fat. The bones are unremarkable. IMPRESSION: Mediastinal and bilateral hilar lymphadenopathy. This is a new finding since previous study of 02/18/2020. This could indicate inflammatory lymphadenopathy, metastatic lymphadenopathy, or lymphoproliferative disorder. Splenomegaly. This is also probably new since the previous 02/18/2020 exam, although the spleen was incompletely included on that study Bilateral parenchymal opacities, as described. Most likely on the basis of pulmonary edema, although pneumonia also possible. This is less severe than on the pre vious study Low-attenuation right lobe liver lesion. This could represent primary neoplasm, metastatic neoplasm, benign hemangioma, among other possibilities. Consider further evaluation with multiphasic contrast enhanced CT Bilateral pleural effusions, much decreased since the previous exam Tracheostomy Diffuse edema of the subcutaneous fat, improved since 02/18/2020 Free intraperitoneal fluid. High attenuation of this indicates that it could be bloody Rectal tube Gastrostomy Vann catheter (5) Liver mass Assessment & Plan: noted on CT pending repeat CT with contrast - noted ? infection vs abscess? ?mets? Abnormal right kidney, with areas of low attenuation as described likely representing areas of nephritis. There is a complex lesion coming off the lower pole of the right kidney. This could represent a renal neoplasm, but findings are somewhat suspicious for a small abscess. Hepatic abnormality described previously is demonstrated to have mostly low attenuation with some rim enhancement. As this is contiguous with an area of apparent inflammatory change in the right kidney, this could represent a small liver abscess secondary to hepatic invasion of renal infection. This could also represent a complex cyst or an infected cyst. Given the contiguity to the right kidney, it is also possible but less likely that this represents an exophytic renal abscess indenting the liver. Abnormal low-attenuation areas in the left kidney likewise are suspicious for areas of multifocal nephritis. There is a complex low-attenuation lesion with rim enhancement and septation. This could represent a complicated cyst or could represent a small renal abscess. Cystic neoplasm also possible although less likely. Sonography may be useful to better characterize if clinically indicated. Bilateral basilar pulmonary parenchymal infiltrates, likely pneumonia or pulmonary edema secondary to congestive heart failure Trace left pleural effusion also noted Hepatomegaly Thyromegaly Ascites fluid Rectal tube and gastrostomy noted. Cardiomegaly Zia Chung May 26, 2020 13:08
--- NOTE | 2020-05-26 15:05 | NUR ---
CASE MANAGEMENT:REVIEW 05/26/20 SI: BILATERAL PNA. ANEMIA TRACH/VENT/GTUBE. PERSISTENT TACHYCARDIA 97.7 111 16 112/66 97% ON VENT SUPPORT W/40% FIO2 IS: IV MEROPENEM Q8HRS CARDIZEM GT Q8HR LOPRESSOR GT Q12 : STEP DOWN UNIT DCP: FROM [facility]
--- NOTE | 2020-05-26 15:59 | NUR ---
NURSE NOTES: IV to RFA infiltrated,pt c/o pain to site,removed and tried to reinsert,but pt is a hard stick.will try again later.
[2020-05-26 16:00] VITALS: BP 126/72
--- NOTE | 2020-05-26 16:00 | NUR ---
NURSE NOTES: IV insertion done to RAC # 20 G angio cath by Kanchan Hayward RN,procedure tolerated well.
--- NOTE | 2020-05-26 19:05 | NUR ---
NURSE HAND-OFF REPORT: Important Events on Shift:N/A Patient Status: N/A Diet: N/A Pending Orders: N/A Pending Results/Labs:N Pending MD notification:[]N/A Latest Vital Signs: Temperature 98.7 , Pulse 105 , B/P 126 /72 , Respiratory Rate 17 , O2 SAT 100 , Mechanical Ventilator, O2 Flow Rate . Vital Sign Comment: N/A EKG Rhythm: Sinus Rhythm Rhythm change?: N MD Notified?: N MD Response: Latest Hope Fall Score: 35 Fall Risk: Medium Risk Safety Measures: Call light Within Reach, Bed Alarm Zone 1, Side Rails Side Rails x2, Bed position Low and Locked. Fall Precautions: Yellow Socks Yellow Gown Door Sign Patient Fall Education Report given to Renee Guajardo RN.
--- NOTE | 2020-05-26 19:15 | NUR ---
NURSE NOTES: Received report from Tonia Harris, Pt in bed, awake, no signs or symptoms of acute cardiac or respiratory distress noted. On vent -trach with prescribed setting, shiley #8 AC 14 TV 550 FIo2 40% Peep 5. Appears to be saturating @ 99%.ST 106 on potline monitor. Able to make needs known via hand gesture and mouthing words. With G tube running Vital AF @70cc/hr- no residual noted. Vann catheter intact and draining via gravity with color yellow urine , with rectal tube patent, draining via gravity. IV line on R AC #20 patent and flushed well, TKO. Pt has a scaly and dry skin, noted scratching. Aspiration precautions observed- HOB elevated, skin precautions observed. Safety measures in place, bed in lowest positioned and safety brakes engaged, call light within easy reach. Will continue plan of care.
[2020-05-26 20:00] VITALS: BP_SYST 110; BP_SYST 118; BP_DIAS 82
--- NOTE | 2020-05-26 21:00 | NUR ---
NURSE NOTES: Free water flushed adjusted to 250 q6h.
[2020-05-26] MEDS: Epoetin Alfa-EPBX (NON ESRD)10,000 unit/ml vial SUBQ SCH (21:11)
--- NOTE | 2020-05-26 23:12 | Cardiology Progress Note ---
Subjective DATE OF SERVICE: May 26, 2020 No sustained atrial ectopy Remains on vent support. Objective Last 24 Hour Vital Signs Date Time Temp Pulse Resp B/P (MAP) Pulse Ox O2 Delivery O2 Flow Rate FiO2 05/26/20 21:12 103 118/82 05/26/20 21:11 103 118/82 05/26/20 20:00 98.1 103 18 118/82 (94) 100 05/26/20 20:00 40 05/26/20 20:00 Mechanical Ventilator 05/26/20 19:01 99 05/26/20 18:53 105 17 40 05/26/20 16:00 40 05/26/20 16:00 98.7 107 18 126/72 (90) 100 05/26/20 16:00 Mechanical Ventilator 05/26/20 16:00 100 05/26/20 15:05 112 17 40 05/26/20 14:08 109 128/81 05/26/20 12:00 Mechanical Ventilator 05/26/20 12:00 40 05/26/20 12:00 98.2 109 19 128/81 (97) 100 05/26/20 12:00 109 05/26/20 11:05 109 16 100 Mechanical Ventilator 40 05/26/20 11:05 109 16 40 05/26/20 09:30 111 112/66 05/26/20 08:00 105 05/26/20 08:00 40 05/26/20 08:00 Mechanical Ventilator 05/26/20 08:00 97.7 111 16 112/66 (81) 97 05/26/20 07:10 111 16 40 05/26/20 06:16 122 122/70 05/26/20 04:00 Mechanical Ventilator 05/26/20 04:00 99.0 112 16 119/77 (91) 100 05/26/20 04:00 40 05/26/20 04:00 111 05/26/20 03:34 122 17 40 05/26/20 00:00 Mechanical Ventilator 05/26/20 00:00 40 05/26/20 00:00 117 05/26/20 00:00 99.1 113 20 122/70 (87) 100 HEENT: Thick Trach secretions RHYTHM: NSR, Afib LUNGS: bilateral rhonchi CARDIAC: normal rate, regular rhythm, normal S1 and S2, other - ectopic beats ABDOMEN: normal bowel sounds, non tender, soft, hepatomegaly, splenomegaly, G- Tube intact EXTREMITIES: non-tender, no calf tenderness, trace edema Assessment/Plan Assessment/Plan Polymicrobial healthcare associated PNA Vent dep respiratory failure Paroxysmal AFib/SVT Hx breast CA Lymphadenopathy with splenomegaly Dehydration/hypernatremia Hypokalemia Vent support Avoid beta agonist Abx Monitor volume status; free water replacement adjusted Maintain therapeutic K+/Mg++ levels Titrate beta mingo dose Luis Felipe Sorto MD May 26, 2020 23:12
--- NOTE | 2020-05-26 23:41 | General Progress Note ---
Subjective Allergies: Coded Allergies: No Known Allergies (Unverified , 02/09/20) Subjective Above noted no events tolerating feeds stools liquid - via rectal tube Na higher Objective Last 24 Hour Vital Signs Date Time Temp Pulse Resp B/P (MAP) Pulse Ox O2 Delivery O2 Flow Rate FiO2 05/26/20 23:04 112 19 40 05/26/20 21:12 103 118/82 05/26/20 21:11 103 118/82 05/26/20 20:00 98.1 103 18 118/82 (94) 100 05/26/20 20:00 40 05/26/20 20:00 Mechanical Ventilator 05/26/20 19:01 99 05/26/20 18:53 105 17 40 05/26/20 16:00 40 05/26/20 16:00 98.7 107 18 126/72 (90) 100 05/26/20 16:00 Mechanical Ventilator 05/26/20 16:00 100 05/26/20 15:05 112 17 40 05/26/20 14:08 109 128/81 05/26/20 12:00 Mechanical Ventilator 05/26/20 12:00 40 05/26/20 12:00 98.2 109 19 128/81 (97) 100 05/26/20 12:00 109 05/26/20 11:05 109 16 100 Mechanical Ventilator 40 05/26/20 11:05 109 16 40 05/26/20 09:30 111 112/66 05/26/20 08:00 105 05/26/20 08:00 40 05/26/20 08:00 Mechanical Ventilator 05/26/20 08:00 97.7 111 16 112/66 (81) 97 05/26/20 07:10 111 16 40 05/26/20 06:16 122 122/70 05/26/20 04:00 Mechanical Ventilator 05/26/20 04:00 99.0 112 16 119/77 (91) 100 05/26/20 04:00 40 05/26/20 04:00 111 05/26/20 03:34 122 17 40 05/26/20 00:00 Mechanical Ventilator 05/26/20 00:00 40 05/26/20 00:00 117 05/26/20 00:00 99.1 113 20 122/70 (87) 100 Intake and Output 05/25/20 05/26/20 19:00 07:00 Intake Total 1055 ml 900 ml Output Total 650 ml 650 ml Balance 405 ml 250 ml Intake Free Water 230 ml 200 ml IV Total 55 ml Tube Feeding 770 ml 700 ml Output Urine Total 650 ml 650 ml Height (Feet): 5 Height (Inches): 2.00 Weight (Pounds): 125 Objective Thin woman in JAMES no distress (+) diffuse skin disease NCAT neck supple , (+) Trach CTA RR abd soft NT ND, GT no edema Assessment/Plan Assessment/Plan: Assessment - Anemia, but with brown OB (+) stools - Diarrhea, small volume - C Diff (-) , ? tube feed related - H&H stable - Fever, PNA - Respiratory failure - Dysphagia / GT - h/o BRCA - skin disorder - lymphadenopathy on CT - liver / renal lesions on CT - infectious vs malignant - free water deficit Recommendations - transfuse PRN - Vital AF trial - follow stool output - conservative f/u per discussion with son - PPI - monitor labs - abx per ID - Onc f/u - repeat CT imaging later this week - increase free water via GT Priti Sequeira MD May 26, 2020 23:41
[2020-05-26] MEDS: 1/2NS w/KCl 20mEq 1000ml 1,000 ML IV SCH (23:47)
[2020-05-27] VITALS: BP 100/59
--- NOTE | 2020-05-27 | NUR ---
NURSE NOTES: Pt sleeping comfortably in bed. In no apparent cardiac and respiratory distress. Will continue to monitor
[2020-05-27 04:00] VITALS: BP 112/67
--- NOTE | 2020-05-27 04:00 | NUR ---
NURSE NOTES: Sponge bath given, oral care provided. Wound dressings changed.Turned and reposition pt. Will continue to monitor
[2020-05-27] MEDS: dilTIAZem HCl 30mg tab GT SCH ×3 (05:54→22:34)
[2020-05-27] MEDS: Meropenem 1 GM in NS 55 ML IVPB SCH (06:00)
--- NOTE | 2020-05-27 06:44 | Hematology/Onc Progress Note ---
Assessment/Plan Assessment/Plan Assessment and Recs # Breast cancer, stage IV, on chemotherapy as outpatient --> obtain further records, order placed-->last chemo was march 2019, s/p 5 cycles --> katie explain lymphadenopathy as seen on ct --> Ct repeated with contrast shows no significant lad # Pancytopenia is due to recent chemo and infection --> imaging has been reviewed, does have splenomegaly --> hep and hiv are neg --> imaging abd reviewed --> hgb 9.7 --> EPOGEN started --> sp transfusion prbc # Pneumonia with b/l infiltrates --> s/p abx meropenem --> per ID # Resp failure s/p trach/vent # Dysphagia s/p peg # Splenomegaly. 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 Appreciate consultation and jelly Randall/Md Subjective Allergies: Coded Allergies: No Known Allergies (Unverified , 02/09/20) All Systems: reviewed and negative except above Subjective 05/22 on bipap, desaturates overnight, no bleeding, smear reviewed 05/23 is awake, with itching, meds noted, no bleeding, jelly randall 05/25 labs are reviewed, meds noted, no major changes, hgb 9.7 05/26 itching, scratching and on mech vent, no bleeding 05/27 on trach/vent, gtube, with foely, labs noted, no bleeding Objective Objective Current Medications Medications (Trade) Dose Ordered Sig/Lucy Route PRN Reason Start Time Stop Time Status Last Admin Dose Admin Acetaminophen (Tylenol) 650 mg Q4H PRN GT Mild Pain, Temp >100.5 05/16/20 17:45 06/15/20 17:44 05/25/20 22:07 Al Hydroxide/Mg Hydroxide (Mylanta) 30 ml Q4H PRN GT Abdominal cramps 05/16/20 17:45 06/15/20 17:44 Ascorbic Acid (Vitamin C) 500 mg DAILY GT 05/17/20 09:00 06/16/20 08:59 05/26/20 09:30 Clonidine HCl (Catapres Tab) 0.1 mg Q6H PRN GT SBP>160 or DBP>90 05/16/20 19:45 08/14/20 19:44 Diltiazem HCl (Cardizem Tab) 30 mg EVERY 8 HOURS GT 05/16/20 22:00 06/15/20 21:59 05/27/20 05:54 Diphenhydramine HCl (Benadryl) 25 mg Q6H PRN NG Itching 05/16/20 21:45 06/15/20 21:44 05/25/20 22:07 Epoetin Liam (Epoetin Liam-EPBX(NON ESRD)) 10,000 unit TUE- SUBQ 05/16/20 21:00 08/14/20 20:59 05/26/20 21:11 Famotidine (Pepcid) 20 mg BID GT 05/17/20 09:00 08/15/20 08:59 05/26/20 17:58 Levothyroxine Sodium (Synthroid) 100 mcg DAILY@0630 GT 05/17/20 06:30 06/16/20 06:29 05/27/20 05:54 Meropenem 1 gm/ Sodium Chloride 55 ml @ 110 mls/hr Q8HR IVPB 05/22/20 13:00 05/27/20 12:59 05/27/20 06:00 Metoprolol Tartrate (Lopressor) 12.5 mg Q12HR GT 05/16/20 21:00 08/14/20 20:59 05/26/20 21:11 Multivitamins (Multivitamins W/ Minerals 15ml Liquid) 15 ml DAILY GT 05/17/20 09:00 06/16/20 08:59 05/26/20 09:30 Sodium 1,000 ml @ 75 mls/hr [id number] IV 05/26/20 23:30 06/25/20 23:29 05/26/20 23:47 Zinc Sulfate (Zinc Sulfate) 220 mg DAILY GT 05/17/20 09:00 08/15/20 08:59 05/26/20 09:30 Last 24 Hour Vital Signs Date Time Temp Pulse Resp B/P (MAP) Pulse Ox O2 Delivery O2 Flow Rate FiO2 05/27/20 05:54 123 112/67 05/27/20 04:00 Mechanical Ventilator 05/27/20 04:00 98.2 123 22 112/67 (82) 100 05/27/20 04:00 40 05/27/20 03:18 114 05/27/20 03:14 116 22 40 05/27/20 00:12 110 05/27/20 00:00 Mechanical Ventilator 05/27/20 00:00 96.8 110 18 100/59 (73) 100 05/26/20 23:04 112 19 40 05/26/20 21:12 103 118/82 05/26/20 21:11 103 118/82 05/26/20 20:00 98.1 103 18 118/82 (94) 100 05/26/20 20:00 40 05/26/20 20:00 Mechanical Ventilator 05/26/20 19:01 99 05/26/20 18:53 105 17 40 05/26/20 16:00 40 05/26/20 16:00 98.7 107 18 126/72 (90) 100 05/26/20 16:00 Mechanical Ventilator 05/26/20 16:00 100 05/26/20 15:05 112 17 40 05/26/20 14:08 109 128/81 05/26/20 12:00 Mechanical Ventilator 05/26/20 12:00 40 05/26/20 12:00 98.2 109 19 128/81 (97) 100 05/26/20 12:00 109 05/26/20 11:05 109 16 100 Mechanical Ventilator 40 05/26/20 11:05 109 16 40 05/26/20 09:30 111 112/66 05/26/20 08:00 105 05/26/20 08:00 40 05/26/20 08:00 Mechanical Ventilator 05/26/20 08:00 97.7 111 16 112/66 (81) 97 05/26/20 07:10 111 16 40 05/26/20 06:16 122 122/70 05/26/20 04:00 Mechanical Ventilator 05/26/20 04:00 99.0 112 16 119/77 (91) 100 05/26/20 04:00 40 05/26/20 04:00 111 05/26/20 03:34 122 17 40 05/26/20 00:00 Mechanical Ventilator 05/26/20 00:00 40 05/26/20 00:00 117 05/26/20 00:00 99.1 113 20 122/70 (87) 100 05/25/20 22:45 109 17 40 05/25/20 21:25 111 113/94 05/25/20 21:00 111 113/94 05/25/20 20:00 100.3 111 20 113/94 (100) 100 05/25/20 20:00 Mechanical Ventilator 05/25/20 20:00 100 05/25/20 20:00 40 05/25/20 19:28 114 20 40 05/25/20 16:00 40 05/25/20 16:00 99.5 98 20 105/73 (84) 100 05/25/20 16:00 117 05/25/20 16:00 Mechanical Ventilator 05/25/20 15:03 105 17 50 05/25/20 13:29 105 109/71 05/25/20 12:00 40 05/25/20 12:00 Mechanical Ventilator 05/25/20 12:00 109 05/25/20 12:00 98.1 69 29 106/80 (89) 100 05/25/20 11:03 68 19 50 05/25/20 09:00 109 119/69 05/25/20 08:00 Mechanical Ventilator 05/25/20 08:00 116 05/25/20 08:00 40 05/25/20 08:00 98.9 109 20 119/69 (86) 100 05/25/20 07:07 107 18 50 Intake and Output 05/26/20 05/27/20 19:00 07:00 Intake Total 930 ml 1105 ml Output Total 700 ml Balance 230 ml 1105 ml Intake Free Water 200 ml 350 ml IV Total 55 ml Tube Feeding 490 ml 700 ml Other 240 ml Output Urine Total 700 ml Height (Feet): 5 Height (Inches): 2.00 Weight (Pounds): 125 Objective PE General: Awake and alert, nad HEENT: NC/AT. EOMI. Neck: Tracheostomy in place./ vent++ Cardiovascular: Tachycardic. S1 and S2 normal. Resp: Vent dependent through tracheostomy. Abdomen: Abdomen is soft, nondistended. G-tube++ Skin: Diffuse hypopigmentation over the skin. Patient is itchy MSK: Normal tone and bulk. Moving all extremities. Neuro: Awake and alert. Mentating appropriately. Toby Mauricio MD May 27, 2020 06:44
--- NOTE | 2020-05-27 07:15 | NUR ---
NURSE NOTES: Received report from MAGI Lewis. Pt in bed, awake no signs of respiratory or cardiac distress noted. On vent-trach with the following settings, Shiley 8, AC 14, TV 550, FIO2 40%, PEEP 5. Saturating at 100%. ST with HR 121. GTF intact and patent running Vital AF 70ml/hr. Vann catheter and rectal tube intact and draining to gravity. IV line R AC 20G patent and intact. Aspiration and fall precautions noted. Bed in lowest position, call light within reach, HOB elevated. Will continue to monitor. Will continue plan of care.
--- NOTE | 2020-05-27 07:22 | Pulmonology Progress Note ---
Subjective ROS Limited/Unobtainable: Yes Constitutional: Reports: fever, other - Kj=[id number] Allergies: Coded Allergies: No Known Allergies (Unverified , 02/09/20) All Systems: reviewed and negative except above Subjective care noted anemic tachycardic elevated CRP ++ lymphadenopathy Objective Last 24 Hour Vital Signs Date Time Temp Pulse Resp B/P (MAP) Pulse Ox O2 Delivery O2 Flow Rate FiO2 05/27/20 05:54 123 112/67 05/27/20 04:00 Mechanical Ventilator 05/27/20 04:00 98.2 123 22 112/67 (82) 100 05/27/20 04:00 40 05/27/20 03:18 114 05/27/20 03:14 116 22 40 05/27/20 00:12 110 05/27/20 00:00 Mechanical Ventilator 05/27/20 00:00 96.8 110 18 100/59 (73) 100 05/26/20 23:04 112 19 40 05/26/20 21:12 103 118/82 05/26/20 21:11 103 118/82 05/26/20 20:00 98.1 103 18 118/82 (94) 100 05/26/20 20:00 40 05/26/20 20:00 Mechanical Ventilator 05/26/20 19:01 99 05/26/20 18:53 105 17 40 05/26/20 16:00 40 05/26/20 16:00 98.7 107 18 126/72 (90) 100 05/26/20 16:00 Mechanical Ventilator 05/26/20 16:00 100 05/26/20 15:05 112 17 40 05/26/20 14:08 109 128/81 05/26/20 12:00 Mechanical Ventilator 05/26/20 12:00 40 05/26/20 12:00 98.2 109 19 128/81 (97) 100 05/26/20 12:00 109 05/26/20 11:05 109 16 100 Mechanical Ventilator 40 05/26/20 11:05 109 16 40 05/26/20 09:30 111 112/66 05/26/20 08:00 105 05/26/20 08:00 40 05/26/20 08:00 Mechanical Ventilator 05/26/20 08:00 97.7 111 16 112/66 (81) 97 Intake and Output 05/26/20 05/27/20 19:00 07:00 Intake Total 930 ml 1105 ml Output Total 700 ml Balance 230 ml 1105 ml Intake Free Water 200 ml 350 ml IV Total 55 ml Tube Feeding 490 ml 700 ml Other 240 ml Output Urine Total 700 ml Objective WDWN NAD trach reduced breath sounds bilaterally without rhonchi or wheeze [id number] tachy without MRG NABS nontender Gt no CCE nonfocal Current Medications Medications (Trade) Dose Ordered Sig/Lucy Route PRN Reason Start Time Stop Time Status Last Admin Dose Admin Acetaminophen (Tylenol) 650 mg Q4H PRN GT Mild Pain, Temp >100.5 05/16/20 17:45 06/15/20 17:44 05/25/20 22:07 Al Hydroxide/Mg Hydroxide (Mylanta) 30 ml Q4H PRN GT Abdominal cramps 05/16/20 17:45 06/15/20 17:44 Ascorbic Acid (Vitamin C) 500 mg DAILY GT 05/17/20 09:00 06/16/20 08:59 05/26/20 09:30 Clonidine HCl (Catapres Tab) 0.1 mg Q6H PRN GT SBP>160 or DBP>90 05/16/20 19:45 08/14/20 19:44 Diltiazem HCl (Cardizem Tab) 30 mg EVERY 8 HOURS GT 05/16/20 22:00 06/15/20 21:59 05/27/20 05:54 Diphenhydramine HCl (Benadryl) 25 mg Q6H PRN NG Itching 05/16/20 21:45 06/15/20 21:44 05/25/20 22:07 Epoetin Liam (Epoetin Liam-EPBX(NON ESRD)) 10,000 unit TUE-TUE-TUE SUBQ 05/16/20 21:00 08/14/20 20:59 05/26/20 21:11 Famotidine (Pepcid) 20 mg BID GT 05/17/20 09:00 08/15/20 08:59 05/26/20 17:58 Levothyroxine Sodium (Synthroid) 100 mcg DAILY@0630 GT 05/17/20 06:30 06/16/20 06:29 05/27/20 05:54 Meropenem 1 gm/ Sodium Chloride 55 ml @ 110 mls/hr Q8HR IVPB 05/22/20 13:00 05/27/20 12:59 05/27/20 06:00 Metoprolol Tartrate (Lopressor) 12.5 mg Q12HR GT 05/16/20 21:00 08/14/20 20:59 05/26/20 21:11 Multivitamins (Multivitamins W/ Minerals 15ml Liquid) 15 ml DAILY GT 05/17/20 09:00 06/16/20 08:59 05/26/20 09:30 Sodium 1,000 ml @ 75 mls/hr [id number] IV 05/26/20 23:30 06/25/20 23:29 05/26/20 23:47 Zinc Sulfate (Zinc Sulfate) 220 mg DAILY GT 05/17/20 09:00 08/15/20 08:59 05/26/20 09:30 Assessment/Plan Assessment/Plan Anemia, status post blood transfusion history of UTI Chronic respiratory failure , ventilator dependent with tracheostomy status Dysphagia, feeding by G-tube History of sepsis Decubitus skin ulcer present on admission Chronic dermatitis Hypotension pericardial effusion small elevated CRP pulmonary hypertension ++lymphadenopathy splenomegaly liver lesion Breast cancer PLAN heme/onc noted nutrition care reviewed vent support rate controlled complete antibiotics update family once further evaluate by oncology dc planning prognosis overall poor impression, plan, and exam edited and reviewed in detail care discussed with Stevenson Emerson MD May 27, 2020 07:22
--- NOTE | 2020-05-27 07:32 | NUR ---
NURSE HAND-OFF REPORT: Important Events on Shift:STable Patient Status: Stable Diet: Vital AF 1.2 Pending Orders: Pending Results/Labs: Pending MD notification: Latest Vital Signs: Temperature 98.2 , Pulse 123 , B/P 112 /67 , Respiratory Rate 22 , O2 SAT 100 , Mechanical Ventilator, O2 Flow Rate . Vital Sign Comment: Stable EKG Rhythm: Sinus Tachycardia Rhythm change?: N MD Notified?: MD Response: Latest Hope Fall Score: 35 Fall Risk: Medium Risk Safety Measures: Call light Within Reach, Bed Alarm Zone 1, Side Rails Side Rails x2, Bed position Low and Locked. Fall Precautions: Yellow Socks Yellow Gown Door Sign Patient Fall Education Report given to MAGI Harris.
[2020-05-27 07:46] VITALS: BP 114/74
[2020-05-27] MEDS: Zinc Sulfate 220mg GT SCH (08:34)
[2020-05-27] MEDS: Multivitamins W/Minerals 15 ML UDC GT SCH (08:35)
[2020-05-27] MEDS: Ascorbic Acid 500mg tab GT SCH (08:36)
[2020-05-27] MEDS: Metoprolol Tartrate 12.5mg TAB GT SCH ×2 (08:36→20:34)
--- NOTE | 2020-05-27 09:45 | NUR ---
NURSE NOTES: Patient is awake, showing no signs of respiratory or cardiac distress. Turned and repositioned. Partial bath given. Oral care done, suctioned PRN. Will continue to monitor. Will continue plan of care.
--- NOTE | 2020-05-27 11:09 | Infectious Diseases Prog Note ---
Assessment/Plan Assessment/Plan antibiotics : meropenem A 1. acenitobacter, proteus, pseudomonas pneumonia COVID 19 negative 2. breast cancer 3. respiratory failure s/p tracheostomy 4. ? 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 continue meropenem 1 more day 2. will follow up cultures Subjective ROS Limited/Unobtainable: Yes Allergies: Coded Allergies: No Known Allergies (Unverified , 02/09/20) Objective Last 24 Hour Vital Signs Date Time Temp Pulse Resp B/P (MAP) Pulse Ox O2 Delivery O2 Flow Rate FiO2 05/27/20 08:36 121 114/74 05/27/20 08:00 40 05/27/20 08:00 Mechanical Ventilator 05/27/20 07:50 113 05/27/20 07:46 97.2 121 22 114/74 (87) 100 05/27/20 05:54 123 112/67 05/27/20 04:00 Mechanical Ventilator 05/27/20 04:00 98.2 123 22 112/67 (82) 100 05/27/20 04:00 40 05/27/20 03:18 114 05/27/20 03:14 116 22 40 05/27/20 00:12 110 05/27/20 00:00 Mechanical Ventilator 05/27/20 00:00 96.8 110 18 100/59 (73) 100 05/26/20 23:04 112 19 40 05/26/20 21:12 103 118/82 05/26/20 21:11 103 118/82 05/26/20 20:00 98.1 103 18 118/82 (94) 100 05/26/20 20:00 40 05/26/20 20:00 Mechanical Ventilator 05/26/20 19:01 99 05/26/20 18:53 105 17 40 05/26/20 16:00 40 05/26/20 16:00 98.7 107 18 126/72 (90) 100 05/26/20 16:00 Mechanical Ventilator 05/26/20 16:00 100 05/26/20 15:05 112 17 40 05/26/20 14:08 109 128/81 05/26/20 12:00 Mechanical Ventilator 05/26/20 12:00 40 05/26/20 12:00 98.2 109 19 128/81 (97) 100 05/26/20 12:00 109 Height (Feet): 5 Height (Inches): 2.00 Weight (Pounds): 125 HEENT: status post trach Respiratory/Chest: lungs clear Cardiovascular: normal rate, regular rhythm, no gallop/murmur Abdomen: soft, non tender, other - GT Extremities: no edema Current Medications Medications (Trade) Dose Ordered Sig/Lucy Route PRN Reason Start Time Stop Time Status Last Admin Dose Admin Acetaminophen (Tylenol) 650 mg Q4H PRN GT Mild Pain, Temp >100.5 05/16/20 17:45 06/15/20 17:44 05/25/20 22:07 Al Hydroxide/Mg Hydroxide (Mylanta) 30 ml Q4H PRN GT Abdominal cramps 05/16/20 17:45 06/15/20 17:44 Ascorbic Acid (Vitamin C) 500 mg DAILY GT 05/17/20 09:00 06/16/20 08:59 05/27/20 08:36 Clonidine HCl (Catapres Tab) 0.1 mg Q6H PRN GT SBP>160 or DBP>90 05/16/20 19:45 08/14/20 19:44 Diltiazem HCl (Cardizem Tab) 30 mg EVERY 8 HOURS GT 05/16/20 22:00 06/15/20 21:59 05/27/20 05:54 Diphenhydramine HCl (Benadryl) 25 mg Q6H PRN NG Itching 05/16/20 21:45 06/15/20 21:44 05/25/20 22:07 Epoetin Liam (Epoetin Liam-EPBX(NON ESRD)) 10,000 unit TUE-TUE-TUE SUBQ 05/16/20 21:00 08/14/20 20:59 05/26/20 21:11 Famotidine (Pepcid) 20 mg BID GT 05/17/20 09:00 08/15/20 08:59 05/27/20 08:34 Levothyroxine Sodium (Synthroid) 100 mcg DAILY@0630 GT 05/17/20 06:30 06/16/20 06:29 05/27/20 05:54 Meropenem 1 gm/ Sodium Chloride 55 ml @ 110 mls/hr Q8HR IVPB 05/22/20 13:00 05/27/20 12:59 05/27/20 06:00 Metoprolol Tartrate (Lopressor) 12.5 mg Q12HR GT 05/16/20 21:00 08/14/20 20:59 05/27/20 08:36 Multivitamins (Multivitamins W/ Minerals 15ml Liquid) 15 ml DAILY GT 05/17/20 09:00 06/16/20 08:59 05/27/20 08:35 Sodium 1,000 ml @ 75 mls/hr [id number] IV 05/26/20 23:30 06/25/20 23:29 05/26/20 23:47 Zinc Sulfate (Zinc Sulfate) 220 mg DAILY GT 05/17/20 09:00 08/15/20 08:59 05/27/20 08:34 Hong Camacho MD May 27, 2020 11:09
[2020-05-27 12:00] VITALS: BP 106/72
--- NOTE | 2020-05-27 12:00 | NUR ---
NURSE NOTES: VS stable. Turned and repositioned patient. HOB elevated. Tolerating vent settings well. Suctioned PRN. Will continue to monitor..
[2020-05-27] MEDS: 1/2NS w/KCl 20mEq 1000ml 1,000 ML IV SCH (12:50)
--- NOTE | 2020-05-27 13:19 | NUR ---
CASE MANAGEMENT:REVIEW 05/27/20 SI: BILATERAL PNA. ANEMIA TRACH/VENT/GTUBE. PERSISTENT TACHYCARDIA 120'S 97.2 121 22 114/74 100% ON VENT SUPPORT W/40% FIO2 IS: IV MEROPENEM Q8HRS IVF@75/HR CARDIZEM GT Q8HR LOPRESSOR GT Q12 : STEP DOWN UNIT DCP: FROM [facility]
--- NOTE | 2020-05-27 15:56 | Surgery Progress Note ---
Surgery Progress Note Subjective Symptoms: improved, tolerating diet, voiding well, passing flatus Objective Last 24 Hour Vital Signs Date Time Temp Pulse Resp B/P (MAP) Pulse Ox O2 Delivery O2 Flow Rate FiO2 05/27/20 14:00 105 101/59 05/27/20 12:00 91 05/27/20 12:00 97.3 95 20 106/72 (83) 100 05/27/20 12:00 40 05/27/20 12:00 Mechanical Ventilator 05/27/20 10:58 64 17 40 05/27/20 08:36 121 114/74 05/27/20 08:00 40 05/27/20 08:00 Mechanical Ventilator 05/27/20 07:50 113 05/27/20 07:46 97.2 121 22 114/74 (87) 100 05/27/20 07:16 65 21 40 05/27/20 05:54 123 112/67 05/27/20 04:00 Mechanical Ventilator 05/27/20 04:00 98.2 123 22 112/67 (82) 100 05/27/20 04:00 40 05/27/20 03:18 114 05/27/20 03:14 116 22 40 05/27/20 00:12 110 05/27/20 00:00 Mechanical Ventilator 05/27/20 00:00 96.8 110 18 100/59 (73) 100 05/26/20 23:04 112 19 40 05/26/20 21:12 103 118/82 05/26/20 21:11 103 118/82 05/26/20 20:00 98.1 103 18 118/82 (94) 100 05/26/20 20:00 40 05/26/20 20:00 Mechanical Ventilator 05/26/20 19:01 99 05/26/20 18:53 105 17 40 05/26/20 16:00 40 05/26/20 16:00 98.7 107 18 126/72 (90) 100 05/26/20 16:00 Mechanical Ventilator 05/26/20 16:00 100 I&O Intake and Output 05/26/20 05/27/20 19:00 07:00 Intake Total 930 ml 1180 ml Output Total 700 ml Balance 230 ml 1180 ml Intake Free Water 200 ml 350 ml IV Total 130 ml Tube Feeding 490 ml 700 ml Other 240 ml Output Urine Total 700 ml Dressing: dry Wound: clean Cardiovascular: RSR Respiratory: decreased breath sounds Abdomen: non-tender, present bowel sounds Extremities: no edema, no tenderness, no cyanosis Plan Problems: (1) Pneumonia (2) Symptomatic anemia (3) Decubitus skin ulcer Assessment & Plan: Pt presented on admission with Pressure Injuries, Tracheostomy,Alopecia, Generalized Hypopigmented Skin plaques. Few plaques noted to be open lesions but are pink and dry. Skin assessed under collar of trach and no areas of skin breakdown noted. Full thickness Pressure injury noted to R Buttocks(L)5.7cm x (W)1.7cm x (D)0.3cm. Base of wound is 90% beefy-red,10% slough. Borders are macerated . surrounding dry skin with hypopigmented plaques. Full thickness Pressure injury L Buttocks(L)4.6cm x (W)4.5cm. Base of wound has clusters wounds with intertwining bridges. Wounds have mixed slough and jack appearances. Small amt serous exudate noted. Surrounding dry hypopigmented skin plaques. Proximally and in close proximity skin is denuded. Small pustule with surrounding erythema noted L Hallux(L)0.5cm x (W)0.6cm. NO changes in skin temp periwound. An area of hyperpigmentation from previous wound noted to medial/posterior R Heel. L Heel is otherwise boggy with non-blanching erythema. Reabsorbed DTPI L Heel(L)2.2cm x (W)2cm. Dry brown eschar at base of wound. NO erythema or fluctuance periwound. Unstageable Pressure injury L lateral Malleolus(L)0.7cm x (W)0.9cm. Base of wound has 100% slough.edges dry and adherent to base of wound. No erythema,induration,or fluctuance periwound. Tx.Plan: Cleanse wounds R and L Buttocks with Saline. Apply Therahoney to wounds. Apply Moisture Barrier Paste Periwound. Cover with Optifoam drsg Daily and prn. Apply Betadine to wound R Hallux. Cover with Optifoam drsg every 3 days and prn. Apply Betadine to L lateral Malleolus. Cover with Optifoam drsg. Change every 3 days and prn. Apply Cavilon Skin Barrier to both heels. Cover each heel with Optifoam drsg. Change every 7 days and prn. Apply moisture barrier paste to R and L Buttocks. Cover with Optiform dressing Q3 days and prn. Apply Cavilon skin barrier both heels cover each with Optiform dressing change Q 7 days and prn. Apply Phytoplex antifungal lotion for itching three times/day Reposition at least every 2hours or as tolerated. Off-load heels with pillow. APM/ELIDIA Mattress overlay. DAILY ESTIMATED NEEDS: Needs based on Wound, critical care, wt loss, DRIVE IN WAITER/WAITRESS TF/ 52kg 25-35 kcals/kg 1100-1299 total kcals 1.25-2 g protein/kg 65-104 g total protein 25-30 mL/kg 3871-1310 total fluid mLs NUTRITION DIAGNOSIS: Increased kcal and pro needs r/t wound healing as evidenced by admitted w/ wounds @ BL buttocks, pending eval, suspected significant wt loss of 17lbs/10.5% in <3 months. CURRENT TF:Glucerna 1.5 @ 60ml/hr x 20 hrs ENTERAL NUTRITION RECOMMENDATIONS: Glucerna 1.5 @ 50ml/hr x 24 hrs to provide 1200ml, 1800 kcal, 99g pro, 911ml free H2O - Rec 24 hour continuous TF to prevent hypoglycemia - Rec goal rate of 50ml/hr x 24 hrs - Flush per MD. HOB over 30 degrees ADDITIONAL RECOMMENDATIONS: 1) Wound care: add GT BID, continue Vit C and ZnSO4 2) Per SNF: 61 inches (5'1") and wt= 145lbs (05/02/20) -> daily calibrated bedscale wt 3) Monitor BGs, need for NISS- h/o DM 4) Monitor lytes, replete as needed (4) Lymphadenopathy Assessment & Plan: Chest: Lungs diffusely demonstrate a mixture of mosaic attenuation and groundglass opacity with an upper lobe predominance, interspersed with areas of denser consolidation in a patchy distribution, the latter with a lower lobe predominance. There is also some interstitial septal thickening. There are bilateral pleural effusions. The heart is enlarged. There is a small pericardial effusion. There is bilateral hilar and mediastinal lymphadenopathy, with numerous enlarged mediastinal lymph nodes measuring up to 2 cm long axis dimension. There is also bilateral axillary adenopathy, with some infiltration of the axillary fat on the left. There is a tracheostomy. The thyroid is atrophic. The bones are unremarkable. When compared to the previous exam, there is considerably less pleural fluid. There is also less dense parenchymal consolidation. Background groundglass opacity is similar, however. The cardiomegaly and pericardial fluid were previously evident. The mediastinal lymphadenopathy is a new finding. The axillary nodes have also increased in size. There is much less edema of the subcutaneous fat Abdomen pelvis: There is a gastrostomy. Stomach and duodenum are otherwise unremarkable. The appendix is normal. No evidence of diverticulosis or diverticulitis. There is a small amount of free intraperitoneal fluid, predominantly in the pelvis. This is somewhat high in attenuation, measuring up to 21 Hounsfield units. No small bowel distention. No free intraperitoneal gas. There is a rectal tube in place. The lack of IV contrast limits assessment of the solid organs. The liver demonstrates a low-attenuation lesion in segment 6 which demonstrates nonspecific soft tissue attenuation, is ill-defined but measures approximately 2 cm in diameter. The liver is also enlarged. Patient is status post cholecystectomy. No biliary ductal dilatation. The pancreas is unremarkable. Spleen is mildly enlarged, measuring up to 13.5 cm long axis dimension. The adrenals and kidneys are unremarkable. There are prominent but not frankly enlarged retroperitoneal nodes. No pelvic mass or adenopathy. The uterus and adnexal structures are unremarkable. There is a Vann catheter in place. Small amount of air within the bladder presumably is related to the Vann catheterization. There is mild diffuse edema of the subcutaneous fat. The bones are unremarkable. IMPRESSION: Mediastinal and bilateral hilar lymphadenopathy. This is a new finding since previous study of 02/18/2020. This could indicate inflammatory lymphadenopathy, metastatic lymphadenopathy, or lymphoproliferative disorder. Splenomegaly. This is also probably new since the previous 02/18/2020 exam, although the spleen was incompletely included on that study Bilateral parenchymal opacities, as described. Most likely on the basis of pulmonary edema, although pneumonia also possible. This is less severe than on the previou s study Low-attenuation right lobe liver lesion. This could represent primary neoplasm, metastatic neoplasm, benign hemangioma, among other possibilities. Consider further evaluation with multiphasic contrast enhanced CT Bilateral pleural effusions, much decreased since the previous exam Tracheostomy Diffuse edema of the subcutaneous fat, improved since 02/18/2020 Free intraperitoneal fluid. High attenuation of this indicates that it could be bloody Rectal tube Gastrostomy Vann catheter (5) Liver mass Assessment & Plan: noted on CT pending repeat CT with contrast - noted ? infection vs abscess? ?mets? Abnormal right kidney, with areas of low attenuation as described likely representing areas of nephritis. There is a complex lesion coming off the lower pole of the right kidney. This could represent a renal neoplasm, but findings are somewhat suspicious for a small abscess. Hepatic abnormality described previously is demonstrated to have mostly low attenuation with some rim enhancement. As this is contiguous with an area of apparent inflammatory change in the right kidney, this could represent a small liver abscess secondary to hepatic invasion of renal infection. This could also represent a complex cyst or an infected cyst. Given the contiguity to the right kidney, it is also possible but less likely that this represents an exophytic renal abscess indenting the liver. Abnormal low-attenuation areas in the left kidney likewise are suspicious for areas of multifocal nephritis. There is a complex low-attenuation lesion with rim enhancement and septation. This could represent a complicated cyst or could represent a small renal abscess. Cystic neoplasm also possible although less likely. Sonography may be useful to better characterize if clinically indicated. Bilateral basilar pulmonary parenchymal infiltrates, likely pneumonia or pulmonary edema secondary to congestive heart failure Trace left pleural effusion also noted Hepatomegaly Thyromegaly Ascites fluid Rectal tube and gastrostomy noted. Cardiomegaly Zia Chung May 27, 2020 15:56
[2020-05-27 16:00] VITALS: BP 123/81
--- NOTE | 2020-05-27 16:00 | NUR ---
NURSE NOTES: Pt pulled out IV to RAC ,refused IV reinsertion,becomes physically violent .
--- NOTE | 2020-05-27 18:00 | NUR ---
NURSE NOTES: Pt stable no resp distress presented during the shift,pulled up and repositioned for comfort,pt always scratching,skin very dry and scaly.
--- NOTE | 2020-05-27 19:10 | NUR ---
NURSE NOTES: Received report from MAGI Harris. PT awake in bed, afebrile and has no respiratory distress noted.Vent to trache shiley 8, AC 14, Tidal volume 550, Fi O2 40%, Peep 5 saturating 100%. On vital af 1.2 at 70cc/hr via GT. with left FA 20g IV line patent, intact, asymptomatic. With FC to urine bag draining brooke yellow urine. With rectal tube in place intact and draining well. Needs were attended. Bed rails are up and wheels are locked. Continue plan of care.
--- NOTE | 2020-05-27 19:55 | NUR ---
NURSE HAND-OFF REPORT: Important Events on Shift:N/A Patient Status: N/A Diet: N/A Pending Orders: N/A Pending Results/Labs:N/A Pending MD notification: Latest Vital Signs: Temperature 97.0 , Pulse 101 , B/P 123 /81 , Respiratory Rate 18 , O2 SAT 100 , Mechanical Ventilator, O2 Flow Rate . Vital Sign Comment: stable EKG Rhythm: Sinus Tachycardia Rhythm change?: N MD Notified?: MD Response: Latest Hope Fall Score: 35 Fall Risk: Medium Risk Safety Measures: Call light Within Reach, Bed Alarm Zone 1, Side Rails Side Rails x2, Bed position Low and Locked. Fall Precautions: Yellow Socks Yellow Gown Door Sign Patient Fall Education Report given to .MARY Ferrara RN.
[2020-05-27 20:00] VITALS: BP 100/60
--- NOTE | 2020-05-27 21:06 | General Progress Note ---
Subjective Allergies: Coded Allergies: No Known Allergies (Unverified , 02/09/20) Subjective Above noted no events tolerating feeds stools liquid - via rectal tube Objective Last 24 Hour Vital Signs Date Time Temp Pulse Resp B/P (MAP) Pulse Ox O2 Delivery O2 Flow Rate FiO2 05/27/20 20:34 99 100/60 05/27/20 20:00 Mechanical Ventilator 05/27/20 20:00 99.5 99 19 100/60 (73) 100 05/27/20 20:00 40 05/27/20 19:19 101 18 40 05/27/20 16:00 Mechanical Ventilator 05/27/20 16:00 105 05/27/20 16:00 40 05/27/20 16:00 97.0 110 19 123/81 (95) 100 05/27/20 14:55 105 15 40 05/27/20 14:00 105 101/59 05/27/20 12:00 91 05/27/20 12:00 97.3 95 20 106/72 (83) 100 05/27/20 12:00 40 05/27/20 12:00 Mechanical Ventilator 05/27/20 10:58 64 17 40 05/27/20 08:36 121 114/74 05/27/20 08:00 40 05/27/20 08:00 Mechanical Ventilator 05/27/20 07:50 113 05/27/20 07:46 97.2 121 22 114/74 (87) 100 05/27/20 07:16 65 21 40 05/27/20 05:54 123 112/67 05/27/20 04:00 Mechanical Ventilator 05/27/20 04:00 98.2 123 22 112/67 (82) 100 05/27/20 04:00 40 05/27/20 03:18 114 05/27/20 03:14 116 22 40 05/27/20 00:12 110 05/27/20 00:00 Mechanical Ventilator 05/27/20 00:00 96.8 110 18 100/59 (73) 100 05/26/20 23:04 112 19 40 05/26/20 21:12 103 118/82 05/26/20 21:11 103 118/82 Intake and Output 05/26/20 05/27/20 19:00 07:00 Intake Total 930 ml 1180 ml Output Total 700 ml Balance 230 ml 1180 ml Intake Free Water 200 ml 350 ml IV Total 130 ml Tube Feeding 490 ml 700 ml Other 240 ml Output Urine Total 700 ml Height (Feet): 5 Height (Inches): 2.00 Weight (Pounds): 125 Objective Thin woman in JAMES no distress (+) diffuse skin disease NCAT neck supple , (+) Trach CTA RR abd soft NT ND, GT no edema Assessment/Plan Assessment/Plan: Assessment - Anemia, but with brown OB (+) stools - Diarrhea, small volume - C Diff (-) , ? tube feed related - H&H stable - Fever, PNA - Respiratory failure - Dysphagia / GT - h/o BRCA - skin disorder - lymphadenopathy on CT - liver / renal lesions on CT - infectious vs malignant - free water deficit - low albumin Recommendations - transfuse PRN - Vital AF trial - follow stool output - Beneprotein - conservative f/u per discussion with son - PPI - monitor labs - abx per ID - Onc f/u - repeat CT -- - increase free water via GT Priti Sequeira MD May 27, 2020 21:06
--- NOTE | 2020-05-27 22:04 | Cardiology Progress Note ---
Subjective DATE OF SERVICE: May 27, 2020 Baseline mentation; noncommunicative Monitor: sinus with PAC's; no sustained runs of atrial arrhythmias In no apparent distress per staff. Remains on vent support via trach. Objective Last 24 Hour Vital Signs Date Time Temp Pulse Resp B/P (MAP) Pulse Ox O2 Delivery O2 Flow Rate FiO2 05/27/20 20:34 99 100/60 05/27/20 20:00 Mechanical Ventilator 05/27/20 20:00 99.5 99 19 100/60 (73) 100 05/27/20 20:00 40 05/27/20 19:50 97 05/27/20 19:19 101 18 40 05/27/20 16:00 Mechanical Ventilator 05/27/20 16:00 105 05/27/20 16:00 40 05/27/20 16:00 97.0 110 19 123/81 (95) 100 05/27/20 14:55 105 15 40 05/27/20 14:00 105 101/59 05/27/20 12:00 91 05/27/20 12:00 97.3 95 20 106/72 (83) 100 05/27/20 12:00 40 05/27/20 12:00 Mechanical Ventilator 05/27/20 10:58 64 17 40 05/27/20 08:36 121 114/74 05/27/20 08:00 40 05/27/20 08:00 Mechanical Ventilator 05/27/20 07:50 113 05/27/20 07:46 97.2 121 22 114/74 (87) 100 05/27/20 07:16 65 21 40 05/27/20 05:54 123 112/67 05/27/20 04:00 Mechanical Ventilator 05/27/20 04:00 98.2 123 22 112/67 (82) 100 05/27/20 04:00 40 05/27/20 03:18 114 05/27/20 03:14 116 22 40 05/27/20 00:12 110 05/27/20 00:00 Mechanical Ventilator 05/27/20 00:00 96.8 110 18 100/59 (73) 100 05/26/20 23:04 112 19 40 HEENT: Thick Trach secretions RHYTHM: NSR, Afib LUNGS: bilateral rhonchi CARDIAC: normal rate, regular rhythm, normal S1 and S2, other - ectopic beats ABDOMEN: normal bowel sounds, non tender, soft, hepatomegaly, splenomegaly, G-T ube intact EXTREMITIES: non-tender, no calf tenderness, trace edema Assessment/Plan Assessment/Plan Polymicrobial healthcare associated PNA Vent dep respiratory failure Paroxysmal AFib/SVT Hx breast CA Lymphadenopathy with splenomegaly Dehydration/hypernatremia Hypokalemia Vent support Avoid beta agonist Abx Monitor volume status; free water replacement adjusted Maintain therapeutic K+/Mg++ levels Titrate beta mingo dose Recheck labs Luis Felipe Sorto MD May 27, 2020 22:04
[2020-05-27] MEDS: DiphenhydrAMINE 25mg/10ml Elixir GT PRN (22:33)
[2020-05-28] VITALS (7 sets, daily range): BP systolic 101–119; BP diastolic 62–76
[2020-05-28] MEDS: 1/2NS w/KCl 20mEq 1000ml 1,000 ML IV SCH ×2 (00:46→14:33)
[2020-05-28 05:54] LABS: HEMATOCRIT 26.4 % (37.0-47.0); HEMOGLOBIN 8.8 G/DL (12.0-16.0); LYMPHOCYTES % (AUTO) 24.4 % (20.0-45.0); MEAN CORPUSCULAR VOLUME 85 FL (80-99); MONOCYTES % (AUTO) 5.7 % (1.0-10.0); PLATELET COUNT 177 K/UL (150-450); RED CELL DISTRIBUTION WIDTH 20.5 % (11.6-14.8); WHITE BLOOD COUNT 4.4 K/UL (4.8-10.8)
[2020-05-28 05:57] LABS: ANION GAP 4 mmol/L (5-15); BLOOD UREA NITROGEN 23 mg/dL (7-18); CALCIUM 7.9 MG/DL (8.5-10.1); CARBON DIOXIDE 28 MMOL/L (21-32); CHLORIDE 108 MMOL/L (98-107); CREATININE 0.6 MG/DL (0.55-1.30); SODIUM 140 MMOL/L (136-145)
[2020-05-28] MEDS: dilTIAZem HCl 30mg tab GT SCH ×3 (06:01→22:30)
[2020-05-28 06:05] LABS: ALANINE AMINOTRANSFERASE 6 U/L (12-78); ALBUMIN 1.5 G/DL (3.4-5.0); ALKALINE PHOSPHATASE 306 U/L (46-116); ASPARTATE AMINO TRANSFERASE 40 U/L (15-37); BILIRUBIN,DIRECT 0.2 MG/DL (0.0-0.3); BILIRUBIN,TOTAL 0.4 MG/DL (0.2-1.0)
--- NOTE | 2020-05-28 06:53 | Hematology/Onc Progress Note ---
Assessment/Plan Assessment/Plan Assessment and Recs # Breast cancer, stage IV, on chemotherapy as outpatient --> obtain further records, order placed-->last chemo was march 2019, s/p 5 cycles --> katie explain lymphadenopathy as seen on ct --> Ct repeated with contrast shows no significant lad # Pancytopenia is due to recent chemo and infection --> imaging has been reviewed, does have splenomegaly --> hep and hiv are neg --> imaging abd reviewed --> hgb 9.7-->8.8 --> wbc 4.4 --> EPOGEN started --> sp transfusion prbc # Pneumonia with b/l infiltrates --> s/p abx meropenem --> per ID # Resp failure s/p trach/vent # Dysphagia s/p peg # Splenomegaly. 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 Appreciate consultation and jelly Randall/Md Subjective Allergies: Coded Allergies: No Known Allergies (Unverified , 02/09/20) All Systems: reviewed and negative except above Subjective 05/22 on bipap, desaturates overnight, no bleeding, smear reviewed 05/23 is awake, with itching, meds noted, no bleeding, jelly randall 05/25 labs are reviewed, meds noted, no major changes, hgb 9.7 05/26 itching, scratching and on mech vent, no bleeding 05/27 on trach/vent, gtube, with foely, labs noted, no bleeding 05/28 nv, on vent/trach, no bleedign, wbc is lower as is hgb , reviewed prior w/u Objective Objective Current Medications Medications (Trade) Dose Ordered Sig/Lucy Route PRN Reason Start Time Stop Time Status Last Admin Dose Admin Acetaminophen (Tylenol) 650 mg Q4H PRN GT Mild Pain, Temp >100.5 05/16/20 17:45 06/15/20 17:44 05/25/20 22:07 Al Hydroxide/Mg Hydroxide (Mylanta) 30 ml Q4H PRN GT Abdominal cramps 05/16/20 17:45 06/15/20 17:44 Ascorbic Acid (Vitamin C) 500 mg DAILY GT 05/17/20 09:00 06/16/20 08:59 05/27/20 08:36 Clonidine HCl (Catapres Tab) 0.1 mg Q6H PRN GT SBP>160 or DBP>90 05/16/20 19:45 08/14/20 19:44 Diltiazem HCl (Cardizem Tab) 30 mg EVERY 8 HOURS GT 05/16/20 22:00 06/15/20 21:59 05/28/20 06:01 Diphenhydramine HCl (Benadryl) 25 mg Q6H PRN GT Itching 05/27/20 21:30 06/15/20 21:44 05/27/20 22:33 Epoetin Liam (Epoetin Liam-EPBX(NON ESRD)) 10,000 unit TUE-TUE-TUE SUBQ 05/16/20 21:00 08/14/20 20:59 05/26/20 21:11 Famotidine (Pepcid) 20 mg BID GT 05/17/20 09:00 08/15/20 08:59 05/27/20 18:19 Levothyroxine Sodium (Synthroid) 100 mcg DAILY@0630 GT 05/17/20 06:30 06/16/20 06:29 05/28/20 06:01 Metoprolol Tartrate (Lopressor) 12.5 mg Q12HR GT 05/16/20 21:00 08/14/20 20:59 05/27/20 08:36 Multivitamins (Multivitamins W/ Minerals 15ml Liquid) 15 ml DAILY GT 05/17/20 09:00 06/16/20 08:59 05/27/20 08:35 Sodium 1,000 ml @ 75 mls/hr [id number] IV 05/26/20 23:30 06/25/20 23:29 05/28/20 00:46 Zinc Sulfate (Zinc Sulfate) 220 mg DAILY GT 05/17/20 09:00 08/15/20 08:59 05/27/20 08:34 Last 24 Hour Vital Signs Date Time Temp Pulse Resp B/P (MAP) Pulse Ox O2 Delivery O2 Flow Rate FiO2 05/28/20 06:01 112 148/95 05/28/20 04:02 104 05/28/20 04:00 98.1 107 21 115/68 (84) 100 05/28/20 04:00 40 05/28/20 04:00 Mechanical Ventilator 05/28/20 03:28 88 17 40 05/28/20 00:28 96 05/28/20 00:00 Mechanical Ventilator 05/28/20 00:00 40 05/28/20 00:00 99.0 107 19 101/70 (80) 100 05/27/20 22:34 113 124/96 05/27/20 22:30 97 19 40 05/27/20 20:34 99 100/60 05/27/20 20:00 Mechanical Ventilator 05/27/20 20:00 99.5 99 19 100/60 (73) 100 05/27/20 20:00 40 05/27/20 19:50 97 05/27/20 19:19 101 18 40 05/27/20 16:00 Mechanical Ventilator 05/27/20 16:00 105 05/27/20 16:00 40 05/27/20 16:00 97.0 110 19 123/81 (95) 100 05/27/20 14:55 105 15 40 05/27/20 14:00 105 101/59 05/27/20 12:00 91 05/27/20 12:00 97.3 95 20 106/72 (83) 100 05/27/20 12:00 40 05/27/20 12:00 Mechanical Ventilator 05/27/20 10:58 64 17 40 05/27/20 08:36 121 114/74 05/27/20 08:00 40 05/27/20 08:00 Mechanical Ventilator 05/27/20 07:50 113 05/27/20 07:46 97.2 121 22 114/74 (87) 100 05/27/20 07:16 65 21 40 05/27/20 05:54 123 112/67 05/27/20 04:00 Mechanical Ventilator 05/27/20 04:00 98.2 123 22 112/67 (82) 100 05/27/20 04:00 40 05/27/20 03:18 114 05/27/20 03:14 116 22 40 05/27/20 00:12 110 05/27/20 00:00 Mechanical Ventilator 05/27/20 00:00 96.8 110 18 100/59 (73) 100 05/26/20 23:04 112 19 40 05/26/20 21:12 103 118/82 05/26/20 21:11 103 118/82 05/26/20 20:00 98.1 103 18 118/82 (94) 100 05/26/20 20:00 40 05/26/20 20:00 Mechanical Ventilator 05/26/20 19:01 99 05/26/20 18:53 105 17 40 05/26/20 16:00 40 05/26/20 16:00 98.7 107 18 126/72 (90) 100 05/26/20 16:00 Mechanical Ventilator 05/26/20 16:00 100 05/26/20 15:05 112 17 40 05/26/20 14:08 109 128/81 05/26/20 12:00 Mechanical Ventilator 05/26/20 12:00 40 05/26/20 12:00 98.2 109 19 128/81 (97) 100 05/26/20 12:00 109 05/26/20 11:05 109 16 100 Mechanical Ventilator 40 05/26/20 11:05 109 16 40 05/26/20 09:30 111 112/66 05/26/20 08:00 105 05/26/20 08:00 40 05/26/20 08:00 Mechanical Ventilator 05/26/20 08:00 97.7 111 16 112/66 (81) 97 05/26/20 07:10 111 16 40 Intake and Output 05/27/20 05/28/20 19:00 07:00 Intake Total 1705 ml 1913 ml Output Total 400 ml 1350 ml Balance 1305 ml 563 ml Intake Free Water 475 ml 380 ml IV Total 600 ml 693 ml Tube Feeding 630 ml 840 ml Output Urine Total 400 ml 500 ml Stool Total 850 ml Labs Test 05/28/20 03:00 White Blood Count 4.4 K/UL (4.8-10.8) Red Blood Count 3.10 M/UL (4.20-5.40) Hemoglobin 8.8 G/DL (12.0-16.0) Hematocrit 26.4 % (37.0-47.0) Mean Corpuscular Volume 85 FL (80-99) Mean Corpuscular Hemoglobin 28.5 PG (27.0-31.0) Mean Corpuscular Hemoglobin Concent 33.5 G/DL (32.0-36.0) Red Cell Distribution Width 20.5 % (11.6-14.8) Platelet Count 177 K/UL (150-450) Mean Platelet Volume 7.2 FL (6.5-10.1) Neutrophils (%) (Auto) 56.0 % (45.0-75.0) Lymphocytes (%) (Auto) 24.4 % (20.0-45.0) Monocytes (%) (Auto) 5.7 % (1.0-10.0) Eosinophils (%) (Auto) 13.0 % (0.0-3.0) Basophils (%) (Auto) 1.0 % (0.0-2.0) Sodium Level 140 MMOL/L (136-145) Potassium Level 4.0 MMOL/L (3.5-5.1) Chloride Level 108 MMOL/L (98-107) Carbon Dioxide Level 28 MMOL/L (21-32) Anion Gap 4 mmol/L (5-15) Blood Urea Nitrogen 23 mg/dL (7-18) Creatinine 0.6 MG/DL (0.55-1.30) Estimat Glomerular Filtration Rate > 60 mL/min (>60) Glucose Level 127 MG/DL (74-106) Calcium Level 7.9 MG/DL (8.5-10.1) Total Bilirubin 0.4 MG/DL (0.2-1.0) Direct Bilirubin 0.2 MG/DL (0.0-0.3) Aspartate Amino Transf (AST/SGOT) 40 U/L (15-37) Alanine Aminotransferase (ALT/SGPT) 6 U/L (12-78) Alkaline Phosphatase 306 U/L (46-116) Total Protein 9.1 G/DL (6.4-8.2) Albumin 1.5 G/DL (3.4-5.0) Height (Feet): 5 Height (Inches): 2.00 Weight (Pounds): 125 Objective PE General: Awake and alert, nad HEENT: NC/AT. EOMI. Neck: Tracheostomy in place./ vent++ Cardiovascular: Tachycardic. S1 and S2 normal. Resp: Vent dependent through tracheostomy. Abdomen: Abdomen is soft, nondistended. G-tube++ Skin: Diffuse hypopigmentation over the skin. Patient is itchy MSK: Normal tone and bulk. Moving all extremities. Neuro: Awake and alert. Mentating appropriately. Toby Mauricio MD May 28, 2020 06:53
--- NOTE | 2020-05-28 07:05 | NUR ---
NURSE HAND-OFF REPORT: Important Events on Shift: none Patient Status: stable Diet: vital af at 70cc/hr Pending Orders: n Pending Results/Labs:n Pending MD notification:n Latest Vital Signs: Temperature 98.1 , Pulse 112 , B/P 148 /95 , Respiratory Rate 21 , O2 SAT 100 , Mechanical Ventilator, O2 Flow Rate . Vital Sign Comment: n EKG Rhythm: Sinus Tachycardia Rhythm change?: N MD Notified?: Juan Sorto MD Response: Latest Hope Fall Score: 35 Fall Risk: Medium Risk Safety Measures: Call light Within Reach, Bed Alarm Zone 1, Side Rails Side Rails x2, Bed position Low and Locked. Fall Precautions: Yellow Socks Yellow Gown Door Sign Patient Fall Education Report given to Gerson Randall RN/ MAGI Novoa.
--- NOTE | 2020-05-28 07:15 | NUR ---
NURSE NOTES: Received report from MAGI HERNANDEZ. Patient is on bed, awake, no signs of distress noted, responds to name, and tries to communicate. Patient is on vent-trache with settings of AC 14, Vt 550, FiO2 40%, PEEP 5, tolerating well. Patient has a GT, patent, intact, with feeding Vital AF 1.2 at 70cc/hr (currently off from [id number]). Patient is on rectal tube, patent and intact. Vann catheter patent, intact, draining yellow urine. Patient has a L FA 20 g IV, patent, intact, saline locked, and a R hand 22 g IV patent, intact, running 1/2 NS 20 mEq (75cc/hr). HOB is elevated, bed is at lowest position, locked, call light within reach, side rails up. Patient will continue to be monitored.
[2020-05-28] MEDS: Multivitamins W/Minerals 15 ML UDC GT SCH (08:27)
[2020-05-28] MEDS: Metoprolol Tartrate 12.5mg TAB GT SCH ×2 (08:28→21:30)
[2020-05-28] MEDS: Zinc Sulfate 220mg GT SCH (08:28)
[2020-05-28] MEDS: Ascorbic Acid 500mg tab GT SCH (08:28)
--- NOTE | 2020-05-28 09:17 | Pulmonology Progress Note ---
Subjective ROS Limited/Unobtainable: Yes Constitutional: Reports: fever, other - Ca=599.4 Allergies: Coded Allergies: No Known Allergies (Unverified , 02/09/20) All Systems: reviewed and negative except above Subjective care noted anemic son updated elevated CRP ++ lymphadenopathy Objective Last 24 Hour Vital Signs Date Time Temp Pulse Resp B/P (MAP) Pulse Ox O2 Delivery O2 Flow Rate FiO2 05/28/20 08:28 104 117/76 05/28/20 08:00 96.6 104 16 117/76 (90) 100 05/28/20 08:00 40 05/28/20 07:13 95 18 40 05/28/20 06:01 112 148/95 05/28/20 04:02 104 05/28/20 04:00 98.1 107 21 115/68 (84) 100 05/28/20 04:00 40 05/28/20 04:00 Mechanical Ventilator 05/28/20 03:28 88 17 40 05/28/20 00:28 96 05/28/20 00:00 Mechanical Ventilator 05/28/20 00:00 40 05/28/20 00:00 99.0 107 19 101/70 (80) 100 05/27/20 22:34 113 124/96 05/27/20 22:30 97 19 40 05/27/20 20:34 99 100/60 05/27/20 20:00 Mechanical Ventilator 05/27/20 20:00 99.5 99 19 100/60 (73) 100 05/27/20 20:00 40 05/27/20 19:50 97 05/27/20 19:19 101 18 40 05/27/20 16:00 Mechanical Ventilator 05/27/20 16:00 105 05/27/20 16:00 40 05/27/20 16:00 97.0 110 19 123/81 (95) 100 05/27/20 14:55 105 15 40 05/27/20 14:00 105 101/59 05/27/20 12:00 91 05/27/20 12:00 97.3 95 20 106/72 (83) 100 05/27/20 12:00 40 05/27/20 12:00 Mechanical Ventilator 05/27/20 10:58 64 17 40 Intake and Output 05/27/20 05/28/20 19:00 07:00 Intake Total 1705 ml 2058 ml Output Total 400 ml 1350 ml Balance 1305 ml 708 ml Intake Free Water 475 ml 380 ml IV Total 600 ml 768 ml Tube Feeding 630 ml 910 ml Output Urine Total 400 ml 500 ml Stool Total 850 ml Objective WDWN NAD trach reduced breath sounds bilaterally without rhonchi or wheeze [id number] tachy without MRG NABS nontender Gt no CCE nonfocal Laboratory Tests 05/28/20 03:00: White Blood Count 4.4L, Red Blood Count 3.10L, Hemoglobin 8.8L, Hematocrit 26.4L , Mean Corpuscular Volume 85, Mean Corpuscular Hemoglobin 28.5, Mean Corpuscular Hemoglobin Concent 33.5, Red Cell Distribution Width 20.5H, Platelet Count 177, Mean Platelet Volume 7.2, Neutrophils (%) (Auto) 56.0, Lymphocytes (%) (Auto) 24.4, Monocytes (%) (Auto) 5.7, Eosinophils (%) (Auto) 13.0H, Basophils (%) (Auto) 1.0, Sodium Level 140, Potassium Level 4.0, Chloride Level 108H, Carbon Dioxide Level 28, Anion Gap 4L, Blood Urea Nitrogen 23H, Creatinine 0.6, Estimat Glomerular Filtration Rate > 60, Glucose Level 127H, Calcium Level 7.9L, Total Bilirubin 0.4, Direct Bilirubin 0.2, Aspartate Amino Transf (AST/SGOT) 40H, Alanine Aminotransferase (ALT/SGPT) 6L, Alkaline Phosphatase 306H, Total Protein 9.1H, Albumin 1.5L, Prealbumin [Pending] Current Medications Medications (Trade) Dose Ordered Sig/Lucy Route PRN Reason Start Time Stop Time Status Last Admin Dose Admin Acetaminophen (Tylenol) 650 mg Q4H PRN GT Mild Pain, Temp >100.5 05/16/20 17:45 06/15/20 17:44 05/25/20 22:07 Al Hydroxide/Mg Hydroxide (Mylanta) 30 ml Q4H PRN GT Abdominal cramps 05/16/20 17:45 06/15/20 17:44 Ascorbic Acid (Vitamin C) 500 mg DAILY GT 05/17/20 09:00 06/16/20 08:59 05/28/20 08:28 Clonidine HCl (Catapres Tab) 0.1 mg Q6H PRN GT SBP>160 or DBP>90 05/16/20 19:45 08/14/20 19:44 Diltiazem HCl (Cardizem Tab) 30 mg EVERY 8 HOURS GT 05/16/20 22:00 06/15/20 21:59 05/28/20 06:01 Diphenhydramine HCl (Benadryl) 25 mg Q6H PRN GT Itching 05/27/20 21:30 06/15/20 21:44 05/27/20 22:33 Epoetin Liam (Epoetin Liam-EPBX(NON ESRD)) 10,000 unit TUE-TUE-TUE SUBQ 05/16/20 21:00 08/14/20 20:59 05/26/20 21:11 Famotidine (Pepcid) 20 mg BID GT 05/17/20 09:00 08/15/20 08:59 05/28/20 08:28 Levothyroxine Sodium (Synthroid) 100 mcg DAILY@0630 GT 05/17/20 06:30 06/16/20 06:29 05/28/20 06:01 Metoprolol Tartrate (Lopressor) 12.5 mg Q12HR GT 05/16/20 21:00 08/14/20 20:59 05/28/20 08:28 Multivitamins (Multivitamins W/ Minerals 15ml Liquid) 15 ml DAILY GT 05/17/20 09:00 06/16/20 08:59 05/28/20 08:27 Sodium 1,000 ml @ 75 mls/hr [id number] IV 05/26/20 23:30 06/25/20 23:29 05/28/20 00:46 Zinc Sulfate (Zinc Sulfate) 220 mg DAILY GT 05/17/20 09:00 08/15/20 08:59 05/28/20 08:28 Assessment/Plan Assessment/Plan Anemia, status post blood transfusion history of UTI Chronic respiratory failure , ventilator dependent with tracheostomy status Dysphagia, feeding by G-tube History of sepsis Decubitus skin ulcer present on admission Chronic dermatitis Hypotension pericardial effusion small elevated CRP pulmonary hypertension ++lymphadenopathy splenomegaly liver lesion Breast cancer PLAN heme/onc noted/ discuss further with oncology nutrition care reviewed vent support rate controlled complete antibiotics update family once further evaluate by oncology dc planning prognosis overall poor impression, plan, and exam edited and reviewed in detail care discussed with Stevenson Emerson MD May 28, 2020 09:17
--- NOTE | 2020-05-28 10:22 | NUR ---
NURSE NOTES: Patient asking for ice chips. Dr. Medina at nurse station, made aware of patient's request. Per Dr. Medina patient may have ice chips. Inquired Dr. Medina if they would like speech therapist evaluation as that patient is trach to vent. Dr. Medina acknowledged and did not request speech therapist evaluation. Patient may have ice chips per Dr. Medina. Will continue to monitor patient.
--- NOTE | 2020-05-28 11:43 | Infectious Diseases Prog Note ---
Assessment/Plan Assessment/Plan antibiotics : meropenem A 1. acenitobacter, proteus, pseudomonas pneumonia COVID 19 negative 2. breast cancer 3. respiratory failure s/p tracheostomy 4. ? 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 d/c meropenem 2. observe off antibiotics Subjective ROS Limited/Unobtainable: Yes Allergies: Coded Allergies: No Known Allergies (Unverified , 02/09/20) Objective Last 24 Hour Vital Signs Date Time Temp Pulse Resp B/P (MAP) Pulse Ox O2 Delivery O2 Flow Rate FiO2 05/28/20 08:28 104 117/76 05/28/20 08:00 96.6 104 16 117/76 (90) 100 05/28/20 08:00 Mechanical Ventilator 05/28/20 08:00 40 05/28/20 07:29 103 05/28/20 07:13 95 18 40 05/28/20 06:01 112 148/95 05/28/20 04:02 104 05/28/20 04:00 98.1 107 21 115/68 (84) 100 05/28/20 04:00 40 05/28/20 04:00 Mechanical Ventilator 05/28/20 03:28 88 17 40 05/28/20 00:28 96 05/28/20 00:00 Mechanical Ventilator 05/28/20 00:00 40 05/28/20 00:00 99.0 107 19 101/70 (80) 100 05/27/20 22:34 113 124/96 05/27/20 22:30 97 19 40 05/27/20 20:34 99 100/60 05/27/20 20:00 Mechanical Ventilator 05/27/20 20:00 99.5 99 19 100/60 (73) 100 05/27/20 20:00 40 05/27/20 19:50 97 05/27/20 19:19 101 18 40 05/27/20 16:00 Mechanical Ventilator 05/27/20 16:00 105 05/27/20 16:00 40 05/27/20 16:00 97.0 110 19 123/81 (95) 100 05/27/20 14:55 105 15 40 05/27/20 14:00 105 101/59 05/27/20 12:00 91 05/27/20 12:00 97.3 95 20 106/72 (83) 100 05/27/20 12:00 40 05/27/20 12:00 Mechanical Ventilator Height (Feet): 5 Height (Inches): 2.00 Weight (Pounds): 125 HEENT: status post trach Respiratory/Chest: lungs clear Cardiovascular: normal rate, regular rhythm, no gallop/murmur Abdomen: soft, non tender, other - GT Extremities: other - + edema, right arm PICC Laboratory Tests Test 05/28/20 03:00 White Blood Count 4.4 K/UL (4.8-10.8) L Red Blood Count 3.10 M/UL (4.20-5.40) L Hemoglobin 8.8 G/DL (12.0-16.0) L Hematocrit 26.4 % (37.0-47.0) L Mean Corpuscular Volume 85 FL (80-99) Mean Corpuscular Hemoglobin 28.5 PG (27.0-31.0) Mean Corpuscular Hemoglobin Concent 33.5 G/DL (32.0-36.0) Red Cell Distribution Width 20.5 % (11.6-14.8) H Platelet Count 177 K/UL (150-450) Mean Platelet Volume 7.2 FL (6.5-10.1) Neutrophils (%) (Auto) 56.0 % (45.0-75.0) Lymphocytes (%) (Auto) 24.4 % (20.0-45.0) Monocytes (%) (Auto) 5.7 % (1.0-10.0) Eosinophils (%) (Auto) 13.0 % (0.0-3.0) H Basophils (%) (Auto) 1.0 % (0.0-2.0) Sodium Level 140 MMOL/L (136-145) Potassium Level 4.0 MMOL/L (3.5-5.1) Chloride Level 108 MMOL/L (98-107) H Carbon Dioxide Level 28 MMOL/L (21-32) Anion Gap 4 mmol/L (5-15) L Blood Urea Nitrogen 23 mg/dL (7-18) H Creatinine 0.6 MG/DL (0.55-1.30) Estimat Glomerular Filtration Rate > 60 mL/min (>60) Glucose Level 127 MG/DL (74-106) H Calcium Level 7.9 MG/DL (8.5-10.1) L Total Bilirubin 0.4 MG/DL (0.2-1.0) Direct Bilirubin 0.2 MG/DL (0.0-0.3) Aspartate Amino Transf (AST/SGOT) 40 U/L (15-37) H Alanine Aminotransferase (ALT/SGPT) 6 U/L (12-78) L Alkaline Phosphatase 306 U/L (46-116) H Total Protein 9.1 G/DL (6.4-8.2) H Albumin 1.5 G/DL (3.4-5.0) L Prealbumin Pending Current Medications Medications (Trade) Dose Ordered Sig/Lucy Route PRN Reason Start Time Stop Time Status Last Admin Dose Admin Acetaminophen (Tylenol) 650 mg Q4H PRN GT Mild Pain, Temp >100.5 05/16/20 17:45 06/15/20 17:44 05/25/20 22:07 Al Hydroxide/Mg Hydroxide (Mylanta) 30 ml Q4H PRN GT Abdominal cramps 05/16/20 17:45 06/15/20 17:44 Ascorbic Acid (Vitamin C) 500 mg DAILY GT 05/17/20 09:00 06/16/20 08:59 05/28/20 08:28 Clonidine HCl (Catapres Tab) 0.1 mg Q6H PRN GT SBP>160 or DBP>90 05/16/20 19:45 08/14/20 19:44 Diltiazem HCl (Cardizem Tab) 30 mg EVERY 8 HOURS GT 05/16/20 22:00 06/15/20 21:59 05/28/20 06:01 Diphenhydramine HCl (Benadryl) 25 mg Q6H PRN GT Itching 05/27/20 21:30 06/15/20 21:44 05/27/20 22:33 Epoetin Liam (Epoetin Liam-EPBX(NON ESRD)) 10,000 unit TUE-TUE-TUE SUBQ 05/16/20 21:00 08/14/20 20:59 05/26/20 21:11 Famotidine (Pepcid) 20 mg BID GT 05/17/20 09:00 08/15/20 08:59 05/28/20 08:28 Levothyroxine Sodium (Synthroid) 100 mcg DAILY@0630 GT 05/17/20 06:30 06/16/20 06:29 05/28/20 06:01 Metoprolol Tartrate (Lopressor) 12.5 mg Q12HR GT 05/16/20 21:00 08/14/20 20:59 05/28/20 08:28 Multivitamins (Multivitamins W/ Minerals 15ml Liquid) 15 ml DAILY GT 05/17/20 09:00 06/16/20 08:59 05/28/20 08:27 Sodium 1,000 ml @ 75 mls/hr [id number] IV 05/26/20 23:30 06/25/20 23:29 05/28/20 00:46 Zinc Sulfate (Zinc Sulfate) 220 mg DAILY GT 05/17/20 09:00 08/15/20 08:59 05/28/20 08:28 Hong Camacho MD May 28, 2020 11:43
--- NOTE | 2020-05-28 14:00 | NUR ---
NURSE NOTES: Patient refuses the slider despite education given. Left only chux underneath.
--- NOTE | 2020-05-28 15:26 | NUR ---
CASE MANAGEMENT:REVIEW 05/28/20 SI: BILATERAL PNA. ANEMIA TRACH/VENT/GTUBE. PERSISTENT TACHYCARDIA 120'S 97.7 106 20 102/62 100% ON VENT SUPPORT W/40% FIO2 WBC-4.4 H/H-8.8/26.4 BUN+23 IS:IVF@75/HR CARDIZEM GT Q8HR LOPRESSOR GT Q12 EPOETIN SQ MWF : STEP DOWN UNIT DCP: FROM [facility] Addendum: 05/28/20 at 1532 by YANETH OCAMPO, EDITH MONSONN PLAN: THORACENTESIS FOR TODAY
[2020-05-28] MEDS: DiphenhydrAMINE 25mg/10ml Elixir GT PRN (15:39)
--- NOTE | 2020-05-28 15:45 | NUR ---
NURSE NOTES: Gave Benadryl PRN for itching. Patient will continue to be monitored and reassessed in 30 minutes.
--- NOTE | 2020-05-28 16:15 | NUR ---
NURSE NOTES: Patient is tolerating Benadryl well. VS are BP 112/74, HR 95, O2 Sat 100%, temp 98.1F, RR 19. Patient will continue to be monitored.
--- NOTE | 2020-05-28 18:48 | Surgery Progress Note ---
Surgery Progress Note Subjective Additional Comments comfortable stable tolerating diet no n/v/f/c labs noted Objective Last 24 Hour Vital Signs Date Time Temp Pulse Resp B/P (MAP) Pulse Ox O2 Delivery O2 Flow Rate FiO2 05/28/20 16:00 108 05/28/20 16:00 40 05/28/20 16:00 Mechanical Ventilator 05/28/20 15:39 97.5 94 18 107/71 (83) 100 05/28/20 15:24 96 18 40 05/28/20 13:25 100 101/63 05/28/20 12:00 97.7 100 20 102/62 (75) 100 05/28/20 12:00 40 05/28/20 12:00 Mechanical Ventilator 05/28/20 12:00 106 05/28/20 10:42 91 18 40 05/28/20 08:28 104 117/76 05/28/20 08:00 96.6 104 16 117/76 (90) 100 05/28/20 08:00 Mechanical Ventilator 05/28/20 08:00 40 05/28/20 07:29 103 05/28/20 07:13 95 18 40 05/28/20 06:01 112 148/95 05/28/20 04:02 104 05/28/20 04:00 98.1 107 21 115/68 (84) 100 05/28/20 04:00 40 05/28/20 04:00 Mechanical Ventilator 05/28/20 03:28 88 17 40 05/28/20 00:28 96 05/28/20 00:00 Mechanical Ventilator 05/28/20 00:00 40 05/28/20 00:00 99.0 107 19 101/70 (80) 100 05/27/20 22:34 113 124/96 05/27/20 22:30 97 19 40 05/27/20 20:34 99 100/60 05/27/20 20:00 Mechanical Ventilator 05/27/20 20:00 99.5 99 19 100/60 (73) 100 05/27/20 20:00 40 05/27/20 19:50 97 05/27/20 19:19 101 18 40 I&O Intake and Output 05/27/20 05/28/20 19:00 07:00 Intake Total 1705 ml 2058 ml Output Total 400 ml 1350 ml Balance 1305 ml 708 ml Intake Free Water 475 ml 380 ml IV Total 600 ml 768 ml Tube Feeding 630 ml 910 ml Output Urine Total 400 ml 500 ml Stool Total 850 ml Dressing: dry Cardiovascular: RSR Respiratory: decreased breath sounds Abdomen: non-tender, present bowel sounds Extremities: no edema, no tenderness, no cyanosis Laboratory Tests Test 05/28/20 03:00 White Blood Count 4.4 K/UL (4.8-10.8) L Red Blood Count 3.10 M/UL (4.20-5.40) L Hemoglobin 8.8 G/DL (12.0-16.0) L Hematocrit 26.4 % (37.0-47.0) L Mean Corpuscular Volume 85 FL (80-99) Mean Corpuscular Hemoglobin 28.5 PG (27.0-31.0) Mean Corpuscular Hemoglobin Concent 33.5 G/DL (32.0-36.0) Red Cell Distribution Width 20.5 % (11.6-14.8) H Platelet Count 177 K/UL (150-450) Mean Platelet Volume 7.2 FL (6.5-10.1) Neutrophils (%) (Auto) 56.0 % (45.0-75.0) Lymphocytes (%) (Auto) 24.4 % (20.0-45.0) Monocytes (%) (Auto) 5.7 % (1.0-10.0) Eosinophils (%) (Auto) 13.0 % (0.0-3.0) H Basophils (%) (Auto) 1.0 % (0.0-2.0) Sodium Level 140 MMOL/L (136-145) Potassium Level 4.0 MMOL/L (3.5-5.1) Chloride Level 108 MMOL/L (98-107) H Carbon Dioxide Level 28 MMOL/L (21-32) Anion Gap 4 mmol/L (5-15) L Blood Urea Nitrogen 23 mg/dL (7-18) H Creatinine 0.6 MG/DL (0.55-1.30) Estimat Glomerular Filtration Rate > 60 mL/min (>60) Glucose Level 127 MG/DL (74-106) H Calcium Level 7.9 MG/DL (8.5-10.1) L Total Bilirubin 0.4 MG/DL (0.2-1.0) Direct Bilirubin 0.2 MG/DL (0.0-0.3) Aspartate Amino Transf (AST/SGOT) 40 U/L (15-37) H Alanine Aminotransferase (ALT/SGPT) 6 U/L (12-78) L Alkaline Phosphatase 306 U/L (46-116) H Total Protein 9.1 G/DL (6.4-8.2) H Albumin 1.5 G/DL (3.4-5.0) L Prealbumin Pending Plan Problems: (1) Pneumonia (2) Symptomatic anemia (3) Decubitus skin ulcer Assessment & Plan: Pt presented on admission with Pressure Injuries, Tracheostomy,Alopecia, Generalized Hypopigmented Skin plaques. Few plaques noted to be open lesions but are pink and dry. Skin assessed under collar of trach and no areas of skin breakdown noted. Full thickness Pressure injury noted to R Buttocks(L)5.7cm x (W)1.7cm x (D)0.3cm. Base of wound is 90% beefy-red,10% slough. Borders are macerated . surrounding dry skin with hypopigmented plaques. Full thickness Pressure injury L Buttocks(L)4.6cm x (W)4.5cm. Base of wound has clusters wounds with intertwining bridges. Wounds have mixed slough and jack appearances. Small amt serous exudate noted. Surrounding dry hypopigmented skin plaques. Proximally and in close proximity skin is denuded. Small pustule with surrounding erythema noted L Hallux(L)0.5cm x (W)0.6cm. NO changes in skin temp periwound. An area of hyperpigmentation from previous wound noted to medial/posterior R Heel. L Heel is otherwise boggy with non-blanching erythema. Reabsorbed DTPI L Heel(L)2.2cm x (W)2cm. Dry brown eschar at base of wound. NO erythema or fluctuance periwound. Unstageable Pressure injury L lateral Malleolus(L)0.7cm x (W)0.9cm. Base of wound has 100% slough.edges dry and adherent to base of wound. No erythema,induration,or fluctuance periwound. Tx.Plan: Cleanse wounds R and L Buttocks with Saline. Apply Therahoney to wounds. Apply Moisture Barrier Paste Periwound. Cover with Optifoam drsg Daily and prn. Apply Betadine to wound R Hallux. Cover with Optifoam drsg every 3 days and prn. Apply Betadine to L lateral Malleolus. Cover with Optifoam drsg. Change every 3 days and prn. Apply Cavilon Skin Barrier to both heels. Cover each heel with Optifoam drsg. Ch daisy every 7 days and prn. Apply moisture barrier paste to R and L Buttocks. Cover with Optiform dressing Q3 days and prn. Apply Cavilon skin barrier both heels cover each with Optiform dressing change Q 7 days and prn. Apply Phytoplex antifungal lotion for itching three times/day Reposition at least every 2hours or as tolerated. Off-load heels with pillow. APM/ELIDIA Mattress overlay. DAILY ESTIMATED NEEDS: Needs based on Wound, critical care, wt loss, [employer] TF/ 52kg 25-35 kcals/kg 4139-5493 total kcals 1.25-2 g protein/kg 65-104 g total protein 25-30 mL/kg 7997-6839 total fluid mLs NUTRITION DIAGNOSIS: Increased kcal and pro needs r/t wound healing as evidenced by admitted w/ wounds @ BL buttocks, pending eval, suspected significant wt loss of 17lbs/10.5% in <3 months. CURRENT TF:Glucerna 1.5 @ 60ml/hr x 20 hrs ENTERAL NUTRITION RECOMMENDATIONS: Glucerna 1.5 @ 50ml/hr x 24 hrs to provide 1200ml, 1800 kcal, 99g pro, 911ml free H2O - Rec 24 hour continuous TF to prevent hypoglycemia - Rec goal rate of 50ml/hr x 24 hrs - Flush per MD. HOB over 30 degrees ADDITIONAL RECOMMENDATIONS: 1) Wound care: add GT BID, continue Vit C and ZnSO4 2) Per SNF: 61 inches (5'1") and wt= 145lbs (05/02/20) -> daily calibrated bedscale wt 3) Monitor BGs, need for NISS- h/o DM 4) Monitor lytes, replete as needed (4) Lymphadenopathy Assessment & Plan: Chest: Lungs diffusely demonstrate a mixture of mosaic attenuation and groundglass opacity with an upper lobe predominance, interspersed with areas of denser consolidation in a patchy distribution, the latter with a lower lobe predominance. There is also some interstitial septal thickening. There are bilateral pleural effusions. The heart is enlarged. There is a small pericardial effusion. There is bilateral hilar and mediastinal lymphadenopathy, with numerous enlarged mediastinal lymph nodes measuring up to 2 cm long axis dimension. There is also bilateral axillary adenopathy, with some infiltration of the axillary fat on the left. There is a tracheostomy. The thyroid is atrophic. The bones are unremarkable. When compared to the previous exam, there is considerably less pleural fluid. There is also less dense parenchymal consolidation. Background groundglass opacity is similar, however. The cardiomegaly and pericardial fluid were previously evident. The mediastinal lymphadenopathy is a new finding. The axillary nodes have also increased in size. There is much less edema of the subcutaneous fat Abdomen pelvis: There is a gastrostomy. Stomach and duodenum are otherwise unremarkable. The appendix is normal. No evidence of diverticulosis or diverticulitis. There is a small amount of free intraperitoneal fluid, predominantly in the pelvis. This is somewhat high in attenuation, measuring up to 21 Hounsfield units. No small bowel distention. No free intraperitoneal gas. There is a rectal tube in place. The lack of IV contrast limits assessment of the solid organs. The liver demonstrates a low-attenuation lesion in segment 6 which demonstrates nonspecific soft tissue attenuation, is ill-defined but measures approximately 2 cm in diameter. The liver is also enlarged. Patient is status post cholecystectomy. No biliary ductal dilatation. The pancreas is unremarkable. Spleen is mildly enlarged, measuring up to 13.5 cm long axis dimension. The adrenals and kidneys are unremarkable. There are prominent but not frankly enlarged retroperitoneal nodes. No pelvic mass or adenopathy. The uterus and adnexal structures are unremarkable. There is a Vann catheter in place. Small amount of air within the bladder presumably is related to the Vann catheterization. There is mild diffuse edema of the subcutaneous fat. The bones are unremarkable. IMPRESSION: Mediastinal and bilateral hilar lymphadenopathy. This is a new finding since previous study of 02/18/2020. This could indicate inflammatory lymphadenopathy, metastatic lymphadenopathy, or lymphoproliferative disorder. Splenomegaly. This is also probably new since the previous 02/18/2020 exam, although the spleen was incompletely included on that study Bilateral parenchymal opacities, as described. Most likely on the basis of p ulmonary edema, although pneumonia also possible. This is less severe than on the previous study Low-attenuation right lobe liver lesion. This could represent primary neoplasm, metastatic neoplasm, benign hemangioma, among other possibilities. Consider f urther evaluation with multiphasic contrast enhanced CT Bilateral pleural effusions, much decreased since the previous exam Tracheostomy Diffuse edema of the subcutaneous fat, improved since 02/18/2020 Free intraperitoneal fluid. High attenuation of this indicates that it could be bloody Rectal tube Gastrostomy Vann catheter (5) Liver mass Assessment & Plan: noted on CT pending repeat CT with contrast - noted ? infection vs abscess? ?mets? Abnormal right kidney, with areas of low attenuation as described likely representing areas of nephritis. There is a complex lesion coming off the lower pole of the right kidney. This could represent a renal neoplasm, but findings are somewhat suspicious for a small abscess. Hepatic abnormality described previously is demonstrated to have mostly low attenuation with some rim enhancement. As this is contiguous with an area of apparent inflammatory change in the right kidney, this could represent a small liver abscess secondary to hepatic invasion of renal infection. This could also represent a complex cyst or an infected cyst. Given the contiguity to the right kidney, it is also possible but less likely that this represents an exophytic renal abscess indenting the liver. Abnormal low-attenuation areas in the left kidney likewise are suspicious for areas of multifocal nephritis. There is a complex low-attenuation lesion with rim enhancement and septation. This could represent a complicated cyst or could represent a small renal abscess. Cystic neoplasm also possible although less likely. Sonography may be useful to better characterize if clinically indicated. Bilateral basilar pulmonary parenchymal infiltrates, likely pneumonia or pulmonary edema secondary to congestive heart failure Trace left pleural effusion also noted Hepatomegaly Thyromegaly Ascites fluid Rectal tube and gastrostomy noted. Cardiomegaly Zia Chung May 28, 2020 18:48
--- NOTE | 2020-05-28 19:11 | NUR ---
NURSE HAND-OFF REPORT: Important Events on Shift: Per Dr. Medina, ice chips are okay to be given to patient. No ST eval needed. Patient Status: Diet: Pending Orders: Pending Results/Labs: Pending MD notification: Latest Vital Signs: Temperature 97.5 , Pulse 98 , B/P 107 /71 , Respiratory Rate 14 , O2 SAT 100 , Mechanical Ventilator, O2 Flow Rate . Vital Sign Comment: N EKG Rhythm: Sinus Tachycardia Rhythm change?: N MD Notified?: Y -Dr. Noreen GOULD Response: Latest Hope Fall Score: 35 Fall Risk: Medium Risk Safety Measures: Call light Within Reach, Bed Alarm Zone 1, Side Rails Side Rails x2, Bed position Low and Locked. Fall Precautions: Yellow Socks Yellow Gown Door Sign Patient Fall Education Report given to MAGI Lewis.
--- NOTE | 2020-05-28 19:15 | NUR ---
NURSE NOTES: Received report from Tonia Omalley, Pt in bed, awake, no signs or symptoms of acute cardiac or respiratory distress noted. On vent -trach with prescribed setting, shiley #8 AC 14 TV 550 FIo2 40% Peep 5. Appears to be saturating @ 99%.ST 111 on surveillance system monitor. Able to make needs known via hand gesture and mouthing words. With G tube running Vital AF @70cc/hr- no residual noted. Vann catheter intact and draining via gravity with color yellow urine , with rectal tube patent, draining via gravity. IV line on R hand #22 patent and flushed well, running 0.45 Ns with KCL 20 MEQ @ 75 cc/hr. Pt has a scaly and dry skin, noted scratching. Aspiration precautions observed- HOB elevated, skin precautions observed. Safety measures in place, bed in lowest positioned and safety brakes engaged, call light within easy reach. Will continue plan of care.
--- NOTE | 2020-05-28 21:25 | General Progress Note ---
Subjective Allergies: Coded Allergies: No Known Allergies (Unverified , 02/09/20) Subjective Above noted no events tolerating feeds stools liquid - via rectal tube H&H lower Objective Last 24 Hour Vital Signs Date Time Temp Pulse Resp B/P (MAP) Pulse Ox O2 Delivery O2 Flow Rate FiO2 05/28/20 20:00 98.6 106 22 110/71 (84) 100 05/28/20 20:00 40 05/28/20 20:00 Mechanical Ventilator 05/28/20 19:01 98 14 40 05/28/20 16:00 108 05/28/20 16:00 40 05/28/20 16:00 Mechanical Ventilator 05/28/20 15:39 97.5 94 18 107/71 (83) 100 05/28/20 15:24 96 18 40 05/28/20 13:25 100 101/63 05/28/20 12:00 97.7 100 20 102/62 (75) 100 05/28/20 12:00 40 05/28/20 12:00 Mechanical Ventilator 05/28/20 12:00 106 05/28/20 10:42 91 18 40 05/28/20 08:28 104 117/76 05/28/20 08:00 96.6 104 16 117/76 (90) 100 05/28/20 08:00 Mechanical Ventilator 05/28/20 08:00 40 05/28/20 07:29 103 05/28/20 07:13 95 18 40 05/28/20 06:01 112 148/95 05/28/20 04:02 104 05/28/20 04:00 98.1 107 21 115/68 (84) 100 05/28/20 04:00 40 05/28/20 04:00 Mechanical Ventilator 05/28/20 03:28 88 17 40 05/28/20 00:28 96 05/28/20 00:00 Mechanical Ventilator 05/28/20 00:00 40 05/28/20 00:00 99.0 107 19 101/70 (80) 100 05/27/20 22:34 113 124/96 05/27/20 22:30 97 19 40 Intake and Output 05/27/20 05/28/20 19:00 07:00 Intake Total 1705 ml 2058 ml Output Total 400 ml 1350 ml Balance 1305 ml 708 ml Intake Free Water 475 ml 380 ml IV Total 600 ml 768 ml Tube Feeding 630 ml 910 ml Output Urine Total 400 ml 500 ml Stool Total 850 ml Laboratory Tests 05/28/20 03:00: White Blood Count 4.4L, Red Blood Count 3.10L, Hemoglobin 8.8L, Hematocrit 26.4L , Mean Corpuscular Volume 85, Mean Corpuscular Hemoglobin 28.5, Mean Corpuscular Hemoglobin Concent 33.5, Red Cell Distribution Width 20.5H, Platelet Count 177, Mean Platelet Volume 7.2, Neutrophils (%) (Auto) 56.0, Lymphocytes (%) (Auto) 24.4, Monocytes (%) (Auto) 5.7, Eosinophils (%) (Auto) 13.0H, Basophils (%) (Auto) 1.0, Sodium Level 140, Potassium Level 4.0, Chloride Level 108H, Carbon Dioxide Level 28, Anion Gap 4L, Blood Urea Nitrogen 23H, Creatinine 0.6, Estimat Glomerular Filtration Rate > 60, Glucose Level 127H, Calcium Level 7.9L, Total Bilirubin 0.4, Direct Bilirubin 0.2, Aspartate Amino Transf (AST/SGOT) 40H, Alanine Aminotransferase (ALT/SGPT) 6L, Alkaline Phosphatase 306H, Total Protein 9.1H, Albumin 1.5L, Prealbumin [Pending] Height (Feet): 5 Height (Inches): 2.00 Weight (Pounds): 125 Objective Thin woman in J[place] no distress (+) diffuse skin disease NCAT neck supple , (+) Trach CTA RR abd soft NT ND, GT no edema Assessment/Plan Assessment/Plan: Assessment - Anemia, but with brown OB (+) stools - Diarrhea, small volume - C Diff (-) , ? tube feed related - H&H stable - Fever, PNA - Respiratory failure - Dysphagia / GT - h/o BRCA - skin disorder - lymphadenopathy on CT - liver / renal lesions on CT - infectious vs malignant - free water deficit - low albumin Recommendations - transfuse PRN - Vital AF trial - follow stool output - Beneprotein - conservative f/u per discussion with son - PPI - monitor labs - abx per ID - Onc f/u - repeat CT -- - increase free water via GT Priti Sequeira MD May 28, 2020 21:25
[2020-05-28] MEDS ORDERED: Omnipaque-300 100ml vial INJ PRN (21:30)
--- NOTE | 2020-05-28 21:30 | NUR ---
NURSE NOTES: Consent done for CT abdomen pelvis tomorrow 05/29/20
[2020-05-28] MEDS: Epoetin Alfa-EPBX (NON ESRD)10,000 unit/ml vial SUBQ SCH (21:33)
--- NOTE | 2020-05-29 | NUR ---
NURSE NOTES: Gtube feeding held.
--- NOTE | 2020-05-29 00:10 | NUR ---
NURSE NOTES: Pt sleeping comfortably in bed. In no apparent cardiac and respiratory distress. Will continue to monitor
--- NOTE | 2020-05-29 02:15 | Cardiology Progress Note ---
Subjective DATE OF SERVICE: May 28, 2020 Baseline mentation; noncommunicative Monitor: sinus with PAC's; no sustained runs of atrial arrhythmias In no apparent distress per staff. Remains on vent support via trach. Onc eval noted Objective Last 24 Hour Vital Signs Date Time Temp Pulse Resp B/P (MAP) Pulse Ox O2 Delivery O2 Flow Rate FiO2 05/29/20 00:00 Mechanical Ventilator 05/29/20 00:00 40 05/28/20 23:58 99.1 103 19 119/75 (90) 100 05/28/20 23:25 96 05/28/20 23:07 88 18 40 05/28/20 22:30 111 122/77 05/28/20 21:30 106 110/71 05/28/20 20:00 98.6 106 22 110/71 (84) 100 05/28/20 20:00 40 05/28/20 20:00 106 05/28/20 20:00 Mechanical Ventilator 05/28/20 19:05 108 05/28/20 19:01 98 14 40 05/28/20 16:00 108 05/28/20 16:00 40 05/28/20 16:00 Mechanical Ventilator 05/28/20 15:39 97.5 94 18 107/71 (83) 100 05/28/20 15:24 96 18 40 05/28/20 13:25 100 101/63 05/28/20 12:00 97.7 100 20 102/62 (75) 100 05/28/20 12:00 40 05/28/20 12:00 Mechanical Ventilator 05/28/20 12:00 106 05/28/20 10:42 91 18 40 05/28/20 08:28 104 117/76 05/28/20 08:00 96.6 104 16 117/76 (90) 100 05/28/20 08:00 Mechanical Ventilator 05/28/20 08:00 40 05/28/20 07:29 103 05/28/20 07:13 95 18 40 05/28/20 06:01 112 148/95 05/28/20 04:02 104 05/28/20 04:00 98.1 107 21 115/68 (84) 100 05/28/20 04:00 40 05/28/20 04:00 Mechanical Ventilator 05/28/20 03:28 88 17 40 HEENT: Thick Trach secretions RHYTHM: NSR, Afib LUNGS: bilateral rhonchi CARDIAC: normal rate, regular rhythm, normal S1 and S2, other - ectopic beats ABDOMEN: normal bowel sounds, non tender, soft, hepatomegaly, splenomegaly, G- Tube intact EXTREMITIES: non-tender, no calf tenderness, trace edema Laboratory Tests Test 05/28/20 03:00 White Blood Count 4.4 K/UL (4.8-10.8) L Red Blood Count 3.10 M/UL (4.20-5.40) L Hemoglobin 8.8 G/DL (12.0-16.0) L Hematocrit 26.4 % (37.0-47.0) L Mean Corpuscular Volume 85 FL (80-99) Mean Corpuscular Hemoglobin 28.5 PG (27.0-31.0) Mean Corpuscular Hemoglobin Concent 33.5 G/DL (32.0-36.0) Red Cell Distribution Width 20.5 % (11.6-14.8) H Platelet Count 177 K/UL (150-450) Mean Platelet Volume 7.2 FL (6.5-10.1) Neutrophils (%) (Auto) 56.0 % (45.0-75.0) Lymphocytes (%) (Auto) 24.4 % (20.0-45.0) Monocytes (%) (Auto) 5.7 % (1.0-10.0) Eosinophils (%) (Auto) 13.0 % (0.0-3.0) H Basophils (%) (Auto) 1.0 % (0.0-2.0) Sodium Level 140 MMOL/L (136-145) Potassium Level 4.0 MMOL/L (3.5-5.1) Chloride Level 108 MMOL/L (98-107) H Carbon Dioxide Level 28 MMOL/L (21-32) Anion Gap 4 mmol/L (5-15) L Blood Urea Nitrogen 23 mg/dL (7-18) H Creatinine 0.6 MG/DL (0.55-1.30) Estimat Glomerular Filtration Rate > 60 mL/min (>60) Glucose Level 127 MG/DL (74-106) H Calcium Level 7.9 MG/DL (8.5-10.1) L Total Bilirubin 0.4 MG/DL (0.2-1.0) Direct Bilirubin 0.2 MG/DL (0.0-0.3) Aspartate Amino Transf (AST/SGOT) 40 U/L (15-37) H Alanine Aminotransferase (ALT/SGPT) 6 U/L (12-78) L Alkaline Phosphatase 306 U/L (46-116) H Total Protein 9.1 G/DL (6.4-8.2) H Albumin 1.5 G/DL (3.4-5.0) L Prealbumin Pending Assessment/Plan Assessment/Plan Polymicrobial healthcare associated PNA Vent dep respiratory failure Paroxysmal AFib/SVT Hx breast CA Lymphadenopathy with splenomegaly Dehydration/hypernatremia Hypokalemia Vent support Avoid beta agonist Abx per ID Monitor volume status; free water replacement adjusted Maintain therapeutic K+/Mg++ levels Titrate beta mingo dose Would not pursue aggressive management in view of co-morbidities Luis Felipe Sorto MD May 29, 2020 02:15
[2020-05-29 04:00] VITALS: BP 135/83
--- NOTE | 2020-05-29 04:00 | NUR ---
NURSE NOTES: Sponge bath given, oral care provided. Wound dressings changed.Turned and reposition pt. Will continue to monitor
[2020-05-29] MEDS: 1/2NS w/KCl 20mEq 1000ml 1,000 ML IV SCH (05:40)
[2020-05-29] MEDS: dilTIAZem HCl 30mg tab GT SCH ×2 (05:46→14:00)
--- NOTE | 2020-05-29 06:37 | Hematology/Onc Progress Note ---
Assessment/Plan Assessment/Plan Assessment and Recs # Breast cancer, stage IV, on chemotherapy as outpatient --> obtain further records, order placed-->last chemo was march 2019, s/p 5 cycles --> katie explain lymphadenopathy as seen on ct --> Ct repeated with contrast shows no significant lad --> given poor performance status, hospice would be reasonable option # Pancytopenia is due to recent chemo and infection --> imaging has been reviewed, does have splenomegaly --> hep and hiv are neg --> imaging abd reviewed --> hgb 9.7-->8.8 --> wbc 4.4 --> EPOGEN started --> sp transfusion prbc # Pneumonia with b/l infiltrates --> s/p abx meropenem --> per ID # Resp failure s/p trach/vent # Dysphagia s/p peg # Splenomegaly. 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 Appreciate consultation and dw Rn/Md Subjective Constitutional: Denies: no symptoms, chills, fever, malaise, weakness, other HEENT: Denies: no symptoms, eye pain, blurred vision, tearing, double vision, ear pain, ear discharge, nose pain, nose congestion, throat pain, throat swelling, mouth pain, mouth swelling, other Cardiovascular: Denies: no symptoms, chest pain, edema, irregular heart rate, lightheadedness, palpitations, syncope, other Respiratory: Denies: no symptoms, cough, shortness of breath, SOB with excertion, SOB at rest, sputum, wheezing, other Gastrointestinal/Abdominal: Denies: no symptoms, abdomen distended, abdominal pain, black stools, tarry stools, blood in stool, constipated, diarrhea, difficulty swallowing, nausea, poor appetite, poor fluid intake, rectal bleeding, vomiting, other Genitourinary: Denies: no symptoms, burning, discharge, frequency, flank pain, hematuria, incontinence, pain, urgency, other Neurologic/Psychiatric: Denies: no symptoms, anxiety, depressed, emotional problems, headache, numbness, paresthesia, pre-existing deficit, seizure, tingling, tremors, weakness, other Allergies: Coded Allergies: No Known Allergies (Unverified , 02/09/20) Subjective 05/22 on bipap, desaturates overnight, no bleeding, smear reviewed 05/23 is awake, with itching, meds noted, no bleeding, dw rn 05/25 labs are reviewed, meds noted, no major changes, hgb 9.7 05/26 itching, scratching and on mech vent, no bleeding 05/27 on trach/vent, gtube, with foely, labs noted, no bleeding 05/28 nv, on vent/trach, no bleedign, wbc is lower as is hgb , reviewed prior w/u 05/[address] a/p to be completed today, no bleeding, meds noted, labs reviewed Objective Objective Current Medications Medications (Trade) Dose Ordered Sig/Lucy Route PRN Reason Start Time Stop Time Status Last Admin Dose Admin Acetaminophen (Tylenol) 650 mg Q4H PRN GT Mild Pain, Temp >100.5 05/16/20 17:45 06/15/20 17:44 05/25/20 22:07 Al Hydroxide/Mg Hydroxide (Mylanta) 30 ml Q4H PRN GT Abdominal cramps 05/16/20 17:45 06/15/20 17:44 Ascorbic Acid (Vitamin C) 500 mg DAILY GT 05/17/20 09:00 06/16/20 08:59 05/28/20 08:28 Barium Sulfate (Readi-Cat 2) 450 ml NOW PRN ORAL Radiology Procedure 05/28/20 21:30 05/30/20 21:29 Clonidine HCl (Catapres Tab) 0.1 mg Q6H PRN GT SBP>160 or DBP>90 05/16/20 19:45 08/14/20 19:44 Diltiazem HCl (Cardizem Tab) 30 mg EVERY 8 HOURS GT 05/16/20 22:00 06/15/20 21:59 05/29/20 05:46 Diphenhydramine HCl (Benadryl) 25 mg Q6H PRN GT Itching 05/27/20 21:30 06/15/20 21:44 05/28/20 15:39 Epoetin Liam (Epoetin Liam-EPBX(NON ESRD)) 10,000 unit MON-WED-TUE SUBQ 05/16/20 21:00 08/14/20 20:59 05/28/20 21:33 Famotidine (Pepcid) 20 mg BID GT 05/17/20 09:00 08/15/20 08:59 05/28/20 17:41 Iohexol (OMNIPAQUE-300 100ml) 100 ml NOW PRN INJ Radiology Procedure 05/28/20 21:30 05/30/20 21:29 Levothyroxine Sodium (Synthroid) 100 mcg DAILY@0630 GT 05/17/20 06:30 06/16/20 06:29 05/29/20 05:45 Metoprolol Tartrate (Lopressor) 12.5 mg Q12HR GT 05/16/20 21:00 08/14/20 20:59 05/28/20 21:30 Multivitamins (Multivitamins W/ Minerals 15ml Liquid) 15 ml DAILY GT 05/17/20 09:00 06/16/20 08:59 05/28/20 08:27 Sodium 1,000 ml @ 75 mls/hr [id number] IV 05/26/20 23:30 06/25/20 23:29 05/29/20 05:40 Zinc Sulfate (Zinc Sulfate) 220 mg DAILY GT 05/17/20 09:00 08/15/20 08:59 05/28/20 08:28 Last 24 Hour Vital Signs Date Time Temp Pulse Resp B/P (MAP) Pulse Ox O2 Delivery O2 Flow Rate FiO2 05/29/20 05:46 107 135/66 05/29/20 04:00 40 05/29/20 04:00 99.1 107 21 135/83 (100) 100 05/29/20 04:00 Mechanical Ventilator 05/29/20 03:33 102 05/29/20 03:05 92 19 40 05/29/20 00:00 Mechanical Ventilator 05/29/20 00:00 40 05/28/20 23:58 99.1 103 19 119/75 (90) 100 05/28/20 23:25 96 05/28/20 23:07 88 18 40 05/28/20 22:30 111 122/77 05/28/20 21:30 106 110/71 05/28/20 20:00 98.6 106 22 110/71 (84) 100 05/28/20 20:00 40 05/28/20 20:00 106 05/28/20 20:00 Mechanical Ventilator 05/28/20 19:05 108 05/28/20 19:01 98 14 40 05/28/20 16:00 108 05/28/20 16:00 40 05/28/20 16:00 Mechanical Ventilator 05/28/20 15:39 97.5 94 18 107/71 (83) 100 05/28/20 15:24 96 18 40 05/28/20 13:25 100 101/63 05/28/20 12:00 97.7 100 20 102/62 (75) 100 05/28/20 12:00 40 05/28/20 12:00 Mechanical Ventilator 05/28/20 12:00 106 05/28/20 10:42 91 18 40 05/28/20 08:28 104 117/76 05/28/20 08:00 96.6 104 16 117/76 (90) 100 05/28/20 08:00 Mechanical Ventilator 05/28/20 08:00 40 05/28/20 07:29 103 05/28/20 07:13 95 18 40 05/28/20 06:01 112 148/95 05/28/20 04:02 104 05/28/20 04:00 98.1 107 21 115/68 (84) 100 05/28/20 04:00 40 05/28/20 04:00 Mechanical Ventilator 05/28/20 03:28 88 17 40 05/28/20 00:28 96 05/28/20 00:00 Mechanical Ventilator 05/28/20 00:00 40 05/28/20 00:00 99.0 107 19 101/70 (80) 100 05/27/20 22:34 113 124/96 05/27/20 22:30 97 19 40 05/27/20 20:34 99 100/60 05/27/20 20:00 Mechanical Ventilator 05/27/20 20:00 99.5 99 19 100/60 (73) 100 05/27/20 20:00 40 05/27/20 19:50 97 05/27/20 19:19 101 18 40 05/27/20 16:00 Mechanical Ventilator 05/27/20 16:00 105 05/27/20 16:00 40 05/27/20 16:00 97.0 110 19 123/81 (95) 100 05/27/20 14:55 105 15 40 05/27/20 14:00 105 101/59 05/27/20 12:00 91 05/27/20 12:00 97.3 95 20 106/72 (83) 100 05/27/20 12:00 40 05/27/20 12:00 Mechanical Ventilator 05/27/20 10:58 64 17 40 05/27/20 08:36 121 114/74 05/27/20 08:00 40 05/27/20 08:00 Mechanical Ventilator 05/27/20 07:50 113 05/27/20 07:46 97.2 121 22 114/74 (87) 100 05/27/20 07:16 65 21 40 Intake and Output 05/28/20 05/29/20 19:00 07:00 Intake Total 1925 ml 1275 ml Output Total 675 ml Balance 1250 ml 1275 ml Intake Free Water 550 ml 250 ml IV Total 675 ml 675 ml Tube Feeding 700 ml 350 ml Output Urine Total 575 ml Stool Total 100 ml Labs Test 05/28/20 03:00 White Blood Count 4.4 K/UL (4.8-10.8) Red Blood Count 3.10 M/UL (4.20-5.40) Hemoglobin 8.8 G/DL (12.0-16.0) Hematocrit 26.4 % (37.0-47.0) Mean Corpuscular Volume 85 FL (80-99) Mean Corpuscular Hemoglobin 28.5 PG (27.0-31.0) Mean Corpuscular Hemoglobin Concent 33.5 G/DL (32.0-36.0) Red Cell Distribution Width 20.5 % (11.6-14.8) Platelet Count 177 K/UL (150-450) Mean Platelet Volume 7.2 FL (6.5-10.1) Neutrophils (%) (Auto) 56.0 % (45.0-75.0) Lymphocytes (%) (Auto) 24.4 % (20.0-45.0) Monocytes (%) (Auto) 5.7 % (1.0-10.0) Eosinophils (%) (Auto) 13.0 % (0.0-3.0) Basophils (%) (Auto) 1.0 % (0.0-2.0) Sodium Level 140 MMOL/L (136-145) Potassium Level 4.0 MMOL/L (3.5-5.1) Chloride Level 108 MMOL/L (98-107) Carbon Dioxide Level 28 MMOL/L (21-32) Anion Gap 4 mmol/L (5-15) Blood Urea Nitrogen 23 mg/dL (7-18) Creatinine 0.6 MG/DL (0.55-1.30) Estimat Glomerular Filtration Rate > 60 mL/min (>60) Glucose Level 127 MG/DL (74-106) Calcium Level 7.9 MG/DL (8.5-10.1) Total Bilirubin 0.4 MG/DL (0.2-1.0) Direct Bilirubin 0.2 MG/DL (0.0-0.3) Aspartate Amino Transf (AST/SGOT) 40 U/L (15-37) Alanine Aminotransferase (ALT/SGPT) 6 U/L (12-78) Alkaline Phosphatase 306 U/L (46-116) Total Protein 9.1 G/DL (6.4-8.2) Albumin 1.5 G/DL (3.4-5.0) Height (Feet): 5 Height (Inches): 2.00 Weight (Pounds): 125 Objective PE General: Awake and alert, nad HEENT: NC/AT. EOMI. Neck: Tracheostomy in place./ vent++ Cardiovascular: Tachycardic. S1 and S2 normal. Resp: Vent dependent through tracheostomy. Abdomen: Abdomen is soft, nondistended. G-tube++ Skin: Diffuse hypopigmentation over the skin. Patient is itchy MSK: Normal tone and bulk. Moving all extremities. Neuro: Awake and alert. Mentating appropriately. Toby Mauricio MD May 29, 2020 06:37
--- NOTE | 2020-05-29 07:34 | NUR ---
NURSE HAND-OFF REPORT: Important Events on Shift: CT abdomen, pelvis w/ contrast Patient Status: Stable Diet: Vital AF 1.2 Pending Orders: Pending Results/Labs: Pending MD notification: Latest Vital Signs: Temperature 99.1 , Pulse 107 , B/P 135 /66 , Respiratory Rate 21 , O2 SAT 100 , Mechanical Ventilator, O2 Flow Rate . Vital Sign Comment: Stable EKG Rhythm: Sinus Rhythm Rhythm change?: N MD Notified?: MD Response: Latest Hope Fall Score: 35 Fall Risk: Medium Risk Safety Measures: Call light Within Reach, Bed Alarm Zone 1, Side Rails Side Rails x2, Bed position Low and Locked. Fall Precautions: Yellow Socks Yellow Gown Door Sign Patient Fall Education Report given to MAGI Carmen .
--- NOTE | 2020-05-29 07:47 | NUR ---
NURSE NOTES: pt. is in bed, awake. opened up eyes and on trach. 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 pt. is NPO for abdominal CT. bed is locked and in lowest position, call light is within reach.
[2020-05-29 08:00] VITALS: BP 116/74
[2020-05-29] MEDS: Ascorbic Acid 500mg tab GT SCH (08:53)
[2020-05-29] MEDS: Zinc Sulfate 220mg GT SCH (08:53)
[2020-05-29] MEDS: Multivitamins W/Minerals 15 ML UDC GT SCH (08:53)
[2020-05-29] MEDS: Metoprolol Tartrate 12.5mg TAB GT SCH (08:53)
--- NOTE | 2020-05-29 09:19 | Infectious Diseases Prog Note ---
Assessment/Plan Assessment/Plan A 1. Pseudomonas, proteus & Acinetobacter pneumonia treated COVID19 negative 2. breast cancer 3. Ventilator dependent respiratory failure s/p tracheostomy 4. 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 ? liver abscess P 1. Observe off antibiotic Subjective ROS Limited/Unobtainable: Yes Allergies: Coded Allergies: No Known Allergies (Unverified , 02/09/20) Objective Last 24 Hour Vital Signs Date Time Temp Pulse Resp B/P (MAP) Pulse Ox O2 Delivery O2 Flow Rate FiO2 05/29/20 08:53 102 116/74 05/29/20 08:00 97.5 102 18 116/74 (88) 100 05/29/20 07:12 94 18 40 05/29/20 05:46 107 135/66 05/29/20 04:00 40 05/29/20 04:00 99.1 107 21 135/83 (100) 100 05/29/20 04:00 Mechanical Ventilator 05/29/20 03:33 102 05/29/20 03:05 92 19 40 05/29/20 00:00 Mechanical Ventilator 05/29/20 00:00 40 05/28/20 23:58 99.1 103 19 119/75 (90) 100 05/28/20 23:25 96 05/28/20 23:07 88 18 40 05/28/20 22:30 111 122/77 05/28/20 21:30 106 110/71 05/28/20 20:00 98.6 106 22 110/71 (84) 100 05/28/20 20:00 40 05/28/20 20:00 106 05/28/20 20:00 Mechanical Ventilator 05/28/20 19:05 108 05/28/20 19:01 98 14 40 05/28/20 16:00 108 05/28/20 16:00 40 05/28/20 16:00 Mechanical Ventilator 05/28/20 15:39 97.5 94 18 107/71 (83) 100 05/28/20 15:24 96 18 40 05/28/20 13:25 100 101/63 05/28/20 12:00 97.7 100 20 102/62 (75) 100 05/28/20 12:00 40 05/28/20 12:00 Mechanical Ventilator 05/28/20 12:00 106 05/28/20 10:42 91 18 40 Height (Feet): 5 Height (Inches): 2.00 Weight (Pounds): 125 HEENT: status post trach Respiratory/Chest: lungs clear, other - on ventilator Cardiovascular: tachycardia Abdomen: soft, non tender, other - GT feeding Skin: rash Neurologic/Psychiatric: other - sleeping Current Medications Medications (Trade) Dose Ordered Sig/Lucy Route PRN Reason Start Time Stop Time Status Last Admin Dose Admin Acetaminophen (Tylenol) 650 mg Q4H PRN GT Mild Pain, Temp >100.5 05/16/20 17:45 06/15/20 17:44 05/25/20 22:07 Al Hydroxide/Mg Hydroxide (Mylanta) 30 ml Q4H PRN GT Abdominal cramps 05/16/20 17:45 06/15/20 17:44 Ascorbic Acid (Vitamin C) 500 mg DAILY GT 05/17/20 09:00 06/16/20 08:59 05/29/20 08:53 Barium Sulfate (Readi-Cat 2) 450 ml NOW PRN ORAL Radiology Procedure 05/28/20 21:30 05/30/20 21:29 Clonidine HCl (Catapres Tab) 0.1 mg Q6H PRN GT SBP>160 or DBP>90 05/16/20 19:45 08/14/20 19:44 Diltiazem HCl (Cardizem Tab) 30 mg EVERY 8 HOURS GT 05/16/20 22:00 06/15/20 21:59 05/29/20 05:46 Diphenhydramine HCl (Benadryl) 25 mg Q6H PRN GT Itching 05/27/20 21:30 06/15/20 21:44 05/28/20 15:39 Epoetin Liam (Epoetin Liam-EPBX(NON ESRD)) 10,000 unit TUE-TUE-TUE SUBQ 05/16/20 21:00 08/14/20 20:59 05/28/20 21:33 Famotidine (Pepcid) 20 mg BID GT 05/17/20 09:00 08/15/20 08:59 05/29/20 08:53 Iohexol (OMNIPAQUE-300 100ml) 100 ml NOW PRN INJ Radiology Procedure 05/28/20 21:30 05/30/20 21:29 Levothyroxine Sodium (Synthroid) 100 mcg DAILY@0630 GT 05/17/20 06:30 06/16/20 06:29 05/29/20 05:45 Metoprolol Tartrate (Lopressor) 12.5 mg Q12HR GT 05/16/20 21:00 08/14/20 20:59 05/29/20 08:53 Multivitamins (Multivitamins W/ Minerals 15ml Liquid) 15 ml DAILY GT 05/17/20 09:00 06/16/20 08:59 05/29/20 08:53 Sodium 1,000 ml @ 75 mls/hr [id number] IV 05/26/20 23:30 06/25/20 23:29 05/29/20 05:40 Zinc Sulfate (Zinc Sulfate) 220 mg DAILY GT 05/17/20 09:00 08/15/20 08:59 05/29/20 08:53 Arnoldo West MD May 29, 2020 09:19
--- NOTE | 2020-05-29 09:29 | Pulmonology Progress Note ---
Subjective ROS Limited/Unobtainable: Yes Constitutional: Reports: fever, other - No=721.4 Allergies: Coded Allergies: No Known Allergies (Unverified , 02/09/20) All Systems: reviewed and negative except above Subjective care noted anemic son updated elevated CRP ++ lymphadenopathy Objective Last 24 Hour Vital Signs Date Time Temp Pulse Resp B/P (MAP) Pulse Ox O2 Delivery O2 Flow Rate FiO2 05/29/20 08:53 102 116/74 05/29/20 08:00 97.5 102 18 116/74 (88) 100 05/29/20 07:12 94 18 40 05/29/20 05:46 107 135/66 05/29/20 04:00 40 05/29/20 04:00 99.1 107 21 135/83 (100) 100 05/29/20 04:00 Mechanical Ventilator 05/29/20 03:33 102 05/29/20 03:05 92 19 40 05/29/20 00:00 Mechanical Ventilator 05/29/20 00:00 40 05/28/20 23:58 99.1 103 19 119/75 (90) 100 05/28/20 23:25 96 05/28/20 23:07 88 18 40 05/28/20 22:30 111 122/77 05/28/20 21:30 106 110/71 05/28/20 20:00 98.6 106 22 110/71 (84) 100 05/28/20 20:00 40 05/28/20 20:00 106 05/28/20 20:00 Mechanical Ventilator 05/28/20 19:05 108 05/28/20 19:01 98 14 40 05/28/20 16:00 108 05/28/20 16:00 40 05/28/20 16:00 Mechanical Ventilator 05/28/20 15:39 97.5 94 18 107/71 (83) 100 05/28/20 15:24 96 18 40 05/28/20 13:25 100 101/63 05/28/20 12:00 97.7 100 20 102/62 (75) 100 05/28/20 12:00 40 05/28/20 12:00 Mechanical Ventilator 05/28/20 12:00 106 05/28/20 10:42 91 18 40 Intake and Output 05/28/20 05/29/20 19:00 07:00 Intake Total 1925 ml 1275 ml Output Total 675 ml Balance 1250 ml 1275 ml Intake Free Water 550 ml 250 ml IV Total 675 ml 675 ml Tube Feeding 700 ml 350 ml Output Urine Total 575 ml Stool Total 100 ml Objective WDWN NAD trach reduced breath sounds bilaterally without rhonchi or wheeze [id number] tachy without MRG NABS nontender Gt no CCE nonfocal Current Medications Medications (Trade) Dose Ordered Sig/Lucy Route PRN Reason Start Time Stop Time Status Last Admin Dose Admin Acetaminophen (Tylenol) 650 mg Q4H PRN GT Mild Pain, Temp >100.5 05/16/20 17:45 06/15/20 17:44 05/25/20 22:07 Al Hydroxide/Mg Hydroxide (Mylanta) 30 ml Q4H PRN GT Abdominal cramps 05/16/20 17:45 06/15/20 17:44 Ascorbic Acid (Vitamin C) 500 mg DAILY GT 05/17/20 09:00 06/16/20 08:59 05/29/20 08:53 Barium Sulfate (Readi-Cat 2) 450 ml NOW PRN ORAL Radiology Procedure 05/28/20 21:30 05/30/20 21:29 Clonidine HCl (Catapres Tab) 0.1 mg Q6H PRN GT SBP>160 or DBP>90 05/16/20 19:45 08/14/20 19:44 Diltiazem HCl (Cardizem Tab) 30 mg EVERY 8 HOURS GT 05/16/20 22:00 06/15/20 21:59 05/29/20 05:46 Diphenhydramine HCl (Benadryl) 25 mg Q6H PRN GT Itching 05/27/20 21:30 06/15/20 21:44 05/28/20 15:39 Epoetin Liam (Epoetin Liam-EPBX(NON ESRD)) 10,000 unit TUE-TUE-TUE SUBQ 05/16/20 21:00 08/14/20 20:59 05/28/20 21:33 Famotidine (Pepcid) 20 mg BID GT 05/17/20 09:00 08/15/20 08:59 05/29/20 08:53 Iohexol (OMNIPAQUE-300 100ml) 100 ml NOW PRN INJ Radiology Procedure 05/28/20 21:30 12/4/20 21:29 Levothyroxine Sodium (Synthroid) 100 mcg DAILY@0630 GT 05/17/20 06:30 06/16/20 06:29 05/29/20 05:45 Metoprolol Tartrate (Lopressor) 12.5 mg Q12HR GT 05/16/20 21:00 08/14/20 20:59 05/29/20 08:53 Multivitamins (Multivitamins W/ Minerals 15ml Liquid) 15 ml DAILY GT 05/17/20 09:00 06/16/20 08:59 05/29/20 08:53 Sodium 1,000 ml @ 75 mls/hr [id number] IV 05/26/20 23:30 06/25/20 23:29 05/29/20 05:40 Zinc Sulfate (Zinc Sulfate) 220 mg DAILY GT 05/17/20 09:00 08/15/20 08:59 05/29/20 08:53 Assessment/Plan Assessment/Plan Anemia, status post blood transfusion history of UTI Chronic respiratory failure , ventilator dependent with tracheostomy status Dysphagia, feeding by G-tube History of sepsis Decubitus skin ulcer present on admission Chronic dermatitis Hypotension pericardial effusion small elevated CRP pulmonary hypertension ++lymphadenopathy splenomegaly liver lesion Breast cancer PLAN heme/onc noted/ recommends hospice nutrition care reviewed vent support rate controlled update family dc planning to snf for now prognosis overall poor impression, plan, and exam edited and reviewed in detail care discussed with Stevenson Emerson MD May 29, 2020 09:29
--- NOTE | 2020-05-29 10:58 | Surgery Progress Note ---
Surgery Progress Note Subjective Symptoms: improved, tolerating diet, passing flatus Objective Last 24 Hour Vital Signs Date Time Temp Pulse Resp B/P (MAP) Pulse Ox O2 Delivery O2 Flow Rate FiO2 05/29/20 08:53 102 116/74 05/29/20 08:00 97.5 102 18 116/74 (88) 100 05/29/20 07:12 94 18 40 05/29/20 05:46 107 135/66 05/29/20 04:00 40 05/29/20 04:00 99.1 107 21 135/83 (100) 100 05/29/20 04:00 Mechanical Ventilator 05/29/20 03:33 102 05/29/20 03:05 92 19 40 05/29/20 00:00 Mechanical Ventilator 05/29/20 00:00 40 05/28/20 23:58 99.1 103 19 119/75 (90) 100 05/28/20 23:25 96 05/28/20 23:07 88 18 40 05/28/20 22:30 111 122/77 05/28/20 21:30 106 110/71 05/28/20 20:00 98.6 106 22 110/71 (84) 100 05/28/20 20:00 40 05/28/20 20:00 106 05/28/20 20:00 Mechanical Ventilator 05/28/20 19:05 108 05/28/20 19:01 98 14 40 05/28/20 16:00 108 05/28/20 16:00 40 05/28/20 16:00 Mechanical Ventilator 05/28/20 15:39 97.5 94 18 107/71 (83) 100 05/28/20 15:24 96 18 40 05/28/20 13:25 100 101/63 05/28/20 12:00 97.7 100 20 102/62 (75) 100 05/28/20 12:00 40 05/28/20 12:00 Mechanical Ventilator 05/28/20 12:00 106 I&O Intake and Output 05/28/20 05/29/20 19:00 07:00 Intake Total 1925 ml 1275 ml Output Total 675 ml Balance 1250 ml 1275 ml Intake Free Water 550 ml 250 ml IV Total 675 ml 675 ml Tube Feeding 700 ml 350 ml Output Urine Total 575 ml Stool Total 100 ml Dressing: dry Wound: clean Cardiovascular: RSR Respiratory: clear Abdomen: soft, non-tender, present bowel sounds Extremities: no edema, no tenderness, no cyanosis Plan Problems: (1) Pneumonia (2) Symptomatic anemia (3) Decubitus skin ulcer Assessment & Plan: Pt presented on admission with Pressure Injuries, Tracheostomy,Alopecia, Generalized Hypopigmented Skin plaques. Few plaques noted to be open lesions but are pink and dry. Skin assessed under collar of trach and no areas of skin breakdown noted. Full thickness Pressure injury noted to R Buttocks(L)5.7cm x (W)1.7cm x (D)0.3cm. Base of wound is 90% beefy-red,10% slough. Borders are macerated . surrounding dry skin with hypopigmented plaques. Full thickness Pressure injury L Buttocks(L)4.6cm x (W)4.5cm. Base of wound has clusters wounds with intertwining bridges. Wounds have mixed slough and jack appearances. Small amt serous exudate noted. Surrounding dry hypopigmented skin plaques. Proximally and in close proximity skin is denuded. Small pustule with surrounding erythema noted L Hallux(L)0.5cm x (W)0.6cm. NO changes in skin temp periwound. An area of hyperpigmentation from previous wound noted to medial/posterior R Heel. L Heel is otherwise boggy with non-blanching erythema. Reabsorbed DTPI L Heel(L)2.2cm x (W)2cm. Dry brown eschar at base of wound. NO erythema or fluctuance periwound. Unstageable Pressure injury L lateral Malleolus(L)0.7cm x (W)0.9cm. Base of wound has 100% slough.edges dry and adherent to base of wound. No erythema,induration,or fluctuance periwound. Tx.Plan: Cleanse wounds R and L Buttocks with Saline. Apply Therahoney to wounds. Apply Moisture Barrier Paste Periwound. Cover with Optifoam drsg Daily and prn. Apply Betadine to wound R Hallux. Cover with Optifoam drsg every 3 days and prn. Apply Betadine to L lateral Malleolus. Cover with Optifoam drsg. Change every 3 days and prn. Apply Cavilon Skin Barrier to both heels. Cover each heel with Optifoam drsg. Change every 7 days and prn. Apply moisture barrier paste to R and L Buttocks. Cover with Optiform dressing Q3 days and prn. Apply Cavilon skin barrier both heels cover each with Optiform dressing change Q 7 days and prn. Apply Phytoplex antifungal lotion for itching three times/day Reposition at least every 2hours or as tolerated. Off-load heels with pillow. APM/ELIDIA Mattress overlay. DAILY ESTIMATED NEEDS: Needs based on Wound, critical care, wt loss, ORDER PICKER/ASSEMBLER TF/ 52kg 25-35 kcals/kg 5751-3913 total kcals 1.25-2 g protein/kg 65-104 g total protein 25-30 mL/kg 1234-3334 total fluid mLs NUTRITION DIAGNOSIS: Increased kcal and pro needs r/t wound healing as evidenced by admitted w/ wounds @ BL buttocks, pending eval, suspected significant wt loss of 17lbs/10.5% in <3 months. CURRENT TF:Glucerna 1.5 @ 60ml/hr x 20 hrs ENTERAL NUTRITION RECOMMENDATIONS: Glucerna 1.5 @ 50ml/hr x 24 hrs to provide 1200ml, 1800 kcal, 99g pro, 911ml free H2O - Rec 24 hour continuous TF to prevent hypoglycemia - Rec goal rate of 50ml/hr x 24 hrs - Flush per MD. HOB over 30 degrees ADDITIONAL RECOMMENDATIONS: 1) Wound care: add GT BID, continue Vit C and ZnSO4 2) Per SNF: 61 inches (5'1") and wt= 145lbs (05/02/20) -> daily calibrated bedscale wt 3) Monitor BGs, need for NISS- h/o DM 4) Monitor lytes, replete as needed (4) Lymphadenopathy Assessment & Plan: Chest: Lungs diffusely demonstrate a mixture of mosaic attenuation and groundglass opacity with an upper lobe predominance, interspersed with areas of denser consolidation in a patchy distribution, the latter with a lower lobe predominance. There is also some interstitial septal thickening. There are bilateral pleural effusions. The heart is enlarged. There is a small pericardial effusion. There is bilateral hilar and mediastinal lymphadenopathy, with numerous enlarged mediastinal lymph nodes measuring up to 2 cm long axis dimension. There is also bilateral axillary adenopathy, with some infiltration of the axillary fat on the left. There is a tracheostomy. The thyroid is atrophic. The bones are unremarkable. When compared to the previous exam, there is considerably less pleural fluid. There is also less dense parenchymal consolidation. Background groundglass opacity is similar, however. The cardiomegaly and pericardial fluid were previously evident. The mediastinal lymphadenopathy is a new finding. The axillary nodes have also increased in size. There is much less edema of the subcutaneous fat Abdomen pelvis: There is a gastrostomy. Stomach and duodenum are otherwise unremarkable. The appendix is normal. No evidence of diverticulosis or diverticulitis. There is a small amount of free intraperitoneal fluid, predo minantly in the pelvis. This is somewhat high in attenuation, measuring up to 21 Hounsfield units. No small bowel distention. No free intraperitoneal gas. There is a rectal tube in place. The lack of IV contrast limits assessment of the solid organs. The liver demonstrates a low-attenuation lesion in segment 6 which demonstrates nonspecific soft tissue attenuation, is ill-defined but measures approximately 2 cm in diameter. The liver is also enlarged. Patient is status post cholecystectomy. No biliary ductal dilatation. The pancreas is unremarkable. Spleen is mildly enlarged, measuring up to 13.5 cm long axis dimension. The adrenals and kidneys are unremarkable. There are prominent but not frankly enlarged retroperitoneal nodes. No pelvic mass or adenopathy. The uterus and adnexal structures are unremarkable. There is a Vann catheter in place. Small amount of air within the bladder presumably is related to the Vann catheterization. There is mild diffuse edema of the subcutaneous fat. The bones are unremarkable. IMPRESSION: Mediastinal and bilateral hilar lymphadenopathy. This is a new finding since previous study of 02/18/2020. This could indicate inflammatory lymphadenopathy, metastatic lymphadenopathy, or lymphoproliferative disorder. Splenomegaly. This is also probably new since the previous 02/18/2020 exam, although the spleen was incompletely included on that study Bilateral parenchymal opacities, as described. Most likely on the basis of pulmonary edema, although pneumonia also possible. This is less severe than on the previous study Low-attenuation right lobe liver lesion. This could represent primary neoplasm, metastatic neoplasm, benign hemangioma, among other possibilities. Consider further evaluation with multiphasic contrast enhanced CT Bilateral pleural effusions, much decreased since the previous exam Tracheostomy Diffuse edema of the subcutaneous fat, improved since 02/18/2020 Free intraperitoneal fluid. High attenuation of this indicates that it could be bloody Rectal tube Gastrostomy Vann catheter (5) Liver mass Assessment & Plan: noted on CT pending repeat CT with contrast - noted ? infection vs abscess? ?mets? Abnormal right kidney, with areas of low attenuation as described likely representing areas of nephritis. There is a complex lesion coming off the lower pole of the right kidney. This could represent a renal neoplasm, but findings are somewhat suspicious for a small abscess. Hepatic abnormality described previously is demonstrated to have mostly low attenuation with some rim enhancement. As this is contiguous with an area of apparent inflammatory change in the right kidney, this could represent a small liver abscess secondary to hepatic invasion of renal infection. This could also represent a complex cyst or an infected cyst. Given the contiguity to the right kidney, it is also possible but less likely that this represents an exophytic renal abscess indenting the liver. Abnormal low-attenuation areas in the left kidney likewise are suspicious for areas of multifocal nephritis. There is a complex low-attenuation lesion with rim enhancement and septation. This could represent a complicated cyst or could represent a small renal abscess. Cystic neoplasm also possible although less likely. Sonography may be useful to better characterize if clinically indicated. Bilateral basilar pulmonary parenchymal infiltrates, likely pneumonia or pulmonary edema secondary to congestive heart failure Trace left pleural effusion also noted Hepatomegaly Thyromegaly Ascites fluid Rectal tube and gastrostomy noted. Cardiomegaly Zia Chung May 29, 2020 10:58
[2020-05-29 12:00] VITALS: BP 105/73
[2020-05-29 14:00] VITALS: BP 105/73
--- NOTE | 2020-05-29 14:09 | NUR ---
DISCHARGE PLANNED PATIENT HAS BEEN ACCEPTED BACK TO [facility] ROOM 217-B RECEIVABLES SPECIALIST WILL ARRANGE AMBULANCE TRANSPORT FOR [id number]
--- NOTE | 2020-05-29 14:30 | NUR ---
NURSE NOTES: pt keeps scratching hard and she is causing skin brake down on back and arms. cleaned pt and applied lotion to skin. pt stopped scratching for right now.
[2020-05-29] MEDS ORDERED: NS 275ml ONE ×2 (15:04→15:07)
--- NOTE | 2020-05-29 16:14 | Diagnostic Imaging Report ---
Clinical Indication: Worsening anemia, hypotension, history of breast cancer, multiple medical problems Technique: Patient given enteric contrast IV administration nonionic contrast. Venous phase spiral acquisition obtained through the abdomen and pelvis. Multiplanar reconstructions were generated. Total dose length product 263 mGycm. CTDIvol(s) 5 mGy. Dose reduction achieved using automated exposure control Comparison: 05/20/2020 multi phasic exam Findings: Previously demonstrated mixed enhancing and low attenuation lesion seen either within the posteromedial right hepatic lobe or arising exophytic from the kidney and protruding into the right hepatic lobe has markedly decreased in size, currently measures approximately 15 x 11 mL, previously 30 x 20 in particular, there is less liquid component. Previously demonstrated right lower pole renal or perinephric lesion as also markedly decreased in size, currently measuring 10 extending by 16 mm, previously 28 x 16. The right kidney now enhances normally. Previously demonstrated left renal interpolar region lesion has largely resolved, now visible only as a very subtle hypoattenuating area measuring 15 x 8 mm, previously demonstrated liquid component no longer evident. The left kidney likewise now enhances normally. There is increased intraperitoneal fluid in the right paracolic gutter and the inferior joint is fashion as compared to the previous study. Overall volume of pelvic fluid appears unchanged. The liver is otherwise unremarkable. The gallbladder has been removed. Biliary ducts are nondilated. The pancreas, spleen, adrenals are all unremarkable. Prominent retroperitoneal nodes are again demonstrated. Uterus and adnexal structures appear unremarkable. Vann catheter is again demonstrated. Gas is seen within the bladder lumen. No pelvic mass or adenopathy. A rectal tube is again demonstrated. No evidence of diverticulosis or diverticulitis. Normal appendix. No small bowel distention or small bowel wall thickening. No free intraperitoneal gas. A well-positioned gastrostomy is again demonstrated Again demonstrated are small bilateral pleural effusions, slightly increased from the prior exam. The heart is enlarged. There is a small amount of pericardial fluid again demonstrated, slightly increased. The included lung bases demonstrate interstitial septal thickening and hazy parenchymal opacity. Impression: Since prior study 05/20/2020, interim marked improvement of previously demonstrated right lobe hepatic versus renal lesion, and marked improvement of the other bilateral inflammatory lesions previously demonstrated. Since the previous study, interim resolution of the previously demonstrated renal perfusion abnormalities, likely reflecting resolved nephritis. Slightly increased intraperitoneal fluid. Slightly increased bilateral pleural effusions Slightly increased pericardial fluid Cardiomegaly Interstitial septal thickening and hazy pulmonary parenchymal opacity, probably on the basis of pulmonary edema, not significantly changed from the previous study Rectal tube Vann catheter Gastrostomy The CT scanner at [facility] is accredited by the [employer] and the scans are performed using protocols designed to limit radiation exposure to as low as reasonably achievable to attain images of sufficient resolution adequate for diagnostic evaluation.
--- NOTE | 2020-05-29 16:45 | NUR ---
NURSE NOTES: GODFREY pt susu at 1630. pt tolerated it well and peeh in bed afterwards.
--- NOTE | 2020-05-29 17:25 | NUR ---
NURSE NOTES: pt DC to SNF via ambulance in stable condition. pt cardiac surgeon was taken off, no signs of cardiac or respiratory distress. pt has a trach and special ambulance was called to transport pt. IV was discontinued no bleeding noted. Vann and rectal tube was discontinued. Wound pictures were taken and downloaded. Pt took all belongings with her (blanket). DC packet given to ambulance personnel. DC instructions explained to Pt, Report was called in and spoke to Marnie, pt room is 217a. Family was informed pt was DC today to SNF, spoke to son.
--- NOTE | 2020-05-29 18:52 | Cardiology Progress Note ---
Subjective DATE OF SERVICE: May 29, 2020 Baseline mentation; noncommunicative Monitor: sinus with PAC's; no new sustained runs of atrial arrhythmias Remains without apparent distress per staff. Remains on vent support via trach. Objective Last 24 Hour Vital Signs Date Time Temp Pulse Resp B/P (MAP) Pulse Ox O2 Delivery O2 Flow Rate FiO2 05/29/20 16:00 40 05/29/20 16:00 Mechanical Ventilator 05/29/20 15:30 96 18 40 05/29/20 14:00 99 105/73 05/29/20 12:00 Mechanical Ventilator 05/29/20 12:00 40 05/29/20 12:00 97.5 99 20 105/73 (84) 100 05/29/20 12:00 106 05/29/20 11:15 89 18 40 05/29/20 08:53 102 116/74 05/29/20 08:00 40 05/29/20 08:00 Mechanical Ventilator 05/29/20 08:00 97.5 102 18 116/74 (88) 100 05/29/20 08:00 105 05/29/20 07:12 94 18 40 05/29/20 05:46 107 135/66 05/29/20 04:00 40 05/29/20 04:00 99.1 107 21 135/83 (100) 100 05/29/20 04:00 Mechanical Ventilator 05/29/20 03:33 102 05/29/20 03:05 92 19 40 05/29/20 00:00 Mechanical Ventilator 05/29/20 00:00 40 05/28/20 23:58 99.1 103 19 119/75 (90) 100 05/28/20 23:25 96 05/28/20 23:07 88 18 40 05/28/20 22:30 111 122/77 05/28/20 21:30 106 110/71 05/28/20 20:00 98.6 106 22 110/71 (84) 100 05/28/20 20:00 40 05/28/20 20:00 106 05/28/20 20:00 Mechanical Ventilator 05/28/20 19:05 108 05/28/20 19:01 98 14 40 HEENT: Thick Trach secretions RHYTHM: NSR, Afib LUNGS: bilateral rhonchi CARDIAC: normal rate, regular rhythm, normal S1 and S2, other - ectopic beats ABDOMEN: normal bowel sounds, non tender, soft, hepatomegaly, splenomegaly, G- Tube intact EXTREMITIES: non-tender, no calf tenderness, trace edema Microbiology Date/Time Source Procedure Growth Status 05/29/20 12:05 Nasopharynx SARS-CoV-2 RdRp Gene Assay - Final Complete Assessment/Plan Assessment/Plan Polymicrobial healthcare associated PNA Vent dep respiratory failure Paroxysmal AFib/SVT Hx breast CA Lymphadenopathy with splenomegaly Dehydration/hypernatremia resolved Hypokalemia corrected Vent support Avoid beta agonist Abx per ID Monitor volume status; free water replacement adjusted Maintain therapeutic K+/Mg++ levels Continue current beta mingo dose Would not pursue aggressive management in view of co-morbidities; agree with dischg to subacute facility. Luis Felipe Sorto MD May 29, 2020 18:52
--- NOTE | 2020-05-29 23:35 | General Progress Note ---
Subjective Allergies: Coded Allergies: No Known Allergies (Unverified , 02/09/20) Subjective Above noted seen this am prior to discharge no events tolerating feeds stools liquid - via rectal tube CT noted Objective Last 24 Hour Vital Signs Date Time Temp Pulse Resp B/P (MAP) Pulse Ox O2 Delivery O2 Flow Rate FiO2 05/29/20 16:00 40 05/29/20 16:00 Mechanical Ventilator 05/29/20 15:30 96 18 40 05/29/20 14:00 99 105/73 05/29/20 12:00 Mechanical Ventilator 05/29/20 12:00 40 05/29/20 12:00 97.5 99 20 105/73 (84) 100 05/29/20 12:00 106 05/29/20 11:15 89 18 40 05/29/20 08:53 102 116/74 05/29/20 08:00 40 05/29/20 08:00 Mechanical Ventilator 05/29/20 08:00 97.5 102 18 116/74 (88) 100 05/29/20 08:00 105 05/29/20 07:12 94 18 40 05/29/20 05:46 107 135/66 05/29/20 04:00 40 05/29/20 04:00 99.1 107 21 135/83 (100) 100 05/29/20 04:00 Mechanical Ventilator 05/29/20 03:33 102 05/29/20 03:05 92 19 40 05/29/20 00:00 Mechanical Ventilator 05/29/20 00:00 40 05/28/20 23:58 99.1 103 19 119/75 (90) 100 Intake and Output 05/28/20 05/29/20 19:00 07:00 Intake Total 1925 ml 1275 ml Output Total 675 ml Balance 1250 ml 1275 ml Intake Free Water 550 ml 250 ml IV Total 675 ml 675 ml Tube Feeding 700 ml 350 ml Output Urine Total 575 ml Stool Total 100 ml Height (Feet): 5 Height (Inches): 2.00 Weight (Pounds): 125 Objective Thin woman in JAMES no distress (+) diffuse skin disease NCAT neck supple , (+) Trach CTA RR abd soft NT ND, GT no edema Assessment/Plan Assessment/Plan: Assessment - Anemia, but with brown OB (+) stools - Diarrhea, small volume - C Diff (-) , ? tube feed related - H&H stable - Fever, PNA - Respiratory failure - Dysphagia / GT - h/o BRCA - skin disorder - lymphadenopathy on CT - liver / renal lesions on CT - infectious - improved on f/u CT - free water deficit - low albumin Recommendations - transfuse PRN - Vital AF trial - follow stool output - Beneprotein - conservative f/u per discussion with son - PPI - monitor labs - abx per ID - Onc f/u - water via GT Priti Sequeira MD May 29, 2020 23:35
== END 2020-05-29 17:25 | DRG 130 ==
LOC: EDBD 10:25 → EDUNIT# 10:25 → EDBEDREQ 10:35 → EMR 10:45 → ICU 11:39 → EDBEDREQ 16:25 → 2W 21:12
PROC: 5A1955Z Respiratory Ventilation, Greater than 96 Consecutive Hours (ICD-10-PCS; principal; 2020-05-16)
DX: J44.0 Chronic obstructive pulmonary disease with (acute) lower respiratory infection (principal); J15.1 Pneumonia due to Pseudomonas; D64.9 Anemia, unspecified; J96.11 Chronic respiratory failure with hypoxia; I95.9 Hypotension, unspecified; I31.3 Pericardial effusion (noninflammatory); R16.1 Splenomegaly, not elsewhere classified; I27.20 Pulmonary hypertension, unspecified; C50.919 Malignant neoplasm of unspecified site of unspecified female breast; D61.810 Antineoplastic chemotherapy induced pancytopenia; N15.1 Renal and perinephric abscess; J15.6 Pneumonia due to other Gram-negative bacteria; Z93.0 Tracheostomy status; Z93.1 Gastrostomy status; R13.10 Dysphagia, unspecified; Z99.11 Dependence on respirator [ventilator] status; L89.329 Pressure ulcer of left buttock, unspecified stage; L89.319 Pressure ulcer of right buttock, unspecified stage; L30.9 Dermatitis, unspecified; E46 Unspecified protein-calorie malnutrition; Z68.22 Body mass index [BMI] 22.0-22.9, adult; Z74.01 Bed confinement status; I10 Essential (primary) hypertension; E86.0 Dehydration; E43 Unspecified severe protein-calorie malnutrition; I47.1 Supraventricular tachycardia; E03.9 Hypothyroidism, unspecified; Z22.322 Carrier or suspected carrier of Methicillin resistant Staphylococcus aureus; K75.0 Abscess of liver
CPT/HCPCS: 36415; 71045; 71250; 74018; 74176; 74177; 74178; 80048; 80053; 80076; 80202; 81050; 82150; 82270; 83605; 83690; 84134; 84165; 84484; 85007; 85025; 85610; 85651; 85730; 86140; 86703; 86705; 86709; 86803; 86850; 86900; 86901; 86920; 87070; 87081; 87181; 87205; 87324; 87340; 93005; 93306; 94002; 94003; 94664; 96374; 99291; J7030; J8499; U0002